=== PATIENT | male | born 1980 | race Two or more races ===

== ENCOUNTER 2016-05-24 20:00 | Inpatient (IN) | payer MEDICAID ==
[~2016-05-24] VITALS: Ht 175.3 cm; Wt 81.6 kg
--- NOTE | 2016-05-24 20:12 | Emergency Room Report ---
History of Present Illness General Chief Complaint: Chest Pain Source: Patient, EMS (MARLY MONTIEL M.D.) Present Illness HPI 35 YOM with 2 hours of dull, 10/10 right sided non-radiating chest pain. No associated SOB, diaphoresis, nausea/vomiting. History of HTN, but doesnt smoke , denies ETOH, denies drugs. Doesnt take meds. EMS gave 3 sprays nitro and ASA with minimal improvement. (MARLY MONTIEL M.D.) Allergies: Coded Allergies: No Known Allergies (Unverified , 05/24/16) Patient History Past Medical History: HTN Past Surgical History: none Pertinent Family History: none Social History: Denies: alcohol use, drug use, smoking Immunizations: UTD Reviewed Nursing Documentation: PMH: Agreed, PSxH: Agreed (MARLY MONTIEL M.D.) Nursing Documentation-PMH Past Medical History: No Stated History (MARLY MONTIEL M.D.) Review of Systems All Other Systems: negative except mentioned in HPI (MARLY MONTIEL M.D.) Physical Exam Vital Signs Date Time Temp Pulse Resp B/P Pulse Ox O2 Delivery O2 Flow Rate FiO2 05/24/16 20:00 132 22 140/82 98 Room Air Sp02 EP Interpretation: reviewed, normal General Appearance: normal inspection, well appearing, no apparent distress, alert Head: normocephalic, atraumatic Eyes: bilateral eye EOMI, bilateral eye PERRL ENT: normal ENT inspection, hearing 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, normal voice Neck: normal inspection, full range of motion, supple, no bony tend Respiratory: normal inspection, lungs clear, normal breath sounds, no respiratory distress, no retraction, no wheezing, other, chest symmetrical Cardiovascular #1: regular rate, rhythm, no edema Gastrointestinal: normal inspection, normal bowel sounds, non tender, soft, no guarding, no hernia Genitourinary: no CVA tenderness Musculoskeletal: normal inspection, back normal, normal range of motion, Ene' s Sign negative Neurologic: normal inspection, alert, responsive, speech normal Psychiatric: normal inspection, judgement/insight normal, mood/affect normal Skin: normal inspection, normal color, no rash (MARLY MONTIEL M.D.) Medical Decision Making Diagnostic Impression: Primary Impression: lung cavitation Additional Impressions: Chest pain Qualified Codes: R07.9 - Chest pain, unspecified Pleurisy Septic embolism ER Course 35 YOM with chest pain. VSS. Afebrile. Initial EKG is sinus tach DDx ACS, PTX, PNA, MSK, PE PLAN Cardiac, O2 monitor, labs/troponin, additional SL nitro as needed, CXR, likely tele admission given severity of pain (MARLY MONTIEL M.D.) ER Course Please for the initial note that was obtained regarding the history exam and presentation At this time the patient was pending CT of the chest CT chest report indicates multiple findings including for nodules Nodules appear to have cavitating lesions Multiple differential diagnoses considered including but not limited to septic emboli, infectious pathology metastatic disease Patient had blood cultures and lactic acid obtained Further pain medication along with anticoagulations And antibiotics provided Patient at this time continues to saturate well and is admitted to telemetry bed for further inpatient care Labs Test 05/24/16 20:10 05/24/16 22:00 White Blood Count 10.8 K/UL (4.8-10.8) Red Blood Count 5.20 M/UL (4.70-6.10) Hemoglobin 15.2 G/DL (14.2-18.0) Hematocrit 44.3 % (42.0-52.0) Mean Corpuscular Volume 85 FL (80-99) Mean Corpuscular Hemoglobin 29.2 PG (27.0-31.0) Mean Corpuscular Hemoglobin Concent 34.2 G/DL (32.0-36.0) Red Cell Distribution Width 11.4 % (11.6-14.8) Platelet Count 201 K/UL (150-450) Mean Platelet Volume 8.9 FL (6.5-10.1) Neutrophils (%) (Auto) 65.7 % (45.0-75.0) Lymphocytes (%) (Auto) 19.8 % (20.0-45.0) Monocytes (%) (Auto) 12.0 % (1.0-10.0) Eosinophils (%) (Auto) 1.3 % (0.0-3.0) Basophils (%) (Auto) 1.3 % (0.0-2.0) Sodium Level 138 mEQ/L (135-145) Potassium Level 4.0 mEQ/L (3.4-4.9) Chloride Level 99 mEQ/L (98-107) Carbon Dioxide Level 22 mEQ/L (20-30) Anion Gap 17 (5-15) Blood Urea Nitrogen 11 mg/dL (7-23) Creatinine 0.8 mg/dL (0.7-1.2) Estimat Glomerular Filtration Rate > 60 mL/min (>60) Glucose Level 115 mg/dL (74-106) Calcium Level 9.4 mg/dL (8.6-10.2) Total Bilirubin 0.5 mg/dL (0.0-1.2) Aspartate Amino Transf (AST/SGOT) 34 U/L (5-40) Alanine Aminotransferase (ALT/SGPT) 43 U/L (3-41) Alkaline Phosphatase 70 U/L (40-129) Total Creatine Kinase 159 U/L (38-174) Creatine Kinase MB 2.3 ng/mL (< 6.7) Creatine Kinase MB Relative Index 1.4 Troponin I < 0.30 ng/mL (<=0.30) Total Protein 7.9 g/dL (6.6-8.7) Albumin 4.7 g/dL (3.5-5.2) Globulin 3.2 g/dL Albumin/Globulin Ratio 1.4 (1.0-2.7) Urine Opiates Screen Positive (NEGATIVE) Urine Barbiturates Screen Negative (NEGATIVE) Phencyclidine (PCP) Screen Negative (NEGATIVE) Urine Amphetamines Screen Negative (NEGATIVE) Urine Benzodiazepines Screen Negative (NEGATIVE) Urine Cocaine Screen Negative (NEGATIVE) Urine Marijuana (THC) Screen Negative (NEGATIVE) (CAMRON NGUYEN D.O.) EKG Diagnostic Results Rate: tachycardiac Rhythm: NSR ST Segments: no acute changes ASA given to the pt in ED: No (MARLY MONTIEL M.D.) Rhythm Strip Diag. Results EP Interpretation: yes Rate: 113 Rhythm: NSR, no PVC's, no ectopy (MARLY MONTIEL M.D.) EP Interpretation: yes Rate: 67 Rhythm: NSR, no PVC's, no ectopy (CAMRON NGUYEN D.O.) Chest X-Ray Diagnostic Results EP Interpretation: Yes Findings: no consolidation, no effusion, no pneumothorax, no acute cardiopulmonary disease Number of Views: 1 (MARLY MONTIEL M.D.) EP Interpretation: Yes Findings: no effusion, no pneumothorax, other - Right upper lobe cavitating lesion, heart size normal Number of Views: 1 (CAMRON NGUYEN D.O.) CT/MRI/US Diagnostic Results CT/MRI/US Diagnostic Results : Impression cT chest:No evidence of pulmonary was and. Evaluation for pulmonary embolus is slightly limited by motion artifact. Evaluation of the lung slightly limited by motion artifact. 4 lung nodules, 2 of which demonstrate evidence of cavitation. 1.1 cm nodule in the right lower lobe and 1.3 cm nodule in the left upper lobe with adjacent mild groundglass opacity and small central lucency suspicious for cavitation. 1.8 x 1.0 cm nodule in the right middle lobe, abutting the anterior pleura. 8 mm nodule in the right lower lobe anteroinferiorly. Most likely considerations include septic emboli and metastatic disease. Other considerations include unusual infections, granulomatosis with polyangiitis, and rheumatoid nodules. No lymphadenopathy. Hepatic steatosis. Mild splenomegaly. Right adrenal 2.8 cm myelolipoma. Mild gynecomastia (CAMRON NGUYEN D.O.) Reevaluation Time: 21:31 Last Vital Signs Date Time Temp Pulse Resp B/P Pulse Ox O2 Delivery O2 Flow Rate FiO2 05/24/16 20:00 132 22 140/82 98 Room Air Status: improved Reevaluation Impression Labs: No leuks. H&H stable. Troponin 0. patient has not given urine for tox yet CXR: No PNA or PTX EKG is NSR, sinus tach. HR improved to 90 from 120 after SL nitro, analgesia A: Patient still c/o severe chest pain despite IV morphine, SL nitro CT Chest done as patient now stating pain is pleuritic in nature CT chest: Endorsed to (MARLY MONTIEL M.D.) Status: improved (CAMRON NGUYEN D.O.) Disposition: ADMITTED INPATIENT Condition: Critical MARLY MONTIEL M.D. May 24, 2016 20:12 CAMRON NGUYEN D.O. May 24, 2016 23:27
[2016-05-24] MEDS ORDERED: Nitroglycerin Subl 0.4mg tab (Bottle Of 25) SL PRN ×2 (20:15→22:00)
[2016-05-24 20:21] LABS: BASOPHILS % (AUTO) 1.3 % (0.0-2.0); EOSINOPHILS % (AUTO) 1.3 % (0.0-3.0); LYMPHOCYTES % (AUTO) 19.8 % (20.0-45.0); MEAN CORPUSCULAR HEMOGLOBIN 29.2 PG (27.0-31.0); MEAN CORPUSCULAR HGB CONC 34.2 G/DL (32.0-36.0); MEAN CORPUSCULAR VOLUME 85 FL (80-99); MEAN PLATELET VOLUME 8.9 FL (6.5-10.1); NEUTROPHILS % (AUTO) 65.7 % (45.0-75.0); PLATELET COUNT 201 K/UL (150-450); RED CELL DISTRIBUTION WIDTH 11.4 % (11.6-14.8); WHITE BLOOD COUNT 10.8 K/UL (4.8-10.8)
[2016-05-24] MEDS ORDERED: Morphine Sulfate 4mg/ml Inj IVP ONE ×2 (20:30→21:30)
[2016-05-24 20:38] LABS: TROPONIN I < 0.30 ng/mL (<=0.30)
[2016-05-24 20:42] LABS: ALANINE AMINOTRANSFERASE 43 U/L (3-41); ALBUMIN/GLOBULIN RATIO 1.4 (1.0-2.7); ANION GAP 17 (5-15); ASPARTATE AMINO TRANSFERASE 34 U/L (5-40); CALCIUM 9.4 mg/dL (8.6-10.2); CARBON DIOXIDE 22 mEQ/L (20-30); CHLORIDE 99 mEQ/L (98-107); CREATININE 0.8 mg/dL (0.7-1.2); GLOMERULAR FILTRATION RATE > 60 mL/min (>60); HEMOLYSIS 22; SODIUM 138 mEQ/L (135-145); TOTAL PROTEIN 7.9 g/dL (6.6-8.7)
[2016-05-24] MEDS ORDERED: NKM (20:51)
[2016-05-24 20:52] LABS: CKMB 2.3 ng/mL (< 6.7)
[2016-05-24 21:00] VITALS: BP 142/80
[2016-05-24 22:00] VITALS: BP 123/78
[2016-05-24] MEDS ORDERED: DuoNeb 0.5-3(2.5)mg/3ml neb HHN PRN (22:00)
[2016-05-24] MEDS ORDERED: Enalaprilat 2.5mg/2ml Inj IV PRN (22:00)
[2016-05-24] MEDS ORDERED: Ketorolac 30mg Inj IV PRN (22:00)
[2016-05-24] MEDS ORDERED: Diltiazem 25mg/5ml IV PRN (22:00)
[2016-05-24] MEDS ORDERED: Miralax 17gm pkt ORAL PRN (22:00)
[2016-05-24 23:00] VITALS: BP 129/83
[2016-05-24] MEDS ORDERED: Heparin 5000 units/ml inj IV ONE (23:15)
[2016-05-24] MEDS ORDERED: Heparin 25,000u/D5W 500ml 500 ML IV SCH (23:15)
[2016-05-24] MEDS ORDERED: HYDROmorphone 1mg/ml Carpuject IVP ONE (23:30)
[2016-05-25] VITALS (17 sets, daily range): BP systolic 113–134; BP diastolic 62–90
[2016-05-25] MEDS ORDERED: Morphine Sulfate 2mg/ml Inj ONE (06:17)
[2016-05-25 06:18] LABS: BASOPHILS % (AUTO) 1.6 % (0.0-2.0); EOSINOPHILS % (AUTO) 1.2 % (0.0-3.0); LYMPHOCYTES % (AUTO) 17.2 % (20.0-45.0); MEAN CORPUSCULAR HEMOGLOBIN 29.1 PG (27.0-31.0); MEAN CORPUSCULAR HGB CONC 33.9 G/DL (32.0-36.0); MEAN CORPUSCULAR VOLUME 86 FL (80-99); MEAN PLATELET VOLUME 9.6 FL (6.5-10.1); MONOCYTES % (AUTO) 10.4 % (1.0-10.0); NEUTROPHILS % (AUTO) 69.7 % (45.0-75.0); PLATELET COUNT 174 K/UL (150-450); RED CELL DISTRIBUTION WIDTH 11.4 % (11.6-14.8); WHITE BLOOD COUNT 10.7 K/UL (4.8-10.8)
[2016-05-25] MEDS: Morphine Sulfate 2mg/ml Inj IVP PRN ×2 (06:23→18:37)
[2016-05-25 06:40] LABS: INR 1.1 (0.9-1.1); PROTHROMBIN TIME 10.7 SEC (9.30-11.50)
[2016-05-25 07:00] LABS: TROPONIN I < 0.30 ng/mL (<=0.30)
[2016-05-25] MEDS ORDERED: Heparin 25,000u/D5W 500ml 500 ML IV SCH ×2 (07:30→16:00)
[2016-05-25] MEDS ORDERED: Heparin 5000 units/ml inj IV ONE ×3 (07:30→16:00)
[2016-05-25 07:47] LABS: CRP QUANT 4.4 mg/dL (< 0.5)
[2016-05-25 07:51] LABS: THYROID STIMULATING HORMONE 1.21 uIU/mL (0.300-4.500)
[2016-05-25] MEDS ORDERED: Heparin 5000 units/ml inj SUBQ SCH ×2 (09:00)
[2016-05-25] MEDS: Aspirin Baby 81mg ORAL SCH (09:27)
--- NOTE | 2016-05-25 10:03 | Diagnostic Imaging Report ---
Indication: PAIN Technique: One view of the chest Comparison: none Findings: Lungs and pleural spaces are clear. Prominent costochondral calcification of the first rib is seen in the right lung apex. The heart size is normal. No acute process. Multiple pulmonary masses described on subsequent chest CT angiogram are not evident on plain radiography Impression: No acute process This agrees with the preliminary interpretation provided by the emergency room physician
--- NOTE | 2016-05-25 11:09 | Cardiac Electrophysiology PN ---
Subjective Subjective Patient seen in ER. [id number] Objective Last 24 Hour Vital Signs Date Time Temp Pulse Resp B/P Pulse Ox O2 Delivery O2 Flow Rate FiO2 05/25/16 08:56 32 05/25/16 08:56 90 21 100 Nasal Cannula 3.0 32 05/25/16 08:55 86 20 99 Nasal Cannula 3.0 32 05/25/16 08:54 86 20 Nasal Cannula 3.0 32 05/25/16 08:00 94 15 131/80 100 Nasal Cannula 3.0 94 05/25/16 07:00 88 15 117/72 96 Nasal Cannula 3.0 88 05/25/16 06:47 98.5 05/25/16 06:00 83 21 115/72 99 Nasal Cannula 3.0 83 05/25/16 05:00 79 18 130/90 98 Nasal Cannula 3.0 79 05/25/16 04:00 80 16 127/62 98 Nasal Cannula 3.0 80 05/25/16 03:42 98.5 80 17 113/82 97 Nasal Cannula 3.0 80 05/25/16 03:00 80 17 113/82 97 Nasal Cannula 3.0 80 05/25/16 02:00 85 18 125/87 91 Nasal Cannula 3.0 05/25/16 01:00 83 18 126/83 97 Nasal Cannula 3.0 05/25/16 00:50 98.5 88 14 124/86 96 Room Air 05/24/16 23:00 94 14 129/83 99 Room Air 05/24/16 22:00 108 15 123/78 91 Room Air 05/24/16 21:00 103 15 142/80 99 Room Air 05/24/16 20:15 153/79 05/24/16 20:10 129 17 Room Air 05/24/16 20:00 132 22 140/82 98 Room Air Intake and Output 05/24/16 05/25/16 19:00 07:00 Intake Total 108.5 ml Balance 108.5 ml Intake IV Total 108.5 ml # Voids 1 Laboratory Tests Test 05/24/16 20:10 05/24/16 22:00 05/25/16 01:15 05/25/16 06:10 White Blood Count 10.8 K/UL (4.8-10.8) 10.7 K/UL (4.8-10.8) Red Blood Count 5.20 M/UL (4.70-6.10) 4.90 M/UL (4.70-6.10) Hemoglobin 15.2 G/DL (14.2-18.0) 14.3 G/DL (14.2-18.0) Hematocrit 44.3 % (42.0-52.0) 42.1 % (42.0-52.0) Mean Corpuscular Volume 85 FL (80-99) 86 FL (80-99) Mean Corpuscular Hemoglobin 29.2 PG (27.0-31.0) 29.1 PG (27.0-31.0) Mean Corpuscular Hemoglobin Concent 34.2 G/DL (32.0-36.0) 33.9 G/DL (32.0-36.0) Red Cell Distribution Width 11.4 % (11.6-14.8) L 11.4 % (11.6-14.8) L Platelet Count 201 K/UL (150-450) 174 K/UL (150-450) Mean Platelet Volume 8.9 FL (6.5-10.1) 9.6 FL (6.5-10.1) Neutrophils (%) (Auto) 65.7 % (45.0-75.0) 69.7 % (45.0-75.0) Lymphocytes (%) (Auto) 19.8 % (20.0-45.0) L 17.2 % (20.0-45.0) L Monocytes (%) (Auto) 12.0 % (1.0-10.0) H 10.4 % (1.0-10.0) H Eosinophils (%) (Auto) 1.3 % (0.0-3.0) 1.2 % (0.0-3.0) Basophils (%) (Auto) 1.3 % (0.0-2.0) 1.6 % (0.0-2.0) Sodium Level 138 mEQ/L (135-145) Potassium Level 4.0 mEQ/L (3.4-4.9) Chloride Level 99 mEQ/L (98-107) Carbon Dioxide Level 22 mEQ/L (20-30) Anion Gap 17 (5-15) H Blood Urea Nitrogen 11 mg/dL (7-23) Creatinine 0.8 mg/dL (0.7-1.2) Estimat Glomerular Filtration Rate > 60 mL/min (>60) Glucose Level 115 mg/dL (74-106) H Calcium Level 9.4 mg/dL (8.6-10.2) Total Bilirubin 0.5 mg/dL (0.0-1.2) Aspartate Amino Transf (AST/SGOT) 34 U/L (5-40) Alanine Aminotransferase (ALT/SGPT) 43 U/L (3-41) H Alkaline Phosphatase 70 U/L (40-129) Total Creatine Kinase 159 U/L (38-174) Creatine Kinase MB 2.3 ng/mL (< 6.7) Creatine Kinase MB Relative Index 1.4 Troponin I < 0.30 ng/mL (<=0.30) < 0.30 ng/mL (<=0.30) Total Protein 7.9 g/dL (6.6-8.7) Albumin 4.7 g/dL (3.5-5.2) Globulin 3.2 g/dL Albumin/Globulin Ratio 1.4 (1.0-2.7) Urine Opiates Screen Positive (NEGATIVE) H Urine Barbiturates Screen Negative (NEGATIVE) Phencyclidine (PCP) Screen Negative (NEGATIVE) Urine Amphetamines Screen Negative (NEGATIVE) Urine Benzodiazepines Screen Negative (NEGATIVE) Urine Cocaine Screen Negative (NEGATIVE) Urine Marijuana (THC) Screen Negative (NEGATIVE) Lactic Acid Level 0.70 mmol/L (0.66-2.22) Prothrombin Time 10.7 SEC (9.30-11.50) Prothromb Time International Ratio 1.1 (0.9-1.1) Activated Partial Thromboplast Time 31 SEC (23-33) C-Reactive Protein, Quantitative 4.4 mg/dL (< 0.5) H Triglycerides Level 176 mg/dL (< 150) H Cholesterol Level 198 mg/dL (< 200) LDL Cholesterol 123 mg/dL (60-99) H HDL Cholesterol 40 mg/dL (> 60) Cholesterol/HDL Ratio 5.0 (3.3-4.4) H Thyroid Stimulating Hormone (TSH) 1.210 uIU/mL (0.300-4.500) JOHN PENA May 25, 2016 11:09
--- NOTE | 2016-05-25 18:48 | Consultation ---
DATE OF CONSULTATION: 05/25/2016 CARDIOLOGY CONSULTATION REFERRING PHYSICIAN: Jesse Dean M.D. REASON FOR CONSULTATION: Tachycardia and shortness of breath. HISTORY OF PRESENT ILLNESS: The patient is a 35-year-old gentleman with no major past medical history and is on no medication at home, came to the emergency room with two hours of dull, 10/10 right-sided chest pain. The patient did not have any shortness of breath. Based on the ER note that he has history of hypertension, but when asked to me does not take any blood pressure medication, takes occasional Tylenol. Denies any prior cardiac issue. The patient received three nitroglycerin sprays and aspirin with minimal improvement. The patient came to the emergency room where the blood pressure was 140/82 with heart rate was 132 and respiration of 22. The patient was put on isolation room. A Cardiology consultation was obtained for further evaluation and management. PAST MEDICAL HISTORY: None. MEDICATIONS: At home is none. SOCIAL HISTORY: He lives with his . Does not smoke or drink alcohol. FAMILY HISTORY: Noncontributory. REVIEW OF SYSTEMS: Negative other than what was mentioned history of present illness. PHYSICAL EXAMINATION: VITAL SIGNS: Blood pressure 140/82, pulse 132, respirations 22. HEAD AND NECK: No JVD. LUNGS: Decreased breath sounds on the right side. CARDIOVASCULAR: Regular S1 and S2 with no gallop or murmur. Tachycardic. ABDOMEN: Soft and nontender. EXTREMITIES: No pitting edema. LABORATORY AND DIAGNOSTIC DATA: His EKG shows sinus tachycardia at [address]-T wave abnormalities. Lab show white count 10.8 and hemoglobin is 15.2. EKG showed sinus tachycardia at a rate of 120s with no acute ST wave abnormality. White count 10.8, hemoglobin 15.2, hematocrit of 44% and platelet count of 201,000. Sodium 138, potassium 4.0, BUN of 11, and creatinine 0.8. Troponin is negative. ASSESSMENT AND PLAN: 1. Tachycardia due to sinus tachycardia with no evidence of atrial fibrillation or any other cardiac arrhythmia, this is likely due to patient's underlying pulmonary process. 2. Right upper chest pain, likely due to the patient's underlying pulmonary process. The patient is in isolation for cavitary lesion on chest CT. ID consultation is pending at the time of this dictation. Thank very much, Dr. Dean, for allowing me to participate in the care of this patient. Please do not hesitate to contact me for any questions regarding my evaluation. Chema Hunter M.D. DR: DAISHA JOB#: [id number] CC:
--- NOTE | 2016-05-25 20:46 | Cardiology Report ---
APPROVED REPORT EKG Measurement Heart [id number] Sinus tachycardia Otherwise normal ECG
[2016-05-26] VITALS: BP 131/83
[2016-05-26] MEDS ORDERED: Heparin 5000 units/ml inj IV ONE
[2016-05-26 04:00] VITALS: BP 133/74
[2016-05-26 08:39] LABS: TROPONIN I < 0.30 ng/mL (<=0.30)
[2016-05-26] MEDS: Aspirin Baby 81mg ORAL SCH (08:45)
[2016-05-26 08:50] VITALS: BP 138/69
[2016-05-26] MEDS ORDERED: Heparin 25,000u/D5W 500ml 500 ML IV SCH ×2 (09:04)
[2016-05-26 09:23] LABS: ANION GAP 18 (5-15); CALCIUM 9.4 mg/dL (8.6-10.2); CARBON DIOXIDE 23 mEQ/L (20-30); CHLORIDE 96 mEQ/L (98-107); CREATININE 0.7 mg/dL (0.7-1.2); GLOMERULAR FILTRATION RATE > 60 mL/min (>60); HEMOLYSIS 6; POTASSIUM 4.1 mEQ/L (3.4-4.9); SODIUM 137 mEQ/L (135-145)
--- NOTE | 2016-05-26 09:57 | Cardiac Electrophysiology PN ---
Assessment/Plan Status: stable, progressing Status Narrative Mr. Pineda is stable from a cardiac standpoint. Chest CT showed no evidence for pulm embolus, but pulm nodules w/ cavitation - concern for TB Assessment/Plan Noncardiac chest pain- no further w/u for CAD indicated. Will dc heparin iv - cont sc heparin for dvt prophylaxis w/u for pulm nodules per Dr. Sorensen Subjective ROS Limited/Unobtainable: No Subjective No c/o dyspnea, cough. He c/o pleuritic R chest pain, Objective Last 24 Hour Vital Signs Date Time Temp Pulse Resp B/P Pulse Ox O2 Delivery O2 Flow Rate FiO2 05/26/16 08:50 97.7 94 18 138/69 94 Room Air 05/26/16 04:00 98.2 94 20 133/74 98 Room Air 05/26/16 04:00 85 05/26/16 00:00 87 05/26/16 00:00 97.9 98 20 131/83 93 Room Air 05/25/16 20:00 90 05/25/16 16:55 96 05/25/16 16:25 87 21 124/77 99 Room Air 05/25/16 16:23 98.5 87 21 124/77 99 Nasal Cannula 86 05/25/16 15:00 86 21 115/70 99 Nasal Cannula 3.0 86 05/25/16 13:00 80 15 131/79 97 Nasal Cannula 3.0 80 05/25/16 12:28 77 12 125/79 99 Nasal Cannula 3.0 77 05/25/16 11:00 90 14 122/76 100 Nasal Cannula 3.0 90 05/25/16 10:00 91 15 134/80 100 Nasal Cannula 3.0 91 General Appearance: WD/WN, no apparent distress, alert EENT: PERRL/EOMI, pharynx normal Neck: supple, no JVD Rhythm: NSR Cardiovascular: normal rate, regular rhythm, no gallop/murmur Respiratory/Chest: no respiratory distress, other - min rhonchi R lower murdock Abdomen: non tender, soft Extremities: no swelling Intake and Output 05/25/16 05/26/16 19:00 07:00 Intake Total 515.146 ml Output Total 1070 ml 1200 ml Balance -1070 ml -684.854 ml Intake Oral 280 ml IV Total 235.146 ml Output Urine Total 1070 ml 1200 ml # Voids 2 Laboratory Tests Test 05/25/16 13:57 05/25/16 22:00 05/26/16 08:05 Activated Partial Thromboplast Time 39 SEC (23-33) H 46 SEC (23-33) H 56 SEC (23-33) H Sodium Level 137 mEQ/L (135-145) Potassium Level 4.1 mEQ/L (3.4-4.9) Chloride Level 96 mEQ/L (98-107) L Carbon Dioxide Level 23 mEQ/L (20-30) Anion Gap 18 (5-15) H Blood Urea Nitrogen 9 mg/dL (7-23) Creatinine 0.7 mg/dL (0.7-1.2) Estimat Glomerular Filtration Rate > 60 mL/min (>60) Glucose Level 119 mg/dL (74-106) H Calcium Level 9.4 mg/dL (8.6-10.2) Troponin I < 0.30 ng/mL (<=0.30) Pro-B-Type Natriuretic Peptide 10 pg/mL (0-125) Microbiology Date/Time Source Procedure Growth Status 05/25/16 01:15 Blood Blood Culture - Preliminary NO GROWTH AFTER 24 HOURS Resulted 05/25/16 01:15 Blood Blood Culture - Preliminary NO GROWTH AFTER 24 HOURS Resulted BOLIVAR PRINCE May 26, 2016 09:57
[2016-05-26 12:00] VITALS: BP 127/87
--- NOTE | 2016-05-26 15:38 | Consultation ---
History of Present Illness General Date patient seen: May 26, 2016 Chief Complaint: Chest Pain Reason for Consultation: cavitary lesion Present Illness HPI 35 year old male presented with right sided chest pain, His CT of chest showed Right upper lobe cavitary lesion. He is admitted to rule out TB and w/u his tachycardia and chest pain Allergies: Coded Allergies: No Known Allergies (Unverified , 05/24/16) Medication History Scheduled No Known Medications* (NKM - No Known Medications*), 0 ., (Reported) Patient History Healthcare decision maker Resuscitation status Full Code Advanced Directive on File Past Medical/Surgical History Past Medical/Surgical History: (1) No significant past medical history Review of Systems Eye: Reports: no symptoms ENT: Reports: no symptoms Respiratory: Reports: no symptoms Cardiovascular: Reports: no symptoms Gastrointestinal: Reports: no symptoms Genitourinary: Reports: no symptoms Physical Exam General Appearance: WD/WN Lines, tubes and drains: peripheral, central line HEENT: normocephalic, atraumatic Neck: non-tender, normal alignment Respiratory/Chest: chest wall non-tender, lungs clear Cardiovascular/Chest: normal peripheral pulses, normal rate Abdomen: normal bowel sounds Genitourinary/Rectal: normal genital exam Extremities: normal range of motion Last 24 Hour Vital Signs Date Time Temp Pulse Resp B/P Pulse Ox O2 Delivery O2 Flow Rate FiO2 05/26/16 12:00 97.5 87 18 127/87 94 Room Air 05/26/16 12:00 80 05/26/16 08:50 97.7 94 18 138/69 94 Room Air 05/26/16 08:00 85 05/26/16 04:00 98.2 94 20 133/74 98 Room Air 05/26/16 04:00 85 05/26/16 00:00 87 05/26/16 00:00 97.9 98 20 131/83 93 Room Air 05/25/16 20:00 90 05/25/16 16:55 96 05/25/16 16:25 87 21 124/77 99 Room Air 05/25/16 16:23 98.5 87 21 124/77 99 Nasal Cannula 86 Intake and Output 05/25/16 05/26/16 19:00 07:00 Intake Total 515.146 ml Output Total 1070 ml 1200 ml Balance -1070 ml -684.854 ml Intake Oral 280 ml IV Total 235.146 ml Output Urine Total 1070 ml 1200 ml # Voids 2 Laboratory Tests Test 05/25/16 22:00 05/26/16 08:05 05/26/16 11:00 Activated Partial Thromboplast Time 46 SEC (23-33) H 56 SEC (23-33) H Sodium Level 137 mEQ/L (135-145) Potassium Level 4.1 mEQ/L (3.4-4.9) Chloride Level 96 mEQ/L (98-107) L Carbon Dioxide Level 23 mEQ/L (20-30) Anion Gap 18 (5-15) H Blood Urea Nitrogen 9 mg/dL (7-23) Creatinine 0.7 mg/dL (0.7-1.2) Estimat Glomerular Filtration Rate > 60 mL/min (>60) Glucose Level 119 mg/dL (74-106) H Calcium Level 9.4 mg/dL (8.6-10.2) Troponin I < 0.30 ng/mL (<=0.30) Pro-B-Type Natriuretic Peptide 10 pg/mL (0-125) TB Test (T-Spot) Pending TB Test Nil Control (T-Spot) Pending TB Test Panel A (T-Spot) Pending TB Test Panel B (T-Spot) Pending TB Test Positive Control (T-Spot) Pending Height (Feet): 5 Height (Inches): 9.00 Weight (Pounds): 180 Medications Current Medications Medications (Trade) Dose Ordered Sig/Keila Route PRN Reason Start Time Stop Time Status Last Admin Dose Admin Acetaminophen (Tylenol) 650 mg Q4H PRN ORAL FEVER 05/24/16 22:00 06/23/16 21:59 Albuterol/ Ipratropium (DuoNeb 0.5-3(2.5)mg/3ml) 3 ml Q4H PRN HHN Shortness of Breath 05/24/16 22:00 05/29/16 21:59 05/25/16 08:48 Aspirin (ASA) 162 mg DAILY ORAL 05/25/16 09:00 06/24/16 08:59 05/26/16 08:45 Diltiazem HCl (Cardizem) 10 mg Q1H PRN IV heart rate more than 120, 05/24/16 22:00 06/23/16 21:59 Enalaprilat (Vasotec) 2.5 mg Q6H PRN IV sbp more than 160 05/24/16 22:00 06/23/16 21:59 Heparin Sodium (Porcine) (Heparin 5000 units/ml) 5,000 units EVERY 12 HOURS SUBQ 05/26/16 21:00 06/25/16 20:59 Morphine Sulfate (Morphine Sulfate) 2 mg Q4H PRN IVP severe Pain (Pain Scale 7-10) 05/24/16 22:00 05/31/16 21:59 05/25/16 18:37 Nitroglycerin (Ntg) 0.4 mg Q5M x 3 doses PRN SL Prn Chest Pain 05/24/16 22:00 06/23/16 21:59 Ondansetron HCl (Zofran) 4 mg Q6H PRN IVP Nausea & Vomiting 05/24/16 22:00 06/23/16 21:59 05/25/16 06:23 Pantoprazole (Protonix) 40 mg ACBREAKFAST ORAL 05/26/16 06:30 06/24/16 08:59 05/25/16 09:28 Polyethylene Glycol (Miralax) 17 gm DAILYPRN PRN ORAL Constipation 05/24/16 22:00 06/23/16 21:59 Temazepam (Restoril) 15 mg HSPRN PRN ORAL Insomnia 05/24/16 22:00 05/31/16 21:59 Assessment/Plan Problem List: (1) Cavitary lung disease ICD Codes: J98.4 - Other disorders of lung SNOMED: 63979607 (2) Chest pain ICD Codes: R07.9 - Chest pain, unspecified SNOMED: [id number] Qualifiers: Qualified Codes: R07.9 - Chest pain, unspecified (3) Pleurisy ICD Codes: R09.1 - Pleurisy SNOMED: 473790169, [id number] Assessment/Plan isolation sputum for afb serology SAGAR CHRIS May 26, 2016 15:38
[2016-05-26 16:00] VITALS: BP 130/68
--- NOTE | 2016-05-26 16:37 | History and Physical Report ---
DATE OF ADMISSION: 05/24/2016 HISTORY OF PRESENT ILLNESS: The patient is admitted for chest pain, rule out acute coronary syndrome. The patient has been complaining of nonradiating chest pain for a couple of days. No associated diaphoresis, nausea, vomiting, or diarrhea. Denies fever or chills. No orthopnea. PAST MEDICAL HISTORY: Significant for hypertension. PAST SURGICAL HISTORY: None. MEDICATIONS: No known medications. ALLERGIES: No known allergies. SOCIAL HISTORY: The patient denies smoking, alcohol, or illicit drugs. FAMILY HISTORY: Noncontributory. REVIEW OF SYSTEMS: HEENT: Denies headache. Respiratory: Denies shortness of breath. Denies cough. Cardiovascular: He reports of chest pain for a couple of days, nonradiating. Not appreciated any orthopnea or palpitation. GI: Denies nausea, vomiting, or diarrhea. Denies heartburn. Extremities: Denies pain. 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 PHYSICAL EXAMINATION: VITAL SIGNS: Temperature is 97.9 degrees, pulse 98, and blood pressure 131/83. HEENT: PERRLA. NECK: Supple. No lymphadenopathy. CHEST: Clear to auscultation. GI: Soft, nontender, and nondistended. No organomegaly. EXTREMITIES: No edema. Moves all four extremities. NEUROLOGIC: Intact to light touch. Reflexes are equal on both sides. Moving all four extremities. Sensory is intact to light touch. LABORATORY DATA: WBC of 10.8, hemoglobin of 15.2, and platelets of 201,000. Troponin is negative. No significant EKG findings. ASSESSMENT AND PLAN: Chest pain, rule out acute coronary syndrome. Consult Dr. Hunter once is done with the workup. We will discharge the patient home. Jesse Dean M.D. DR: LANDON JOB#: [id number] CC:
[2016-05-26 17:01] LABS: BASOPHILS % (AUTO) 2.1 % (0.0-2.0); EOSINOPHILS % (AUTO) 3.2 % (0.0-3.0); LYMPHOCYTES % (AUTO) 20.5 % (20.0-45.0); MEAN CORPUSCULAR HEMOGLOBIN 29.4 PG (27.0-31.0); MEAN CORPUSCULAR HGB CONC 34.1 G/DL (32.0-36.0); MEAN CORPUSCULAR VOLUME 86 FL (80-99); MEAN PLATELET VOLUME 8.9 FL (6.5-10.1); NEUTROPHILS % (AUTO) 63.1 % (45.0-75.0); PLATELET COUNT 207 K/UL (150-450); RED BLOOD COUNT 5.15 M/UL (4.70-6.10); RED CELL DISTRIBUTION WIDTH 10.9 % (11.6-14.8); WHITE BLOOD COUNT 8.8 K/UL (4.8-10.8)
[2016-05-26] MEDS ORDERED: PPD Tuberculin Skin Test 5TU IDERMAL ONE (18:00)
[2016-05-26 20:00] VITALS: BP 126/74
[2016-05-26] MEDS: Heparin 5000 units/ml inj SUBQ SCH (21:45)
[2016-05-27] VITALS: BP 127/65
[2016-05-27 04:13] VITALS: BP 120/91
[2016-05-27 08:46] VITALS: BP 128/76
[2016-05-27] MEDS: Aspirin Baby 81mg ORAL SCH (10:02)
[2016-05-27] MEDS: Heparin 5000 units/ml inj SUBQ SCH ×2 (10:07→21:54)
--- NOTE | 2016-05-27 11:23 | General Progress Note ---
Assessment/Plan Problem List: (1) Chest pain ICD Codes: R07.9 - Chest pain, unspecified SNOMED: 32825886 Qualifiers: Qualified Codes: R07.9 - Chest pain, unspecified (2) Pleurisy ICD Codes: R09.1 - Pleurisy SNOMED: 913444330, [id number] Status: progressing Assessment/Plan chest pain is improving pleuritic and atypical afebrle check trop Subjective ROS Limited/Unobtainable: Yes Constitutional: Reports: no symptoms Allergies: Coded Allergies: No Known Allergies (Unverified , 05/24/16) Objective Last 24 Hour Vital Signs Date Time Temp Pulse Resp B/P Pulse Ox O2 Delivery O2 Flow Rate FiO2 05/27/16 08:46 97.7 82 18 128/76 96 Room Air 05/27/16 08:00 82 05/27/16 04:13 97.0 92 20 120/91 95 Room Air 05/27/16 04:00 80 05/27/16 00:00 85 05/27/16 00:00 98.1 81 20 127/65 96 Room Air 05/26/16 20:00 103 05/26/16 20:00 96.8 93 20 126/74 96 Room Air 05/26/16 16:00 86 05/26/16 16:00 98.2 78 19 130/68 97 Room Air 05/26/16 12:00 97.5 87 18 127/87 94 Room Air 05/26/16 12:00 80 Intake and Output 05/26/16 05/27/16 19:00 07:00 Intake Total 480 ml 250 ml Output Total 650 ml 600 ml Balance -170 ml -350 ml Intake Oral 480 ml 250 ml Output Urine Total 650 ml 600 ml # Voids 2 Laboratory Tests 05/26/16 16:30: White Blood Count 8.8, Red Blood Count 5.15, Hemoglobin 15.1, Hematocrit 44.4, Mean Corpuscular Volume 86, Mean Corpuscular Hemoglobin 29.4, Mean Corpuscular Hemoglobin Concent 34.1, Red Cell Distribution Width 10.9L, Platelet Count 207, Mean Platelet Volume 8.9, Neutrophils (%) (Auto) 63.1, Lymphocytes (%) (Auto) 20.5, Monocytes (%) (Auto) 11.0H, Eosinophils (%) (Auto) 3.2H, Basophils (%) ( Auto) 2.1H, Lactate Dehydrogenase 164, Carcinoembryonic Antigen 0.7, Blastomyces Ab Immunodiffusion [Pending], Cryptococcus Antigen [Pending], Histoplasma Mycelial Antibody [Pending], Histoplasma Antibody w Mycelial Ag [ Pending], Histoplasma Antibody with Yeast Ag [Pending] Height (Feet): 5 Height (Inches): 9.00 Weight (Pounds): 180 General Appearance: confused EENT: PERRL/EOMI Neck: supple Cardiovascular: normal rate Respiratory/Chest: lungs clear Abdomen: soft Jesse Dean MD May 27, 2016 11:23
[2016-05-27 11:52] VITALS: BP 128/79
--- NOTE | 2016-05-27 15:40 | Pulmonology Progress Note ---
Assessment/Plan Problems: (1) Cavitary lung disease (2) Chest pain (3) Pleurisy Assessment/Plan ppd, sputum pending might go to med/surg TB is a real possibility because of Monocytosis Subjective ROS Limited/Unobtainable: No HEENT: Repors: no symptoms Respiratory: Reports: no symptoms Allergies: Coded Allergies: No Known Allergies (Unverified , 05/24/16) Objective Last 24 Hour Vital Signs Date Time Temp Pulse Resp B/P Pulse Ox O2 Delivery O2 Flow Rate FiO2 05/27/16 11:52 97.5 92 18 128/79 95 Room Air 05/27/16 08:46 97.7 82 18 128/76 96 Room Air 05/27/16 08:00 82 05/27/16 04:13 97.0 92 20 120/91 95 Room Air 05/27/16 04:00 80 05/27/16 00:00 85 05/27/16 00:00 98.1 81 20 127/65 96 Room Air 05/26/16 20:00 103 05/26/16 20:00 96.8 93 20 126/74 96 Room Air 05/26/16 16:00 86 05/26/16 16:00 98.2 78 19 130/68 97 Room Air Intake and Output 05/26/16 05/27/16 19:00 07:00 Intake Total 480 ml 250 ml Output Total 650 ml 600 ml Balance -170 ml -350 ml Intake Oral 480 ml 250 ml Output Urine Total 650 ml 600 ml # Voids 2 General Appearance: WD/WN HEENT: normocephalic Respiratory/Chest: chest wall non-tender, lungs clear Cardiovascular: normal peripheral pulses, normal rate Abdomen: normal bowel sounds, soft, non tender Extremities: no cyanosis, no clubbing Skin: no rash Microbiology Date/Time Source Procedure Growth Status 05/25/16 01:15 Blood Blood Culture - Preliminary NO GROWTH AFTER 48 HOURS Resulted 05/25/16 01:15 Blood Blood Culture - Preliminary NO GROWTH AFTER 48 HOURS Resulted 05/26/16 11:15 Sputum AFB Specimen Processing Tissue - Final Resulted 05/26/16 11:15 Sputum Acid Fast Bacilli Smear - Final Resulted 05/26/16 11:15 Sputum Acid Fast Bacilli Culture Pending Resulted Laboratory Tests 05/26/16 16:30: White Blood Count 8.8, Red Blood Count 5.15, Hemoglobin 15.1, Hematocrit 44.4, Mean Corpuscular Volume 86, Mean Corpuscular Hemoglobin 29.4, Mean Corpuscular Hemoglobin Concent 34.1, Red Cell Distribution Width 10.9L, Platelet Count 207, Mean Platelet Volume 8.9, Neutrophils (%) (Auto) 63.1, Lymphocytes (%) (Auto) 20.5, Monocytes (%) (Auto) 11.0H, Eosinophils (%) (Auto) 3.2H, Basophils (%) ( Auto) 2.1H, Lactate Dehydrogenase 164, Carcinoembryonic Antigen 0.7, Blastomyces Ab Immunodiffusion [Pending], Cryptococcus Antigen [Pending], Histoplasma Mycelial Antibody [Pending], Histoplasma Antibody w Mycelial Ag [ Pending], Histoplasma Antibody with Yeast Ag [Pending] Current Medications Medications (Trade) Dose Ordered Sig/Keila Route PRN Reason Start Time Stop Time Status Last Admin Dose Admin Acetaminophen (Tylenol) 650 mg Q4H PRN ORAL FEVER 05/24/16 22:00 06/23/16 21:59 Albuterol/ Ipratropium (DuoNeb 0.5-3(2.5)mg/3ml) 3 ml Q4H PRN HHN Shortness of Breath 05/24/16 22:00 05/29/16 21:59 05/25/16 08:48 Aspirin (ASA) 162 mg DAILY ORAL 05/25/16 09:00 06/24/16 08:59 05/27/16 10:02 Diltiazem HCl (Cardizem) 10 mg Q1H PRN IV heart rate more than 120, 05/24/16 22:00 06/23/16 21:59 Enalaprilat (Vasotec) 2.5 mg Q6H PRN IV sbp more than 160 05/24/16 22:00 06/23/16 21:59 Heparin Sodium (Porcine) (Heparin 5000 units/ml) 5,000 units EVERY 12 HOURS SUBQ 05/26/16 21:00 06/25/16 20:59 05/27/16 10:07 Morphine Sulfate (Morphine Sulfate) 2 mg Q4H PRN IVP severe Pain (Pain Scale 7-10) 05/24/16 22:00 05/31/16 21:59 05/25/16 18:37 Nitroglycerin (Ntg) 0.4 mg Q5M x 3 doses PRN SL Prn Chest Pain 05/24/16 22:00 06/23/16 21:59 Ondansetron HCl (Zofran) 4 mg Q6H PRN IVP Nausea & Vomiting 05/24/16 22:00 06/23/16 21:59 05/25/16 06:23 Pantoprazole (Protonix) 40 mg ACBREAKFAST ORAL 05/26/16 06:30 06/24/16 08:59 05/27/16 06:19 Polyethylene Glycol (Miralax) 17 gm DAILYPRN PRN ORAL Constipation 05/24/16 22:00 06/23/16 21:59 Temazepam (Restoril) 15 mg HSPRN PRN ORAL Insomnia 05/24/16 22:00 05/31/16 21:59 SAGAR CHRIS May 27, 2016 15:40
[2016-05-27 16:28] VITALS: BP 125/77
--- NOTE | 2016-05-27 16:35 | Cardiac Electrophysiology PN ---
Assessment/Plan Status: stable, unchanged Status Narrative Mr. Pineda is stable from a cardiac standpoint. His chest pain appears noncardiac - pleuritic and echo showed no wall motion abnormalities Troponin levels have been negative Chest CT showed no evidence for pulm embolus, but pulm masses w/ cavitation - concern for TB Assessment/Plan Noncardiac chest pain- no further w/u for CAD recommended w/u for pulm nodules / cavitary lesion - ? TB ( sputum negative so far) per pulmonary Subjective ROS Limited/Unobtainable: No Subjective Mr. Pineda has no c/o dyspnea or cough. R sided CP is improving Objective Last 24 Hour Vital Signs Date Time Temp Pulse Resp B/P Pulse Ox O2 Delivery O2 Flow Rate FiO2 05/27/16 15:55 80 05/27/16 11:52 97.5 92 18 128/79 95 Room Air 05/27/16 08:46 97.7 82 18 128/76 96 Room Air 05/27/16 08:00 82 05/27/16 04:13 97.0 92 20 120/91 95 Room Air 05/27/16 04:00 80 05/27/16 00:00 85 05/27/16 00:00 98.1 81 20 127/65 96 Room Air 05/26/16 20:00 103 05/26/16 20:00 96.8 93 20 126/74 96 Room Air General Appearance: WD/WN, no apparent distress EENT: PERRL/EOMI Neck: supple, no JVD Rhythm: NSR Cardiovascular: normal rate, regular rhythm, no gallop/murmur Respiratory/Chest: lungs clear Abdomen: non tender, soft Extremities: no swelling Intake and Output 05/26/16 05/27/16 19:00 07:00 Intake Total 480 ml 250 ml Output Total 650 ml 600 ml Balance -170 ml -350 ml Intake Oral 480 ml 250 ml Output Urine Total 650 ml 600 ml # Voids 2 Laboratory Tests Test 05/26/16 16:30 White Blood Count 8.8 K/UL (4.8-10.8) Red Blood Count 5.15 M/UL (4.70-6.10) Hemoglobin 15.1 G/DL (14.2-18.0) Hematocrit 44.4 % (42.0-52.0) Mean Corpuscular Volume 86 FL (80-99) Mean Corpuscular Hemoglobin 29.4 PG (27.0-31.0) Mean Corpuscular Hemoglobin Concent 34.1 G/DL (32.0-36.0) Red Cell Distribution Width 10.9 % (11.6-14.8) L Platelet Count 207 K/UL (150-450) Mean Platelet Volume 8.9 FL (6.5-10.1) Neutrophils (%) (Auto) 63.1 % (45.0-75.0) Lymphocytes (%) (Auto) 20.5 % (20.0-45.0) Monocytes (%) (Auto) 11.0 % (1.0-10.0) H Eosinophils (%) (Auto) 3.2 % (0.0-3.0) H Basophils (%) (Auto) 2.1 % (0.0-2.0) H Lactate Dehydrogenase 164 U/L (135-230) Carcinoembryonic Antigen 0.7 ng/mL Blastomyces Ab Immunodiffusion Pending Cryptococcus Antigen Pending Histoplasma Mycelial Antibody Pending Histoplasma Antibody w Mycelial Ag Pending Histoplasma Antibody with Yeast Ag Pending Microbiology Date/Time Source Procedure Growth Status 05/25/16 01:15 Blood Blood Culture - Preliminary NO GROWTH AFTER 48 HOURS Resulted 05/25/16 01:15 Blood Blood Culture - Preliminary NO GROWTH AFTER 48 HOURS Resulted 05/26/16 11:15 Sputum AFB Specimen Processing Tissue - Final Resulted 05/26/16 11:15 Sputum Acid Fast Bacilli Smear - Final Resulted 05/26/16 11:15 Sputum Acid Fast Bacilli Culture Pending Resulted BOLIVAR PRINCE May 27, 2016 16:35
[2016-05-27 20:00] VITALS: BP 134/66
[2016-05-28 00:28] VITALS: BP 131/86
[2016-05-28 04:00] VITALS: BP 143/54
[2016-05-28 08:00] VITALS: BP 125/94
[2016-05-28] MEDS: Aspirin Baby 81mg ORAL SCH (08:32)
[2016-05-28] MEDS: Heparin 5000 units/ml inj SUBQ SCH ×2 (08:32→22:14)
--- NOTE | 2016-05-28 10:24 | Diagnostic Imaging Report ---
ndication: PAIN right-sided chest pain, squeezing, tightness Technique: IV administration nonionic contrast. Spiral acquisitions obtained from the lung bases to the lung apices. Multiplanar and 3-D reconstructions were generated. Total dose length product 1192 mGycm. CTDIvol(s) 12, 12, 31 mGy Comparison: None Findings: Motion artifact results in some image degradation. There is adequate opacification of the pulmonary arteries. No intraluminal filling defects or other findings to suggest acute pulmonary embolus are identified. Normal caliber pulmonary arteries. No evidence of thoracic aortic aneurysm or dissection. The heart size is upper limits of normal. There is suggestion of left ventricular muscular hypertrophy. Lungs demonstrate a soft tissue attenuation mass in the left upper lobe which measures 13 mm diameter, demonstrates a small central cavitation. There is a similar-appearing mass in the right middle lobe extending to the pleural surface, and similar lesion in the right lower lobe. A fourth lesion, also in the right lower lobe adjacent to the diaphragm, is slightly smaller and does not demonstrate any cavitation. There are scattered areas of groundglass opacity, most predominantly in the upper lungs. No mediastinal or hilar mass or adenopathy demonstrated. No axillary or chest wall mass or adenopathy. Included upper abdominal anatomy demonstrates thyromegaly. There is marked hypoattenuation of the liver is, consistent with fatty change, with areas of sparing in posterior segments 2 and 3 and in the usual location adjacent to the gallbladder fossa. There is a 3 cm right adrenal mass which is almost entirely fat attenuation. Impression: Negative evidence of acute pulmonary embolus or other acute thoracic vascular pathology Multiple masslike lesions with central cavitation, as described. While possibly on the basis of multifocal cavitary metastases, given patient's age suspect that these represent disseminated inflammatory foci, possibly mycobacterial infection. Correlate with clinical findings Scattered areas of pulmonary parenchymal groundglass opacity, nonspecific, could represent areas of parenchymal crowding or atelectasis, areas of inflammation, or areas of mild edema. Enlarged fatty liver. Areas of focal sparing of fatty change is noted 3 cm right adrenal myelolipoma Possible mild left ventricular muscular hypertrophy This agrees with the preliminary interpretation provided overnight by [facility] teleradiology service. The CT scanner at [facility] is accredited by the [employer] and the scans are performed using protocols designed to limit radiation exposure to as low as reasonably achievable to attain images of sufficient resolution adequate for diagnostic evaluation.
--- NOTE | 2016-05-28 10:25 | Cardiology Report ---
APPROVED REPORT EXAM: Two-dimensional and M-mode echocardiogram with Doppler and color Doppler. INDICATION SOB M-Mode DIMENSIONS IVSd1.4 (0.7-1.1cm)Left Atrium (MM)3.7 (1.6-4.0cm) LVDd4.3 (3.5-5.6cm)Aortic Root4.0 (2.0-3.7cm) PWd1.5 (0.7-1.1cm)Aortic Cusp Exc.2.2 (1.5-2.0cm) LVDs2.4 (2.5-4.0cm) PWs2.3 cm Normal left ventricular chamber size, systolic function and wall motion. Left ventricular ejection fraction estimated to be 65 %. Mild left ventricular hypertrophy. Anterior Echo-free space, may be due to pericardial fat or effusion. Left atrial size at upper limits of normal. Right cardiac chamber sizes are within normal limits. Mild focal aortic valve sclerosis with adequate cusp excursion. Mildly thickened mitral valve leaflets with normal excursion. Mitral annulus and aortic root calcification. Aortic root dilatation. Pulmonic valve not well visualized. Normal tricuspid valve structure. IVC at normal size with physiologic collapse. A color flow and spectral Doppler study was performed and revealed: Trace aortic regurgitation. Mild mitral regurgitation. Mitral inflow indicates normal left ventricular diastolic function Trace tricuspid regurgitation. Tricuspid systolic velocities suggests peak right ventricular systolic pressure of 26 mmHg.
--- NOTE | 2016-05-28 11:14 | Cardiac Electrophysiology PN ---
Assessment/Plan Status: stable, unchanged Status Narrative Mr. Pineda is stable. Pleuritic CP has resolved. ECHO shows no wall motion abnormalities. Chest CT showed no evidence for pulm embolus, but pulm masses w/ cavitation - concern for TB Skin test appears positive. 1 sputum negative for afb and bld cx negative Assessment/Plan Noncardiac chest pain- resolved. No further w/u for CAD recommended He can be transferred off telemetry, but requires isolation for possible TB Further assessment for ? TB w/ additional sputum cx and ? bronchoscopy. Management per Dr. Servin Subjective Subjective Mr. Pineda has no c/o dyspnea or cough. His CP has resolved Objective Last 24 Hour Vital Signs Date Time Temp Pulse Resp B/P Pulse Ox O2 Delivery O2 Flow Rate FiO2 05/28/16 08:00 98.1 90 20 125/94 95 Room Air 05/28/16 04:00 98.1 16 143/54 92 Room Air 05/28/16 00:28 98.1 14 131/86 99 Room Air 05/27/16 20:00 112 05/27/16 20:00 98.1 94 13 134/66 97 Room Air 05/27/16 16:28 96.9 17 125/77 89 Room Air 05/27/16 15:55 80 05/27/16 11:52 97.5 92 18 128/79 95 Room Air General Appearance: WD/WN, no apparent distress, alert Neck: non-tender, supple, no JVD Rhythm: NSR Cardiovascular: normal rate, regular rhythm Respiratory/Chest: lungs clear Abdomen: non tender, soft Extremities: no swelling Intake and Output 05/27/16 05/28/16 19:00 07:00 Intake Total 480 ml 600 ml Balance 480 ml 600 ml Intake Oral 480 ml 600 ml # Voids 3 2 Laboratory Tests Test 05/27/16 17:45 M. tuberculosis Complex DNA (PCR) Pending Microbiology Date/Time Source Procedure Growth Status 05/26/16 11:15 Sputum AFB Specimen Processing Tissue - Final Resulted 05/26/16 11:15 Sputum Acid Fast Bacilli Smear - Final Resulted 05/26/16 11:15 Sputum Acid Fast Bacilli Culture Pending Resulted BOLIVAR PRINCE May 28, 2016 11:14
[2016-05-28 12:00] VITALS: BP 131/89
--- NOTE | 2016-05-28 12:19 | Pulmonology Progress Note ---
Assessment/Plan Assessment/Plan ASSESSMENT cavitary lung disease r/o TB pleuritic chest pain HTN mixed hyperlipidemia PLAN OF CARE transfer to MS floor isolation O2 HHN prn CTA thorax - Multiple masslike lesions with central cavitation,c While possibly on the basis of multifocal cavitary metastases, given patient's age suspect that these represent disseminated inflammatory foci, possibly mycobacterial infection. sputum AFB x 3 ( 2 negative) PPD pending serial troponin x 3 negative, ECG no ST changes, cardio ruled out for ACS ECHO with preserved EF 65% and RVSP of 26 per cardio - chest pain noncardiac, no further cardiac w/up is needed chest pain likely pleuritic, resolved lipid panel with elevated LDL and TG, on statin, add fish oil educated on low fat low cholesterol diet monitor BP, currently stable DVT, GI prophylaxis pain management case discussed and evaluated by supervising physician transfer to MS floor Subjective Allergies: Coded Allergies: No Known Allergies (Unverified , 05/24/16) Subjective denies CP, SOB, on RA sat stable afebrile, no leucocytosis Objective Last 24 Hour Vital Signs Date Time Temp Pulse Resp B/P Pulse Ox O2 Delivery O2 Flow Rate FiO2 05/28/16 08:00 98.1 90 20 125/94 95 Room Air 05/28/16 04:00 98.1 16 143/54 92 Room Air 05/28/16 00:28 98.1 14 131/86 99 Room Air 05/27/16 20:00 112 05/27/16 20:00 98.1 94 13 134/66 97 Room Air 05/27/16 16:28 96.9 17 125/77 89 Room Air 05/27/16 15:55 80 Intake and Output 05/27/16 05/28/16 19:00 07:00 Intake Total 480 ml 600 ml Balance 480 ml 600 ml Intake Oral 480 ml 600 ml # Voids 3 2 General Appearance: WD/WN, no acute distress HEENT: normocephalic, atraumatic, anicteric, mucous membranes moist, PERRL Respiratory/Chest: chest wall non-tender, lungs clear - with moderate air intake , no respiratory distress, no accessory muscle use Cardiovascular: normal rate, regular rhythm Abdomen: soft, non tender, non distended Extremities: no edema 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 tuberculosis Complex DNA (PCR) [Pending] Current Medications Medications (Trade) Dose Ordered Sig/Keila Route PRN Reason Start Time Stop Time Status Last Admin Dose Admin Acetaminophen (Tylenol) 650 mg Q4H PRN ORAL FEVER 05/24/16 22:00 06/23/16 21:59 Albuterol/ Ipratropium (DuoNeb 0.5-3(2.5)mg/3ml) 3 ml Q4H PRN HHN Shortness of Breath 05/24/16 22:00 05/29/16 21:59 05/25/16 08:48 Aspirin (ASA) 162 mg DAILY ORAL 05/25/16 09:00 06/24/16 08:59 05/28/16 08:32 Diltiazem HCl (Cardizem) 10 mg Q1H PRN IV heart rate more than 120, 05/24/16 22:00 06/23/16 21:59 Enalaprilat (Vasotec) 2.5 mg Q6H PRN IV sbp more than 160 05/24/16 22:00 06/23/16 21:59 Heparin Sodium (Porcine) (Heparin 5000 units/ml) 5,000 units EVERY 12 HOURS SUBQ 05/26/16 21:00 06/25/16 20:59 05/27/16 21:54 Morphine Sulfate (Morphine Sulfate) 2 mg Q4H PRN IVP severe Pain (Pain Scale 7-10) 05/24/16 22:00 05/31/16 21:59 05/25/16 18:37 Nitroglycerin (Ntg) 0.4 mg Q5M x 3 doses PRN SL Prn Chest Pain 05/24/16 22:00 06/23/16 21:59 Ondansetron HCl (Zofran) 4 mg Q6H PRN IVP Nausea & Vomiting 05/24/16 22:00 06/23/16 21:59 05/25/16 06:23 Pantoprazole (Protonix) 40 mg ACBREAKFAST ORAL 05/26/16 06:30 06/24/16 08:59 05/28/16 05:55 Polyethylene Glycol (Miralax) 17 gm DAILYPRN PRN ORAL Constipation 05/24/16 22:00 06/23/16 21:59 Temazepam (Restoril) 15 mg HSPRN PRN ORAL Insomnia 05/24/16 22:00 05/31/16 21:59 Garth ([facility])Yanci NP May 28, 2016 12:19
--- NOTE | 2016-05-28 13:53 | General Progress Note ---
Assessment/Plan Problem List: (1) Chest pain ICD Codes: R07.9 - Chest pain, unspecified SNOMED: 79632495 Qualifiers: Qualified Codes: R07.9 - Chest pain, unspecified (2) Pleurisy ICD Codes: R09.1 - Pleurisy SNOMED: 431134640, [id number] Status: progressing Assessment/Plan chest pain improved need clearance from cardio Subjective ROS Limited/Unobtainable: Yes Constitutional: Reports: no symptoms Allergies: Coded Allergies: No Known Allergies (Unverified , 05/24/16) Objective Last 24 Hour Vital Signs Date Time Temp Pulse Resp B/P Pulse Ox O2 Delivery O2 Flow Rate FiO2 05/28/16 12:00 97.5 91 21 131/89 97 Room Air 05/28/16 08:00 98.1 90 20 125/94 95 Room Air 05/28/16 04:00 98.1 16 143/54 92 Room Air 05/28/16 00:28 98.1 14 131/86 99 Room Air 05/27/16 20:00 112 05/27/16 20:00 98.1 94 13 134/66 97 Room Air 05/27/16 16:28 96.9 17 125/77 89 Room Air 05/27/16 15:55 80 Intake and Output 05/27/16 05/28/16 19:00 07:00 Intake Total 480 ml 600 ml Balance 480 ml 600 ml Intake Oral 480 ml 600 ml # Voids 3 2 Laboratory Tests 05/27/16 17:45: M. tuberculosis Complex DNA (PCR) [Pending] Height (Feet): 5 Height (Inches): 9.00 Weight (Pounds): 180 EENT: PERRL/EOMI Neck: supple Respiratory/Chest: lungs clear Abdomen: soft Jesse Dean MD May 28, 2016 13:53
[2016-05-28 16:00] VITALS: BP 133/86
[2016-05-28 20:00] VITALS: BP 140/90
[2016-05-29] VITALS (7 sets, daily range): BP systolic 115–138; BP diastolic 66–88
[2016-05-29 08:08] LABS: BASOPHILS % (AUTO) 1.9 % (0.0-2.0); EOSINOPHILS % (AUTO) 2.8 % (0.0-3.0); LYMPHOCYTES % (AUTO) 16.8 % (20.0-45.0); MEAN CORPUSCULAR HEMOGLOBIN 29.5 PG (27.0-31.0); MEAN CORPUSCULAR HGB CONC 34.3 G/DL (32.0-36.0); MEAN CORPUSCULAR VOLUME 86 FL (80-99); MONOCYTES % (AUTO) 7.2 % (1.0-10.0); NEUTROPHILS % (AUTO) 71.3 % (45.0-75.0); PLATELET COUNT 284 K/UL (150-450); RED BLOOD COUNT 5.37 M/UL (4.70-6.10); RED CELL DISTRIBUTION WIDTH 11.1 % (11.6-14.8); WHITE BLOOD COUNT 11.2 K/UL (4.8-10.8)
[2016-05-29 08:15] LABS: ANION GAP 15 (5-15); CALCIUM 9.5 mg/dL (8.6-10.2); CARBON DIOXIDE 28 mEQ/L (20-30); CHLORIDE 99 mEQ/L (98-107); CREATININE 0.8 mg/dL (0.7-1.2); GLOMERULAR FILTRATION RATE > 60 mL/min (>60); HEMOLYSIS 3; POTASSIUM 4.3 mEQ/L (3.4-4.9); SODIUM 142 mEQ/L (135-145)
[2016-05-29] MEDS: Heparin 5000 units/ml inj SUBQ SCH ×2 (08:18→21:00)
[2016-05-29] MEDS: Aspirin Baby 81mg ORAL SCH (08:18)
--- NOTE | 2016-05-29 08:30 | General Progress Note ---
Assessment/Plan Problem List: (1) Chest pain ICD Codes: R07.9 - Chest pain, unspecified SNOMED: 53801463 Qualifiers: Qualified Codes: R07.9 - Chest pain, unspecified (2) Pleurisy ICD Codes: R09.1 - Pleurisy SNOMED: 394391819, [id number] Status: progressing Assessment/Plan afebrile vitals stable no wheezing no cp r/o acs Subjective ROS Limited/Unobtainable: Yes Allergies: Coded Allergies: No Known Allergies (Unverified , 05/24/16) Objective Last 24 Hour Vital Signs Date Time Temp Pulse Resp B/P Pulse Ox O2 Delivery O2 Flow Rate FiO2 05/29/16 04:00 97.7 97 16 135/87 96 Room Air 05/29/16 00:00 97.7 88 18 138/88 96 Room Air 05/28/16 20:00 97.4 101 16 140/90 96 Room Air 05/28/16 16:00 97.7 64 17 133/86 96 Room Air 05/28/16 12:00 97.5 91 21 131/89 97 Room Air Intake and Output 05/28/16 05/29/16 19:00 07:00 Intake Total 420 ml 250 ml Balance 420 ml 250 ml Intake Oral 420 ml 250 ml # Voids 2 4 Laboratory Tests 05/28/16 19:00: M. tuberculosis Complex DNA (PCR) [Pending] 05/29/16 07:00: White Blood Count 11.2H, Red Blood Count 5.37, Hemoglobin 15.8, Hematocrit 46.2 , Mean Corpuscular Volume 86, Mean Corpuscular Hemoglobin 29.5, Mean Corpuscular Hemoglobin Concent 34.3, Red Cell Distribution Width 11.1L, Platelet Count 284, Mean Platelet Volume 8.0, Neutrophils (%) (Auto) 71.3, Lymphocytes (%) (Auto) 16.8L, Monocytes (%) (Auto) 7.2, Eosinophils (%) (Auto) 2.8, Basophils (%) (Auto) 1.9, Sodium Level 142, Potassium Level 4.3, Chloride Level 99, Carbon Dioxide Level 28, Anion Gap 15, Blood Urea Nitrogen 8, Creatinine 0.8, Estimat Glomerular Filtration Rate > 60, Glucose Level 111H, Calcium Level 9.5 Height (Feet): 5 Height (Inches): 9.00 Weight (Pounds): 180 EENT: PERRL/EOMI Neck: supple Cardiovascular: normal rate Respiratory/Chest: lungs clear Abdomen: soft Jesse Dean MD May 29, 2016 08:30
--- NOTE | 2016-05-29 13:05 | Pulmonology Progress Note ---
Assessment/Plan Assessment/Plan ASSESSMENT cavitary lung disease r/o TB pleuritic chest pain HTN mixed hyperlipidemia PLAN OF CARE transfer to MS floor respiratory/airborne isolation O2 HHN prn CTA thorax - Multiple masslike lesions with central cavitation,c While possibly on the basis of multifocal cavitary metastases, given patient's age suspect that these represent disseminated inflammatory foci, possibly mycobacterial infection. sputum AFB x 3 ( 2 negative) PPD positive ID consult as per PMD discretion CRP elevated, ESR pending initial monocytosis highly suggestive of possibility of TB infection , currently monocytes WNL fungal serology, TB serology, M.tuberculosis by PCR all pending serial troponin x 3 negative, ECG no ST changes, cardio ruled out for ACS ECHO with preserved EF 65% and RVSP of 26 per cardio - chest pain noncardiac, no further cardiac w/up is needed chest pain likely pleuritic, resolved lipid panel with elevated LDL and TG, on statin, add fish oil educated on low fat low cholesterol diet monitor BP, currently stable DVT, GI prophylaxis pain management case discussed and evaluated by supervising physician transfer to CT floor Subjective Allergies: Coded Allergies: No Known Allergies (Unverified , 05/24/16) Subjective denies CP, SOB, on RA sat stable afebrile, mild leucocytosis today PPD read today -positive Objective Last 24 Hour Vital Signs Date Time Temp Pulse Resp B/P Pulse Ox O2 Delivery O2 Flow Rate FiO2 05/29/16 08:00 97.7 81 18 115/67 98 Room Air 05/29/16 04:00 97.7 97 16 135/87 96 Room Air 05/29/16 00:00 97.7 88 18 138/88 96 Room Air 05/28/16 20:00 97.4 101 16 140/90 96 Room Air 05/28/16 16:00 97.7 64 17 133/86 96 Room Air Intake and Output 05/28/16 05/29/16 19:00 07:00 Intake Total 420 ml 250 ml Balance 420 ml 250 ml Intake Oral 420 ml 250 ml # Voids 2 4 Objective General Appearance: WD/WN, no acute distress HEENT: normocephalic, atraumatic, anicteric, mucous membranes moist, PERRL Respiratory/Chest: chest wall non-tender, lungs clear - with moderate air intake , no respiratory distress, no accessory muscle use Cardiovascular: normal rate, regular rhythm Abdomen: soft, non tender, non distended Extremities: no edema Neurologic/Psychiatric: 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 tuberculosis Complex DNA (PCR) [Pending] 05/29/16 07:00: White Blood Count 11.2H, Red Blood Count 5.37, Hemoglobin 15.8, Hematocrit 46.2 , Mean Corpuscular Volume 86, Mean Corpuscular Hemoglobin 29.5, Mean Corpuscular Hemoglobin Concent 34.3, Red Cell Distribution Width 11.1L, Platelet Count 284, Mean Platelet Volume 8.0, Neutrophils (%) (Auto) 71.3, Lymphocytes (%) (Auto) 16.8L, Monocytes (%) (Auto) 7.2, Eosinophils (%) (Auto) 2.8, Basophils (%) (Auto) 1.9, Erythrocyte Sedimentation Rate [Pending], Sodium Level 142, Potassium Level 4.3, Chloride Level 99, Carbon Dioxide Level 28, Anion Gap 15, Blood Urea Nitrogen 8, Creatinine 0.8, Estimat Glomerular Filtration Rate > 60, Glucose Level 111H, Calcium Level 9.5, C-Reactive Protein , Quantitative 2.9H Current Medications Medications (Trade) Dose Ordered Sig/Keila Route PRN Reason Start Time Stop Time Status Last Admin Dose Admin Acetaminophen (Tylenol) 650 mg Q4H PRN ORAL FEVER 05/24/16 22:00 06/23/16 21:59 Albuterol/ Ipratropium (DuoNeb 0.5-3(2.5)mg/3ml) 3 ml Q4H PRN HHN Shortness of Breath 05/24/16 22:00 05/29/16 21:59 05/25/16 08:48 Aspirin (ASA) 162 mg DAILY ORAL 05/25/16 09:00 06/24/16 08:59 05/29/16 08:18 Diltiazem HCl (Cardizem) 10 mg Q1H PRN IV heart rate more than 120, 05/24/16 22:00 06/23/16 21:59 Enalaprilat (Vasotec) 2.5 mg Q6H PRN IV sbp more than 160 05/24/16 22:00 06/23/16 21:59 Fish Oil (Fish Oil) 1,000 mg DAILY ORAL 05/29/16 09:00 06/28/16 08:59 05/29/16 08:17 Heparin Sodium (Porcine) (Heparin 5000 units/ml) 5,000 units EVERY 12 HOURS SUBQ 05/26/16 21:00 06/25/16 20:59 05/28/16 22:14 Morphine Sulfate (Morphine Sulfate) 2 mg Q4H PRN IVP severe Pain (Pain Scale 7-10) 05/24/16 22:00 05/31/16 21:59 05/25/16 18:37 Nitroglycerin (Ntg) 0.4 mg Q5M x 3 doses PRN SL Prn Chest Pain 05/24/16 22:00 06/23/16 21:59 Ondansetron HCl (Zofran) 4 mg Q6H PRN IVP Nausea & Vomiting 05/24/16 22:00 06/23/16 21:59 05/25/16 06:23 Pantoprazole (Protonix) 40 mg ACBREAKFAST ORAL 05/26/16 06:30 06/24/16 08:59 05/29/16 06:44 Polyethylene Glycol (Miralax) 17 gm DAILYPRN PRN ORAL Constipation 05/24/16 22:00 06/23/16 21:59 Temazepam (Restoril) 15 mg HSPRN PRN ORAL Insomnia 05/24/16 22:00 05/31/16 21:59 [facility] HospitalYanci Berger NP May 29, 2016 13:05
[2016-05-29 13:37] LABS: PATH BLOOD SMEAR/OMC SENT TO PATHOLOGIST
[2016-05-29] MEDS ORDERED: DuoNeb 0.5-3(2.5)mg/3ml neb HHN PRN ×2 (14:00→18:00)
[2016-05-29] MEDS ORDERED: Nitroglycerin Subl 0.4mg tab (Bottle Of 25) SL PRN (14:45)
--- NOTE | 2016-05-29 17:44 | Infectious Diseases Prog Note ---
Assessment/Plan Problems: (1) Cavitary lung disease Assessment & Plan: mycobacterium, VS fungal VS malignant process with mets, continue respiratory isolation until TB is ruled out , await sputum AFB smears , and fungal serology, will add coccidiomycosis, aspergillosis , and HIV test , await T spot result, Echo didn't show any valvular vegetation to explain septic emboli , and blood culture remained negative . (2) Pleurisy Assessment & Plan: due to the above, continue pain management as per primary Subjective Allergies: Coded Allergies: No Known Allergies (Unverified , 05/24/16) Objective Vital Signs Last 24 Hour Vital Signs Date Time Temp Pulse Resp B/P Pulse Ox O2 Delivery O2 Flow Rate FiO2 05/29/16 14:50 97.5 98 18 134/87 95 Room Air 05/29/16 12:00 97.8 94 17 136/66 95 Room Air 05/29/16 08:00 97.7 81 18 115/67 98 Room Air 05/29/16 04:00 97.7 97 16 135/87 96 Room Air 05/29/16 00:00 97.7 88 18 138/88 96 Room Air 05/28/16 20:00 97.4 101 16 140/90 96 Room Air Height (Feet): 5 Height (Inches): 9.00 Weight (Pounds): 180 Laboratory Tests Test 05/28/16 19:00 05/29/16 07:00 M. tuberculosis Complex DNA (PCR) Pending White Blood Count 11.2 K/UL (4.8-10.8) H Red Blood Count 5.37 M/UL (4.70-6.10) Hemoglobin 15.8 G/DL (14.2-18.0) Hematocrit 46.2 % (42.0-52.0) Mean Corpuscular Volume 86 FL (80-99) Mean Corpuscular Hemoglobin 29.5 PG (27.0-31.0) Mean Corpuscular Hemoglobin Concent 34.3 G/DL (32.0-36.0) Red Cell Distribution Width 11.1 % (11.6-14.8) L Platelet Count 284 K/UL (150-450) Mean Platelet Volume 8.0 FL (6.5-10.1) Neutrophils (%) (Auto) 71.3 % (45.0-75.0) Lymphocytes (%) (Auto) 16.8 % (20.0-45.0) L Monocytes (%) (Auto) 7.2 % (1.0-10.0) Eosinophils (%) (Auto) 2.8 % (0.0-3.0) Basophils (%) (Auto) 1.9 % (0.0-2.0) Erythrocyte Sedimentation Rate 44 MM/HR (0-15) H Sodium Level 142 mEQ/L (135-145) Potassium Level 4.3 mEQ/L (3.4-4.9) Chloride Level 99 mEQ/L (98-107) Carbon Dioxide Level 28 mEQ/L (20-30) Anion Gap 15 (5-15) Blood Urea Nitrogen 8 mg/dL (7-23) Creatinine 0.8 mg/dL (0.7-1.2) Estimat Glomerular Filtration Rate > 60 mL/min (>60) Glucose Level 111 mg/dL (74-106) H Calcium Level 9.5 mg/dL (8.6-10.2) C-Reactive Protein, Quantitative 2.9 mg/dL (< 0.5) H Current Medications Medications (Trade) Dose Ordered Sig/Keila Route PRN Reason Start Time Stop Time Status Last Admin Dose Admin Acetaminophen (Tylenol) 650 mg Q4H PRN ORAL FEVER 05/29/16 18:00 06/28/16 17:59 Albuterol/ Ipratropium (DuoNeb 0.5-3(2.5)mg/3ml) 3 ml Q4H PRN HHN Shortness of Breath 05/29/16 18:00 06/03/16 17:59 Aspirin (ASA) 162 mg DAILY ORAL 05/30/16 09:00 06/29/16 08:59 Fish Oil (Fish Oil) 1,000 mg DAILY ORAL 05/30/16 09:00 06/29/16 08:59 Heparin Sodium (Porcine) (Heparin 5000 units/ml) 5,000 units EVERY 12 HOURS SUBQ 05/29/16 21:00 06/28/16 20:59 Morphine Sulfate (Morphine Sulfate) 2 mg Q4H PRN IVP severe Pain (Pain Scale 7-10) 05/29/16 18:00 06/05/16 17:59 Nitroglycerin (Ntg) 0.4 mg Q5M x 3 doses PRN SL Prn Chest Pain 05/29/16 14:45 06/28/16 14:44 Ondansetron HCl (Zofran) 4 mg Q6H PRN IVP Nausea & Vomiting 05/29/16 16:00 06/28/16 15:59 Pantoprazole (Protonix) 40 mg ACBREAKFAST ORAL 05/30/16 06:30 06/29/16 06:29 Polyethylene Glycol (Miralax) 17 gm DAILYPRN PRN ORAL Constipation 05/29/16 22:00 06/28/16 21:59 Temazepam (Restoril) 15 mg HSPRN PRN ORAL Insomnia 05/29/16 22:00 06/05/16 21:59 Erin Navarrete M.D. May 29, 2016 17:44
[2016-05-29] MEDS ORDERED: Morphine Sulfate 2mg/ml Inj IVP PRN (18:00)
[2016-05-29 19:05] LABS: EOSINOPHILS % (AUTO) 3.2 % (0.0-3.0); LYMPHOCYTES % (AUTO) 20.6 % (20.0-45.0); MEAN CORPUSCULAR HEMOGLOBIN 29.1 PG (27.0-31.0); MEAN CORPUSCULAR HGB CONC 33.9 G/DL (32.0-36.0); MEAN CORPUSCULAR VOLUME 86 FL (80-99); MEAN PLATELET VOLUME 7.9 FL (6.5-10.1); MONOCYTES % (AUTO) 7.9 % (1.0-10.0); NEUTROPHILS % (AUTO) 66.3 % (45.0-75.0); PLATELET COUNT 256 K/UL (150-450); RED BLOOD COUNT 4.98 M/UL (4.70-6.10); RED CELL DISTRIBUTION WIDTH 10.9 % (11.6-14.8); WHITE BLOOD COUNT 9.9 K/UL (4.8-10.8)
[2016-05-29] MEDS ORDERED: Miralax 17gm pkt ORAL PRN (22:00)
[2016-05-30] VITALS: BP 132/82
--- NOTE | 2016-05-30 03:47 | Consultation ---
DATE OF CONSULTATION: 05/29/2016 CONSULTING PHYSICIAN: Gerry Winston M.D. REQUESTING PHYSICIAN: Jesse Dean M.D. REASON FOR CONSULTATION: Evaluation of pulmonary mass. IDENTIFICATION DATA: Dear Dr. Jesse Dean, The patient is a 35-year-old pleasant male with no past medical history . He is currently on no medications at this time, presents to the ER with 10/10 right-sided chest pain and did not have any shortness of breath. Upon presentation to the ER, he had an elevated blood pressure and denies any other past cardiac history. Cardiology service was obtained. The patient medically with noncardiac chest pain, was placed on heparin drip, but, however, was discontinued. The patient was noted to have pulmonary nodules and Hematology service was consulted for this. In addition, Pulmonary service was consulted as the patient was noted to have monocytosis and therefore must rule out tuberculosis at this time. However, monocytosis has improved through the course of his stay. The patient's PPT is pending as well as sputum-induced serology for AFB. PAST MEDICAL HISTORY: None known. PAST SURGICAL HISTORY: None noted. MEDICATIONS: No new . ALLERGIES: No known drug allergies. SOCIAL HISTORY: No alcohol. Denies illicit drug abuse. FAMILY HISTORY: Noncontributory. REVIEW OF SYSTEMS: Constitutional: No fever, chills, or night sweats. Skin: No rashes, lumps, or itching. HEENT: No headache, hearing or vision changes. Breasts: No lumps, pain, or discharge. Pulmonary: No cough, sputum, or shortness of breath. Cardiovascular: No chest pain, tightness, or palpitations. Gastrointestinal: No nausea, vomiting, or diarrhea. Genitourinary: No dysuria, frequency, or urgency. Musculoskeletal: No joint swelling, muscle pain, or trauma. PHYSICAL EXAMINATION: GENERAL: The patient is in no acute distress. VITAL SIGNS: Temperature is 97.5 degrees Fahrenheit, pulse 71, respiratory rate 12, blood pressure 120/57, and pulse oximetry 97% on room air. PULMONARY: Decreased breath sounds. CARDIOVASCULAR: Regular rhythm. GASTROINTESTINAL: Abdomen is soft, nontender, and nondistended. EXTREMITIES: Edema 1+. LABORATORY AND DIAGNOSTIC DATA: WBC 7.2, hemoglobin 15.8, hematocrit 46, platelet count , monocytes creatinine 0.8. PTT of 36. ASSESSMENT: 1. Monocytosis. Need to rule out tuberculosis. PPT is pending and AFB of sputum is being ruled out, currently negative. 2. Pulmonary nodules. Need to rule out tuberculosis versus coccidioidomycosis versus Aspergillosis and other causes as well. Being seen by Pulmonary team. 3. Chest pain, improved, non-cardiac in nature. Cardiology service has evaluated the patient and found pleurisy. 4. Hypertension. 5. Hyperlipidemia. RECOMMENDATIONS: 1. like lesions must rule out tuberculosis versus an infection versus the less likely possibility of metastasis which was reported on the CT scan. Obtain AFB and PTT as per Pulmonary team and rule out infectious etiology. 2. Monitor counts. 3. Followup on infectious workup. 4. Followup on Cardiology and Hematology recommendations. 5. Peripheral smear has been ordered as well as . 6. DVT prophylaxis with heparin subcutaneous 5000 units. 7. GI prophylaxis with . 8. Continue aspirin. 9. Discussed with staff. Thank you, Dr. Jesse Dean, for this kind referral. Please do not hesitate to contact me with any further questions. Gerry Winston M.D. DR: JESUS MANUEL JOB#: [id number] CC:
[2016-05-30 04:00] VITALS: BP 135/88
[2016-05-30] MEDS: Aspirin Baby 81mg ORAL SCH (08:42)
[2016-05-30] MEDS: Heparin 5000 units/ml inj SUBQ SCH ×2 (08:48→21:00)
[2016-05-30 08:57] VITALS: BP 142/87
[2016-05-30 09:10] LABS: BASOPHILS % (AUTO) 1.1 % (0.0-2.0); EOSINOPHILS % (AUTO) 3.2 % (0.0-3.0); MEAN CORPUSCULAR HEMOGLOBIN 29.3 PG (27.0-31.0); MEAN CORPUSCULAR HGB CONC 34.1 G/DL (32.0-36.0); MEAN CORPUSCULAR VOLUME 86 FL (80-99); MEAN PLATELET VOLUME 8.3 FL (6.5-10.1); MONOCYTES % (AUTO) 7.1 % (1.0-10.0); NEUTROPHILS % (AUTO) 75.6 % (45.0-75.0); PLATELET COUNT 253 K/UL (150-450); RED BLOOD COUNT 5.24 M/UL (4.70-6.10); RED CELL DISTRIBUTION WIDTH 11.1 % (11.6-14.8); WHITE BLOOD COUNT 9.5 K/UL (4.8-10.8)
[2016-05-30 09:22] LABS: ANION GAP 15 (5-15); CALCIUM 9.3 mg/dL (8.6-10.2); CARBON DIOXIDE 26 mEQ/L (20-30); CHLORIDE 98 mEQ/L (98-107); CREATININE 0.7 mg/dL (0.7-1.2); GLOMERULAR FILTRATION RATE > 60 mL/min (>60); HEMOLYSIS 12; POTASSIUM 4.3 mEQ/L (3.4-4.9); SODIUM 139 mEQ/L (135-145)
--- NOTE | 2016-05-30 10:18 | Consultation ---
DATE OF CONSULTATION: NOTE: VERY POOR AUDIO QUALITY INFECTIOUS DISEASE COVERAGE NOTE: REASON FOR CONSULTATION: Positive PPD test with multiple lung cavitary lesions suspicious for pulmonary TB and recommendation for TB treatment. REQUESTING PHYSICIAN: Jesse Dean M.D. HISTORY OF PRESENT ILLNESS: The patient is a 35-year-old male who presented to [facility] on 05/24/2016 with sudden onset of right side chest pain, lasted for almost two hours, 10/10, no associated cough or shortness of breath, nausea, vomiting, or diaphoresis. The patient received aspirin via paramedics with mild improvement. He had extensive cardiac workup during the hospitalization, did not reveal any cardiac source. CT scan and angio of the chest to rule out PE showed multiple cavitary lung lesions concerning for mycobacterium infection and no evidence of PE. The patient was placed on respiratory isolation. Three sputum AFB smear was sent and I was asked for to see this patient by Dr. Dean since his PPD test was read as positive today by the nursing staff and the director distribution. PAST MEDICAL HISTORY: Significant for hypertension. MEDICATIONS: He is on aspirin, fish oil, Protonix, MiraLAX, Restoril, heparin, Tylenol, DuoNeb, morphine, Zofran, and nitroglycerin. ALLERGIES: He has no known drug allergy. SOCIAL HISTORY: Denies using any drugs, tobacco, or alcohol. FAMILY HISTORY: Negative for TB or malignancy. REVIEW OF SYSTEMS: A 12 point of system reviewed were all negative apart from the one I mentioned above. PHYSICAL EXAMINATION: VITAL SIGNS: Temperature 97.5 degrees, pulse 98, respirations 18, blood pressure 134/87, and pulse oximetry 95% on room air. GENERAL: The patient is a middle-aged male, up in bed, awake, alert, not in distress. HEENT: Normocephalic and atraumatic. Pupils both reactive to light. Moist oral mucosa. No exudate. NECK: Supple. No lymphadenopathy. CARDIOVASCULAR: Regular rate and rhythm. No murmur. LUNGS: He has diminished breathing sounds on both lung sides. No wheezing or rhonchi. ABDOMEN: Soft, nontender, and nondistended. Positive bowel sounds. No hepatosplenomegaly. EXTREMITIES: No edema. No cyanosis. LABORATORY AND DIAGNOSTIC DATA: Labs today showed white count of 11.2, hemoglobin 15.8, hematocrit 46.2, and platelet count 284,000. BUN 8 and creatinine 0.8. Toxicology screening was positive for opiates. Serology testing for fungals are all pending and TB T-spot test also pending. HIV is pending. Microbiology, he has two AFB smear, both negative so far. Blood culture x2 is negative so far. Imaging, chest CT angiogram showed negative evidence of acute pulmonary embolus or vascular pathology, multiple mass-like region with central cavitation suspicious for disseminated inflammatory foci, possibly mycobacterium infection, scattered area of pulmonary parenchymal ground-glass opacity nonspecific, which are present, area of parenchymal crowding or atelectasis, areas of inflammation or mild edema. Large fatty liver with areas of focal sparing of fatty changes noted, 3 cm right adrenal myelolipoma. Echocardiogram did not show any evidence of valvular vegetations. ASSESSMENT AND PLAN: 1. Cavitary lung disease, rule out mycobacterium infection versus fungal infection versus metastasis with malignant process. I agree with isolation for tuberculosis until further culture and testing is done. Await sputum culture and T-spot test and fungal serology. We will screen him for human immunodeficiency virus with human immunodeficiency virus antibody test. We will add screening for coccidio and aspergillosis. 2. Pleurisy with chest pain, suspect due to cavitary lung disease. Cardiac workup so far negative. Continue management as per Cardiology. Erin Navarrete M.D. DR: Tigist JOB#: [id number] CC: BUTCH
[2016-05-30 11:31] VITALS: BP 128/78
--- NOTE | 2016-05-30 13:47 | Pulmonology Progress Note ---
Assessment/Plan Assessment/Plan ASSESSMENT cavitary lung disease r/o TB pleurisy / pleuritic chest pain HTN mixed hyperlipidemia positive PPD PLAN OF CARE MS floor respiratory/airborne isolation O2 HHN prn CTA thorax - Multiple masslike lesions with central cavitation,c While possibly on the basis of multifocal cavitary metastases, given patient's age suspect that these represent disseminated inflammatory foci, possibly mycobacterial infection. sputum AFB x 3 ( 2 negative) PPD positive ID consult noted CRP elevated, ESR elevated initial monocytosis highly suggestive of possibility of TB infection, currently monocytes WNL fungal serology, TB serology, M.tuberculosis by PCR T spot -all pending serial troponin x [address] negative, [address] changes, cardio ruled out for ACS ECHO with preserved EF 65% and RVSP of 26 per cardio - chest pain noncardiac, no further cardiac w/up is needed chest pain likely pleuritic, resolved lipid panel with elevated LDL and TG, on statin, add fish oil educated on low fat low cholesterol diet monitor BP, currently stable DVT, GI prophylaxis pain management case discussed and evaluated by supervising physician transfer to MS floor Subjective Allergies: Coded Allergies: No Known Allergies (Unverified , 05/24/16) Subjective denies CP, SOB, on RA sat stable afebrile, no leucocytosis PPD -positive Objective Last 24 Hour Vital Signs Date Time Temp Pulse Resp B/P Pulse Ox O2 Delivery O2 Flow Rate FiO2 05/30/16 11:31 97.6 89 19 128/78 96 Room Air 05/30/16 08:57 97.9 103 18 142/87 96 Room Air 05/30/16 06:40 101 18 Room Air 05/30/16 04:00 98.2 90 18 135/88 98 Room Air 05/30/16 00:00 98.1 92 18 132/82 98 Room Air 05/29/16 19:30 95 20 Room Air 21 05/29/16 19:00 98.1 88 20 137/87 95 Room Air 05/29/16 16:00 97.7 96 20 136/88 95 Room Air 05/29/16 14:50 97.5 98 18 134/87 95 Room Air Intake and Output 05/29/16 05/30/16 19:00 07:00 Intake Total 800 ml 600 ml Balance 800 ml 600 ml Intake Oral 800 ml 600 ml # Voids 4 4 Objective General Appearance: WD/WN, no acute distress HEENT: normocephalic, atraumatic, anicteric, mucous membranes moist, PERRL Respiratory/Chest: chest wall non-tender, lungs clear - with moderate air intake , no respiratory distress, no accessory muscle use Cardiovascular: normal rate, regular rhythm Abdomen: soft, non tender, non distended Extremities: no edema 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, no motor/sensory deficits, alert, oriented x 3, responsive Musculoskeletal: normal muscle bulk Laboratory Tests 05/29/16 18:30: White Blood Count 9.9, Red Blood Count 4.98, Hemoglobin 14.5, Hematocrit 42.7, Mean Corpuscular Volume 86, Mean Corpuscular Hemoglobin 29.1, Mean Corpuscular Hemoglobin Concent 33.9, Red Cell Distribution Width 10.9L, Platelet Count 256, Mean Platelet Volume 7.9, Neutrophils (%) (Auto) 66.3, Lymphocytes (%) (Auto) 20.6, Monocytes (%) (Auto) 7.9, Eosinophils (%) (Auto) 3.2H, Basophils (%) (Auto ) 2.0 05/30/16 08:20: White Blood Count 9.5, Red Blood Count 5.24, Hemoglobin 15.3, Hematocrit 45.0, Mean Corpuscular Volume 86, Mean Corpuscular Hemoglobin 29.3, Mean Corpuscular Hemoglobin Concent 34.1, Red Cell Distribution Width 11.1L, Platelet Count 253, Mean Platelet Volume 8.3, Neutrophils (%) (Auto) 75.6H, Lymphocytes (%) (Auto) 13.0L, Monocytes (%) (Auto) 7.1, Eosinophils (%) (Auto) 3.2H, Basophils (%) ( Auto) 1.1, Sodium Level 139, Potassium Level 4.3, Chloride Level 98, Carbon Dioxide Level 26, Anion Gap 15, Blood Urea Nitrogen 9, Creatinine 0.7, Estimat Glomerular Filtration Rate > 60, Glucose Level 152H, Calcium Level 9.3, Coccidioides Antibody (Comp Fix) [Pending], HIV (1&2) Antibody Rapid Negative, Aspergillus flavus Antibody [Pending], Aspergillus fumigatus Antibody [Pending] , Aspergillus niger Antibody [Pending] Current Medications Medications (Trade) Dose Ordered Sig/Keila Route PRN Reason Start Time Stop Time Status Last Admin Dose Admin Acetaminophen (Tylenol) 650 mg Q4H PRN ORAL FEVER 05/29/16 18:00 06/28/16 17:59 Albuterol/ Ipratropium (DuoNeb 0.5-3(2.5)mg/3ml) 3 ml Q4H PRN HHN Shortness of Breath 05/29/16 18:00 06/03/16 17:59 Aspirin (ASA) 162 mg DAILY ORAL 05/30/16 09:00 06/29/16 08:59 05/30/16 08:42 Fish Oil (Fish Oil) 1,000 mg DAILY ORAL 05/30/16 09:00 06/29/16 08:59 05/30/16 08:42 Heparin Sodium (Porcine) (Heparin 5000 units/ml) 5,000 units EVERY 12 HOURS SUBQ 05/29/16 21:00 06/28/16 20:59 05/30/16 08:48 Morphine Sulfate (Morphine Sulfate) 2 mg Q4H PRN IVP severe Pain (Pain Scale 7-10) 05/29/16 18:00 06/05/16 17:59 Nitroglycerin (Ntg) 0.4 mg Q5M x 3 doses PRN SL Prn Chest Pain 05/29/16 14:45 06/28/16 14:44 Ondansetron HCl (Zofran) 4 mg Q6H PRN IVP Nausea & Vomiting 05/29/16 16:00 06/28/16 15:59 Pantoprazole (Protonix) 40 mg ACBREAKFAST ORAL 05/30/16 06:30 06/29/16 06:29 Polyethylene Glycol (Miralax) 17 gm DAILYPRN PRN ORAL Constipation 05/29/16 22:00 06/28/16 21:59 Temazepam (Restoril) 15 mg HSPRN PRN ORAL Insomnia 05/29/16 22:00 06/05/16 21:59 Garth (Yanci Stiles NP May 30, 2016 13:47
--- NOTE | 2016-05-30 15:13 | General Progress Note ---
Assessment/Plan Problem List: (1) Chest pain ICD Codes: R07.9 - Chest pain, unspecified SNOMED: 83204812 Qualifiers: Qualified Codes: R07.9 - Chest pain, unspecified (2) Pleurisy ICD Codes: R09.1 - Pleurisy SNOMED: 343849798, [id number] Status: progressing Assessment/Plan positive ppd dr casillas and dr potter are on the case for this for now on isolation abx per id Subjective ROS Limited/Unobtainable: Yes Allergies: Coded Allergies: No Known Allergies (Unverified , 05/24/16) Objective Last 24 Hour Vital Signs Date Time Temp Pulse Resp B/P Pulse Ox O2 Delivery O2 Flow Rate FiO2 05/30/16 11:31 97.6 89 19 128/78 96 Room Air 05/30/16 08:57 97.9 103 18 142/87 96 Room Air 05/30/16 06:40 101 18 Room Air 21 05/30/16 04:00 98.2 90 18 135/88 98 Room Air 05/30/16 00:00 98.1 92 18 132/82 98 Room Air 05/29/16 19:30 95 20 Room Air 21 05/29/16 19:00 98.1 88 20 137/87 95 Room Air 05/29/16 16:00 97.7 96 20 136/88 95 Room Air Intake and Output 05/29/16 05/30/16 19:00 07:00 Intake Total 800 ml 600 ml Balance 800 ml 600 ml Intake Oral 800 ml 600 ml # Voids 4 4 Laboratory Tests 05/29/16 18:30: White Blood Count 9.9, Red Blood Count 4.98, Hemoglobin 14.5, Hematocrit 42.7, Mean Corpuscular Volume 86, Mean Corpuscular Hemoglobin 29.1, Mean Corpuscular Hemoglobin Concent 33.9, Red Cell Distribution Width 10.9L, Platelet Count 256, Mean Platelet Volume 7.9, Neutrophils (%) (Auto) 66.3, Lymphocytes (%) (Auto) 20.6, Monocytes (%) (Auto) 7.9, Eosinophils (%) (Auto) 3.2H, Basophils (%) (Auto ) 2.0 05/30/16 08:20: White Blood Count 9.5, Red Blood Count 5.24, Hemoglobin 15.3, Hematocrit 45.0, Mean Corpuscular Volume 86, Mean Corpuscular Hemoglobin 29.3, Mean Corpuscular Hemoglobin Concent 34.1, Red Cell Distribution Width 11.1L, Platelet Count 253, Mean Platelet Volume 8.3, Neutrophils (%) (Auto) 75.6H, Lymphocytes (%) (Auto) 13.0L, Monocytes (%) (Auto) 7.1, Eosinophils (%) (Auto) 3.2H, Basophils (%) ( Auto) 1.1, Sodium Level 139, Potassium Level 4.3, Chloride Level 98, Carbon Dioxide Level 26, Anion Gap 15, Blood Urea Nitrogen 9, Creatinine 0.7, Estimat Glomerular Filtration Rate > 60, Glucose Level 152H, Calcium Level 9.3, Coccidioides Antibody (Comp Fix) [Pending], HIV (1&2) Antibody Rapid Negative, Aspergillus flavus Antibody [Pending], Aspergillus fumigatus Antibody [Pending] , Aspergillus niger Antibody [Pending] Height (Feet): 5 Height (Inches): 9.00 Weight (Pounds): 180 EENT: PERRL/EOMI Cardiovascular: normal peripheral pulses Respiratory/Chest: lungs clear Jesse Dean MD May 30, 2016 15:13
[2016-05-30 16:00] VITALS: BP 145/89
--- NOTE | 2016-05-30 17:04 | General Progress Note ---
Assessment/Plan Assessment/Plan ASSESSMENT: 1. Monocytosis. Need to rule out tuberculosis. PPD+ and AFB of sputum is being ruled out, currently negative. Monocytosis better 2. Pulmonary nodules. Need to rule out tuberculosis versus coccidioidomycosis versus Aspergillosis and other causes as well. Being seen by Pulmonary team. 3. Chest pain, improved, non-cardiac in nature. Cardiology service has evaluated the patient and found pleurisy. 4. Hypertension. 5. Hyperlipidemia. RECOMMENDATIONS: 1. R/o TB v other infectious process 2. Monitor counts. 3. Followup on infectious workup. 4. Followup on Cardiology and ID recs. 5. Peripheral smear has been ordered 6. DVT prophylaxis with heparin subcutaneous 5000 units. 7. GI prophylaxis with PPI. 8. Continue aspirin. 9. Discussed with staff. Thank you, Gerry Winston MD Subjective Constitutional: Reports: no symptoms HEENT: Reports: no symptoms Cardiovascular: Reports: no symptoms Respiratory: Reports: no symptoms Gastrointestinal/Abdominal: Reports: poor appetite Genitourinary: Reports: no symptoms Neurologic/Psychiatric: Reports: no symptoms Endocrine: Reports: no symptoms Hematologic/Lymphatic: Reports: anemia Allergies: Coded Allergies: No Known Allergies (Unverified , 05/24/16) Subjective stable, bedside Objective Last 24 Hour Vital Signs Date Time Temp Pulse Resp B/P Pulse Ox O2 Delivery O2 Flow Rate FiO2 05/30/16 11:31 97.6 89 19 128/78 96 Room Air 05/30/16 08:57 97.9 103 18 142/87 96 Room Air 05/30/16 06:40 101 18 Room Air 05/30/16 04:00 98.2 90 18 135/88 98 Room Air 05/30/16 00:00 98.1 92 18 132/82 98 Room Air 05/29/16 19:30 95 20 Room Air 21 05/29/16 19:00 98.1 88 20 137/87 95 Room Air Intake and Output 05/29/16 05/30/16 19:00 07:00 Intake Total 800 ml 600 ml Balance 800 ml 600 ml Intake Oral 800 ml 600 ml # Voids 4 4 Laboratory Tests 05/29/16 18:30: White Blood Count 9.9, Red Blood Count 4.98, Hemoglobin 14.5, Hematocrit 42.7, Mean Corpuscular Volume 86, Mean Corpuscular Hemoglobin 29.1, Mean Corpuscular Hemoglobin Concent 33.9, Red Cell Distribution Width 10.9L, Platelet Count 256, Mean Platelet Volume 7.9, Neutrophils (%) (Auto) 66.3, Lymphocytes (%) (Auto) 20.6, Monocytes (%) (Auto) 7.9, Eosinophils (%) (Auto) 3.2H, Basophils (%) (Auto ) 2.0 05/30/16 08:20: White Blood Count 9.5, Red Blood Count 5.24, Hemoglobin 15.3, Hematocrit 45.0, Mean Corpuscular Volume 86, Mean Corpuscular Hemoglobin 29.3, Mean Corpuscular Hemoglobin Concent 34.1, Red Cell Distribution Width 11.1L, Platelet Count 253, Mean Platelet Volume 8.3, Neutrophils (%) (Auto) 75.6H, Lymphocytes (%) (Auto) 13.0L, Monocytes (%) (Auto) 7.1, Eosinophils (%) (Auto) 3.2H, Basophils (%) ( Auto) 1.1, Sodium Level 139, Potassium Level 4.3, Chloride Level 98, Carbon Dioxide Level 26, Anion Gap 15, Blood Urea Nitrogen 9, Creatinine 0.7, Estimat Glomerular Filtration Rate > 60, Glucose Level 152H, Calcium Level 9.3, Coccidioides Antibody (Comp Fix) [Pending], HIV (1&2) Antibody Rapid Negative, Aspergillus flavus Antibody [Pending], Aspergillus fumigatus Antibody [Pending] , Aspergillus niger Antibody [Pending] Height (Feet): 5 Height (Inches): 9.00 Weight (Pounds): 180 General Appearance: WD/WN, no apparent distress EENT: TMs normal Neck: non-tender Cardiovascular: normal rate Respiratory/Chest: normal breath sounds Abdomen: soft Extremities: non-tender Edema: 1+ Leg (L), 1+ Leg (R) Edema: mild edema Neurologic: alert Skin: warm/dry Gerry Winston May 30, 2016 17:04
--- NOTE | 2016-05-30 17:51 | Cardiac Electrophysiology PN ---
Assessment/Plan Assessment/Plan 1. Tachycardia due to sinus tachycardia with no evidence of atrial fibrillation or any other cardiac arrhythmia, this is likely due to patient's underlying pulmonary process. 2. Right upper chest pain due to Cavitary lung disease, rule out mycobacterium infection versus fungal infection versus metastasis with malignant process. The patient is in isolation for cavitary lesion on chest CT. ID following. HEIDI RN. Subjective Subjective Still in respirator isolation. No chest pain or SOB. Objective Last 24 Hour Vital Signs Date Time Temp Pulse Resp B/P Pulse Ox O2 Delivery O2 Flow Rate FiO2 05/30/16 11:31 97.6 89 19 128/78 96 Room Air 05/30/16 08:57 97.9 103 18 142/87 96 Room Air 05/30/16 06:40 101 18 Room Air 21 05/30/16 04:00 98.2 90 18 135/88 98 Room Air 05/30/16 00:00 98.1 92 18 132/82 98 Room Air 05/29/16 19:30 95 20 Room Air 21 05/29/16 19:00 98.1 88 20 137/87 95 Room Air Intake and Output 05/29/16 05/30/16 19:00 07:00 Intake Total 800 ml 600 ml Balance 800 ml 600 ml Intake Oral 800 ml 600 ml # Voids 4 4 Laboratory Tests Test 05/29/16 18:30 05/30/16 08:20 White Blood Count 9.9 K/UL (4.8-10.8) 9.5 K/UL (4.8-10.8) Red Blood Count 4.98 M/UL (4.70-6.10) 5.24 M/UL (4.70-6.10) Hemoglobin 14.5 G/DL (14.2-18.0) 15.3 G/DL (14.2-18.0) Hematocrit 42.7 % (42.0-52.0) 45.0 % (42.0-52.0) Mean Corpuscular Volume 86 FL (80-99) 86 FL (80-99) Mean Corpuscular Hemoglobin 29.1 PG (27.0-31.0) 29.3 PG (27.0-31.0) Mean Corpuscular Hemoglobin Concent 33.9 G/DL (32.0-36.0) 34.1 G/DL (32.0-36.0) Red Cell Distribution Width 10.9 % (11.6-14.8) L 11.1 % (11.6-14.8) L Platelet Count 256 K/UL (150-450) 253 K/UL (150-450) Mean Platelet Volume 7.9 FL (6.5-10.1) 8.3 FL (6.5-10.1) Neutrophils (%) (Auto) 66.3 % (45.0-75.0) 75.6 % (45.0-75.0) H Lymphocytes (%) (Auto) 20.6 % (20.0-45.0) 13.0 % (20.0-45.0) L Monocytes (%) (Auto) 7.9 % (1.0-10.0) 7.1 % (1.0-10.0) Eosinophils (%) (Auto) 3.2 % (0.0-3.0) H 3.2 % (0.0-3.0) H Basophils (%) (Auto) 2.0 % (0.0-2.0) 1.1 % (0.0-2.0) Sodium Level 139 mEQ/L (135-145) Potassium Level 4.3 mEQ/L (3.4-4.9) Chloride Level 98 mEQ/L (98-107) Carbon Dioxide Level 26 mEQ/L (20-30) Anion Gap 15 (5-15) Blood Urea Nitrogen 9 mg/dL (7-23) Creatinine 0.7 mg/dL (0.7-1.2) Estimat Glomerular Filtration Rate > 60 mL/min (>60) Glucose Level 152 mg/dL (74-106) H Calcium Level 9.3 mg/dL (8.6-10.2) Coccidioides Antibody (Comp Fix) Pending HIV (1&2) Antibody Rapid Negative (NEGATIVE) Aspergillus flavus Antibody Pending Aspergillus fumigatus Antibody Pending Aspergillus niger Antibody Pending Objective HEAD AND NECK: No JVD. LUNGS: Decreased breath sounds on the right side. CARDIOVASCULAR: Regular S1 and S2 with no gallop or murmur. Tachycardic. ABDOMEN: Soft and nontender. EXTREMITIES: No pitting edema. JOHN PENA May 30, 2016 17:51
--- NOTE | 2016-05-30 18:21 | Infectious Diseases Prog Note ---
Assessment/Plan Problems: (1) Cavitary lung disease Assessment & Plan: mycobacterium, VS fungal VS malignant process with mets, continue respiratory isolation until TB is ruled out , await sputum AFB smears , and fungal serology, coccidiomycosis, aspergillosis serology are pending , HIV test is negative , await T spot result, Echo didn't show any valvular vegetation to explain septic emboli , and blood culture remained negative . (2) Pleurisy Assessment & Plan: due to the above, continue pain management as per primary Subjective Constitutional: Reports: no symptoms HEENT: Reports: no symptoms Respiratory: Reports: no symptoms Breasts: Reports: no symptoms Cardiovascular: Reports: no symptoms Gastrointestinal/Abdominal: Reports: no symptoms Genitourinary: Reports: no symptoms Neurologic: Reports: no symptoms Psychiatric: Reports: no symptoms Skin: Reports: no symptoms Endocrine: Reports: no symptoms Allergies: Coded Allergies: No Known Allergies (Unverified , 05/24/16) Subjective he was doing well asymptomatic Objective Vital Signs Last 24 Hour Vital Signs Date Time Temp Pulse Resp B/P Pulse Ox O2 Delivery O2 Flow Rate FiO2 05/30/16 16:00 98.2 91 19 145/89 94 Room Air 05/30/16 11:31 97.6 89 19 128/78 96 Room Air 05/30/16 08:57 97.9 103 18 142/87 96 Room Air 05/30/16 06:40 101 18 Room Air 05/30/16 04:00 98.2 90 18 135/88 98 Room Air 05/30/16 00:00 98.1 92 18 132/82 98 Room Air 05/29/16 19:30 95 20 Room Air 21 05/29/16 19:00 98.1 88 20 137/87 95 Room Air Height (Feet): 5 Height (Inches): 9.00 Weight (Pounds): 180 General Appearance: WD/WN, no acute distress HEENT: normocephalic, atraumatic, anicteric, mucous membranes moist Respiratory/Chest: chest wall non-tender, lungs clear, normal breath sounds, no respiratory distress, no accessory muscle use Cardiovascular: normal peripheral pulses, normal rate, regular rhythm, no gallop/murmur Abdomen: normal bowel sounds, soft, non tender, no organomegaly, non distended , no mass Extremities: no cyanosis, no clubbing Skin: no rash, no lesions, no ulcers Laboratory Tests Test 05/29/16 18:30 05/30/16 08:20 White Blood Count 9.9 K/UL (4.8-10.8) 9.5 K/UL (4.8-10.8) Red Blood Count 4.98 M/UL (4.70-6.10) 5.24 M/UL (4.70-6.10) Hemoglobin 14.5 G/DL (14.2-18.0) 15.3 G/DL (14.2-18.0) Hematocrit 42.7 % (42.0-52.0) 45.0 % (42.0-52.0) Mean Corpuscular Volume 86 FL (80-99) 86 FL (80-99) Mean Corpuscular Hemoglobin 29.1 PG (27.0-31.0) 29.3 PG (27.0-31.0) Mean Corpuscular Hemoglobin Concent 33.9 G/DL (32.0-36.0) 34.1 G/DL (32.0-36.0) Red Cell Distribution Width 10.9 % (11.6-14.8) L 11.1 % (11.6-14.8) L Platelet Count 256 K/UL (150-450) 253 K/UL (150-450) Mean Platelet Volume 7.9 FL (6.5-10.1) 8.3 FL (6.5-10.1) Neutrophils (%) (Auto) 66.3 % (45.0-75.0) 75.6 % (45.0-75.0) H Lymphocytes (%) (Auto) 20.6 % (20.0-45.0) 13.0 % (20.0-45.0) L Monocytes (%) (Auto) 7.9 % (1.0-10.0) 7.1 % (1.0-10.0) Eosinophils (%) (Auto) 3.2 % (0.0-3.0) H 3.2 % (0.0-3.0) H Basophils (%) (Auto) 2.0 % (0.0-2.0) 1.1 % (0.0-2.0) Sodium Level 139 mEQ/L (135-145) Potassium Level 4.3 mEQ/L (3.4-4.9) Chloride Level 98 mEQ/L (98-107) Carbon Dioxide Level 26 mEQ/L (20-30) Anion Gap 15 (5-15) Blood Urea Nitrogen 9 mg/dL (7-23) Creatinine 0.7 mg/dL (0.7-1.2) Estimat Glomerular Filtration Rate > 60 mL/min (>60) Glucose Level 152 mg/dL (74-106) H Calcium Level 9.3 mg/dL (8.6-10.2) Coccidioides Antibody (Comp Fix) Pending HIV (1&2) Antibody Rapid Negative (NEGATIVE) Aspergillus flavus Antibody Pending Aspergillus fumigatus Antibody Pending Aspergillus niger Antibody Pending Current Medications Medications (Trade) Dose Ordered Sig/Keila Route PRN Reason Start Time Stop Time Status Last Admin Dose Admin Acetaminophen (Tylenol) 650 mg Q4H PRN ORAL FEVER 05/29/16 18:00 06/28/16 17:59 Albuterol/ Ipratropium (DuoNeb 0.5-3(2.5)mg/3ml) 3 ml Q4H PRN HHN Shortness of Breath 05/29/16 18:00 06/03/16 17:59 Aspirin (ASA) 162 mg DAILY ORAL 05/30/16 09:00 06/29/16 08:59 05/30/16 08:42 Fish Oil (Fish Oil) 1,000 mg DAILY ORAL 05/30/16 09:00 06/29/16 08:59 05/30/16 08:42 Heparin Sodium (Porcine) (Heparin 5000 units/ml) 5,000 units EVERY 12 HOURS SUBQ 05/29/16 21:00 06/28/16 20:59 05/30/16 08:48 Morphine Sulfate (Morphine Sulfate) 2 mg Q4H PRN IVP severe Pain (Pain Scale 7-10) 05/29/16 18:00 06/05/16 17:59 Nitroglycerin (Ntg) 0.4 mg Q5M x 3 doses PRN SL Prn Chest Pain 05/29/16 14:45 06/28/16 14:44 Ondansetron HCl (Zofran) 4 mg Q6H PRN IVP Nausea & Vomiting 05/29/16 16:00 1/24/17 15:59 Pantoprazole (Protonix) 40 mg ACBREAKFAST ORAL 05/30/16 06:30 06/29/16 06:29 Polyethylene Glycol (Miralax) 17 gm DAILYPRN PRN ORAL Constipation 05/29/16 22:00 06/28/16 21:59 Temazepam (Restoril) 15 mg HSPRN PRN ORAL Insomnia 05/29/16 22:00 06/05/16 21:59 Erin Navarrete M.D. May 30, 2016 18:21
[2016-05-30 20:00] VITALS: BP 112/80
[2016-05-31 00:39] VITALS: BP 115/75
[2016-05-31 04:12] VITALS: BP 119/68
[2016-05-31 08:20] VITALS: BP 143/86
[2016-05-31] MEDS: Aspirin Baby 81mg ORAL SCH (08:21)
[2016-05-31] MEDS: Heparin 5000 units/ml inj SUBQ SCH ×2 (08:24→20:26)
[2016-05-31 11:32] VITALS: BP 126/80
--- NOTE | 2016-05-31 14:00 | General Progress Note ---
Assessment/Plan Assessment/Plan ASSESSMENT: 1. Monocytosis. Need to rule out tuberculosis. PPD+ and AFB of sputum is being ruled out, currently negative. Monocytosis better 2. Pulmonary nodules. Need to rule out tuberculosis versus coccidioidomycosis versus Aspergillosis and other causes as well. Being seen by Pulmonary team. 3. Chest pain, improved, non-cardiac in nature. Cardiology followup 4. Hypertension. 5. Hyperlipidemia. RECOMMENDATIONS: 1. R/o TB v other infectious process 2. Monitor counts. 3. Followup on infectious workup. 4. Followup on Cardiology and ID recs. 5. Peripheral smear has been ordered 6. DVT prophylaxis with heparin sq. 7. GI prophylaxis with PPI. 8. Continue aspirin. 9. Discussed with staff. Thank you, Gerry Winston MD Subjective Constitutional: Reports: no symptoms HEENT: Reports: no symptoms Cardiovascular: Reports: chest pain Respiratory: Reports: no symptoms Gastrointestinal/Abdominal: Reports: poor appetite, poor fluid intake Genitourinary: Reports: no symptoms Neurologic/Psychiatric: Reports: no symptoms Endocrine: Reports: no symptoms Hematologic/Lymphatic: Reports: anemia Allergies: Coded Allergies: No Known Allergies (Unverified , 05/24/16) Subjective stable, at bedside Objective Last 24 Hour Vital Signs Date Time Temp Pulse Resp B/P Pulse Ox O2 Delivery O2 Flow Rate FiO2 05/31/16 11:32 97.5 90 19 126/80 97 Room Air 05/31/16 08:20 97.0 106 18 143/86 98 Room Air 05/31/16 07:35 82 18 Room Air 21 05/31/16 04:12 98.5 82 21 119/68 95 Room Air 05/31/16 00:39 98.1 82 20 115/75 97 Room Air 05/30/16 20:13 91 18 Room Air 21 05/30/16 20:00 98.6 92 19 112/80 100 Room Air 05/30/16 16:00 98.2 91 19 145/89 94 Room Air Intake and Output 05/30/16 05/31/16 19:00 07:00 Intake Total 810 ml 380 ml Balance 810 ml 380 ml Intake Oral 810 ml 380 ml # Voids 3 5 # Bowel Movements 1 Height (Feet): 5 Height (Inches): 9.00 Weight (Pounds): 180 General Appearance: no apparent distress EENT: pharynx normal Neck: normal alignment Cardiovascular: normal rate Respiratory/Chest: lungs clear Abdomen: normal bowel sounds Pelvis: normal rectal exam Edema: 1+ Leg (L), 1+ Leg (R) Edema: mild edema Neurologic: alert Skin: warm/dry Gerry Winston May 31, 2016 14:00
[2016-05-31 14:17] LABS: NIL (NEG) CONTROL SPOT COUNT 0 (0-9); PANEL A SPOT COUNT 0; PANEL B SPOT COUNT 0; POSITIVE CONTROL SPOT COUNT > 20; T SPOT TB NEGATIVE
[2016-05-31 14:26] LABS: CRYPTOCOCCAL ANTIGEN SERUM Negative (Negative)
--- NOTE | 2016-05-31 15:07 | General Progress Note ---
Assessment/Plan Problem List: (1) Chest pain ICD Codes: R07.9 - Chest pain, unspecified SNOMED: [id number] Qualifiers: Qualified Codes: R07.9 - Chest pain, unspecified (2) Pleurisy ICD Codes: R09.1 - Pleurisy SNOMED: 242575883, [id number] Status: progressing Assessment/Plan positive ppd dr casillas and dr potter are on the case for this for now on isolation abx per id afebrile check xray no cough Subjective ROS Limited/Unobtainable: Yes Allergies: Coded Allergies: No Known Allergies (Unverified , 05/24/16) Objective Last 24 Hour Vital Signs Date Time Temp Pulse Resp B/P Pulse Ox O2 Delivery O2 Flow Rate FiO2 05/31/16 11:32 97.5 90 19 126/80 97 Room Air 05/31/16 08:20 97.0 106 18 143/86 98 Room Air 05/31/16 07:35 82 18 Room Air 21 05/31/16 04:12 98.5 82 21 119/68 95 Room Air 05/31/16 00:39 98.1 82 20 115/75 97 Room Air 05/30/16 20:13 91 18 Room Air 21 05/30/16 20:00 98.6 92 19 112/80 100 Room Air 05/30/16 16:00 98.2 91 19 145/89 94 Room Air Intake and Output 05/30/16 05/31/16 19:00 07:00 Intake Total 810 ml 380 ml Balance 810 ml 380 ml Intake Oral 810 ml 380 ml # Voids 3 5 # Bowel Movements 1 Height (Feet): 5 Height (Inches): 9.00 Weight (Pounds): 180 EENT: PERRL/EOMI Neck: supple Cardiovascular: normal rate Jesse Dean MD May 31, 2016 15:07
[2016-05-31 16:00] VITALS: BP 119/64
--- NOTE | 2016-05-31 16:18 | Pulmonology Progress Note ---
Assessment/Plan Problems: (1) Cavitary lung disease (2) Chest pain (3) Pleurisy Assessment/Plan ppd positive sputum pending septic emboli is not likely. TB is a real possibility because of Monocytosis Subjective ROS Limited/Unobtainable: No Constitutional: Reports: no symptoms HEENT: Repors: no symptoms Respiratory: Reports: no symptoms Cardiovascular: Reports: no symptoms Allergies: Coded Allergies: No Known Allergies (Unverified , 05/24/16) Objective Last 24 Hour Vital Signs Date Time Temp Pulse Resp B/P Pulse Ox O2 Delivery O2 Flow Rate FiO2 05/31/16 11:32 97.5 90 19 126/80 97 Room Air 05/31/16 08:20 97.0 106 18 143/86 98 Room Air 05/31/16 07:35 82 18 Room Air 21 05/31/16 04:12 98.5 82 21 119/68 95 Room Air 05/31/16 00:39 98.1 82 20 115/75 97 Room Air 05/30/16 20:13 91 18 Room Air 21 05/30/16 20:00 98.6 92 19 112/80 100 Room Air Intake and Output 05/30/16 05/31/16 19:00 07:00 Intake Total 810 ml 380 ml Balance 810 ml 380 ml Intake Oral 810 ml 380 ml # Voids 3 5 # Bowel Movements 1 General Appearance: WD/WN HEENT: normocephalic, atraumatic Respiratory/Chest: chest wall non-tender, lungs clear Cardiovascular: normal peripheral pulses, normal rate Abdomen: normal bowel sounds, soft, non tender Extremities: no cyanosis Skin: no lesions Current Medications Medications (Trade) Dose Ordered Sig/Keila Route PRN Reason Start Time Stop Time Status Last Admin Dose Admin Acetaminophen (Tylenol) 650 mg Q4H PRN ORAL FEVER 05/29/16 18:00 06/28/16 17:59 Albuterol/ Ipratropium (DuoNeb 0.5-3(2.5)mg/3ml) 3 ml Q4H PRN HHN Shortness of Breath 05/29/16 18:00 06/03/16 17:59 Aspirin (ASA) 162 mg DAILY ORAL 05/30/16 09:00 06/29/16 08:59 05/31/16 08:21 Fish Oil (Fish Oil) 1,000 mg DAILY ORAL 05/30/16 09:00 06/29/16 08:59 05/31/16 08:21 Heparin Sodium (Porcine) (Heparin 5000 units/ml) 5,000 units EVERY 12 HOURS SUBQ 05/29/16 21:00 06/28/16 20:59 05/31/16 08:24 Morphine Sulfate (Morphine Sulfate) 2 mg Q4H PRN IVP severe Pain (Pain Scale 7-10) 05/29/16 18:00 06/05/16 17:59 Nitroglycerin (Ntg) 0.4 mg Q5M x 3 doses PRN SL Prn Chest Pain 05/29/16 14:45 06/28/16 14:44 Ondansetron HCl (Zofran) 4 mg Q6H PRN IVP Nausea & Vomiting 05/29/16 16:00 06/28/16 15:59 Pantoprazole (Protonix) 40 mg ACBREAKFAST ORAL 05/30/16 06:30 06/29/16 06:29 05/31/16 05:52 Polyethylene Glycol (Miralax) 17 gm DAILYPRN PRN ORAL Constipation 05/29/16 22:00 06/28/16 21:59 Temazepam (Restoril) 15 mg HSPRN PRN ORAL Insomnia 05/29/16 22:00 06/05/16 21:59 SAGAR CHRIS May 31, 2016 16:18
--- NOTE | 2016-05-31 17:37 | Cardiac Electrophysiology PN ---
Assessment/Plan Assessment/Plan 1. Tachycardia due to sinus tachycardia with no evidence of atrial fibrillation or any other cardiac arrhythmia. Likely due to patient's underlying pulmonary process. 2. Right upper chest pain due to Cavitary lung disease, rule out mycobacterium infection versus fungal infection versus metastasis with malignant process. The patient is in isolation for cavitary lesion on chest CT. ID following.#rd sputum pending. DW RN. Subjective Subjective Still in respiratory isolation. No chest pain or SOB.Having dinner. Objective Last 24 Hour Vital Signs Date Time Temp Pulse Resp B/P Pulse Ox O2 Delivery O2 Flow Rate FiO2 05/31/16 16:00 97.6 74 17 119/64 94 Room Air 05/31/16 11:32 97.5 90 19 126/80 97 Room Air 05/31/16 08:20 97.0 106 18 143/86 98 Room Air 05/31/16 07:35 82 18 Room Air 21 05/31/16 04:12 98.5 82 21 119/68 95 Room Air 05/31/16 00:39 98.1 82 20 115/75 97 Room Air 05/30/16 20:13 91 18 Room Air 21 05/30/16 20:00 98.6 92 19 112/80 100 Room Air Intake and Output 05/30/16 05/31/16 19:00 07:00 Intake Total 810 ml 380 ml Balance 810 ml 380 ml Intake Oral 810 ml 380 ml # Voids 3 5 # Bowel Movements 1 Labs Test 05/29/16 18:30 05/30/16 08:20 White Blood Count 9.9 K/UL (4.8-10.8) 9.5 K/UL (4.8-10.8) Red Blood Count 4.98 M/UL (4.70-6.10) 5.24 M/UL (4.70-6.10) Hemoglobin 14.5 G/DL (14.2-18.0) 15.3 G/DL (14.2-18.0) Hematocrit 42.7 % (42.0-52.0) 45.0 % (42.0-52.0) Mean Corpuscular Volume 86 FL (80-99) 86 FL (80-99) Mean Corpuscular Hemoglobin 29.1 PG (27.0-31.0) 29.3 PG (27.0-31.0) Mean Corpuscular Hemoglobin Concent 33.9 G/DL (32.0-36.0) 34.1 G/DL (32.0-36.0) Red Cell Distribution Width 10.9 % (11.6-14.8) 11.1 % (11.6-14.8) Platelet Count 256 K/UL (150-450) 253 K/UL (150-450) Mean Platelet Volume 7.9 FL (6.5-10.1) 8.3 FL (6.5-10.1) Neutrophils (%) (Auto) 66.3 % (45.0-75.0) 75.6 % (45.0-75.0) Lymphocytes (%) (Auto) 20.6 % (20.0-45.0) 13.0 % (20.0-45.0) Monocytes (%) (Auto) 7.9 % (1.0-10.0) 7.1 % (1.0-10.0) Eosinophils (%) (Auto) 3.2 % (0.0-3.0) 3.2 % (0.0-3.0) Basophils (%) (Auto) 2.0 % (0.0-2.0) 1.1 % (0.0-2.0) Sodium Level 139 mEQ/L (135-145) Potassium Level 4.3 mEQ/L (3.4-4.9) Chloride Level 98 mEQ/L (98-107) Carbon Dioxide Level 26 mEQ/L (20-30) Anion Gap 15 (5-15) Blood Urea Nitrogen 9 mg/dL (7-23) Creatinine 0.7 mg/dL (0.7-1.2) Estimat Glomerular Filtration Rate > 60 mL/min (>60) Glucose Level 152 mg/dL (74-106) Calcium Level 9.3 mg/dL (8.6-10.2) HIV (1&2) Antibody Rapid Negative (NEGATIVE) Objective HEAD AND NECK: No JVD. LUNGS: Decreased breath sounds on the right side. CARDIOVASCULAR: Regular S1 and S2 with no gallop or murmur. Tachycardic. ABDOMEN: Soft and nontender. EXTREMITIES: No pitting edema. JOHN PENA May 31, 2016 17:37
--- NOTE | 2016-05-31 18:24 | Infectious Diseases Prog Note ---
Assessment/Plan Problems: (1) Cavitary lung disease Assessment & Plan: doubt TB with negative smear x 3 and negative PPD test , suspect fungal VS malignant process with mets, may remove from respiratory isolation , await sputum culture , and fungal serology, coccidiomycosis, aspergillosis serology are pending , HIV test is negative , await T spot result , Echo didn't show any valvular vegetation to explain septic emboli , and blood culture remained negative .recommend CT guided biopsy if infectious work up is negative (2) Pleurisy Assessment & Plan: due to the above, continue pain management as per primary Subjective Constitutional: Reports: no symptoms HEENT: Reports: no symptoms Respiratory: Reports: no symptoms Breasts: Reports: no symptoms Cardiovascular: Reports: no symptoms Gastrointestinal/Abdominal: Reports: no symptoms Genitourinary: Reports: no symptoms Neurologic: Reports: no symptoms Psychiatric: Reports: no symptoms Skin: Reports: no symptoms Endocrine: Reports: no symptoms Hematologic: Reports: no symptoms Allergies: Coded Allergies: No Known Allergies (Unverified , 05/24/16) Subjective he was doing ok, denied any fever or chills, no nausea or vomiting Objective Vital Signs Last 24 Hour Vital Signs Date Time Temp Pulse Resp B/P Pulse Ox O2 Delivery O2 Flow Rate FiO2 05/31/16 16:00 97.6 74 17 119/64 94 Room Air 05/31/16 11:32 97.5 90 19 126/80 97 Room Air 05/31/16 08:20 97.0 106 18 143/86 98 Room Air 05/31/16 07:35 82 18 Room Air 05/31/16 04:12 98.5 82 21 119/68 95 Room Air 05/31/16 00:39 98.1 82 20 115/75 97 Room Air 05/30/16 20:13 91 18 Room Air 21 05/30/16 20:00 98.6 92 19 112/80 100 Room Air Height (Feet): 5 Height (Inches): 9.00 Weight (Pounds): 180 General Appearance: WD/WN, no acute distress HEENT: normocephalic, atraumatic, anicteric, mucous membranes moist Respiratory/Chest: chest wall non-tender, lungs clear, normal breath sounds, no respiratory distress, no accessory muscle use Cardiovascular: normal peripheral pulses, normal rate, regular rhythm, no gallop/murmur Abdomen: normal bowel sounds, soft, non tender, no organomegaly, non distended , no mass Extremities: no cyanosis, no clubbing Skin: no rash, no lesions, no ulcers Current Medications Medications (Trade) Dose Ordered Sig/Keila Route PRN Reason Start Time Stop Time Status Last Admin Dose Admin Acetaminophen (Tylenol) 650 mg Q4H PRN ORAL FEVER 05/29/16 18:00 06/28/16 17:59 Albuterol/ Ipratropium (DuoNeb 0.5-3(2.5)mg/3ml) 3 ml Q4H PRN HHN Shortness of Breath 05/29/16 18:00 06/03/16 17:59 Aspirin (ASA) 162 mg DAILY ORAL 05/30/16 09:00 06/29/16 08:59 05/31/16 08:21 Fish Oil (Fish Oil) 1,000 mg DAILY ORAL 05/30/16 09:00 06/29/16 08:59 05/31/16 08:21 Heparin Sodium (Porcine) (Heparin 5000 units/ml) 5,000 units EVERY 12 HOURS SUBQ 05/29/16 21:00 06/28/16 20:59 05/31/16 08:24 Morphine Sulfate (Morphine Sulfate) 2 mg Q4H PRN IVP severe Pain (Pain Scale 7-10) 05/29/16 18:00 06/05/16 17:59 Nitroglycerin (Ntg) 0.4 mg Q5M x 3 doses PRN SL Prn Chest Pain 05/29/16 14:45 06/28/16 14:44 Ondansetron HCl (Zofran) 4 mg Q6H PRN IVP Nausea & Vomiting 05/29/16 16:00 06/28/16 15:59 Pantoprazole (Protonix) 40 mg ACBREAKFAST ORAL 05/30/16 06:30 06/29/16 06:29 05/31/16 05:52 Polyethylene Glycol (Miralax) 17 gm DAILYPRN PRN ORAL Constipation 05/29/16 22:00 06/28/16 21:59 Temazepam (Restoril) 15 mg HSPRN PRN ORAL Insomnia 05/29/16 22:00 06/05/16 21:59 Erin Navarrete M.D. May 31, 2016 18:24
[2016-05-31 20:00] VITALS: BP 136/80
[2016-06-01] VITALS: BP 123/69
[2016-06-01 02:13] LABS: MTB PROCESSING Concentration (.)
[2016-06-01 04:00] VITALS: BP 129/58
[2016-06-01 08:00] VITALS: BP 133/84
[2016-06-01 12:00] VITALS: BP 117/73
[2016-06-01] MEDS: Aspirin Baby 81mg ORAL SCH (13:00)
[2016-06-01] MEDS: Heparin 5000 units/ml inj SUBQ SCH ×2 (13:20→21:30)
--- NOTE | 2016-06-01 13:22 | General Progress Note ---
Assessment/Plan Problem List: (1) Chest pain ICD Codes: R07.9 - Chest pain, unspecified SNOMED: 38223494 Qualifiers: Qualified Codes: R07.9 - Chest pain, unspecified (2) Pleurisy ICD Codes: R09.1 - Pleurisy SNOMED: 144571285, [id number] Status: progressing Assessment/Plan afebrile no cp no sob vitals stable reviewed chart and labs Subjective ROS Limited/Unobtainable: Yes Constitutional: Reports: no symptoms Allergies: Coded Allergies: No Known Allergies (Unverified , 05/24/16) Objective Last 24 Hour Vital Signs Date Time Temp Pulse Resp B/P Pulse Ox O2 Delivery O2 Flow Rate FiO2 06/01/16 08:00 97.7 90 22 133/84 96 Room Air 06/01/16 04:00 97.3 76 20 129/58 97 Room Air 06/01/16 00:00 95.7 86 20 123/69 98 Room Air 05/31/16 20:00 97.2 96 18 136/80 96 Room Air 05/31/16 19:55 86 18 Room Air 21 05/31/16 16:00 97.6 74 17 119/64 94 Room Air Intake and Output 05/31/16 06/01/16 19:00 07:00 Intake Total 620 ml 500 ml Balance 620 ml 500 ml Intake Oral 620 ml 500 ml # Voids 3 4 Height (Feet): 5 Height (Inches): 9.00 Weight (Pounds): 180 EENT: PERRL/EOMI Neck: supple Cardiovascular: normal rate Respiratory/Chest: lungs clear Abdomen: soft Jesse Dean MD Jun 01, 2016 13:22
[2016-06-01 14:14] LABS: BLASTOMYCES AB - ID Negative (Neg:<1:1)
[2016-06-01 14:14] LABS: MTB DETECTION NAA Negative (Negative)
[2016-06-01 16:00] VITALS: BP 126/93
--- NOTE | 2016-06-01 16:38 | Cardiac Electrophysiology PN ---
Assessment/Plan Assessment/Plan 1. Sinus tachycardia with no evidence of atrial fibrillation or any other cardiac arrhythmia. Likely due to patient's underlying pulmonary process. 2. Right upper chest pain due to Cavitary lung disease, rule out mycobacterium infection versus fungal infection versus metastasis with malignant process. Still in isolation for cavitary lesion on chest CT. ID following. 3rd sputum pending. HEIDI RN. Subjective Subjective Still in respiratory isolation. No chest pain or SOB.No events overnight. Objective Last 24 Hour Vital Signs Date Time Temp Pulse Resp B/P Pulse Ox O2 Delivery O2 Flow Rate FiO2 06/01/16 12:00 97.5 85 18 117/73 94 Room Air 06/01/16 08:00 97.7 90 22 133/84 96 Room Air 06/01/16 04:00 97.3 76 20 129/58 97 Room Air 06/01/16 00:00 95.7 86 20 123/69 98 Room Air 05/31/16 20:00 97.2 96 18 136/80 96 Room Air 05/31/16 19:55 86 18 Room Air 21 Intake and Output 05/31/16 06/01/16 19:00 07:00 Intake Total 620 ml 500 ml Balance 620 ml 500 ml Intake Oral 620 ml 500 ml # Voids 3 4 Objective HEAD AND NECK: No JVD. LUNGS: Decreased breath sounds on the right side. CARDIOVASCULAR: Regular S1 and S2 with no gallop or murmur.Tachycardic. ABDOMEN: Soft and nontender. EXTREMITIES: No pitting edema. JOHN PENA Jun 01, 2016 16:38
--- NOTE | 2016-06-01 16:39 | Pulmonology Progress Note ---
Assessment/Plan Problems: (1) Cavitary lung disease (2) Chest pain (3) Pleurisy Assessment/Plan ppd positive sputum pending septic emboli is not likely. TB is a real possibility because of Monocytosis Subjective ROS Limited/Unobtainable: No Constitutional: Reports: no symptoms HEENT: Repors: no symptoms Respiratory: Reports: no symptoms Cardiovascular: Reports: no symptoms Allergies: Coded Allergies: No Known Allergies (Unverified , 05/24/16) Objective Last 24 Hour Vital Signs Date Time Temp Pulse Resp B/P Pulse Ox O2 Delivery O2 Flow Rate FiO2 06/01/16 12:00 97.5 85 18 117/73 94 Room Air 06/01/16 08:00 97.7 90 22 133/84 96 Room Air 06/01/16 04:00 97.3 76 20 129/58 97 Room Air 06/01/16 00:00 95.7 86 20 123/69 98 Room Air 05/31/16 20:00 97.2 96 18 136/80 96 Room Air 05/31/16 19:55 86 18 Room Air 21 Intake and Output 05/31/16 06/01/16 19:00 07:00 Intake Total 620 ml 500 ml Balance 620 ml 500 ml Intake Oral 620 ml 500 ml # Voids 3 4 General Appearance: WD/WN HEENT: normocephalic Respiratory/Chest: chest wall non-tender, chest wall tender Abdomen: normal bowel sounds Genitourinary: normal external genitalia Skin: no rash Current Medications Medications (Trade) Dose Ordered Sig/Keila Route PRN Reason Start Time Stop Time Status Last Admin Dose Admin Acetaminophen (Tylenol) 650 mg Q4H PRN ORAL FEVER 05/29/16 18:00 06/28/16 17:59 Albuterol/ Ipratropium (DuoNeb 0.5-3(2.5)mg/3ml) 3 ml Q4H PRN HHN Shortness of Breath 05/29/16 18:00 06/03/16 17:59 06/01/16 13:19 Aspirin (ASA) 162 mg DAILY ORAL 05/30/16 09:00 06/29/16 08:59 06/01/16 13:00 Fish Oil (Fish Oil) 1,000 mg DAILY ORAL 05/30/16 09:00 06/29/16 08:59 06/01/16 13:00 Heparin Sodium (Porcine) (Heparin 5000 units/ml) 5,000 units EVERY 12 HOURS SUBQ 05/29/16 21:00 06/28/16 20:59 06/01/16 13:20 Morphine Sulfate (Morphine Sulfate) 2 mg Q4H PRN IVP severe Pain (Pain Scale 7-10) 05/29/16 18:00 06/05/16 17:59 Nitroglycerin (Ntg) 0.4 mg Q5M x 3 doses PRN SL Prn Chest Pain 05/29/16 14:45 06/28/16 14:44 Ondansetron HCl (Zofran) 4 mg Q6H PRN IVP Nausea & Vomiting 05/29/16 16:00 06/28/16 15:59 Pantoprazole (Protonix) 40 mg ACBREAKFAST ORAL 05/30/16 06:30 06/29/16 06:29 06/01/16 06:20 Polyethylene Glycol (Miralax) 17 gm DAILYPRN PRN ORAL Constipation 05/29/16 22:00 06/28/16 21:59 Temazepam (Restoril) 15 mg HSPRN PRN ORAL Insomnia 05/29/16 22:00 06/05/16 21:59 SAGAR CHRIS Jun 01, 2016 16:39
--- NOTE | 2016-06-01 17:38 | General Progress Note ---
Assessment/Plan Assessment/Plan ASSESSMENT: 1. Monocytosis. Need to rule out tuberculosis. PPD+ and AFB of sputum is being ruled out, currently negative. Monocytosis better 2. Pulmonary nodules. Need to rule out tuberculosis versus coccidioidomycosis versus Aspergillosis and other causes as well. Being seen by Pulmonary team. 3. Chest pain, improved, non-cardiac in nature. Cardiology followup 4. Hypertension. 5. Hyperlipidemia. RECOMMENDATIONS: 1. R/o TB v other infectious process 2. Monitor counts. 3. Followup on infectious workup. 4. Followup on Cardiology and ID recs. 5. Peripheral smear has been reviewed 6. DVT prophylaxis with heparin sq. 7. GI prophylaxis with PPI. 8. Continue aspirin. 9. staff. Thank you, Gerry Winston MD Subjective Constitutional: Reports: no symptoms HEENT: Reports: no symptoms Cardiovascular: Reports: no symptoms Respiratory: Reports: no symptoms Gastrointestinal/Abdominal: Reports: poor appetite Genitourinary: Reports: no symptoms Neurologic/Psychiatric: Reports: no symptoms Endocrine: Reports: no symptoms Hematologic/Lymphatic: Reports: anemia Allergies: Coded Allergies: No Known Allergies (Unverified , 05/24/16) Subjective stable, wants to know when can go home Objective Last 24 Hour Vital Signs Date Time Temp Pulse Resp B/P Pulse Ox O2 Delivery O2 Flow Rate FiO2 06/01/16 12:00 97.5 85 18 117/73 94 Room Air 06/01/16 08:00 97.7 90 22 133/84 96 Room Air 06/01/16 04:00 97.3 76 20 129/58 97 Room Air 06/01/16 00:00 95.7 86 20 123/69 98 Room Air 05/31/16 20:00 97.2 96 18 136/80 96 Room Air 05/31/16 19:55 86 18 Room Air 21 Intake and Output 05/31/16 06/01/16 19:00 07:00 Intake Total 620 ml 500 ml Balance 620 ml 500 ml Intake Oral 620 ml 500 ml # Voids 3 4 Height (Feet): 5 Height (Inches): 9.00 Weight (Pounds): 180 General Appearance: no apparent distress EENT: normal ENT inspection Neck: supple Cardiovascular: regular rhythm Respiratory/Chest: lungs clear Abdomen: non tender Genitourinary/Rectal: heme negative stool Extremities: non-tender Edema: no edema noted Leg (L), no edema noted Leg (R) Edema: mild edema Neurologic: alert Skin: warm/dry Gerry Winston Jun 01, 2016 17:38
--- NOTE | 2016-06-01 18:18 | Infectious Diseases Prog Note ---
Assessment/Plan Problems: (1) Cavitary lung disease Assessment & Plan: doubt TB with negative smear x 3 and negative PPD test , suspect fungal VS malignant process with mets, may remove from respiratory isolation , await sputum culture , and fungal serology, coccidiomycosis, aspergillosis serology are pending , HIV test is negative , await T spot result , Echo didn't show any valvular vegetation to explain septic emboli , and blood culture remained negative .recommend CT guided biopsy if infectious work up is negative (2) Pleurisy Assessment & Plan: due to the above, continue pain management as per primary Subjective Constitutional: Reports: no symptoms HEENT: Reports: no symptoms Respiratory: Reports: no symptoms Breasts: Reports: no symptoms Cardiovascular: Reports: no symptoms Gastrointestinal/Abdominal: Reports: no symptoms Genitourinary: Reports: no symptoms Neurologic: Reports: no symptoms Psychiatric: Reports: no symptoms Skin: Reports: no symptoms Endocrine: Reports: no symptoms Allergies: Coded Allergies: No Known Allergies (Unverified , 05/24/16) Subjective he was doing ok, denied any fever or chills, no nausea or vomiting Objective Vital Signs Last 24 Hour Vital Signs Date Time Temp Pulse Resp B/P Pulse Ox O2 Delivery O2 Flow Rate FiO2 06/01/16 12:00 97.5 85 18 117/73 94 Room Air 06/01/16 08:00 97.7 90 22 133/84 96 Room Air 06/01/16 04:00 97.3 76 20 129/58 97 Room Air 06/01/16 00:00 95.7 86 20 123/69 98 Room Air 05/31/16 20:00 97.2 96 18 136/80 96 Room Air 05/31/16 19:55 86 18 Room Air 21 Height (Feet): 5 Height (Inches): 9.00 Weight (Pounds): 180 General Appearance: WD/WN, no acute distress HEENT: normocephalic, atraumatic, anicteric, mucous membranes moist Respiratory/Chest: chest wall non-tender, lungs clear, normal breath sounds, no respiratory distress, no accessory muscle use Cardiovascular: normal peripheral pulses, normal rate, regular rhythm, no gallop/murmur Abdomen: normal bowel sounds, soft, non tender, no organomegaly, non distended , no mass Extremities: no cyanosis, no clubbing Skin: no rash, no lesions, no ulcers Current Medications Medications (Trade) Dose Ordered Sig/Keila Route PRN Reason Start Time Stop Time Status Last Admin Dose Admin Acetaminophen (Tylenol) 650 mg Q4H PRN ORAL FEVER 05/29/16 18:00 06/28/16 17:59 Albuterol/ Ipratropium (DuoNeb 0.5-3(2.5)mg/3ml) 3 ml Q4H PRN HHN Shortness of Breath 05/29/16 18:00 06/03/16 17:59 06/01/16 13:19 Aspirin (ASA) 162 mg DAILY ORAL 05/30/16 09:00 06/29/16 08:59 06/01/16 13:00 Fish Oil (Fish Oil) 1,000 mg DAILY ORAL 05/30/16 09:00 06/29/16 08:59 06/01/16 13:00 Heparin Sodium (Porcine) (Heparin 5000 units/ml) 5,000 units EVERY 12 HOURS SUBQ 05/29/16 21:00 06/28/16 20:59 06/01/16 13:20 Morphine Sulfate (Morphine Sulfate) 2 mg Q4H PRN IVP severe Pain (Pain Scale 7-10) 05/29/16 18:00 06/05/16 17:59 Nitroglycerin (Ntg) 0.4 mg Q5M x 3 doses PRN SL Prn Chest Pain 05/29/16 14:45 06/28/16 14:44 Ondansetron HCl (Zofran) 4 mg Q6H PRN IVP Nausea & Vomiting 05/29/16 16:00 06/28/16 15:59 Pantoprazole (Protonix) 40 mg ACBREAKFAST ORAL 05/30/16 06:30 06/29/16 06:29 06/01/16 06:20 Polyethylene Glycol (Miralax) 17 gm DAILYPRN PRN ORAL Constipation 05/29/16 22:00 06/28/16 21:59 Temazepam (Restoril) 15 mg HSPRN PRN ORAL Insomnia 05/29/16 22:00 06/05/16 21:59 Erin Navarrete M.D. Jun 01, 2016 18:18
[2016-06-01 19:00] VITALS: BP 130/88
[2016-06-01 20:08] LABS: HISTOPLASMA MYCELIAL ID AB Negative (Negative)
[2016-06-02] VITALS: BP 135/78
[2016-06-02 04:00] VITALS: BP 127/59
[2016-06-02 08:00] VITALS: BP 151/75
[2016-06-02] MEDS: Aspirin Baby 81mg ORAL SCH (08:50)
--- NOTE | 2016-06-02 08:54 | General Progress Note ---
Assessment/Plan Assessment/Plan ASSESSMENT: 1. Monocytosis. Need to rule out tuberculosis. PPD+ and AFB of sputum is being ruled out, currently negative. Monocytosis better 2. Pulmonary nodules. Need to rule out tuberculosis versus coccidioidomycosis versus Aspergillosis and other causes as well. Being seen by Pulmonary team. 3. Chest pain, improved, non-cardiac in nature. Cardiology followup 4. Hypertension. 5. Hyperlipidemia. RECOMMENDATIONS: 1. R/o TB v other infectious process 2. Monitor counts. 3. Followup on infectious workup. 4. Followup on Cardiology and ID recs. 5. Peripheral smear has been reviewed 6. DVT prophylaxis with heparin sq. 7. GI prophylaxis with PPI. 8. Continue aspirin. 9. staff. Thank you, Gerry Winston MD Subjective Constitutional: Reports: no symptoms HEENT: Reports: no symptoms Cardiovascular: Reports: no symptoms Respiratory: Reports: no symptoms Gastrointestinal/Abdominal: Reports: no symptoms Genitourinary: Reports: no symptoms Neurologic/Psychiatric: Reports: no symptoms Endocrine: Reports: no symptoms Hematologic/Lymphatic: Reports: anemia Allergies: Coded Allergies: No Known Allergies (Unverified , 05/24/16) Subjective stable, alert watching tv Objective Last 24 Hour Vital Signs Date Time Temp Pulse Resp B/P Pulse Ox O2 Delivery O2 Flow Rate FiO2 06/02/16 08:00 97.3 73 18 151/75 98 Room Air 06/02/16 04:00 97.9 62 19 127/59 97 Room Air 06/02/16 00:00 98.2 58 20 135/78 95 Room Air 06/01/16 19:05 85 20 Room Air 21 06/01/16 19:00 97.0 88 20 130/88 96 Room Air 06/01/16 16:00 96.1 87 22 126/93 99 Room Air 06/01/16 12:00 97.5 85 18 117/73 94 Room Air Intake and Output 06/01/16 06/02/16 19:00 07:00 Intake Total 590 ml 480 ml Balance 590 ml 480 ml Intake Oral 590 ml 480 ml # Voids 3 7 # Bowel Movements 1 1 Laboratory Tests 06/02/16 05:40: TB Test (T-Spot) [Pending], TB Test Nil Control (T-Spot) [Pending], TB Test Panel A (T-Spot) [Pending], TB Test Panel B (T-Spot) [Pending], TB Test Positive Control (T-Spot) [Pending] Height (Feet): 5 Height (Inches): 9.00 Weight (Pounds): 180 General Appearance: no apparent distress EENT: normal ENT inspection Neck: supple Cardiovascular: normal rate Respiratory/Chest: normal breath sounds Abdomen: non tender Extremities: normal range of motion Edema: no edema noted Leg (L), no edema noted Leg (R) Edema: mild edema Neurologic: alert Skin: warm/dry Gerry Winston Jun 02, 2016 08:54
[2016-06-02] MEDS: Heparin 5000 units/ml inj SUBQ SCH ×2 (08:55→20:41)
[2016-06-02 12:00] VITALS: BP 129/82
[2016-06-02 16:00] VITALS: BP 129/85
--- NOTE | 2016-06-02 16:31 | Pulmonology Progress Note ---
Assessment/Plan Problems: (1) Cavitary lung disease (2) Chest pain (3) Pleurisy Assessment/Plan ppd positive ?? sputum pending so far negative for afb pt stated that he goes to [facility] to pray in a cave. ( he pays 20 dollars for a night) that exposition increases the possibility of the Histoplasmosis, titer are weekly positive 1:8 Subjective ROS Limited/Unobtainable: Yes Interval Events: no complains Allergies: Coded Allergies: No Known Allergies (Unverified , 05/24/16) Objective Last 24 Hour Vital Signs Date Time Temp Pulse Resp B/P Pulse Ox O2 Delivery O2 Flow Rate FiO2 06/02/16 16:00 97.7 96 20 129/85 Room Air 06/02/16 12:00 98.1 93 18 129/82 97 Room Air 06/02/16 08:12 82 20 Room Air 21 06/02/16 08:00 97.3 73 18 151/75 98 Room Air 06/02/16 04:00 97.9 62 19 127/59 97 Room Air 06/02/16 00:00 98.2 58 20 135/78 95 Room Air 06/01/16 19:05 85 20 Room Air 21 06/01/16 19:00 97.0 88 20 130/88 96 Room Air Intake and Output 06/01/16 06/02/16 19:00 07:00 Intake Total 590 ml 480 ml Balance 590 ml 480 ml Intake Oral 590 ml 480 ml # Voids 3 7 # Bowel Movements 1 1 General Appearance: WD/WN HEENT: normocephalic Respiratory/Chest: chest wall non-tender Cardiovascular: normal peripheral pulses, regular rhythm Abdomen: normal bowel sounds, no organomegaly Current Medications Medications (Trade) Dose Ordered Sig/Keila Route PRN Reason Start Time Stop Time Status Last Admin Dose Admin Acetaminophen (Tylenol) 650 mg Q4H PRN ORAL FEVER 05/29/16 18:00 06/28/16 17:59 Albuterol/ Ipratropium (DuoNeb 0.5-3(2.5)mg/3ml) 3 ml Q4H PRN HHN Shortness of Breath 05/29/16 18:00 06/03/16 17:59 06/01/16 13:19 Aspirin (ASA) 162 mg DAILY ORAL 05/30/16 09:00 06/29/16 08:59 06/02/16 08:50 Fish Oil (Fish Oil) 1,000 mg DAILY ORAL 05/30/16 09:00 06/29/16 08:59 06/02/16 08:50 Heparin Sodium (Porcine) (Heparin 5000 units/ml) 5,000 units EVERY 12 HOURS SUBQ 05/29/16 21:00 06/28/16 20:59 06/02/16 08:55 Morphine Sulfate (Morphine Sulfate) 2 mg Q4H PRN IVP severe Pain (Pain Scale 7-10) 05/29/16 18:00 06/05/16 17:59 Nitroglycerin (Ntg) 0.4 mg Q5M x 3 doses PRN SL Prn Chest Pain 05/29/16 14:45 06/28/16 14:44 Ondansetron HCl (Zofran) 4 mg Q6H PRN IVP Nausea & Vomiting 05/29/16 16:00 06/28/16 15:59 Pantoprazole (Protonix) 40 mg ACBREAKFAST ORAL 05/30/16 06:30 06/29/16 06:29 06/02/16 06:23 Polyethylene Glycol (Miralax) 17 gm DAILYPRN PRN ORAL Constipation 05/29/16 22:00 06/28/16 21:59 Temazepam (Restoril) 15 mg HSPRN PRN ORAL Insomnia 05/29/16 22:00 06/05/16 21:59 SAGAR CHRIS Jun 02, 2016 16:31
--- NOTE | 2016-06-02 16:44 | General Progress Note ---
Assessment/Plan Problem List: (1) Chest pain ICD Codes: R07.9 - Chest pain, unspecified SNOMED: [id number] Qualifiers: Qualified Codes: R07.9 - Chest pain, unspecified (2) Pleurisy ICD Codes: R09.1 - Pleurisy SNOMED: [id number], [id number] Status: progressing Assessment/Plan pneumonia treatment per pulmonary and id afebrile reviewed chart and labs Subjective Constitutional: Reports: no symptoms Allergies: Coded Allergies: No Known Allergies (Unverified , 05/24/16) Objective Last 24 Hour Vital Signs Date Time Temp Pulse Resp B/P Pulse Ox O2 Delivery O2 Flow Rate FiO2 06/02/16 16:00 97.7 96 20 129/85 Room Air 06/02/16 12:00 98.1 93 18 129/82 97 Room Air 06/02/16 08:12 82 20 Room Air 21 06/02/16 08:00 97.3 73 18 151/75 98 Room Air 06/02/16 04:00 97.9 62 19 127/59 97 Room Air 06/02/16 00:00 98.2 58 20 135/78 95 Room Air 06/01/16 19:05 85 20 Room Air 21 06/01/16 19:00 97.0 88 20 130/88 96 Room Air Intake and Output 06/01/16 06/02/16 19:00 07:00 Intake Total 590 ml 480 ml Balance 590 ml 480 ml Intake Oral 590 ml 480 ml # Voids 3 7 # Bowel Movements 1 1 Height (Feet): 5 Height (Inches): 9.00 Weight (Pounds): 180 Cardiovascular: normal rate Respiratory/Chest: lungs clear Abdomen: soft Jesse Dean MD Jun 02, 2016 16:44
--- NOTE | 2016-06-02 17:50 | Infectious Diseases Prog Note ---
Assessment/Plan Problems: (1) Histoplasmosis pneumonia Assessment & Plan: with positive titer , and cavitary lung lesions due to praying in a cave, will start itraconazol for three months (2) Cavitary lung disease Assessment & Plan: doubt TB with negative smear x 3 and negative PPD test , suspect fungal due to histoplasmosis , will treat with itraconazol for three months, recommend to repeat CT scan of the chest in 6 weeks to confirm the improvement of his lung lesions may remove from respiratory isolation , await sputum culture , and other fungal serology, coccidiomycosis, aspergillosis serology are pending , HIV test is negative , await T spot result, Echo didn't show any valvular vegetation to explain septic emboli , and blood culture remained negative .recommend CT guided biopsy if infectious work up is negative (3) Pleurisy Assessment & Plan: due to the above, continue pain management as per primary Subjective Constitutional: Reports: no symptoms HEENT: Reports: no symptoms Respiratory: Reports: no symptoms Breasts: Reports: no symptoms Cardiovascular: Reports: no symptoms Gastrointestinal/Abdominal: Reports: no symptoms Genitourinary: Reports: no symptoms Neurologic: Reports: no symptoms Psychiatric: Reports: no symptoms Skin: Reports: no symptoms Endocrine: Reports: no symptoms Hematologic: Reports: no symptoms Musculoskeletal: Reports: no symptoms Allergies: Coded Allergies: No Known Allergies (Unverified , 05/24/16) Subjective he was doing ok, denied any fever or chills, no nausea or vomiting Objective Vital Signs Last 24 Hour Vital Signs Date Time Temp Pulse Resp B/P Pulse Ox O2 Delivery O2 Flow Rate FiO2 06/02/16 16:00 97.7 96 20 129/85 Room Air 06/02/16 12:00 98.1 93 18 129/82 97 Room Air 06/02/16 08:12 82 20 Room Air 06/02/16 08:00 97.3 73 18 151/75 98 Room Air 06/02/16 04:00 97.9 62 19 127/59 97 Room Air 06/02/16 00:00 98.2 58 20 135/78 95 Room Air 06/01/16 19:05 85 20 Room Air 21 06/01/16 19:00 97.0 88 20 130/88 96 Room Air Height (Feet): 5 Height (Inches): 9.00 Weight (Pounds): 180 General Appearance: WD/WN, no acute distress HEENT: normocephalic, atraumatic, anicteric, mucous membranes moist Respiratory/Chest: chest wall non-tender, lungs clear, normal breath sounds, no respiratory distress, no accessory muscle use Cardiovascular: normal peripheral pulses, normal rate, regular rhythm, regularly irregular, no gallop/murmur Abdomen: normal bowel sounds, soft, non tender, no organomegaly, non distended , no mass, no scars Genitourinary: normal external genitalia Extremities: no cyanosis, no clubbing Skin: no rash, no lesions, no ulcers Current Medications Medications (Trade) Dose Ordered Sig/Keila Route PRN Reason Start Time Stop Time Status Last Admin Dose Admin Acetaminophen (Tylenol) 650 mg Q4H PRN ORAL FEVER 05/29/16 18:00 06/28/16 17:59 Albuterol/ Ipratropium (DuoNeb 0.5-3(2.5)mg/3ml) 3 ml Q4H PRN HHN Shortness of Breath 05/29/16 18:00 06/03/16 17:59 06/01/16 13:19 Aspirin (ASA) 162 mg DAILY ORAL 05/30/16 09:00 06/29/16 08:59 06/02/16 08:50 Fish Oil (Fish Oil) 1,000 mg DAILY ORAL 05/30/16 09:00 06/29/16 08:59 06/02/16 08:50 Heparin Sodium (Porcine) (Heparin 5000 units/ml) 5,000 units EVERY 12 HOURS SUBQ 05/29/16 21:00 06/28/16 20:59 06/02/16 08:55 Morphine Sulfate (Morphine Sulfate) 2 mg Q4H PRN IVP severe Pain (Pain Scale 7-10) 05/29/16 18:00 06/05/16 17:59 Nitroglycerin (Ntg) 0.4 mg Q5M x 3 doses PRN SL Prn Chest Pain 05/29/16 14:45 06/28/16 14:44 Ondansetron HCl (Zofran) 4 mg Q6H PRN IVP Nausea & Vomiting 05/29/16 16:00 06/28/16 15:59 Pantoprazole (Protonix) 40 mg ACBREAKFAST ORAL 05/30/16 06:30 06/29/16 06:29 06/02/16 06:23 Polyethylene Glycol (Miralax) 17 gm DAILYPRN PRN ORAL Constipation 05/29/16 22:00 06/28/16 21:59 Temazepam (Restoril) 15 mg HSPRN PRN ORAL Insomnia 05/29/16 22:00 06/05/16 21:59 Erin Navarrete M.D. Jun 02, 2016 17:50
--- NOTE | 2016-06-02 18:48 | Cardiac Electrophysiology PN ---
Assessment/Plan Assessment/Plan 1. Sinus tachycardia with no evidence of atrial fibrillation or any other cardiac arrhythmia.Due to patient's underlying pulmonary process. 2. Right upper chest pain due to Cavitary lung disease, rule out mycobacterium infection versus fungal infection versus metastasis with malignant process.Still in isolation for cavitary lesion on chest CT. ID following. 3rd sputum still pending. HEIDI RN. Subjective Subjective Still in respiratory isolation.Awaiting 3rd sputum. No chest pain or SOB.No events overnight. Objective Last 24 Hour Vital Signs Date Time Temp Pulse Resp B/P Pulse Ox O2 Delivery O2 Flow Rate FiO2 06/02/16 16:00 97.7 96 20 129/85 Room Air 06/02/16 12:00 98.1 93 18 129/82 97 Room Air 06/02/16 08:12 82 20 Room Air 21 06/02/16 08:00 97.3 73 18 151/75 98 Room Air 06/02/16 04:00 97.9 62 19 127/59 97 Room Air 06/02/16 00:00 98.2 58 20 135/78 95 Room Air 06/01/16 19:05 85 20 Room Air 21 06/01/16 19:00 97.0 88 20 130/88 96 Room Air Intake and Output 06/01/16 06/02/16 19:00 07:00 Intake Total 590 ml 480 ml Balance 590 ml 480 ml Intake Oral 590 ml 480 ml # Voids 3 7 # Bowel Movements 1 1 Objective HEAD AND NECK: No JVD. LUNGS: Decreased breath sounds on the right side. CARDIOVASCULAR: Regular S1 and S2 with no gallop or murmur.Tachycardic. ABDOMEN: Soft and nontender. EXTREMITIES: No pitting edema. JOHN PENA Jun 02, 2016 18:48
[2016-06-02 19:00] VITALS: BP 130/84
[2016-06-02 19:09] LABS: COCCIDIODES AB-CF/SERUM Negative (Neg:<1:2)
[2016-06-03] VITALS: BP 137/52
[2016-06-03 04:00] VITALS: BP 137/58
[2016-06-03 08:05] LABS: EOSINOPHILS % (AUTO) 4.8 % (0.0-3.0); LYMPHOCYTES % (AUTO) 18.4 % (20.0-45.0); MEAN CORPUSCULAR HEMOGLOBIN 29.5 PG (27.0-31.0); MEAN CORPUSCULAR HGB CONC 34.5 G/DL (32.0-36.0); MEAN CORPUSCULAR VOLUME 85 FL (80-99); MEAN PLATELET VOLUME 7.7 FL (6.5-10.1); MONOCYTES % (AUTO) 9.1 % (1.0-10.0); NEUTROPHILS % (AUTO) 66.7 % (45.0-75.0); PLATELET COUNT 288 K/UL (150-450); WHITE BLOOD COUNT 8.3 K/UL (4.8-10.8)
[2016-06-03 08:20] VITALS: BP 154/73
[2016-06-03] MEDS: Aspirin Baby 81mg ORAL SCH (08:35)
[2016-06-03] MEDS: Heparin 5000 units/ml inj SUBQ SCH ×2 (08:39→21:30)
[2016-06-03 12:10] LABS: ASPERGILLUS FUMIGATUS AB IGE Negative (Negative)
[2016-06-03 12:12] VITALS: BP 135/77
--- NOTE | 2016-06-03 14:38 | General Progress Note ---
Assessment/Plan Assessment/Plan ASSESSMENT: 1. Monocytosis. Need to rule out tuberculosis. AFB negative, likely 2/2 histo 2. Pulmonary nodules. Likely histo - started on itraconazole 3. Chest pain, improved, non-cardiac in nature. Cardiology followup 4. Hypertension. 5. Hyperlipidemia. RECOMMENDATIONS: 1. F/U on histo cultures 2. Started on itraconazole 3. Followup on infectious recs 4. Followup on Cardiology and ID recs. 5. Peripheral smear has been reviewed 6. DVT prophylaxis with heparin sq. 7. GI prophylaxis with PPI. 8. Continue aspirin. 9. staff. Thank you, Gerry Winston MD Subjective Constitutional: Reports: no symptoms HEENT: Reports: no symptoms Cardiovascular: Reports: no symptoms Respiratory: Reports: no symptoms Gastrointestinal/Abdominal: Reports: no symptoms Genitourinary: Reports: no symptoms Neurologic/Psychiatric: Reports: no symptoms Endocrine: Reports: no symptoms Hematologic/Lymphatic: Reports: anemia Allergies: Coded Allergies: No Known Allergies (Unverified , 05/24/16) Subjective stable, no complaints noted, on itraconazole Objective Last 24 Hour Vital Signs Date Time Temp Pulse Resp B/P Pulse Ox O2 Delivery O2 Flow Rate FiO2 06/03/16 12:12 97.9 80 19 135/77 93 Room Air 06/03/16 08:20 97.7 93 20 154/73 93 Room Air 06/03/16 07:48 78 18 Room Air 06/03/16 04:00 97.7 75 20 137/58 92 Room Air 06/03/16 00:00 98.2 57 20 137/52 97 Room Air 06/02/16 19:15 84 18 Room Air 21 06/02/16 19:00 97.7 98 20 130/84 Room Air 06/02/16 16:00 97.7 96 20 129/85 Room Air Intake and Output 06/02/16 06/03/16 19:00 07:00 Intake Total 680 ml 540 ml Balance 680 ml 540 ml Intake Oral 680 ml 540 ml # Voids 5 7 # Bowel Movements 1 1 Laboratory Tests 06/03/16 05:30: M. tuberculosis Complex DNA (PCR) [Pending] 06/03/16 07:00: White Blood Count 8.3, Red Blood Count 4.90, Hemoglobin 14.5, Hematocrit 41.9L, Mean Corpuscular Volume 85, Mean Corpuscular Hemoglobin 29.5, Mean Corpuscular Hemoglobin Concent 34.5, Red Cell Distribution Width 11.0L, Platelet Count 288, Mean Platelet Volume 7.7, Neutrophils (%) (Auto) 66.7, Lymphocytes (%) (Auto) 18.4L, Monocytes (%) (Auto) 9.1, Eosinophils (%) (Auto) 4.8H, Basophils (%) ( Auto) 1.0 Height (Feet): 5 Height (Inches): 9.00 Weight (Pounds): 180 General Appearance: no apparent distress EENT: TMs normal Neck: non-tender Cardiovascular: normal peripheral pulses Respiratory/Chest: lungs clear Abdomen: normal bowel sounds Extremities: non-tender Edema: 1+ Leg (L), 1+ Leg (R) Edema: mild edema Neurologic: no motor/sensory deficits Gerry Winston Jun 03, 2016 14:38
[2016-06-03 16:39] VITALS: BP 132/81
--- NOTE | 2016-06-03 16:51 | General Progress Note ---
Assessment/Plan Problem List: (1) Chest pain ICD Codes: R07.9 - Chest pain, unspecified SNOMED: 33100945 Qualifiers: Qualified Codes: R07.9 - Chest pain, unspecified (2) Pleurisy ICD Codes: R09.1 - Pleurisy SNOMED: 609760932, [id number] Status: progressing Assessment/Plan chest pain pna isolation reviewed chart and labs needs clearance from [facility] before dc Subjective ROS Limited/Unobtainable: Yes Constitutional: Reports: no symptoms Allergies: Coded Allergies: No Known Allergies (Unverified , 05/24/16) Objective Last 24 Hour Vital Signs Date Time Temp Pulse Resp B/P Pulse Ox O2 Delivery O2 Flow Rate FiO2 06/03/16 16:39 97.5 82 20 132/81 Room Air 06/03/16 12:12 97.9 80 19 135/77 93 Room Air 06/03/16 08:20 97.7 93 20 154/73 93 Room Air 06/03/16 07:48 78 18 Room Air 06/03/16 04:00 97.7 75 20 137/58 92 Room Air 06/03/16 00:00 98.2 57 20 137/52 97 Room Air 06/02/16 19:15 84 18 Room Air 21 06/02/16 19:00 97.7 98 20 130/84 Room Air Intake and Output 06/02/16 06/03/16 19:00 07:00 Intake Total 680 ml 540 ml Balance 680 ml 540 ml Intake Oral 680 ml 540 ml # Voids 5 7 # Bowel Movements 1 1 Laboratory Tests 06/03/16 05:30: M. tuberculosis Complex DNA (PCR) [Pending] 06/03/16 07:00: White Blood Count 8.3, Red Blood Count 4.90, Hemoglobin 14.5, Hematocrit 41.9L, Mean Corpuscular Volume 85, Mean Corpuscular Hemoglobin 29.5, Mean Corpuscular Hemoglobin Concent 34.5, Red Cell Distribution Width 11.0L, Platelet Count 288, Mean Platelet Volume 7.7, Neutrophils (%) (Auto) 66.7, Lymphocytes (%) (Auto) 18.4L, Monocytes (%) (Auto) 9.1, Eosinophils (%) (Auto) 4.8H, Basophils (%) ( Auto) 1.0 Height (Feet): 5 Height (Inches): 9.00 Weight (Pounds): 180 Neck: non-tender Cardiovascular: normal rate Respiratory/Chest: lungs clear Abdomen: soft Jesse Dean MD Jun 03, 2016 16:51
--- NOTE | 2016-06-03 17:31 | Cardiac Electrophysiology PN ---
Assessment/Plan Assessment/Plan 1. Sinus tachycardia . No atrial fibrillation or any other cardiac arrhythmia.Due to patient's underlying pulmonary process.Resolved 2. Right upper chest pain due to Cavitary lung disease, rule out mycobacterium infection versus fungal infection versus metastasis with malignant process.Still in isolation for cavitary lesion on chest CT. ID following. 3rd sputum still pending. HEIDI RN and Dr Servin. Subjective Subjective Still in respiratory isolation awaiting 3rd sputum. .No events overnight. Objective Last 24 Hour Vital Signs Date Time Temp Pulse Resp B/P Pulse Ox O2 Delivery O2 Flow Rate FiO2 06/03/16 16:39 97.5 82 20 132/81 Room Air 06/03/16 12:12 97.9 80 19 135/77 93 Room Air 06/03/16 08:20 97.7 93 20 154/73 93 Room Air 06/03/16 07:48 78 18 Room Air 06/03/16 04:00 97.7 75 20 137/58 92 Room Air 06/03/16 00:00 98.2 57 20 137/52 97 Room Air 06/02/16 19:15 84 18 Room Air 21 06/02/16 19:00 97.7 98 20 130/84 Room Air Intake and Output 06/02/16 06/03/16 19:00 07:00 Intake Total 680 ml 540 ml Balance 680 ml 540 ml Intake Oral 680 ml 540 ml # Voids 5 7 # Bowel Movements 1 1 Laboratory Tests Test 06/03/16 05:30 06/03/16 07:00 M. tuberculosis Complex DNA (PCR) Pending White Blood Count 8.3 K/UL (4.8-10.8) Red Blood Count 4.90 M/UL (4.70-6.10) Hemoglobin 14.5 G/DL (14.2-18.0) Hematocrit 41.9 % (42.0-52.0) L Mean Corpuscular Volume 85 FL (80-99) Mean Corpuscular Hemoglobin 29.5 PG (27.0-31.0) Mean Corpuscular Hemoglobin Concent 34.5 G/DL (32.0-36.0) Red Cell Distribution Width 11.0 % (11.6-14.8) L Platelet Count 288 K/UL (150-450) Mean Platelet Volume 7.7 FL (6.5-10.1) Neutrophils (%) (Auto) 66.7 % (45.0-75.0) Lymphocytes (%) (Auto) 18.4 % (20.0-45.0) L Monocytes (%) (Auto) 9.1 % (1.0-10.0) Eosinophils (%) (Auto) 4.8 % (0.0-3.0) H Basophils (%) (Auto) 1.0 % (0.0-2.0) Objective HEAD AND NECK: No JVD. LUNGS: Decreased breath sounds on the right side. CARDIOVASCULAR: Regular S1 and S2 with no gallop or murmur.Tachycardic. ABDOMEN: Soft and nontender. EXTREMITIES: No pitting edema. JOHN PENA Jun 03, 2016 17:31
--- NOTE | 2016-06-03 18:00 | Infectious Diseases Prog Note ---
Assessment/Plan Problems: (1) Histoplasmosis pneumonia Assessment & Plan: with positive titer , and cavitary lung lesions due to praying in a cave, will start itraconazole for three months (2) Cavitary lung disease Assessment & Plan: no evidence of TB with negative smear x 3 and negative PPD test , and negative T spot, and negative TB PCR, most likely histoplasmosis , will treat with itraconazol for three months, recommend to repeat CT scan of the chest in 6 weeks to confirm the improvement of his lung lesions may remove from respiratory isolation , other fungal serology are negative , HIV test is negative , Echo didn't show any valvular vegetation to explain septic emboli , and blood culture remained negative . (3) Pleurisy Assessment & Plan: due to the above, continue pain management as per primary Subjective Constitutional: Reports: no symptoms HEENT: Reports: no symptoms Respiratory: Reports: no symptoms Breasts: Reports: no symptoms Cardiovascular: Reports: no symptoms Gastrointestinal/Abdominal: Reports: no symptoms Genitourinary: Reports: no symptoms Neurologic: Reports: no symptoms Psychiatric: Reports: no symptoms Skin: Reports: no symptoms Endocrine: Reports: no symptoms Allergies: Coded Allergies: No Known Allergies (Unverified , 05/24/16) Subjective he was doing ok, denied any fever or chills, no nausea or vomiting Objective Vital Signs Last 24 Hour Vital Signs Date Time Temp Pulse Resp B/P Pulse Ox O2 Delivery O2 Flow Rate FiO2 06/03/16 16:39 97.5 82 20 132/81 Room Air 06/03/16 12:12 97.9 80 19 135/77 93 Room Air 06/03/16 08:20 97.7 93 20 154/73 93 Room Air 06/03/16 07:48 78 18 Room Air 06/03/16 04:00 97.7 75 20 137/58 92 Room Air 06/03/16 00:00 98.2 57 20 137/52 97 Room Air 06/02/16 19:15 84 18 Room Air 21 06/02/16 19:00 97.7 98 20 130/84 Room Air Height (Feet): 5 Height (Inches): 9.00 Weight (Pounds): 180 General Appearance: WD/WN, no acute distress HEENT: normocephalic, atraumatic, anicteric, mucous membranes moist Respiratory/Chest: chest wall non-tender, lungs clear, normal breath sounds, no respiratory distress, no accessory muscle use Cardiovascular: normal peripheral pulses, normal rate, regular rhythm, no gallop/murmur Abdomen: normal bowel sounds, soft, non tender, no organomegaly, non distended , no mass, no scars Extremities: no cyanosis, no clubbing Skin: no rash, no lesions, no ulcers Laboratory Tests Test 06/03/16 05:30 06/03/16 07:00 M. tuberculosis Complex DNA (PCR) Pending White Blood Count 8.3 K/UL (4.8-10.8) Red Blood Count 4.90 M/UL (4.70-6.10) Hemoglobin 14.5 G/DL (14.2-18.0) Hematocrit 41.9 % (42.0-52.0) L Mean Corpuscular Volume 85 FL (80-99) Mean Corpuscular Hemoglobin 29.5 PG (27.0-31.0) Mean Corpuscular Hemoglobin Concent 34.5 G/DL (32.0-36.0) Red Cell Distribution Width 11.0 % (11.6-14.8) L Platelet Count 288 K/UL (150-450) Mean Platelet Volume 7.7 FL (6.5-10.1) Neutrophils (%) (Auto) 66.7 % (45.0-75.0) Lymphocytes (%) (Auto) 18.4 % (20.0-45.0) L Monocytes (%) (Auto) 9.1 % (1.0-10.0) Eosinophils (%) (Auto) 4.8 % (0.0-3.0) H Basophils (%) (Auto) 1.0 % (0.0-2.0) Current Medications Medications (Trade) Dose Ordered Sig/Keila Route PRN Reason Start Time Stop Time Status Last Admin Dose Admin Acetaminophen (Tylenol) 650 mg Q4H PRN ORAL FEVER 05/29/16 18:00 06/28/16 17:59 Albuterol/ Ipratropium (DuoNeb 0.5-3(2.5)mg/3ml) 3 ml Q4H PRN HHN Shortness of Breath 05/29/16 18:00 06/03/16 17:59 06/01/16 13:19 Aspirin (ASA) 162 mg DAILY ORAL 05/30/16 09:00 06/29/16 08:59 06/03/16 08:35 Fish Oil (Fish Oil) 1,000 mg DAILY ORAL 05/30/16 09:00 06/29/16 08:59 06/03/16 08:35 Heparin Sodium (Porcine) (Heparin 5000 units/ml) 5,000 units EVERY 12 HOURS SUBQ 05/29/16 21:00 06/28/16 20:59 06/03/16 08:39 Itraconazole (Sporanox) 200 mg EVERY 12 HOURS ORAL 06/06/16 09:00 08/31/16 08:59 Itraconazole (Sporanox) 200 mg Q8HR ORAL 06/02/16 22:00 06/05/16 14:01 06/03/16 13:38 Morphine Sulfate (Morphine Sulfate) 2 mg Q4H PRN IVP severe Pain (Pain Scale 7-10) 05/29/16 18:00 06/05/16 17:59 Nitroglycerin (Ntg) 0.4 mg Q5M x 3 doses PRN SL Prn Chest Pain 05/29/16 14:45 06/28/16 14:44 Ondansetron HCl (Zofran) 4 mg Q6H PRN IVP Nausea & Vomiting 05/29/16 16:00 06/28/16 15:59 Pantoprazole (Protonix) 40 mg ACBREAKFAST ORAL 05/30/16 06:30 06/29/16 06:29 06/03/16 05:41 Polyethylene Glycol (Miralax) 17 gm DAILYPRN PRN ORAL Constipation 05/29/16 22:00 06/28/16 21:59 Temazepam (Restoril) 15 mg HSPRN PRN ORAL Insomnia 05/29/16 22:00 06/05/16 21:59 Erin Navarrete M.D. Jun 03, 2016 18:00
[2016-06-03 20:00] VITALS: BP 123/79
[2016-06-04] VITALS: BP 128/75
[2016-06-04 04:00] VITALS: BP 138/92
[2016-06-04 08:00] VITALS: BP 132/86
[2016-06-04] MEDS: Aspirin Baby 81mg ORAL SCH (10:36)
[2016-06-04] MEDS: Heparin 5000 units/ml inj SUBQ SCH ×2 (10:39→21:00)
[2016-06-04 12:00] VITALS: BP 130/84
--- NOTE | 2016-06-04 12:47 | General Progress Note ---
Assessment/Plan Assessment/Plan ASSESSMENT: 1. Monocytosis. AFB negative, likely 2/2 histoplasmosis 2. Pulmonary nodules. Likely histo - started on itraconazole 3. Chest pain, improved, non-cardiac in nature. Cardiology followup 4. Hypertension. 5. Hyperlipidemia. RECOMMENDATIONS: 1. F/U on histo cultures 2. Started on itraconazole 3. Followup on infectious recs 4. Followup on Cardiology and ID recs. 5. Peripheral smear has been reviewed 6. DVT prophylaxis with heparin sq. 7. GI prophylaxis with PPI. 8. Continue aspirin. 9. staff. Thank you, Gerry Winston MD Subjective Constitutional: Reports: no symptoms HEENT: Reports: no symptoms Cardiovascular: Reports: no symptoms Respiratory: Reports: no symptoms Gastrointestinal/Abdominal: Reports: poor appetite Genitourinary: Reports: no symptoms Neurologic/Psychiatric: Reports: no symptoms Endocrine: Reports: no symptoms Hematologic/Lymphatic: Reports: anemia Allergies: Coded Allergies: No Known Allergies (Unverified , 05/24/16) Subjective stable, no complaints, on itraconazole Objective Last 24 Hour Vital Signs Date Time Temp Pulse Resp B/P Pulse Ox O2 Delivery O2 Flow Rate FiO2 06/04/16 08:00 97.2 78 18 132/86 98 Room Air 06/04/16 04:00 97.9 75 18 138/92 97 Room Air 06/04/16 00:00 97.7 76 18 128/75 95 Room Air 06/03/16 20:00 97.7 89 18 123/79 96 Room Air 06/03/16 16:39 97.5 82 20 132/81 Room Air Intake and Output 06/03/16 06/04/16 19:00 07:00 Intake Total 500 ml 800 ml Balance 500 ml 800 ml Intake Oral 500 ml 800 ml # Voids 3 6 # Bowel Movements 3 Height (Feet): 5 Height (Inches): 9.00 Weight (Pounds): 180 General Appearance: no apparent distress EENT: TMs normal Neck: supple Cardiovascular: no gallop/murmur Respiratory/Chest: lungs clear Abdomen: normal bowel sounds Extremities: non-tender Edema: 1+ Leg (L), 1+ Leg (R) Edema: mild edema Neurologic: alert Skin: warm/dry Gerry Winston Jun 04, 2016 12:47
--- NOTE | 2016-06-04 14:35 | Diagnostic Imaging Report ---
Indication: Cough Technique: XRAY CHEST 1 V Comparison: None Findings: The cardiomediastinal silhouette is within normal limits. There is no focal consolidation, pneumothorax or pleural effusion. Osseous structures demonstrate no acute abnormality. Impression: No acute cardiopulmonary disease.
--- NOTE | 2016-06-04 14:37 | Diagnostic Imaging Report ---
Clinical Indication: Chest pain, followup of cavitary lesion Technique: IV administration nonionic contrast. Spiral acquisition obtained through the chest. Multiplanar reconstructions generated. Total dose length product and 79 mGycm. CTDIvol(s) 8, 73, 25 mGy Comparison: Chest CT angiogram dated 05/24/2016 Findings: Previously demonstrated left upper lobe cavitary lesion is much more poorly defined, measures approximately 2.3 cm diameter, is somewhat irregular, and less dense. Previously demonstrated central cavity is no longer evident. Previously demonstrated consolidation in the anterior superior right middle lobe has increased in size since the previous study. This area now measures approximately 3.2 x 2.6 cm. Previously demonstrated opacity with central cavitation in the lateral right lower lobe appears slightly larger, currently 17 mm long axis dimension, previously 13 mm. Previously demonstrated anterior inferior right lower lobe lesion as increased in size, currently measuring 17 mm long axis dimension, previously 9 mm. This again does not demonstrate central cavitation. No new parenchymal opacities are demonstrated. No effusions. No congestion. Previously demonstrated generalized upper lobe groundglass opacity is no longer evident. The heart size is normal. There is no evidence of pericardial effusion. No mediastinal or hilar mass or adenopathy. No axillary or chest wall mass or adenopathy. The bones are unremarkable. The included upper abdominal anatomy demonstrates diffuse hepatic low attenuation, consistent with fatty change, with areas of focal sparing adjacent to the gallbladder fossa. Again demonstrated is a right adrenal myelolipoma. Impression: Previously demonstrated left upper lobe cavitary lesion appears to have decreased in extent, and is no longer cavitating. However, all 3 lesions previously described in the right lung have increased considerably in size, consistent with enlarging inflammatory lesions. No new parenchymal opacities Previously demonstrated groundglass opacification of the bilateral upper lobes has resolved. This may have been at least in part due to respiratory motion artifact Fatty liver, with areas of focal sparing, also previously reported Right adrenal myelolipoma, also previously reported The CT scanner at [facility] is accredited by the [employer] and the scans are performed using protocols designed to limit radiation exposure to as low as reasonably achievable to attain images of sufficient resolution adequate for diagnostic evaluation.
--- NOTE | 2016-06-04 15:18 | General Progress Note ---
Assessment/Plan Problem List: (1) Chest pain ICD Codes: R07.9 - Chest pain, unspecified SNOMED: [id number] Qualifiers: Qualified Codes: R07.9 - Chest pain, unspecified (2) Pleurisy ICD Codes: R09.1 - Pleurisy SNOMED: [id number], [id number] Status: progressing Assessment/Plan pna improving treatment per pulmonary and id afebrile clinically improving needs clearance from public health Subjective ROS Limited/Unobtainable: Yes Allergies: Coded Allergies: No Known Allergies (Unverified , 05/24/16) Objective Last 24 Hour Vital Signs Date Time Temp Pulse Resp B/P Pulse Ox O2 Delivery O2 Flow Rate FiO2 06/04/16 08:00 97.2 78 18 132/86 98 Room Air 06/04/16 04:00 97.9 75 18 138/92 97 Room Air 06/04/16 00:00 97.7 76 18 128/75 95 Room Air 06/03/16 20:00 97.7 89 18 123/79 96 Room Air 06/03/16 16:39 97.5 82 20 132/81 Room Air Intake and Output 06/03/16 06/04/16 19:00 07:00 Intake Total 500 ml 800 ml Balance 500 ml 800 ml Intake Oral 500 ml 800 ml # Voids 3 6 # Bowel Movements 3 Height (Feet): 5 Height (Inches): 9.00 Weight (Pounds): 180 EENT: PERRL/EOMI Cardiovascular: normal rate Respiratory/Chest: lungs clear Abdomen: soft Jesse Dean MD Jun 04, 2016 15:18
--- NOTE | 2016-06-04 15:32 | Cardiac Electrophysiology PN ---
Assessment/Plan Assessment/Plan 1. Sinus tachycardia . No atrial fibrillation or any other cardiac arrhythmia.Due to patient's underlying pulmonary process.Resolved 2. Right upper chest pain due to Cavitary lung disease, rule out mycobacterium infection versus fungal infection versus metastasis with malignant process.Still in isolation for cavitary lesion on chest CT. ID following. 4th sputum still pending. HEIDI RN Subjective Subjective Still in respiratory isolation awaiting 4rd sputum at request of department of health.Comfortable in NAD. .No events overnight. Objective Last 24 Hour Vital Signs Date Time Temp Pulse Resp B/P Pulse Ox O2 Delivery O2 Flow Rate FiO2 06/04/16 08:00 97.2 78 18 132/86 98 Room Air 06/04/16 04:00 97.9 75 18 138/92 97 Room Air 06/04/16 00:00 97.7 76 18 128/75 95 Room Air 06/03/16 20:00 97.7 89 18 123/79 96 Room Air 06/03/16 16:39 97.5 82 20 132/81 Room Air Intake and Output 06/03/16 06/04/16 19:00 07:00 Intake Total 500 ml 800 ml Balance 500 ml 800 ml Intake Oral 500 ml 800 ml # Voids 3 6 # Bowel Movements 3 Current Medications Medications (Trade) Dose Ordered Sig/Keila Route PRN Reason Start Time Stop Time Status Last Admin Dose Admin Acetaminophen (Tylenol) 650 mg Q4H PRN ORAL FEVER 05/29/16 18:00 06/28/16 17:59 Aspirin (ASA) 162 mg DAILY ORAL 05/30/16 09:00 06/29/16 08:59 06/04/16 10:36 Fish Oil (Fish Oil) 1,000 mg DAILY ORAL 05/30/16 09:00 06/29/16 08:59 06/04/16 10:36 Heparin Sodium (Porcine) (Heparin 5000 units/ml) 5,000 units EVERY 12 HOURS SUBQ 05/29/16 21:00 06/28/16 20:59 06/04/16 10:39 Itraconazole (Sporanox) 200 mg EVERY 12 HOURS ORAL 06/06/16 09:00 08/31/16 08:59 Itraconazole (Sporanox) 200 mg Q8HR ORAL 06/02/16 22:00 06/05/16 14:01 06/04/16 13:52 Morphine Sulfate (Morphine Sulfate) 2 mg Q4H PRN IVP severe Pain (Pain Scale 7-10) 05/29/16 18:00 06/05/16 17:59 Nitroglycerin (Ntg) 0.4 mg Q5M x 3 doses PRN SL Prn Chest Pain 05/29/16 14:45 06/28/16 14:44 Ondansetron HCl (Zofran) 4 mg Q6H PRN IVP Nausea & Vomiting 05/29/16 16:00 06/28/16 15:59 Pantoprazole (Protonix) 40 mg ACBREAKFAST ORAL 05/30/16 06:30 06/29/16 06:29 06/04/16 05:54 Polyethylene Glycol (Miralax) 17 gm DAILYPRN PRN ORAL Constipation 05/29/16 22:00 06/28/16 21:59 Temazepam (Restoril) 15 mg HSPRN PRN ORAL Insomnia 05/29/16 22:00 06/05/16 21:59 Microbiology Date/Time Source Procedure Growth Status 06/03/16 05:30 Sputum Expectorated AFB Specimen Processing Tissue - Final Resulted 06/03/16 05:30 Sputum Expectorated Acid Fast Bacilli Smear - Final Resulted 06/03/16 05:30 Sputum Expectorated Acid Fast Bacilli Culture Pending Resulted Objective HEAD AND NECK: No JVD. LUNGS: Decreased breath sounds on the right side. CARDIOVASCULAR: Regular S1 and S2 with no gallop or murmur.Tachycardic. ABDOMEN: Soft and nontender. EXTREMITIES: No pitting edema. JOHN PENA Jun 04, 2016 15:32
[2016-06-04 16:00] VITALS: BP 131/84
--- NOTE | 2016-06-04 18:36 | Infectious Diseases Prog Note ---
Assessment/Plan Problems: (1) Histoplasmosis pneumonia Assessment & Plan: with positive serology titer , and cavitary lung lesions due to praying in a cave, continue itraconazole for three months , monitor liver function test (2) Cavitary lung disease Assessment & Plan: no evidence of TB with negative smear x 3 and negative PPD test , and negative T spot, and negative TB PCR, most likely due to histoplasmosis , will treat with itraconazol for three months, recommend to repeat CT scan of the chest in 6 weeks to confirm the improvement of his lung lesions. may remove from respiratory isolation , other fungal serology are negative , HIV test is negative , Echo didn't show any valvular vegetation to suggest septic emboli , and blood culture remained negative . (3) Pleurisy Assessment & Plan: due to the above, continue pain management as per primary Subjective Constitutional: Reports: no symptoms HEENT: Reports: no symptoms Respiratory: Reports: no symptoms Breasts: Reports: no symptoms Cardiovascular: Reports: no symptoms Gastrointestinal/Abdominal: Reports: no symptoms Genitourinary: Reports: no symptoms Neurologic: Reports: no symptoms Psychiatric: Reports: no symptoms Skin: Reports: no symptoms Allergies: Coded Allergies: No Known Allergies (Unverified , 05/24/16) Subjective he was doing ok, denied any fever or chills, no nausea or vomiting Objective Vital Signs Last 24 Hour Vital Signs Date Time Temp Pulse Resp B/P Pulse Ox O2 Delivery O2 Flow Rate FiO2 06/04/16 16:00 97.4 79 18 131/84 96 Room Air 06/04/16 12:00 97.0 74 18 130/84 98 Room Air 06/04/16 08:00 97.2 78 18 132/86 98 Room Air 06/04/16 04:00 97.9 75 18 138/92 97 Room Air 06/04/16 00:00 97.7 76 18 128/75 95 Room Air 06/03/16 20:00 97.7 89 18 123/79 96 Room Air Height (Feet): 5 Height (Inches): 9.00 Weight (Pounds): 180 General Appearance: WD/WN, no acute distress HEENT: normocephalic, atraumatic, anicteric, PERRL Respiratory/Chest: chest wall non-tender, lungs clear, normal breath sounds, no respiratory distress, no accessory muscle use Cardiovascular: normal peripheral pulses, regular rhythm, no gallop/murmur Abdomen: normal bowel sounds, soft, non tender, no organomegaly, non distended , no mass, no scars Extremities: no cyanosis, no clubbing Skin: no rash, no lesions, no ulcers Microbiology Date/Time Source Procedure Growth Status 06/03/16 05:30 Sputum Expectorated AFB Specimen Processing Tissue - Final Resulted 06/03/16 05:30 Sputum Expectorated Acid Fast Bacilli Smear - Final Resulted 06/03/16 05:30 Sputum Expectorated Acid Fast Bacilli Culture Pending Resulted Current Medications Medications (Trade) Dose Ordered Sig/Keila Route PRN Reason Start Time Stop Time Status Last Admin Dose Admin Acetaminophen (Tylenol) 650 mg Q4H PRN ORAL FEVER 05/29/16 18:00 06/28/16 17:59 Aspirin (ASA) 162 mg DAILY ORAL 05/30/16 09:00 06/29/16 08:59 06/04/16 10:36 Fish Oil (Fish Oil) 1,000 mg DAILY ORAL 05/30/16 09:00 06/29/16 08:59 06/04/16 10:36 Heparin Sodium (Porcine) (Heparin 5000 units/ml) 5,000 units EVERY 12 HOURS SUBQ 05/29/16 21:00 06/28/16 20:59 06/04/16 10:39 Itraconazole (Sporanox) 200 mg EVERY 12 HOURS ORAL 06/06/16 09:00 08/31/16 08:59 Itraconazole (Sporanox) 200 mg Q8HR ORAL 06/02/16 22:00 06/05/16 14:01 06/04/16 13:52 Morphine Sulfate (Morphine Sulfate) 2 mg Q4H PRN IVP severe Pain (Pain Scale 7-10) 05/29/16 18:00 06/05/16 17:59 Nitroglycerin (Ntg) 0.4 mg Q5M x 3 doses PRN SL Prn Chest Pain 05/29/16 14:45 06/28/16 14:44 Ondansetron HCl (Zofran) 4 mg Q6H PRN IVP Nausea & Vomiting 05/29/16 16:00 06/28/16 15:59 Pantoprazole (Protonix) 40 mg ACBREAKFAST ORAL 05/30/16 06:30 06/29/16 06:29 06/04/16 05:54 Polyethylene Glycol (Miralax) 17 gm DAILYPRN PRN ORAL Constipation 05/29/16 22:00 06/28/16 21:59 Temazepam (Restoril) 15 mg HSPRN PRN ORAL Insomnia 05/29/16 22:00 06/05/16 21:59 Erin Navarrete M.D. Jun 04, 2016 18:36
[2016-06-04 20:00] VITALS: BP 145/93
[2016-06-04 21:12] LABS: BILIRUBIN,DIRECT 0.1 mg/dL (0.1-0.3); TOTAL PROTEIN 6.7 g/dL (6.6-8.7)
[2016-06-05] VITALS: BP 128/89
[2016-06-05 04:00] VITALS: BP 131/89
[2016-06-05 08:00] VITALS: BP 144/76
[2016-06-05] MEDS: Aspirin Baby 81mg ORAL SCH (09:32)
[2016-06-05] MEDS: Heparin 5000 units/ml inj SUBQ SCH ×2 (09:37→21:32)
--- NOTE | 2016-06-05 10:31 | General Progress Note ---
Assessment/Plan Assessment/Plan ASSESSMENT: 1. Monocytosis. AFB negative, likely 2/2 histoplasmosis 2. Pulmonary nodules. Likely histo - started on itraconazole 3. Chest pain, improved, non-cardiac in nature. Cardiology followup 4. Hypertension. 5. Hyperlipidemia. RECOMMENDATIONS: 1. F/U on histo cultures 2. Started on itraconazole 3. Followup on infectious recs 4. Followup on Cardiology and ID recs. 5. Peripheral smear reviewed 6. DVT ppx with heparin sq. 7. GI prophylaxis with PPI. 8. Continue aspirin. 9. staff. Thank you, Brigid Winston MD Subjective Constitutional: Reports: no symptoms HEENT: Reports: no symptoms Cardiovascular: Reports: no symptoms Respiratory: Reports: no symptoms Gastrointestinal/Abdominal: Reports: no symptoms Genitourinary: Reports: no symptoms Neurologic/Psychiatric: Reports: no symptoms Endocrine: Reports: no symptoms Hematologic/Lymphatic: Reports: anemia Allergies: Coded Allergies: No Known Allergies (Unverified , 05/24/16) Subjective stable, no fevers, no bleeding Objective Last 24 Hour Vital Signs Date Time Temp Pulse Resp B/P Pulse Ox O2 Delivery O2 Flow Rate FiO2 06/05/16 08:00 97.2 85 20 144/76 96 Room Air 06/05/16 04:00 97.2 57 20 131/89 95 Room Air 06/05/16 00:00 97.7 83 18 128/89 94 Room Air 06/04/16 20:00 96.4 85 18 145/93 99 Room Air 06/04/16 16:00 97.4 79 18 131/84 96 Room Air 06/04/16 12:00 97.0 74 18 130/84 98 Room Air Intake and Output 06/04/16 06/05/16 19:00 07:00 Intake Total 600 ml Balance 600 ml Intake Oral 600 ml # Voids 3 Laboratory Tests 06/04/16 18:33: Total Bilirubin 0.2, Direct Bilirubin 0.1, Aspartate Amino Transf (AST/SGOT) 19 , Alanine Aminotransferase (ALT/SGPT) 24, Alkaline Phosphatase 69, Total Protein 6.7, Albumin 4.1 Height (Feet): 5 Height (Inches): 9.00 Weight (Pounds): 180 General Appearance: alert EENT: TMs normal Neck: supple Cardiovascular: regular rhythm Respiratory/Chest: normal breath sounds Abdomen: normal bowel sounds Extremities: non-tender BRIGID WINSTON Jun 05, 2016 10:31
[2016-06-05 12:00] VITALS: BP 145/85
[2016-06-05 16:00] VITALS: BP 131/88
[2016-06-05 20:00] VITALS: BP 120/64
[2016-06-06] VITALS: BP 134/89
[2016-06-06 04:00] VITALS: BP 127/74
[2016-06-06 08:00] VITALS: BP 137/89
[2016-06-06] MEDS: Heparin 5000 units/ml inj SUBQ SCH ×2 (10:03→20:38)
[2016-06-06] MEDS: Aspirin Baby 81mg ORAL SCH (10:05)
--- NOTE | 2016-06-06 11:46 | General Progress Note ---
Assessment/Plan Problem List: (1) Chest pain ICD Codes: R07.9 - Chest pain, unspecified SNOMED: 14828596 Qualifiers: Qualified Codes: R07.9 - Chest pain, unspecified (2) Pleurisy ICD Codes: R09.1 - Pleurisy SNOMED: 636914020, 44792168 (3) Septic embolism ICD Codes: I26.90 - Septic pulmonary embolism without acute cor pulmonale SNOMED: 450115458, 36502434 (4) Cavitary lung disease ICD Codes: J98.4 - Other disorders of lung SNOMED: 76849061 (5) Histoplasmosis pneumonia ICD Codes: B39.2 - Pulmonary histoplasmosis capsulati, unspecified SNOMED: 278034731 Status: progressing Assessment/Plan afebrile vitals stable pna is improving needs clearance from public health Subjective ROS Limited/Unobtainable: Yes Allergies: Coded Allergies: No Known Allergies (Unverified , 05/24/16) Objective Last 24 Hour Vital Signs Date Time Temp Pulse Resp B/P Pulse Ox O2 Delivery O2 Flow Rate FiO2 06/06/16 08:00 97.0 84 18 137/89 98 Room Air 06/06/16 04:00 97.6 70 17 127/74 100 Room Air 06/06/16 00:00 97.0 74 17 134/89 95 Room Air 06/05/16 20:00 97.6 87 16 120/64 100 Room Air 06/05/16 16:00 97.7 79 20 131/88 97 Room Air 06/05/16 12:00 96.9 85 20 145/85 94 Room Air Intake and Output 06/05/16 06/06/16 19:00 07:00 Intake Total 350 ml Balance 350 ml Intake Oral 350 ml # Voids 3 4 Height (Feet): 5 Height (Inches): 9.00 Weight (Pounds): 180 Respiratory/Chest: lungs clear Abdomen: soft Jesse Dean MD Jun 06, 2016 11:46
--- NOTE | 2016-06-06 11:48 | General Progress Note ---
Assessment/Plan Assessment/Plan ASSESSMENT: 1. Eosinophilia. AFB negative, likely 2/2 histoplasmosis 2. Pulmonary nodules. Likely histo - continuing itraconazole, left lesion better, but right lung lesions slightly larger 3. Chest pain, improved, non-cardiac in nature. Cardiology followup 4. Hypertension. 5. Hyperlipidemia. RECOMMENDATIONS: 1. F/U on histo cultures 2. Continuing itraconazole rx 3. Followup on infectious recs 4. Followup on Cardiology and ID recs. 5. Peripheral smear has been reviewed 6. DVT prophylaxis with heparin sq. 7. GI prophylaxis with PPI. 8. Continue ASA 9. staff. Thank you, Gerry Winston MD Subjective Constitutional: Reports: no symptoms HEENT: Reports: no symptoms Cardiovascular: Reports: no symptoms Respiratory: Reports: no symptoms Gastrointestinal/Abdominal: Reports: no symptoms Genitourinary: Reports: no symptoms Neurologic/Psychiatric: Reports: no symptoms Endocrine: Reports: no symptoms Hematologic/Lymphatic: Reports: anemia Allergies: Coded Allergies: No Known Allergies (Unverified , 05/24/16) Subjective stable, no complaints today Objective Last 24 Hour Vital Signs Date Time Temp Pulse Resp B/P Pulse Ox O2 Delivery O2 Flow Rate FiO2 06/06/16 08:00 97.0 84 18 137/89 98 Room Air 06/06/16 04:00 97.6 70 17 127/74 100 Room Air 06/06/16 00:00 97.0 74 17 134/89 95 Room Air 06/05/16 20:00 97.6 87 16 120/64 100 Room Air 06/05/16 16:00 97.7 79 20 131/88 97 Room Air 06/05/16 12:00 96.9 85 20 145/85 94 Room Air Intake and Output 06/05/16 06/06/16 19:00 07:00 Intake Total 350 ml Balance 350 ml Intake Oral 350 ml # Voids 3 4 Height (Feet): 5 Height (Inches): 9.00 Weight (Pounds): 180 General Appearance: no apparent distress EENT: TMs normal Neck: supple Cardiovascular: regular rhythm Respiratory/Chest: normal breath sounds Abdomen: normal bowel sounds Extremities: non-tender Edema: 1+ Leg (L), 1+ Leg (R) Edema: mild edema Neurologic: alert Skin: warm/dry Gerry Winston Jun 06, 2016 11:48
[2016-06-06 12:00] VITALS: BP 138/80
--- NOTE | 2016-06-06 15:29 | Infectious Diseases Prog Note ---
Assessment/Plan Problems: (1) Histoplasmosis pneumonia Assessment & Plan: with positive serology titer , and cavitary lung lesions due to praying in a cave, continue itraconazole for three months , monitor liver function test (2) Cavitary lung disease Assessment & Plan: no evidence of TB with negative smear x 3 and negative PPD test , and negative T spot, and negative TB PCR, most likely due to histoplasmosis , will treat with itraconazol for three months, recommend to repeat CT scan of the chest in 6 weeks to confirm the improvement of his lung lesions. may remove from respiratory isolation , other fungal serology are negative , HIV test is negative , Echo didn't show any valvular vegetation to suggest septic emboli , and blood culture remained negative . await sputum PCR for clearance from [facility]. (3) Pleurisy Assessment & Plan: due to the above, continue pain management as per primary Subjective Constitutional: Reports: no symptoms HEENT: Reports: no symptoms Respiratory: Reports: no symptoms Breasts: Reports: no symptoms Cardiovascular: Reports: no symptoms Gastrointestinal/Abdominal: Reports: no symptoms Genitourinary: Reports: no symptoms Neurologic: Reports: no symptoms Psychiatric: Reports: no symptoms Skin: Reports: no symptoms Endocrine: Reports: no symptoms Allergies: Coded Allergies: No Known Allergies (Unverified , 05/24/16) Subjective he was doing ok, denied any fever or chills, no nausea or vomiting Objective Vital Signs Last 24 Hour Vital Signs Date Time Temp Pulse Resp B/P Pulse Ox O2 Delivery O2 Flow Rate FiO2 06/06/16 12:00 97.3 83 18 138/80 98 Room Air 06/06/16 08:00 97.0 84 18 137/89 98 Room Air 06/06/16 04:00 97.6 70 17 127/74 100 Room Air 06/06/16 00:00 97.0 74 17 134/89 95 Room Air 06/05/16 20:00 97.6 87 16 120/64 100 Room Air 06/05/16 16:00 97.7 79 20 131/88 97 Room Air Height (Feet): 5 Height (Inches): 9.00 Weight (Pounds): 180 General Appearance: WD/WN, no acute distress HEENT: normocephalic, atraumatic, anicteric, mucous membranes moist Respiratory/Chest: chest wall non-tender, lungs clear, normal breath sounds, no respiratory distress, no accessory muscle use Cardiovascular: normal peripheral pulses, normal rate, regular rhythm, no gallop/murmur Abdomen: normal bowel sounds, soft, non tender, no organomegaly, non distended , no mass, no scars Extremities: no cyanosis, no clubbing Skin: no rash, no lesions, no ulcers Current Medications Medications (Trade) Dose Ordered Sig/Keila Route PRN Reason Start Time Stop Time Status Last Admin Dose Admin Acetaminophen (Tylenol) 650 mg Q4H PRN ORAL FEVER 05/29/16 18:00 06/28/16 17:59 Aspirin (ASA) 162 mg DAILY ORAL 05/30/16 09:00 06/29/16 08:59 06/06/16 10:05 Fish Oil (Fish Oil) 1,000 mg DAILY ORAL 05/30/16 09:00 06/29/16 08:59 06/06/16 10:05 Heparin Sodium (Porcine) (Heparin 5000 units/ml) 5,000 units EVERY 12 HOURS SUBQ 05/29/16 21:00 06/28/16 20:59 06/06/16 10:03 Itraconazole (Sporanox) 200 mg EVERY 12 HOURS ORAL 06/06/16 09:00 08/31/16 08:59 06/06/16 10:05 Nitroglycerin (Ntg) 0.4 mg Q5M x 3 doses PRN SL Prn Chest Pain 05/29/16 14:45 06/28/16 14:44 Ondansetron HCl (Zofran) 4 mg Q6H PRN IVP Nausea & Vomiting 05/29/16 16:00 06/28/16 15:59 Pantoprazole (Protonix) 40 mg ACBREAKFAST ORAL 05/30/16 06:30 06/29/16 06:29 06/06/16 06:20 Polyethylene Glycol (Miralax) 17 gm DAILYPRN PRN ORAL Constipation 05/29/16 22:00 06/28/16 21:59 Erin Navarrete M.D. Jun 06, 2016 15:29
[2016-06-06 15:42] VITALS: BP 126/71
--- NOTE | 2016-06-06 17:24 | Cardiac Electrophysiology PN ---
Assessment/Plan Assessment/Plan 1. Sinus tachycardia . No atrial fibrillation or any other cardiac arrhythmia.Resolved 2. Right upper chest pain due to Cavitary lung disease due to Histoplasmosis pneumonia with positive serology titer , and cavitary lung lesions due to praying in a cave, on itraconazole for three months. ruled out for TB DW RN Subjective Subjective Comfortable in NAD. No chest pain or SOB..No events overnight. Objective Last 24 Hour Vital Signs Date Time Temp Pulse Resp B/P Pulse Ox O2 Delivery O2 Flow Rate FiO2 06/06/16 15:42 97.0 82 16 126/71 97 Room Air 06/06/16 12:00 97.3 83 18 138/80 98 Room Air 06/06/16 08:00 97.0 84 18 137/89 98 Room Air 06/06/16 04:00 97.6 70 17 127/74 100 Room Air 06/06/16 00:00 97.0 74 17 134/89 95 Room Air 06/05/16 20:00 97.6 87 16 120/64 100 Room Air Intake and Output 06/05/16 06/06/16 19:00 07:00 Intake Total 350 ml Balance 350 ml Intake Oral 350 ml # Voids 3 4 Current Medications Medications (Trade) Dose Ordered Sig/Keila Route PRN Reason Start Time Stop Time Status Last Admin Dose Admin Acetaminophen (Tylenol) 650 mg Q4H PRN ORAL FEVER 05/29/16 18:00 06/28/16 17:59 Aspirin (ASA) 162 mg DAILY ORAL 05/30/16 09:00 06/29/16 08:59 06/06/16 10:05 Fish Oil (Fish Oil) 1,000 mg DAILY ORAL 05/30/16 09:00 06/29/16 08:59 06/06/16 10:05 Heparin Sodium (Porcine) (Heparin 5000 units/ml) 5,000 units EVERY 12 HOURS SUBQ 05/29/16 21:00 06/28/16 20:59 06/06/16 10:03 Itraconazole (Sporanox) 200 mg EVERY 12 HOURS ORAL 06/06/16 09:00 08/31/16 08:59 06/06/16 10:05 Nitroglycerin (Ntg) 0.4 mg Q5M x 3 doses PRN SL Prn Chest Pain 05/29/16 14:45 06/28/16 14:44 Ondansetron HCl (Zofran) 4 mg Q6H PRN IVP Nausea & Vomiting 05/29/16 16:00 06/28/16 15:59 Pantoprazole (Protonix) 40 mg ACBREAKFAST ORAL 05/30/16 06:30 06/29/16 06:29 06/06/16 06:20 Polyethylene Glycol (Miralax) 17 gm DAILYPRN PRN ORAL Constipation 05/29/16 22:00 06/28/16 21:59 Objective HEAD AND NECK: No JVD. LUNGS: Decreased breath sounds on the right side. CARDIOVASCULAR: Regular S1 and S2 with no gallop or murmur.Tachycardic. ABDOMEN: Soft and nontender. EXTREMITIES: No pitting edema. JOHN PENA Jun 06, 2016 17:24
[2016-06-06 20:00] VITALS: BP 124/68
[2016-06-07 04:00] VITALS: BP 147/95
[2016-06-07] MEDS: Heparin 5000 units/ml inj SUBQ SCH ×2 (08:19→20:57)
[2016-06-07] MEDS: Aspirin Baby 81mg ORAL SCH (08:21)
[2016-06-07 08:25] VITALS: BP 145/94
--- NOTE | 2016-06-07 09:38 | General Progress Note ---
Assessment/Plan Assessment/Plan ASSESSMENT: 1. Eosinophilia. AFB negative, likely 2/2 histoplasmosis 2. Pulmonary nodules. 2/2 histo - continuing itraconazole, left lesion better, but right lung lesions slightly larger 3. Chest pain, improved, non-cardiac in nature. Cardiology followup 4. Hypertension. 5. Hyperlipidemia. RECOMMENDATIONS: 1. F/U on histo cultures 2. Continuing itraconazole rx 3. Monitoring coagulopathy 4. Followup on Cardiology, pulm ID recs. 5. Peripheral smear reviewed 6. DVT prophylaxis with heparin sq. 7. GI prophylaxis with PPI. 8. Continue ASA 9. DW staff. Thank you, Gerry Winston MD Subjective Constitutional: Reports: no symptoms HEENT: Reports: no symptoms Cardiovascular: Reports: no symptoms Respiratory: Reports: no symptoms Gastrointestinal/Abdominal: Reports: poor appetite Genitourinary: Reports: no symptoms Neurologic/Psychiatric: Reports: no symptoms Endocrine: Reports: no symptoms Hematologic/Lymphatic: Reports: anemia Allergies: Coded Allergies: No Known Allergies (Unverified , 05/24/16) Subjective stable, no complaints today, tolerating itra well Objective Last 24 Hour Vital Signs Date Time Temp Pulse Resp B/P Pulse Ox O2 Delivery O2 Flow Rate FiO2 06/07/16 08:25 97.3 86 19 145/94 97 Room Air 06/07/16 04:00 98.7 73 18 147/95 97 Room Air 06/06/16 20:00 98.2 74 19 124/68 100 Room Air 06/06/16 15:42 97.0 82 16 126/71 97 Room Air 06/06/16 12:00 97.3 83 18 138/80 98 Room Air Intake and Output 06/06/16 06/07/16 19:00 07:00 Intake Total 320 ml 660 ml Balance 320 ml 660 ml Intake Oral 320 ml 660 ml # Voids 3 4 # Bowel Movements 1 1 Height (Feet): 5 Height (Inches): 9.00 Weight (Pounds): 180 General Appearance: no apparent distress EENT: TMs normal Neck: supple Cardiovascular: regular rhythm Respiratory/Chest: lungs clear Abdomen: non tender Extremities: non-tender Edema: 1+ Leg (L), 1+ Leg (R) Neurologic: alert Skin: warm/dry Gerry Winston Jun 07, 2016 09:38
[2016-06-07 11:27] VITALS: BP 135/85
--- NOTE | 2016-06-07 15:07 | General Progress Note ---
Assessment/Plan Problem List: (1) Chest pain ICD Codes: R07.9 - Chest pain, unspecified SNOMED: 01804982 Qualifiers: Qualified Codes: R07.9 - Chest pain, unspecified (2) Pleurisy ICD Codes: R09.1 - Pleurisy SNOMED: 517160900, 28761970 (3) Septic embolism ICD Codes: I26.90 - Septic pulmonary embolism without acute cor pulmonale SNOMED: 985940488, 78109497 (4) Cavitary lung disease ICD Codes: J98.4 - Other disorders of lung SNOMED: 33727561 (5) Histoplasmosis pneumonia ICD Codes: B39.2 - Pulmonary histoplasmosis capsulati, unspecified SNOMED: 394708838 Status: progressing Assessment/Plan no wheezing no cp pna fungal needs clearance from public health Subjective ROS Limited/Unobtainable: Yes Constitutional: Reports: no symptoms Allergies: Coded Allergies: No Known Allergies (Unverified , 05/24/16) Objective Last 24 Hour Vital Signs Date Time Temp Pulse Resp B/P Pulse Ox O2 Delivery O2 Flow Rate FiO2 06/07/16 11:27 97.5 77 18 135/85 98 Room Air 06/07/16 08:25 97.3 86 19 145/94 97 Room Air 06/07/16 04:00 98.7 73 18 147/95 97 Room Air 06/06/16 20:00 98.2 74 19 124/68 100 Room Air 06/06/16 15:42 97.0 82 16 126/71 97 Room Air Intake and Output 06/06/16 06/07/16 18:59 06:59 Intake Total 320 ml 660 ml Balance 320 ml 660 ml Intake Oral 320 ml 660 ml # Voids 3 4 # Bowel Movements 1 1 Height (Feet): 5 Height (Inches): 9.00 Weight (Pounds): 180 EENT: PERRL/EOMI Neck: supple Cardiovascular: normal rate Respiratory/Chest: lungs clear Abdomen: soft Jesse Dean MD Jun 07, 2016 15:06
[2016-06-07 16:00] VITALS: BP 141/83
--- NOTE | 2016-06-07 17:38 | Cardiac Electrophysiology PN ---
Assessment/Plan Assessment/Plan 1. Sinus tachycardia . No atrial fibrillation or any other cardiac arrhythmia.Resolved 2. Right upper chest pain due to Cavitary lung disease due to Histoplasmosis pneumonia with positive serology titer due to praying in a cave, on itraconazole for three months. ruled out for TB DC isolation per ID DW RN Subjective Subjective Comfortable in NAD. No chest pain or SOB,. Awaiting DC isolation. Objective Last 24 Hour Vital Signs Date Time Temp Pulse Resp B/P Pulse Ox O2 Delivery O2 Flow Rate FiO2 06/07/16 16:00 96.1 95 19 141/83 97 Room Air 06/07/16 11:27 97.5 77 18 135/85 98 Room Air 06/07/16 08:25 97.3 86 19 145/94 97 Room Air 06/07/16 04:00 98.7 73 18 147/95 97 Room Air 06/06/16 20:00 98.2 74 19 124/68 100 Room Air Intake and Output 06/06/16 06/07/16 19:00 07:00 Intake Total 320 ml 660 ml Balance 320 ml 660 ml Intake Oral 320 ml 660 ml # Voids 3 4 # Bowel Movements 1 1 Current Medications Medications (Trade) Dose Ordered Sig/Keila Route PRN Reason Start Time Stop Time Status Last Admin Dose Admin Acetaminophen (Tylenol) 650 mg Q4H PRN ORAL FEVER 05/29/16 18:00 06/28/16 17:59 Aspirin (ASA) 162 mg DAILY ORAL 05/30/16 09:00 06/29/16 08:59 06/07/16 08:21 Fish Oil (Fish Oil) 1,000 mg DAILY ORAL 05/30/16 09:00 06/29/16 08:59 06/07/16 08:21 Heparin Sodium (Porcine) (Heparin 5000 units/ml) 5,000 units EVERY 12 HOURS SUBQ 05/29/16 21:00 06/28/16 20:59 06/07/16 08:19 Itraconazole (Sporanox) 200 mg EVERY 12 HOURS ORAL 06/06/16 09:00 08/31/16 08:59 06/07/16 08:20 Nitroglycerin (Ntg) 0.4 mg Q5M x 3 doses PRN SL Prn Chest Pain 05/29/16 14:45 06/28/16 14:44 Ondansetron HCl (Zofran) 4 mg Q6H PRN IVP Nausea & Vomiting 05/29/16 16:00 06/28/16 15:59 Pantoprazole (Protonix) 40 mg ACBREAKFAST ORAL 05/30/16 06:30 06/29/16 06:29 06/07/16 05:39 Polyethylene Glycol (Miralax) 17 gm DAILYPRN PRN ORAL Constipation 05/29/16 22:00 06/28/16 21:59 Objective HEAD AND NECK: No JVD. LUNGS: Decreased breath sounds on the right side. CARDIOVASCULAR: Regular S1 and S2 with no gallop or murmur.Tachycardic. ABDOMEN: Soft and nontender. EXTREMITIES: No pitting edema. JOHN PENA Jun 07, 2016 17:38
--- NOTE | 2016-06-07 17:45 | Infectious Diseases Prog Note ---
Assessment/Plan Problems: (1) Histoplasmosis pneumonia Assessment & Plan: with positive serology titer , and cavitary lung lesions due to praying in a cave, continue itraconazole for three months , monitor liver function test every week, follow up with PCP. (2) Cavitary lung disease Assessment & Plan: no evidence of TB with negative smear x 3 and negative PPD test , and negative T spot, and negative TB PCR, most likely due to histoplasmosis , will treat with itraconazol for three months, recommend to repeat CT scan of the chest in 6 weeks to confirm the improvement of his lung lesions. may remove from respiratory isolation , other fungal serology are negative , HIV test is negative , Echo didn't show any valvular vegetation to suggest septic emboli , and blood culture remained negative . await sputum PCR for clearance from [facility]. (3) Pleurisy Assessment & Plan: due to the above, continue pain management as per primary Subjective Constitutional: Reports: no symptoms HEENT: Reports: no symptoms Respiratory: Reports: no symptoms Breasts: Reports: no symptoms Cardiovascular: Reports: no symptoms Gastrointestinal/Abdominal: Reports: no symptoms Genitourinary: Reports: no symptoms Neurologic: Reports: no symptoms Psychiatric: Reports: no symptoms Skin: Reports: no symptoms Endocrine: Reports: no symptoms Hematologic: Reports: no symptoms Musculoskeletal: Reports: no symptoms Allergies: Coded Allergies: No Known Allergies (Unverified , 05/24/16) Subjective he was doing ok, denied any fever or chills, no nausea or vomiting Objective Vital Signs Last 24 Hour Vital Signs Date Time Temp Pulse Resp B/P Pulse Ox O2 Delivery O2 Flow Rate FiO2 06/07/16 16:00 96.1 95 19 141/83 97 Room Air 06/07/16 11:27 97.5 77 18 135/85 98 Room Air 06/07/16 08:25 97.3 86 19 145/94 97 Room Air 06/07/16 04:00 98.7 73 18 147/95 97 Room Air 06/06/16 20:00 98.2 74 19 124/68 100 Room Air Height (Feet): 5 Height (Inches): 9.00 Weight (Pounds): 180 General Appearance: WD/WN, no acute distress HEENT: normocephalic, atraumatic, anicteric, mucous membranes moist Respiratory/Chest: chest wall non-tender, lungs clear, normal breath sounds, no respiratory distress, no accessory muscle use Cardiovascular: normal peripheral pulses, normal rate, regular rhythm, no gallop/murmur Abdomen: normal bowel sounds, soft, non tender, no organomegaly, non distended , no mass, no scars Extremities: no cyanosis, no clubbing Skin: no rash, no lesions, no ulcers Current Medications Medications (Trade) Dose Ordered Sig/Keila Route PRN Reason Start Time Stop Time Status Last Admin Dose Admin Acetaminophen (Tylenol) 650 mg Q4H PRN ORAL FEVER 05/29/16 18:00 06/28/16 17:59 Aspirin (ASA) 162 mg DAILY ORAL 05/30/16 09:00 06/29/16 08:59 06/07/16 08:21 Fish Oil (Fish Oil) 1,000 mg DAILY ORAL 05/30/16 09:00 06/29/16 08:59 06/07/16 08:21 Heparin Sodium (Porcine) (Heparin 5000 units/ml) 5,000 units EVERY 12 HOURS SUBQ 05/29/16 21:00 06/28/16 20:59 06/07/16 08:19 Itraconazole (Sporanox) 200 mg EVERY 12 HOURS ORAL 06/06/16 09:00 08/31/16 08:59 06/07/16 08:20 Nitroglycerin (Ntg) 0.4 mg Q5M x 3 doses PRN SL Prn Chest Pain 05/29/16 14:45 06/28/16 14:44 Ondansetron HCl (Zofran) 4 mg Q6H PRN IVP Nausea & Vomiting 05/29/16 16:00 06/28/16 15:59 Pantoprazole (Protonix) 40 mg ACBREAKFAST ORAL 05/30/16 06:30 06/29/16 06:29 06/07/16 05:39 Polyethylene Glycol (Miralax) 17 gm DAILYPRN PRN ORAL Constipation 05/29/16 22:00 06/28/16 21:59 Erin Navarrete M.D. Jun 07, 2016 17:45
--- NOTE | 2016-06-07 17:50 | Pulmonology Progress Note ---
Assessment/Plan Problems: (1) Cavitary lung disease (2) Chest pain (3) Pleurisy (4) Histoplasmosis pneumonia Assessment/Plan sputum negative for afb pt stated that he goes to [facility] to pray in a cave. ( he pays 20 dollars for a night) that exposition increases the possibility of the Histoplasmosis, titer are positive 1:8 on Itraconazole OK to dc when cleared by department of Health Subjective ROS Limited/Unobtainable: No Interval Events: no new complains Allergies: Coded Allergies: No Known Allergies (Unverified , 05/24/16) Objective Last 24 Hour Vital Signs Date Time Temp Pulse Resp B/P Pulse Ox O2 Delivery O2 Flow Rate FiO2 06/07/16 16:00 96.1 95 19 141/83 97 Room Air 06/07/16 11:27 97.5 77 18 135/85 98 Room Air 06/07/16 08:25 97.3 86 19 145/94 97 Room Air 06/07/16 04:00 98.7 73 18 147/95 97 Room Air 06/06/16 20:00 98.2 74 19 124/68 100 Room Air Intake and Output 06/06/16 06/07/16 19:00 07:00 Intake Total 320 ml 660 ml Balance 320 ml 660 ml Intake Oral 320 ml 660 ml # Voids 3 4 # Bowel Movements 1 1 General Appearance: WD/WN HEENT: normocephalic Respiratory/Chest: chest wall non-tender, lungs clear Cardiovascular: normal peripheral pulses, normal rate Abdomen: normal bowel sounds, soft, non tender 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 Lymphatic: no neck adenopathy Current Medications Medications (Trade) Dose Ordered Sig/Keila Route PRN Reason Start Time Stop Time Status Last Admin Dose Admin Acetaminophen (Tylenol) 650 mg Q4H PRN ORAL FEVER 05/29/16 18:00 06/28/16 17:59 Aspirin (ASA) 162 mg DAILY ORAL 05/30/16 09:00 06/29/16 08:59 06/07/16 08:21 Fish Oil (Fish Oil) 1,000 mg DAILY ORAL 05/30/16 09:00 06/29/16 08:59 06/07/16 08:21 Heparin Sodium (Porcine) (Heparin 5000 units/ml) 5,000 units EVERY 12 HOURS SUBQ 05/29/16 21:00 06/28/16 20:59 06/07/16 08:19 Itraconazole (Sporanox) 200 mg EVERY 12 HOURS ORAL 06/06/16 09:00 08/31/16 08:59 06/07/16 08:20 Nitroglycerin (Ntg) 0.4 mg Q5M x 3 doses PRN SL Prn Chest Pain 05/29/16 14:45 06/28/16 14:44 Ondansetron HCl (Zofran) 4 mg Q6H PRN IVP Nausea & Vomiting 05/29/16 16:00 06/28/16 15:59 Pantoprazole (Protonix) 40 mg ACBREAKFAST ORAL 05/30/16 06:30 06/29/16 06:29 06/07/16 05:39 Polyethylene Glycol (Miralax) 17 gm DAILYPRN PRN ORAL Constipation 05/29/16 22:00 06/28/16 21:59 SAGAR CHRIS Jun 07, 2016 17:50
[2016-06-07 19:48] VITALS: BP 136/79
[2016-06-08] VITALS: BP 133/72
[2016-06-08 04:00] VITALS: BP 130/81
--- NOTE | 2016-06-08 05:44 | General Progress Note ---
Assessment/Plan Assessment/Plan ASSESSMENT: 1. Eosinophilia. AFB negative, likely 2/2 histoplasmosis 2. Pulmonary nodules. 2/2 histo - continuing itraconazole, left lesion better, but right lung lesions slightly larger 3. Chest pain, improved, non-cardiac in nature. Cardiology followup 4. Hypertension. 5. Hyperlipidemia. RECOMMENDATIONS: 1. F/U on histo cultures 2. Continuing itraconazole rx 3. Monitoring coagulopathy 4. Followup on Cardiology, ID, pulm ID recs. 5. Peripheral smear reviewed 6. DVT prophylaxis with heparin sq. 7. GI prophylaxis with PPI. 8. Continue ASA 9. staff. Thank you, Gerry Winston MD Subjective Constitutional: Reports: no symptoms HEENT: Reports: no symptoms Cardiovascular: Reports: no symptoms Respiratory: Reports: no symptoms Gastrointestinal/Abdominal: Reports: poor appetite Genitourinary: Reports: no symptoms Neurologic/Psychiatric: Reports: no symptoms Endocrine: Reports: no symptoms Hematologic/Lymphatic: Reports: anemia Allergies: Coded Allergies: No Known Allergies (Unverified , 05/24/16) Subjective stable, no complaints today, tolerating meds well Objective Last 24 Hour Vital Signs Date Time Temp Pulse Resp B/P Pulse Ox O2 Delivery O2 Flow Rate FiO2 06/08/16 04:00 96.8 80 18 130/81 96 Room Air 06/08/16 00:00 97.5 78 18 133/72 98 Room Air 06/07/16 19:48 96.9 80 18 136/79 96 Room Air 06/07/16 16:00 96.1 95 19 141/83 97 Room Air 06/07/16 11:27 97.5 77 18 135/85 98 Room Air 06/07/16 08:25 97.3 86 19 145/94 97 Room Air Intake and Output 06/07/16 06/08/16 18:59 06:59 Intake Total 1000 ml 660 ml Balance 1000 ml 660 ml Intake Oral 1000 ml 660 ml # Voids 4 1 # Bowel Movements 1 1 Height (Feet): 5 Height (Inches): 9.00 Weight (Pounds): 180 General Appearance: alert EENT: TMs normal Neck: supple Cardiovascular: regular rhythm Respiratory/Chest: normal breath sounds Abdomen: non tender Extremities: non-tender Edema: no edema noted Leg (L), no edema noted Leg (R) Edema: mild edema Neurologic: alert Skin: warm/dry Gerry Winston Jun 08, 2016 05:44
[2016-06-08 07:55] VITALS: BP 140/93
[2016-06-08] MEDS: Aspirin Baby 81mg ORAL SCH (08:39)
[2016-06-08] MEDS: Heparin 5000 units/ml inj SUBQ SCH ×2 (08:42→21:00)
[2016-06-08 10:32] LABS: MTB DETECTION NAA Negative (Negative); MTB PROCESSING Concentration (.)
[2016-06-08 11:51] VITALS: BP 131/85
--- NOTE | 2016-06-08 14:50 | General Progress Note ---
Assessment/Plan Problem List: (1) Chest pain ICD Codes: R07.9 - Chest pain, unspecified SNOMED: 09032906 Qualifiers: Qualified Codes: R07.9 - Chest pain, unspecified (2) Pleurisy ICD Codes: R09.1 - Pleurisy SNOMED: 328384452, 26492084 (3) Septic embolism ICD Codes: I26.90 - Septic pulmonary embolism without acute cor pulmonale SNOMED: 322537952, 01344632 (4) Cavitary lung disease ICD Codes: J98.4 - Other disorders of lung SNOMED: 89467112 (5) Histoplasmosis pneumonia ICD Codes: B39.2 - Pulmonary histoplasmosis capsulati, unspecified SNOMED: 520693968 Status: progressing Assessment/Plan afebrile pna fungal needs clearance from [facility] vitals stable Subjective ROS Limited/Unobtainable: Yes Constitutional: Reports: no symptoms Allergies: Coded Allergies: No Known Allergies (Unverified , 05/24/16) Objective Last 24 Hour Vital Signs Date Time Temp Pulse Resp B/P Pulse Ox O2 Delivery O2 Flow Rate FiO2 06/08/16 11:51 96.8 84 18 131/85 92 Room Air 06/08/16 07:55 95.5 84 20 140/93 96 Room Air 06/08/16 04:00 96.8 80 18 130/81 96 Room Air 06/08/16 00:00 97.5 78 18 133/72 98 Room Air 06/07/16 19:48 96.9 80 18 136/79 96 Room Air 06/07/16 16:00 96.1 95 19 141/83 97 Room Air Intake and Output 06/07/16 06/08/16 19:00 07:00 Intake Total 1000 ml 1080 ml Balance 1000 ml 1080 ml Intake Oral 1000 ml 1080 ml # Voids 4 3 # Bowel Movements 1 1 Height (Feet): 5 Height (Inches): 9.00 Weight (Pounds): 180 EENT: PERRL/EOMI Neck: supple Cardiovascular: normal rate Respiratory/Chest: lungs clear Abdomen: soft Jesse Dean MD Jun 08, 2016 14:50
[2016-06-08 16:00] VITALS: BP 136/81
--- NOTE | 2016-06-08 16:02 | Cardiac Electrophysiology PN ---
Assessment/Plan Assessment/Plan 1. Sinus tachycardia . No atrial fibrillation or any other cardiac arrhythmia.Resolved 2. 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 Ruled out for TB Off isolation per ID DW RN DC when OK with [facility] Subjective Subjective Comfortable in NAD. No chest pain or SOB Off isolation.Awaiting OK from [facility] for discharge. Objective Last 24 Hour Vital Signs Date Time Temp Pulse Resp B/P Pulse Ox O2 Delivery O2 Flow Rate FiO2 06/08/16 11:51 96.8 84 18 131/85 92 Room Air 06/08/16 07:55 95.5 84 20 140/93 96 Room Air 06/08/16 04:00 96.8 80 18 130/81 96 Room Air 06/08/16 00:00 97.5 78 18 133/72 98 Room Air 06/07/16 19:48 96.9 80 18 136/79 96 Room Air Intake and Output 06/07/16 06/08/16 19:00 07:00 Intake Total 1000 ml 1080 ml Balance 1000 ml 1080 ml Intake Oral 1000 ml 1080 ml # Voids 4 3 # Bowel Movements 1 1 Current Medications Medications (Trade) Dose Ordered Sig/Keila Route PRN Reason Start Time Stop Time Status Last Admin Dose Admin Acetaminophen (Tylenol) 650 mg Q4H PRN ORAL FEVER 05/29/16 18:00 06/28/16 17:59 Aspirin (ASA) 162 mg DAILY ORAL 05/30/16 09:00 06/29/16 08:59 06/08/16 08:39 Fish Oil (Fish Oil) 1,000 mg DAILY ORAL 05/30/16 09:00 06/29/16 08:59 06/08/16 08:38 Heparin Sodium (Porcine) (Heparin 5000 units/ml) 5,000 units EVERY 12 HOURS SUBQ 05/29/16 21:00 06/28/16 20:59 06/07/16 20:57 Itraconazole (Sporanox) 200 mg EVERY 12 HOURS ORAL 06/06/16 09:00 08/31/16 08:59 06/08/16 08:39 Nitroglycerin (Ntg) 0.4 mg Q5M x 3 doses PRN SL Prn Chest Pain 05/29/16 14:45 06/28/16 14:44 Ondansetron HCl (Zofran) 4 mg Q6H PRN IVP Nausea & Vomiting 05/29/16 16:00 06/28/16 15:59 Pantoprazole (Protonix) 40 mg ACBREAKFAST ORAL 05/30/16 06:30 06/29/16 06:29 06/08/16 05:40 Polyethylene Glycol (Miralax) 17 gm DAILYPRN PRN ORAL Constipation 05/29/16 22:00 06/28/16 21:59 Objective HEAD AND NECK: No JVD. LUNGS: Decreased breath sounds on the right side. CARDIOVASCULAR: Regular S1 and S2 with no gallop or murmur.Tachycardic. ABDOMEN: Soft and nontender. EXTREMITIES: No pitting edema. JOHN PENA Jun 08, 2016 16:02
--- NOTE | 2016-06-08 17:14 | Infectious Diseases Prog Note ---
Assessment/Plan Problems: (1) Histoplasmosis pneumonia Assessment & Plan: with positive serology titer , and cavitary lung lesions due to praying in a cave, continue itraconazole for three months , monitor liver function test every week, follow up with PCP. (2) Cavitary lung disease Assessment & Plan: no evidence of TB with negative smear x 3 and negative PPD test , and negative T spot, and negative TB PCR, most likely due to histoplasmosis , will treat with itraconazol for three months, recommend to repeat CT scan of the chest in 6 weeks to confirm the improvement of his lung lesions. may remove from respiratory isolation , other fungal serology are negative , HIV test is negative , Echo didn't show any valvular vegetation to suggest septic emboli , and blood culture remained negative . await sputum PCR for clearance from [facility]. (3) Pleurisy Assessment & Plan: due to the above, continue pain management as per primary Subjective Constitutional: Reports: no symptoms HEENT: Reports: no symptoms Respiratory: Reports: no symptoms Breasts: Reports: no symptoms Cardiovascular: Reports: no symptoms Gastrointestinal/Abdominal: Reports: no symptoms Genitourinary: Reports: no symptoms Neurologic: Reports: no symptoms Psychiatric: Reports: no symptoms Skin: Reports: no symptoms Allergies: Coded Allergies: No Known Allergies (Unverified , 05/24/16) Subjective he was doing ok, denied any fever or chills, no nausea or vomiting Objective Vital Signs Last 24 Hour Vital Signs Date Time Temp Pulse Resp B/P Pulse Ox O2 Delivery O2 Flow Rate FiO2 06/08/16 16:00 97.3 80 14 136/81 96 Room Air 06/08/16 11:51 96.8 84 18 131/85 92 Room Air 06/08/16 07:55 95.5 84 20 140/93 96 Room Air 06/08/16 04:00 96.8 80 18 130/81 96 Room Air 06/08/16 00:00 97.5 78 18 133/72 98 Room Air 06/07/16 19:48 96.9 80 18 136/79 96 Room Air Height (Feet): 5 Height (Inches): 9.00 Weight (Pounds): 180 General Appearance: WD/WN, no acute distress HEENT: normocephalic, atraumatic, anicteric, mucous membranes moist Respiratory/Chest: chest wall non-tender, lungs clear, normal breath sounds, no respiratory distress, no accessory muscle use Cardiovascular: normal peripheral pulses, normal rate, regular rhythm, regularly irregular Abdomen: normal bowel sounds, soft, non tender, no organomegaly, non distended , no mass, no scars Extremities: no cyanosis, no clubbing Skin: no rash, no lesions, no ulcers Current Medications Medications (Trade) Dose Ordered Sig/Keila Route PRN Reason Start Time Stop Time Status Last Admin Dose Admin Acetaminophen (Tylenol) 650 mg Q4H PRN ORAL FEVER 05/29/16 18:00 06/28/16 17:59 Aspirin (ASA) 162 mg DAILY ORAL 05/30/16 09:00 06/29/16 08:59 06/08/16 08:39 Fish Oil (Fish Oil) 1,000 mg DAILY ORAL 05/30/16 09:00 06/29/16 08:59 06/08/16 08:38 Heparin Sodium (Porcine) (Heparin 5000 units/ml) 5,000 units EVERY 12 HOURS SUBQ 05/29/16 21:00 06/28/16 20:59 06/07/16 20:57 Itraconazole (Sporanox) 200 mg EVERY 12 HOURS ORAL 06/06/16 09:00 08/31/16 08:59 06/08/16 08:39 Nitroglycerin (Ntg) 0.4 mg Q5M x 3 doses PRN SL Prn Chest Pain 05/29/16 14:45 06/28/16 14:44 Ondansetron HCl (Zofran) 4 mg Q6H PRN IVP Nausea & Vomiting 05/29/16 16:00 06/28/16 15:59 Pantoprazole (Protonix) 40 mg ACBREAKFAST ORAL 05/30/16 06:30 06/29/16 06:29 06/08/16 05:40 Polyethylene Glycol (Miralax) 17 gm DAILYPRN PRN ORAL Constipation 05/29/16 22:00 06/28/16 21:59 Erin Navarrete M.D. Jun 08, 2016 17:14
[2016-06-08 20:00] VITALS: BP 137/55
[2016-06-09] VITALS: BP 133/79
[2016-06-09 04:00] VITALS: BP 129/77
[2016-06-09 08:03] VITALS: BP 140/79
[2016-06-09] MEDS: Aspirin Baby 81mg ORAL SCH (09:09)
[2016-06-09] MEDS: Heparin 5000 units/ml inj SUBQ SCH ×2 (09:13→21:00)
[2016-06-09 11:35] VITALS: BP 144/84
--- NOTE | 2016-06-09 12:51 | General Progress Note ---
Assessment/Plan Problem List: (1) Chest pain ICD Codes: R07.9 - Chest pain, unspecified SNOMED: 11545084 Qualifiers: Qualified Codes: R07.9 - Chest pain, unspecified (2) Pleurisy ICD Codes: R09.1 - Pleurisy SNOMED: 489879813, 82745407 (3) Septic embolism ICD Codes: I26.90 - Septic pulmonary embolism without acute cor pulmonale SNOMED: 500964791, 57695567 (4) Cavitary lung disease ICD Codes: J98.4 - Other disorders of lung SNOMED: 44529129 (5) Histoplasmosis pneumonia ICD Codes: B39.2 - Pulmonary histoplasmosis capsulati, unspecified SNOMED: 563034447 Status: progressing Assessment/Plan afebrile pna fungal needs clearance from [facility] vitals stable afebrile isolation and no bleeding Subjective ROS Limited/Unobtainable: Yes Allergies: Coded Allergies: No Known Allergies (Unverified , 05/24/16) Objective Last 24 Hour Vital Signs Date Time Temp Pulse Resp B/P Pulse Ox O2 Delivery O2 Flow Rate FiO2 06/09/16 11:35 97.9 99 18 144/84 96 Room Air 06/09/16 08:03 97.7 108 19 140/79 97 Room Air 06/09/16 04:07 97.2 06/09/16 04:00 97.5 95 16 129/77 99 Room Air 06/09/16 00:00 97.2 79 19 133/79 98 Room Air 06/08/16 20:00 97.3 57 20 137/55 97 Room Air 06/08/16 16:00 97.3 80 14 136/81 96 Room Air Intake and Output 06/08/16 06/09/16 19:00 07:00 Intake Total 600 ml 360 ml Balance 600 ml 360 ml Intake Oral 600 ml 360 ml # Voids 3 3 # Bowel Movements 2 2 Height (Feet): 5 Height (Inches): 9.00 Weight (Pounds): 180 EENT: PERRL/EOMI Neck: supple Cardiovascular: normal peripheral pulses Respiratory/Chest: lungs clear Jesse Dean MD Jun 09, 2016 12:51
[2016-06-09 16:00] VITALS: BP 130/102
--- NOTE | 2016-06-09 16:51 | General Progress Note ---
Assessment/Plan Assessment/Plan ASSESSMENT: 1. Eosinophilia. AFB negative, likely 2/2 histoplasmosis 2. Pulmonary nodules. 2/2 histo - continuing itraconazole, left lesion better, but right lung lesions slightly larger 3. Chest pain, improved, non-cardiac in nature. Cardiology followup 4. Hypertension. 5. Hyperlipidemia. RECOMMENDATIONS: 1. F/U on histo cultures 2. Continuing itraconazole rx 3. Monitoring coagulopathy 4. Followup on Cardiology, ID, pulm ID recs. 5. Peripheral smear reviewed 6. DVT prophylaxis with heparin sq. 7. GI prophylaxis with PPI. 8. Awaiting public health clearance 9. staff. Thank you, Gerry Winston MD Subjective Constitutional: Reports: no symptoms HEENT: Reports: no symptoms Cardiovascular: Reports: no symptoms Respiratory: Reports: no symptoms Gastrointestinal/Abdominal: Reports: poor appetite Genitourinary: Reports: no symptoms Neurologic/Psychiatric: Reports: no symptoms Endocrine: Reports: no symptoms Hematologic/Lymphatic: Reports: anemia Allergies: Coded Allergies: No Known Allergies (Unverified , 05/24/16) Subjective stable, no complaints today, no bleeding Objective Last 24 Hour Vital Signs Date Time Temp Pulse Resp B/P Pulse Ox O2 Delivery O2 Flow Rate FiO2 06/09/16 16:00 98.3 95 18 130/102 96 Room Air 06/09/16 11:35 97.9 99 18 144/84 96 Room Air 06/09/16 08:03 97.7 108 19 140/79 97 Room Air 06/09/16 04:07 97.2 06/09/16 04:00 97.5 95 16 129/77 99 Room Air 06/09/16 00:00 97.2 79 19 133/79 98 Room Air 06/08/16 20:00 97.3 57 20 137/55 97 Room Air Intake and Output 06/08/16 06/09/16 19:00 07:00 Intake Total 600 ml 360 ml Balance 600 ml 360 ml Intake Oral 600 ml 360 ml # Voids 3 3 # Bowel Movements 2 2 Height (Feet): 5 Height (Inches): 9.00 Weight (Pounds): 180 General Appearance: no apparent distress EENT: TMs normal Neck: supple Cardiovascular: regular rhythm Respiratory/Chest: no respiratory distress Abdomen: non tender Extremities: non-tender Edema: no edema noted Leg (L), no edema noted Leg (R) Edema: mild edema Neurologic: alert Skin: warm/dry Gerry Winston Jun 09, 2016 16:51
--- NOTE | 2016-06-09 16:55 | Infectious Diseases Prog Note ---
Assessment/Plan Problems: (1) Histoplasmosis pneumonia Assessment & Plan: with positive serology titer , and cavitary lung lesions due to most likely praying in a cave, continue itraconazole for three months , monitor liver function test every week, follow up with PCP. (2) Cavitary lung disease Assessment & Plan: no evidence of TB with negative smear x 3 and negative PPD test , and negative T spot, and negative TB PCR, most likely due to histoplasmosis , will treat with itraconazol for three months, recommend to repeat CT scan of the chest in 6 weeks to confirm the improvement of his lung lesions. may remove from respiratory isolation , other fungal serology are negative , HIV test is negative , Echo didn't show any valvular vegetation to suggest septic emboli , and blood culture remained negative . await sputum PCR for clearance from [facility]. (3) Pleurisy Assessment & Plan: due to the above, continue pain management as per primary Subjective Constitutional: Reports: no symptoms HEENT: Reports: no symptoms Respiratory: Reports: no symptoms Cardiovascular: Reports: no symptoms Gastrointestinal/Abdominal: Reports: no symptoms Genitourinary: Reports: no symptoms Neurologic: Reports: no symptoms Psychiatric: Reports: no symptoms Skin: Reports: no symptoms Endocrine: Reports: no symptoms Hematologic: Reports: no symptoms Allergies: Coded Allergies: No Known Allergies (Unverified , 05/24/16) Subjective he was doing ok, denied any fever or chills, no nausea or vomiting Objective Vital Signs Last 24 Hour Vital Signs Date Time Temp Pulse Resp B/P Pulse Ox O2 Delivery O2 Flow Rate FiO2 06/09/16 16:00 98.3 95 18 130/102 96 Room Air 06/09/16 11:35 97.9 99 18 144/84 96 Room Air 06/09/16 08:03 97.7 108 19 140/79 97 Room Air 06/09/16 04:07 97.2 06/09/16 04:00 97.5 95 16 129/77 99 Room Air 06/09/16 00:00 97.2 79 19 133/79 98 Room Air 06/08/16 20:00 97.3 57 20 137/55 97 Room Air Height (Feet): 5 Height (Inches): 9.00 Weight (Pounds): 180 General Appearance: WD/WN, no acute distress HEENT: normocephalic, atraumatic, anicteric, mucous membranes moist Respiratory/Chest: chest wall non-tender, lungs clear, normal breath sounds, no respiratory distress, no accessory muscle use Cardiovascular: normal peripheral pulses, normal rate, regular rhythm, no gallop/murmur Abdomen: normal bowel sounds, soft, non tender, no organomegaly, non distended , no mass, no scars Extremities: no cyanosis, no clubbing Skin: no rash, no lesions, no ulcers Current Medications Medications (Trade) Dose Ordered Sig/Ekila Route PRN Reason Start Time Stop Time Status Last Admin Dose Admin Acetaminophen (Tylenol) 650 mg Q4H PRN ORAL Fever/Headache/Mild Pain 06/09/16 14:30 07/09/16 14:29 Aspirin (ASA) 162 mg DAILY ORAL 05/30/16 09:00 06/29/16 08:59 06/09/16 09:09 Fish Oil (Fish Oil) 1,000 mg DAILY ORAL 05/30/16 09:00 06/29/16 08:59 06/09/16 09:09 Heparin Sodium (Porcine) (Heparin 5000 units/ml) 5,000 units EVERY 12 HOURS SUBQ 05/29/16 21:00 06/28/16 20:59 06/09/16 09:13 Itraconazole (Sporanox) 200 mg EVERY 12 HOURS ORAL 06/06/16 09:00 08/31/16 08:59 06/09/16 09:09 Nitroglycerin (Ntg) 0.4 mg Q5M x 3 doses PRN SL Prn Chest Pain 05/29/16 14:45 06/28/16 14:44 Ondansetron HCl (Zofran) 4 mg Q6H PRN IVP Nausea & Vomiting 05/29/16 16:00 06/28/16 15:59 Pantoprazole (Protonix) 40 mg ACBREAKFAST ORAL 05/30/16 06:30 06/29/16 06:29 06/09/16 05:47 Polyethylene Glycol (Miralax) 17 gm DAILYPRN PRN ORAL Constipation 05/29/16 22:00 06/28/16 21:59 Erin Navarrete M.D. Jun 09, 2016 16:55
--- NOTE | 2016-06-09 18:21 | Cardiac Electrophysiology PN ---
Assessment/Plan Assessment/Plan 1. Sinus tachycardia. No SVT.Resolved 2. 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 Ruled out for TB Off isolation per ID DW RN Subjective Subjective Comfortable in NAD. No SOB Off isolation.Had transient right sided chest pain last night that was resolved. Objective Last 24 Hour Vital Signs Date Time Temp Pulse Resp B/P Pulse Ox O2 Delivery O2 Flow Rate FiO2 06/09/16 16:00 98.3 95 18 130/102 96 Room Air 06/09/16 11:35 97.9 99 18 144/84 96 Room Air 06/09/16 08:03 97.7 108 19 140/79 97 Room Air 06/09/16 04:07 97.2 06/09/16 04:00 97.5 95 16 129/77 99 Room Air 06/09/16 00:00 97.2 79 19 133/79 98 Room Air 06/08/16 20:00 97.3 57 20 137/55 97 Room Air Intake and Output 06/08/16 06/09/16 19:00 07:00 Intake Total 600 ml 360 ml Balance 600 ml 360 ml Intake Oral 600 ml 360 ml # Voids 3 3 # Bowel Movements 2 2 Current Medications Medications (Trade) Dose Ordered Sig/Keila Route PRN Reason Start Time Stop Time Status Last Admin Dose Admin Acetaminophen (Tylenol) 650 mg Q4H PRN ORAL Fever/Headache/Mild Pain 06/09/16 14:30 07/09/16 14:29 06/09/16 17:12 Aspirin (ASA) 162 mg DAILY ORAL 05/30/16 09:00 06/29/16 08:59 06/09/16 09:09 Fish Oil (Fish Oil) 1,000 mg DAILY ORAL 05/30/16 09:00 06/29/16 08:59 06/09/16 09:09 Heparin Sodium (Porcine) (Heparin 5000 units/ml) 5,000 units EVERY 12 HOURS SUBQ 05/29/16 21:00 06/28/16 20:59 06/09/16 09:13 Itraconazole (Sporanox) 200 mg EVERY 12 HOURS ORAL 06/06/16 09:00 08/31/16 08:59 06/09/16 09:09 Nitroglycerin (Ntg) 0.4 mg Q5M x 3 doses PRN SL Prn Chest Pain 05/29/16 14:45 06/28/16 14:44 Ondansetron HCl (Zofran) 4 mg Q6H PRN IVP Nausea & Vomiting 05/29/16 16:00 06/28/16 15:59 Pantoprazole (Protonix) 40 mg ACBREAKFAST ORAL 05/30/16 06:30 06/29/16 06:29 06/09/16 05:47 Polyethylene Glycol (Miralax) 17 gm DAILYPRN PRN ORAL Constipation 05/29/16 22:00 06/28/16 21:59 Objective HEAD AND NECK: No JVD. LUNGS: Decreased breath sounds on the right side. CARDIOVASCULAR: Regular S1 and S2 with no gallop or murmur.Tachycardic. ABDOMEN: Soft and nontender. EXTREMITIES: No pitting edema. JOHN PENA Jun 09, 2016 18:21
[2016-06-09 19:55] VITALS: BP 138/93
[2016-06-10] VITALS: BP 133/99
[2016-06-10 04:00] VITALS: BP 136/97
[2016-06-10 08:00] VITALS: BP 143/96
[2016-06-10] MEDS: Aspirin Baby 81mg ORAL SCH (08:50)
[2016-06-10] MEDS: Heparin 5000 units/ml inj SUBQ SCH (08:55)
--- NOTE | 2016-06-10 09:01 | Pulmonology Progress Note ---
Assessment/Plan Assessment/Plan ASSESSMENT Histoplasmosis PNA cavitary lung disease r/o TB-negative pleurisy HTN mixed hyperlipidemia PLAN OF CARE MS floor O2 HHN prn CTA thorax - Multiple masslike lesions with central cavitation, While possibly on the basis of multifocal cavitary metastases, given patient's age suspect that these represent disseminated inflammatory foci, possibly mycobacterial infection. sputum AFB x 3 ( all negative) PPD rechecked, negative ( wrong reading initially) T spot negative, TB PCR negative ID follows + SEROLOGY TITER 1:8 for Histo on Itraconazole, need 3 months as per ID with weekly LFT monitoring all other fungal serology negative serial troponin x 3 negative, ECG no ST changes, cardio ruled out for ACS ECHO with preserved EF 65% and RVSP of 26 , no evidence of valvular vegetation per cardio - chest pain noncardiac, no further cardiac w/up is needed chest pain likely pleuritic, resolved lipid panel with elevated LDL and TG, on fish oil, off statin for now until finished Itraconazole due to risk of potential interaction and elevation of LFT educated on low fat low cholesterol diet monitor BP, currently stable DVT, GI prophylaxis pain management case discussed and evaluated by supervising physician Subjective Allergies: Coded Allergies: No Known Allergies (Unverified , 05/24/16) Subjective denies CP, SOB, on RA sat stable afebrile, no leucocytosis awaiting for clearance Objective Last 24 Hour Vital Signs Date Time Temp Pulse Resp B/P Pulse Ox O2 Delivery O2 Flow Rate FiO2 06/10/16 08:00 98.1 103 18 143/96 94 Room Air 06/10/16 04:00 97.7 98 18 136/97 95 Room Air 06/10/16 02:20 98.1 06/10/16 00:00 98.1 101 20 133/99 100 Room Air 06/09/16 19:55 98.2 92 18 138/93 96 Room Air 06/09/16 16:00 98.3 95 18 130/102 96 Room Air 06/09/16 11:35 97.9 99 18 144/84 96 Room Air Intake and Output 06/09/16 06/10/16 19:00 07:00 Intake Total 620 ml 1300 ml Balance 620 ml 1300 ml Intake Oral 620 ml 1300 ml # Voids 3 4 # Bowel Movements 2 1 Objective General Appearance: WD/WN, no acute distress HEENT: normocephalic, atraumatic, anicteric, mucous membranes moist, PERRL Respiratory/Chest: chest wall non-tender, lungs clear - with moderate air intake , no respiratory distress, no accessory muscle use Cardiovascular: normal rate, regular rhythm Abdomen: soft, non tender, non distended Extremities: no edema Neurologic/Psychiatric: prism measurer II-XII 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, no motor/sensory deficits, alert, oriented x 3, responsive Musculoskeletal: normal muscle bulk Current Medications Medications (Trade) Dose Ordered Sig/Keila Route PRN Reason Start Time Stop Time Status Last Admin Dose Admin Acetaminophen (Tylenol) 650 mg Q4H PRN ORAL Fever/Headache/Mild Pain 06/09/16 14:30 07/09/16 14:29 06/10/16 01:21 Aspirin (ASA) 162 mg DAILY ORAL 05/30/16 09:00 06/29/16 08:59 06/09/16 09:09 Fish Oil (Fish Oil) 1,000 mg DAILY ORAL 05/30/16 09:00 06/29/16 08:59 06/09/16 09:09 Heparin Sodium (Porcine) (Heparin 5000 units/ml) 5,000 units EVERY 12 HOURS SUBQ 05/29/16 21:00 06/28/16 20:59 06/09/16 09:13 Itraconazole (Sporanox) 200 mg EVERY 12 HOURS ORAL 06/06/16 09:00 08/31/16 08:59 06/09/16 21:37 Nitroglycerin (Ntg) 0.4 mg Q5M x 3 doses PRN SL Prn Chest Pain 05/29/16 14:45 06/28/16 14:44 Ondansetron HCl (Zofran) 4 mg Q6H PRN IVP Nausea & Vomiting 05/29/16 16:00 06/28/16 15:59 Pantoprazole (Protonix) 40 mg ACBREAKFAST ORAL 05/30/16 06:30 06/29/16 06:29 06/10/16 05:36 Polyethylene Glycol (Miralax) 17 gm DAILYPRN PRN ORAL Constipation 05/29/16 22:00 06/28/16 21:59 Yanci Liang NP (Vanchtein) Jun 10, 2016 09:01
--- NOTE | 2016-06-10 09:39 | Cardiac Electrophysiology PN ---
Assessment/Plan Assessment/Plan 1. Sinus tachycardia. Due to infection that resolved.No SVTor atrial fib.Echo EF 65% with no vegetation. 2. 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 Pleurisy 4. HTN Stable off meds. DW RN Subjective Subjective Comfortable in NAD. No CP or SOB. Off isolation. Objective Last 24 Hour Vital Signs Date Time Temp Pulse Resp B/P Pulse Ox O2 Delivery O2 Flow Rate FiO2 06/10/16 08:00 98.1 103 18 143/96 94 Room Air 06/10/16 04:00 97.7 98 18 136/97 95 Room Air 06/10/16 02:20 98.1 06/10/16 00:00 98.1 101 20 133/99 100 Room Air 06/09/16 19:55 98.2 92 18 138/93 96 Room Air 06/09/16 16:00 98.3 95 18 130/102 96 Room Air 06/09/16 11:35 97.9 99 18 144/84 96 Room Air Intake and Output 06/09/16 06/10/16 19:00 07:00 Intake Total 620 ml 1300 ml Balance 620 ml 1300 ml Intake Oral 620 ml 1300 ml # Voids 3 4 # Bowel Movements 2 1 Current Medications Medications (Trade) Dose Ordered Sig/Keila Route PRN Reason Start Time Stop Time Status Last Admin Dose Admin Acetaminophen (Tylenol) 650 mg Q4H PRN ORAL Fever/Headache/Mild Pain 06/09/16 14:30 07/09/16 14:29 06/10/16 08:51 Aspirin (ASA) 162 mg DAILY ORAL 05/30/16 09:00 06/29/16 08:59 06/10/16 08:50 Fish Oil (Fish Oil) 1,000 mg DAILY ORAL 05/30/16 09:00 06/29/16 08:59 06/10/16 08:50 Heparin Sodium (Porcine) (Heparin 5000 units/ml) 5,000 units EVERY 12 HOURS SUBQ 05/29/16 21:00 06/28/16 20:59 06/10/16 08:55 Itraconazole (Sporanox) 200 mg EVERY 12 HOURS ORAL 06/06/16 09:00 08/31/16 08:59 06/10/16 08:53 Nitroglycerin (Ntg) 0.4 mg Q5M x 3 doses PRN SL Prn Chest Pain 05/29/16 14:45 06/28/16 14:44 Ondansetron HCl (Zofran) 4 mg Q6H PRN IVP Nausea & Vomiting 05/29/16 16:00 06/28/16 15:59 Pantoprazole (Protonix) 40 mg ACBREAKFAST ORAL 05/30/16 06:30 06/29/16 06:29 06/10/16 05:36 Polyethylene Glycol (Miralax) 17 gm DAILYPRN PRN ORAL Constipation 05/29/16 22:00 06/28/16 21:59 Objective HEAD AND NECK: No JVD. LUNGS: Decreased breath sounds on the right side. CARDIOVASCULAR: Regular S1 and S2 with no gallop or murmur.Tachycardic. ABDOMEN: Soft and nontender. EXTREMITIES: No pitting edema. JOHN PENA Jun 10, 2016 09:39
[2016-06-10 13:00] VITALS: BP 136/88
[2016-06-10] MEDS ORDERED: ITRACONAZOLE100 MG PO (13:29)
--- NOTE | 2016-06-10 15:51 | General Progress Note ---
Assessment/Plan Problem List: (1) Chest pain ICD Codes: R07.9 - Chest pain, unspecified SNOMED: 59998542 Qualifiers: Qualified Codes: R07.9 - Chest pain, unspecified (2) Pleurisy ICD Codes: R09.1 - Pleurisy SNOMED: 362731628, 85187495 (3) Septic embolism ICD Codes: I26.90 - Septic pulmonary embolism without acute cor pulmonale SNOMED: 722286835, 06090327 (4) Cavitary lung disease ICD Codes: J98.4 - Other disorders of lung SNOMED: 14737041 (5) Histoplasmosis pneumonia ICD Codes: B39.2 - Pulmonary histoplasmosis capsulati, unspecified SNOMED: 603175318 Status: progressing Assessment/Plan fungal pna once cleared by id and pulm and public health can me dc home w abx perscription per id afebrile Subjective ROS Limited/Unobtainable: Yes Allergies: Coded Allergies: No Known Allergies (Unverified , 05/24/16) Objective Last 24 Hour Vital Signs Date Time Temp Pulse Resp B/P Pulse Ox O2 Delivery O2 Flow Rate FiO2 06/10/16 13:00 97.6 96 18 136/88 94 Room Air 06/10/16 08:00 98.1 103 18 143/96 94 Room Air 06/10/16 04:00 97.7 98 18 136/97 95 Room Air 06/10/16 02:20 98.1 06/10/16 00:00 98.1 101 20 133/99 100 Room Air 06/09/16 19:55 98.2 92 18 138/93 96 Room Air 06/09/16 16:00 98.3 95 18 130/102 96 Room Air Intake and Output 06/09/16 06/10/16 19:00 07:00 Intake Total 620 ml 1300 ml Balance 620 ml 1300 ml Intake Oral 620 ml 1300 ml # Voids 3 4 # Bowel Movements 2 1 Height (Feet): 5 Height (Inches): 9.00 Weight (Pounds): 180 Cardiovascular: normal rate Respiratory/Chest: lungs clear Abdomen: soft Jesse Dean MD Jun 10, 2016 15:51
--- NOTE | 2016-06-10 16:46 | Infectious Diseases Prog Note ---
Assessment/Plan Problems: (1) Histoplasmosis pneumonia Assessment & Plan: with positive serology titer , and cavitary lung lesions due to most likely praying in a cave, continue itraconazole for three months , monitor liver function test every week, follow up with PCP. (2) Cavitary lung disease Assessment & Plan: no evidence of TB with negative smear x 3 and negative PPD test , and negative T spot, and negative TB PCR, most likely due to histoplasmosis , will treat with itraconazol for three months, recommend to repeat CT scan of the chest in 6 weeks to confirm the improvement of his lung lesions. may remove from respiratory isolation , other fungal serology are negative , HIV test is negative , Echo didn't show any valvular vegetation to suggest septic emboli , and blood culture remained negative . await sputum PCR for clearance from [facility]. (3) Pleurisy Assessment & Plan: due to the above, continue pain management as per primary Subjective Constitutional: Reports: no symptoms HEENT: Reports: no symptoms Respiratory: Reports: no symptoms Breasts: Reports: no symptoms Cardiovascular: Reports: no symptoms Gastrointestinal/Abdominal: Reports: no symptoms Genitourinary: Reports: no symptoms Neurologic: Reports: no symptoms Psychiatric: Reports: no symptoms Skin: Reports: no symptoms Endocrine: Reports: no symptoms Hematologic: Reports: no symptoms Musculoskeletal: Reports: no symptoms Allergies: Coded Allergies: No Known Allergies (Unverified , 05/24/16) Subjective he was doing ok, denied any fever or chills, no nausea or vomiting Objective Vital Signs Last 24 Hour Vital Signs Date Time Temp Pulse Resp B/P Pulse Ox O2 Delivery O2 Flow Rate FiO2 06/10/16 13:00 97.6 96 18 136/88 94 Room Air 06/10/16 08:00 98.1 103 18 143/96 94 Room Air 06/10/16 04:00 97.7 98 18 136/97 95 Room Air 06/10/16 02:20 98.1 06/10/16 00:00 98.1 101 20 133/99 100 Room Air 06/09/16 19:55 98.2 92 18 138/93 96 Room Air Height (Feet): 5 Height (Inches): 9.00 Weight (Pounds): 180 General Appearance: WD/WN, no acute distress HEENT: normocephalic, atraumatic, anicteric, mucous membranes moist Respiratory/Chest: chest wall non-tender, lungs clear, normal breath sounds, no respiratory distress, no accessory muscle use Cardiovascular: normal peripheral pulses, normal rate, regular rhythm, no gallop/murmur Abdomen: normal bowel sounds, soft, non tender, no organomegaly, non distended , no mass Extremities: no cyanosis, no clubbing Skin: no rash, no lesions, no ulcers Erin Navarrete M.D. Jun 10, 2016 16:46
--- NOTE | 2016-06-10 18:46 | General Progress Note ---
Assessment/Plan Assessment/Plan ASSESSMENT: 1. Eosinophilia. AFB negative, likely 2/2 histoplasmosis 2. Pulmonary nodules. 2/2 histo - continuing itraconazole, left lesion better, but right lung lesions are slightly larger 3. Chest pain, improved, non-cardiac in nature. Cardiology followup 4. Hypertension. 5. Hyperlipidemia. RECOMMENDATIONS: 1. F/U on histo cultures 2. Continuing itraconazole rx 3. Monitoring coagulopathy 4. Followup on Cardiology, ID, pulm recs. 5. Peripheral smear has been reviewed 6. DVT prophylaxis with heparin sq. 7. GI prophylaxis with PPI. 8. From heme persecptive, stable for d/c 9. staff. Thank you, Gerry Winston MD Subjective Constitutional: Reports: no symptoms HEENT: Reports: no symptoms Cardiovascular: Reports: no symptoms Respiratory: Reports: no symptoms Gastrointestinal/Abdominal: Reports: no symptoms Genitourinary: Reports: no symptoms Neurologic/Psychiatric: Reports: no symptoms Endocrine: Reports: no symptoms Hematologic/Lymphatic: Reports: anemia Allergies: Coded Allergies: No Known Allergies (Unverified , 05/24/16) Subjective stable, no complaints today, not bleeding Objective Last 24 Hour Vital Signs Date Time Temp Pulse Resp B/P Pulse Ox O2 Delivery O2 Flow Rate FiO2 06/10/16 13:00 97.6 96 18 136/88 94 Room Air 06/10/16 08:00 98.1 103 18 143/96 94 Room Air 06/10/16 04:00 97.7 98 18 136/97 95 Room Air 06/10/16 02:20 98.1 06/10/16 00:00 98.1 101 20 133/99 100 Room Air 06/09/16 19:55 98.2 92 18 138/93 96 Room Air Intake and Output 06/09/16 06/10/16 19:00 07:00 Intake Total 620 ml 1300 ml Balance 620 ml 1300 ml Intake Oral 620 ml 1300 ml # Voids 3 4 # Bowel Movements 2 1 Height (Feet): 5 Height (Inches): 9.00 Weight (Pounds): 180 General Appearance: no apparent distress EENT: normal ENT inspection Neck: non-tender Cardiovascular: regular rhythm Respiratory/Chest: normal breath sounds Abdomen: no mass Extremities: non-tender Edema: 1+ Leg (L), 1+ Leg (R) Edema: mild edema Neurologic: alert Skin: warm/dry Gerry Winston Jun 10, 2016 18:46
--- NOTE | 2016-06-12 10:33 | Diagnostic Imaging Report ---
Indication: Chest pain Technique: AP and lateral views of the chest. Findings: Comparison: 05/29/2016 The bones and extra pulmonary soft tissues, cardiomediastinal silhouette, pulmonary vasculature and parenchyma, and pleural surfaces remain unremarkable. IMPRESSION: Negative AP and lateral chest radiographs , unchanged
--- NOTE | 2016-06-13 10:43 | Discharge Summary ---
Discharge Summary Hospital Course Date of Admission May 24, 2016 at 21:15 Date of Discharge Jun 10, 2016 at 14:45 Admitting Diagnosis CHEST PAIN HPI Kerwin Barragan was admitted on May 24, 2016 at 21:15 for Chest Pain 35 y/o male presented with 2 hours of dull, 10/10 right sided non-radiating chest pain. No associated SOB, diaphoresis, nausea/vomiting. History of HTN, denied smoking, ETOH abuse, illicit drug use. not on any medications by EMS given 3 sprays nitro and ASA with minimal improvement. CXR in ED revealed multiple pulmonary mass CTA thorax with evidence of cavitary lung disease troponin negative , EVG with sinus rhythm , patient admitted to tele for further management Consultations pulmo dr Servin ID dr Navarrete cardio dr Reece heme dr Winston Hospital Course initially in tele respiratory isolation O2 HHN prn CTA thorax - Multiple masslike lesions with central cavitation, While possibly on the basis of multifocal cavitary metastases, given patient's age suspect that these represent disseminated inflammatory foci, possibly mycobacterial infection. sputum AFB x 3 ( all negative) PPD negative T spot negative, TB PCR negative ID followed + SEROLOGY TITER 1:8 for Histo on Itraconazole, need total 3 months as per ID with weekly LFT monitoring all other fungal serology negative serial troponin x 3 negative, ECG no ST changes, cardio ruled out for ACS ECHO with preserved EF 65% and RVSP of 26 , no evidence of valvular vegetation per cardio - chest pain noncardiac, no further cardiac w/up is needed chest pain likely pleuritic, resolved lipid panel with elevated LDL and TG, on fish oil, off statin for now until finished Itraconazole due to risk of potential interaction and elevation of LFT educated on low fat low cholesterol diet monitor BP, currently stable , not on any anti HTN medications DVT, GI prophylaxis pain management ID and pulmo cleared for discharge written clearance for discharge provided by health department dc today , scripts for Itraconazole provided ( need total 3 months) Fish oil OTC recommended to repeat CT chest in 6 weeks to monitor for improvement Discharge Medications Continued Medications: Itraconazole (Itraconazole) 100 Mg Capsule 100 MG PO for 30 Days, CAP Discharge Condition Upon Discharge: improving, stable Discharge Disposition Patient was discharged to Home (01) Discharge Diagnoses: (1) Histoplasmosis pneumonia (2) Cavitary lung disease (3) Pleurisy (4) Hyperlipidemia, mixed (5) HTN (hypertension) Discharge Instructions Discharge Instructions Follow up with: PMD, CT chest in 6 weeks Call MD/Return to Hospital if: fever, cough, dyspnea, wheezing, hemoptysis , chest pain Diet: cardiac 2 GM Na, low fat Activity: resume normal activities, as tolerated Yanci Liang NP (Vanchtein) Jun 13, 2016 10:43
[2016-07-12] MEDS ORDERED: SPORANOX100 MG ORAL ×2 (11:45→11:46)
[2016-07-12] MEDS ORDERED: ZYVOX600 MG ORAL (11:45)
[2016-07-12] MEDS ORDERED: LEVAQUIN500 MG ORAL (11:45)
== END 2016-06-10 14:45 | disposition home or self-care (01) | DRG 137 ==
LOC: EDBD 20:00 → EMR 20:12 → 2E 21:15 → EDBEDREQ 05-25 15:54 → 4E 05-29 14:20
DX: B39.2 Pulmonary histoplasmosis capsulati, unspecified (principal); I26.90 Septic pulmonary embolism without acute cor pulmonale; I10 Essential (primary) hypertension; R00.0 Tachycardia, unspecified; E78.5 Hyperlipidemia, unspecified; R07.89 Other chest pain
CPT/HCPCS: 36415; 71010; 71020; 71260; 71275; 80048; 80053; 80061; 80076; 80300; 82378; 82550; 82553; 83605; 83615; 83880; 84443; 84484; 85025; 85060; 85610; 85651; 85730; 86140; 86171; 86580; 86606; 86612; 86635; 86703; 87040; 87116; 87449; 87556; 93005; 93306; 94640; 94664; J2405; J7620

== ENCOUNTER 2016-06-19 12:31 | Inpatient (IN) | payer MEDICAID ==
[2016-06-19] VITALS (7 sets, daily range): BP systolic 116–148; BP diastolic 71–90
[~2016-06-19] VITALS: Ht 165.1 cm; Wt 77.1 kg
[~2016-06-19 12:31] MED LIST: ITRACONAZOLE100 MG PO; NKM
[2016-06-19] MEDS ORDERED: UNOBMED (12:46)
[2016-06-19 13:20] LABS: MEAN CORPUSCULAR HEMOGLOBIN 28.8 PG (27.0-31.0); MEAN CORPUSCULAR HGB CONC 33.5 G/DL (32.0-36.0); MEAN CORPUSCULAR VOLUME 86 FL (80-99); MEAN PLATELET VOLUME 8.7 FL (6.5-10.1); PLATELET COUNT 370 K/UL (150-450); RED BLOOD COUNT 4.49 M/UL (4.70-6.10); RED CELL DISTRIBUTION WIDTH 11.3 % (11.6-14.8); WHITE BLOOD COUNT 19.6 K/UL (4.8-10.8)
[2016-06-19 13:39] LABS: ALANINE AMINOTRANSFERASE 29 U/L (3-41); ALBUMIN/GLOBULIN RATIO 0.7 (1.0-2.7); ANION GAP 19 (5-15); ASPARTATE AMINO TRANSFERASE 22 U/L (5-40); CALCIUM 8.7 mg/dL (8.6-10.2); CARBON DIOXIDE 24 mEQ/L (20-30); CHLORIDE 92 mEQ/L (98-107); CREATININE 0.7 mg/dL (0.7-1.2); GLOMERULAR FILTRATION RATE > 60 mL/min (>60); HEMOLYSIS 0; LIPASE 60 U/L (< 60); POTASSIUM 3.4 mEQ/L (3.4-4.9); SODIUM 135 mEQ/L (135-145); TOTAL PROTEIN 7.8 g/dL (6.6-8.7)
[2016-06-19] MEDS ORDERED: Acetaminophen 650 MG SUPP RECTAL ONE ×2 (13:45→13:46)
[2016-06-19] MEDS: Ipratropium 0.02% Inh Soln 2.5ml UD HHN SCH ×3 (13:46→14:13)
[2016-06-19] MEDS: Albuterol ud Inhalation HHN SCH ×3 (13:46→14:13)
[2016-06-19 14:06] LABS: BAND NEUTROPHILS % (MANUAL) 5 % (0-8); BASOPHILS % (MANUAL) 0 % (0-2); EOSINOPHILS % (MANUAL) 0 % (0-3); LYMPHOCYTES % (MANUAL) 4 % (20-45); NEUTROPHILS % (MANUAL) 83 % (45-75); PLATELET ESTIMATE ADEQUATE; PLATELET MORPHOLOGY NORMAL; TOTAL CELLS COUNTED 100
[2016-06-19 14:07] LABS: HYPOCHROMASIA 1+
[2016-06-19] MEDS ORDERED: Vancomycin 1.5gm/D5W 300ml 325 ML IVPB ONE (14:15)
[2016-06-19] MEDS ORDERED: Piperacillin/Tazobactam 3.375 GM in NS 110 ML IVPB ONE (14:15)
[2016-06-19] MEDS ORDERED: Zosyn 3.375gm inj ONE (14:29)
[2016-06-19 14:35] LABS: APPEARANCE,URINE CLEAR; KETONES,URINE NEGATIVE (NEGATIVE); LEUKOCYTE ESTERASE ,URINE 1+ (NEGATIVE); NITRITE,URINE NEGATIVE (NEGATIVE); PH,URINE 6.5 (4.5-8.0); PROTEIN,URINE 3+ (NEGATIVE); UROBILINOGEN,URINE 8 MG/DL (0.0-1.0)
[2016-06-19 14:38] LABS: ICTOTEST NEGATIVE
[2016-06-19 14:46] LABS: BACTERIA,URINE FEW /HPF; MUCUS,URINE FEW /LPF (NONE/OCC); SQUAMOUS EPITHELIAL CELL,UR OCCASIONAL /LPF (NONE/OCC)
[2016-06-19 15:14] LABS: CKMB 1.6 ng/mL (< 6.7)
[2016-06-19] MEDS ORDERED: Ketorolac 30mg Inj IV ONE (15:30)
--- NOTE | 2016-06-19 15:48 | Emergency Room Report ---
History of Present Illness General Chief Complaint: Vomiting Present Illness HPI The patient is a 35-year-old male who was admitted to this hospital 1 month prior and diagnosed with histoplasmosis with multiple cavitary lesions of the lungs presenting for coughing, fever, and vomiting which began one day prior. The patient was FL'ed home and treated with itraconazole which the patient states was helping. The patient also admits to subjective fever and chills. The patient denies ny pain, rash, hemoptysis, hematemesis, diarrhea, constipation, chest pain, numbness or tingling of extremities, a (MATTIE BENNETT P.A.) Allergies: Coded Allergies: No Known Allergies (Unverified , 05/24/16) Patient History Past Medical History: see triage record Pertinent Family History: none Reviewed Nursing Documentation: PMH: Agreed, PSxH: Agreed (MATTIE BENNETT P.A.) Nursing Documentation-PMH Hx Cardiac Problems: Yes Hx Hypertension: Yes Hx Pacemaker: No - HISTOPLASMOSIS Hx Cancer: No Hx Gastrointestinal Problems: Yes - Hx of hernia abd. Hx Neurological Problems: No (MATTIE BENNETT P.A.) Review of Systems All Other Systems: negative except mentioned in HPI (MATTIE BENNETT P.A.) Physical Exam Vital Signs Date Time Temp Pulse Resp B/P Pulse Ox O2 Delivery O2 Flow Rate FiO2 06/19/16 12:35 102.6 122 20 134/73 86 Room Air 06/19/16 14:02 4.0 Sp02 EP Interpretation: reviewed, abnormal - O2 sat on room air at 85% General Appearance: GCS 15, mild distress Head: normocephalic, atraumatic Eyes: bilateral eye PERRL, bilateral eye normal inspection ENT: hearing 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, normal pharynx, no angioedema, normal voice, TMs + canals normal, uvula midline Neck: full range of motion, supple/symm/no masses Respiratory: no accessory muscle use, wheezing - RLL Cardiovascular #1: no edema, no murmur, tachycardia Gastrointestinal: normal bowel sounds, non tender, soft, non-distended, no guarding, no rebound Genitourinary: normal inspection, no CVA tenderness Musculoskeletal: back normal, gait/station normal, normal range of motion, non- tender Neurologic: alert, oriented x3, responsive, motor strength/tone normal, sensory intact, speech normal Psychiatric: judgement/insight normal, memory normal, mood/affect normal, no suicidal/homicidal ideation Skin: normal color, warm/dry, well hydrated, rash - Diffuse erythematous macular rash developed after infusion of abx Lymphatic: no adenopathy (MATTIE BENNETT) Medical Decision Making PA Attestation Dr. Montiel is my supervising physician. Patient management was discussed with my supervising physician (MATTIE BENNETT) Diagnostic Impression: Primary Impression: Adverse reaction to antibiotic Additional Impression: Pneumonia ER Course The patient is a 35-year-old male who was admitted to this hospital 1 month prior and diagnosed with histoplasmosis with multiple cavitary lesions of the lungs presenting for coughing, fever, and vomiting which began one day prior. DDx: influenza, bronchitis, PNA, histoplasmosis, sepsis PE: Vitals show fever, tachycardia, and tachypnea. Mild distress. Lungs: RLL wheezing. Labs: CBC: There is leukocytosis with a left shift. CMP: Unremarkable. Lactic Acid WNL CXR: RLL effusion. Pt given IV fluids, zofran, and IV abx including zosyn and vancomycin Diffuse erythematous macular rash developed after infusion of abx. The pt is given IM epi and benadryl. Rash has decreased. O2 saturation continues to be approximately 85% on 4 L via mask. The patient was given a breathing treatment and BiPAP ordered. Dr. Montiel discussed the patient with Dr. Sorensen the patient will be admitted to [facility] in serious but stable condition. Laboratory Tests Test 06/19/16 13:03 06/19/16 14:05 06/19/16 14:20 White Blood Count 19.6 K/UL (4.8-10.8) H Red Blood Count 4.49 M/UL (4.70-6.10) L Hemoglobin 12.9 G/DL (14.2-18.0) L Hematocrit 38.5 % (42.0-52.0) L Mean Corpuscular Volume 86 FL (80-99) Mean Corpuscular Hemoglobin 28.8 PG (27.0-31.0) Mean Corpuscular Hemoglobin Concent 33.5 G/DL (32.0-36.0) Red Cell Distribution Width 11.3 % (11.6-14.8) L Platelet Count 370 K/UL (150-450) Mean Platelet Volume 8.7 FL (6.5-10.1) Neutrophils (%) (Auto) % (45.0-75.0) Lymphocytes (%) (Auto) % (20.0-45.0) Monocytes (%) (Auto) % (1.0-10.0) Eosinophils (%) (Auto) % (0.0-3.0) Basophils (%) (Auto) % (0.0-2.0) Differential Total Cells Counted 100 Neutrophils % (Manual) 83 % (45-75) H Lymphocytes % (Manual) 4 % (20-45) L Monocytes % (Manual) 8 % (1-10) Eosinophils % (Manual) 0 % (0-3) Basophils % (Manual) 0 % (0-2) Band Neutrophils 5 % (0-8) Platelet Estimate Adequate Platelet Morphology Normal Hypochromasia 1+ Sodium Level 135 mEQ/L (135-145) Potassium Level 3.4 mEQ/L (3.4-4.9) Chloride Level 92 mEQ/L (98-107) L Carbon Dioxide Level 24 mEQ/L (20-30) Anion Gap 19 (5-15) H Blood Urea Nitrogen 9 mg/dL (7-23) Creatinine 0.7 mg/dL (0.7-1.2) Estimate Glomerular Filtration Rate > 60 mL/min (>60) Glucose Level 131 mg/dL (74-106) H Calcium Level 8.7 mg/dL (8.6-10.2) Total Bilirubin 0.8 mg/dL (0.0-1.2) Aspartate Amino Transferase (AST) 22 U/L (5-40) Alanine Aminotransferase (ALT) 29 U/L (3-41) Alkaline Phosphatase 75 U/L (40-129) Total Creatine Kinase 194 U/L (38-174) H Creatine Kinase MB 1.6 ng/mL (< 6.7) Creatine Kinase MB Relative Index 0.8 Total Protein 7.8 g/dL (6.6-8.7) Albumin 3.4 g/dL (3.5-5.2) L Globulin 4.4 g/dL Albumin/Globulin Ratio 0.7 (1.0-2.7) L Lipase 60 U/L (< 60) Lactic Acid Level 1.90 mmol/L (0.66-2.22) Urine Color Brown Urine Appearance Clear Urine pH 6.5 (4.5-8.0) Urine Specific [place] 1.005 (1.005-1.035) Urine Protein 3+ (NEGATIVE) H Urine Glucose (UA) Negative (NEGATIVE) Urine Ketones Negative (NEGATIVE) Urine Occult Blood 2+ (NEGATIVE) H Urine Nitrite Negative (NEGATIVE) Urine Bilirubin 1+ (NEGATIVE) H Urine Ictotest Negative Urine Urobilinogen 8 MG/DL (0.0-1.0) H Urine Leukocyte Esterase 1+ (NEGATIVE) H Urine RBC 2-4 /HPF (0 - 0) H Urine WBC 2-4 /HPF (0 - 0) Urine Squamous Epithelial Cells Occasional /LPF Urine Bacteria Few /HPF (NONE) Urine Mucus Few /LPF (NONE/OCC) H Urine Legionella Antigen Pending Microbiology Date/Time Source Procedure Growth Status 06/19/16 13:03 Nose Influenza Types A,B Antigen (KASSY) - Final Complete Lab Results Impression CBC: There is leukocytosis with a left shift. CMP: Unremarkable. Lactic Acid WNL (MATTIE BENNETT P.A.) ER Course Informed by RN and PA that patient acutely developed rash to chest, trunk, neck after administration of IV Abx. No known drug allergies Rash is wheel and flare appearance, hot, red. ?Drug allergy vs red man syndrome from Vanc less likely Patient became hypoxic, tachypnic and tachycardic possible anaphylaxis Was given IV benadryl and IM epinephrine with improvement Patient in ED awaiting bed placement Above events communicated to Dr Brewster (MARLY MONTIEL M.D.) EKG Diagnostic Results Rate: tachycardiac - 122 Rhythm: NSR ST Segments: no acute changes ASA given to the pt in ED: No PA Scribe Text EKG was reviewed and read with my supervising physician. No acute ST segment changes are seen. Sinus tachycardia. (MATTIE BENNETT P.A.) Chest X-Ray Diagnostic Results EP Interpretation: Yes Findings: other - There is effusion of the right lower lobe Number of Views: 1 PA Scribe Text I am acting as scribe for my supervising physician. My supervising physician's interpretation of the chest xrays are there there is an effusion of (MATTIE BENNETT P.A.) Last Vital Signs Date Time Temp Pulse Resp B/P Pulse Ox O2 Delivery O2 Flow Rate FiO2 06/19/16 15:25 100.6 127 22 143/90 94 Nasal Cannula 4.0 Status: improved (MATTIE BENNETT) Disposition: ADMITTED INPATIENT Condition: Serious Referrals: NOT CHOSEN IPA/,REFERRING (PCP) MATTIE BENNETT Jun 19, 2016 15:48 MARLY MONTIEL M.D. Jun 19, 2016 19:34
[2016-06-19] MEDS ORDERED: Metoclopramide 10mg/2ml Inj IVP ONE (16:15)
[2016-06-19] MEDS ORDERED: DiphenhydrAMINE 50mg/ml Inj IVP ONE (16:45)
[2016-06-19] MEDS ORDERED: EPINEPHrine 1mg/1ml Amp IM ONE (16:45)
[2016-06-19] MEDS ORDERED: Miralax 17gm pkt ORAL PRN (18:00)
[2016-06-19] MEDS ORDERED: Nitroglycerin Subl 0.4mg tab (Bottle Of 25) SL PRN (18:00)
[2016-06-19] MEDS ORDERED: DuoNeb 0.5-3(2.5)mg/3ml neb HHN PRN (18:00)
[2016-06-19] MEDS ORDERED: Mylanta II UD 30ml ORAL PRN (18:00)
--- NOTE | 2016-06-19 19:02 | Infectious Diseases Prog Note ---
Assessment/Plan Problems: (1) HCAP (healthcare-associated pneumonia) Assessment & Plan: will start zyvox empirically, continue cefepime , will send sputum and blood culture, had allergic reaction to either vancomycin or zosyn, most likely vancomycin with red man syndrome, will check eosinophils counts in the blood. (2) Vomiting Assessment & Plan: continue supportive care , monitor labs, continue hydration (3) Adverse reaction to antibiotic Assessment & Plan: unclear whether due to vancomycin VS zosyn , most likely vancomycin since it happened fast after infusion, suspect red man syndrome, will check blood eosinophils counts in blood. avoid both classes of antibiotics for now, ok to use cephalosporins since he received it last admission with no reaction (4) Histoplasmosis pneumonia Assessment & Plan: continue itraconazole, repeat CT scan Subjective Allergies: Coded Allergies: No Known Allergies (Unverified , 05/24/16) Objective Vital Signs Last 24 Hour Vital Signs Date Time Temp Pulse Resp B/P Pulse Ox O2 Delivery O2 Flow Rate FiO2 06/19/16 17:31 99.0 111 26 131/71 98 Bi-pap 50 06/19/16 16:54 97 18 95 Facial 50 06/19/16 16:53 113 24 96 Nasal Cannula 3.0 36 06/19/16 16:53 36 06/19/16 16:52 120 25 95 Nasal Cannula 3.0 36 06/19/16 16:49 50 06/19/16 16:02 100.6 06/19/16 15:25 100.6 127 22 143/90 94 Nasal Cannula 4.0 06/19/16 15:00 99.3 06/19/16 14:56 99.3 124 22 145/80 94 Simple Mask 6.0 06/19/16 14:02 102.6 112 24 117/76 96 Nasal Cannula 4.0 06/19/16 13:15 117 26 Room Air 06/19/16 13:15 117 29 122/79 85 Room Air 06/19/16 12:35 102.6 122 20 134/73 86 Room Air Height (Feet): 5 Height (Inches): 6.00 Weight (Pounds): 170 Microbiology Date/Time Source Procedure Growth Status 06/19/16 13:03 Nose Influenza Types A,B Antigen (KASSY) - Final Complete Laboratory Tests Test 06/19/16 13:03 06/19/16 14:05 06/19/16 14:20 White Blood Count 19.6 K/UL (4.8-10.8) H Red Blood Count 4.49 M/UL (4.70-6.10) L Hemoglobin 12.9 G/DL (14.2-18.0) L Hematocrit 38.5 % (42.0-52.0) L Mean Corpuscular Volume 86 FL (80-99) Mean Corpuscular Hemoglobin 28.8 PG (27.0-31.0) Mean Corpuscular Hemoglobin Concent 33.5 G/DL (32.0-36.0) Red Cell Distribution Width 11.3 % (11.6-14.8) L Platelet Count 370 K/UL (150-450) Mean Platelet Volume 8.7 FL (6.5-10.1) Neutrophils (%) (Auto) % (45.0-75.0) Lymphocytes (%) (Auto) % (20.0-45.0) Monocytes (%) (Auto) % (1.0-10.0) Eosinophils (%) (Auto) % (0.0-3.0) Basophils (%) (Auto) % (0.0-2.0) Differential Total Cells Counted 100 Neutrophils % (Manual) 83 % (45-75) H Lymphocytes % (Manual) 4 % (20-45) L Monocytes % (Manual) 8 % (1-10) Eosinophils % (Manual) 0 % (0-3) Basophils % (Manual) 0 % (0-2) Band Neutrophils 5 % (0-8) Platelet Estimate Adequate Platelet Morphology Normal Hypochromasia 1+ Sodium Level 135 mEQ/L (135-145) Potassium Level 3.4 mEQ/L (3.4-4.9) Chloride Level 92 mEQ/L (98-107) L Carbon Dioxide Level 24 mEQ/L (20-30) Anion Gap 19 (5-15) H Blood Urea Nitrogen 9 mg/dL (7-23) Creatinine 0.7 mg/dL (0.7-1.2) Estimat Glomerular Filtration Rate > 60 mL/min (>60) Glucose Level 131 mg/dL (74-106) H Calcium Level 8.7 mg/dL (8.6-10.2) Total Bilirubin 0.8 mg/dL (0.0-1.2) Aspartate Amino Transf (AST/SGOT) 22 U/L (5-40) Alanine Aminotransferase (ALT/SGPT) 29 U/L (3-41) Alkaline Phosphatase 75 U/L (40-129) Total Creatine Kinase 194 U/L (38-174) H Creatine Kinase MB 1.6 ng/mL (< 6.7) Creatine Kinase MB Relative Index 0.8 Total Protein 7.8 g/dL (6.6-8.7) Albumin 3.4 g/dL (3.5-5.2) L Globulin 4.4 g/dL Albumin/Globulin Ratio 0.7 (1.0-2.7) L Lipase 60 U/L (< 60) Lactic Acid Level 1.90 mmol/L (0.66-2.22) Urine Color Brown Urine Appearance Clear Urine pH 6.5 (4.5-8.0) Urine Specific [place] 1.005 (1.005-1.035) Urine Protein 3+ (NEGATIVE) H Urine Glucose (UA) Negative (NEGATIVE) Urine Ketones Negative (NEGATIVE) Urine Occult Blood 2+ (NEGATIVE) H Urine Nitrite Negative (NEGATIVE) Urine Bilirubin 1+ (NEGATIVE) H Urine Ictotest Negative Urine Urobilinogen 8 MG/DL (0.0-1.0) H Urine Leukocyte Esterase 1+ (NEGATIVE) H Urine RBC 2-4 /HPF (0 - 0) H Urine WBC 2-4 /HPF (0 - 0) Urine Squamous Epithelial Cells Occasional /LPF Urine Bacteria Few /HPF (NONE) Urine Mucus Few /LPF (NONE/OCC) H Urine Legionella Antigen Pending Current Medications Medications (Trade) Dose Ordered Sig/Keila Route PRN Reason Start Time Stop Time Status Last Admin Dose Admin Acetaminophen (Tylenol) 650 mg Q4H PRN ORAL fever 06/19/16 18:00 07/19/16 17:59 Al Hydroxide/Mg Hydroxide (Mylanta II) 30 ml Q6H PRN ORAL dyspepsia 06/19/16 18:00 07/19/16 17:59 Albuterol/ Ipratropium 3 ml 3 ml EVERY 4 HOURS PRN HHN Shortness of Breath 06/19/16 18:00 06/24/16 17:59 Cefepime HCl/ Dextrose (Maxipime/D5W 50ml) 50 ml @ 100 mls/hr EVERY 12 HOURS IV 06/19/16 21:00 06/26/16 20:59 Heparin Sodium (Porcine) (Heparin 5000 units/ml) 5,000 units EVERY 12 HOURS SUBQ 06/19/16 21:00 07/19/16 20:59 Nitroglycerin (Ntg) 0.4 mg Q5MIN X3 PRN SL Prn Chest Pain 06/19/16 18:00 07/19/16 17:59 Ondansetron HCl (Zofran) 4 mg Q6H PRN IVP Nausea & Vomiting 06/19/16 18:00 07/19/16 17:59 Polyethylene Glycol (Miralax) 17 gm DAILYPRN PRN ORAL Constipation 06/19/16 18:00 07/19/16 17:59 Promethazine HCl/ Codeine (Phenergan with Codeine) 5 ml Q4H PRN ORAL For Cough 06/19/16 18:00 07/19/16 17:59 Temazepam (Restoril) 15 mg HSPRN PRN ORAL Insomnia 06/19/16 21:00 06/26/16 20:59 Erin Navarrete M.D. Jun 19, 2016 19:02
[2016-06-19] MEDS: Heparin 5000 units/ml inj SUBQ SCH (21:38)
[2016-06-20] VITALS (9 sets, daily range): BP systolic 116–138; BP diastolic 66–90
[2016-06-20 04:58] LABS: MEAN CORPUSCULAR HGB CONC 33.4 G/DL (32.0-36.0); MEAN CORPUSCULAR VOLUME 87 FL (80-99); MEAN PLATELET VOLUME 8.1 FL (6.5-10.1); PLATELET COUNT 292 K/UL (150-450); RED CELL DISTRIBUTION WIDTH 11.6 % (11.6-14.8); WHITE BLOOD COUNT 13.6 K/UL (4.8-10.8)
[2016-06-20 05:56] LABS: CREATININE 2.4 mg/dL (0.7-1.2); GLOMERULAR FILTRATION RATE 30.6 mL/min (>60); PHOSPHORUS 6.4 mg/dL (2.5-4.8); POTASSIUM 3.7 mEQ/L (3.4-4.9)
[2016-06-20] MEDS: Heparin 5000 units/ml inj SUBQ SCH ×2 (09:03→21:24)
[2016-06-20 10:34] LABS: ANISOCYTOSIS 1+; BAND NEUTROPHILS % (MANUAL) 6 % (0-8); BASOPHILS % (MANUAL) 0 % (0-2); EOSINOPHILS % (MANUAL) 0 % (0-3); LYMPHOCYTES % (MANUAL) 6 % (20-45); NEUTROPHILS % (MANUAL) 84 % (45-75); PLATELET ESTIMATE ADEQUATE; TOTAL CELLS COUNTED 100
[2016-06-20 10:35] LABS: PLATELET MORPHOLOGY NORMAL
--- NOTE | 2016-06-20 11:28 | Consultation ---
History of Present Illness General Date patient seen: Jun 20, 2016 Chief Complaint: Vomiting Present Illness HPI 35-year-old male with hx of cavitary lung disease, presumptive Histoplasmosis, presented to ER for coughing, fever, and vomiting which began one day prior. He claims he never got better after dc from hospital. Allergies: Coded Allergies: PIPERACILLIN (Verified Adverse Reaction, Intermediate, 06/20/16) pt developed diffuse macular rash per ER MD notes. unclear if due to vanco or zosyn TAZOBACTAM (Verified Adverse Reaction, Intermediate, 06/20/16) pt developed diffuse macular rash per ER MD notes. unclear if due to vanco or zosyn VANCOMYCIN (Verified Adverse Reaction, Intermediate, 06/20/16) pt developed diffuse macular rash per ER MD notes. unclear if due to vanco or zosyn Medication History Scheduled No Known Medications* (NKM - No Known Medications*), 0 ., (Reported) Miscellaneous Medications Itraconazole (Itraconazole), 100 MG PO, (Reported) Unable to Obtain Medications (Unable To Obtain Meds), (Reported) Patient History Healthcare decision maker n/a Resuscitation status Full Code Advanced Directive on File No Past Medical/Surgical History Past Medical/Surgical History: (1) Histoplasmosis pneumonia (2) Cavitary lung disease Review of Systems Respiratory: Reports: shortness of breath Physical Exam General Appearance: WD/WN, no apparent distress HEENT: normocephalic, atraumatic Neck: non-tender, normal alignment Respiratory/Chest: chest wall non-tender, lungs clear Cardiovascular/Chest: normal peripheral pulses, regular rhythm Abdomen: normal bowel sounds Genitourinary/Rectal: normal genital exam Extremities: normal range of motion 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 Last 24 Hour Vital Signs Date Time Temp Pulse Resp B/P Pulse Ox O2 Delivery O2 Flow Rate FiO2 06/20/16 09:00 98.1 105 28 138/81 92 Venturi Mask 6.0 06/20/16 08:00 103 06/20/16 07:23 95 Venturi Mask 8.0 40 06/20/16 07:23 Venturi Mask 8.0 40 06/20/16 04:00 99.7 115 18 116/66 92 Venturi Mask 6.0 06/20/16 04:00 111 06/20/16 00:00 98.1 102 20 119/79 91 Venturi Mask 6.0 06/20/16 00:00 98 06/20/16 00:00 Venturi Mask 8.0 40 06/20/16 00:00 92 Venturi Mask 8.0 40 06/19/16 23:30 8.0 40 06/19/16 22:30 99.9 06/19/16 21:14 8.0 40 06/19/16 20:00 101.7 122 19 148/86 89 Nasal Cannula 4.0 06/19/16 20:00 122 06/19/16 19:40 113 37 95 Facial 50 06/19/16 19:38 99.0 124 22 116/83 99 Bi-pap 50 113 06/19/16 19:38 99.0 113 22 116/63 99 Bi-pap 50 06/19/16 17:31 99.0 111 26 131/71 98 Bi-pap 50 06/19/16 16:54 97 18 95 Facial 50 06/19/16 16:53 113 24 96 Nasal Cannula 3.0 36 06/19/16 16:53 36 06/19/16 16:52 120 25 95 Nasal Cannula 3.0 36 06/19/16 16:49 50 06/19/16 16:02 100.6 06/19/16 15:25 100.6 127 22 143/90 94 Nasal Cannula 4.0 06/19/16 15:00 99.3 06/19/16 14:56 99.3 124 22 145/80 94 Simple Mask 6.0 06/19/16 14:02 102.6 112 24 117/76 96 Nasal Cannula 4.0 06/19/16 13:15 117 26 Room Air 06/19/16 13:15 117 29 122/79 85 Room Air 06/19/16 12:35 102.6 122 20 134/73 86 Room Air Intake and Output 06/19/16 06/20/16 19:00 07:00 Intake Total 1000 ml 240 ml Output Total 200 ml Balance 800 ml 240 ml Intake Oral 240 ml IV Total 1000 ml Output Emesis 200 ml Laboratory Tests Test 06/19/16 13:03 06/19/16 14:05 06/19/16 14:20 06/20/16 03:30 White Blood Count 19.6 K/UL (4.8-10.8) H 13.6 K/UL (4.8-10.8) H Red Blood Count 4.49 M/UL (4.70-6.10) L 4.00 M/UL (4.70-6.10) L Hemoglobin 12.9 G/DL (14.2-18.0) L 11.6 G/DL (14.2-18.0) L Hematocrit 38.5 % (42.0-52.0) L 34.8 % (42.0-52.0) L Mean Corpuscular Volume 86 FL (80-99) 87 FL (80-99) Mean Corpuscular Hemoglobin 28.8 PG (27.0-31.0) 29.0 PG (27.0-31.0) Mean Corpuscular Hemoglobin Concent 33.5 G/DL (32.0-36.0) 33.4 G/DL (32.0-36.0) Red Cell Distribution Width 11.3 % (11.6-14.8) L 11.6 % (11.6-14.8) Platelet Count 370 K/UL (150-450) 292 K/UL (150-450) Mean Platelet Volume 8.7 FL (6.5-10.1) 8.1 FL (6.5-10.1) Neutrophils (%) (Auto) % (45.0-75.0) % (45.0-75.0) Lymphocytes (%) (Auto) % (20.0-45.0) % (20.0-45.0) Monocytes (%) (Auto) % (1.0-10.0) % (1.0-10.0) Eosinophils (%) (Auto) % (0.0-3.0) % (0.0-3.0) Basophils (%) (Auto) % (0.0-2.0) % (0.0-2.0) Differential Total Cells Counted 100 100 Neutrophils % (Manual) 83 % (45-75) H 84 % (45-75) H Lymphocytes % (Manual) 4 % (20-45) L 6 % (20-45) L Monocytes % (Manual) 8 % (1-10) 4 % (1-10) Eosinophils % (Manual) 0 % (0-3) 0 % (0-3) Basophils % (Manual) 0 % (0-2) 0 % (0-2) Band Neutrophils 5 % (0-8) 6 % (0-8) Platelet Estimate Adequate Adequate Platelet Morphology Normal Normal Hypochromasia 1+ Sodium Level 135 mEQ/L (135-145) 137 mEQ/L (135-145) Potassium Level 3.4 mEQ/L (3.4-4.9) 3.7 mEQ/L (3.4-4.9) Chloride Level 92 mEQ/L (98-107) L 95 mEQ/L (98-107) L Carbon Dioxide Level 24 mEQ/L (20-30) 22 mEQ/L (20-30) Anion Gap 19 (5-15) H 20 (5-15) H Blood Urea Nitrogen 9 mg/dL (7-23) 15 mg/dL (7-23) Creatinine 0.7 mg/dL (0.7-1.2) 2.4 mg/dL (0.7-1.2) #H Estimat Glomerular Filtration Rate > 60 mL/min (>60) 30.6 mL/min (>60) Glucose Level 131 mg/dL (74-106) H 107 mg/dL (74-106) H Calcium Level 8.7 mg/dL (8.6-10.2) 8.0 mg/dL (8.6-10.2) L Total Bilirubin 0.8 mg/dL (0.0-1.2) Aspartate Amino Transf (AST/SGOT) 22 U/L (5-40) Alanine Aminotransferase (ALT/SGPT) 29 U/L (3-41) Alkaline Phosphatase 75 U/L (40-129) Total Creatine Kinase 194 U/L (38-174) H Creatine Kinase MB 1.6 ng/mL (< 6.7) Creatine Kinase MB Relative Index 0.8 Total Protein 7.8 g/dL (6.6-8.7) Albumin 3.4 g/dL (3.5-5.2) L 2.6 g/dL (3.5-5.2) L Globulin 4.4 g/dL Albumin/Globulin Ratio 0.7 (1.0-2.7) L Lipase 60 U/L (< 60) Lactic Acid Level 1.90 mmol/L (0.66-2.22) Urine Color Brown Urine Appearance Clear Urine pH 6.5 (4.5-8.0) Urine Specific [place] 1.005 (1.005-1.035) Urine Protein 3+ (NEGATIVE) H Urine Glucose (UA) Negative (NEGATIVE) Urine Ketones Negative (NEGATIVE) Urine Occult Blood 2+ (NEGATIVE) H Urine Nitrite Negative (NEGATIVE) Urine Bilirubin 1+ (NEGATIVE) H Urine Ictotest Negative Urine Urobilinogen 8 MG/DL (0.0-1.0) H Urine Leukocyte Esterase 1+ (NEGATIVE) H Urine RBC 2-4 /HPF (0 - 0) H Urine WBC 2-4 /HPF (0 - 0) Urine Squamous Epithelial Cells Occasional /LPF Urine Bacteria Few /HPF (NONE) Urine Mucus Few /LPF (NONE/OCC) H Urine Legionella Antigen Pending Anisocytosis 1+ Phosphorus Level 6.4 mg/dL (2.5-4.8) H Ferritin 1556 ng/mL (10-230) H Microbiology Date/Time Source Procedure Growth Status 06/19/16 14:10 Sputum Expectorated Gram Stain - Final Resulted 06/19/16 14:10 Sputum Expectorated Sputum Culture - Preliminary NORMAL UPPER RESPIRATORY SONNY PRESENT Resulted 06/19/16 13:03 Nose Influenza Types A,B Antigen (KASSY) - Final Complete Height (Feet): 5 Height (Inches): 5.00 Weight (Pounds): 170 Medications Current Medications Medications (Trade) Dose Ordered Sig/Keila Route PRN Reason Start Time Stop Time Status Last Admin Dose Admin Acetaminophen (Tylenol) 650 mg Q4H PRN ORAL fever 06/19/16 18:00 07/19/16 17:59 06/19/16 21:39 Al Hydroxide/Mg Hydroxide (Mylanta II) 30 ml Q6H PRN ORAL dyspepsia 06/19/16 18:00 07/19/16 17:59 Albuterol/ Ipratropium 3 ml 3 ml EVERY 4 HOURS PRN HHN Shortness of Breath 06/19/16 18:00 06/24/16 17:59 Cefepime HCl/ Dextrose (Maxipime/D5W 50ml) 50 ml @ 100 mls/hr EVERY 12 HOURS IV 06/19/16 21:00 06/26/16 20:59 06/20/16 09:01 Heparin Sodium (Porcine) (Heparin 5000 units/ml) 5,000 units EVERY 12 HOURS SUBQ 06/19/16 21:00 07/19/16 20:59 06/20/16 09:03 Linezolid (Zyvox) 300 ml @ 300 mls/hr Q12HR IVPB 06/19/16 21:00 06/26/16 20:59 06/20/16 09:02 Nitroglycerin (Ntg) 0.4 mg Q5MIN X3 PRN SL Prn Chest Pain 06/19/16 18:00 07/19/16 17:59 Ondansetron HCl (Zofran) 4 mg Q6H PRN IVP Nausea & Vomiting 06/19/16 18:00 07/19/16 17:59 Polyethylene Glycol (Miralax) 17 gm DAILYPRN PRN ORAL Constipation 06/19/16 18:00 07/19/16 17:59 Promethazine HCl/ Codeine 5 ml 5 ml Q4H PRN ORAL For Cough 06/19/16 18:00 07/19/16 17:59 Temazepam (Restoril) 15 mg HSPRN PRN ORAL Insomnia 06/19/16 21:00 06/26/16 20:59 Assessment/Plan Problem List: (1) Pneumonia ICD Codes: J18.9 - Pneumonia, unspecified organism SNOMED: 437574898 (2) HTN (hypertension) ICD Codes: I10 - Essential (primary) hypertension SNOMED: 28590750 Qualifiers: Qualified Codes: I10 - Essential (primary) hypertension (3) Adverse reaction to antibiotic ICD Codes: T36.95XA - Adverse effect of unspecified systemic antibiotic, initial encounter SNOMED: 737984751, 160159816 Qualifiers: Qualified Codes: T36.95XA - Adverse effect of unspecified systemic antibiotic, initial encounter Assessment/Plan check sutum broad spectrum antibioitics check cultures CT chest. All medications and treatment were reviewed. SAGAR CHRIS Jun 20, 2016 11:28
--- NOTE | 2016-06-20 11:31 | Cardiac Electrophysiology PN ---
Subjective Subjective [id number] Objective Last 24 Hour Vital Signs Date Time Temp Pulse Resp B/P Pulse Ox O2 Delivery O2 Flow Rate FiO2 06/20/16 09:00 98.1 105 28 138/81 92 Venturi Mask 6.0 06/20/16 08:00 103 06/20/16 07:23 95 Venturi Mask 8.0 40 06/20/16 07:23 Venturi Mask 8.0 40 06/20/16 04:00 99.7 115 18 116/66 92 Venturi Mask 6.0 06/20/16 04:00 111 06/20/16 00:00 98.1 102 20 119/79 91 Venturi Mask 6.0 06/20/16 00:00 98 06/20/16 00:00 Venturi Mask 8.0 40 06/20/16 00:00 92 Venturi Mask 8.0 40 06/19/16 23:30 8.0 40 06/19/16 22:30 99.9 06/19/16 21:14 8.0 40 06/19/16 20:00 101.7 122 19 148/86 89 Nasal Cannula 4.0 06/19/16 20:00 122 06/19/16 19:40 113 37 95 Facial 50 06/19/16 19:38 99.0 124 22 116/83 99 Bi-pap 50 113 06/19/16 19:38 99.0 113 22 116/63 99 Bi-pap 50 06/19/16 17:31 99.0 111 26 131/71 98 Bi-pap 50 06/19/16 16:54 97 18 95 Facial 50 06/19/16 16:53 113 24 96 Nasal Cannula 3.0 36 06/19/16 16:53 36 06/19/16 16:52 120 25 95 Nasal Cannula 3.0 36 06/19/16 16:49 50 06/19/16 16:02 100.6 06/19/16 15:25 100.6 127 22 143/90 94 Nasal Cannula 4.0 06/19/16 15:00 99.3 06/19/16 14:56 99.3 124 22 145/80 94 Simple Mask 6.0 06/19/16 14:02 102.6 112 24 117/76 96 Nasal Cannula 4.0 06/19/16 13:15 117 26 Room Air 06/19/16 13:15 117 29 122/79 85 Room Air 06/19/16 12:35 102.6 122 20 134/73 86 Room Air Intake and Output 06/19/16 06/20/16 19:00 07:00 Intake Total 1000 ml 240 ml Output Total 200 ml Balance 800 ml 240 ml Intake Oral 240 ml IV Total 1000 ml Output Emesis 200 ml Laboratory Tests Test 06/19/16 13:03 06/19/16 14:05 06/19/16 14:20 06/20/16 03:30 White Blood Count 19.6 K/UL (4.8-10.8) H 13.6 K/UL (4.8-10.8) H Red Blood Count 4.49 M/UL (4.70-6.10) L 4.00 M/UL (4.70-6.10) L Hemoglobin 12.9 G/DL (14.2-18.0) L 11.6 G/DL (14.2-18.0) L Hematocrit 38.5 % (42.0-52.0) L 34.8 % (42.0-52.0) L Mean Corpuscular Volume 86 FL (80-99) 87 FL (80-99) Mean Corpuscular Hemoglobin 28.8 PG (27.0-31.0) 29.0 PG (27.0-31.0) Mean Corpuscular Hemoglobin Concent 33.5 G/DL (32.0-36.0) 33.4 G/DL (32.0-36.0) Red Cell Distribution Width 11.3 % (11.6-14.8) L 11.6 % (11.6-14.8) Platelet Count 370 K/UL (150-450) 292 K/UL (150-450) Mean Platelet Volume 8.7 FL (6.5-10.1) 8.1 FL (6.5-10.1) Neutrophils (%) (Auto) % (45.0-75.0) % (45.0-75.0) Lymphocytes (%) (Auto) % (20.0-45.0) % (20.0-45.0) Monocytes (%) (Auto) % (1.0-10.0) % (1.0-10.0) Eosinophils (%) (Auto) % (0.0-3.0) % (0.0-3.0) Basophils (%) (Auto) % (0.0-2.0) % (0.0-2.0) Differential Total Cells Counted 100 100 Neutrophils % (Manual) 83 % (45-75) H 84 % (45-75) H Lymphocytes % (Manual) 4 % (20-45) L 6 % (20-45) L Monocytes % (Manual) 8 % (1-10) 4 % (1-10) Eosinophils % (Manual) 0 % (0-3) 0 % (0-3) Basophils % (Manual) 0 % (0-2) 0 % (0-2) Band Neutrophils 5 % (0-8) 6 % (0-8) Platelet Estimate Adequate Adequate Platelet Morphology Normal Normal Hypochromasia 1+ Sodium Level 135 mEQ/L (135-145) 137 mEQ/L (135-145) Potassium Level 3.4 mEQ/L (3.4-4.9) 3.7 mEQ/L (3.4-4.9) Chloride Level 92 mEQ/L (98-107) L 95 mEQ/L (98-107) L Carbon Dioxide Level 24 mEQ/L (20-30) 22 mEQ/L (20-30) Anion Gap 19 (5-15) H 20 (5-15) H Blood Urea Nitrogen 9 mg/dL (7-23) 15 mg/dL (7-23) Creatinine 0.7 mg/dL (0.7-1.2) 2.4 mg/dL (0.7-1.2) #H Estimat Glomerular Filtration Rate > 60 mL/min (>60) 30.6 mL/min (>60) Glucose Level 131 mg/dL (74-106) H 107 mg/dL (74-106) H Calcium Level 8.7 mg/dL (8.6-10.2) 8.0 mg/dL (8.6-10.2) L Total Bilirubin 0.8 mg/dL (0.0-1.2) Aspartate Amino Transf (AST/SGOT) 22 U/L (5-40) Alanine Aminotransferase (ALT/SGPT) 29 U/L (3-41) Alkaline Phosphatase 75 U/L (40-129) Total Creatine Kinase 194 U/L (38-174) H Creatine Kinase MB 1.6 ng/mL (< 6.7) Creatine Kinase MB Relative Index 0.8 Total Protein 7.8 g/dL (6.6-8.7) Albumin 3.4 g/dL (3.5-5.2) L 2.6 g/dL (3.5-5.2) L Globulin 4.4 g/dL Albumin/Globulin Ratio 0.7 (1.0-2.7) L Lipase 60 U/L (< 60) Lactic Acid Level 1.90 mmol/L (0.66-2.22) Urine Color Brown Urine Appearance Clear Urine pH 6.5 (4.5-8.0) Urine Specific [place] 1.005 (1.005-1.035) Urine Protein 3+ (NEGATIVE) H Urine Glucose (UA) Negative (NEGATIVE) Urine Ketones Negative (NEGATIVE) Urine Occult Blood 2+ (NEGATIVE) H Urine Nitrite Negative (NEGATIVE) Urine Bilirubin 1+ (NEGATIVE) H Urine Ictotest Negative Urine Urobilinogen 8 MG/DL (0.0-1.0) H Urine Leukocyte Esterase 1+ (NEGATIVE) H Urine RBC 2-4 /HPF (0 - 0) H Urine WBC 2-4 /HPF (0 - 0) Urine Squamous Epithelial Cells Occasional /LPF Urine Bacteria Few /HPF (NONE) Urine Mucus Few /LPF (NONE/OCC) H Urine Legionella Antigen Pending Anisocytosis 1+ Phosphorus Level 6.4 mg/dL (2.5-4.8) H Ferritin 1556 ng/mL (10-230) H Microbiology Date/Time Source Procedure Growth Status 06/19/16 14:10 Sputum Expectorated Gram Stain - Final Resulted 06/19/16 14:10 Sputum Expectorated Sputum Culture - Preliminary NORMAL UPPER RESPIRATORY SONNY PRESENT Resulted 06/19/16 13:03 Nose Influenza Types A,B Antigen (KASSY) - Final Complete JOHN PENA Jun 20, 2016 11:31
--- NOTE | 2016-06-20 15:39 | Infectious Diseases Prog Note ---
Assessment/Plan Problems: (1) HCAP (healthcare-associated pneumonia) Assessment & Plan: improving, continue zyvox , and cefepime empirically , await sputum and blood culture, had allergic reaction to either vancomycin or zosyn, most likely vancomycin with red man syndrome, will avoid for now. (2) Vomiting Assessment & Plan: due to pneumonia, improving, continue supportive care , monitor labs, continue hydration (3) Adverse reaction to antibiotic Assessment & Plan: unclear whether due to vancomycin VS zosyn , most likely vancomycin since it happened fast after infusion, suspect red man syndrome, will check blood eosinophils counts in blood. avoid both classes of antibiotics for now, ok to use cephalosporins since he received it last admission with no reaction (4) Histoplasmosis pneumonia Assessment & Plan: continue itraconazole, repeat CT scan Subjective Constitutional: Reports: fatigue, fever Respiratory: Reports: other - wheezing, productive cough Allergies: Coded Allergies: PIPERACILLIN (Verified Adverse Reaction, Intermediate, 06/20/16) pt developed diffuse macular rash per ER MD notes. unclear if due to vanco or zosyn TAZOBACTAM (Verified Adverse Reaction, Intermediate, 06/20/16) pt developed diffuse macular rash per ER MD notes. unclear if due to vanco or zosyn VANCOMYCIN (Verified Adverse Reaction, Intermediate, 06/20/16) pt developed diffuse macular rash per ER MD notes. unclear if due to vanco or zosyn All Systems: reviewed and negative except above Subjective he feels better today, still have productive cough with yellowish phlegm, less fever, no chills, no vomiting. no skin rash or hives, tolerated current antibiotics well. Objective Vital Signs Last 24 Hour Vital Signs Date Time Temp Pulse Resp B/P Pulse Ox O2 Delivery O2 Flow Rate FiO2 06/20/16 14:04 103 06/20/16 12:00 97.2 96 24 128/81 96 Venturi Mask 6.0 06/20/16 09:00 98.1 105 28 138/81 92 Venturi Mask 6.0 06/20/16 08:00 103 06/20/16 07:23 95 Venturi Mask 8.0 40 06/20/16 07:23 Venturi Mask 8.0 40 06/20/16 04:00 99.7 115 18 116/66 92 Venturi Mask 6.0 06/20/16 04:00 111 06/20/16 00:00 98.1 102 20 119/79 91 Venturi Mask 6.0 06/20/16 00:00 98 06/20/16 00:00 Venturi Mask 8.0 40 06/20/16 00:00 92 Venturi Mask 8.0 40 06/19/16 23:30 8.0 40 06/19/16 22:30 99.9 06/19/16 21:14 8.0 40 06/19/16 20:00 101.7 122 19 148/86 89 Nasal Cannula 4.0 06/19/16 20:00 122 06/19/16 19:40 113 37 95 Facial 50 06/19/16 19:38 99.0 124 22 116/83 99 Bi-pap 50 113 06/19/16 19:38 99.0 113 22 116/63 99 Bi-pap 50 06/19/16 17:31 99.0 111 26 131/71 98 Bi-pap 50 06/19/16 16:54 97 18 95 Facial 50 06/19/16 16:53 113 24 96 Nasal Cannula 3.0 36 06/19/16 16:53 36 06/19/16 16:52 120 25 95 Nasal Cannula 3.0 36 06/19/16 16:49 50 06/19/16 16:02 100.6 Height (Feet): 5 Height (Inches): 5.00 Weight (Pounds): 170 General Appearance: WD/WN, no acute distress HEENT: normocephalic, atraumatic, anicteric, mucous membranes moist, PERRL Respiratory/Chest: chest wall non-tender, normal breath sounds, no respiratory distress, no accessory muscle use, decreased breath sounds, crackles/rales, expiratory wheezing Cardiovascular: normal peripheral pulses, normal rate, regular rhythm, no gallop/murmur Abdomen: normal bowel sounds, soft, non tender, no organomegaly, non distended , no mass Extremities: no cyanosis, no clubbing Skin: no rash, no lesions, no ulcers Microbiology Date/Time Source Procedure Growth Status 06/19/16 14:10 Sputum Expectorated Gram Stain - Final Resulted 06/19/16 14:10 Sputum Expectorated Sputum Culture - Preliminary NORMAL UPPER RESPIRATORY SONNY PRESENT Resulted 06/19/16 13:03 Nose Influenza Types A,B Antigen (KASSY) - Final Complete Laboratory Tests Test 06/20/16 03:30 White Blood Count 13.6 K/UL (4.8-10.8) H Red Blood Count 4.00 M/UL (4.70-6.10) L Hemoglobin 11.6 G/DL (14.2-18.0) L Hematocrit 34.8 % (42.0-52.0) L Mean Corpuscular Volume 87 FL (80-99) Mean Corpuscular Hemoglobin 29.0 PG (27.0-31.0) Mean Corpuscular Hemoglobin Concent 33.4 G/DL (32.0-36.0) Red Cell Distribution Width 11.6 % (11.6-14.8) Platelet Count 292 K/UL (150-450) Mean Platelet Volume 8.1 FL (6.5-10.1) Neutrophils (%) (Auto) % (45.0-75.0) Lymphocytes (%) (Auto) % (20.0-45.0) Monocytes (%) (Auto) % (1.0-10.0) Eosinophils (%) (Auto) % (0.0-3.0) Basophils (%) (Auto) % (0.0-2.0) Differential Total Cells Counted 100 Neutrophils % (Manual) 84 % (45-75) H Lymphocytes % (Manual) 6 % (20-45) L Monocytes % (Manual) 4 % (1-10) Eosinophils % (Manual) 0 % (0-3) Basophils % (Manual) 0 % (0-2) Band Neutrophils 6 % (0-8) Platelet Estimate Adequate Platelet Morphology Normal Anisocytosis 1+ Sodium Level 137 mEQ/L (135-145) Potassium Level 3.7 mEQ/L (3.4-4.9) Chloride Level 95 mEQ/L (98-107) L Carbon Dioxide Level 22 mEQ/L (20-30) Anion Gap 20 (5-15) H Blood Urea Nitrogen 15 mg/dL (7-23) Creatinine 2.4 mg/dL (0.7-1.2) #H Estimat Glomerular Filtration Rate 30.6 mL/min (>60) Glucose Level 107 mg/dL (74-106) H Calcium Level 8.0 mg/dL (8.6-10.2) L Phosphorus Level 6.4 mg/dL (2.5-4.8) H Ferritin 1556 ng/mL (10-230) H Albumin 2.6 g/dL (3.5-5.2) L Current Medications Medications (Trade) Dose Ordered Sig/Keila Route PRN Reason Start Time Stop Time Status Last Admin Dose Admin Acetaminophen (Tylenol) 650 mg Q4H PRN ORAL fever 06/19/16 18:00 07/19/16 17:59 06/19/16 21:39 Al Hydroxide/Mg Hydroxide (Mylanta II) 30 ml Q6H PRN ORAL dyspepsia 06/19/16 18:00 07/19/16 17:59 Albuterol/ Ipratropium 3 ml 3 ml EVERY 4 HOURS PRN HHN Shortness of Breath 06/19/16 18:00 06/24/16 17:59 Cefepime HCl/ Dextrose (Maxipime/D5W 50ml) 50 ml @ 100 mls/hr EVERY 12 HOURS IV 06/19/16 21:00 06/26/16 20:59 06/20/16 09:01 Heparin Sodium (Porcine) (Heparin 5000 units/ml) 5,000 units EVERY 12 HOURS SUBQ 06/19/16 21:00 07/19/16 20:59 06/20/16 09:03 Linezolid (Zyvox) 300 ml @ 300 mls/hr Q12HR IVPB 06/19/16 21:00 06/26/16 20:59 06/20/16 09:02 Nitroglycerin (Ntg) 0.4 mg Q5MIN X3 PRN SL Prn Chest Pain 06/19/16 18:00 07/19/16 17:59 Ondansetron HCl (Zofran) 4 mg Q6H PRN IVP Nausea & Vomiting 06/19/16 18:00 07/19/16 17:59 Polyethylene Glycol (Miralax) 17 gm DAILYPRN PRN ORAL Constipation 06/19/16 18:00 07/19/16 17:59 Promethazine HCl/ Codeine 5 ml 5 ml Q4H PRN ORAL For Cough 06/19/16 18:00 07/19/16 17:59 Temazepam (Restoril) 15 mg HSPRN PRN ORAL Insomnia 06/19/16 21:00 06/26/16 20:59 Erin Navarrete M.D. Jun 20, 2016 15:39
--- NOTE | 2016-06-20 16:04 | Diagnostic Imaging Report ---
Indications: Cough, fever and chills, vomiting; recent history of pulmonary histoplasmosis Technique: Continuous helical CT imaging of the abdomen and pelvis was performed with automatic exposure control following administration of oral contrast only, on a Siemens sensation [address] scanner. Axial images were reconstructed at 5 mm slice thickness and interval. Coronal images were reconstructed at 5 mm slice thickness. No IV contrast was administered per requesting physicians order, despite no contraindications listed in either submitted clinical data or tech note.. CTDI volume(s): 31 mGy Total DLP: 1076 mGy-cm Findings: Comparison: Contrast-enhanced CT thorax 06/02 16 Lack of IV contrast limits evaluation. Large cavitary mass versus a thickwalled fluid collection has developed in the anterior segment of the right upper lobe and/or medial segment of the right middle lobe, in region of largest of multiple foci of parenchymal consolidation on previous exam. It contains an air-fluid level in it is surrounded by consolidated lung with air bronchograms. Only one of 2 smaller nodules in the anterior aspect of the right lower lobe on previous exam is currently demonstrated, decreased in size from previous exam, currently 15 mm. 2 cm irregular opacity previously present in the posterior segment of left upper lobe has resolved. Multiple new patchy, partially confluent foci of parenchymal consolidation have developed in the left upper lobe and bilateral lower lobes. Small right pleural effusion is suggested. Heart remains normal in size. No pericardial abnormality is demonstrated. Multiple mediastinal lymph nodes have increased in size, largest 1.5 cm. Right hilum cannot be adequately evaluated due to adjacent mass and parenchymal consolidation. Chest wall soft tissues remain nonfocal. Liver parenchyma remains diffusely decreased attenuation. 3 cm fatty mass again noted emanating from the right adrenal gland. No focal skeletal abnormality identified. IMPRESSION: Findings the bowel development 9 cm parenchymal abscess in the right pulmonary upper/middle lobe(s). Surrounding parenchymal consolidation may be atelectatic and/or pneumonic in nature. Thoracic surgery consultation recommended. This is not amenable to percutaneous catheter drainage. New multifocal parenchymal airspace opacities suspicious for disseminated pneumonia Persistence of one of 2 prior right lower lobe nodules, smaller; other may have resolved or is obscured by current parenchymal consolidation. Resolution of previous left upper lobe focal infiltrate Development of small right pleural effusion, likely reactive to above Increase in mediastinal adenopathy Hepatic steatosis Right adrenal myelolipoma
--- NOTE | 2016-06-20 19:58 | Consultation ---
DATE OF CONSULTATION: 06/20/2016 CARDIOLOGY CONSULTATION REFERRING PHYSICIAN: Jesse Dean M.D. REASON FOR CONSULTATION: Tachycardia and hypertension. HISTORY OF PRESENT ILLNESS: The patient is a 35-year-old gentleman who was recently admitted about a month ago with history of Forbes's palsy and multiple cavitary lesions. The patient also history of hypertension and tachycardia. The patient was brought to the emergency room for cough, fever, and vomiting that started a day earlier. The patient was treated with which was helping. The patient however came to the emergency room for worsening of fever and shortness of breath. REVIEW OF SYSTEMS: Review of systems was thoroughly performed and was negative other than what was mentioned in the history of present illness. PAST MEDICAL HISTORY: 1. Hypertension. 2. History of tachycardia. 3. Histoplasmosis and multiple cavitary lesion. ALLERGIES: There is no known drug allergies. PHYSICAL EXAMINATION: VITAL SIGNS: Blood pressure is 138/81, pulse 105, respirations 28, and temperature 98.1, with maximum temperature was 102. NECK: Shows no JVD. LUNGS: Coarse rhonchi. CARDIOVASCULAR: Shows regular S1 and S2 with no gallop or murmur. ABDOMEN: Soft. EXTREMITIES: No pitting edema. LABORATORY AND DIAGNOSTIC DATA: Telemetry showed episodes of sinus tachycardia rate of up to 140s. His 12-lead EKG showed sinus tachycardia at a rate of 122. Labs show white count 13.7, hemoglobin 11.6, hematocrit 34.8, and platelet count of 292,000. Sodium 137, potassium 3.7, BUN 15, creatinine of 2.4, and glucose of 107. CK is 194. ASSESSMENT/PLAN: 1. Tachycardia. The rhythm strips and EKG purely sinus tachycardia is likely due to patient's frequent, bilateral pulmonary process, abdominal pain. There is no evidence of atrial fibrillation or any other supraventricular tachycardia. We will watch the patient on telemetry if the patient is more stabilized. 2. History of hypertension, blood pressure currently is stable range between 190 to 138 systolic, is off any antihypertensives. 3. History of histoplasmosis. 4. Shortness of breath due to healthcare-associated pneumonia. The patient was evaluated by ID and was started empiric Zyvox. 5. Adverse reaction to antibiotics, unclear whether it was due to vancomycin versus Zosyn but could be due to red man syndrome after rapid injection of vancomycin. Further evaluation is pending per Dr. Navarrete. Thank you very much, Dr. Dean, for allowing me to participate in the care of this patient. Please do not hesitate to contact me for any questions regarding my evaluation. Chema Hunter M.D. DR: Jonathan JOB#: [id number] CC:
[2016-06-20] MEDS: Promethazine/Codeine 5ml UD ORAL PRN (20:11)
--- NOTE | 2016-06-20 21:28 | Cardiology Report ---
APPROVED REPORT EKG Measurement Heart [id number] ID [id number] Sinus tachycardia Otherwise normal ECG
--- NOTE | 2016-06-20 22:18 | Consultation ---
DATE OF CONSULTATION: INFECTIOUS DISEASES CONSULTATION CONSULTING PHYSICIAN: Erin Navarrete M.D. REQUESTING PHYSICIAN: Jesse Dean M.D. REASON FOR CONSULTATION: Pneumonia with sepsis. HISTORY OF THE PRESENT ILLNESS: The patient is a 35-year-old male, who was admitted to [facility] a couple of weeks ago with a chief complaint of pleuritic chest pain, was found to have multi-lung nodules on CT scan with workup positive for histoplasmosis, was sent home on itraconazole to complete 3 months course of therapy, developed fever right after discharge from the hospital and dry cough. He felt febrile almost every day after he was discharged. He started coughing greenish-yellowish phlegm. He felt weak and tired and he was hot all the time even when it is cold outside. The patient had low appetite at the same time, could not tolerate oral diet. He vomited couple of times and he presented to the emergency room with fever and vomiting. His temperature was 102.6 in the emergency room. He was tachycardic at 122. He was saturating 86% on room air. Chest x-ray showed evidence of pneumonia with right lower lobe effusion. The patient received antibiotics in the emergency room including Zosyn and vancomycin and he developed allergic reaction, most likely due to vancomycin with red man syndrome. So, I was consulted by the primary provider for antibiotics recommendation and further management. PAST MEDICAL HISTORY: Significant for histoplasmosis of the lungs and cavitary lung lesion. PAST SURGICAL HISTORY: Negative. ALLERGIES: Probably he is allergic to vancomycin, which he reacted to in the emergency room. MEDICATIONS: The patient received vancomycin and Zosyn in the emergency room mainly. For the rest of the medications, please refer to the MAR. SOCIAL HISTORY: He worked in [place] [employer] [place] [employer]. He denied using any drugs, tobacco, or alcohol. FAMILY HISTORY: Negative for malignancy, recurrent infection, or immunocompromised condition. REVIEW OF SYSTEMS: The 14-point of system reviewed were all negative apart from the one I mentioned above in my History and Physical. PHYSICAL EXAMINATION: VITAL SIGNS: Temperature 101.7, pulse 122, respirations 19, blood pressure 148/86, and pulse oximetry of 89% on 4 liters nasal cannula. GENERAL: This is a young male, lying in bed, awake, alert, coughing yellowish phlegm and in mild distress. HEENT: Normocephalic and atraumatic. Pupils are reactive to light equally. Moist oral mucosa. No exudate. NECK: Supple. No lymphadenopathy. CARDIOVASCULAR: He is tachycardic. S1 and S2 positive. No murmur. LUNGS: He had wheezing mainly at the bases with diminished breathing sounds at the right lower lobe. No rhonchi. Normal breathing effort. ABDOMEN: Soft, obese, nontender, and nondistended. Positive bowel sounds. No hepatosplenomegaly or ascites. EXTREMITIES: No edema. No cyanosis. LABORATORY AND DIAGNOSTIC DATA: Showed white count of 19.6, hemoglobin of 12.9, hematocrit of 38.5, and platelet count of 370,000. BUN of 9, creatinine of 0.7, and glucose of 131. AST of 22 and ALT of 29. Urinalysis showed +1 leukocyte esterase, WBC 2 to 4, red blood cells 2 to 4, and few mucus. Microbiology, influenza screening for A and B both negative. Imaging, chest x-ray showed right lower lobe effusion. ASSESSMENT AND PLAN: 1. Healthcare-acquired pneumonia. We will start the patient empirically on Zyvox and continue cefepime. We will send sputum culture and blood culture. The patient had allergic reaction either to vancomycin or Zosyn, most likely of vancomycin with red man syndrome since it happened quickly. We will check his eosinophil count in the blood to confirm. 2. Vomiting. Suspect due to healthcare-acquired pneumonia. Continue supportive care. Monitor laboratories. Continue hydration. 3. Adverse reaction to antibiotics. It is unclear whether he reacted to vancomycin or Zosyn since he received both 15 minutes apart, but since his reaction happened quickly, most likely vancomycin related with red man syndrome. We will check his blood eosinophil count, avoid both classes of antibiotics for now. We will proceed with cephalosporin since he received it on last admission with no reaction and add Zyvox to cover for healthcare-acquired pneumonia. 4. Histoplasmosis pneumonia with cavitary lung lesion. Continue itraconazole. We will repeat CT scan of the chest. Erin Navarrete M.D. DR: ROXANNE JOB#: [id number] CC:
--- NOTE | 2016-06-20 22:27 | History and Physical Report ---
DATE OF ADMISSION: 06/19/2016 HISTORY OF PRESENT ILLNESS: The patient is admitted for pneumonia. The patient was just recently discharged from the hospital for diagnosis of histoplasmosis pneumonia. The patient currently with a new pneumonia apparently on the x-ray but needs to be confirmed by the radiologist, it is not confirmed at this point. The patient also developed allergic reaction to possibly some of the antibiotics given in the ER at [facility] and was given epi. The patient is complaining of rash, itching, and cough. PAST MEDICAL HISTORY: Recent diagnosis of histoplasmosis pneumonia, cavitary lung lesion, hypertension, constipation. PAST SURGICAL HISTORY: Denies. MEDICATIONS: Itraconazole. ALLERGIES: Vancomycin, tazobactam, and piperacillin. SOCIAL HISTORY: The patient denies history of alcohol or street drugs. FAMILY HISTORY: Noncontributory. REVIEW OF SYSTEMS: HEENT: Denies headache. Respiratory: Reports shortness of breath and cough. Cardiovascular: No chest pain. Gastrointestinal: Denies nausea, vomiting, or diarrhea. Extremities: Denies pain in the extremities. Central nervous system: Denies change in vision or speech but feels weak. Skin: The patient has itching as well. PHYSICAL EXAMINATION: VITAL SIGNS: Temperature is 98.1 degrees, pulse 102, and blood pressure 197/79. HEENT: PERRLA. NECK: Supple. No lymphadenopathy. CHEST: Clear to auscultation. GASTROINTESTINAL: Soft, nontender, and nondistended. No organomegaly. EXTREMITIES: Denies pain. CENTRAL NERVOUS SYSTEM: No change in vision or speech pattern. LABORATORY DATA: WBC of 19.6, hemoglobin of 13.9, and platelets 370,000. Sodium 135, potassium 3.4, BUN 9, creatinine 0.7, glucose 131. ASSESSMENT: Pneumonia with possible allergic reaction to antibiotics given in the emergency room at [facility]. I have asked Dr. Hunter, Dr. Navarrete, and Dr. Servin see the patient for the above-mentioned diagnoses and treatment. Jesse Dean M.D. DR: Crystal JOB#: [id number] CC:
[2016-06-21] VITALS (29 sets, daily range): BP systolic 114–162; BP diastolic 65–93
[2016-06-21] MEDS: Promethazine/Codeine 5ml UD ORAL PRN (00:14)
[2016-06-21] MEDS ORDERED: Nitroglycerin Subl 0.4mg tab (Bottle Of 25) SL PRN ×2 (03:00→12:45)
[2016-06-21] MEDS ORDERED: DuoNeb 0.5-3(2.5)mg/3ml neb HHN PRN (05:00)
[2016-06-21] MEDS ORDERED: Mylanta II UD 30ml ORAL PRN (06:00)
[2016-06-21] MEDS ORDERED: Promethazine/Codeine 5ml UD ORAL PRN (06:00)
[2016-06-21 06:31] LABS: MEAN CORPUSCULAR HEMOGLOBIN 29.4 PG (27.0-31.0); MEAN CORPUSCULAR HGB CONC 34.2 G/DL (32.0-36.0); MEAN CORPUSCULAR VOLUME 86 FL (80-99); MEAN PLATELET VOLUME 7.9 FL (6.5-10.1); PLATELET COUNT 334 K/UL (150-450); RED BLOOD COUNT 3.95 M/UL (4.70-6.10); RED CELL DISTRIBUTION WIDTH 11.4 % (11.6-14.8); WHITE BLOOD COUNT 14.9 K/UL (4.8-10.8)
[2016-06-21 06:48] LABS: INR 1.2 (0.9-1.1)
[2016-06-21 06:54] LABS: CREATININE 6.3 mg/dL (0.7-1.2); GLOMERULAR FILTRATION RATE 10.1 mL/min (>60); POTASSIUM 3.5 mEQ/L (3.4-4.9)
[2016-06-21 07:08] LABS: THYROID STIMULATING HORMONE 0.024 uIU/mL (0.300-4.500)
[2016-06-21] MEDS ORDERED: Heparin 5000 units/ml inj SUBQ SCH (09:00)
[2016-06-21 10:17] LABS: BAND NEUTROPHILS % (MANUAL) 2 % (0-8); BASOPHILS % (MANUAL) 0 % (0-2); EOSINOPHILS % (MANUAL) 3 % (0-3); LYMPHOCYTES % (MANUAL) 5 % (20-45); NEUTROPHILS % (MANUAL) 81 % (45-75); PLATELET ESTIMATE ADEQUATE; PLATELET MORPHOLOGY NORMAL; TOTAL CELLS COUNTED 100
[2016-06-21 10:18] LABS: HYPOCHROMASIA 1+
[2016-06-21] MEDS ORDERED: Lidocaine 1% Plain 30 ml INJ ONE (10:36)
[2016-06-21] MEDS ORDERED: Sodium Bicarbonate 8.4% 50ml Inj ONE (10:37)
[2016-06-21] MEDS ORDERED: Heparin 2000 units/Ns 1000ml 1,000 ML ONE (10:37)
[2016-06-21] MEDS ORDERED: Heparin Sod 1000 units/ml 10ml ONE (10:38)
--- NOTE | 2016-06-21 10:40 | Consultation ---
Consult Note Consult Note asked to evaluate for Renal Failure- The patient is a 35-year-old male who was admitted to this hospital 1 month prior and diagnosed with histoplasmosis with multiple cavitary lesions of the lungs presenting for coughing, fever, and vomiting which began one day prior. The patient was DC'ed home and treated with itraconazole which the patient states was helping. The patient also admits to subjective fever and chills. The patient denies ny pain, rash, hemoptysis, hematemesis, diarrhea, constipation, chest pain, numbness or tingling of extremities, a Constitutional: Reports: fatigue, fever Respiratory: Reports: other - wheezing, productive cough Allergies: Coded Allergies: PIPERACILLIN TAZOBACTAM VANCOMYCIN . Assessment/Plan Acute Oliguric Renal Failure: ? Sepsis, ? Drugs Others: (1) HCAP (healthcare-associated pneumonia) (2) Vomiting (3) Adverse reaction to antibiotic (4) Histoplasmosis pneumonia Plan: Hameed- Dialysis access HD MILA GARCIA Jun 21, 2016 10:40
--- NOTE | 2016-06-21 11:48 | Consultation ---
DATE OF CONSULTATION: 06/20/2016 HEMATOLOGY/ONCOLOGY CONSULTATION REQUESTING PHYSICIAN: Jesse Dean M.D. IDENTIFYING DATA: Dear Dr. Jesse Dean, The patient is a pleasant 35-year-old male with a past medical history that is significant for eosinophilia, leukocytosis, history of anemia secondary to chronic disease, recently admitted to [facility] and was diagnosed with histoplasmosis and has been on itraconazole at home and at this time presents to hospital for readmission for cough, fever and vomiting. He states that itraconazole has been helping, however, continues to have fatigue noted and therefore he was admitted. It was noted the patient had anemia and therefore hematology service was consulted for further evaluation and treatment. PAST MEDICAL HISTORY: Histoplasmosis. PAST SURGICAL HISTORY: None noted. MEDICATIONS: Itraconazole. Ceftriaxone, heparin subcutaneous, linezolid, and cefepime. SOCIAL HISTORY: The patient lives with . No alcohol, tobacco or drug use. FAMILY HISTORY: Noncontributory. REVIEW OF SYSTEMS: Constitutional: Some fevers and chills noted. Skin: No rashes, lumps, or itching. HEENT: No headache, hearing, or vision changes. Breasts: No lumps, pain, or discharge. Pulmonary: No cough, sputum, or shortness of breath. Cardiovascular: No chest pain, tightness, or palpitations. Gastrointestinal: No nausea, vomiting, or diarrhea. Genitourinary: No dysuria, frequency, or urgency. Musculoskeletal: No joint swelling, muscle pain, or trauma. Neurological: No dizziness, fainting or seizures. PHYSICAL EXAMINATION: GENERAL: In no acute distress. VITAL SIGNS: Temperature is 98.1 degrees Fahrenheit, pulse rate 105, respiratory rate 20, blood pressure 138/81, and pulse oximetry was 92% on venti mask. PULMONARY: Decreased breath sounds bilaterally. Some crackles on the right side. CARDIOVASCULAR: Tachycardic. GASTROINTESTINAL: Abdomen is soft, nontender, and nondistended. EXTREMITIES: There is 1+ edema. LABORATORY AND DIAGNOSTIC DATA: WBC 13.6, hemoglobin 9.6, hematocrit 30.5 and platelet count . BUN of 15, creatinine 2.1. PTT of . ASSESSMENT: 1. Anemia secondary to chronic disease. 2. Decreased hemoglobin and hematocrit, rule out gastrointestinal bleed. 3. Leukocytosis due to underlying infection with pneumonia and/or histoplasmosis. 4. Nausea and vomiting potentially secondary to severe dehydration. 5. Community-acquired pneumonia on chest x-ray, is on linezolid and cefepime. 6. Histoplasmosis pneumonia. The patient to repeat CAT scan. 7. Eosinophilia history that is resolved. 8. Acute kidney injury. RECOMMENDATIONS: 1. Monitor counts and maintain hemoglobin above 7. 2. Antibiotics per ID service. 3. Followup on Pulmonary evaluation. 4. CAT scan of the chest. 5. Labs review. 6. Repeat smear ordered. 7. Have reviewed viral etiology from before, have reviewed viral studies from before. 8. DVT prophylaxis. 9. Gastrointestinal prophylaxis as needed. 10. Discussed with staff. Thank you, Dr. Jesse Dean, for this kind referral. Please do not hesitate to contact me with any further questions. Gerry Winston M.D. DR: LARA JOB#: [id number] CC:
--- NOTE | 2016-06-21 12:55 | General Progress Note ---
Assessment/Plan Problem List: (1) Histoplasmosis pneumonia ICD Codes: B39.2 - Pulmonary histoplasmosis capsulati, unspecified SNOMED: 198312364 (2) Vomiting ICD Codes: R11.10 - Vomiting, unspecified SNOMED: 960143477 (3) Adverse reaction to antibiotic ICD Codes: T36.95XA - Adverse effect of unspecified systemic antibiotic, initial encounter SNOMED: 938526224, 738507455 Qualifiers: Qualified Codes: T36.95XA - Adverse effect of unspecified systemic antibiotic, initial encounter (4) Cavitary lung disease ICD Codes: J98.4 - Other disorders of lung SNOMED: 06597878 (5) Pneumonia ICD Codes: J18.9 - Pneumonia, unspecified organism SNOMED: 076375307 (6) HTN (hypertension) ICD Codes: I10 - Essential (primary) hypertension SNOMED: 50440297 Qualifiers: Qualified Codes: I10 - Essential (primary) hypertension (7) Hyperlipidemia, mixed ICD Codes: E78.2 - Mixed hyperlipidemia SNOMED: 964849675 (8) Pleurisy ICD Codes: R09.1 - Pleurisy SNOMED: 442076250 Status: progressing Assessment/Plan new pna afebrle pleursy abx per id and pulmonary reviewed chart and labs Subjective ROS Limited/Unobtainable: Yes Allergies: Coded Allergies: PIPERACILLIN (Verified Adverse Reaction, Intermediate, 06/20/16) pt developed diffuse macular rash per ER MD notes. unclear if due to vanco or zosyn TAZOBACTAM (Verified Adverse Reaction, Intermediate, 06/20/16) pt developed diffuse macular rash per ER MD notes. unclear if due to vanco or zosyn VANCOMYCIN (Verified Adverse Reaction, Intermediate, 06/20/16) pt developed diffuse macular rash per ER MD notes. unclear if due to vanco or zosyn Objective Last 24 Hour Vital Signs Date Time Temp Pulse Resp B/P Pulse Ox O2 Delivery O2 Flow Rate FiO2 06/21/16 11:40 94 25 5.0 06/21/16 11:38 94 25 5.0 06/21/16 11:32 94 25 5.0 06/21/16 11:30 25 125/82 90 Room Air 06/21/16 11:26 94 26 5.0 06/21/16 11:20 26 127/81 93 Room Air 06/21/16 11:15 20 135/87 97 Room Air 06/21/16 11:14 94 28 5.0 06/21/16 11:07 97.0 06/21/16 11:05 94 28 5.0 06/21/16 11:00 94 28 126/87 95 Room Air 06/21/16 10:55 96 06/21/16 10:45 96 23 134/86 95 Room Air 06/21/16 08:32 97.2 94 20 114/70 98 Venturi Mask 5.0 94 06/21/16 07:25 Room Air 21 06/21/16 07:25 95 Room Air 21 06/21/16 04:00 98.0 74 20 130/72 96 Room Air 06/21/16 01:30 98.2 98 20 134/83 Venturi Mask 06/21/16 00:00 98.2 98 24 134/83 99 Venturi Mask 06/20/16 21:15 98.4 105 20 138/90 96 Venturi Mask 6.0 06/20/16 21:09 98.4 105 20 138/90 96 Venturi Mask 06/20/16 20:00 98.4 105 20 138/90 96 Venturi Mask 6.0 06/20/16 19:49 110 06/20/16 19:30 94 Venturi Mask 8.0 40 06/20/16 19:30 Venturi Mask 8.0 40 06/20/16 18:00 98.0 105 20 132/78 Venturi Mask 6.0 06/20/16 16:00 97.8 110 22 126/80 95 Venturi Mask 6.0 06/20/16 14:04 103 Intake and Output 06/20/16 06/21/16 19:00 07:00 Intake Total 1290 ml 410 ml Balance 1290 ml 410 ml Intake Oral 480 ml 60 ml IV Total 810 ml 350 ml # Voids 2 # Bowel Movements 1 Laboratory Tests 06/21/16 05:50: White Blood Count 14.9H, Red Blood Count 3.95L, Hemoglobin 11.6L, Hematocrit 34.0L, Mean Corpuscular Volume 86, Mean Corpuscular Hemoglobin 29.4, Mean Corpuscular Hemoglobin Concent 34.2, Red Cell Distribution Width 11.4L, Platelet Count 334, Mean Platelet Volume 7.9, Neutrophils (%) (Auto) , Lymphocytes (%) (Auto) , Monocytes (%) (Auto) , Eosinophils (%) (Auto) , Basophils (%) (Auto) , Differential Total Cells Counted 100, Neutrophils % ( Manual) 81H, Lymphocytes % (Manual) 5L, Monocytes % (Manual) 9, Eosinophils % ( Manual) 3, Basophils % (Manual) 0, Band Neutrophils 2, Platelet Estimate Adequate, Platelet Morphology Normal, Hypochromasia 1+, Prothrombin Time 12.0H, Prothromb Time International Ratio 1.2H, Activated Partial Thromboplast Time 31 , Sodium Level 134L, Potassium Level 3.5, Chloride Level 93L, Carbon Dioxide Level 23, Anion Gap 18H, Blood Urea Nitrogen 32H, Creatinine 6.3#H, Estimat Glomerular Filtration Rate 10.1, Glucose Level 112H, Calcium Level 8.0L, Pro-B- Type Natriuretic Peptide 1142H, Thyroid Stimulating Hormone (TSH) 0.024L, Free Thyroxine 1.40 Height (Feet): 5 Height (Inches): 5.00 Weight (Pounds): 170 EENT: PERRL/EOMI Neck: supple Cardiovascular: normal rate Respiratory/Chest: lungs clear Abdomen: non tender Jesse Dean MD Jun 21, 2016 12:55
[2016-06-21] MEDS ORDERED: Miralax 17gm pkt ORAL PRN ×2 (13:00→18:00)
[2016-06-21] MEDS ORDERED: Pantoprazole Inj IVP SCH (13:00)
[2016-06-21] MEDS: metroNIDAZOLE 500mg 100 ML IVPB SCH ×2 (13:44→21:52)
[2016-06-21] MEDS: Pantoprazole Inj IVP SCH (13:44)
[2016-06-21] MEDS ORDERED: metroNIDAZOLE 500mg 100 ML IVPB SCH (14:00)
--- NOTE | 2016-06-21 15:59 | Diagnostic Imaging Report ---
Indications: COUGH Technique: Portable AP chest Findings: Comparison: 06/09/2016 Ill-defined opacity has developed in the right lung base. Overlying hazy opacity lower right hemithorax. Elevation of the apparent right hemidiaphragm. Mild thickening of right minor fissure. Left lung and pleura remain clear. Cardiomediastinal silhouette stable. IMPRESSION: Findings suggest development of right lower lobe pneumonia with volume loss and adjacent pleural effusion
--- NOTE | 2016-06-21 16:07 | Cardiac Electrophysiology PN ---
Subjective Subjective Transferred to ICU and was started with his first dialysis.Alert. at bedside. Objective Last 24 Hour Vital Signs Date Time Temp Pulse Resp B/P Pulse Ox O2 Delivery O2 Flow Rate FiO2 06/21/16 15:00 98 22 142/78 95 Room Air 06/21/16 14:00 92 18 138/82 96 Room Air 06/21/16 13:00 90 18 141/79 95 Room Air 06/21/16 12:00 98.1 94 22 128/82 94 Room Air 06/21/16 11:40 94 25 5.0 06/21/16 11:38 94 25 5.0 06/21/16 11:32 94 25 5.0 06/21/16 11:30 25 125/82 90 Room Air 06/21/16 11:26 94 26 5.0 06/21/16 11:20 26 127/81 93 Room Air 06/21/16 11:15 20 135/87 97 Room Air 06/21/16 11:14 94 28 5.0 06/21/16 11:07 97.0 06/21/16 11:05 94 28 5.0 06/21/16 11:00 94 28 126/87 95 Room Air 06/21/16 10:55 96 06/21/16 10:45 96 23 134/86 95 Room Air 06/21/16 08:32 97.2 94 20 114/70 98 Venturi Mask 5.0 94 06/21/16 07:25 Room Air 21 06/21/16 07:25 95 Room Air 21 06/21/16 04:00 98.0 74 20 130/72 96 Room Air 06/21/16 01:30 98.2 98 20 134/83 Venturi Mask 06/21/16 00:00 98.2 98 24 134/83 99 Venturi Mask 06/20/16 21:15 98.4 105 20 138/90 96 Venturi Mask 6.0 06/20/16 21:09 98.4 105 20 138/90 96 Venturi Mask 06/20/16 20:00 98.4 105 20 138/90 96 Venturi Mask 6.0 06/20/16 19:49 110 06/20/16 19:30 94 Venturi Mask 8.0 40 06/20/16 19:30 Venturi Mask 8.0 40 06/20/16 18:00 98.0 105 20 132/78 Venturi Mask 6.0 Intake and Output 06/20/16 06/21/16 18:59 06:59 Intake Total 1290 ml 410 ml Balance 1290 ml 410 ml Intake Oral 480 ml 60 ml IV Total 810 ml 350 ml # Voids 2 # Bowel Movements 1 Laboratory Tests Test 06/21/16 05:50 White Blood Count 14.9 K/UL (4.8-10.8) H Red Blood Count 3.95 M/UL (4.70-6.10) L Hemoglobin 11.6 G/DL (14.2-18.0) L Hematocrit 34.0 % (42.0-52.0) L Mean Corpuscular Volume 86 FL (80-99) Mean Corpuscular Hemoglobin 29.4 PG (27.0-31.0) Mean Corpuscular Hemoglobin Concent 34.2 G/DL (32.0-36.0) Red Cell Distribution Width 11.4 % (11.6-14.8) L Platelet Count 334 K/UL (150-450) Mean Platelet Volume 7.9 FL (6.5-10.1) Neutrophils (%) (Auto) % (45.0-75.0) Lymphocytes (%) (Auto) % (20.0-45.0) Monocytes (%) (Auto) % (1.0-10.0) Eosinophils (%) (Auto) % (0.0-3.0) Basophils (%) (Auto) % (0.0-2.0) Differential Total Cells Counted 100 Neutrophils % (Manual) 81 % (45-75) H Lymphocytes % (Manual) 5 % (20-45) L Monocytes % (Manual) 9 % (1-10) Eosinophils % (Manual) 3 % (0-3) Basophils % (Manual) 0 % (0-2) Band Neutrophils 2 % (0-8) Platelet Estimate Adequate Platelet Morphology Normal Hypochromasia 1+ Prothrombin Time 12.0 SEC (9.30-11.50) H Prothromb Time International Ratio 1.2 (0.9-1.1) H Activated Partial Thromboplast Time 31 SEC (23-33) Sodium Level 134 mEQ/L (135-145) L Potassium Level 3.5 mEQ/L (3.4-4.9) Chloride Level 93 mEQ/L (98-107) L Carbon Dioxide Level 23 mEQ/L (20-30) Anion Gap 18 (5-15) H Blood Urea Nitrogen 32 mg/dL (7-23) H Creatinine 6.3 mg/dL (0.7-1.2) #H Estimat Glomerular Filtration Rate 10.1 mL/min (>60) Glucose Level 112 mg/dL (74-106) H Calcium Level 8.0 mg/dL (8.6-10.2) L Pro-B-Type Natriuretic Peptide 1142 pg/mL (0-125) H Thyroid Stimulating Hormone (TSH) 0.024 uIU/mL (0.300-4.500) Free Thyroxine 1.40 ng/dL (0.86-1.85) Microbiology Date/Time Source Procedure Growth Status 06/19/16 14:20 Blood Blood Culture - Preliminary NO GROWTH AFTER 24 HOURS Resulted 06/19/16 14:10 Blood Blood Culture - Preliminary NO GROWTH AFTER 24 HOURS Resulted 06/19/16 15:00 Nasal Nares MRSA Culture - Final NO METHICILLIN RESISTANT STAPH AUREUS... Complete 06/19/16 14:10 Sputum Expectorated Gram Stain - Final Complete 06/19/16 14:10 Sputum Expectorated Sputum Culture - Final NORMAL UPPER RESPIRATORY SONNY PRESENT Complete 06/19/16 13:03 Nose Influenza Types A,B Antigen (KASSY) - Final Complete 06/19/16 15:00 Rectum VRE Culture - Final NO VANCOMYCIN RESISTANT ENTEROCOCCUS ... Complete Objective 1. Tachycardia. Sinus tachycardia is likely due to patient's frequent, bilateral pulmonary process, abdominal pain. No atrial fibrillation or SVT. 2. History of hypertension, blood pressure currently is stable range between 190 to 138 systolic, is off any antihypertensives. 3. History of histoplasmosis. 4. Shortness of breath due to healthcare-associated pneumonia. The patient was evaluated by ID and was started empiric Zyvox. 5. Adverse reaction to antibiotics, unclear whether it was due to vancomycin versus Zosyn but could be due to red man syndrome after rapid injection of vancomycin per Dr. Navarrete. 6. Acute renal failyure. Started on HD today. HEIDI IBRAHIM and JOHN Butler Jun 21, 2016 16:07
--- NOTE | 2016-06-21 16:15 | Pulmonology Progress Note ---
Assessment/Plan Problems: (1) Lung abscess (2) Pneumonia (3) HTN (hypertension) (4) Adverse reaction to antibiotic (5) Pleurisy (6) HCAP (healthcare-associated pneumonia) Assessment/Plan US of chest didn't show any pleural effusion receiving HD check electrolytes continue antibiotics Subjective Interval Events: pt transferred to ICU for worsening electrolytes. Allergies: Coded Allergies: PIPERACILLIN (Verified Adverse Reaction, Intermediate, 06/20/16) pt developed diffuse macular rash per ER MD notes. unclear if due to vanco or zosyn TAZOBACTAM (Verified Adverse Reaction, Intermediate, 06/20/16) pt developed diffuse macular rash per ER MD notes. unclear if due to vanco or zosyn VANCOMYCIN (Verified Adverse Reaction, Intermediate, 06/20/16) pt developed diffuse macular rash per ER MD notes. unclear if due to vanco or zosyn Objective Last 24 Hour Vital Signs Date Time Temp Pulse Resp B/P Pulse Ox O2 Delivery O2 Flow Rate FiO2 06/21/16 15:00 98 22 142/78 95 Room Air 06/21/16 14:00 92 18 138/82 96 Room Air 06/21/16 13:00 90 18 141/79 95 Room Air 06/21/16 12:00 98.1 94 22 128/82 94 Room Air 06/21/16 11:40 94 25 5.0 06/21/16 11:38 94 25 5.0 06/21/16 11:32 94 25 5.0 06/21/16 11:30 25 125/82 90 Room Air 06/21/16 11:26 94 26 5.0 06/21/16 11:20 26 127/81 93 Room Air 06/21/16 11:15 20 135/87 97 Room Air 06/21/16 11:14 94 28 5.0 06/21/16 11:07 97.0 06/21/16 11:05 94 28 5.0 06/21/16 11:00 94 28 126/87 95 Room Air 06/21/16 10:55 96 06/21/16 10:45 96 23 134/86 95 Room Air 06/21/16 08:32 97.2 94 20 114/70 98 Venturi Mask 5.0 94 06/21/16 07:25 Room Air 21 06/21/16 07:25 95 Room Air 21 06/21/16 04:00 98.0 74 20 130/72 96 Room Air 06/21/16 01:30 98.2 98 20 134/83 Venturi Mask 06/21/16 00:00 98.2 98 24 134/83 99 Venturi Mask 06/20/16 21:15 98.4 105 20 138/90 96 Venturi Mask 6.0 06/20/16 21:09 98.4 105 20 138/90 96 Venturi Mask 06/20/16 20:00 98.4 105 20 138/90 96 Venturi Mask 6.0 06/20/16 19:49 110 06/20/16 19:30 94 Venturi Mask 8.0 40 06/20/16 19:30 Venturi Mask 8.0 40 06/20/16 18:00 98.0 105 20 132/78 Venturi Mask 6.0 Intake and Output 06/20/16 06/21/16 19:00 07:00 Intake Total 1290 ml 410 ml Balance 1290 ml 410 ml Intake Oral 480 ml 60 ml IV Total 810 ml 350 ml # Voids 2 # Bowel Movements 1 General Appearance: WD/WN HEENT: normocephalic Respiratory/Chest: chest wall non-tender, normal breath sounds Cardiovascular: normal peripheral pulses, normal rate Abdomen: normal bowel sounds, soft, non tender Microbiology Date/Time Source Procedure Growth Status 06/19/16 14:20 Blood Blood Culture - Preliminary NO GROWTH AFTER 24 HOURS Resulted 06/19/16 14:10 Blood Blood Culture - Preliminary NO GROWTH AFTER 24 HOURS Resulted 06/19/16 15:00 Nasal Nares MRSA Culture - Final NO METHICILLIN RESISTANT STAPH AUREUS... Complete 06/19/16 14:10 Sputum Expectorated Gram Stain - Final Complete 06/19/16 14:10 Sputum Expectorated Sputum Culture - Final NORMAL UPPER RESPIRATORY SONNY PRESENT Complete 06/19/16 13:03 Nose Influenza Types A,B Antigen (KASSY) - Final Complete 06/19/16 15:00 Rectum VRE Culture - Final NO VANCOMYCIN RESISTANT ENTEROCOCCUS ... Complete Laboratory Tests 06/21/16 05:50: White Blood Count 14.9H, Red Blood Count 3.95L, Hemoglobin 11.6L, Hematocrit 34.0L, Mean Corpuscular Volume 86, Mean Corpuscular Hemoglobin 29.4, Mean Corpuscular Hemoglobin Concent 34.2, Red Cell Distribution Width 11.4L, Platelet Count 334, Mean Platelet Volume 7.9, Neutrophils (%) (Auto) , Lymphocytes (%) (Auto) , Monocytes (%) (Auto) , Eosinophils (%) (Auto) , Basophils (%) (Auto) , Differential Total Cells Counted 100, Neutrophils % ( Manual) 81H, Lymphocytes % (Manual) 5L, Monocytes % (Manual) 9, Eosinophils % ( Manual) 3, Basophils % (Manual) 0, Band Neutrophils 2, Platelet Estimate Adequate, Platelet Morphology Normal, Hypochromasia 1+, Prothrombin Time 12.0H, Prothromb Time International Ratio 1.2H, Activated Partial Thromboplast Time 31 , Sodium Level 134L, Potassium Level 3.5, Chloride Level 93L, Carbon Dioxide Level 23, Anion Gap 18H, Blood Urea Nitrogen 32H, Creatinine 6.3#H, Estimat Glomerular Filtration Rate 10.1, Glucose Level 112H, Calcium Level 8.0L, Pro-B- Type Natriuretic Peptide 1142H, Thyroid Stimulating Hormone (TSH) 0.024L, Free Thyroxine 1.40 Current Medications Medications (Trade) Dose Ordered Sig/Keila Route PRN Reason Start Time Stop Time Status Last Admin Dose Admin Acetaminophen (Tylenol) 650 mg Q4H PRN ORAL fever 06/21/16 13:00 07/21/16 12:59 Albuterol/ Ipratropium (DuoNeb 0.5-3(2.5)mg/3ml) 3 ml Q4H PRN HHN Shortness of Breath 06/21/16 13:00 06/26/16 12:59 Cefepime HCl 1 gm/ Dextrose 55 ml @ 110 mls/hr Q24H IV 06/21/16 21:00 06/28/16 20:59 Heparin Sodium (Porcine) (Heparin 5000 units/ml) 5,000 units EVERY 12 HOURS SUBQ 06/21/16 21:00 07/21/16 20:59 Itraconazole (Sporanox) 200 mg Q12HR ORAL 06/21/16 21:00 06/28/16 20:59 Linezolid 300 ml @ 300 mls/hr Q12HR IVPB 06/21/16 21:00 06/28/16 20:59 Metronidazole (Flagyl) 100 ml @ 100 mls/hr Q8HR IVPB 06/21/16 14:00 06/28/16 13:59 06/21/16 13:44 Nitroglycerin (Ntg) 0.4 mg Q5MIN X3 PRN SL Prn Chest Pain 06/21/16 12:45 07/21/16 12:44 Ondansetron HCl (Zofran) 4 mg Q6H PRN IVP Nausea & Vomiting 06/21/16 13:00 07/21/16 12:59 Pantoprazole (Protonix) 40 mg DAILY IVP 06/21/16 14:00 07/21/16 13:59 06/21/16 13:44 Polyethylene Glycol (Miralax) 17 gm DAILYPRN PRN ORAL Constipation 06/21/16 13:00 07/21/16 12:59 Promethazine HCl/ Codeine (Phenergan with Codeine) 5 ml Q4H PRN ORAL For Cough 06/21/16 13:00 07/21/16 12:59 Temazepam (Restoril) 15 mg HSPRN PRN ORAL Insomnia 06/21/16 21:00 06/28/16 20:59 SAGAR CHRIS Jun 21, 2016 16:15
--- NOTE | 2016-06-21 16:21 | Diagnostic Imaging Report ---
Indication:Elevated Bun and Creatinine. Technique: Grayscale and duplex Doppler imaging of the kidneys performed. Comparison: None Findings: The size, contour, and echogenicity of both kidneys are within normal limits. Both kidneys measure about 14 cm in length. There is no hydronephrosis. Hameed catheter noted. The IVC and urinary bladder are unremarkable. The liver is echogenic. Impression: Negative examination of the kidneys. Hameed catheter Fatty liver
[2016-06-21] MEDS: DuoNeb 0.5-3(2.5)mg/3ml neb HHN PRN ×3 (16:27→23:17)
--- NOTE | 2016-06-21 17:04 | Infectious Diseases Prog Note ---
Assessment/Plan Problems: (1) Lung abscess Assessment & Plan: will send sputum for culture, continue zyvox, cefepime and add flagyl for anaerobic coverage, pulmonary is following (2) HCAP (healthcare-associated pneumonia) Assessment & Plan: improving, continue zyvox , and cefepime empirically , await sputum and blood culture, had allergic reaction to either vancomycin or zosyn, most likely vancomycin with red man syndrome, will avoid for now. (3) Vomiting Assessment & Plan: due to pneumonia, improving, continue supportive care , monitor labs, continue hydration (4) Adverse reaction to antibiotic Assessment & Plan: unclear whether due to vancomycin VS zosyn , most likely vancomycin since it happened fast after infusion, suspect red man syndrome, will check blood eosinophils counts in blood. avoid both classes of antibiotics for now, ok to use cephalosporins since he received it last admission with no reaction (5) Histoplasmosis pneumonia Assessment & Plan: continue itraconazole, monitor LFT (6) LISET (acute kidney injury) Assessment & Plan: had HD cath placed by renal, may need HD, avoid nephrotoxic meds. Subjective Constitutional: Reports: anorexia, fatigue HEENT: Reports: no symptoms Respiratory: Reports: productive cough, shortness of breath Breasts: Reports: no symptoms Cardiovascular: Reports: no symptoms Gastrointestinal/Abdominal: Reports: no symptoms Genitourinary: Reports: no symptoms Neurologic: Reports: no symptoms Psychiatric: Reports: no symptoms Skin: Reports: no symptoms Endocrine: Reports: no symptoms Musculoskeletal: Reports: no symptoms Allergies: Coded Allergies: PIPERACILLIN (Verified Adverse Reaction, Intermediate, 06/20/16) pt developed diffuse macular rash per ER MD notes. unclear if due to vanco or zosyn TAZOBACTAM (Verified Adverse Reaction, Intermediate, 06/20/16) pt developed diffuse macular rash per ER MD notes. unclear if due to vanco or zosyn VANCOMYCIN (Verified Adverse Reaction, Intermediate, 06/20/16) pt developed diffuse macular rash per ER MD notes. unclear if due to vanco or zosyn Subjective he feels better today, still have productive cough with yellowish phlegm, less fever, no chills, no vomiting. no skin rash or hives, tolerated current antibiotics well. Objective Vital Signs Last 24 Hour Vital Signs Date Time Temp Pulse Resp B/P Pulse Ox O2 Delivery O2 Flow Rate FiO2 06/21/16 16:00 100.2 95 20 155/65 94 Room Air 06/21/16 15:00 98 22 142/78 95 Room Air 06/21/16 14:45 Room Air 06/21/16 14:00 92 18 138/82 96 Room Air 06/21/16 13:00 90 18 141/79 95 Room Air 06/21/16 12:00 98.1 94 22 128/82 94 Room Air 06/21/16 11:40 94 25 5.0 06/21/16 11:38 94 25 5.0 06/21/16 11:32 94 25 5.0 06/21/16 11:30 25 125/82 90 Room Air 06/21/16 11:26 94 26 5.0 06/21/16 11:20 26 127/81 93 Room Air 06/21/16 11:15 20 135/87 97 Room Air 06/21/16 11:14 94 28 5.0 06/21/16 11:07 97.0 06/21/16 11:05 94 28 5.0 06/21/16 11:00 94 28 126/87 95 Room Air 06/21/16 10:55 96 06/21/16 10:45 96 23 134/86 95 Room Air 06/21/16 08:32 97.2 94 20 114/70 98 Venturi Mask 5.0 94 06/21/16 07:25 Room Air 21 06/21/16 07:25 95 Room Air 21 06/21/16 04:00 98.0 74 20 130/72 96 Room Air 06/21/16 01:30 98.2 98 20 134/83 Venturi Mask 06/21/16 00:00 98.2 98 24 134/83 99 Venturi Mask 06/20/16 21:15 98.4 105 20 138/90 96 Venturi Mask 6.0 06/20/16 21:09 98.4 105 20 138/90 96 Venturi Mask 06/20/16 20:00 98.4 105 20 138/90 96 Venturi Mask 6.0 06/20/16 19:49 110 06/20/16 19:30 94 Venturi Mask 8.0 40 06/20/16 19:30 Venturi Mask 8.0 40 06/20/16 18:00 98.0 105 20 132/78 Venturi Mask 6.0 Height (Feet): 5 Height (Inches): 5.00 Weight (Pounds): 170 General Appearance: WD/WN, no acute distress HEENT: normocephalic, atraumatic, anicteric, mucous membranes moist Respiratory/Chest: chest wall non-tender, no respiratory distress, no accessory muscle use, decreased breath sounds, crackles/rales Cardiovascular: normal peripheral pulses, normal rate, regular rhythm, no gallop/murmur Abdomen: normal bowel sounds, soft, non tender, no organomegaly, non distended , no mass Extremities: no cyanosis, no clubbing Skin: no rash, no lesions, no ulcers Microbiology Date/Time Source Procedure Growth Status 06/19/16 14:20 Blood Blood Culture - Preliminary NO GROWTH AFTER 24 HOURS Resulted 06/19/16 14:10 Blood Blood Culture - Preliminary NO GROWTH AFTER 24 HOURS Resulted 06/19/16 15:00 Nasal Nares MRSA Culture - Final NO METHICILLIN RESISTANT STAPH AUREUS... Complete 06/19/16 14:10 Sputum Expectorated Gram Stain - Final Complete 06/19/16 14:10 Sputum Expectorated Sputum Culture - Final NORMAL UPPER RESPIRATORY SONNY PRESENT Complete 06/19/16 13:03 Nose Influenza Types A,B Antigen (KASSY) - Final Complete 06/19/16 15:00 Rectum VRE Culture - Final NO VANCOMYCIN RESISTANT ENTEROCOCCUS ... Complete Laboratory Tests Test 06/21/16 05:50 White Blood Count 14.9 K/UL (4.8-10.8) H Red Blood Count 3.95 M/UL (4.70-6.10) L Hemoglobin 11.6 G/DL (14.2-18.0) L Hematocrit 34.0 % (42.0-52.0) L Mean Corpuscular Volume 86 FL (80-99) Mean Corpuscular Hemoglobin 29.4 PG (27.0-31.0) Mean Corpuscular Hemoglobin Concent 34.2 G/DL (32.0-36.0) Red Cell Distribution Width 11.4 % (11.6-14.8) L Platelet Count 334 K/UL (150-450) Mean Platelet Volume 7.9 FL (6.5-10.1) Neutrophils (%) (Auto) % (45.0-75.0) Lymphocytes (%) (Auto) % (20.0-45.0) Monocytes (%) (Auto) % (1.0-10.0) Eosinophils (%) (Auto) % (0.0-3.0) Basophils (%) (Auto) % (0.0-2.0) Differential Total Cells Counted 100 Neutrophils % (Manual) 81 % (45-75) H Lymphocytes % (Manual) 5 % (20-45) L Monocytes % (Manual) 9 % (1-10) Eosinophils % (Manual) 3 % (0-3) Basophils % (Manual) 0 % (0-2) Band Neutrophils 2 % (0-8) Platelet Estimate Adequate Platelet Morphology Normal Hypochromasia 1+ Prothrombin Time 12.0 SEC (9.30-11.50) H Prothromb Time International Ratio 1.2 (0.9-1.1) H Activated Partial Thromboplast Time 31 SEC (23-33) Sodium Level 134 mEQ/L (135-145) L Potassium Level 3.5 mEQ/L (3.4-4.9) Chloride Level 93 mEQ/L (98-107) L Carbon Dioxide Level 23 mEQ/L (20-30) Anion Gap 18 (5-15) H Blood Urea Nitrogen 32 mg/dL (7-23) H Creatinine 6.3 mg/dL (0.7-1.2) #H Estimat Glomerular Filtration Rate 10.1 mL/min (>60) Glucose Level 112 mg/dL (74-106) H Calcium Level 8.0 mg/dL (8.6-10.2) L Pro-B-Type Natriuretic Peptide 1142 pg/mL (0-125) H Thyroid Stimulating Hormone (TSH) 0.024 uIU/mL (0.300-4.500) Free Thyroxine 1.40 ng/dL (0.86-1.85) Current Medications Medications (Trade) Dose Ordered Sig/Keila Route PRN Reason Start Time Stop Time Status Last Admin Dose Admin Acetaminophen (Tylenol) 650 mg Q4H PRN ORAL fever 06/21/16 13:00 07/21/16 12:59 Albuterol/ Ipratropium (DuoNeb 0.5-3(2.5)mg/3ml) 3 ml Q4H PRN HHN Shortness of Breath 06/21/16 13:00 06/26/16 12:59 06/21/16 16:27 Cefepime HCl 1 gm/ Dextrose 55 ml @ 110 mls/hr Q24H IV 06/21/16 21:00 06/28/16 20:59 Heparin Sodium (Porcine) (Heparin 5000 units/ml) 5,000 units EVERY 12 HOURS SUBQ 06/21/16 21:00 07/21/16 20:59 Itraconazole (Sporanox) 200 mg Q12HR ORAL 06/21/16 21:00 06/28/16 20:59 Linezolid 300 ml @ 300 mls/hr Q12HR IVPB 06/21/16 21:00 06/28/16 20:59 Metronidazole (Flagyl) 100 ml @ 100 mls/hr Q8HR IVPB 06/21/16 14:00 06/28/16 13:59 06/21/16 13:44 Nitroglycerin (Ntg) 0.4 mg Q5MIN X3 PRN SL Prn Chest Pain 06/21/16 12:45 07/21/16 12:44 Ondansetron HCl (Zofran) 4 mg Q6H PRN IVP Nausea & Vomiting 06/21/16 13:00 07/21/16 12:59 Pantoprazole (Protonix) 40 mg DAILY IVP 06/21/16 14:00 07/21/16 13:59 06/21/16 13:44 Polyethylene Glycol (Miralax) 17 gm DAILYPRN PRN ORAL Constipation 06/21/16 13:00 07/21/16 12:59 Promethazine HCl/ Codeine (Phenergan with Codeine) 5 ml Q4H PRN ORAL For Cough 06/21/16 13:00 07/21/16 12:59 Temazepam (Restoril) 15 mg HSPRN PRN ORAL Insomnia 06/21/16 21:00 06/28/16 20:59 Erin Navarrete M.D. Jun 21, 2016 17:04
[2016-06-21] MEDS: Heparin 5000 units/ml inj SUBQ SCH (20:21)
[2016-06-21] MEDS ORDERED: Cefepime HCl 1 GM in D5W 55 ML IV SCH ×4 (21:00)
[2016-06-22] VITALS (17 sets, daily range): BP systolic 113–152; BP diastolic 60–88
--- NOTE | 2016-06-22 00:09 | General Progress Note ---
Assessment/Plan Assessment/Plan ASSESSMENT: 1. Anemia secondary to chronic disease. 2. Decreased hemoglobin and hematocrit, rule out gastrointestinal bleed. 3. Leukocytosis due to underlying infection with pneumonia and/or histoplasmosis. 4. Nausea and vomiting potentially secondary to severe dehydration. 5. Community-acquired pneumonia on chest x-ray, is on linezolid and cefepime. 6. Histoplasmosis pneumonia. The patient to repeat CAT scan. 7. Eosinophilia history that is resolved. 8. Acute kidney injury. RECOMMENDATIONS: 1. Monitor counts and maintain hemoglobin >7. 2. Antibiotics per ID service. 3. Anemia w/u reviewed 4. CAT scan of the chest. 5. Labs reviewed 6. Repeat smear reviewed 7. Review viral studies 8. DVT prophylaxis with heparin sq 9. GI prophylaxis as needed. 10. Discussed with staff. Thank you, Gerry Winston MD Subjective Date patient seen: Jun 21, 2016 Constitutional: Reports: no symptoms HEENT: Reports: no symptoms Cardiovascular: Reports: no symptoms Respiratory: Reports: no symptoms Gastrointestinal/Abdominal: Reports: poor appetite Genitourinary: Reports: no symptoms Neurologic/Psychiatric: Reports: no symptoms Endocrine: Reports: no symptoms Hematologic/Lymphatic: Reports: anemia Allergies: Coded Allergies: PIPERACILLIN (Verified Adverse Reaction, Intermediate, 06/20/16) pt developed diffuse macular rash per ER MD notes. unclear if due to vanco or zosyn TAZOBACTAM (Verified Adverse Reaction, Intermediate, 06/20/16) pt developed diffuse macular rash per ER MD notes. unclear if due to vanco or zosyn VANCOMYCIN (Verified Adverse Reaction, Intermediate, 06/20/16) pt developed diffuse macular rash per ER MD notes. unclear if due to vanco or zosyn Subjective stable, getting HD Objective Last 24 Hour Vital Signs Date Time Temp Pulse Resp B/P Pulse Ox O2 Delivery O2 Flow Rate FiO2 06/21/16 23:24 113 18 99 Nasal Cannula 5.0 44 06/21/16 23:18 104 18 97 Nasal Cannula 5.0 44 06/21/16 23:00 103 18 162/89 97 Nasal Cannula 2.0 06/21/16 22:00 109 18 143/90 98 Nasal Cannula 2.0 06/21/16 21:00 117 19 149/82 97 Nasal Cannula 2.0 06/21/16 20:00 112 20 154/82 97 Nasal Cannula 2.0 06/21/16 19:36 112 18 98 Nasal Cannula 5.0 44 06/21/16 19:29 98 Nasal Cannula 5.0 44 06/21/16 19:29 Nasal Cannula 5.0 44 06/21/16 19:26 118 14 94 Nasal Cannula 5.0 44 06/21/16 19:00 108 20 149/93 96 Nasal Cannula 2.0 06/21/16 18:41 97.8 93 23 143/75 Room Air 06/21/16 18:38 Room Air 06/21/16 18:04 95 20 147/87 96 Nasal Cannula 2.0 06/21/16 17:00 99 18 145/75 96 Nasal Cannula 2.0 06/21/16 16:00 98.5 95 20 155/65 94 Room Air 06/21/16 15:00 98 22 142/78 95 Room Air 06/21/16 14:45 Room Air 06/21/16 14:00 92 18 138/82 96 Room Air 06/21/16 13:00 90 18 141/79 95 Room Air 06/21/16 12:00 98.1 94 22 128/82 94 Room Air 06/21/16 11:40 94 25 5.0 06/21/16 11:38 94 25 5.0 06/21/16 11:32 94 25 5.0 06/21/16 11:30 25 125/82 90 Room Air 06/21/16 11:26 94 26 5.0 06/21/16 11:20 26 127/81 93 Room Air 06/21/16 11:15 20 135/87 97 Room Air 06/21/16 11:14 94 28 5.0 06/21/16 11:07 97.0 06/21/16 11:05 94 28 5.0 06/21/16 11:00 94 28 126/87 95 Room Air 06/21/16 10:55 96 06/21/16 10:45 96 23 134/86 95 Room Air 06/21/16 08:32 97.2 94 20 114/70 98 Venturi Mask 5.0 94 06/21/16 07:25 Room Air 21 06/21/16 07:25 95 Room Air 21 06/21/16 04:00 98.0 74 20 130/72 96 Room Air 06/21/16 01:30 98.2 98 20 134/83 Venturi Mask Intake and Output 06/21/16 06/22/16 19:00 07:00 Intake Total 100 ml 455 ml Output Total 1660 ml 90 ml Balance -1560 ml 365 ml IV Total 100 ml 455 ml Output Urine Total 160 ml 90 ml Hemodialysis UF 1500 ml Laboratory Tests 06/21/16 05:50: White Blood Count 14.9H, Red Blood Count 3.95L, Hemoglobin 11.6L, Hematocrit 34.0L, Mean Corpuscular Volume 86, Mean Corpuscular Hemoglobin 29.4, Mean Corpuscular Hemoglobin Concent 34.2, Red Cell Distribution Width 11.4L, Platelet Count 334, Mean Platelet Volume 7.9, Neutrophils (%) (Auto) , Lymphocytes (%) (Auto) , Monocytes (%) (Auto) , Eosinophils (%) (Auto) , Basophils (%) (Auto) , Differential Total Cells Counted 100, Neutrophils % ( Manual) 81H, Lymphocytes % (Manual) 5L, Monocytes % (Manual) 9, Eosinophils % ( Manual) 3, Basophils % (Manual) 0, Band Neutrophils 2, Platelet Estimate Adequate, Platelet Morphology Normal, Hypochromasia 1+, Prothrombin Time 12.0H, Prothromb Time International Ratio 1.2H, Activated Partial Thromboplast Time 31 , Sodium Level 134L, Potassium Level 3.5, Chloride Level 93L, Carbon Dioxide Level 23, Anion Gap 18H, Blood Urea Nitrogen 32H, Creatinine 6.3#H, Estimat Glomerular Filtration Rate 10.1, Glucose Level 112H, Calcium Level 8.0L, Pro-B- Type Natriuretic Peptide 1142H, Thyroid Stimulating Hormone (TSH) 0.024L, Free Thyroxine 1.40 06/21/16 17:00: Urine Random Sodium 69 Height (Feet): 5 Height (Inches): 5.00 Weight (Pounds): 170 General Appearance: no apparent distress EENT: TMs normal Cardiovascular: normal rate Respiratory/Chest: no respiratory distress Abdomen: soft Extremities: non-tender Edema: 1+ Leg (L), 1+ Leg (R) Neurologic: alert Skin: warm/dry Gerry Winston Jun 22, 2016 00:09
[2016-06-22] MEDS: DuoNeb 0.5-3(2.5)mg/3ml neb HHN PRN ×4 (06:02→21:22)
[2016-06-22] MEDS: metroNIDAZOLE 500mg 100 ML IVPB SCH (06:09)
[2016-06-22] MEDS: Promethazine/Codeine 5ml UD ORAL PRN ×4 (06:15→21:14)
[2016-06-22] MEDS: Pantoprazole Inj IVP SCH (08:42)
[2016-06-22] MEDS: Heparin 5000 units/ml inj SUBQ SCH ×2 (08:44→21:48)
[2016-06-22 09:28] LABS: MEAN CORPUSCULAR HEMOGLOBIN 29.2 PG (27.0-31.0); MEAN CORPUSCULAR HGB CONC 33.9 G/DL (32.0-36.0); MEAN CORPUSCULAR VOLUME 86 FL (80-99); MEAN PLATELET VOLUME 8.3 FL (6.5-10.1); PLATELET COUNT 367 K/UL (150-450); RED BLOOD COUNT 3.97 M/UL (4.70-6.10); RED CELL DISTRIBUTION WIDTH 11.3 % (11.6-14.8); WHITE BLOOD COUNT 12.8 K/UL (4.8-10.8)
[2016-06-22 09:45] LABS: ALBUMIN/GLOBULIN RATIO 0.6 (1.0-2.7); CALCIUM 8.2 mg/dL (8.6-10.2); CREATININE 6.3 mg/dL (0.7-1.2); GLOMERULAR FILTRATION RATE 10.1 mL/min (>60); POTASSIUM 3.1 mEQ/L (3.4-4.9); TOTAL PROTEIN 6.6 g/dL (6.6-8.7)
[2016-06-22 10:14] LABS: BAND NEUTROPHILS % (MANUAL) 0 % (0-8); BASOPHILS % (MANUAL) 0 % (0-2); EOSINOPHILS % (MANUAL) 0 % (0-3); LYMPHOCYTES % (MANUAL) 5 % (20-45); NEUTROPHILS % (MANUAL) 87 % (45-75); PLATELET ESTIMATE ADEQUATE; PLATELET MORPHOLOGY NORMAL; TOTAL CELLS COUNTED 100
[2016-06-22] MEDS ORDERED: Solu-MEDROL 125mg Inj IV SCH (11:00)
--- NOTE | 2016-06-22 11:43 | General Progress Note ---
Assessment/Plan Problem List: (1) Histoplasmosis pneumonia ICD Codes: B39.2 - Pulmonary histoplasmosis capsulati, unspecified SNOMED: 393355112 (2) Vomiting ICD Codes: R11.10 - Vomiting, unspecified SNOMED: 636992791 (3) Adverse reaction to antibiotic ICD Codes: T36.95XA - Adverse effect of unspecified systemic antibiotic, initial encounter SNOMED: 763171620, 553980503 Qualifiers: Qualified Codes: T36.95XA - Adverse effect of unspecified systemic antibiotic, initial encounter (4) Cavitary lung disease ICD Codes: J98.4 - Other disorders of lung SNOMED: 01188162 (5) Pneumonia ICD Codes: J18.9 - Pneumonia, unspecified organism SNOMED: 221261932 (6) HTN (hypertension) ICD Codes: I10 - Essential (primary) hypertension SNOMED: 84352650 Qualifiers: Qualified Codes: I10 - Essential (primary) hypertension (7) Hyperlipidemia, mixed ICD Codes: E78.2 - Mixed hyperlipidemia SNOMED: 636102879 (8) Pleurisy ICD Codes: R09.1 - Pleurisy SNOMED: 836433919 Status: progressing Assessment/Plan pna arf resp failure septic cr is getting worse in icu reaction to meds ? Subjective ROS Limited/Unobtainable: Yes Allergies: Coded Allergies: PIPERACILLIN (Verified Adverse Reaction, Intermediate, 06/20/16) pt developed diffuse macular rash per ER MD notes. unclear if due to vanco or zosyn TAZOBACTAM (Verified Adverse Reaction, Intermediate, 06/20/16) pt developed diffuse macular rash per ER MD notes. unclear if due to vanco or zosyn VANCOMYCIN (Verified Adverse Reaction, Intermediate, 06/20/16) pt developed diffuse macular rash per ER MD notes. unclear if due to vanco or zosyn Objective Last 24 Hour Vital Signs Date Time Temp Pulse Resp B/P Pulse Ox O2 Delivery O2 Flow Rate FiO2 06/22/16 11:00 94 17 152/87 97 Nasal Cannula 4.0 06/22/16 10:00 92 22 148/84 94 Nasal Cannula 4.0 06/22/16 09:00 87 23 139/83 96 Nasal Cannula 4.0 06/22/16 08:25 90 06/22/16 08:00 98.4 100 22 135/77 98 Nasal Cannula 4.0 06/22/16 07:22 Nasal Cannula 5.0 44 06/22/16 07:22 94 Nasal Cannula 5.0 44 06/22/16 07:00 91 23 139/78 95 Nasal Cannula 4.0 06/22/16 06:12 95 20 99 Nasal Cannula 5.0 44 06/22/16 06:03 96 19 97 Nasal Cannula 5.0 44 06/22/16 06:00 93 25 149/88 93 Nasal Cannula 4.0 06/22/16 05:00 80 25 135/79 91 Nasal Cannula 4.0 06/22/16 04:00 93 06/22/16 04:00 98.9 87 23 128/73 95 Nasal Cannula 4.0 06/22/16 03:00 93 25 128/73 96 Nasal Cannula 4.0 06/22/16 02:00 89 20 147/78 98 Nasal Cannula 4.0 06/22/16 01:00 99 18 113/62 94 Nasal Cannula 4.0 06/22/16 00:00 98.3 110 20 135/77 95 Nasal Cannula 2.0 06/22/16 00:00 105 06/21/16 23:24 113 18 99 Nasal Cannula 5.0 44 06/21/16 23:18 104 18 97 Nasal Cannula 5.0 44 06/21/16 23:00 103 18 162/89 97 Nasal Cannula 2.0 06/21/16 22:00 109 18 143/90 98 Nasal Cannula 2.0 06/21/16 21:00 117 19 149/82 97 Nasal Cannula 2.0 06/21/16 20:00 112 20 154/82 97 Nasal Cannula 2.0 06/21/16 19:36 112 18 98 Nasal Cannula 5.0 44 06/21/16 19:29 98 Nasal Cannula 5.0 44 06/21/16 19:29 Nasal Cannula 5.0 44 06/21/16 19:26 118 14 94 Nasal Cannula 5.0 44 06/21/16 19:00 108 20 149/93 96 Nasal Cannula 2.0 06/21/16 18:41 97.8 93 23 143/75 Room Air 06/21/16 18:38 Room Air 06/21/16 18:04 95 20 147/87 96 Nasal Cannula 2.0 06/21/16 17:00 99 18 145/75 96 Nasal Cannula 2.0 06/21/16 16:00 98.5 95 20 155/65 94 Room Air 06/21/16 15:00 98 22 142/78 95 Room Air 06/21/16 14:45 Room Air 06/21/16 14:00 92 18 138/82 96 Room Air 06/21/16 13:00 90 18 141/79 95 Room Air 06/21/16 12:00 98.1 94 22 128/82 94 Room Air Intake and Output 06/21/16 06/22/16 19:00 07:00 Intake Total 100 ml 455 ml Output Total 1660 ml 280 ml Balance -1560 ml 175 ml IV Total 100 ml 455 ml Output Urine Total 160 ml 280 ml Hemodialysis UF 1500 ml Laboratory Tests 06/21/16 17:00: Urine Random Sodium 69 06/22/16 04:00: Urine Eosinophils Occasional 06/22/16 08:35: White Blood Count 12.8H, Red Blood Count 3.97L, Hemoglobin 11.6L, Hematocrit 34.1L, Mean Corpuscular Volume 86, Mean Corpuscular Hemoglobin 29.2, Mean Corpuscular Hemoglobin Concent 33.9, Red Cell Distribution Width 11.3L, Platelet Count 367, Mean Platelet Volume 8.3, Neutrophils (%) (Auto) , Lymphocytes (%) (Auto) , Monocytes (%) (Auto) , Eosinophils (%) (Auto) , Basophils (%) (Auto) , Differential Total Cells Counted 100, Neutrophils % ( Manual) 87H, Lymphocytes % (Manual) 5L, Monocytes % (Manual) 8, Eosinophils % ( Manual) 0, Basophils % (Manual) 0, Band Neutrophils 0, Platelet Estimate Adequate, Platelet Morphology Normal, Red Blood Cell Morphology Normal, Sodium Level 139, Potassium Level 3.1L, Chloride Level 92L, Carbon Dioxide Level 29, Anion Gap 18H, Blood Urea Nitrogen 26H, Creatinine 6.3H, Estimat Glomerular Filtration Rate 10.1, Glucose Level 122H, Calcium Level 8.2L, Total Bilirubin 0.4, Aspartate Amino Transf (AST/SGOT) 17, Alanine Aminotransferase (ALT/SGPT) 13, Alkaline Phosphatase 56, Total Protein 6.6, Albumin 2.7L, Globulin 3.9, Albumin/Globulin Ratio 0.6L Height (Feet): 5 Height (Inches): 5.00 Weight (Pounds): 170 General Appearance: confused Neck: supple Cardiovascular: normal rate Respiratory/Chest: lungs clear Jesse Dean MD Jun 22, 2016 11:43
--- NOTE | 2016-06-22 12:53 | General Progress Note ---
Assessment/Plan Status: unchanged Assessment/Plan Status: Acute renal failure ( Allergic vs Sepsis) Urine positive for Eosinophils leading to Allergic etiology Other: 1) Lung abscess (2) Pneumonia (3) HTN (hypertension) (4) Adverse reaction to antibiotic (5) Pleurisy (6) HCAP (healthcare-associated pneumonia) Plan: HD 06/21 , will repeat today- Solumedrol daily - monitor renal parameters- Subjective ROS Limited/Unobtainable: No Constitutional: Reports: malaise, weakness Allergies: Coded Allergies: PIPERACILLIN (Verified Adverse Reaction, Intermediate, 06/20/16) pt developed diffuse macular rash per ER MD notes. unclear if due to vanco or zosyn TAZOBACTAM (Verified Adverse Reaction, Intermediate, 06/20/16) pt developed diffuse macular rash per ER MD notes. unclear if due to vanco or zosyn VANCOMYCIN (Verified Adverse Reaction, Intermediate, 06/20/16) pt developed diffuse macular rash per ER MD notes. unclear if due to vanco or zosyn Objective Last 24 Hour Vital Signs Date Time Temp Pulse Resp B/P Pulse Ox O2 Delivery O2 Flow Rate FiO2 06/22/16 12:00 97.8 86 27 150/77 95 Nasal Cannula 4.0 06/22/16 11:00 94 17 152/87 97 Nasal Cannula 4.0 06/22/16 10:00 92 22 148/84 94 Nasal Cannula 4.0 06/22/16 09:00 87 23 139/83 96 Nasal Cannula 4.0 06/22/16 08:25 90 06/22/16 08:00 98.4 100 22 135/77 98 Nasal Cannula 4.0 06/22/16 07:22 Nasal Cannula 5.0 44 06/22/16 07:22 94 Nasal Cannula 5.0 44 06/22/16 07:00 91 23 139/78 95 Nasal Cannula 4.0 06/22/16 06:12 95 20 99 Nasal Cannula 5.0 44 06/22/16 06:03 96 19 97 Nasal Cannula 5.0 44 06/22/16 06:00 93 25 149/88 93 Nasal Cannula 4.0 06/22/16 05:00 80 25 135/79 91 Nasal Cannula 4.0 06/22/16 04:00 93 06/22/16 04:00 98.9 87 23 128/73 95 Nasal Cannula 4.0 06/22/16 03:00 93 25 128/73 96 Nasal Cannula 4.0 06/22/16 02:00 89 20 147/78 98 Nasal Cannula 4.0 06/22/16 01:00 99 18 113/62 94 Nasal Cannula 4.0 06/22/16 00:00 98.3 110 20 135/77 95 Nasal Cannula 2.0 06/22/16 00:00 105 06/21/16 23:24 113 18 99 Nasal Cannula 5.0 44 06/21/16 23:18 104 18 97 Nasal Cannula 5.0 44 06/21/16 23:00 103 18 162/89 97 Nasal Cannula 2.0 06/21/16 22:00 109 18 143/90 98 Nasal Cannula 2.0 06/21/16 21:00 117 19 149/82 97 Nasal Cannula 2.0 06/21/16 20:00 112 20 154/82 97 Nasal Cannula 2.0 06/21/16 19:36 112 18 98 Nasal Cannula 5.0 44 06/21/16 19:29 98 Nasal Cannula 5.0 44 06/21/16 19:29 Nasal Cannula 5.0 44 06/21/16 19:26 118 14 94 Nasal Cannula 5.0 44 06/21/16 19:00 108 20 149/93 96 Nasal Cannula 2.0 06/21/16 18:41 97.8 93 23 143/75 Room Air 06/21/16 18:38 Room Air 06/21/16 18:04 95 20 147/87 96 Nasal Cannula 2.0 06/21/16 17:00 99 18 145/75 96 Nasal Cannula 2.0 06/21/16 16:00 98.5 95 20 155/65 94 Room Air 06/21/16 15:00 98 22 142/78 95 Room Air 06/21/16 14:45 Room Air 06/21/16 14:00 92 18 138/82 96 Room Air 06/21/16 13:00 90 18 141/79 95 Room Air Intake and Output 06/21/16 06/22/16 19:00 07:00 Intake Total 100 ml 455 ml Output Total 1660 ml 280 ml Balance -1560 ml 175 ml IV Total 100 ml 455 ml Output Urine Total 160 ml 280 ml Hemodialysis UF 1500 ml Laboratory Tests 06/21/16 17:00: Urine Random Sodium 69 06/22/16 04:00: Urine Eosinophils Occasional 06/22/16 08:35: White Blood Count 12.8H, Red Blood Count 3.97L, Hemoglobin 11.6L, Hematocrit 34.1L, Mean Corpuscular Volume 86, Mean Corpuscular Hemoglobin 29.2, Mean Corpuscular Hemoglobin Concent 33.9, Red Cell Distribution Width 11.3L, Platelet Count 367, Mean Platelet Volume 8.3, Neutrophils (%) (Auto) , Lymphocytes (%) (Auto) , Monocytes (%) (Auto) , Eosinophils (%) (Auto) , Basophils (%) (Auto) , Differential Total Cells Counted 100, Neutrophils % ( Manual) 87H, Lymphocytes % (Manual) 5L, Monocytes % (Manual) 8, Eosinophils % ( Manual) 0, Basophils % (Manual) 0, Band Neutrophils 0, Platelet Estimate Adequate, Platelet Morphology Normal, Red Blood Cell Morphology Normal, Sodium Level 139, Potassium Level 3.1L, Chloride Level 92L, Carbon Dioxide Level 29, Anion Gap 18H, Blood Urea Nitrogen 26H, Creatinine 6.3H, Estimat Glomerular Filtration Rate 10.1, Glucose Level 122H, Calcium Level 8.2L, Total Bilirubin 0.4, Aspartate Amino Transf (AST/SGOT) 17, Alanine Aminotransferase (ALT/SGPT) 13, Alkaline Phosphatase 56, Total Protein 6.6, Albumin 2.7L, Globulin 3.9, Albumin/Globulin Ratio 0.6L Height (Feet): 5 Height (Inches): 5.00 Weight (Pounds): 170 General Appearance: mild distress Cardiovascular: tachycardia Respiratory/Chest: decreased breath sounds Abdomen: distended Genitourinary/Rectal: other MILA GARCIA Jun 22, 2016 12:53
[2016-06-22] MEDS ORDERED: Nitroglycerin Subl 0.4mg tab (Bottle Of 25) SL PRN (13:00)
[2016-06-22] MEDS ORDERED: Miralax 17gm pkt ORAL PRN (13:00)
--- NOTE | 2016-06-22 13:54 | General Progress Note ---
Assessment/Plan Assessment/Plan ASSESSMENT: 1. Anemia secondary to chronic disease. 2. Decreased hemoglobin and hematocrit, rule out gastrointestinal bleed. 3. Leukocytosis due to underlying infection with pneumonia and/or histoplasmosis. 4. Nausea and vomiting potentially secondary to severe dehydration. 5. Community-acquired pneumonia on chest x-ray, is on linezolid and cefepime. 6. Histoplasmosis pneumonia. Imaging reviewed 7. Eosinophilia history that is resolved. 8. Acute kidney injury. RECOMMENDATIONS: 1. Monitor counts and maintain hemoglobin >7. 2. Antibiotics per ID service. 3. Anemia w/u reviewed 4. CAT scan of the chest. 5. Labs also reviewed 6. Repeat smear reviewed 7. Review viral studies 8. DVT prophylaxis with heparin sq 9. GI prophylaxis as needed. 10. staff Thank you, Gerry Winston MD Subjective Constitutional: Reports: no symptoms HEENT: Reports: no symptoms Cardiovascular: Reports: no symptoms Respiratory: Reports: no symptoms Gastrointestinal/Abdominal: Reports: no symptoms Genitourinary: Reports: burning Neurologic/Psychiatric: Reports: no symptoms Endocrine: Reports: no symptoms Hematologic/Lymphatic: Reports: anemia Allergies: Coded Allergies: PIPERACILLIN (Verified Adverse Reaction, Intermediate, 06/20/16) pt developed diffuse macular rash per ER MD notes. unclear if due to vanco or zosyn TAZOBACTAM (Verified Adverse Reaction, Intermediate, 06/20/16) pt developed diffuse macular rash per ER MD notes. unclear if due to vanco or zosyn VANCOMYCIN (Verified Adverse Reaction, Intermediate, 06/20/16) pt developed diffuse macular rash per ER MD notes. unclear if due to vanco or zosyn Subjective stable, h.h unchanged, is getting HD Objective Last 24 Hour Vital Signs Date Time Temp Pulse Resp B/P Pulse Ox O2 Delivery O2 Flow Rate FiO2 06/22/16 13:27 95 20 98 Nasal Cannula 5.0 44 06/22/16 13:26 83 18 93 Nasal Cannula 5.0 44 06/22/16 13:00 97.5 92 22 145/76 95 Nasal Cannula 4.0 06/22/16 12:00 97.8 86 27 150/77 95 Nasal Cannula 4.0 06/22/16 12:00 86 06/22/16 11:00 94 17 152/87 97 Nasal Cannula 4.0 06/22/16 10:00 92 22 148/84 94 Nasal Cannula 4.0 06/22/16 09:00 87 23 139/83 96 Nasal Cannula 4.0 06/22/16 08:25 90 06/22/16 08:00 98.4 100 22 135/77 98 Nasal Cannula 4.0 06/22/16 07:22 Nasal Cannula 5.0 44 06/22/16 07:22 94 Nasal Cannula 5.0 44 06/22/16 07:00 91 23 139/78 95 Nasal Cannula 4.0 06/22/16 06:12 95 20 99 Nasal Cannula 5.0 44 06/22/16 06:03 96 19 97 Nasal Cannula 5.0 44 06/22/16 06:00 93 25 149/88 93 Nasal Cannula 4.0 06/22/16 05:00 80 25 135/79 91 Nasal Cannula 4.0 06/22/16 04:00 93 06/22/16 04:00 98.9 87 23 128/73 95 Nasal Cannula 4.0 06/22/16 03:00 93 25 128/73 96 Nasal Cannula 4.0 06/22/16 02:00 89 20 147/78 98 Nasal Cannula 4.0 06/22/16 01:00 99 18 113/62 94 Nasal Cannula 4.0 06/22/16 00:00 98.3 110 20 135/77 95 Nasal Cannula 2.0 06/22/16 00:00 105 06/21/16 23:24 113 18 99 Nasal Cannula 5.0 44 06/21/16 23:18 104 18 97 Nasal Cannula 5.0 44 06/21/16 23:00 103 18 162/89 97 Nasal Cannula 2.0 06/21/16 22:00 109 18 143/90 98 Nasal Cannula 2.0 06/21/16 21:00 117 19 149/82 97 Nasal Cannula 2.0 06/21/16 20:00 112 20 154/82 97 Nasal Cannula 2.0 06/21/16 19:36 112 18 98 Nasal Cannula 5.0 44 06/21/16 19:29 98 Nasal Cannula 5.0 44 06/21/16 19:29 Nasal Cannula 5.0 44 06/21/16 19:26 118 14 94 Nasal Cannula 5.0 44 06/21/16 19:00 108 20 149/93 96 Nasal Cannula 2.0 06/21/16 18:41 97.8 93 23 143/75 Room Air 06/21/16 18:38 Room Air 06/21/16 18:04 95 20 147/87 96 Nasal Cannula 2.0 06/21/16 17:00 99 18 145/75 96 Nasal Cannula 2.0 06/21/16 16:00 98.5 95 20 155/65 94 Room Air 06/21/16 15:00 98 22 142/78 95 Room Air 06/21/16 14:45 Room Air 06/21/16 14:00 92 18 138/82 96 Room Air Intake and Output 06/21/16 06/22/16 19:00 07:00 Intake Total 100 ml 455 ml Output Total 1660 ml 280 ml Balance -1560 ml 175 ml IV Total 100 ml 455 ml Output Urine Total 160 ml 280 ml Hemodialysis UF 1500 ml Laboratory Tests 06/21/16 17:00: Urine Random Sodium 69 06/22/16 04:00: Urine Eosinophils Occasional 06/22/16 08:35: White Blood Count 12.8H, Red Blood Count 3.97L, Hemoglobin 11.6L, Hematocrit 34.1L, Mean Corpuscular Volume 86, Mean Corpuscular Hemoglobin 29.2, Mean Corpuscular Hemoglobin Concent 33.9, Red Cell Distribution Width 11.3L, Platelet Count 367, Mean Platelet Volume 8.3, Neutrophils (%) (Auto) , Lymphocytes (%) (Auto) , Monocytes (%) (Auto) , Eosinophils (%) (Auto) , Basophils (%) (Auto) , Differential Total Cells Counted 100, Neutrophils % ( Manual) 87H, Lymphocytes % (Manual) 5L, Monocytes % (Manual) 8, Eosinophils % ( Manual) 0, Basophils % (Manual) 0, Band Neutrophils 0, Platelet Estimate Adequate, Platelet Morphology Normal, Red Blood Cell Morphology Normal, Sodium Level 139, Potassium Level 3.1L, Chloride Level 92L, Carbon Dioxide Level 29, Anion Gap 18H, Blood Urea Nitrogen 26H, Creatinine 6.3H, Estimat Glomerular Filtration Rate 10.1, Glucose Level 122H, Calcium Level 8.2L, Total Bilirubin 0.4, Aspartate Amino Transf (AST/SGOT) 17, Alanine Aminotransferase (ALT/SGPT) 13, Alkaline Phosphatase 56, Total Protein 6.6, Albumin 2.7L, Globulin 3.9, Albumin/Globulin Ratio 0.6L Height (Feet): 5 Height (Inches): 5.00 Weight (Pounds): 170 General Appearance: no apparent distress EENT: TMs normal Neck: supple Cardiovascular: regular rhythm Respiratory/Chest: no respiratory distress Abdomen: soft Extremities: non-tender Edema: 1+ Leg (L), 1+ Leg (R) Edema: mild edema Skin: warm/dry Gerry Winston Jun 22, 2016 13:54
[2016-06-22] MEDS ORDERED: metroNIDAZOLE 500mg 100 ML IVPB SCH (14:00)
--- NOTE | 2016-06-22 15:08 | Cardiac Electrophysiology PN ---
Assessment/Plan Assessment/Plan 1. Tachycardia.Due to sinus tachycardia , due to patient's frequent, bilateral pulmonary process. There is no evidence of atrial fibrillation or any other supraventricular tachycardia. 2. History of hypertension, blood pressure currently is stable off any antihypertensives. 3. History of histoplasmosis. 4. Shortness of breath due to healthcare-associated pneumonia. Cefepime and Linezolid 5. Adverse reaction to antibiotics, unclear whether it was due to vancomycin versus Zosyn. Further evaluation is pending per Dr. Navarrete. 6. Acute renal failure. ? etiology. Had first dialysis yesterday. Next dialysis tomorrow am. HEIDI RN Subjective Subjective Transferred out of ICU. Had his first dialysis yesterday.Alert. at bedside.Awaiting another dialysis today or early tomorrow. Objective Last 24 Hour Vital Signs Date Time Temp Pulse Resp B/P Pulse Ox O2 Delivery O2 Flow Rate FiO2 06/22/16 13:27 95 20 98 Nasal Cannula 5.0 44 06/22/16 13:26 83 18 93 Nasal Cannula 5.0 44 06/22/16 13:00 97.5 92 22 145/76 95 Nasal Cannula 4.0 06/22/16 12:00 97.8 86 27 150/77 95 Nasal Cannula 4.0 06/22/16 12:00 86 06/22/16 11:00 94 17 152/87 97 Nasal Cannula 4.0 06/22/16 10:00 92 22 148/84 94 Nasal Cannula 4.0 06/22/16 09:00 87 23 139/83 96 Nasal Cannula 4.0 06/22/16 08:25 90 06/22/16 08:00 98.4 100 22 135/77 98 Nasal Cannula 4.0 06/22/16 07:22 Nasal Cannula 5.0 44 06/22/16 07:22 94 Nasal Cannula 5.0 44 06/22/16 07:00 91 23 139/78 95 Nasal Cannula 4.0 06/22/16 06:12 95 20 99 Nasal Cannula 5.0 44 06/22/16 06:03 96 19 97 Nasal Cannula 5.0 44 06/22/16 06:00 93 25 149/88 93 Nasal Cannula 4.0 06/22/16 05:00 80 25 135/79 91 Nasal Cannula 4.0 06/22/16 04:00 93 06/22/16 04:00 98.9 87 23 128/73 95 Nasal Cannula 4.0 06/22/16 03:00 93 25 128/73 96 Nasal Cannula 4.0 06/22/16 02:00 89 20 147/78 98 Nasal Cannula 4.0 06/22/16 01:00 99 18 113/62 94 Nasal Cannula 4.0 06/22/16 00:00 98.3 110 20 135/77 95 Nasal Cannula 2.0 06/22/16 00:00 105 06/21/16 23:24 113 18 99 Nasal Cannula 5.0 44 06/21/16 23:18 104 18 97 Nasal Cannula 5.0 44 06/21/16 23:00 103 18 162/89 97 Nasal Cannula 2.0 06/21/16 22:00 109 18 143/90 98 Nasal Cannula 2.0 06/21/16 21:00 117 19 149/82 97 Nasal Cannula 2.0 06/21/16 20:00 112 20 154/82 97 Nasal Cannula 2.0 06/21/16 19:36 112 18 98 Nasal Cannula 5.0 44 06/21/16 19:29 98 Nasal Cannula 5.0 44 06/21/16 19:29 Nasal Cannula 5.0 44 06/21/16 19:26 118 14 94 Nasal Cannula 5.0 44 06/21/16 19:00 108 20 149/93 96 Nasal Cannula 2.0 06/21/16 18:41 97.8 93 23 143/75 Room Air 06/21/16 18:38 Room Air 06/21/16 18:04 95 20 147/87 96 Nasal Cannula 2.0 06/21/16 17:00 99 18 145/75 96 Nasal Cannula 2.0 06/21/16 16:00 98.5 95 20 155/65 94 Room Air Intake and Output 06/21/16 06/22/16 19:00 07:00 Intake Total 100 ml 455 ml Output Total 1660 ml 280 ml Balance -1560 ml 175 ml IV Total 100 ml 455 ml Output Urine Total 160 ml 280 ml Hemodialysis UF 1500 ml Laboratory Tests Test 06/21/16 17:00 06/22/16 04:00 06/22/16 08:35 Urine Random Sodium 69 mmol/L Urine Eosinophils Occasional White Blood Count 12.8 K/UL (4.8-10.8) H Red Blood Count 3.97 M/UL (4.70-6.10) L Hemoglobin 11.6 G/DL (14.2-18.0) L Hematocrit 34.1 % (42.0-52.0) L Mean Corpuscular Volume 86 FL (80-99) Mean Corpuscular Hemoglobin 29.2 PG (27.0-31.0) Mean Corpuscular Hemoglobin Concent 33.9 G/DL (32.0-36.0) Red Cell Distribution Width 11.3 % (11.6-14.8) L Platelet Count 367 K/UL (150-450) Mean Platelet Volume 8.3 FL (6.5-10.1) Neutrophils (%) (Auto) % (45.0-75.0) Lymphocytes (%) (Auto) % (20.0-45.0) Monocytes (%) (Auto) % (1.0-10.0) Eosinophils (%) (Auto) % (0.0-3.0) Basophils (%) (Auto) % (0.0-2.0) Differential Total Cells Counted 100 Neutrophils % (Manual) 87 % (45-75) H Lymphocytes % (Manual) 5 % (20-45) L Monocytes % (Manual) 8 % (1-10) Eosinophils % (Manual) 0 % (0-3) Basophils % (Manual) 0 % (0-2) Band Neutrophils 0 % (0-8) Platelet Estimate Adequate Platelet Morphology Normal Red Blood Cell Morphology Normal Sodium Level 139 mEQ/L (135-145) Potassium Level 3.1 mEQ/L (3.4-4.9) L Chloride Level 92 mEQ/L (98-107) L Carbon Dioxide Level 29 mEQ/L (20-30) Anion Gap 18 (5-15) H Blood Urea Nitrogen 26 mg/dL (7-23) H Creatinine 6.3 mg/dL (0.7-1.2) H Estimat Glomerular Filtration Rate 10.1 mL/min (>60) Glucose Level 122 mg/dL (74-106) H Calcium Level 8.2 mg/dL (8.6-10.2) L Total Bilirubin 0.4 mg/dL (0.0-1.2) Aspartate Amino Transf (AST/SGOT) 17 U/L (5-40) Alanine Aminotransferase (ALT/SGPT) 13 U/L (3-41) Alkaline Phosphatase 56 U/L (40-129) Total Protein 6.6 g/dL (6.6-8.7) Albumin 2.7 g/dL (3.5-5.2) L Globulin 3.9 g/dL Albumin/Globulin Ratio 0.6 (1.0-2.7) L Objective 1. Tachycardia. Sinus tachycardia is likely due to patient's frequent, bilateral pulmonary process, abdominal pain. No atrial fibrillation or SVT. 2. History of hypertension, blood pressure currently is stable range between 190 to 138 systolic, is off any antihypertensives. 3. History of histoplasmosis. 4. Shortness of breath due to healthcare-associated pneumonia. The patient was evaluated by ID and was started empiric Zyvox. 5. Adverse reaction to antibiotics, unclear whether it was due to vancomycin versus Zosyn but could be due to red man syndrome after rapid injection of vancomycin per Dr. Navarrete. 6. Acute renal failyure. Started on HD today. HEIDI IBRAHIM and JOHN Butler Jun 22, 2016 15:08
--- NOTE | 2016-06-22 16:53 | Diagnostic Imaging Report ---
Indication: Patient requires hemodialysis. Findings: After the indications, procedure, risks, complications, and alternatives of the procedure were explained, written informed consent was obtained. The neck was prepped with alcohol. All elements of maximal sterile barrier technique were followed including usage of a cap, mask, sterile gown, sterile gloves, hand hygiene and a large sterile sheet. 1% lidocaine was used to anesthetize the skin. Sonographic evaluation was performed demonstrating a patent and compressible jugular vein. Access was obtained under real-time ultrasound guidance using an 18 gauge needle and a digital image was saved in archive. An 0.035 wire was then advanced into the vein. Needle exchanged for a dilator. A temporary hemodialysis catheter was then advanced over the wire. Wire was removed. Catheter was secured to the skin using 2-0 Prolene suture. Both ports aspirate and flush easily. Fluoroscopic imaging was utilized to negotiate the 035 wire into position. Final position of the hemodialysis catheter was confirmed by fluoroscopy. Total fluoroscopic times O.2 minutes The catheter is cleared for use. Impression: Successful placement of right jugular hemodialysis catheter.
--- NOTE | 2016-06-22 16:56 | Infectious Diseases Prog Note ---
Assessment/Plan Problems: (1) Lung abscess Assessment & Plan: await sputum for culture, continue zyvox, cefepime and add flagyl for anaerobic coverage, will treat for 4 weeks , recommend repeat CT scan of the chest in 4 weeks for follow up, pulmonary is following (2) HCAP (healthcare-associated pneumonia) Assessment & Plan: improving, continue zyvox , and cefepime empirically , await sputum and blood culture, had allergic reaction to either vancomycin or zosyn, most likely vancomycin with red man syndrome, will avoid for now. (3) Vomiting Assessment & Plan: due to pneumonia, improving, continue supportive care , monitor labs, continue hydration (4) Adverse reaction to antibiotic Assessment & Plan: unclear whether due to vancomycin VS zosyn , most likely vancomycin since it happened fast after infusion, suspect red man syndrome, will check blood eosinophils counts in blood. avoid both classes of antibiotics for now, ok to use cephalosporins since he received it last admission with no reaction (5) Histoplasmosis pneumonia Assessment & Plan: continue itraconazole, monitor LFT (6) LISET (acute kidney injury) Assessment & Plan: had HD cath placed by renal, and started on HD, avoid nephrotoxic meds. Subjective Constitutional: Reports: anorexia, fatigue Respiratory: Reports: productive cough Allergies: Coded Allergies: PIPERACILLIN (Verified Adverse Reaction, Intermediate, 06/20/16) pt developed diffuse macular rash per ER MD notes. unclear if due to vanco or zosyn TAZOBACTAM (Verified Adverse Reaction, Intermediate, 06/20/16) pt developed diffuse macular rash per ER MD notes. unclear if due to vanco or zosyn VANCOMYCIN (Verified Adverse Reaction, Intermediate, 06/20/16) pt developed diffuse macular rash per ER MD notes. unclear if due to vanco or zosyn All Systems: reviewed and negative except above Subjective he feels better today, still have productive cough with yellowish phlegm, less fever, no chills, no vomiting. no skin rash or hives, tolerated current antibiotics well. Objective Vital Signs Last 24 Hour Vital Signs Date Time Temp Pulse Resp B/P Pulse Ox O2 Delivery O2 Flow Rate FiO2 06/22/16 16:00 98.7 98 22 134/73 98 Nasal Cannula 4.0 06/22/16 13:27 95 20 98 Nasal Cannula 5.0 44 06/22/16 13:26 83 18 93 Nasal Cannula 5.0 44 06/22/16 13:00 97.5 92 22 145/76 95 Nasal Cannula 4.0 06/22/16 12:00 97.8 86 27 150/77 95 Nasal Cannula 4.0 06/22/16 12:00 86 06/22/16 11:00 94 17 152/87 97 Nasal Cannula 4.0 06/22/16 10:00 92 22 148/84 94 Nasal Cannula 4.0 06/22/16 09:00 87 23 139/83 96 Nasal Cannula 4.0 06/22/16 08:25 90 06/22/16 08:00 98.4 100 22 135/77 98 Nasal Cannula 4.0 06/22/16 07:22 Nasal Cannula 5.0 44 06/22/16 07:22 94 Nasal Cannula 5.0 44 06/22/16 07:00 91 23 139/78 95 Nasal Cannula 4.0 06/22/16 06:12 95 20 99 Nasal Cannula 5.0 44 06/22/16 06:03 96 19 97 Nasal Cannula 5.0 44 06/22/16 06:00 93 25 149/88 93 Nasal Cannula 4.0 06/22/16 05:00 80 25 135/79 91 Nasal Cannula 4.0 06/22/16 04:00 93 06/22/16 04:00 98.9 87 23 128/73 95 Nasal Cannula 4.0 06/22/16 03:00 93 25 128/73 96 Nasal Cannula 4.0 06/22/16 02:00 89 20 147/78 98 Nasal Cannula 4.0 06/22/16 01:00 99 18 113/62 94 Nasal Cannula 4.0 06/22/16 00:00 98.3 110 20 135/77 95 Nasal Cannula 2.0 06/22/16 00:00 105 06/21/16 23:24 113 18 99 Nasal Cannula 5.0 44 06/21/16 23:18 104 18 97 Nasal Cannula 5.0 44 06/21/16 23:00 103 18 162/89 97 Nasal Cannula 2.0 06/21/16 22:00 109 18 143/90 98 Nasal Cannula 2.0 06/21/16 21:00 117 19 149/82 97 Nasal Cannula 2.0 06/21/16 20:00 112 20 154/82 97 Nasal Cannula 2.0 06/21/16 19:36 112 18 98 Nasal Cannula 5.0 44 06/21/16 19:29 98 Nasal Cannula 5.0 44 06/21/16 19:29 Nasal Cannula 5.0 44 06/21/16 19:26 118 14 94 Nasal Cannula 5.0 44 06/21/16 19:00 108 20 149/93 96 Nasal Cannula 2.0 06/21/16 18:41 97.8 93 23 143/75 Room Air 06/21/16 18:38 Room Air 06/21/16 18:04 95 20 147/87 96 Nasal Cannula 2.0 06/21/16 17:00 99 18 145/75 96 Nasal Cannula 2.0 Height (Feet): 5 Height (Inches): 5.00 Weight (Pounds): 170 General Appearance: WD/WN, no acute distress HEENT: normocephalic, atraumatic, anicteric, mucous membranes moist Respiratory/Chest: chest wall non-tender, no respiratory distress, no accessory muscle use, decreased breath sounds, crackles/rales, expiratory wheezing Cardiovascular: normal peripheral pulses, normal rate, regular rhythm, no gallop/murmur, no JVD Abdomen: normal bowel sounds, soft, non tender, no organomegaly, non distended , no mass Extremities: no cyanosis, no clubbing Skin: no rash, no lesions, no ulcers Laboratory Tests Test 06/21/16 17:00 06/22/16 04:00 06/22/16 08:35 Urine Random Sodium 69 mmol/L Urine Eosinophils Occasional White Blood Count 12.8 K/UL (4.8-10.8) H Red Blood Count 3.97 M/UL (4.70-6.10) L Hemoglobin 11.6 G/DL (14.2-18.0) L Hematocrit 34.1 % (42.0-52.0) L Mean Corpuscular Volume 86 FL (80-99) Mean Corpuscular Hemoglobin 29.2 PG (27.0-31.0) Mean Corpuscular Hemoglobin Concent 33.9 G/DL (32.0-36.0) Red Cell Distribution Width 11.3 % (11.6-14.8) L Platelet Count 367 K/UL (150-450) Mean Platelet Volume 8.3 FL (6.5-10.1) Neutrophils (%) (Auto) % (45.0-75.0) Lymphocytes (%) (Auto) % (20.0-45.0) Monocytes (%) (Auto) % (1.0-10.0) Eosinophils (%) (Auto) % (0.0-3.0) Basophils (%) (Auto) % (0.0-2.0) Differential Total Cells Counted 100 Neutrophils % (Manual) 87 % (45-75) H Lymphocytes % (Manual) 5 % (20-45) L Monocytes % (Manual) 8 % (1-10) Eosinophils % (Manual) 0 % (0-3) Basophils % (Manual) 0 % (0-2) Band Neutrophils 0 % (0-8) Platelet Estimate Adequate Platelet Morphology Normal Red Blood Cell Morphology Normal Sodium Level 139 mEQ/L (135-145) Potassium Level 3.1 mEQ/L (3.4-4.9) L Chloride Level 92 mEQ/L (98-107) L Carbon Dioxide Level 29 mEQ/L (20-30) Anion Gap 18 (5-15) H Blood Urea Nitrogen 26 mg/dL (7-23) H Creatinine 6.3 mg/dL (0.7-1.2) H Estimat Glomerular Filtration Rate 10.1 mL/min (>60) Glucose Level 122 mg/dL (74-106) H Calcium Level 8.2 mg/dL (8.6-10.2) L Total Bilirubin 0.4 mg/dL (0.0-1.2) Aspartate Amino Transf (AST/SGOT) 17 U/L (5-40) Alanine Aminotransferase (ALT/SGPT) 13 U/L (3-41) Alkaline Phosphatase 56 U/L (40-129) Total Protein 6.6 g/dL (6.6-8.7) Albumin 2.7 g/dL (3.5-5.2) L Globulin 3.9 g/dL Albumin/Globulin Ratio 0.6 (1.0-2.7) L Current Medications Medications (Trade) Dose Ordered Sig/Keila Route PRN Reason Start Time Stop Time Status Last Admin Dose Admin Acetaminophen (Tylenol) 650 mg Q4H PRN ORAL fever 06/22/16 13:00 07/22/16 12:59 Albuterol/ Ipratropium (DuoNeb 0.5-3(2.5)mg/3ml) 3 ml Q4HRT PRN HHN Shortness of Breath 06/22/16 13:00 06/27/16 12:59 06/22/16 13:28 Cefepime HCl 1 gm/ Dextrose 55 ml @ 110 mls/hr Q24H IV 06/22/16 21:00 06/28/16 20:59 Clonidine HCl (Catapres) 0.1 mg Q4H PRN ORAL BP over 170 syst 06/22/16 13:00 07/22/16 12:59 Heparin Sodium (Porcine) (Heparin 5000 units/ml) 5,000 units EVERY 12 HOURS SUBQ 06/22/16 21:00 07/22/16 20:59 Itraconazole (Sporanox) 200 mg Q12HR ORAL 06/22/16 21:00 06/28/16 20:59 Linezolid 300 ml @ 300 mls/hr Q12HR IVPB 06/22/16 21:00 06/28/16 20:59 Methylprednisolone Sodium Succinate (Solu-MEDROL) 125 mg DAILY IV 06/23/16 09:00 06/27/16 09:01 Metronidazole (Flagyl) 100 ml @ 100 mls/hr Q8HR IVPB 06/22/16 14:00 06/28/16 13:59 06/22/16 14:35 Nitroglycerin (Ntg) 0.4 mg Q5MIN X3 PRN SL Prn Chest Pain 06/22/16 13:00 07/22/16 12:59 Ondansetron HCl (Zofran) 4 mg Q6H PRN IVP Nausea & Vomiting 06/22/16 13:00 07/22/16 12:59 Pantoprazole (Protonix) 40 mg DAILY IVP 06/23/16 09:00 07/23/16 08:59 Polyethylene Glycol (Miralax) 17 gm DAILYPRN PRN ORAL Constipation 06/22/16 13:00 07/22/16 12:59 Promethazine HCl/ Codeine (Phenergan with Codeine) 5 ml Q4H PRN ORAL For Cough 06/22/16 13:00 07/22/16 12:59 06/22/16 16:31 Temazepam (Restoril) 15 mg HSPRN PRN ORAL Insomnia 06/22/16 21:00 06/29/16 20:59 Erin Navarrete M.D. Jun 22, 2016 16:56
[2016-06-22] MEDS ORDERED: Cefepime HCl 1 GM in D5W 55 ML IV SCH (21:00)
[2016-06-22] MEDS: metroNIDAZOLE 500mg tab ORAL SCH (21:45)
[2016-06-23] VITALS (7 sets, daily range): BP systolic 77–142; BP diastolic 35–80
[2016-06-23 05:34] LABS: MEAN CORPUSCULAR HEMOGLOBIN 29.6 PG (27.0-31.0); MEAN CORPUSCULAR HGB CONC 33.1 G/DL (32.0-36.0); MEAN CORPUSCULAR VOLUME 89 FL (80-99); MEAN PLATELET VOLUME 6.9 FL (6.5-10.1); PLATELET COUNT 397 K/UL (150-450); RED BLOOD COUNT 3.87 M/UL (4.70-6.10); RED CELL DISTRIBUTION WIDTH 11.4 % (11.6-14.8); WHITE BLOOD COUNT 15.3 K/UL (4.8-10.8)
[2016-06-23 05:59] LABS: ALBUMIN/GLOBULIN RATIO 0.6 (1.0-2.7); CALCIUM 8.5 mg/dL (8.6-10.2); GLOMERULAR FILTRATION RATE 7.6 mL/min (>60); POTASSIUM 3.5 mEQ/L (3.4-4.9); TOTAL PROTEIN 6.9 g/dL (6.6-8.7)
[2016-06-23] MEDS: metroNIDAZOLE 500mg tab ORAL SCH ×3 (06:14→22:26)
[2016-06-23] MEDS: Promethazine/Codeine 5ml UD ORAL PRN ×2 (06:16→23:46)
[2016-06-23 06:56] LABS: CRP QUANT 15.1 mg/dL (< 0.5); MAGNESIUM 2.6 mg/dL (1.7-2.5); URIC ACID 12.4 mg/dL (3.0-7.5)
[2016-06-23] MEDS ORDERED: Pantoprazole Inj IVP SCH (09:00)
[2016-06-23] MEDS ORDERED: Solu-MEDROL 125mg Inj IV SCH ×2 (09:00)
[2016-06-23] MEDS: Heparin 5000 units/ml inj SUBQ SCH ×2 (09:15→20:42)
--- NOTE | 2016-06-23 10:37 | General Progress Note ---
Assessment/Plan Problem List: (1) Histoplasmosis pneumonia ICD Codes: B39.2 - Pulmonary histoplasmosis capsulati, unspecified SNOMED: 208840892 (2) Vomiting ICD Codes: R11.10 - Vomiting, unspecified SNOMED: 388848730 (3) Adverse reaction to antibiotic ICD Codes: T36.95XA - Adverse effect of unspecified systemic antibiotic, initial encounter SNOMED: 716400824, 011569758 Qualifiers: Qualified Codes: T36.95XA - Adverse effect of unspecified systemic antibiotic, initial encounter (4) Cavitary lung disease ICD Codes: J98.4 - Other disorders of lung SNOMED: 12697054 (5) Pneumonia ICD Codes: J18.9 - Pneumonia, unspecified organism SNOMED: 952748242 (6) HTN (hypertension) ICD Codes: I10 - Essential (primary) hypertension SNOMED: 73630214 Qualifiers: Qualified Codes: I10 - Essential (primary) hypertension (7) Hyperlipidemia, mixed ICD Codes: E78.2 - Mixed hyperlipidemia SNOMED: 177637887 (8) Pleurisy ICD Codes: R09.1 - Pleurisy SNOMED: 220007295 Status: progressing Assessment/Plan afebrile pna resp insuff sepsis vitals holding no wheezing Subjective ROS Limited/Unobtainable: Yes Constitutional: Reports: no symptoms Allergies: Coded Allergies: PIPERACILLIN (Verified Adverse Reaction, Intermediate, 06/20/16) pt developed diffuse macular rash per ER MD notes. unclear if due to vanco or zosyn TAZOBACTAM (Verified Adverse Reaction, Intermediate, 06/20/16) pt developed diffuse macular rash per ER MD notes. unclear if due to vanco or zosyn VANCOMYCIN (Verified Adverse Reaction, Intermediate, 06/20/16) pt developed diffuse macular rash per ER MD notes. unclear if due to vanco or zosyn Objective Last 24 Hour Vital Signs Date Time Temp Pulse Resp B/P Pulse Ox O2 Delivery O2 Flow Rate FiO2 06/23/16 08:00 96 06/23/16 08:00 97.7 92 24 142/76 94 Nasal Cannula 2.0 06/23/16 07:46 Nasal Cannula 4.0 36 06/23/16 07:45 95 Nasal Cannula 4.0 36 06/23/16 07:15 Nasal Cannula 2.0 06/23/16 07:10 97.2 90 128/68 2.0 06/23/16 04:29 86 06/23/16 04:00 Nasal Cannula 2.0 06/23/16 04:00 97.0 92 20 124/77 97 Nasal Cannula 2.0 06/23/16 03:56 97.0 90 22 127/79 93 Nasal Cannula 4.0 06/23/16 00:00 94 06/22/16 23:32 96.1 99 20 126/60 92 Nasal Cannula 4.0 06/22/16 21:33 83 20 96 Nasal Cannula 4.0 36 06/22/16 21:28 36 06/22/16 21:27 102 16 96 Nasal Cannula 4.0 36 06/22/16 20:00 97.3 97 20 143/81 93 Nasal Cannula 4.0 06/22/16 20:00 97 06/22/16 19:00 Nasal Cannula 4.0 36 06/22/16 19:00 95 Nasal Cannula 4.0 36 06/22/16 17:38 82 20 97 Nasal Cannula 5.0 44 06/22/16 17:37 86 18 91 Nasal Cannula 5.0 44 06/22/16 17:00 94 06/22/16 16:00 98.7 98 22 134/73 98 Nasal Cannula 4.0 06/22/16 13:27 95 20 98 Nasal Cannula 5.0 44 06/22/16 13:26 83 18 93 Nasal Cannula 5.0 44 06/22/16 13:00 97.5 92 22 145/76 95 Nasal Cannula 4.0 06/22/16 12:00 97.8 86 27 150/77 95 Nasal Cannula 4.0 06/22/16 12:00 86 06/22/16 11:00 94 17 152/87 97 Nasal Cannula 4.0 Intake and Output 06/22/16 06/23/16 19:00 07:00 Intake Total 910 ml 400 ml Output Total 155 ml 305 ml Balance 755 ml 95 ml Intake Oral 540 ml 400 ml IV Total 300 ml Other 70 ml Output Urine Total 155 ml 305 ml # Bowel Movements 1 Laboratory Tests 06/23/16 04:00: Urine Eosinophils Rare 06/23/16 04:10: White Blood Count 15.3H, Red Blood Count 3.87L, Hemoglobin 11.4L, Hematocrit 34.6L, Mean Corpuscular Volume 89, Mean Corpuscular Hemoglobin 29.6, Mean Corpuscular Hemoglobin Concent 33.1, Red Cell Distribution Width 11.4L, Platelet Count 397, Mean Platelet Volume 6.9, Neutrophils (%) (Auto) , Lymphocytes (%) (Auto) , Monocytes (%) (Auto) , Eosinophils (%) (Auto) , Basophils (%) (Auto) , Sodium Level 138, Potassium Level 3.5, Chloride Level 93L , Carbon Dioxide Level 25, Anion Gap 20H, Blood Urea Nitrogen 39H, Creatinine 8.0H, Estimat Glomerular Filtration Rate 7.6, Glucose Level 150H, Uric Acid 12.4H, Calcium Level 8.5L, Phosphorus Level 7.0H, Magnesium Level 2.6H, Total Bilirubin 0.4, Gamma Glutamyl Transpeptidase 38, Aspartate Amino Transf (AST/ SGOT) 19, Alanine Aminotransferase (ALT/SGPT) 15, Alkaline Phosphatase 63, Total Creatine Kinase 145, C-Reactive Protein, Quantitative 15.1H, Pro-B-Type Natriuretic Peptide 484H, Total Protein 6.9, Albumin 2.6L, Globulin 4.3, Albumin /Globulin Ratio 0.6L Height (Feet): 5 Height (Inches): 5.00 Weight (Pounds): 170 EENT: PERRL/EOMI Neck: supple Cardiovascular: normal rate Respiratory/Chest: lungs clear Jesse Dean MD Jun 23, 2016 10:37
--- NOTE | 2016-06-23 10:53 | General Progress Note ---
Assessment/Plan Status: stable Assessment/Plan Status: Acute renal failure ( Allergic vs Sepsis) Urine positive for Eosinophils leading to Allergic etiology Other: 1) Lung abscess (2) Pneumonia (3) HTN (hypertension) (4) Adverse reaction to antibiotic (5) Pleurisy (6) HCAP (healthcare-associated pneumonia) Plan: HD 06/21 , will repeat today- Solumedrol daily - monitor renal parameters- start Phos binders- DC sosa Subjective ROS Limited/Unobtainable: No Constitutional: Reports: malaise Allergies: Coded Allergies: PIPERACILLIN (Verified Adverse Reaction, Intermediate, 06/20/16) pt developed diffuse macular rash per ER MD notes. unclear if due to vanco or zosyn TAZOBACTAM (Verified Adverse Reaction, Intermediate, 06/20/16) pt developed diffuse macular rash per ER MD notes. unclear if due to vanco or zosyn VANCOMYCIN (Verified Adverse Reaction, Intermediate, 06/20/16) pt developed diffuse macular rash per ER MD notes. unclear if due to vanco or zosyn Objective Last 24 Hour Vital Signs Date Time Temp Pulse Resp B/P Pulse Ox O2 Delivery O2 Flow Rate FiO2 06/23/16 08:00 96 06/23/16 08:00 97.7 92 24 142/76 94 Nasal Cannula 2.0 06/23/16 07:46 Nasal Cannula 4.0 36 06/23/16 07:45 95 Nasal Cannula 4.0 36 06/23/16 07:15 Nasal Cannula 2.0 06/23/16 07:10 97.2 90 128/68 2.0 06/23/16 04:29 86 06/23/16 04:00 Nasal Cannula 2.0 06/23/16 04:00 97.0 92 20 124/77 97 Nasal Cannula 2.0 06/23/16 03:56 97.0 90 22 127/79 93 Nasal Cannula 4.0 06/23/16 00:00 94 06/22/16 23:32 96.1 99 20 126/60 92 Nasal Cannula 4.0 06/22/16 21:33 83 20 96 Nasal Cannula 4.0 36 06/22/16 21:28 36 06/22/16 21:27 102 16 96 Nasal Cannula 4.0 36 06/22/16 20:00 97.3 97 20 143/81 93 Nasal Cannula 4.0 06/22/16 20:00 97 06/22/16 19:00 Nasal Cannula 4.0 36 06/22/16 19:00 95 Nasal Cannula 4.0 36 06/22/16 17:38 82 20 97 Nasal Cannula 5.0 44 06/22/16 17:37 86 18 91 Nasal Cannula 5.0 44 06/22/16 17:00 94 06/22/16 16:00 98.7 98 22 134/73 98 Nasal Cannula 4.0 06/22/16 13:27 95 20 98 Nasal Cannula 5.0 44 06/22/16 13:26 83 18 93 Nasal Cannula 5.0 44 06/22/16 13:00 97.5 92 22 145/76 95 Nasal Cannula 4.0 06/22/16 12:00 97.8 86 27 150/77 95 Nasal Cannula 4.0 06/22/16 12:00 86 06/22/16 11:00 94 17 152/87 97 Nasal Cannula 4.0 Intake and Output 06/22/16 06/23/16 19:00 07:00 Intake Total 910 ml 400 ml Output Total 155 ml 305 ml Balance 755 ml 95 ml Intake Oral 540 ml 400 ml IV Total 300 ml Other 70 ml Output Urine Total 155 ml 305 ml # Bowel Movements 1 Laboratory Tests 06/23/16 04:00: Urine Eosinophils Rare 06/23/16 04:10: White Blood Count 15.3H, Red Blood Count 3.87L, Hemoglobin 11.4L, Hematocrit 34.6L, Mean Corpuscular Volume 89, Mean Corpuscular Hemoglobin 29.6, Mean Corpuscular Hemoglobin Concent 33.1, Red Cell Distribution Width 11.4L, Platelet Count 397, Mean Platelet Volume 6.9, Neutrophils (%) (Auto) , Lymphocytes (%) (Auto) , Monocytes (%) (Auto) , Eosinophils (%) (Auto) , Basophils (%) (Auto) , Sodium Level 138, Potassium Level 3.5, Chloride Level 93L , Carbon Dioxide Level 25, Anion Gap 20H, Blood Urea Nitrogen 39H, Creatinine 8.0H, Estimat Glomerular Filtration Rate 7.6, Glucose Level 150H, Uric Acid 12.4H, Calcium Level 8.5L, Phosphorus Level 7.0H, Magnesium Level 2.6H, Total Bilirubin 0.4, Gamma Glutamyl Transpeptidase 38, Aspartate Amino Transf (AST/ SGOT) 19, Alanine Aminotransferase (ALT/SGPT) 15, Alkaline Phosphatase 63, Total Creatine Kinase 145, C-Reactive Protein, Quantitative 15.1H, Pro-B-Type Natriuretic Peptide 484H, Total Protein 6.9, Albumin 2.6L, Globulin 4.3, Albumin /Globulin Ratio 0.6L Height (Feet): 5 Height (Inches): 5.00 Weight (Pounds): 170 General Appearance: no apparent distress Objective PE no change MILA GARCIA Jun 23, 2016 10:53
--- NOTE | 2016-06-23 12:03 | Diagnostic Imaging Report ---
Indication: Dyspnea Comparison: 06/19/16 A single view chest radiograph was obtained. Findings: Heart is enlarged. There is suspected infiltrate versus atelectasis at the right lung base. Right jugular line is present in good position. Mild vascular prominence without overt CHF. Impression: No significant change.
--- NOTE | 2016-06-23 12:17 | Pulmonology Progress Note ---
Assessment/Plan Problems: (1) Lung abscess (2) Pneumonia (3) HTN (hypertension) (4) Adverse reaction to antibiotic (5) Pleurisy (6) HCAP (healthcare-associated pneumonia) Assessment/Plan blood cultures negative no sputum culture yet. could go to med/surg receiving HD check electrolytes continue antibiotics Subjective ROS Limited/Unobtainable: No Interval Events: dong better Constitutional: Reports: no symptoms Allergies: Coded Allergies: PIPERACILLIN (Verified Adverse Reaction, Intermediate, 06/20/16) pt developed diffuse macular rash per ER MD notes. unclear if due to vanco or zosyn TAZOBACTAM (Verified Adverse Reaction, Intermediate, 06/20/16) pt developed diffuse macular rash per ER MD notes. unclear if due to vanco or zosyn VANCOMYCIN (Verified Adverse Reaction, Intermediate, 06/20/16) pt developed diffuse macular rash per ER MD notes. unclear if due to vanco or zosyn Objective Last 24 Hour Vital Signs Date Time Temp Pulse Resp B/P Pulse Ox O2 Delivery O2 Flow Rate FiO2 06/23/16 08:00 96 06/23/16 08:00 97.7 92 24 142/76 94 Nasal Cannula 2.0 06/23/16 07:46 Nasal Cannula 4.0 36 06/23/16 07:45 95 Nasal Cannula 4.0 36 06/23/16 07:15 Nasal Cannula 2.0 06/23/16 07:10 97.2 90 128/68 2.0 06/23/16 04:29 86 06/23/16 04:00 Nasal Cannula 2.0 06/23/16 04:00 97.0 92 20 124/77 97 Nasal Cannula 2.0 06/23/16 03:56 97.0 90 22 127/79 93 Nasal Cannula 4.0 06/23/16 00:00 94 06/22/16 23:32 96.1 99 20 126/60 92 Nasal Cannula 4.0 06/22/16 21:33 83 20 96 Nasal Cannula 4.0 36 06/22/16 21:28 36 06/22/16 21:27 102 16 96 Nasal Cannula 4.0 36 06/22/16 20:00 97.3 97 20 143/81 93 Nasal Cannula 4.0 06/22/16 20:00 97 06/22/16 19:00 Nasal Cannula 4.0 36 06/22/16 19:00 95 Nasal Cannula 4.0 36 06/22/16 17:38 82 20 97 Nasal Cannula 5.0 44 06/22/16 17:37 86 18 91 Nasal Cannula 5.0 44 06/22/16 17:00 94 06/22/16 16:00 98.7 98 22 134/73 98 Nasal Cannula 4.0 06/22/16 13:27 95 20 98 Nasal Cannula 5.0 44 06/22/16 13:26 83 18 93 Nasal Cannula 5.0 44 06/22/16 13:00 97.5 92 22 145/76 95 Nasal Cannula 4.0 Intake and Output 06/22/16 06/23/16 19:00 07:00 Intake Total 910 ml 400 ml Output Total 155 ml 305 ml Balance 755 ml 95 ml Intake Oral 540 ml 400 ml IV Total 300 ml Other 70 ml Output Urine Total 155 ml 305 ml # Bowel Movements 1 General Appearance: WD/WN HEENT: normocephalic, atraumatic Respiratory/Chest: chest wall non-tender, lungs clear Cardiovascular: normal peripheral pulses, normal rate Abdomen: normal bowel sounds, soft, non tender Extremities: no cyanosis Laboratory Tests 06/23/16 04:00: Urine Eosinophils Rare 06/23/16 04:10: White Blood Count 15.3H, Red Blood Count 3.87L, Hemoglobin 11.4L, Hematocrit 34.6L, Mean Corpuscular Volume 89, Mean Corpuscular Hemoglobin 29.6, Mean Corpuscular Hemoglobin Concent 33.1, Red Cell Distribution Width 11.4L, Platelet Count 397, Mean Platelet Volume 6.9, Neutrophils (%) (Auto) , Lymphocytes (%) (Auto) , Monocytes (%) (Auto) , Eosinophils (%) (Auto) , Basophils (%) (Auto) , Sodium Level 138, Potassium Level 3.5, Chloride Level 93L , Carbon Dioxide Level 25, Anion Gap 20H, Blood Urea Nitrogen 39H, Creatinine 8.0H, Estimat Glomerular Filtration Rate 7.6, Glucose Level 150H, Uric Acid 12.4H, Calcium Level 8.5L, Phosphorus Level 7.0H, Magnesium Level 2.6H, Total Bilirubin 0.4, Gamma Glutamyl Transpeptidase 38, Aspartate Amino Transf (AST/ SGOT) 19, Alanine Aminotransferase (ALT/SGPT) 15, Alkaline Phosphatase 63, Total Creatine Kinase 145, C-Reactive Protein, Quantitative 15.1H, Pro-B-Type Natriuretic Peptide 484H, Total Protein 6.9, Albumin 2.6L, Globulin 4.3, Albumin /Globulin Ratio 0.6L Current Medications Medications (Trade) Dose Ordered Sig/Keila Route PRN Reason Start Time Stop Time Status Last Admin Dose Admin Acetaminophen (Tylenol) 650 mg Q4H PRN ORAL fever 06/22/16 13:00 07/22/16 12:59 Albuterol/ Ipratropium (DuoNeb 0.5-3(2.5)mg/3ml) 3 ml Q4HRT PRN HHN Shortness of Breath 06/22/16 13:00 06/27/16 12:59 06/22/16 21:22 Cefepime HCl/ Dextrose (Maxipime/D5W) 55 ml @ 110 mls/hr Q24H IV 06/22/16 21:00 06/28/16 20:59 06/22/16 21:46 Clonidine HCl (Catapres) 0.1 mg Q4H PRN ORAL BP over 170 syst 06/22/16 13:00 07/22/16 12:59 Heparin Sodium (Porcine) (Heparin 5000 units/ml) 5,000 units EVERY 12 HOURS SUBQ 06/22/16 21:00 07/22/16 20:59 06/23/16 09:15 Itraconazole (Sporanox) 200 mg Q12HR ORAL 06/22/16 21:00 06/28/16 20:59 06/23/16 09:14 Linezolid (Zyvox) 600 mg Q12HR ORAL 06/22/16 21:00 06/27/16 20:59 06/23/16 09:27 Methylprednisolone Sodium Succinate (Solu-MEDROL) 125 mg DAILY IV 06/23/16 09:00 06/27/16 09:01 06/23/16 09:13 Metronidazole (Flagyl) 500 mg Q8HR ORAL 06/22/16 22:00 06/29/16 21:59 06/23/16 06:14 Nitroglycerin (Ntg) 0.4 mg Q5MIN X3 PRN SL Prn Chest Pain 06/22/16 13:00 07/22/16 12:59 Ondansetron HCl (Zofran) 4 mg Q6H PRN IVP Nausea & Vomiting 06/22/16 13:00 07/22/16 12:59 Pantoprazole (Protonix) 40 mg DAILY IVP 06/23/16 09:00 07/23/16 08:59 06/23/16 09:15 Polyethylene Glycol (Miralax) 17 gm DAILYPRN PRN ORAL Constipation 06/22/16 13:00 07/22/16 12:59 Promethazine HCl/ Codeine (Phenergan with Codeine) 5 ml Q4H PRN ORAL For Cough 06/22/16 13:00 07/22/16 12:59 06/23/16 06:16 Sevelamer Carbonate (Renvela) 1,600 mg TIAC ORAL 06/23/16 11:30 07/23/16 11:29 06/23/16 11:48 Temazepam (Restoril) 15 mg HSPRN PRN ORAL Insomnia 06/22/16 21:00 06/29/16 20:59 06/22/16 21:53 SAGAR CHRIS Jun 23, 2016 12:17
--- NOTE | 2016-06-23 15:21 | Cardiac Electrophysiology PN ---
Assessment/Plan Assessment/Plan 1. Tachycardia.Due to sinus tachycardia , due to patient's frequent, bilateral pulmonary process. There is no evidence of atrial fibrillation or any other supraventricular tachycardia. 2. History of hypertension, blood pressure currently is stable off any antihypertensives. 3. History of histoplasmosis. 4. Shortness of breath due to healthcare-associated pneumonia. Cefepime and Linezolid 5. Adverse reaction to antibiotics, unclear whether it was due to vancomycin versus Zosyn. Further evaluation is pending per Dr. Navarrete. 6. Acute renal failure. ? etiology. Had first dialysis yesterday. Next dialysis tomorrow am. HEIDI RN Subjective Subjective Had his second dialysis today.Alert in NAD. at bedside. Objective Last 24 Hour Vital Signs Date Time Temp Pulse Resp B/P Pulse Ox O2 Delivery O2 Flow Rate FiO2 06/23/16 12:00 115 06/23/16 12:00 97.3 93 20 132/80 93 Nasal Cannula 2.0 06/23/16 08:00 96 06/23/16 08:00 97.7 92 24 142/76 94 Nasal Cannula 2.0 06/23/16 07:46 Nasal Cannula 4.0 36 06/23/16 07:45 95 Nasal Cannula 4.0 36 06/23/16 07:15 Nasal Cannula 2.0 06/23/16 07:10 97.2 90 128/68 2.0 06/23/16 04:29 86 06/23/16 04:00 Nasal Cannula 2.0 06/23/16 04:00 97.0 92 20 124/77 97 Nasal Cannula 2.0 06/23/16 03:56 97.0 90 22 127/79 93 Nasal Cannula 4.0 06/23/16 00:00 94 06/22/16 23:32 96.1 99 20 126/60 92 Nasal Cannula 4.0 06/22/16 21:33 83 20 96 Nasal Cannula 4.0 36 06/22/16 21:28 36 06/22/16 21:27 102 16 96 Nasal Cannula 4.0 36 06/22/16 20:00 97.3 97 20 143/81 93 Nasal Cannula 4.0 06/22/16 20:00 97 06/22/16 19:00 Nasal Cannula 4.0 36 06/22/16 19:00 95 Nasal Cannula 4.0 36 06/22/16 17:38 82 20 97 Nasal Cannula 5.0 44 06/22/16 17:37 86 18 91 Nasal Cannula 5.0 44 06/22/16 17:00 94 06/22/16 16:00 98.7 98 22 134/73 98 Nasal Cannula 4.0 Intake and Output 06/22/16 06/23/16 19:00 07:00 Intake Total 910 ml 400 ml Output Total 155 ml 305 ml Balance 755 ml 95 ml Intake Oral 540 ml 400 ml IV Total 300 ml Other 70 ml Output Urine Total 155 ml 305 ml # Bowel Movements 1 Laboratory Tests Test 06/23/16 04:00 06/23/16 04:10 Urine Eosinophils Rare White Blood Count 15.3 K/UL (4.8-10.8) H Red Blood Count 3.87 M/UL (4.70-6.10) L Hemoglobin 11.4 G/DL (14.2-18.0) L Hematocrit 34.6 % (42.0-52.0) L Mean Corpuscular Volume 89 FL (80-99) Mean Corpuscular Hemoglobin 29.6 PG (27.0-31.0) Mean Corpuscular Hemoglobin Concent 33.1 G/DL (32.0-36.0) Red Cell Distribution Width 11.4 % (11.6-14.8) L Platelet Count 397 K/UL (150-450) Mean Platelet Volume 6.9 FL (6.5-10.1) Neutrophils (%) (Auto) % (45.0-75.0) Lymphocytes (%) (Auto) % (20.0-45.0) Monocytes (%) (Auto) % (1.0-10.0) Eosinophils (%) (Auto) % (0.0-3.0) Basophils (%) (Auto) % (0.0-2.0) Sodium Level 138 mEQ/L (135-145) Potassium Level 3.5 mEQ/L (3.4-4.9) Chloride Level 93 mEQ/L (98-107) L Carbon Dioxide Level 25 mEQ/L (20-30) Anion Gap 20 (5-15) H Blood Urea Nitrogen 39 mg/dL (7-23) H Creatinine 8.0 mg/dL (0.7-1.2) H Estimat Glomerular Filtration Rate 7.6 mL/min (>60) Glucose Level 150 mg/dL (74-106) H Uric Acid 12.4 mg/dL (3.0-7.5) H Calcium Level 8.5 mg/dL (8.6-10.2) L Phosphorus Level 7.0 mg/dL (2.5-4.8) H Magnesium Level 2.6 mg/dL (1.7-2.5) H Total Bilirubin 0.4 mg/dL (0.0-1.2) Gamma Glutamyl Transpeptidase 38 U/L (8-61) Aspartate Amino Transf (AST/SGOT) 19 U/L (5-40) Alanine Aminotransferase (ALT/SGPT) 15 U/L (3-41) Alkaline Phosphatase 63 U/L (40-129) Total Creatine Kinase 145 U/L (38-174) C-Reactive Protein, Quantitative 15.1 mg/dL (< 0.5) H Pro-B-Type Natriuretic Peptide 484 pg/mL (0-125) H Total Protein 6.9 g/dL (6.6-8.7) Albumin 2.6 g/dL (3.5-5.2) L Globulin 4.3 g/dL Albumin/Globulin Ratio 0.6 (1.0-2.7) L Objective 1. Sinus tachycardia due to sepsis and renal failure. No atrial fibrillation or SVT. 2. History of hypertension, blood pressure currently is stable off any antihypertensives. 3. History of histoplasmosis. 4. Shortness of breath due to healthcare-associated pneumonia. On empiric Zyvox. 5. Adverse reaction to antibiotics, unclear whether it was due to vancomycin versus Zosyn but could be due to red man syndrome after rapid injection of vancomycin per Dr. Navarrete. 6. Acute renal failyure. Now on HD today. JOHN GARCÍA RN Jun 23, 2016 15:21
--- NOTE | 2016-06-23 17:21 | Infectious Diseases Prog Note ---
Assessment/Plan Problems: (1) Lung abscess Assessment & Plan: continue zyvox, cefepime and flagyl for anaerobic coverage, will treat for 4 weeks , recommend repeat CT scan of the chest in 4 weeks for follow up, pulmonary is following, sputum culture showed normal keo so far. (2) HCAP (healthcare-associated pneumonia) Assessment & Plan: improving, continue zyvox , and cefepime empirically , await sputum and blood culture, had allergic reaction to either vancomycin or zosyn, most likely vancomycin with red man syndrome, will avoid for now. (3) Vomiting Assessment & Plan: due to pneumonia, improving, continue supportive care , monitor labs, continue hydration (4) Adverse reaction to antibiotic Assessment & Plan: unclear whether due to vancomycin VS zosyn , most likely vancomycin since it happened fast after infusion, suspect red man syndrome, will check blood eosinophils counts in blood. avoid both classes of antibiotics for now, ok to use cephalosporins since he received it last admission with no reaction (5) Histoplasmosis pneumonia Assessment & Plan: continue itraconazole, monitor LFT (6) LISET (acute kidney injury) Assessment & Plan: had HD cath placed by renal, and started on HD, avoid nephrotoxic meds. Subjective Constitutional: Reports: anorexia, fatigue Respiratory: Reports: productive cough, shortness of breath Allergies: Coded Allergies: PIPERACILLIN (Verified Adverse Reaction, Intermediate, 06/20/16) pt developed diffuse macular rash per ER MD notes. unclear if due to vanco or zosyn TAZOBACTAM (Verified Adverse Reaction, Intermediate, 06/20/16) pt developed diffuse macular rash per ER MD notes. unclear if due to vanco or zosyn VANCOMYCIN (Verified Adverse Reaction, Intermediate, 06/20/16) pt developed diffuse macular rash per ER MD notes. unclear if due to vanco or zosyn All Systems: reviewed and negative except above Subjective he feels better today, still have productive cough with yellowish phlegm, less fever, no chills, no vomiting. no skin rash or hives, tolerated current antibiotics well. Objective Vital Signs Last 24 Hour Vital Signs Date Time Temp Pulse Resp B/P Pulse Ox O2 Delivery O2 Flow Rate FiO2 06/23/16 16:00 97.0 100 20 124/60 93 Nasal Cannula 4.0 100 06/23/16 12:00 115 06/23/16 12:00 97.3 93 20 132/80 93 Nasal Cannula 2.0 06/23/16 08:00 96 06/23/16 08:00 97.7 92 24 142/76 94 Nasal Cannula 2.0 06/23/16 07:46 Nasal Cannula 4.0 36 06/23/16 07:45 95 Nasal Cannula 4.0 36 06/23/16 07:15 Nasal Cannula 2.0 06/23/16 07:10 97.2 90 128/68 2.0 06/23/16 04:29 86 06/23/16 04:00 Nasal Cannula 2.0 06/23/16 04:00 97.0 92 20 124/77 97 Nasal Cannula 2.0 06/23/16 03:56 97.0 90 22 127/79 93 Nasal Cannula 4.0 06/23/16 00:00 94 06/22/16 23:32 96.1 99 20 126/60 92 Nasal Cannula 4.0 06/22/16 21:33 83 20 96 Nasal Cannula 4.0 36 06/22/16 21:28 36 06/22/16 21:27 102 16 96 Nasal Cannula 4.0 36 06/22/16 20:00 97.3 97 20 143/81 93 Nasal Cannula 4.0 06/22/16 20:00 97 06/22/16 19:00 Nasal Cannula 4.0 36 06/22/16 19:00 95 Nasal Cannula 4.0 36 06/22/16 17:38 82 20 97 Nasal Cannula 5.0 44 06/22/16 17:37 86 18 91 Nasal Cannula 5.0 44 Height (Feet): 5 Height (Inches): 5.00 Weight (Pounds): 170 General Appearance: WD/WN, no acute distress HEENT: normocephalic, atraumatic, anicteric, mucous membranes moist Respiratory/Chest: chest wall non-tender, normal breath sounds, no respiratory distress, no accessory muscle use, decreased breath sounds, crackles/rales, expiratory wheezing Cardiovascular: normal peripheral pulses, normal rate, regular rhythm, no gallop/murmur, no JVD Abdomen: normal bowel sounds, soft, non tender, no organomegaly, non distended , no mass, no scars Extremities: no cyanosis, no clubbing Skin: no rash, no lesions, no ulcers Laboratory Tests Test 06/23/16 04:00 06/23/16 04:10 Urine Eosinophils Rare White Blood Count 15.3 K/UL (4.8-10.8) H Red Blood Count 3.87 M/UL (4.70-6.10) L Hemoglobin 11.4 G/DL (14.2-18.0) L Hematocrit 34.6 % (42.0-52.0) L Mean Corpuscular Volume 89 FL (80-99) Mean Corpuscular Hemoglobin 29.6 PG (27.0-31.0) Mean Corpuscular Hemoglobin Concent 33.1 G/DL (32.0-36.0) Red Cell Distribution Width 11.4 % (11.6-14.8) L Platelet Count 397 K/UL (150-450) Mean Platelet Volume 6.9 FL (6.5-10.1) Neutrophils (%) (Auto) % (45.0-75.0) Lymphocytes (%) (Auto) % (20.0-45.0) Monocytes (%) (Auto) % (1.0-10.0) Eosinophils (%) (Auto) % (0.0-3.0) Basophils (%) (Auto) % (0.0-2.0) Sodium Level 138 mEQ/L (135-145) Potassium Level 3.5 mEQ/L (3.4-4.9) Chloride Level 93 mEQ/L (98-107) L Carbon Dioxide Level 25 mEQ/L (20-30) Anion Gap 20 (5-15) H Blood Urea Nitrogen 39 mg/dL (7-23) H Creatinine 8.0 mg/dL (0.7-1.2) H Estimat Glomerular Filtration Rate 7.6 mL/min (>60) Glucose Level 150 mg/dL (74-106) H Uric Acid 12.4 mg/dL (3.0-7.5) H Calcium Level 8.5 mg/dL (8.6-10.2) L Phosphorus Level 7.0 mg/dL (2.5-4.8) H Magnesium Level 2.6 mg/dL (1.7-2.5) H Total Bilirubin 0.4 mg/dL (0.0-1.2) Gamma Glutamyl Transpeptidase 38 U/L (8-61) Aspartate Amino Transf (AST/SGOT) 19 U/L (5-40) Alanine Aminotransferase (ALT/SGPT) 15 U/L (3-41) Alkaline Phosphatase 63 U/L (40-129) Total Creatine Kinase 145 U/L (38-174) C-Reactive Protein, Quantitative 15.1 mg/dL (< 0.5) H Pro-B-Type Natriuretic Peptide 484 pg/mL (0-125) H Total Protein 6.9 g/dL (6.6-8.7) Albumin 2.6 g/dL (3.5-5.2) L Globulin 4.3 g/dL Albumin/Globulin Ratio 0.6 (1.0-2.7) L Current Medications Medications (Trade) Dose Ordered Sig/Keila Route PRN Reason Start Time Stop Time Status Last Admin Dose Admin Acetaminophen (Tylenol) 650 mg Q4H PRN ORAL fever 06/22/16 13:00 07/22/16 12:59 Albuterol/ Ipratropium (DuoNeb 0.5-3(2.5)mg/3ml) 3 ml Q4HRT PRN HHN Shortness of Breath 06/22/16 13:00 06/27/16 12:59 06/22/16 21:22 Cefepime HCl/ Dextrose (Maxipime/D5W) 55 ml @ 110 mls/hr Q24H IV 06/22/16 21:00 06/28/16 20:59 06/22/16 21:46 Clonidine HCl (Catapres) 0.1 mg Q4H PRN ORAL BP over 170 syst 06/22/16 13:00 07/22/16 12:59 Heparin Sodium (Porcine) (Heparin 5000 units/ml) 5,000 units EVERY 12 HOURS SUBQ 06/22/16 21:00 07/22/16 20:59 06/23/16 09:15 Itraconazole (Sporanox) 200 mg Q12HR ORAL 06/22/16 21:00 06/28/16 20:59 06/23/16 09:14 Linezolid (Zyvox) 600 mg Q12HR ORAL 06/22/16 21:00 06/27/16 20:59 06/23/16 09:27 Methylprednisolone Sodium Succinate (Solu-MEDROL) 125 mg DAILY IV 06/23/16 09:00 06/27/16 09:01 06/23/16 09:13 Metronidazole (Flagyl) 500 mg Q8HR ORAL 06/22/16 22:00 06/29/16 21:59 06/23/16 13:27 Nitroglycerin (Ntg) 0.4 mg Q5MIN X3 PRN SL Prn Chest Pain 06/22/16 13:00 07/22/16 12:59 Ondansetron HCl (Zofran) 4 mg Q6H PRN IVP Nausea & Vomiting 06/22/16 13:00 07/22/16 12:59 Pantoprazole (Protonix) 40 mg DAILY IVP 06/23/16 09:00 07/23/16 08:59 06/23/16 09:15 Polyethylene Glycol (Miralax) 17 gm DAILYPRN PRN ORAL Constipation 06/22/16 13:00 07/22/16 12:59 Promethazine HCl/ Codeine (Phenergan with Codeine) 5 ml Q4H PRN ORAL For Cough 06/22/16 13:00 07/22/16 12:59 06/23/16 06:16 Sevelamer Carbonate (Renvela) 1,600 mg TIAC ORAL 06/23/16 11:30 07/23/16 11:29 06/23/16 11:48 Temazepam (Restoril) 15 mg HSPRN PRN ORAL Insomnia 06/22/16 21:00 06/29/16 20:59 06/22/16 21:53 Erin Navarrete M.D. Jun 23, 2016 17:21
[2016-06-23] MEDS ORDERED: Nitroglycerin Subl 0.4mg tab (Bottle Of 25) SL PRN (18:15)
[2016-06-23] MEDS ORDERED: DuoNeb 0.5-3(2.5)mg/3ml neb HHN PRN (19:00)
[2016-06-23] MEDS ORDERED: Cefepime HCl 1 GM in D5W 55 ML IV SCH (21:00)
[2016-06-23] MEDS: Cefepime HCl 500 MG in D5W 55 ML IV SCH (21:00)
--- NOTE | 2016-06-23 23:56 | General Progress Note ---
Assessment/Plan Assessment/Plan ASSESSMENT: 1. Leukocytosis - getting worse, due to underlying Histoplasmosis pneumonia 2. Anemia secondary to chronic disease. 3. Decreased hemoglobin and hematocrit, rule out gastrointestinal bleed. 4. Nausea and vomiting potentially secondary to severe dehydration. 5. Community-acquired pneumonia on chest x-ray, is on linezolid and cefepime. 6. Eosinophilia history that is resolved. 7. Acute kidney injury--worsening RECOMMENDATIONS: 1. Monitor counts and maintain hemoglobin >7. 2. Monitor wbc counts 3. Antibiotics per ID service. 4. Anemia w/u reviewed 5. CAT scan of the chest. 6. Labs also reviewed 6. Repeat smear reviewed 7. Review viral studies 8. DVT prophylaxis with heparin sq 9. GI prophylaxis as needed. 10. staff Thank you, Gerry Winston MD Subjective Constitutional: Reports: no symptoms HEENT: Reports: no symptoms Cardiovascular: Reports: no symptoms Respiratory: Reports: cough Gastrointestinal/Abdominal: Reports: no symptoms Genitourinary: Reports: no symptoms Neurologic/Psychiatric: Reports: no symptoms Endocrine: Reports: no symptoms Hematologic/Lymphatic: Reports: anemia Allergies: Coded Allergies: PIPERACILLIN (Verified Adverse Reaction, Intermediate, 06/20/16) pt developed diffuse macular rash per ER MD notes. unclear if due to vanco or zosyn TAZOBACTAM (Verified Adverse Reaction, Intermediate, 06/20/16) pt developed diffuse macular rash per ER MD notes. unclear if due to vanco or zosyn VANCOMYCIN (Verified Adverse Reaction, Intermediate, 06/20/16) pt developed diffuse macular rash per ER MD notes. unclear if due to vanco or zosyn Subjective stable, h.h unchanged, is getting HD Objective Last 24 Hour Vital Signs Date Time Temp Pulse Resp B/P Pulse Ox O2 Delivery O2 Flow Rate FiO2 06/23/16 19:12 95 Nasal Cannula 2.0 28 06/23/16 19:12 Nasal Cannula 2.0 28 06/23/16 16:00 97.0 100 20 124/60 93 Nasal Cannula 4.0 100 06/23/16 12:00 115 06/23/16 12:00 97.3 93 20 132/80 93 Nasal Cannula 2.0 06/23/16 08:00 96 06/23/16 08:00 97.7 92 24 142/76 94 Nasal Cannula 2.0 Intake and Output 06/23/16 06/23/16 11:00 23:00 Intake Total 600 ml 400 ml Output Total 1230 ml Balance -630 ml 400 ml Intake Oral 600 ml 400 ml Output Urine Total 130 ml Hemodialysis UF 1100 ml # Voids 1 Laboratory Tests 06/23/16 04:00: Urine Eosinophils Rare 06/23/16 04:10: White Blood Count 15.3H, Red Blood Count 3.87L, Hemoglobin 11.4L, Hematocrit 34.6L, Mean Corpuscular Volume 89, Mean Corpuscular Hemoglobin 29.6, Mean Corpuscular Hemoglobin Concent 33.1, Red Cell Distribution Width 11.4L, Platelet Count 397, Mean Platelet Volume 6.9, Neutrophils (%) (Auto) , Lymphocytes (%) (Auto) , Monocytes (%) (Auto) , Eosinophils (%) (Auto) , Basophils (%) (Auto) , Sodium Level 138, Potassium Level 3.5, Chloride Level 93L , Carbon Dioxide Level 25, Anion Gap 20H, Blood Urea Nitrogen 39H, Creatinine 8.0H, Estimat Glomerular Filtration Rate 7.6, Glucose Level 150H, Uric Acid 12.4H, Calcium Level 8.5L, Phosphorus Level 7.0H, Magnesium Level 2.6H, Total Bilirubin 0.4, Gamma Glutamyl Transpeptidase 38, Aspartate Amino Transf (AST/ SGOT) 19, Alanine Aminotransferase (ALT/SGPT) 15, Alkaline Phosphatase 63, Total Creatine Kinase 145, C-Reactive Protein, Quantitative 15.1H, Pro-B-Type Natriuretic Peptide 484H, Total Protein 6.9, Albumin 2.6L, Globulin 4.3, Albumin /Globulin Ratio 0.6L 06/23/16 21:30: Urine Eosinophils [Pending] Height (Feet): 5 Height (Inches): 5.00 Weight (Pounds): 170 General Appearance: no apparent distress EENT: PERRL/EOMI Neck: supple Cardiovascular: normal rate Respiratory/Chest: no respiratory distress Abdomen: soft Edema: 1+ Leg (L), 1+ Leg (R) Gerry Winston Jun 23, 2016 23:56
[2016-06-24] VITALS: BP 141/62
[2016-06-24 04:00] VITALS: BP 133/80
[2016-06-24] MEDS: metroNIDAZOLE 500mg tab ORAL SCH ×3 (05:42→22:39)
[2016-06-24 07:10] LABS: MEAN CORPUSCULAR HEMOGLOBIN 29.5 PG (27.0-31.0); MEAN CORPUSCULAR HGB CONC 34.1 G/DL (32.0-36.0); MEAN CORPUSCULAR VOLUME 86 FL (80-99); MEAN PLATELET VOLUME 7.3 FL (6.5-10.1); PLATELET COUNT 476 K/UL (150-450); RED BLOOD COUNT 3.96 M/UL (4.70-6.10); RED CELL DISTRIBUTION WIDTH 11.4 % (11.6-14.8); WHITE BLOOD COUNT 19.3 K/UL (4.8-10.8)
[2016-06-24 07:35] LABS: ALBUMIN/GLOBULIN RATIO 0.8 (1.0-2.7); CALCIUM 8.6 mg/dL (8.6-10.2); CREATININE 6.3 mg/dL (0.7-1.2); CRP QUANT 6.2 mg/dL (< 0.5); GLOMERULAR FILTRATION RATE 10.1 mL/min (>60); MAGNESIUM 2.5 mg/dL (1.7-2.5); PHOSPHORUS 4.6 mg/dL (2.5-4.8); POTASSIUM 3.5 mEQ/L (3.4-4.9); TOTAL PROTEIN 6.7 g/dL (6.6-8.7); URIC ACID 10.6 mg/dL (3.0-7.5)
--- NOTE | 2016-06-24 07:57 | Pulmonology Progress Note ---
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 Thoracic surgery Not amenable to percutaneous catheter drainage. New multifocal parenchymal airspace opacities suspicious for disseminated pneumonia CXR 06/23- suspected infiltrate versus atelectasis at the right lung base. sputum cx, blood cx, influenza screen - all negative abx and Itraconazole ID follows antitussive prn renal US negative, no hydro nephro follows urine + eosinophils, nephro favoring allergic cause of ARF over infectious started on steroids x 5 days ( per nephro) HD as per nephro monitor renal parameters , lytes DVT, GI prophylaxis case discussed and evaluated by supervising physician Subjective Allergies: Coded Allergies: PIPERACILLIN (Verified Adverse Reaction, Intermediate, 06/20/16) pt developed diffuse macular rash per ER MD notes. unclear if due to vanco or zosyn TAZOBACTAM (Verified Adverse Reaction, Intermediate, 06/20/16) pt developed diffuse macular rash per ER MD notes. unclear if due to vanco or zosyn VANCOMYCIN (Verified Adverse Reaction, Intermediate, 06/20/16) pt developed diffuse macular rash per ER MD notes. unclear if due to vanco or zosyn Subjective on [facility] floor reports feeling a bit better no respiratory distress on O2 via NV, sat stable; denies SOB, admits to cough and chest pain with deep breathing afebrile, leukocytosis with trend up today ( on high dose of Solumedrol) Objective Last 24 Hour Vital Signs Date Time Temp Pulse Resp B/P Pulse Ox O2 Delivery O2 Flow Rate FiO2 06/24/16 04:00 97.2 90 19 133/80 91 Nasal Cannula 2.0 06/24/16 00:00 97.7 91 19 141/62 93 Nasal Cannula 2.0 06/23/16 20:00 97.5 94 18 127/66 95 Nasal Cannula 2.0 06/23/16 19:12 95 Nasal Cannula 2.0 28 06/23/16 19:12 Nasal Cannula 2.0 28 06/23/16 16:00 97.0 100 20 124/60 93 Nasal Cannula 4.0 100 06/23/16 12:00 115 06/23/16 12:00 97.3 93 20 132/80 93 Nasal Cannula 2.0 06/23/16 08:00 96 06/23/16 08:00 97.7 92 24 142/76 94 Nasal Cannula 2.0 Intake and Output 06/23/16 06/24/16 19:00 07:00 Intake Total 600 ml 715 ml Output Total 1100 ml 900 ml Balance -500 ml -185 ml Intake Oral 600 ml 660 ml IV Total 55 ml Output Urine Total 900 ml Hemodialysis UF 1100 ml # Voids 1 General Appearance: WD/WN, no acute distress HEENT: normocephalic, atraumatic, anicteric, mucous membranes moist, other - O2 via NC Respiratory/Chest: lungs clear - with decreased BS on the right , no respiratory distress, no accessory muscle use, other - RIJ HD catheter, intact Cardiovascular: normal rate, regular rhythm Abdomen: soft, non tender, non distended Genitourinary: normal external genitalia Extremities: no edema Neurologic/Psychiatric: no motor/sensory deficits, alert, oriented x 3, responsive Musculoskeletal: normal muscle bulk Laboratory Tests 06/24/16 04:00: Urine Eosinophils [Pending] 06/24/16 05:10: White Blood Count 19.3H, Red Blood Count 3.96L, Hemoglobin 11.7L, Hematocrit 34.1L, Mean Corpuscular Volume 86, Mean Corpuscular Hemoglobin 29.5, Mean Corpuscular Hemoglobin Concent 34.1, Red Cell Distribution Width 11.4L, Platelet Count 476H, Mean Platelet Volume 7.3, Neutrophils (%) (Auto) , Lymphocytes (%) (Auto) , Monocytes (%) (Auto) , Eosinophils (%) (Auto) , Basophils (%) (Auto) , Neutrophils % (Manual) [Pending], Lymphocytes % (Manual) [Pending], Platelet Estimate [Pending], Platelet Morphology [Pending], Sodium Level 140, Potassium Level 3.5, Chloride Level 94L, Carbon Dioxide Level 28, Anion Gap 18H, Blood Urea Nitrogen 56H, Creatinine 6.3H, Estimat Glomerular Filtration Rate 10.1, Glucose Level 150H, Uric Acid 10.6H, Calcium Level 8.6, Phosphorus Level 4.6, Magnesium Level 2.5, Total Bilirubin 0.3, Aspartate Amino Transf (AST/SGOT) 19, Alanine Aminotransferase (ALT/SGPT) 15, Alkaline Phosphatase 84, C-Reactive Protein, Quantitative 6.2H, Pro-B-Type Natriuretic Peptide [Pending], Total Protein 6.7, Albumin 3.0L, Globulin 3.7, Albumin/ Globulin Ratio 0.8L Current Medications Medications (Trade) Dose Ordered Sig/Keila Route PRN Reason Start Time Stop Time Status Last Admin Dose Admin Acetaminophen (Tylenol) 650 mg Q4H PRN ORAL fever 06/23/16 21:00 07/23/16 20:59 Albuterol/ Ipratropium (DuoNeb 0.5-3(2.5)mg/3ml) 3 ml Q4HRT PRN HHN Shortness of Breath 06/23/16 19:00 06/28/16 18:59 Cefepime HCl/ Dextrose (Maxipime/D5W) 55 ml @ 110 mls/hr Q24H IV 06/23/16 21:00 06/30/16 20:59 06/23/16 21:00 Clonidine HCl (Catapres) 0.1 mg Q4H PRN ORAL BP over 170 syst 06/23/16 21:00 07/23/16 20:59 Heparin Sodium (Porcine) (Heparin 5000 units/ml) 5,000 units EVERY 12 HOURS SUBQ 06/23/16 21:00 07/23/16 20:59 06/23/16 20:42 Itraconazole (Sporanox) 200 mg Q12HR ORAL 06/23/16 21:00 06/30/16 20:59 06/23/16 22:24 Linezolid (Zyvox) 600 mg Q12HR ORAL 06/23/16 21:00 06/28/16 20:59 06/23/16 22:25 Methylprednisolone Sodium Succinate (Solu-MEDROL) 125 mg DAILY IV 06/24/16 09:00 06/27/16 09:01 Metronidazole (Flagyl) 500 mg Q8HR ORAL 06/23/16 22:00 06/30/16 21:59 06/24/16 05:42 Nitroglycerin (Ntg) 0.4 mg Q5MIN X3 PRN SL Prn Chest Pain 06/23/16 18:15 07/23/16 18:14 Ondansetron HCl (Zofran) 4 mg Q6H PRN IVP Nausea & Vomiting 06/23/16 19:00 07/23/16 18:59 Pantoprazole (Protonix) 40 mg DAILY IVP 06/24/16 09:00 07/24/16 08:59 Polyethylene Glycol (Miralax) 17 gm DAILYPRN PRN ORAL Constipation 06/24/16 13:00 07/24/16 12:59 Promethazine HCl/ Codeine (Phenergan with Codeine) 5 ml Q4H PRN ORAL For Cough 06/23/16 21:00 07/23/16 20:59 06/23/16 23:46 Sevelamer Carbonate (Renvela) 1,600 mg TIAC ORAL 06/24/16 06:30 07/24/16 06:29 06/24/16 05:42 Temazepam 15 mg 15 mg HSPRN PRN ORAL Insomnia 06/23/16 21:00 06/30/16 20:59 06/23/16 22:20 Garth ([facility])Yanci NP Jun 24, 2016 07:57
[2016-06-24 08:00] VITALS: BP 144/97
[2016-06-24] MEDS ORDERED: Solu-MEDROL 125mg Inj IV SCH (09:00)
[2016-06-24] MEDS ORDERED: Pantoprazole Inj IVP SCH (09:00)
[2016-06-24] MEDS: Promethazine/Codeine 5ml UD ORAL PRN ×3 (09:12→22:49)
[2016-06-24] MEDS: Heparin 5000 units/ml inj SUBQ SCH ×2 (09:21→22:42)
--- NOTE | 2016-06-24 09:21 | General Progress Note ---
Assessment/Plan Assessment/Plan ASSESSMENT: 1. Leukocytosis - getting worse, due to underlying Histoplasmosis pneumonia 2. Anemia secondary to chronic disease. 3. Decreased hemoglobin and hematocrit, rule out gastrointestinal bleed. 4. Nausea and vomiting potentially secondary to severe dehydration. 5. Community-acquired pneumonia on chest x-ray, is on linezolid and cefepime. 6. Eosinophilia history that is resolved. 7. Acute kidney injury--worsening RECOMMENDATIONS: 1. Monitor counts and maintain hgb >7. 2. Monitor wbc counts 3. Antibiotics per ID service. 4. Anemia w/u reviewed 5. Labs reviewed 6. Repeat smear reviewed 7. Review viral studies 8. DVT prophylaxis with heparin sq 9. GI prophylaxis as needed. 10. staff Thank you, Gerry Winston MD Subjective Constitutional: Reports: no symptoms HEENT: Reports: no symptoms Cardiovascular: Reports: no symptoms Respiratory: Reports: no symptoms Gastrointestinal/Abdominal: Reports: poor appetite Genitourinary: Reports: no symptoms Neurologic/Psychiatric: Reports: no symptoms Endocrine: Reports: no symptoms Hematologic/Lymphatic: Reports: anemia Allergies: Coded Allergies: PIPERACILLIN (Verified Adverse Reaction, Intermediate, 06/20/16) pt developed diffuse macular rash per ER MD notes. unclear if due to vanco or zosyn TAZOBACTAM (Verified Adverse Reaction, Intermediate, 06/20/16) pt developed diffuse macular rash per ER MD notes. unclear if due to vanco or zosyn VANCOMYCIN (Verified Adverse Reaction, Intermediate, 06/20/16) pt developed diffuse macular rash per ER MD notes. unclear if due to vanco or zosyn Subjective stable, no bleeding, feeling tired overnight Objective Last 24 Hour Vital Signs Date Time Temp Pulse Resp B/P Pulse Ox O2 Delivery O2 Flow Rate FiO2 06/24/16 08:00 97.3 86 19 144/97 94 Nasal Cannula 2.0 06/24/16 04:00 97.2 90 19 133/80 91 Nasal Cannula 2.0 06/24/16 00:00 97.7 91 19 141/62 93 Nasal Cannula 2.0 06/23/16 20:00 97.5 94 18 127/66 95 Nasal Cannula 2.0 06/23/16 19:12 95 Nasal Cannula 2.0 28 06/23/16 19:12 Nasal Cannula 2.0 28 06/23/16 16:00 97.0 100 20 124/60 93 Nasal Cannula 4.0 100 06/23/16 12:00 115 06/23/16 12:00 97.3 93 20 132/80 93 Nasal Cannula 2.0 Intake and Output 06/23/16 06/24/16 19:00 07:00 Intake Total 600 ml 715 ml Output Total 1100 ml 900 ml Balance -500 ml -185 ml Intake Oral 600 ml 660 ml IV Total 55 ml Output Urine Total 900 ml Hemodialysis UF 1100 ml # Voids 1 Laboratory Tests 06/24/16 04:00: Urine Eosinophils [Pending] 06/24/16 05:10: White Blood Count 19.3H, Red Blood Count 3.96L, Hemoglobin 11.7L, Hematocrit 34.1L, Mean Corpuscular Volume 86, Mean Corpuscular Hemoglobin 29.5, Mean Corpuscular Hemoglobin Concent 34.1, Red Cell Distribution Width 11.4L, Platelet Count 476H, Mean Platelet Volume 7.3, Neutrophils (%) (Auto) , Lymphocytes (%) (Auto) , Monocytes (%) (Auto) , Eosinophils (%) (Auto) , Basophils (%) (Auto) , Neutrophils % (Manual) [Pending], Lymphocytes % (Manual) [Pending], Platelet Estimate [Pending], Platelet Morphology [Pending], Sodium Level 140, Potassium Level 3.5, Chloride Level 94L, Carbon Dioxide Level 28, Anion Gap 18H, Blood Urea Nitrogen 56H, Creatinine 6.3H, Estimat Glomerular Filtration Rate 10.1, Glucose Level 150H, Uric Acid 10.6H, Calcium Level 8.6, Phosphorus Level 4.6, Magnesium Level 2.5, Total Bilirubin 0.3, Aspartate Amino Transf (AST/SGOT) 19, Alanine Aminotransferase (ALT/SGPT) 15, Alkaline Phosphatase 84, C-Reactive Protein, Quantitative 6.2H, Pro-B-Type Natriuretic Peptide 537H, Total Protein 6.7, Albumin 3.0L, Globulin 3.7, Albumin/Globulin Ratio 0.8L Height (Feet): 5 Height (Inches): 5.00 Weight (Pounds): 170 General Appearance: no apparent distress EENT: TMs normal Neck: supple Cardiovascular: regular rhythm Respiratory/Chest: normal breath sounds Abdomen: soft Extremities: non-tender Edema: 1+ Leg (L), 1+ Leg (R) Edema: trace edema Neurologic: alert Skin: warm/dry Gerry Winston Jun 24, 2016 09:21
[2016-06-24] MEDS ORDERED: Cefepime HCl 1 GM in D5W 55 ML IVPB SCH (09:45)
[2016-06-24 10:58] LABS: BAND NEUTROPHILS % (MANUAL) 0 % (0-8); BASOPHILS % (MANUAL) 0 % (0-2); EOSINOPHILS % (MANUAL) 0 % (0-3); HYPOCHROMASIA 1+; LYMPHOCYTES % (MANUAL) 6 % (20-45); NEUTROPHILS % (MANUAL) 87 % (45-75); PLATELET ESTIMATE ADEQUATE; PLATELET MORPHOLOGY NORMAL; TOTAL CELLS COUNTED 100
--- NOTE | 2016-06-24 11:24 | General Progress Note ---
Assessment/Plan Problem List: (1) Histoplasmosis pneumonia ICD Codes: B39.2 - Pulmonary histoplasmosis capsulati, unspecified SNOMED: 182266824 (2) Vomiting ICD Codes: R11.10 - Vomiting, unspecified SNOMED: 697547931 (3) Adverse reaction to antibiotic ICD Codes: T36.95XA - Adverse effect of unspecified systemic antibiotic, initial encounter SNOMED: 513780034, 034618590 Qualifiers: Qualified Codes: T36.95XA - Adverse effect of unspecified systemic antibiotic, initial encounter (4) Cavitary lung disease ICD Codes: J98.4 - Other disorders of lung SNOMED: 51169237 (5) Pneumonia ICD Codes: J18.9 - Pneumonia, unspecified organism SNOMED: 932265071 (6) HTN (hypertension) ICD Codes: I10 - Essential (primary) hypertension SNOMED: 20460987 Qualifiers: Qualified Codes: I10 - Essential (primary) hypertension (7) Hyperlipidemia, mixed ICD Codes: E78.2 - Mixed hyperlipidemia SNOMED: 537672926 (8) Pleurisy ICD Codes: R09.1 - Pleurisy SNOMED: 839233256 Status: progressing Assessment/Plan pna no change drug reaction? arf atn not improving Subjective ROS Limited/Unobtainable: Yes Constitutional: Reports: no symptoms Allergies: Coded Allergies: PIPERACILLIN (Verified Adverse Reaction, Intermediate, 06/20/16) pt developed diffuse macular rash per ER MD notes. unclear if due to vanco or zosyn TAZOBACTAM (Verified Adverse Reaction, Intermediate, 06/20/16) pt developed diffuse macular rash per ER MD notes. unclear if due to vanco or zosyn VANCOMYCIN (Verified Adverse Reaction, Intermediate, 06/20/16) pt developed diffuse macular rash per ER MD notes. unclear if due to vanco or zosyn Objective Last 24 Hour Vital Signs Date Time Temp Pulse Resp B/P Pulse Ox O2 Delivery O2 Flow Rate FiO2 06/24/16 08:00 97.3 86 19 144/97 94 Nasal Cannula 2.0 06/24/16 04:00 97.2 90 19 133/80 91 Nasal Cannula 2.0 06/24/16 00:00 97.7 91 19 141/62 93 Nasal Cannula 2.0 06/23/16 20:00 97.5 94 18 127/66 95 Nasal Cannula 2.0 06/23/16 19:12 95 Nasal Cannula 2.0 28 06/23/16 19:12 Nasal Cannula 2.0 28 06/23/16 16:00 97.0 100 20 124/60 93 Nasal Cannula 4.0 100 06/23/16 12:00 115 06/23/16 12:00 97.3 93 20 132/80 93 Nasal Cannula 2.0 Intake and Output 06/23/16 06/24/16 19:00 07:00 Intake Total 600 ml 715 ml Output Total 1100 ml 900 ml Balance -500 ml -185 ml Intake Oral 600 ml 660 ml IV Total 55 ml Output Urine Total 900 ml Hemodialysis UF 1100 ml # Voids 1 Laboratory Tests 06/24/16 04:00: Urine Eosinophils None seen 06/24/16 05:10: White Blood Count 19.3H, Red Blood Count 3.96L, Hemoglobin 11.7L, Hematocrit 34.1L, Mean Corpuscular Volume 86, Mean Corpuscular Hemoglobin 29.5, Mean Corpuscular Hemoglobin Concent 34.1, Red Cell Distribution Width 11.4L, Platelet Count 476H, Mean Platelet Volume 7.3, Neutrophils (%) (Auto) , Lymphocytes (%) (Auto) , Monocytes (%) (Auto) , Eosinophils (%) (Auto) , Basophils (%) (Auto) , Differential Total Cells Counted 100, Neutrophils % ( Manual) 87H, Lymphocytes % (Manual) 6L, Monocytes % (Manual) 7, Eosinophils % ( Manual) 0, Basophils % (Manual) 0, Band Neutrophils 0, Platelet Estimate Adequate, Platelet Morphology Normal, Hypochromasia 1+, Sodium Level 140, Potassium Level 3.5, Chloride Level 94L, Carbon Dioxide Level 28, Anion Gap 18H , Blood Urea Nitrogen 56H, Creatinine 6.3H, Estimat Glomerular Filtration Rate 10.1, Glucose Level 150H, Uric Acid 10.6H, Calcium Level 8.6, Phosphorus Level 4.6, Magnesium Level 2.5, Total Bilirubin 0.3, Aspartate Amino Transf (AST/SGOT ) 19, Alanine Aminotransferase (ALT/SGPT) 15, Alkaline Phosphatase 84, C- Reactive Protein, Quantitative 6.2H, Pro-B-Type Natriuretic Peptide 537H, Total Protein 6.7, Albumin 3.0L, Globulin 3.7, Albumin/Globulin Ratio 0.8L, Hepatitis A IgM Antibody [Pending], Hepatitis B Surface Antigen [Pending], Hepatitis B Core IgM Antibody [Pending], Hepatitis C Antibody [Pending] Height (Feet): 5 Height (Inches): 5.00 Weight (Pounds): 170 EENT: PERRL/EOMI Neck: supple Cardiovascular: normal peripheral pulses Respiratory/Chest: lungs clear Abdomen: soft Jesse Dean MD Jun 24, 2016 11:24
[2016-06-24 12:00] VITALS: BP 141/91
[2016-06-24] MEDS ORDERED: Miralax 17gm pkt ORAL PRN (13:00)
[2016-06-24 16:00] VITALS: BP 126/55
--- NOTE | 2016-06-24 16:11 | General Progress Note ---
Assessment/Plan Status: unchanged Assessment/Plan Status: Acute renal failure ( Allergic vs Sepsis) Urine positive for Eosinophils leading to Allergic etiology Other: 1) Lung abscess (2) Pneumonia (3) HTN (hypertension) (4) Adverse reaction to antibiotic (5) Pleurisy (6) HCAP (healthcare-associated pneumonia) Plan: HD 06/23 Solumedrol daily - 5 days monitor renal parameters- start Phos binders- DC sosa HD in am- Slow hydrate Subjective ROS Limited/Unobtainable: No Constitutional: Reports: malaise Allergies: Coded Allergies: PIPERACILLIN (Verified Adverse Reaction, Intermediate, 06/20/16) pt developed diffuse macular rash per ER MD notes. unclear if due to vanco or zosyn TAZOBACTAM (Verified Adverse Reaction, Intermediate, 06/20/16) pt developed diffuse macular rash per ER MD notes. unclear if due to vanco or zosyn VANCOMYCIN (Verified Adverse Reaction, Intermediate, 06/20/16) pt developed diffuse macular rash per ER MD notes. unclear if due to vanco or zosyn Objective Last 24 Hour Vital Signs Date Time Temp Pulse Resp B/P Pulse Ox O2 Delivery O2 Flow Rate FiO2 06/24/16 12:05 Nasal Cannula 2.0 28 06/24/16 12:05 94 Nasal Cannula 2.0 28 06/24/16 12:00 97.0 89 18 141/91 92 Nasal Cannula 2.0 06/24/16 08:00 97.3 86 19 144/97 94 Nasal Cannula 2.0 06/24/16 04:00 97.2 90 19 133/80 91 Nasal Cannula 2.0 06/24/16 00:00 97.7 91 19 141/62 93 Nasal Cannula 2.0 06/23/16 20:00 97.5 94 18 127/66 95 Nasal Cannula 2.0 06/23/16 19:12 95 Nasal Cannula 2.0 28 06/23/16 19:12 Nasal Cannula 2.0 28 Intake and Output 06/23/16 06/24/16 19:00 07:00 Intake Total 600 ml 715 ml Output Total 1100 ml 900 ml Balance -500 ml -185 ml Intake Oral 600 ml 660 ml IV Total 55 ml Output Urine Total 900 ml Hemodialysis UF 1100 ml # Voids 1 Laboratory Tests 06/24/16 04:00: Urine Eosinophils None seen 06/24/16 05:10: White Blood Count 19.3H, Red Blood Count 3.96L, Hemoglobin 11.7L, Hematocrit 34.1L, Mean Corpuscular Volume 86, Mean Corpuscular Hemoglobin 29.5, Mean Corpuscular Hemoglobin Concent 34.1, Red Cell Distribution Width 11.4L, Platelet Count 476H, Mean Platelet Volume 7.3, Neutrophils (%) (Auto) , Lymphocytes (%) (Auto) , Monocytes (%) (Auto) , Eosinophils (%) (Auto) , Basophils (%) (Auto) , Differential Total Cells Counted 100, Neutrophils % ( Manual) 87H, Lymphocytes % (Manual) 6L, Monocytes % (Manual) 7, Eosinophils % ( Manual) 0, Basophils % (Manual) 0, Band Neutrophils 0, Platelet Estimate Adequate, Platelet Morphology Normal, Hypochromasia 1+, Sodium Level 140, Potassium Level 3.5, Chloride Level 94L, Carbon Dioxide Level 28, Anion Gap 18H , Blood Urea Nitrogen 56H, Creatinine 6.3H, Estimat Glomerular Filtration Rate 10.1, Glucose Level 150H, Uric Acid 10.6H, Calcium Level 8.6, Phosphorus Level 4.6, Magnesium Level 2.5, Total Bilirubin 0.3, Aspartate Amino Transf (AST/SGOT ) 19, Alanine Aminotransferase (ALT/SGPT) 15, Alkaline Phosphatase 84, C- Reactive Protein, Quantitative 6.2H, Pro-B-Type Natriuretic Peptide 537H, Total Protein 6.7, Albumin 3.0L, Globulin 3.7, Albumin/Globulin Ratio 0.8L, Hepatitis A IgM Antibody [Pending], Hepatitis B Surface Antigen [Pending], Hepatitis B Core IgM Antibody [Pending], Hepatitis C Antibody [Pending] Height (Feet): 5 Height (Inches): 5.00 Weight (Pounds): 170 General Appearance: no apparent distress Objective PE no change MILA GARCIA Jun 24, 2016 16:11
--- NOTE | 2016-06-24 16:20 | Cardiac Electrophysiology PN ---
Assessment/Plan Assessment/Plan 1. Tachycardia.Due to sinus tachycardia , due to patient's frequent, bilateral pulmonary process. There is no evidence of atrial fibrillation or any other supraventricular tachycardia. 2. History of hypertension, blood pressure currently is stable off any antihypertensives. 3. History of histoplasmosis. 4. Shortness of breath due to healthcare-associated pneumonia. Cefepime and Linezolid 5. Adverse reaction to antibiotics, unclear whether it was due to vancomycin versus Zosyn. Further evaluation is pending per Dr. Navarrete. 6. Acute renal failure. ? etiology. Had first dialysis yesterday. Next dialysis tomorrow am. HEIDI RN Subjective Subjective Had his second dialysis yesterday. Making small amount of urine.Alert in NAD. Objective Last 24 Hour Vital Signs Date Time Temp Pulse Resp B/P Pulse Ox O2 Delivery O2 Flow Rate FiO2 06/24/16 12:05 Nasal Cannula 2.0 28 06/24/16 12:05 94 Nasal Cannula 2.0 28 06/24/16 12:00 97.0 89 18 141/91 92 Nasal Cannula 2.0 06/24/16 08:00 97.3 86 19 144/97 94 Nasal Cannula 2.0 06/24/16 04:00 97.2 90 19 133/80 91 Nasal Cannula 2.0 06/24/16 00:00 97.7 91 19 141/62 93 Nasal Cannula 2.0 06/23/16 20:00 97.5 94 18 127/66 95 Nasal Cannula 2.0 06/23/16 19:12 95 Nasal Cannula 2.0 28 06/23/16 19:12 Nasal Cannula 2.0 28 Intake and Output 06/23/16 06/24/16 19:00 07:00 Intake Total 600 ml 715 ml Output Total 1100 ml 900 ml Balance -500 ml -185 ml Intake Oral 600 ml 660 ml IV Total 55 ml Output Urine Total 900 ml Hemodialysis UF 1100 ml # Voids 1 Laboratory Tests Test 06/24/16 04:00 06/24/16 05:10 Urine Eosinophils None seen White Blood Count 19.3 K/UL (4.8-10.8) H Red Blood Count 3.96 M/UL (4.70-6.10) L Hemoglobin 11.7 G/DL (14.2-18.0) L Hematocrit 34.1 % (42.0-52.0) L Mean Corpuscular Volume 86 FL (80-99) Mean Corpuscular Hemoglobin 29.5 PG (27.0-31.0) Mean Corpuscular Hemoglobin Concent 34.1 G/DL (32.0-36.0) Red Cell Distribution Width 11.4 % (11.6-14.8) L Platelet Count 476 K/UL (150-450) H Mean Platelet Volume 7.3 FL (6.5-10.1) Neutrophils (%) (Auto) % (45.0-75.0) Lymphocytes (%) (Auto) % (20.0-45.0) Monocytes (%) (Auto) % (1.0-10.0) Eosinophils (%) (Auto) % (0.0-3.0) Basophils (%) (Auto) % (0.0-2.0) Differential Total Cells Counted 100 Neutrophils % (Manual) 87 % (45-75) H Lymphocytes % (Manual) 6 % (20-45) L Monocytes % (Manual) 7 % (1-10) Eosinophils % (Manual) 0 % (0-3) Basophils % (Manual) 0 % (0-2) Band Neutrophils 0 % (0-8) Platelet Estimate Adequate Platelet Morphology Normal Hypochromasia 1+ Sodium Level 140 mEQ/L (135-145) Potassium Level 3.5 mEQ/L (3.4-4.9) Chloride Level 94 mEQ/L (98-107) L Carbon Dioxide Level 28 mEQ/L (20-30) Anion Gap 18 (5-15) H Blood Urea Nitrogen 56 mg/dL (7-23) H Creatinine 6.3 mg/dL (0.7-1.2) H Estimat Glomerular Filtration Rate 10.1 mL/min (>60) Glucose Level 150 mg/dL (74-106) H Uric Acid 10.6 mg/dL (3.0-7.5) H Calcium Level 8.6 mg/dL (8.6-10.2) Phosphorus Level 4.6 mg/dL (2.5-4.8) Magnesium Level 2.5 mg/dL (1.7-2.5) Total Bilirubin 0.3 mg/dL (0.0-1.2) Aspartate Amino Transf (AST/SGOT) 19 U/L (5-40) Alanine Aminotransferase (ALT/SGPT) 15 U/L (3-41) Alkaline Phosphatase 84 U/L (40-129) C-Reactive Protein, Quantitative 6.2 mg/dL (< 0.5) H Pro-B-Type Natriuretic Peptide 537 pg/mL (0-125) H Total Protein 6.7 g/dL (6.6-8.7) Albumin 3.0 g/dL (3.5-5.2) L Globulin 3.7 g/dL Albumin/Globulin Ratio 0.8 (1.0-2.7) L Hepatitis A IgM Antibody Pending Hepatitis B Surface Antigen Pending Hepatitis B Core IgM Antibody Pending Hepatitis C Antibody Pending Objective 1. Sinus tachycardia due to sepsis and renal failure. No atrial fibrillation or SVT.Much better. 2. History of hypertension, stable off any antihypertensives. 3. History of histoplasmosis. 4. Shortness of breath due to healthcare-associated pneumonia. On empiric Zyvox. 5. Adverse reaction to antibiotics, unclear whether it was due to vancomycin versus Zosyn but could be due to red man syndrome after rapid injection of vancomycin per Dr. Navarrete. 6. Acute renal failure. Now on HD DW JOHN ANNA Jun 24, 2016 16:20
--- NOTE | 2016-06-24 16:23 | Cardiac Electrophysiology PN ---
Assessment/Plan Assessment/Plan 1. Sinus tachycardia due to sepsis and renal failure. No atrial fibrillation or SVT.Much better. 2. History of hypertension, stable off any antihypertensives.On prn Clonidine. 3. History of histoplasmosis. 4. Shortness of breath due to healthcare-associated pneumonia. On empiric Zyvox. 5. Adverse reaction to antibiotics, unclear whether it was due to vancomycin versus Zosyn but could be due to red man syndrome after rapid injection of vancomycin per Dr. Navarrete. 6. Acute renal failure. Now on HD DW RN Subjective Subjective Had his second dialysis yesterday. Making small amount of urine.Alert in NAD. Objective Last 24 Hour Vital Signs Date Time Temp Pulse Resp B/P Pulse Ox O2 Delivery O2 Flow Rate FiO2 06/24/16 12:05 Nasal Cannula 2.0 28 06/24/16 12:05 94 Nasal Cannula 2.0 28 06/24/16 12:00 97.0 89 18 141/91 92 Nasal Cannula 2.0 06/24/16 08:00 97.3 86 19 144/97 94 Nasal Cannula 2.0 06/24/16 04:00 97.2 90 19 133/80 91 Nasal Cannula 2.0 06/24/16 00:00 97.7 91 19 141/62 93 Nasal Cannula 2.0 06/23/16 20:00 97.5 94 18 127/66 95 Nasal Cannula 2.0 06/23/16 19:12 95 Nasal Cannula 2.0 28 06/23/16 19:12 Nasal Cannula 2.0 28 Intake and Output 06/23/16 06/24/16 19:00 07:00 Intake Total 600 ml 715 ml Output Total 1100 ml 900 ml Balance -500 ml -185 ml Intake Oral 600 ml 660 ml IV Total 55 ml Output Urine Total 900 ml Hemodialysis UF 1100 ml # Voids 1 Laboratory Tests Test 06/24/16 04:00 06/24/16 05:10 Urine Eosinophils None seen White Blood Count 19.3 K/UL (4.8-10.8) H Red Blood Count 3.96 M/UL (4.70-6.10) L Hemoglobin 11.7 G/DL (14.2-18.0) L Hematocrit 34.1 % (42.0-52.0) L Mean Corpuscular Volume 86 FL (80-99) Mean Corpuscular Hemoglobin 29.5 PG (27.0-31.0) Mean Corpuscular Hemoglobin Concent 34.1 G/DL (32.0-36.0) Red Cell Distribution Width 11.4 % (11.6-14.8) L Platelet Count 476 K/UL (150-450) H Mean Platelet Volume 7.3 FL (6.5-10.1) Neutrophils (%) (Auto) % (45.0-75.0) Lymphocytes (%) (Auto) % (20.0-45.0) Monocytes (%) (Auto) % (1.0-10.0) Eosinophils (%) (Auto) % (0.0-3.0) Basophils (%) (Auto) % (0.0-2.0) Differential Total Cells Counted 100 Neutrophils % (Manual) 87 % (45-75) H Lymphocytes % (Manual) 6 % (20-45) L Monocytes % (Manual) 7 % (1-10) Eosinophils % (Manual) 0 % (0-3) Basophils % (Manual) 0 % (0-2) Band Neutrophils 0 % (0-8) Platelet Estimate Adequate Platelet Morphology Normal Hypochromasia 1+ Sodium Level 140 mEQ/L (135-145) Potassium Level 3.5 mEQ/L (3.4-4.9) Chloride Level 94 mEQ/L (98-107) L Carbon Dioxide Level 28 mEQ/L (20-30) Anion Gap 18 (5-15) H Blood Urea Nitrogen 56 mg/dL (7-23) H Creatinine 6.3 mg/dL (0.7-1.2) H Estimat Glomerular Filtration Rate 10.1 mL/min (>60) Glucose Level 150 mg/dL (74-106) H Uric Acid 10.6 mg/dL (3.0-7.5) H Calcium Level 8.6 mg/dL (8.6-10.2) Phosphorus Level 4.6 mg/dL (2.5-4.8) Magnesium Level 2.5 mg/dL (1.7-2.5) Total Bilirubin 0.3 mg/dL (0.0-1.2) Aspartate Amino Transf (AST/SGOT) 19 U/L (5-40) Alanine Aminotransferase (ALT/SGPT) 15 U/L (3-41) Alkaline Phosphatase 84 U/L (40-129) C-Reactive Protein, Quantitative 6.2 mg/dL (< 0.5) H Pro-B-Type Natriuretic Peptide 537 pg/mL (0-125) H Total Protein 6.7 g/dL (6.6-8.7) Albumin 3.0 g/dL (3.5-5.2) L Globulin 3.7 g/dL Albumin/Globulin Ratio 0.8 (1.0-2.7) L Hepatitis A IgM Antibody Pending Hepatitis B Surface Antigen Pending Hepatitis B Core IgM Antibody Pending Hepatitis C Antibody Pending Objective NECK: Shows no JVD. LUNGS: Coarse rhonchi. CARDIOVASCULAR: Shows regular S1 and S2 with no gallop or murmur. ABDOMEN: Soft. EXTREMITIES: No pitting edema. JOHN PENA Jun 24, 2016 16:23
--- NOTE | 2016-06-24 17:17 | Infectious Diseases Prog Note ---
Assessment/Plan Problems: (1) Lung abscess Assessment & Plan: will continue zyvox, cefepime and flagyl for 4 weeks , recommend repeat CT scan of the chest in 4 weeks for follow up, pulmonary is following, sputum culture showed normal keo so far. (2) HCAP (healthcare-associated pneumonia) Assessment & Plan: improving, continue zyvox , and cefepime empirically , await sputum and blood culture, had allergic reaction to either vancomycin or zosyn, most likely vancomycin with red man syndrome, will avoid for now. (3) Vomiting Assessment & Plan: due to pneumonia, improving, continue supportive care , monitor labs, continue hydration (4) Adverse reaction to antibiotic Assessment & Plan: unclear whether due to vancomycin VS zosyn , most likely vancomycin since it happened fast after infusion, suspect red man syndrome, will check blood eosinophils counts in blood. avoid both classes of antibiotics for now, ok to use cephalosporins since he received it last admission with no reaction (5) Histoplasmosis pneumonia Assessment & Plan: continue itraconazole, monitor LFT (6) LISET (acute kidney injury) Assessment & Plan: had HD cath placed by renal, and started on HD, avoid nephrotoxic meds. (7) Leukocytosis Assessment & Plan: due to steroids , will D/C since there is no benefit of steroids in this case Subjective Constitutional: Reports: anorexia, fatigue HEENT: Reports: no symptoms Respiratory: Reports: no symptoms Breasts: Reports: no symptoms Cardiovascular: Reports: no symptoms Gastrointestinal/Abdominal: Reports: no symptoms Genitourinary: Reports: no symptoms Neurologic: Reports: no symptoms Psychiatric: Reports: no symptoms Skin: Reports: no symptoms Endocrine: Reports: no symptoms Hematologic: Reports: no symptoms Allergies: Coded Allergies: PIPERACILLIN (Verified Adverse Reaction, Intermediate, 06/20/16) pt developed diffuse macular rash per ER MD notes. unclear if due to vanco or zosyn TAZOBACTAM (Verified Adverse Reaction, Intermediate, 06/20/16) pt developed diffuse macular rash per ER MD notes. unclear if due to vanco or zosyn VANCOMYCIN (Verified Adverse Reaction, Intermediate, 06/20/16) pt developed diffuse macular rash per ER MD notes. unclear if due to vanco or zosyn Subjective he feels better today, still have productive cough with yellowish phlegm, less fever, no chills, no vomiting. no skin rash or hives, tolerated current antibiotics well. Objective Vital Signs Last 24 Hour Vital Signs Date Time Temp Pulse Resp B/P Pulse Ox O2 Delivery O2 Flow Rate FiO2 06/24/16 16:00 97.5 90 18 126/55 93 Room Air 06/24/16 12:05 Nasal Cannula 2.0 28 06/24/16 12:05 94 Nasal Cannula 2.0 28 06/24/16 12:00 97.0 89 18 141/91 92 Nasal Cannula 2.0 06/24/16 08:00 97.3 86 19 144/97 94 Nasal Cannula 2.0 06/24/16 04:00 97.2 90 19 133/80 91 Nasal Cannula 2.0 06/24/16 00:00 97.7 91 19 141/62 93 Nasal Cannula 2.0 06/23/16 20:00 97.5 94 18 127/66 95 Nasal Cannula 2.0 06/23/16 19:12 95 Nasal Cannula 2.0 28 06/23/16 19:12 Nasal Cannula 2.0 28 Height (Feet): 5 Height (Inches): 5.00 Weight (Pounds): 170 General Appearance: WD/WN, no acute distress HEENT: normocephalic, atraumatic, anicteric, mucous membranes moist Respiratory/Chest: chest wall non-tender, normal breath sounds, no respiratory distress, no accessory muscle use, decreased breath sounds, crackles/rales Cardiovascular: normal peripheral pulses, normal rate, regular rhythm, no gallop/murmur Abdomen: normal bowel sounds, soft, non tender, no organomegaly, non distended , no mass, no scars Extremities: no cyanosis, no clubbing Skin: no rash, no lesions, no ulcers Laboratory Tests Test 06/24/16 04:00 06/24/16 05:10 Urine Eosinophils None seen White Blood Count 19.3 K/UL (4.8-10.8) H Red Blood Count 3.96 M/UL (4.70-6.10) L Hemoglobin 11.7 G/DL (14.2-18.0) L Hematocrit 34.1 % (42.0-52.0) L Mean Corpuscular Volume 86 FL (80-99) Mean Corpuscular Hemoglobin 29.5 PG (27.0-31.0) Mean Corpuscular Hemoglobin Concent 34.1 G/DL (32.0-36.0) Red Cell Distribution Width 11.4 % (11.6-14.8) L Platelet Count 476 K/UL (150-450) H Mean Platelet Volume 7.3 FL (6.5-10.1) Neutrophils (%) (Auto) % (45.0-75.0) Lymphocytes (%) (Auto) % (20.0-45.0) Monocytes (%) (Auto) % (1.0-10.0) Eosinophils (%) (Auto) % (0.0-3.0) Basophils (%) (Auto) % (0.0-2.0) Differential Total Cells Counted 100 Neutrophils % (Manual) 87 % (45-75) H Lymphocytes % (Manual) 6 % (20-45) L Monocytes % (Manual) 7 % (1-10) Eosinophils % (Manual) 0 % (0-3) Basophils % (Manual) 0 % (0-2) Band Neutrophils 0 % (0-8) Platelet Estimate Adequate Platelet Morphology Normal Hypochromasia 1+ Sodium Level 140 mEQ/L (135-145) Potassium Level 3.5 mEQ/L (3.4-4.9) Chloride Level 94 mEQ/L (98-107) L Carbon Dioxide Level 28 mEQ/L (20-30) Anion Gap 18 (5-15) H Blood Urea Nitrogen 56 mg/dL (7-23) H Creatinine 6.3 mg/dL (0.7-1.2) H Estimat Glomerular Filtration Rate 10.1 mL/min (>60) Glucose Level 150 mg/dL (74-106) H Uric Acid 10.6 mg/dL (3.0-7.5) H Calcium Level 8.6 mg/dL (8.6-10.2) Phosphorus Level 4.6 mg/dL (2.5-4.8) Magnesium Level 2.5 mg/dL (1.7-2.5) Total Bilirubin 0.3 mg/dL (0.0-1.2) Aspartate Amino Transf (AST/SGOT) 19 U/L (5-40) Alanine Aminotransferase (ALT/SGPT) 15 U/L (3-41) Alkaline Phosphatase 84 U/L (40-129) C-Reactive Protein, Quantitative 6.2 mg/dL (< 0.5) H Pro-B-Type Natriuretic Peptide 537 pg/mL (0-125) H Total Protein 6.7 g/dL (6.6-8.7) Albumin 3.0 g/dL (3.5-5.2) L Globulin 3.7 g/dL Albumin/Globulin Ratio 0.8 (1.0-2.7) L Hepatitis A IgM Antibody Pending Hepatitis B Surface Antigen Pending Hepatitis B Core IgM Antibody Pending Hepatitis C Antibody Pending Current Medications Medications (Trade) Dose Ordered Sig/Keila Route PRN Reason Start Time Stop Time Status Last Admin Dose Admin Acetaminophen (Tylenol) 650 mg Q4H PRN ORAL fever 06/23/16 21:00 07/23/16 20:59 Albuterol/ Ipratropium (DuoNeb 0.5-3(2.5)mg/3ml) 3 ml Q4HRT PRN HHN Shortness of Breath 06/23/16 19:00 06/28/16 18:59 Cefepime HCl/ Dextrose (Maxipime/D5W) 55 ml @ 110 mls/hr Q24H IV 06/23/16 21:00 06/30/16 20:59 06/23/16 21:00 Clonidine HCl (Catapres) 0.1 mg Q4H PRN ORAL BP over 170 syst 06/23/16 21:00 07/23/16 20:59 Heparin Sodium (Porcine) (Heparin 5000 units/ml) 5,000 units EVERY 12 HOURS SUBQ 06/23/16 21:00 07/23/16 20:59 06/24/16 09:21 Itraconazole (Sporanox) 200 mg Q12HR ORAL 06/23/16 21:00 06/30/16 20:59 06/24/16 09:12 Linezolid (Zyvox) 600 mg Q12HR ORAL 06/23/16 21:00 06/28/16 20:59 06/24/16 09:12 Methylprednisolone Sodium Succinate (Solu-MEDROL) 125 mg DAILY IV 06/24/16 09:00 06/27/16 09:01 06/24/16 09:13 Metronidazole (Flagyl) 500 mg Q8HR ORAL 06/23/16 22:00 06/30/16 21:59 06/24/16 13:45 Nitroglycerin (Ntg) 0.4 mg Q5MIN X3 PRN SL Prn Chest Pain 06/23/16 18:15 07/23/16 18:14 Ondansetron HCl (Zofran) 4 mg Q6H PRN IVP Nausea & Vomiting 06/23/16 19:00 07/23/16 18:59 Polyethylene Glycol (Miralax) 17 gm DAILYPRN PRN ORAL Constipation 06/24/16 13:00 07/24/16 12:59 Promethazine HCl/ Codeine (Phenergan with Codeine) 5 ml Q4H PRN ORAL For Cough 06/23/16 21:00 07/23/16 20:59 06/24/16 16:17 Ranitidine HCl 150 mg 150 mg BEDTIME ORAL 06/24/16 21:00 07/24/16 20:59 Sevelamer Carbonate (Renvela) 400 mg TIAC ORAL 06/24/16 11:45 07/24/16 11:44 06/24/16 16:10 Sodium Chloride (0.45% NS 1000ml) 1,000 ml @ 75 mls/hr [id number] IV 06/24/16 11:45 07/24/16 11:44 06/24/16 11:51 Temazepam 15 mg 15 mg HSPRN PRN ORAL Insomnia 06/23/16 21:00 06/30/16 20:59 06/23/16 22:20 Erin Navarrete M.D. Jun 24, 2016 17:17
[2016-06-24 20:00] VITALS: BP 134/79
[2016-06-24] MEDS: Cefepime HCl 500 MG in D5W 55 ML IV SCH (22:39)
[2016-06-25] VITALS (7 sets, daily range): BP systolic 109–140; BP diastolic 64–83
[2016-06-25 04:57] LABS: MEAN CORPUSCULAR HEMOGLOBIN 29.2 PG (27.0-31.0); MEAN CORPUSCULAR HGB CONC 33.9 G/DL (32.0-36.0); MEAN CORPUSCULAR VOLUME 86 FL (80-99); MEAN PLATELET VOLUME 6.9 FL (6.5-10.1); PLATELET COUNT 477 K/UL (150-450); RED BLOOD COUNT 4.11 M/UL (4.70-6.10); RED CELL DISTRIBUTION WIDTH 11.3 % (11.6-14.8); WHITE BLOOD COUNT 16.3 K/UL (4.8-10.8)
[2016-06-25 05:38] LABS: ALBUMIN/GLOBULIN RATIO 0.8 (1.0-2.7); CALCIUM 8.7 mg/dL (8.6-10.2); CREATININE 6.3 mg/dL (0.7-1.2); CRP QUANT 3.3 mg/dL (< 0.5); GLOMERULAR FILTRATION RATE 10.1 mL/min (>60); MAGNESIUM 2.4 mg/dL (1.7-2.5); PHOSPHORUS 6.7 mg/dL (2.5-4.8); POTASSIUM 3.7 mEQ/L (3.4-4.9); TOTAL PROTEIN 6.5 g/dL (6.6-8.7); URIC ACID 13.1 mg/dL (3.0-7.5)
[2016-06-25] MEDS: metroNIDAZOLE 500mg tab ORAL SCH ×3 (06:00→21:44)
[2016-06-25] MEDS: Heparin 5000 units/ml inj SUBQ SCH ×2 (09:01→21:46)
--- NOTE | 2016-06-25 10:18 | General Progress Note ---
Assessment/Plan Assessment/Plan ASSESSMENT: 1. Leukocytosis - getting worse, due to underlying Histoplasmosis pneumonia as well as steriods 2. Anemia secondary to chronic disease. 3. Decreased hemoglobin and hematocrit, rule out gastrointestinal bleed. 4. Nausea and vomiting potentially secondary to severe dehydration. 5. Community-acquired pneumonia on chest x-ray, is on linezolid and cefepime. 6. Eosinophilia history that is resolved. 7. Acute kidney injury--worsening RECOMMENDATIONS: 1. Monitor counts and maintain hgb >7 2. Monitor wbc counts 3. Antibiotics per ID service. 4. Anemia w/u has been reviewed 5. Repeat smear reviewed 6. DVT prophylaxis with heparin sq 7. GI prophylaxis as needed. 8. staff Thank you, Brigid Winston MD Subjective Constitutional: Reports: no symptoms HEENT: Reports: no symptoms Cardiovascular: Reports: no symptoms Respiratory: Reports: no symptoms Gastrointestinal/Abdominal: Reports: no symptoms Genitourinary: Reports: no symptoms Neurologic/Psychiatric: Reports: no symptoms Endocrine: Reports: no symptoms Hematologic/Lymphatic: Reports: anemia Allergies: Coded Allergies: PIPERACILLIN (Verified Adverse Reaction, Intermediate, 06/20/16) pt developed diffuse macular rash per ER MD notes. unclear if due to vanco or zosyn TAZOBACTAM (Verified Adverse Reaction, Intermediate, 06/20/16) pt developed diffuse macular rash per ER MD notes. unclear if due to vanco or zosyn VANCOMYCIN (Verified Adverse Reaction, Intermediate, 06/20/16) pt developed diffuse macular rash per ER MD notes. unclear if due to vanco or zosyn Subjective stable, no bleeding reported, no fevers or chills Objective Last 24 Hour Vital Signs Date Time Temp Pulse Resp B/P Pulse Ox O2 Delivery O2 Flow Rate FiO2 06/25/16 07:00 Nasal Cannula 2.0 06/25/16 07:00 97.0 70 20 137/79 Nasal Cannula 2.0 06/25/16 03:45 Nasal Cannula 2.0 06/25/16 03:45 97.0 72 22 140/81 92 Nasal Cannula 2.0 06/25/16 00:00 97.2 72 21 138/79 95 Nasal Cannula 2.0 06/24/16 20:00 98.1 84 16 134/79 94 Room Air 06/24/16 19:27 84 18 Nasal Cannula 2.0 28 06/24/16 19:26 Nasal Cannula 2.0 28 06/24/16 19:26 95 Nasal Cannula 2.0 28 06/24/16 16:00 97.5 90 18 126/55 93 Room Air 06/24/16 12:05 Nasal Cannula 2.0 28 06/24/16 12:05 94 Nasal Cannula 2.0 28 06/24/16 12:00 97.0 89 18 141/91 92 Nasal Cannula 2.0 Intake and Output 06/24/16 06/25/16 19:00 07:00 Intake Total 840 ml Output Total 675 ml 1650 ml Balance 165 ml -1650 ml Intake Oral 840 ml Output Urine Total 675 ml 550 ml Hemodialysis UF 1100 ml # Bowel Movements 1 Laboratory Tests 06/25/16 03:30: White Blood Count 16.3H, Red Blood Count 4.11L, Hemoglobin 12.0L, Hematocrit 35.3L, Mean Corpuscular Volume 86, Mean Corpuscular Hemoglobin 29.2, Mean Corpuscular Hemoglobin Concent 33.9, Red Cell Distribution Width 11.3L, Platelet Count 477H, Mean Platelet Volume 6.9, Neutrophils (%) (Auto) , Lymphocytes (%) (Auto) , Monocytes (%) (Auto) , Eosinophils (%) (Auto) , Basophils (%) (Auto) , Neutrophils % (Manual) [Pending], Lymphocytes % (Manual) [Pending], Platelet Estimate [Pending], Platelet Morphology [Pending], Sodium Level 136, Potassium Level 3.7, Chloride Level 91L, Carbon Dioxide Level 27, Anion Gap 18H, Blood Urea Nitrogen 78H, Creatinine 6.3H, Estimat Glomerular Filtration Rate 10.1, Glucose Level 138H, Uric Acid 13.1H, Calcium Level 8.7, Phosphorus Level 6.7H, Magnesium Level 2.4, Total Bilirubin 0.3, Aspartate Amino Transf (AST/SGOT) 17, Alanine Aminotransferase (ALT/SGPT) 13, Alkaline Phosphatase 50, C-Reactive Protein, Quantitative 3.3H, Total Protein 6.5L, Albumin 2.9L, Globulin 3.6, Albumin/Globulin Ratio 0.8L Height (Feet): 5 Height (Inches): 5.00 Weight (Pounds): 170 General Appearance: alert EENT: TMs normal Neck: normal alignment Cardiovascular: regular rhythm Respiratory/Chest: lungs clear Abdomen: non tender Extremities: non-tender Edema: no edema noted Leg (L), no edema noted Leg (R) Neurologic: oriented x 3 Skin: warm/dry BRIGID WINSTON Jun 25, 2016 10:17
--- NOTE | 2016-06-25 11:19 | General Progress Note ---
Assessment/Plan Problem List: (1) Histoplasmosis pneumonia ICD Codes: B39.2 - Pulmonary histoplasmosis capsulati, unspecified SNOMED: 334058443 (2) Vomiting ICD Codes: R11.10 - Vomiting, unspecified SNOMED: 965858522 (3) Adverse reaction to antibiotic ICD Codes: T36.95XA - Adverse effect of unspecified systemic antibiotic, initial encounter SNOMED: 283362022, 860729375 Qualifiers: Qualified Codes: T36.95XA - Adverse effect of unspecified systemic antibiotic, initial encounter (4) Cavitary lung disease ICD Codes: J98.4 - Other disorders of lung SNOMED: 80281862 (5) Pneumonia ICD Codes: J18.9 - Pneumonia, unspecified organism SNOMED: 623391283 (6) HTN (hypertension) ICD Codes: I10 - Essential (primary) hypertension SNOMED: 63053190 Qualifiers: Qualified Codes: I10 - Essential (primary) hypertension (7) Hyperlipidemia, mixed ICD Codes: E78.2 - Mixed hyperlipidemia SNOMED: 086277091 (8) Pleurisy ICD Codes: R09.1 - Pleurisy SNOMED: 164733912 Status: progressing Assessment/Plan afebrile vitals stable pna lyte abnormality no wheezing reviewed chart and labs Subjective ROS Limited/Unobtainable: Yes Constitutional: Reports: no symptoms Allergies: Coded Allergies: PIPERACILLIN (Verified Adverse Reaction, Intermediate, 06/20/16) pt developed diffuse macular rash per ER MD notes. unclear if due to vanco or zosyn TAZOBACTAM (Verified Adverse Reaction, Intermediate, 06/20/16) pt developed diffuse macular rash per ER MD notes. unclear if due to vanco or zosyn VANCOMYCIN (Verified Adverse Reaction, Intermediate, 06/20/16) pt developed diffuse macular rash per ER MD notes. unclear if due to vanco or zosyn Objective Last 24 Hour Vital Signs Date Time Temp Pulse Resp B/P Pulse Ox O2 Delivery O2 Flow Rate FiO2 06/25/16 07:00 Nasal Cannula 2.0 06/25/16 07:00 97.0 70 20 137/79 Nasal Cannula 2.0 06/25/16 03:45 Nasal Cannula 2.0 06/25/16 03:45 97.0 72 22 140/81 92 Nasal Cannula 2.0 06/25/16 00:00 97.2 72 21 138/79 95 Nasal Cannula 2.0 06/24/16 20:00 98.1 84 16 134/79 94 Room Air 06/24/16 19:27 84 18 Nasal Cannula 2.0 28 06/24/16 19:26 Nasal Cannula 2.0 28 06/24/16 19:26 95 Nasal Cannula 2.0 28 06/24/16 16:00 97.5 90 18 126/55 93 Room Air 06/24/16 12:05 Nasal Cannula 2.0 28 06/24/16 12:05 94 Nasal Cannula 2.0 28 06/24/16 12:00 97.0 89 18 141/91 92 Nasal Cannula 2.0 Intake and Output 06/24/16 06/25/16 19:00 07:00 Intake Total 840 ml Output Total 675 ml 1650 ml Balance 165 ml -1650 ml Intake Oral 840 ml Output Urine Total 675 ml 550 ml Hemodialysis UF 1100 ml # Bowel Movements 1 Laboratory Tests 06/25/16 03:30: White Blood Count 16.3H, Red Blood Count 4.11L, Hemoglobin 12.0L, Hematocrit 35.3L, Mean Corpuscular Volume 86, Mean Corpuscular Hemoglobin 29.2, Mean Corpuscular Hemoglobin Concent 33.9, Red Cell Distribution Width 11.3L, Platelet Count 477H, Mean Platelet Volume 6.9, Neutrophils (%) (Auto) , Lymphocytes (%) (Auto) , Monocytes (%) (Auto) , Eosinophils (%) (Auto) , Basophils (%) (Auto) , Neutrophils % (Manual) [Pending], Lymphocytes % (Manual) [Pending], Platelet Estimate [Pending], Platelet Morphology [Pending], Sodium Level 136, Potassium Level 3.7, Chloride Level 91L, Carbon Dioxide Level 27, Anion Gap 18H, Blood Urea Nitrogen 78H, Creatinine 6.3H, Estimat Glomerular Filtration Rate 10.1, Glucose Level 138H, Uric Acid 13.1H, Calcium Level 8.7, Phosphorus Level 6.7H, Magnesium Level 2.4, Total Bilirubin 0.3, Aspartate Amino Transf (AST/SGOT) 17, Alanine Aminotransferase (ALT/SGPT) 13, Alkaline Phosphatase 50, C-Reactive Protein, Quantitative 3.3H, Total Protein 6.5L, Albumin 2.9L, Globulin 3.6, Albumin/Globulin Ratio 0.8L Height (Feet): 5 Height (Inches): 5.00 Weight (Pounds): 170 EENT: PERRL/EOMI Neck: supple Cardiovascular: normal rate Respiratory/Chest: lungs clear Jesse Dean MD Jun 25, 2016 11:19
[2016-06-25 11:27] LABS: EOSINOPHILS % (MANUAL) 1 % (0-3); LYMPHOCYTES % (MANUAL) 7 % (20-45); NEUTROPHILS % (MANUAL) 88 % (45-75); PLATELET MORPHOLOGY NORMAL; TOTAL CELLS COUNTED 100
[2016-06-25 11:28] LABS: BAND NEUTROPHILS % (MANUAL) 0 % (0-8); BASOPHILS % (MANUAL) 0 % (0-2); PLATELET ESTIMATE INCREASED
--- NOTE | 2016-06-25 11:53 | Pulmonology Progress Note ---
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 Thoracic surgery Not amenable to percutaneous catheter drainage. New multifocal parenchymal airspace opacities suspicious for disseminated pneumonia CXR 06/23- suspected infiltrate versus atelectasis at the right lung base. sputum cx, blood cx, influenza screen - all negative abx and Itraconazole ID follows antitussive prn renal US negative, no hydro nephro follows urine + eosinophils, nephro favoring allergic cause of ARF over infectious started on steroids x 5 days ( per nephro) creat plateau today, watch closely HD as per nephro monitor renal parameters , lytes DVT, GI prophylaxis case discussed and evaluated by supervising physician Subjective Allergies: Coded Allergies: PIPERACILLIN (Verified Adverse Reaction, Intermediate, 06/20/16) pt developed diffuse macular rash per ER MD notes. unclear if due to vanco or zosyn TAZOBACTAM (Verified Adverse Reaction, Intermediate, 06/20/16) pt developed diffuse macular rash per ER MD notes. unclear if due to vanco or zosyn VANCOMYCIN (Verified Adverse Reaction, Intermediate, 06/20/16) pt developed diffuse macular rash per ER MD notes. unclear if due to vanco or zosyn Subjective on [facility] floor reports feeling a bit better no respiratory distress on O2 via NV, sat stable; denies SOB, admits to cough and chest pain with deep breathing afebrile, leukocytosis with trend down creat plateau today Objective Last 24 Hour Vital Signs Date Time Temp Pulse Resp B/P Pulse Ox O2 Delivery O2 Flow Rate FiO2 06/25/16 07:00 Nasal Cannula 2.0 06/25/16 07:00 97.0 70 20 137/79 Nasal Cannula 2.0 06/25/16 03:45 Nasal Cannula 2.0 06/25/16 03:45 97.0 72 22 140/81 92 Nasal Cannula 2.0 06/25/16 00:00 97.2 72 21 138/79 95 Nasal Cannula 2.0 06/24/16 20:00 98.1 84 16 134/79 94 Room Air 06/24/16 19:27 84 18 Nasal Cannula 2.0 28 06/24/16 19:26 Nasal Cannula 2.0 28 06/24/16 19:26 95 Nasal Cannula 2.0 28 06/24/16 16:00 97.5 90 18 126/55 93 Room Air 06/24/16 12:05 Nasal Cannula 2.0 28 06/24/16 12:05 94 Nasal Cannula 2.0 28 06/24/16 12:00 97.0 89 18 141/91 92 Nasal Cannula 2.0 Intake and Output 06/24/16 06/25/16 19:00 07:00 Intake Total 840 ml Output Total 675 ml 1650 ml Balance 165 ml -1650 ml Intake Oral 840 ml Output Urine Total 675 ml 550 ml Hemodialysis UF 1100 ml # Bowel Movements 1 Objective General Appearance: WD/WN, no acute distress HEENT: normocephalic, atraumatic, anicteric, mucous membranes moist, other - O2 via NC Respiratory/Chest: lungs clear - with decreased BS on the right , no respiratory distress, no accessory muscle use, other - RIJ HD catheter, intact Cardiovascular: normal rate, regular rhythm Abdomen: soft, non tender, non distended Genitourinary: normal external genitalia Extremities: no edema Neurologic/Psychiatric: no motor/sensory deficits, alert, oriented x 3, responsive Musculoskeletal: normal muscle bulk Laboratory Tests 06/25/16 03:30: White Blood Count 16.3H, Red Blood Count 4.11L, Hemoglobin 12.0L, Hematocrit 35.3L, Mean Corpuscular Volume 86, Mean Corpuscular Hemoglobin 29.2, Mean Corpuscular Hemoglobin Concent 33.9, Red Cell Distribution Width 11.3L, Platelet Count 477H, Mean Platelet Volume 6.9, Neutrophils (%) (Auto) , Lymphocytes (%) (Auto) , Monocytes (%) (Auto) , Eosinophils (%) (Auto) , Basophils (%) (Auto) , Differential Total Cells Counted 100, Neutrophils % ( Manual) 88H, Lymphocytes % (Manual) 7L, Monocytes % (Manual) 4, Eosinophils % ( Manual) 1, Basophils % (Manual) 0, Band Neutrophils 0, Platelet Estimate IncreasedH, Platelet Morphology Normal, Red Blood Cell Morphology Normal, Sodium Level 136, Potassium Level 3.7, Chloride Level 91L, Carbon Dioxide Level 27, Anion Gap 18H, Blood Urea Nitrogen 78H, Creatinine 6.3H, Estimat Glomerular Filtration Rate 10.1, Glucose Level 138H, Uric Acid 13.1H, Calcium Level 8.7, Phosphorus Level 6.7H, Magnesium Level 2.4, Total Bilirubin 0.3, Aspartate Amino Transf (AST/SGOT) 17, Alanine Aminotransferase (ALT/SGPT) 13, Alkaline Phosphatase 50, C-Reactive Protein, Quantitative 3.3H, Total Protein 6.5L, Albumin 2.9L, Globulin 3.6, Albumin/Globulin Ratio 0.8L Current Medications Medications (Trade) Dose Ordered Sig/Keila Route PRN Reason Start Time Stop Time Status Last Admin Dose Admin Acetaminophen (Tylenol) 650 mg Q4H PRN ORAL fever 06/23/16 21:00 07/23/16 20:59 Albuterol/ Ipratropium (DuoNeb 0.5-3(2.5)mg/3ml) 3 ml Q4HRT PRN HHN Shortness of Breath 06/23/16 19:00 06/28/16 18:59 Cefepime HCl/ Dextrose (Maxipime/D5W) 55 ml @ 110 mls/hr Q24H IV 06/23/16 21:00 06/30/16 20:59 06/24/16 22:39 Clonidine HCl (Catapres) 0.1 mg Q4H PRN ORAL BP over 170 syst 06/23/16 21:00 07/23/16 20:59 Heparin Sodium (Porcine) (Heparin 5000 units/ml) 5,000 units EVERY 12 HOURS SUBQ 06/23/16 21:00 07/23/16 20:59 06/25/16 09:01 Itraconazole (Sporanox) 200 mg Q12HR ORAL 06/23/16 21:00 06/30/16 20:59 06/24/16 09:12 Linezolid (Zyvox) 600 mg Q12HR ORAL 06/23/16 21:00 06/28/16 20:59 06/25/16 08:59 Metronidazole (Flagyl) 500 mg Q8HR ORAL 06/23/16 22:00 06/30/16 21:59 06/25/16 06:00 Nitroglycerin (Ntg) 0.4 mg Q5MIN X3 PRN SL Prn Chest Pain 06/23/16 18:15 07/23/16 18:14 Ondansetron HCl (Zofran) 4 mg Q6H PRN IVP Nausea & Vomiting 06/23/16 19:00 07/23/16 18:59 Polyethylene Glycol (Miralax) 17 gm DAILYPRN PRN ORAL Constipation 06/24/16 13:00 07/24/16 12:59 Promethazine HCl/ Codeine (Phenergan with Codeine) 5 ml Q4H PRN ORAL For Cough 06/23/16 21:00 07/23/16 20:59 06/24/16 22:49 Ranitidine HCl 150 mg 150 mg BEDTIME ORAL 06/24/16 21:00 07/24/16 20:59 06/24/16 22:40 Sevelamer Carbonate (Renvela) 400 mg TIAC ORAL 06/24/16 11:45 07/24/16 11:44 06/25/16 11:31 Sodium Chloride (0.45% NS 1000ml) 1,000 ml @ 75 mls/hr [id number] IV 06/24/16 11:45 07/24/16 11:44 06/25/16 01:05 Temazepam 15 mg 15 mg HSPRN PRN ORAL Insomnia 06/23/16 21:00 06/30/16 20:59 06/23/16 22:20 Garth ([facility])Yanci NP Jun 25, 2016 11:53
--- NOTE | 2016-06-25 14:37 | General Progress Note ---
Assessment/Plan Status: stable Assessment/Plan Status: Acute renal failure ( Allergic vs Sepsis) Urine positive for Eosinophils leading to Allergic etiology Other: 1) Lung abscess (2) Pneumonia (3) HTN (hypertension) (4) Adverse reaction to antibiotic (5) Pleurisy (6) HCAP (healthcare-associated pneumonia) Plan: Solumedrol daily - 5 days monitor renal parameters- start Phos binders- DC sosa HD today done Slow hydrate Subjective ROS Limited/Unobtainable: No Allergies: Coded Allergies: PIPERACILLIN (Verified Adverse Reaction, Intermediate, 06/20/16) pt developed diffuse macular rash per ER MD notes. unclear if due to vanco or zosyn TAZOBACTAM (Verified Adverse Reaction, Intermediate, 06/20/16) pt developed diffuse macular rash per ER MD notes. unclear if due to vanco or zosyn VANCOMYCIN (Verified Adverse Reaction, Intermediate, 06/20/16) pt developed diffuse macular rash per ER MD notes. unclear if due to vanco or zosyn Objective Last 24 Hour Vital Signs Date Time Temp Pulse Resp B/P Pulse Ox O2 Delivery O2 Flow Rate FiO2 06/25/16 12:00 96.3 75 20 122/64 96 Nasal Cannula 2.0 06/25/16 08:00 97.3 77 19 130/83 95 Nasal Cannula 2.0 06/25/16 07:00 Nasal Cannula 2.0 06/25/16 07:00 97.0 70 20 137/79 Nasal Cannula 2.0 06/25/16 03:45 Nasal Cannula 2.0 06/25/16 03:45 97.0 72 22 140/81 92 Nasal Cannula 2.0 06/25/16 00:00 97.2 72 21 138/79 95 Nasal Cannula 2.0 06/24/16 20:00 98.1 84 16 134/79 94 Room Air 06/24/16 19:27 84 18 Nasal Cannula 2.0 28 06/24/16 19:26 Nasal Cannula 2.0 28 06/24/16 19:26 95 Nasal Cannula 2.0 28 06/24/16 16:00 97.5 90 18 126/55 93 Room Air Intake and Output 06/24/16 06/25/16 19:00 07:00 Intake Total 840 ml Output Total 675 ml 1650 ml Balance 165 ml -1650 ml Intake Oral 840 ml Output Urine Total 675 ml 550 ml Hemodialysis UF 1100 ml # Bowel Movements 1 Laboratory Tests 06/25/16 03:30: White Blood Count 16.3H, Red Blood Count 4.11L, Hemoglobin 12.0L, Hematocrit 35.3L, Mean Corpuscular Volume 86, Mean Corpuscular Hemoglobin 29.2, Mean Corpuscular Hemoglobin Concent 33.9, Red Cell Distribution Width 11.3L, Platelet Count 477H, Mean Platelet Volume 6.9, Neutrophils (%) (Auto) , Lymphocytes (%) (Auto) , Monocytes (%) (Auto) , Eosinophils (%) (Auto) , Basophils (%) (Auto) , Differential Total Cells Counted 100, Neutrophils % ( Manual) 88H, Lymphocytes % (Manual) 7L, Monocytes % (Manual) 4, Eosinophils % ( Manual) 1, Basophils % (Manual) 0, Band Neutrophils 0, Platelet Estimate IncreasedH, Platelet Morphology Normal, Red Blood Cell Morphology Normal, Sodium Level 136, Potassium Level 3.7, Chloride Level 91L, Carbon Dioxide Level 27, Anion Gap 18H, Blood Urea Nitrogen 78H, Creatinine 6.3H, Estimat Glomerular Filtration Rate 10.1, Glucose Level 138H, Uric Acid 13.1H, Calcium Level 8.7, Phosphorus Level 6.7H, Magnesium Level 2.4, Total Bilirubin 0.3, Aspartate Amino Transf (AST/SGOT) 17, Alanine Aminotransferase (ALT/SGPT) 13, Alkaline Phosphatase 50, C-Reactive Protein, Quantitative 3.3H, Total Protein 6.5L, Albumin 2.9L, Globulin 3.6, Albumin/Globulin Ratio 0.8L Height (Feet): 5 Height (Inches): 5.00 Weight (Pounds): 170 General Appearance: no apparent distress Objective PE no change MILA GARCIA Jun 25, 2016 14:37
--- NOTE | 2016-06-25 14:40 | Infectious Diseases Prog Note ---
Assessment/Plan Problems: (1) Lung abscess Assessment & Plan: continue zyvox, cefepime and flagyl for 4 weeks , recommend to repeat CT scan of the chest in 4 weeks for follow up, pulmonary is following , sputum culture showed normal keo so far. (2) HCAP (healthcare-associated pneumonia) Assessment & Plan: improving, continue zyvox , and cefepime empirically, await sputum and blood culture, had allergic reaction to either vancomycin or zosyn, most likely vancomycin with red man syndrome, will avoid for now. (3) Adverse reaction to antibiotic Assessment & Plan: unclear whether due to vancomycin VS zosyn , most likely vancomycin since it happened fast after infusion, suspect red man syndrome, will check blood eosinophils counts in blood. avoid both classes of antibiotics for now, ok to use cephalosporins since he received it last admission with no reaction (4) Histoplasmosis pneumonia Assessment & Plan: continue itraconazole, monitor LFT (5) LISET (acute kidney injury) Assessment & Plan: had HD cath placed by renal, and started on HD, avoid nephrotoxic meds. (6) Leukocytosis Assessment & Plan: due to steroids , will D/C since there is no benefit of steroids in this case Subjective Constitutional: Reports: anorexia HEENT: Reports: no symptoms Respiratory: Reports: no symptoms Breasts: Reports: no symptoms Cardiovascular: Reports: no symptoms Gastrointestinal/Abdominal: Reports: no symptoms Genitourinary: Reports: no symptoms Neurologic: Reports: no symptoms Psychiatric: Reports: no symptoms Skin: Reports: no symptoms Endocrine: Reports: no symptoms Hematologic: Reports: no symptoms Allergies: Coded Allergies: PIPERACILLIN (Verified Adverse Reaction, Intermediate, 06/20/16) pt developed diffuse macular rash per ER MD notes. unclear if due to vanco or zosyn TAZOBACTAM (Verified Adverse Reaction, Intermediate, 06/20/16) pt developed diffuse macular rash per ER MD notes. unclear if due to vanco or zosyn VANCOMYCIN (Verified Adverse Reaction, Intermediate, 06/20/16) pt developed diffuse macular rash per ER MD notes. unclear if due to vanco or zosyn Subjective he feels better today, still have productive cough with yellowish phlegm, less fever, no chills, no vomiting. no skin rash or hives, tolerated current antibiotics well. Objective Vital Signs Last 24 Hour Vital Signs Date Time Temp Pulse Resp B/P Pulse Ox O2 Delivery O2 Flow Rate FiO2 06/25/16 12:00 96.3 75 20 122/64 96 Nasal Cannula 2.0 06/25/16 08:00 97.3 77 19 130/83 95 Nasal Cannula 2.0 06/25/16 07:00 Nasal Cannula 2.0 06/25/16 07:00 97.0 70 20 137/79 Nasal Cannula 2.0 06/25/16 03:45 Nasal Cannula 2.0 06/25/16 03:45 97.0 72 22 140/81 92 Nasal Cannula 2.0 06/25/16 00:00 97.2 72 21 138/79 95 Nasal Cannula 2.0 06/24/16 20:00 98.1 84 16 134/79 94 Room Air 06/24/16 19:27 84 18 Nasal Cannula 2.0 28 06/24/16 19:26 Nasal Cannula 2.0 28 06/24/16 19:26 95 Nasal Cannula 2.0 28 06/24/16 16:00 97.5 90 18 126/55 93 Room Air Height (Feet): 5 Height (Inches): 5.00 Weight (Pounds): 170 General Appearance: WD/WN, no acute distress HEENT: normocephalic, atraumatic, anicteric, mucous membranes moist Respiratory/Chest: chest wall non-tender, normal breath sounds, no respiratory distress, no accessory muscle use, decreased breath sounds, crackles/rales Cardiovascular: normal peripheral pulses, normal rate, regular rhythm, no gallop/murmur Abdomen: normal bowel sounds, soft, non tender, no organomegaly, non distended , no mass, no scars Extremities: no cyanosis, no clubbing Skin: no rash, no lesions, no ulcers Laboratory Tests Test 06/25/16 03:30 White Blood Count 16.3 K/UL (4.8-10.8) H Red Blood Count 4.11 M/UL (4.70-6.10) L Hemoglobin 12.0 G/DL (14.2-18.0) L Hematocrit 35.3 % (42.0-52.0) L Mean Corpuscular Volume 86 FL (80-99) Mean Corpuscular Hemoglobin 29.2 PG (27.0-31.0) Mean Corpuscular Hemoglobin Concent 33.9 G/DL (32.0-36.0) Red Cell Distribution Width 11.3 % (11.6-14.8) L Platelet Count 477 K/UL (150-450) H Mean Platelet Volume 6.9 FL (6.5-10.1) Neutrophils (%) (Auto) % (45.0-75.0) Lymphocytes (%) (Auto) % (20.0-45.0) Monocytes (%) (Auto) % (1.0-10.0) Eosinophils (%) (Auto) % (0.0-3.0) Basophils (%) (Auto) % (0.0-2.0) Differential Total Cells Counted 100 Neutrophils % (Manual) 88 % (45-75) H Lymphocytes % (Manual) 7 % (20-45) L Monocytes % (Manual) 4 % (1-10) Eosinophils % (Manual) 1 % (0-3) Basophils % (Manual) 0 % (0-2) Band Neutrophils 0 % (0-8) Platelet Estimate Increased H Platelet Morphology Normal Red Blood Cell Morphology Normal Sodium Level 136 mEQ/L (135-145) Potassium Level 3.7 mEQ/L (3.4-4.9) Chloride Level 91 mEQ/L (98-107) L Carbon Dioxide Level 27 mEQ/L (20-30) Anion Gap 18 (5-15) H Blood Urea Nitrogen 78 mg/dL (7-23) H Creatinine 6.3 mg/dL (0.7-1.2) H Estimat Glomerular Filtration Rate 10.1 mL/min (>60) Glucose Level 138 mg/dL (74-106) H Uric Acid 13.1 mg/dL (3.0-7.5) H Calcium Level 8.7 mg/dL (8.6-10.2) Phosphorus Level 6.7 mg/dL (2.5-4.8) H Magnesium Level 2.4 mg/dL (1.7-2.5) Total Bilirubin 0.3 mg/dL (0.0-1.2) Aspartate Amino Transf (AST/SGOT) 17 U/L (5-40) Alanine Aminotransferase (ALT/SGPT) 13 U/L (3-41) Alkaline Phosphatase 50 U/L (40-129) C-Reactive Protein, Quantitative 3.3 mg/dL (< 0.5) H Total Protein 6.5 g/dL (6.6-8.7) L Albumin 2.9 g/dL (3.5-5.2) L Globulin 3.6 g/dL Albumin/Globulin Ratio 0.8 (1.0-2.7) L Current Medications Medications (Trade) Dose Ordered Sig/Keila Route PRN Reason Start Time Stop Time Status Last Admin Dose Admin Acetaminophen (Tylenol) 650 mg Q4H PRN ORAL fever 06/23/16 21:00 07/23/16 20:59 Albuterol/ Ipratropium (DuoNeb 0.5-3(2.5)mg/3ml) 3 ml Q4HRT PRN HHN Shortness of Breath 06/23/16 19:00 06/28/16 18:59 Cefepime HCl/ Dextrose (Maxipime/D5W) 55 ml @ 110 mls/hr Q24H IV 06/23/16 21:00 06/30/16 20:59 06/24/16 22:39 Clonidine HCl (Catapres) 0.1 mg Q4H PRN ORAL BP over 170 syst 06/23/16 21:00 07/23/16 20:59 Heparin Sodium (Porcine) (Heparin 5000 units/ml) 5,000 units EVERY 12 HOURS SUBQ 06/23/16 21:00 07/23/16 20:59 06/25/16 09:01 Itraconazole (Sporanox) 200 mg Q12HR ORAL 06/23/16 21:00 06/30/16 20:59 06/24/16 09:12 Linezolid (Zyvox) 600 mg Q12HR ORAL 06/23/16 21:00 06/28/16 20:59 06/25/16 08:59 Metronidazole (Flagyl) 500 mg Q8HR ORAL 06/23/16 22:00 06/30/16 21:59 06/25/16 06:00 Nitroglycerin (Ntg) 0.4 mg Q5MIN X3 PRN SL Prn Chest Pain 06/23/16 18:15 07/23/16 18:14 Ondansetron HCl (Zofran) 4 mg Q6H PRN IVP Nausea & Vomiting 06/23/16 19:00 07/23/16 18:59 Polyethylene Glycol (Miralax) 17 gm DAILYPRN PRN ORAL Constipation 06/24/16 13:00 07/24/16 12:59 Promethazine HCl/ Codeine (Phenergan with Codeine) 5 ml Q4H PRN ORAL For Cough 06/23/16 21:00 07/23/16 20:59 06/24/16 22:49 Ranitidine HCl 150 mg 150 mg BEDTIME ORAL 06/24/16 21:00 07/24/16 20:59 06/24/16 22:40 Sevelamer Carbonate (Renvela) 1,600 mg TIAC ORAL 06/25/16 16:30 07/25/16 16:29 Sodium Chloride (0.45% NS 1000ml) 1,000 ml @ 75 mls/hr [id number] IV 06/24/16 11:45 07/24/16 11:44 06/25/16 01:05 Temazepam 15 mg 15 mg HSPRN PRN ORAL Insomnia 06/23/16 21:00 06/30/16 20:59 06/23/16 22:20 Erin Navarrete M.D. Jun 25, 2016 14:40
[2016-06-25] MEDS ORDERED: NS 275ml ONE ×3 (14:48→15:58)
[2016-06-25] MEDS ORDERED: Tubing IV Secondary IV ONE ×3 (14:48→15:58)
--- NOTE | 2016-06-25 17:50 | Cardiac Electrophysiology PN ---
Assessment/Plan Assessment/Plan 1. Sinus tachycardia due to sepsis and renal failure. No atrial fibrillation or SVT. 2. Hypertension, stable off any antihypertensives.On prn Clonidine. 3. History of histoplasmosis. 4. Shortness of breath due to healthcare-associated pneumonia. On empiric Zyvox. 5. Adverse reaction to antibiotics, unclear whether it was due to vancomycin versus Zosyn 6. Acute renal failure.On HD DW RN Subjective Subjective Had dialysis today again. No chest pain or SOB..Alert in NAD. Objective Last 24 Hour Vital Signs Date Time Temp Pulse Resp B/P Pulse Ox O2 Delivery O2 Flow Rate FiO2 06/25/16 16:00 97.5 76 16 109/68 96 Room Air 06/25/16 12:00 96.3 75 20 122/64 96 Nasal Cannula 2.0 06/25/16 08:00 97.3 77 19 130/83 95 Nasal Cannula 2.0 06/25/16 07:30 Nasal Cannula 2.0 28 06/25/16 07:30 70 20 Nasal Cannula 2.0 28 06/25/16 07:30 95 Nasal Cannula 2.0 28 06/25/16 07:00 Nasal Cannula 2.0 06/25/16 07:00 97.0 70 20 137/79 Nasal Cannula 2.0 06/25/16 03:45 Nasal Cannula 2.0 06/25/16 03:45 97.0 72 22 140/81 92 Nasal Cannula 2.0 06/25/16 00:00 97.2 72 21 138/79 95 Nasal Cannula 2.0 06/24/16 20:00 98.1 84 16 134/79 94 Room Air 06/24/16 19:27 84 18 Nasal Cannula 2.0 28 06/24/16 19:26 Nasal Cannula 2.0 28 06/24/16 19:26 95 Nasal Cannula 2.0 28 Intake and Output 06/24/16 06/25/16 19:00 07:00 Intake Total 840 ml 75 ml Output Total 675 ml 1650 ml Balance 165 ml -1575 ml Intake Oral 840 ml IV Total 75 ml Output Urine Total 675 ml 550 ml Hemodialysis UF 1100 ml # Bowel Movements 1 Laboratory Tests Test 06/25/16 03:30 White Blood Count 16.3 K/UL (4.8-10.8) H Red Blood Count 4.11 M/UL (4.70-6.10) L Hemoglobin 12.0 G/DL (14.2-18.0) L Hematocrit 35.3 % (42.0-52.0) L Mean Corpuscular Volume 86 FL (80-99) Mean Corpuscular Hemoglobin 29.2 PG (27.0-31.0) Mean Corpuscular Hemoglobin Concent 33.9 G/DL (32.0-36.0) Red Cell Distribution Width 11.3 % (11.6-14.8) L Platelet Count 477 K/UL (150-450) H Mean Platelet Volume 6.9 FL (6.5-10.1) Neutrophils (%) (Auto) % (45.0-75.0) Lymphocytes (%) (Auto) % (20.0-45.0) Monocytes (%) (Auto) % (1.0-10.0) Eosinophils (%) (Auto) % (0.0-3.0) Basophils (%) (Auto) % (0.0-2.0) Differential Total Cells Counted 100 Neutrophils % (Manual) 88 % (45-75) H Lymphocytes % (Manual) 7 % (20-45) L Monocytes % (Manual) 4 % (1-10) Eosinophils % (Manual) 1 % (0-3) Basophils % (Manual) 0 % (0-2) Band Neutrophils 0 % (0-8) Platelet Estimate Increased H Platelet Morphology Normal Red Blood Cell Morphology Normal Sodium Level 136 mEQ/L (135-145) Potassium Level 3.7 mEQ/L (3.4-4.9) Chloride Level 91 mEQ/L (98-107) L Carbon Dioxide Level 27 mEQ/L (20-30) Anion Gap 18 (5-15) H Blood Urea Nitrogen 78 mg/dL (7-23) H Creatinine 6.3 mg/dL (0.7-1.2) H Estimat Glomerular Filtration Rate 10.1 mL/min (>60) Glucose Level 138 mg/dL (74-106) H Uric Acid 13.1 mg/dL (3.0-7.5) H Calcium Level 8.7 mg/dL (8.6-10.2) Phosphorus Level 6.7 mg/dL (2.5-4.8) H Magnesium Level 2.4 mg/dL (1.7-2.5) Total Bilirubin 0.3 mg/dL (0.0-1.2) Aspartate Amino Transf (AST/SGOT) 17 U/L (5-40) Alanine Aminotransferase (ALT/SGPT) 13 U/L (3-41) Alkaline Phosphatase 50 U/L (40-129) C-Reactive Protein, Quantitative 3.3 mg/dL (< 0.5) H Total Protein 6.5 g/dL (6.6-8.7) L Albumin 2.9 g/dL (3.5-5.2) L Globulin 3.6 g/dL Albumin/Globulin Ratio 0.8 (1.0-2.7) L Objective NECK: Shows no JVD. LUNGS: Coarse rhonchi. CARDIOVASCULAR: Shows regular S1 and S2 with no gallop or murmur. ABDOMEN: Soft. EXTREMITIES: No pitting edema. JOHN PENA Jun 25, 2016 17:50
[2016-06-25] MEDS: Cefepime HCl 500 MG in D5W 55 ML IV SCH (21:43)
[2016-06-26] VITALS: BP 141/68
[2016-06-26 04:00] VITALS: BP 137/77
[2016-06-26] MEDS: metroNIDAZOLE 500mg tab ORAL SCH ×3 (05:49→21:05)
[2016-06-26 08:00] VITALS: BP 135/74
[2016-06-26 08:07] LABS: BASOPHILS % (AUTO) 3.6 % (0.0-2.0); EOSINOPHILS % (AUTO) 0.4 % (0.0-3.0); LYMPHOCYTES % (AUTO) 9.9 % (20.0-45.0); MEAN CORPUSCULAR HEMOGLOBIN 28.7 PG (27.0-31.0); MEAN CORPUSCULAR HGB CONC 32.7 G/DL (32.0-36.0); MEAN CORPUSCULAR VOLUME 88 FL (80-99); MEAN PLATELET VOLUME 6.4 FL (6.5-10.1); NEUTROPHILS % (AUTO) 77.1 % (45.0-75.0); PLATELET COUNT 436 K/UL (150-450); RED BLOOD COUNT 4.19 M/UL (4.70-6.10); RED CELL DISTRIBUTION WIDTH 11.1 % (11.6-14.8)
[2016-06-26] MEDS: Heparin 5000 units/ml inj SUBQ SCH ×2 (08:45→21:09)
[2016-06-26 08:53] LABS: ALBUMIN/GLOBULIN RATIO 0.7 (1.0-2.7); CALCIUM 8.2 mg/dL (8.6-10.2); CREATININE 4.3 mg/dL (0.7-1.2); GLOMERULAR FILTRATION RATE 15.6 mL/min (>60); MAGNESIUM 2.1 mg/dL (1.7-2.5); PHOSPHORUS 4.8 mg/dL (2.5-4.8); POTASSIUM 3.5 mEQ/L (3.4-4.9); TOTAL PROTEIN 5.9 g/dL (6.6-8.7)
--- NOTE | 2016-06-26 09:13 | General Progress Note ---
Assessment/Plan Assessment/Plan ASSESSMENT: 1. Leukocytosis - better, due to underlying Histoplasmosis pneumonia as well as steriods 2. Anemia secondary to chronic disease. 3. Decreased hemoglobin and hematocrit, rule out gastrointestinal bleed. 4. Nausea and vomiting - now improved 5. Community-acquired pneumonia on chest x-ray, is on linezolid and cefepime. 6. Eosinophilia history that is resolved. 7. Acute kidney injury - on HD, monitoring per renal RECOMMENDATIONS: 1. Monitor counts and maintain hgb >7 2. Monitor wbc counts 3. Followup on renal, ID, CC notes 4. Anemia w/u has been reviewed 5. Repeat smear reviewed 6. DVT prophylaxis with heparin sq 7. GI prophylaxis as needed. 8. staff Thank you, Brigid Winston MD Subjective Constitutional: Reports: no symptoms HEENT: Reports: no symptoms Cardiovascular: Reports: no symptoms Respiratory: Reports: no symptoms Gastrointestinal/Abdominal: Reports: poor appetite Genitourinary: Reports: no symptoms Neurologic/Psychiatric: Reports: no symptoms Endocrine: Reports: no symptoms Hematologic/Lymphatic: Reports: anemia Allergies: Coded Allergies: PIPERACILLIN (Verified Adverse Reaction, Intermediate, 06/20/16) pt developed diffuse macular rash per ER MD notes. unclear if due to vanco or zosyn TAZOBACTAM (Verified Adverse Reaction, Intermediate, 06/20/16) pt developed diffuse macular rash per ER MD notes. unclear if due to vanco or zosyn VANCOMYCIN (Verified Adverse Reaction, Intermediate, 06/20/16) pt developed diffuse macular rash per ER MD notes. unclear if due to vanco or zosyn Subjective stable, no bleeding reported, no fevers or chills either Objective Last 24 Hour Vital Signs Date Time Temp Pulse Resp B/P Pulse Ox O2 Delivery O2 Flow Rate FiO2 06/26/16 04:00 97.2 82 19 137/77 95 Nasal Cannula 06/26/16 00:00 97.2 77 21 141/68 97 Nasal Cannula 2.0 06/25/16 20:25 Nasal Cannula 2.0 28 06/25/16 20:25 96 Nasal Cannula 2.0 28 06/25/16 20:25 78 20 Nasal Cannula 2.0 28 06/25/16 20:00 97.5 84 15 126/70 95 Room Air 06/25/16 16:00 97.5 76 16 109/68 96 Room Air 06/25/16 12:00 96.3 75 20 122/64 96 Nasal Cannula 2.0 Intake and Output 06/25/16 06/26/16 19:00 07:00 Intake Total 830 ml 525 ml Output Total 500 ml Balance 830 ml 25 ml Intake Oral 380 ml IV Total 450 ml 525 ml Output Urine Total 500 ml # Voids 2 3 # Bowel Movements 1 Laboratory Tests 06/26/16 02:00: Urine Eosinophils [Pending] 06/26/16 06:40: White Blood Count 15.0H, Red Blood Count 4.19L, Hemoglobin 12.0L, Hematocrit 36.8L, Mean Corpuscular Volume 88, Mean Corpuscular Hemoglobin 28.7, Mean Corpuscular Hemoglobin Concent 32.7, Red Cell Distribution Width 11.1L, Platelet Count 436, Mean Platelet Volume 6.4L, Neutrophils (%) (Auto) 77.1H, Lymphocytes (%) (Auto) 9.9L, Monocytes (%) (Auto) 9.0, Eosinophils (%) (Auto) 0.4, Basophils (%) (Auto) 3.6H, Sodium Level 136, Potassium Level 3.5, Chloride Level 94L, Carbon Dioxide Level 25, Anion Gap 17H, Blood Urea Nitrogen 69H, Creatinine 4.3H, Estimat Glomerular Filtration Rate 15.6, Glucose Level 93, Uric Acid [Pending], Calcium Level 8.2L, Phosphorus Level 4.8, Magnesium Level 2.1, Total Bilirubin 0.5, Aspartate Amino Transf (AST/SGOT) 15, Alanine Aminotransferase (ALT/SGPT) 12, Alkaline Phosphatase 41, C-Reactive Protein, Quantitative [Pending], Pro-B-Type Natriuretic Peptide [Pending], Total Protein 5.9L, Albumin 2.6L, Globulin 3.3, Albumin/Globulin Ratio 0.7L Height (Feet): 5 Height (Inches): 5.00 Weight (Pounds): 170 General Appearance: WD/WN EENT: TMs normal Neck: supple Cardiovascular: regular rhythm Respiratory/Chest: normal breath sounds Abdomen: soft Extremities: non-tender Edema: 1+ Leg (L), 1+ Leg (R) Edema: mild edema Neurologic: alert Skin: warm/dry BRIGID WINSTON Jun 26, 2016 09:13
[2016-06-26 09:14] LABS: CRP QUANT 1.6 mg/dL (< 0.5); URIC ACID 10.6 mg/dL (3.0-7.5)
--- NOTE | 2016-06-26 09:24 | Pulmonology Progress Note ---
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 Thoracic surgery Not amenable to percutaneous catheter drainage. New multifocal parenchymal airspace opacities suspicious for disseminated pneumonia CXR 06/23- suspected infiltrate versus atelectasis at the right lung base. sputum cx, blood cx, influenza screen - all negative abx and Itraconazole ID follows antitussive prn fup with CXR in am renal US negative, no hydro nephro follows urine + eosinophils, nephro favoring allergic cause of ARF over infectious on steroids x 5 days ( per nephro) HD as per nephro monitor renal parameters , lytes ( creat trending down) DVT, GI prophylaxis case discussed and evaluated by supervising physician Subjective Allergies: Coded Allergies: PIPERACILLIN (Verified Adverse Reaction, Intermediate, 06/20/16) pt developed diffuse macular rash per ER MD notes. unclear if due to vanco or zosyn TAZOBACTAM (Verified Adverse Reaction, Intermediate, 06/20/16) pt developed diffuse macular rash per ER MD notes. unclear if due to vanco or zosyn VANCOMYCIN (Verified Adverse Reaction, Intermediate, 06/20/16) pt developed diffuse macular rash per ER MD notes. unclear if due to vanco or zosyn Subjective on [facility] floor reports feeling better no respiratory distress on O2 via NV, sat stable; denies SOB, admits to cough and chest pain with deep breathing afebrile, leukocytosis with trend down creat trending down to 4.3 Objective Last 24 Hour Vital Signs Date Time Temp Pulse Resp B/P Pulse Ox O2 Delivery O2 Flow Rate FiO2 06/26/16 04:00 97.2 82 19 137/77 95 Nasal Cannula 06/26/16 00:00 97.2 77 21 141/68 97 Nasal Cannula 2.0 06/25/16 20:25 Nasal Cannula 2.0 28 06/25/16 20:25 96 Nasal Cannula 2.0 28 06/25/16 20:25 78 20 Nasal Cannula 2.0 28 06/25/16 20:00 97.5 84 15 126/70 95 Room Air 06/25/16 16:00 97.5 76 16 109/68 96 Room Air 06/25/16 12:00 96.3 75 20 122/64 96 Nasal Cannula 2.0 Intake and Output 06/25/16 06/26/16 19:00 07:00 Intake Total 830 ml 525 ml Output Total 500 ml Balance 830 ml 25 ml Intake Oral 380 ml IV Total 450 ml 525 ml Output Urine Total 500 ml # Voids 2 3 # Bowel Movements 1 Objective General Appearance: WD/WN, no acute distress HEENT: normocephalic, atraumatic, anicteric, mucous membranes moist, O2 via NC Respiratory/Chest: lungs clear - with decreased BS on the right , no respiratory distress, no accessory muscle use, RIJ HD catheter Cardiovascular: normal rate, regular rhythm Abdomen: soft, non tender, non distended Genitourinary: normal external genitalia Extremities: no edema Neurologic/Psychiatric: no motor/sensory deficits, alert, oriented x 3, responsive Musculoskeletal: normal muscle bulk Laboratory Tests 06/26/16 02:00: Urine Eosinophils [Pending] 06/26/16 06:40: White Blood Count 15.0H, Red Blood Count 4.19L, Hemoglobin 12.0L, Hematocrit 36.8L, Mean Corpuscular Volume 88, Mean Corpuscular Hemoglobin 28.7, Mean Corpuscular Hemoglobin Concent 32.7, Red Cell Distribution Width 11.1L, Platelet Count 436, Mean Platelet Volume 6.4L, Neutrophils (%) (Auto) 77.1H, Lymphocytes (%) (Auto) 9.9L, Monocytes (%) (Auto) 9.0, Eosinophils (%) (Auto) 0.4, Basophils (%) (Auto) 3.6H, Sodium Level 136, Potassium Level 3.5, Chloride Level 94L, Carbon Dioxide Level 25, Anion Gap 17H, Blood Urea Nitrogen 69H, Creatinine 4.3H, Estimat Glomerular Filtration Rate 15.6, Glucose Level 93, Uric Acid 10.6H, Calcium Level 8.2L, Phosphorus Level 4.8, Magnesium Level 2.1, Total Bilirubin 0.5, Aspartate Amino Transf (AST/SGOT) 15, Alanine Aminotransferase (ALT/SGPT) 12, Alkaline Phosphatase 41, C-Reactive Protein, Quantitative 1.6H, Pro-B-Type Natriuretic Peptide [Pending], Total Protein 5.9L , Albumin 2.6L, Globulin 3.3, Albumin/Globulin Ratio 0.7L Current Medications Medications (Trade) Dose Ordered Sig/Keila Route PRN Reason Start Time Stop Time Status Last Admin Dose Admin Acetaminophen (Tylenol) 650 mg Q4H PRN ORAL fever 06/23/16 21:00 07/23/16 20:59 Albuterol/ Ipratropium (DuoNeb 0.5-3(2.5)mg/3ml) 3 ml Q4HRT PRN HHN Shortness of Breath 06/23/16 19:00 06/28/16 18:59 Cefepime HCl/ Dextrose (Maxipime/D5W) 55 ml @ 110 mls/hr Q24H IV 06/23/16 21:00 06/30/16 20:59 06/25/16 21:43 Clonidine HCl (Catapres) 0.1 mg Q4H PRN ORAL BP over 170 syst 06/23/16 21:00 07/23/16 20:59 Heparin Sodium (Porcine) (Heparin 5000 units/ml) 5,000 units EVERY 12 HOURS SUBQ 06/23/16 21:00 07/23/16 20:59 06/26/16 08:45 Itraconazole (Sporanox) 200 mg Q12HR ORAL 06/23/16 21:00 06/30/16 20:59 06/26/16 08:41 Linezolid (Zyvox) 600 mg Q12HR ORAL 06/23/16 21:00 06/28/16 20:59 06/26/16 08:41 Metronidazole (Flagyl) 500 mg Q8HR ORAL 06/23/16 22:00 06/30/16 21:59 06/26/16 05:49 Nitroglycerin (Ntg) 0.4 mg Q5MIN X3 PRN SL Prn Chest Pain 06/23/16 18:15 07/23/16 18:14 Ondansetron HCl (Zofran) 4 mg Q6H PRN IVP Nausea & Vomiting 06/23/16 19:00 07/23/16 18:59 Polyethylene Glycol (Miralax) 17 gm DAILYPRN PRN ORAL Constipation 06/24/16 13:00 07/24/16 12:59 Promethazine HCl/ Codeine (Phenergan with Codeine) 5 ml Q4H PRN ORAL For Cough 06/23/16 21:00 07/23/16 20:59 06/24/16 22:49 Ranitidine HCl 150 mg 150 mg BEDTIME ORAL 06/24/16 21:00 07/24/16 20:59 06/25/16 21:44 Sevelamer Carbonate (Renvela) 1,600 mg TIAC ORAL 06/25/16 16:30 07/25/16 16:29 06/26/16 05:50 Sodium Chloride (0.45% NS 1000ml) 1,000 ml @ 75 mls/hr [id number] IV 06/24/16 11:45 07/24/16 11:44 06/26/16 03:03 Temazepam 15 mg 15 mg HSPRN PRN ORAL Insomnia 06/23/16 21:00 06/30/16 20:59 06/23/16 22:20 Garth ([facility])Yanci NP Jun 26, 2016 09:24
[2016-06-26] MEDS ORDERED: DuoNeb 0.5-3(2.5)mg/3ml neb HHN PRN (09:30)
--- NOTE | 2016-06-26 11:14 | General Progress Note ---
Assessment/Plan Status: stable Assessment/Plan Status: Acute renal failure ( Allergic vs Sepsis) Urine positive for Eosinophils leading to Allergic etiology Other: 1) Lung abscess (2) Pneumonia (3) HTN (hypertension) (4) Adverse reaction to antibiotic (5) Pleurisy (6) HCAP (healthcare-associated pneumonia) Plan: Solumedrol daily - 5 days done monitor renal parameters- On Phos binders- DC sosa HD last 06/25 Slow hydrate Subjective ROS Limited/Unobtainable: No Allergies: Coded Allergies: PIPERACILLIN (Verified Adverse Reaction, Intermediate, 06/20/16) pt developed diffuse macular rash per ER MD notes. unclear if due to vanco or zosyn TAZOBACTAM (Verified Adverse Reaction, Intermediate, 06/20/16) pt developed diffuse macular rash per ER MD notes. unclear if due to vanco or zosyn VANCOMYCIN (Verified Adverse Reaction, Intermediate, 06/20/16) pt developed diffuse macular rash per ER MD notes. unclear if due to vanco or zosyn Objective Last 24 Hour Vital Signs Date Time Temp Pulse Resp B/P Pulse Ox O2 Delivery O2 Flow Rate FiO2 06/26/16 09:46 98 18 Room Air 21 06/26/16 09:46 Room Air 21 06/26/16 09:46 97 Room Air 21 06/26/16 08:00 96.8 83 20 135/74 96 Room Air 06/26/16 04:00 97.2 82 19 137/77 95 Nasal Cannula 06/26/16 00:00 97.2 77 21 141/68 97 Nasal Cannula 2.0 06/25/16 20:25 Nasal Cannula 2.0 28 06/25/16 20:25 96 Nasal Cannula 2.0 28 06/25/16 20:25 78 20 Nasal Cannula 2.0 28 06/25/16 20:00 97.5 84 15 126/70 95 Room Air 06/25/16 16:00 97.5 76 16 109/68 96 Room Air 06/25/16 12:00 96.3 75 20 122/64 96 Nasal Cannula 2.0 Intake and Output 06/25/16 06/26/16 18:59 06:59 Intake Total 905 ml 525 ml Output Total 1100 ml 500 ml Balance -195 ml 25 ml Intake Oral 380 ml IV Total 525 ml 525 ml Output Urine Total 500 ml Hemodialysis UF 1100 ml # Voids 2 3 # Bowel Movements 1 Laboratory Tests 06/26/16 02:00: Urine Eosinophils [Pending] 06/26/16 06:40: White Blood Count 15.0H, Red Blood Count 4.19L, Hemoglobin 12.0L, Hematocrit 36.8L, Mean Corpuscular Volume 88, Mean Corpuscular Hemoglobin 28.7, Mean Corpuscular Hemoglobin Concent 32.7, Red Cell Distribution Width 11.1L, Platelet Count 436, Mean Platelet Volume 6.4L, Neutrophils (%) (Auto) 77.1H, Lymphocytes (%) (Auto) 9.9L, Monocytes (%) (Auto) 9.0, Eosinophils (%) (Auto) 0.4, Basophils (%) (Auto) 3.6H, Sodium Level 136, Potassium Level 3.5, Chloride Level 94L, Carbon Dioxide Level 25, Anion Gap 17H, Blood Urea Nitrogen 69H, Creatinine 4.3H, Estimat Glomerular Filtration Rate 15.6, Glucose Level 93, Uric Acid 10.6H, Calcium Level 8.2L, Phosphorus Level 4.8, Magnesium Level 2.1, Total Bilirubin 0.5, Aspartate Amino Transf (AST/SGOT) 15, Alanine Aminotransferase (ALT/SGPT) 12, Alkaline Phosphatase 41, C-Reactive Protein, Quantitative 1.6H, Pro-B-Type Natriuretic Peptide 481H, Total Protein 5.9L, Albumin 2.6L, Globulin 3.3, Albumin/Globulin Ratio 0.7L Height (Feet): 5 Height (Inches): 5.00 Weight (Pounds): 170 General Appearance: no apparent distress Objective PE no change MILA GARCIA Jun 26, 2016 11:14
--- NOTE | 2016-06-26 11:45 | Diagnostic Imaging Report ---
Indication:pleural effusion Technique: Grayscale and duplex Doppler imaging of the chest performed. Comparison: None Findings: No significant pleural effusion was demonstrated bilaterally. Impression: No significant pleural effusion. Thoracentesis was canceled.
--- NOTE | 2016-06-26 11:46 | General Progress Note ---
Assessment/Plan Problem List: (1) Histoplasmosis pneumonia ICD Codes: B39.2 - Pulmonary histoplasmosis capsulati, unspecified SNOMED: 152035397 (2) Vomiting ICD Codes: R11.10 - Vomiting, unspecified SNOMED: 962639301 (3) Adverse reaction to antibiotic ICD Codes: T36.95XA - Adverse effect of unspecified systemic antibiotic, initial encounter SNOMED: 046347355, 712347666 Qualifiers: Qualified Codes: T36.95XA - Adverse effect of unspecified systemic antibiotic, initial encounter (4) Cavitary lung disease ICD Codes: J98.4 - Other disorders of lung SNOMED: 32354251 (5) Pneumonia ICD Codes: J18.9 - Pneumonia, unspecified organism SNOMED: 230783898 (6) HTN (hypertension) ICD Codes: I10 - Essential (primary) hypertension SNOMED: 99923481 Qualifiers: Qualified Codes: I10 - Essential (primary) hypertension (7) Hyperlipidemia, mixed ICD Codes: E78.2 - Mixed hyperlipidemia SNOMED: 429128872 (8) Pleurisy ICD Codes: R09.1 - Pleurisy SNOMED: 028479062 Status: progressing Assessment/Plan afebrile pna vitals stable pna improving no wheezing reviewed chart and labs Subjective ROS Limited/Unobtainable: Yes Allergies: Coded Allergies: PIPERACILLIN (Verified Adverse Reaction, Intermediate, 06/20/16) pt developed diffuse macular rash per ER MD notes. unclear if due to vanco or zosyn TAZOBACTAM (Verified Adverse Reaction, Intermediate, 06/20/16) pt developed diffuse macular rash per ER MD notes. unclear if due to vanco or zosyn VANCOMYCIN (Verified Adverse Reaction, Intermediate, 06/20/16) pt developed diffuse macular rash per ER MD notes. unclear if due to vanco or zosyn Objective Last 24 Hour Vital Signs Date Time Temp Pulse Resp B/P Pulse Ox O2 Delivery O2 Flow Rate FiO2 06/26/16 09:46 98 18 Room Air 21 06/26/16 09:46 Room Air 21 06/26/16 09:46 97 Room Air 21 06/26/16 08:00 96.8 83 20 135/74 96 Room Air 06/26/16 04:00 97.2 82 19 137/77 95 Nasal Cannula 06/26/16 00:00 97.2 77 21 141/68 97 Nasal Cannula 2.0 06/25/16 20:25 Nasal Cannula 2.0 28 06/25/16 20:25 96 Nasal Cannula 2.0 28 06/25/16 20:25 78 20 Nasal Cannula 2.0 28 06/25/16 20:00 97.5 84 15 126/70 95 Room Air 06/25/16 16:00 97.5 76 16 109/68 96 Room Air 06/25/16 12:00 96.3 75 20 122/64 96 Nasal Cannula 2.0 Intake and Output 06/25/16 06/26/16 19:00 07:00 Intake Total 830 ml 525 ml Output Total 500 ml Balance 830 ml 25 ml Intake Oral 380 ml IV Total 450 ml 525 ml Output Urine Total 500 ml # Voids 2 3 # Bowel Movements 1 Laboratory Tests 06/26/16 02:00: Urine Eosinophils None seen 06/26/16 06:40: White Blood Count 15.0H, Red Blood Count 4.19L, Hemoglobin 12.0L, Hematocrit 36.8L, Mean Corpuscular Volume 88, Mean Corpuscular Hemoglobin 28.7, Mean Corpuscular Hemoglobin Concent 32.7, Red Cell Distribution Width 11.1L, Platelet Count 436, Mean Platelet Volume 6.4L, Neutrophils (%) (Auto) 77.1H, Lymphocytes (%) (Auto) 9.9L, Monocytes (%) (Auto) 9.0, Eosinophils (%) (Auto) 0.4, Basophils (%) (Auto) 3.6H, Sodium Level 136, Potassium Level 3.5, Chloride Level 94L, Carbon Dioxide Level 25, Anion Gap 17H, Blood Urea Nitrogen 69H, Creatinine 4.3H, Estimat Glomerular Filtration Rate 15.6, Glucose Level 93, Uric Acid 10.6H, Calcium Level 8.2L, Phosphorus Level 4.8, Magnesium Level 2.1, Total Bilirubin 0.5, Aspartate Amino Transf (AST/SGOT) 15, Alanine Aminotransferase (ALT/SGPT) 12, Alkaline Phosphatase 41, C-Reactive Protein, Quantitative 1.6H, Pro-B-Type Natriuretic Peptide 481H, Total Protein 5.9L, Albumin 2.6L, Globulin 3.3, Albumin/Globulin Ratio 0.7L Height (Feet): 5 Height (Inches): 5.00 Weight (Pounds): 170 EENT: PERRL/EOMI Neck: supple Cardiovascular: normal rate Respiratory/Chest: lungs clear Abdomen: soft Jesse Dean MD Jun 26, 2016 11:46
--- NOTE | 2016-06-26 11:50 | General Progress Note ---
Assessment/Plan Problem List: (1) Histoplasmosis pneumonia ICD Codes: B39.2 - Pulmonary histoplasmosis capsulati, unspecified SNOMED: 157283008 (2) Vomiting ICD Codes: R11.10 - Vomiting, unspecified SNOMED: 826392316 (3) Adverse reaction to antibiotic ICD Codes: T36.95XA - Adverse effect of unspecified systemic antibiotic, initial encounter SNOMED: 246131560, 904653176 Qualifiers: Qualified Codes: T36.95XA - Adverse effect of unspecified systemic antibiotic, initial encounter (4) Cavitary lung disease ICD Codes: J98.4 - Other disorders of lung SNOMED: 34311659 (5) Pneumonia ICD Codes: J18.9 - Pneumonia, unspecified organism SNOMED: 104537381 (6) HTN (hypertension) ICD Codes: I10 - Essential (primary) hypertension SNOMED: 03087724 Qualifiers: Qualified Codes: I10 - Essential (primary) hypertension (7) Hyperlipidemia, mixed ICD Codes: E78.2 - Mixed hyperlipidemia SNOMED: 985417470 (8) Pleurisy ICD Codes: R09.1 - Pleurisy SNOMED: 901018156 Status: progressing Assessment/Plan pna afebrile no wheezing vitals stable reviewed chart and labs Subjective ROS Limited/Unobtainable: Yes Allergies: Coded Allergies: PIPERACILLIN (Verified Adverse Reaction, Intermediate, 06/20/16) pt developed diffuse macular rash per ER MD notes. unclear if due to vanco or zosyn TAZOBACTAM (Verified Adverse Reaction, Intermediate, 06/20/16) pt developed diffuse macular rash per ER MD notes. unclear if due to vanco or zosyn VANCOMYCIN (Verified Adverse Reaction, Intermediate, 06/20/16) pt developed diffuse macular rash per ER MD notes. unclear if due to vanco or zosyn Objective Last 24 Hour Vital Signs Date Time Temp Pulse Resp B/P Pulse Ox O2 Delivery O2 Flow Rate FiO2 06/26/16 09:46 98 18 Room Air 21 06/26/16 09:46 Room Air 21 06/26/16 09:46 97 Room Air 21 06/26/16 08:00 96.8 83 20 135/74 96 Room Air 06/26/16 04:00 97.2 82 19 137/77 95 Nasal Cannula 06/26/16 00:00 97.2 77 21 141/68 97 Nasal Cannula 2.0 1/21/17 20:25 Nasal Cannula 2.0 28 06/25/16 20:25 96 Nasal Cannula 2.0 28 06/25/16 20:25 78 20 Nasal Cannula 2.0 28 06/25/16 20:00 97.5 84 15 126/70 95 Room Air 06/25/16 16:00 97.5 76 16 109/68 96 Room Air 06/25/16 12:00 96.3 75 20 122/64 96 Nasal Cannula 2.0 Intake and Output 06/25/16 06/26/16 19:00 07:00 Intake Total 830 ml 525 ml Output Total 500 ml Balance 830 ml 25 ml Intake Oral 380 ml IV Total 450 ml 525 ml Output Urine Total 500 ml # Voids 2 3 # Bowel Movements 1 Laboratory Tests 06/26/16 02:00: Urine Eosinophils None seen 06/26/16 06:40: White Blood Count 15.0H, Red Blood Count 4.19L, Hemoglobin 12.0L, Hematocrit 36.8L, Mean Corpuscular Volume 88, Mean Corpuscular Hemoglobin 28.7, Mean Corpuscular Hemoglobin Concent 32.7, Red Cell Distribution Width 11.1L, Platelet Count 436, Mean Platelet Volume 6.4L, Neutrophils (%) (Auto) 77.1H, Lymphocytes (%) (Auto) 9.9L, Monocytes (%) (Auto) 9.0, Eosinophils (%) (Auto) 0.4, Basophils (%) (Auto) 3.6H, Sodium Level 136, Potassium Level 3.5, Chloride Level 94L, Carbon Dioxide Level 25, Anion Gap 17H, Blood Urea Nitrogen 69H, Creatinine 4.3H, Estimat Glomerular Filtration Rate 15.6, Glucose Level 93, Uric Acid 10.6H, Calcium Level 8.2L, Phosphorus Level 4.8, Magnesium Level 2.1, Total Bilirubin 0.5, Aspartate Amino Transf (AST/SGOT) 15, Alanine Aminotransferase (ALT/SGPT) 12, Alkaline Phosphatase 41, C-Reactive Protein, Quantitative 1.6H, Pro-B-Type Natriuretic Peptide 481H, Total Protein 5.9L, Albumin 2.6L, Globulin 3.3, Albumin/Globulin Ratio 0.7L Height (Feet): 5 Height (Inches): 5.00 Weight (Pounds): 170 EENT: PERRL/EOMI Neck: supple Cardiovascular: normal rate Respiratory/Chest: lungs clear Abdomen: soft Jesse Dean MD Jun 26, 2016 11:50
[2016-06-26 12:00] VITALS: BP 131/85
[2016-06-26] MEDS: Promethazine/Codeine 5ml UD ORAL PRN ×2 (12:25→21:05)
[2016-06-26] MEDS ORDERED: Tubing IV Secondary IV ONE (15:18)
[2016-06-26] MEDS ORDERED: NS 275ml ONE (15:18)
[2016-06-26] MEDS ORDERED: 1/2 NS 1000ml IV ONE (15:18)
[2016-06-26 16:00] VITALS: BP 133/96
--- NOTE | 2016-06-26 16:05 | Infectious Diseases Prog Note ---
Assessment/Plan Problems: (1) Lung abscess Assessment & Plan: continue zyvox, cefepime and flagyl for 4 weeks , recommend to repeat CT scan of the chest in 4 weeks for follow up, pulmonary is following , sputum culture showed normal keo so far. (2) HCAP (healthcare-associated pneumonia) Assessment & Plan: improving, continue zyvox , and cefepime empirically, sputum and blood culture are negative so far , had allergic reaction to either vancomycin or zosyn, most likely vancomycin with red man syndrome, will avoid for now. (3) Adverse reaction to antibiotic Assessment & Plan: unclear whether due to vancomycin VS zosyn , most likely vancomycin since it happened fast after infusion, suspect red man syndrome, will check blood eosinophils counts in blood. avoid both classes of antibiotics for now, ok to use cephalosporins since he received it last admission with no reaction (4) Histoplasmosis pneumonia Assessment & Plan: continue itraconazole, monitor LFT (5) LISET (acute kidney injury) Assessment & Plan: had HD cath placed by renal, and started on HD, avoid nephrotoxic meds. (6) Leukocytosis Assessment & Plan: due to steroids , now improving after D/C, since there is no benefit of steroids in this case Subjective Constitutional: Reports: anorexia Respiratory: Reports: productive cough Allergies: Coded Allergies: PIPERACILLIN (Verified Adverse Reaction, Intermediate, 06/20/16) pt developed diffuse macular rash per ER MD notes. unclear if due to vanco or zosyn TAZOBACTAM (Verified Adverse Reaction, Intermediate, 06/20/16) pt developed diffuse macular rash per ER MD notes. unclear if due to vanco or zosyn VANCOMYCIN (Verified Adverse Reaction, Intermediate, 06/20/16) pt developed diffuse macular rash per ER MD notes. unclear if due to vanco or zosyn All Systems: reviewed and negative except above Subjective he was doing well today, still have productive cough with yellowish phlegm, no fever, or chills, no vomiting. no skin rash or hives, tolerated current antibiotics well. Objective Vital Signs Last 24 Hour Vital Signs Date Time Temp Pulse Resp B/P Pulse Ox O2 Delivery O2 Flow Rate FiO2 06/26/16 12:00 96.8 79 20 131/85 95 Room Air 06/26/16 09:46 98 18 Room Air 21 06/26/16 09:46 Room Air 21 06/26/16 09:46 97 Room Air 21 06/26/16 08:00 96.8 83 20 135/74 96 Room Air 06/26/16 04:00 97.2 82 19 137/77 95 Nasal Cannula 06/26/16 00:00 97.2 77 21 141/68 97 Nasal Cannula 2.0 06/25/16 20:25 Nasal Cannula 2.0 28 06/25/16 20:25 96 Nasal Cannula 2.0 28 06/25/16 20:25 78 20 Nasal Cannula 2.0 28 06/25/16 20:00 97.5 84 15 126/70 95 Room Air Height (Feet): 5 Height (Inches): 5.00 Weight (Pounds): 170 General Appearance: WD/WN, no acute distress HEENT: normocephalic, atraumatic, anicteric, mucous membranes moist, PERRL Respiratory/Chest: chest wall non-tender, normal breath sounds, no respiratory distress, no accessory muscle use, decreased breath sounds, crackles/rales Cardiovascular: normal peripheral pulses, normal rate, regular rhythm, no gallop/murmur, no JVD Abdomen: normal bowel sounds, soft, non tender, no organomegaly, non distended , no mass, no scars Extremities: no cyanosis, no clubbing Skin: no rash, no lesions, no ulcers Laboratory Tests Test 06/26/16 02:00 06/26/16 06:40 Urine Eosinophils None seen White Blood Count 15.0 K/UL (4.8-10.8) H Red Blood Count 4.19 M/UL (4.70-6.10) L Hemoglobin 12.0 G/DL (14.2-18.0) L Hematocrit 36.8 % (42.0-52.0) L Mean Corpuscular Volume 88 FL (80-99) Mean Corpuscular Hemoglobin 28.7 PG (27.0-31.0) Mean Corpuscular Hemoglobin Concent 32.7 G/DL (32.0-36.0) Red Cell Distribution Width 11.1 % (11.6-14.8) L Platelet Count 436 K/UL (150-450) Mean Platelet Volume 6.4 FL (6.5-10.1) L Neutrophils (%) (Auto) 77.1 % (45.0-75.0) H Lymphocytes (%) (Auto) 9.9 % (20.0-45.0) L Monocytes (%) (Auto) 9.0 % (1.0-10.0) Eosinophils (%) (Auto) 0.4 % (0.0-3.0) Basophils (%) (Auto) 3.6 % (0.0-2.0) H Sodium Level 136 mEQ/L (135-145) Potassium Level 3.5 mEQ/L (3.4-4.9) Chloride Level 94 mEQ/L (98-107) L Carbon Dioxide Level 25 mEQ/L (20-30) Anion Gap 17 (5-15) H Blood Urea Nitrogen 69 mg/dL (7-23) H Creatinine 4.3 mg/dL (0.7-1.2) H Estimat Glomerular Filtration Rate 15.6 mL/min (>60) Glucose Level 93 mg/dL (74-106) Uric Acid 10.6 mg/dL (3.0-7.5) H Calcium Level 8.2 mg/dL (8.6-10.2) L Phosphorus Level 4.8 mg/dL (2.5-4.8) Magnesium Level 2.1 mg/dL (1.7-2.5) Total Bilirubin 0.5 mg/dL (0.0-1.2) Aspartate Amino Transf (AST/SGOT) 15 U/L (5-40) Alanine Aminotransferase (ALT/SGPT) 12 U/L (3-41) Alkaline Phosphatase 41 U/L (40-129) C-Reactive Protein, Quantitative 1.6 mg/dL (< 0.5) H Pro-B-Type Natriuretic Peptide 481 pg/mL (0-125) H Total Protein 5.9 g/dL (6.6-8.7) L Albumin 2.6 g/dL (3.5-5.2) L Globulin 3.3 g/dL Albumin/Globulin Ratio 0.7 (1.0-2.7) L Current Medications Medications (Trade) Dose Ordered Sig/Keila Route PRN Reason Start Time Stop Time Status Last Admin Dose Admin Acetaminophen (Tylenol) 650 mg Q4H PRN ORAL fever 06/23/16 21:00 07/23/16 20:59 Albuterol/ Ipratropium (DuoNeb 0.5-3(2.5)mg/3ml) 3 ml Q4H PRN HHN Shortness of Breath 06/26/16 09:30 07/01/16 09:29 Cefepime HCl/ Dextrose (Maxipime/D5W) 55 ml @ 110 mls/hr Q24H IV 06/23/16 21:00 06/30/16 20:59 06/25/16 21:43 Clonidine HCl (Catapres) 0.1 mg Q4H PRN ORAL BP over 170 syst 06/23/16 21:00 07/23/16 20:59 Heparin Sodium (Porcine) (Heparin 5000 units/ml) 5,000 units EVERY 12 HOURS SUBQ 06/23/16 21:00 07/23/16 20:59 06/26/16 08:45 Itraconazole (Sporanox) 200 mg Q12HR ORAL 06/23/16 21:00 06/30/16 20:59 06/26/16 08:41 Linezolid (Zyvox) 600 mg Q12HR ORAL 06/23/16 21:00 06/28/16 20:59 06/26/16 08:41 Metronidazole (Flagyl) 500 mg Q8HR ORAL 06/23/16 22:00 06/30/16 21:59 06/26/16 14:50 Nitroglycerin (Ntg) 0.4 mg Q5MIN X3 PRN SL Prn Chest Pain 06/23/16 18:15 07/23/16 18:14 Ondansetron HCl (Zofran) 4 mg Q6H PRN IVP Nausea & Vomiting 06/23/16 19:00 07/23/16 18:59 Polyethylene Glycol (Miralax) 17 gm DAILYPRN PRN ORAL Constipation 06/24/16 13:00 07/24/16 12:59 Promethazine HCl/ Codeine (Phenergan with Codeine) 5 ml Q4H PRN ORAL For Cough 06/23/16 21:00 07/23/16 20:59 06/26/16 12:25 Ranitidine HCl 150 mg 150 mg BEDTIME ORAL 06/24/16 21:00 07/24/16 20:59 06/25/16 21:44 Sevelamer Carbonate (Renvela) 800 mg TIAC ORAL 06/26/16 11:30 07/26/16 11:29 06/26/16 12:21 Sodium Chloride (0.45% NS 1000ml) 1,000 ml @ 75 mls/hr [id number] IV 06/24/16 11:45 07/24/16 11:44 06/26/16 03:03 Temazepam 15 mg 15 mg HSPRN PRN ORAL Insomnia 06/23/16 21:00 06/30/16 20:59 06/23/16 22:20 Erin Navarrete M.D. Jun 26, 2016 16:05
[2016-06-26 20:00] VITALS: BP 138/76
[2016-06-26] MEDS: Cefepime HCl 500 MG in D5W 55 ML IV SCH (21:09)
[2016-06-27] VITALS: BP 133/86
[2016-06-27 04:00] VITALS: BP 147/88
[2016-06-27] MEDS: metroNIDAZOLE 500mg tab ORAL SCH ×3 (05:34→22:00)
[2016-06-27 07:31] LABS: BASOPHILS % (AUTO) 2.2 % (0.0-2.0); EOSINOPHILS % (AUTO) 3.3 % (0.0-3.0); LYMPHOCYTES % (AUTO) 10.7 % (20.0-45.0); MEAN CORPUSCULAR HGB CONC 32.7 G/DL (32.0-36.0); MEAN CORPUSCULAR VOLUME 89 FL (80-99); MEAN PLATELET VOLUME 6.1 FL (6.5-10.1); MONOCYTES % (AUTO) 7.4 % (1.0-10.0); NEUTROPHILS % (AUTO) 76.4 % (45.0-75.0); PLATELET COUNT 390 K/UL (150-450); RED CELL DISTRIBUTION WIDTH 11.3 % (11.6-14.8); WHITE BLOOD COUNT 14.1 K/UL (4.8-10.8)
[2016-06-27 08:00] VITALS: BP 143/83
[2016-06-27 08:03] LABS: CALCIUM 8.3 mg/dL (8.6-10.2); CREATININE 4.1 mg/dL (0.7-1.2); GLOMERULAR FILTRATION RATE 16.5 mL/min (>60); PHOSPHORUS 4.9 mg/dL (2.5-4.8); POTASSIUM 3.5 mEQ/L (3.4-4.9); TOTAL PROTEIN 5.7 g/dL (6.6-8.7); URIC ACID 11.9 mg/dL (3.0-7.5)
[2016-06-27] MEDS: Heparin 5000 units/ml inj SUBQ SCH ×2 (08:46→22:13)
[2016-06-27] MEDS: Promethazine/Codeine 5ml UD ORAL PRN ×2 (08:52→22:00)
--- NOTE | 2016-06-27 09:27 | General Progress Note ---
Assessment/Plan Status: stable Status Narrative Cr lower Assessment/Plan Status: Acute renal failure ( Allergic vs Sepsis) Urine positive for Eosinophils leading to Allergic etiology Other: 1) Lung abscess (2) Pneumonia (3) HTN (hypertension) (4) Adverse reaction to antibiotic (5) Pleurisy (6) HCAP (healthcare-associated pneumonia) Plan: monitor renal parameters- On Phos binders- DC sosa HD last 06/25, Cr lowering without HD Slow hydrate Subjective ROS Limited/Unobtainable: No Allergies: Coded Allergies: PIPERACILLIN (Verified Adverse Reaction, Intermediate, 06/20/16) pt developed diffuse macular rash per ER MD notes. unclear if due to vanco or zosyn TAZOBACTAM (Verified Adverse Reaction, Intermediate, 06/20/16) pt developed diffuse macular rash per ER MD notes. unclear if due to vanco or zosyn VANCOMYCIN (Verified Adverse Reaction, Intermediate, 06/20/16) pt developed diffuse macular rash per ER MD notes. unclear if due to vanco or zosyn Objective Last 24 Hour Vital Signs Date Time Temp Pulse Resp B/P Pulse Ox O2 Delivery O2 Flow Rate FiO2 06/27/16 09:10 94 Room Air 21 06/27/16 09:10 Room Air 21 06/27/16 09:09 82 18 Room Air 21 06/27/16 04:00 97.7 76 20 147/88 96 Room Air 06/27/16 00:00 97.7 76 20 133/86 95 Room Air 06/26/16 20:45 86 18 Room Air 06/26/16 20:45 Room Air 21 06/26/16 20:45 96 Room Air 21 06/26/16 20:00 96.6 85 20 138/76 95 Room Air 06/26/16 16:00 97.2 77 20 133/96 95 Room Air 06/26/16 12:00 96.8 79 20 131/85 95 Room Air 06/26/16 09:46 98 18 Room Air 06/26/16 09:46 Room Air 21 06/26/16 09:46 97 Room Air 21 Intake and Output 06/26/16 06/27/16 19:00 07:00 Intake Total 690 ml 1825 ml Balance 690 ml 1825 ml Intake Oral 240 ml 1300 ml IV Total 450 ml 525 ml # Voids 2 8 # Bowel Movements 2 Laboratory Tests 06/27/16 02:30: Urine Eosinophils None seen 06/27/16 05:10: White Blood Count 14.1H, Red Blood Count 4.10L, Hemoglobin 11.9L, Hematocrit 36.3L, Mean Corpuscular Volume 89, Mean Corpuscular Hemoglobin 29.0, Mean Corpuscular Hemoglobin Concent 32.7, Red Cell Distribution Width 11.3L, Platelet Count 390, Mean Platelet Volume 6.1L, Neutrophils (%) (Auto) 76.4H, Lymphocytes (%) (Auto) 10.7L, Monocytes (%) (Auto) 7.4, Eosinophils (%) (Auto) 3.3H, Basophils (%) (Auto) 2.2H, Sodium Level 141, Potassium Level 3.5, Chloride Level 97L, Carbon Dioxide Level 28, Anion Gap 16H, Blood Urea Nitrogen 75H, Creatinine 4.1H, Estimat Glomerular Filtration Rate 16.5, Glucose Level 85 , Uric Acid 11.9H, Calcium Level 8.3L, Phosphorus Level 4.9H, Total Bilirubin 0.3, Aspartate Amino Transf (AST/SGOT) 14, Alanine Aminotransferase (ALT/SGPT) 10, Alkaline Phosphatase 42, Total Protein 5.7L, Albumin 2.9L, Globulin 2.8, Albumin/Globulin Ratio 1.0 Height (Feet): 5 Height (Inches): 5.00 Weight (Pounds): 170 General Appearance: no apparent distress Objective PE no change MILA GARCIA Jun 27, 2016 09:27
[2016-06-27] MEDS: Allopurinol 100mg Tab ORAL SCH (11:51)
[2016-06-27 12:00] VITALS: BP 143/89
--- NOTE | 2016-06-27 14:15 | General Progress Note ---
Assessment/Plan Problem List: (1) Histoplasmosis pneumonia ICD Codes: B39.2 - Pulmonary histoplasmosis capsulati, unspecified SNOMED: 848441182 (2) Vomiting ICD Codes: R11.10 - Vomiting, unspecified SNOMED: 472866847 (3) Adverse reaction to antibiotic ICD Codes: T36.95XA - Adverse effect of unspecified systemic antibiotic, initial encounter SNOMED: 361724916, 397457724 Qualifiers: Qualified Codes: T36.95XA - Adverse effect of unspecified systemic antibiotic, initial encounter (4) Cavitary lung disease ICD Codes: J98.4 - Other disorders of lung SNOMED: 25608435 (5) Pneumonia ICD Codes: J18.9 - Pneumonia, unspecified organism SNOMED: 029706691 (6) HTN (hypertension) ICD Codes: I10 - Essential (primary) hypertension SNOMED: 61304926 Qualifiers: Qualified Codes: I10 - Essential (primary) hypertension (7) Hyperlipidemia, mixed ICD Codes: E78.2 - Mixed hyperlipidemia SNOMED: 631685205 (8) Pleurisy ICD Codes: R09.1 - Pleurisy SNOMED: 393378587 Status: progressing Assessment/Plan afebrile vitals stable asa pna improving reviewed chart and labs no wheezing Subjective ROS Limited/Unobtainable: Yes Constitutional: Reports: no symptoms Allergies: Coded Allergies: PIPERACILLIN (Verified Adverse Reaction, Intermediate, 06/20/16) pt developed diffuse macular rash per ER MD notes. unclear if due to vanco or zosyn TAZOBACTAM (Verified Adverse Reaction, Intermediate, 06/20/16) pt developed diffuse macular rash per ER MD notes. unclear if due to vanco or zosyn VANCOMYCIN (Verified Adverse Reaction, Intermediate, 06/20/16) pt developed diffuse macular rash per ER MD notes. unclear if due to vanco or zosyn Objective Last 24 Hour Vital Signs Date Time Temp Pulse Resp B/P Pulse Ox O2 Delivery O2 Flow Rate FiO2 06/27/16 12:00 97.2 20 143/89 95 Room Air 06/27/16 09:10 94 Room Air 21 06/27/16 09:10 Room Air 21 06/27/16 09:09 82 18 Room Air 21 06/27/16 08:00 97.3 80 20 143/83 97 Room Air 06/27/16 04:00 97.7 76 20 147/88 96 Room Air 06/27/16 00:00 97.7 76 20 133/86 95 Room Air 06/26/16 20:45 86 18 Room Air 06/26/16 20:45 Room Air 21 06/26/16 20:45 96 Room Air 21 06/26/16 20:00 96.6 85 20 138/76 95 Room Air 06/26/16 16:00 97.2 77 20 133/96 95 Room Air Intake and Output 06/26/16 06/27/16 19:00 07:00 Intake Total 690 ml 1825 ml Balance 690 ml 1825 ml Intake Oral 240 ml 1300 ml IV Total 450 ml 525 ml # Voids 2 8 # Bowel Movements 2 Laboratory Tests 06/27/16 02:30: Urine Eosinophils None seen 06/27/16 05:10: White Blood Count 14.1H, Red Blood Count 4.10L, Hemoglobin 11.9L, Hematocrit 36.3L, Mean Corpuscular Volume 89, Mean Corpuscular Hemoglobin 29.0, Mean Corpuscular Hemoglobin Concent 32.7, Red Cell Distribution Width 11.3L, Platelet Count 390, Mean Platelet Volume 6.1L, Neutrophils (%) (Auto) 76.4H, Lymphocytes (%) (Auto) 10.7L, Monocytes (%) (Auto) 7.4, Eosinophils (%) (Auto) 3.3H, Basophils (%) (Auto) 2.2H, Sodium Level 141, Potassium Level 3.5, Chloride Level 97L, Carbon Dioxide Level 28, Anion Gap 16H, Blood Urea Nitrogen 75H, Creatinine 4.1H, Estimat Glomerular Filtration Rate 16.5, Glucose Level 85 , Uric Acid 11.9H, Calcium Level 8.3L, Phosphorus Level 4.9H, Total Bilirubin 0.3, Aspartate Amino Transf (AST/SGOT) 14, Alanine Aminotransferase (ALT/SGPT) 10, Alkaline Phosphatase 42, Total Protein 5.7L, Albumin 2.9L, Globulin 2.8, Albumin/Globulin Ratio 1.0 Height (Feet): 5 Height (Inches): 5.00 Weight (Pounds): 170 EENT: PERRL/EOMI Neck: supple Cardiovascular: normal rate Respiratory/Chest: lungs clear Jesse Dean MD Jun 27, 2016 14:15
--- NOTE | 2016-06-27 15:33 | General Progress Note ---
Assessment/Plan Assessment/Plan ASSESSMENT: 1. Leukocytosis - better, due to underlying Histoplasmosis pneumonia as well as steriods 2. Anemia secondary to chronic disease. 3. Decreased hemoglobin and hematocrit, rule out gastrointestinal bleed. 4. Nausea and vomiting - now improved 5. Community-acquired pneumonia on chest x-ray, is on linezolid and cefepime. 6. Eosinophilia history that is resolved. 7. Acute kidney injury - on HD, monitoring per renal RECOMMENDATIONS: 1. Monitor counts and maintain hgb >7 2. Monitor wbc counts 3. Followup on renal, ID, CC notes 4. Anemia w/u has been reviewed 5. Repeat smear has been reviewed 6. DVT ppx with heparin sq 7. GI prophylaxis as needed. 8. staff Thank you, Gerry Winston MD Subjective Constitutional: Reports: no symptoms HEENT: Reports: no symptoms Cardiovascular: Reports: no symptoms Respiratory: Reports: no symptoms Gastrointestinal/Abdominal: Reports: no symptoms Genitourinary: Reports: no symptoms Neurologic/Psychiatric: Reports: no symptoms Endocrine: Reports: no symptoms Hematologic/Lymphatic: Reports: anemia Allergies: Coded Allergies: PIPERACILLIN (Verified Adverse Reaction, Intermediate, 06/20/16) pt developed diffuse macular rash per ER MD notes. unclear if due to vanco or zosyn TAZOBACTAM (Verified Adverse Reaction, Intermediate, 06/20/16) pt developed diffuse macular rash per ER MD notes. unclear if due to vanco or zosyn VANCOMYCIN (Verified Adverse Reaction, Intermediate, 06/20/16) pt developed diffuse macular rash per ER MD notes. unclear if due to vanco or zosyn Subjective stable, no bleeding, no complaints this am, looking forward to being off HD Objective Last 24 Hour Vital Signs Date Time Temp Pulse Resp B/P Pulse Ox O2 Delivery O2 Flow Rate FiO2 06/27/16 12:00 97.2 20 143/89 95 Room Air 06/27/16 09:10 94 Room Air 21 06/27/16 09:10 Room Air 21 06/27/16 09:09 82 18 Room Air 21 06/27/16 08:00 97.3 80 20 143/83 97 Room Air 06/27/16 04:00 97.7 76 20 147/88 96 Room Air 06/27/16 00:00 97.7 76 20 133/86 95 Room Air 06/26/16 20:45 86 18 Room Air 21 06/26/16 20:45 Room Air 21 06/26/16 20:45 96 Room Air 21 06/26/16 20:00 96.6 85 20 138/76 95 Room Air 06/26/16 16:00 97.2 77 20 133/96 95 Room Air Intake and Output 06/26/16 06/27/16 19:00 07:00 Intake Total 690 ml 1825 ml Balance 690 ml 1825 ml Intake Oral 240 ml 1300 ml IV Total 450 ml 525 ml # Voids 2 8 # Bowel Movements 2 Laboratory Tests 06/27/16 02:30: Urine Eosinophils None seen 06/27/16 05:10: White Blood Count 14.1H, Red Blood Count 4.10L, Hemoglobin 11.9L, Hematocrit 36.3L, Mean Corpuscular Volume 89, Mean Corpuscular Hemoglobin 29.0, Mean Corpuscular Hemoglobin Concent 32.7, Red Cell Distribution Width 11.3L, Platelet Count 390, Mean Platelet Volume 6.1L, Neutrophils (%) (Auto) 76.4H, Lymphocytes (%) (Auto) 10.7L, Monocytes (%) (Auto) 7.4, Eosinophils (%) (Auto) 3.3H, Basophils (%) (Auto) 2.2H, Sodium Level 141, Potassium Level 3.5, Chloride Level 97L, Carbon Dioxide Level 28, Anion Gap 16H, Blood Urea Nitrogen 75H, Creatinine 4.1H, Estimat Glomerular Filtration Rate 16.5, Glucose Level 85 , Uric Acid 11.9H, Calcium Level 8.3L, Phosphorus Level 4.9H, Total Bilirubin 0.3, Aspartate Amino Transf (AST/SGOT) 14, Alanine Aminotransferase (ALT/SGPT) 10, Alkaline Phosphatase 42, Total Protein 5.7L, Albumin 2.9L, Globulin 2.8, Albumin/Globulin Ratio 1.0 Height (Feet): 5 Height (Inches): 5.00 Weight (Pounds): 170 General Appearance: alert EENT: pharynx normal Neck: supple Cardiovascular: regular rhythm Respiratory/Chest: lungs clear Abdomen: soft Extremities: non-tender Edema: 1+ Leg (L), 1+ Leg (R) Edema: mild edema Neurologic: alert Skin: warm/dry Gerry Winston Jun 27, 2016 15:33
[2016-06-27 16:22] VITALS: BP 133/83
--- NOTE | 2016-06-27 17:16 | Infectious Diseases Prog Note ---
Assessment/Plan Problems: (1) Lung abscess Assessment & Plan: continue zyvox, cefepime and flagyl for 4 weeks , recommend to repeat CT scan of the chest in 4 weeks for follow up, sputum culture showed normal keo so far. needs follow up with PCP after discharge. (2) HCAP (healthcare-associated pneumonia) Assessment & Plan: improving, continue zyvox , and cefepime empirically, sputum and blood culture are negative so far , had allergic reaction to either vancomycin or zosyn, most likely vancomycin with red man syndrome, will avoid for now. (3) Adverse reaction to antibiotic Assessment & Plan: unclear whether due to vancomycin VS zosyn , most likely vancomycin since it happened fast after infusion, suspect red man syndrome, will check blood eosinophils counts in blood. avoid both classes of antibiotics for now, ok to use cephalosporins since he received it last admission with no reaction (4) Histoplasmosis pneumonia Assessment & Plan: continue itraconazole, monitor LFT (5) LISET (acute kidney injury) Assessment & Plan: had HD cath placed by renal, and started on HD, avoid nephrotoxic meds. (6) Leukocytosis Assessment & Plan: due to steroids , now improving after D/C, since there is no benefit of steroids in this case Subjective HEENT: Reports: congestion Respiratory: Reports: other - congestion, productive cough Allergies: Coded Allergies: PIPERACILLIN (Verified Adverse Reaction, Intermediate, 06/20/16) pt developed diffuse macular rash per ER MD notes. unclear if due to vanco or zosyn TAZOBACTAM (Verified Adverse Reaction, Intermediate, 06/20/16) pt developed diffuse macular rash per ER MD notes. unclear if due to vanco or zosyn VANCOMYCIN (Verified Adverse Reaction, Intermediate, 06/20/16) pt developed diffuse macular rash per ER MD notes. unclear if due to vanco or zosyn All Systems: reviewed and negative except above Subjective he was doing well today, still have productive cough with yellowish phlegm, no fever, or chills, no vomiting. no skin rash or hives, tolerated current antibiotics well. Objective Vital Signs Last 24 Hour Vital Signs Date Time Temp Pulse Resp B/P Pulse Ox O2 Delivery O2 Flow Rate FiO2 06/27/16 16:22 97.7 76 18 133/83 95 Room Air 06/27/16 12:00 97.2 20 143/89 95 Room Air 06/27/16 09:10 94 Room Air 21 06/27/16 09:10 Room Air 21 06/27/16 09:09 82 18 Room Air 21 06/27/16 08:00 97.3 80 20 143/83 97 Room Air 06/27/16 04:00 97.7 76 20 147/88 96 Room Air 06/27/16 00:00 97.7 76 20 133/86 95 Room Air 06/26/16 20:45 86 18 Room Air 06/26/16 20:45 Room Air 21 06/26/16 20:45 96 Room Air 06/26/16 20:00 96.6 85 20 138/76 95 Room Air Height (Feet): 5 Height (Inches): 5.00 Weight (Pounds): 170 General Appearance: WD/WN, no acute distress HEENT: normocephalic, atraumatic, anicteric, mucous membranes moist Respiratory/Chest: chest wall non-tender, normal breath sounds, no respiratory distress, no accessory muscle use, decreased breath sounds, expiratory wheezing Cardiovascular: normal peripheral pulses, normal rate, regular rhythm, no gallop/murmur Abdomen: normal bowel sounds, soft, non tender, no organomegaly, non distended , no mass, no scars Extremities: no cyanosis, no clubbing Skin: no rash, no lesions, no ulcers Laboratory Tests Test 06/27/16 02:30 06/27/16 05:10 Urine Eosinophils None seen White Blood Count 14.1 K/UL (4.8-10.8) H Red Blood Count 4.10 M/UL (4.70-6.10) L Hemoglobin 11.9 G/DL (14.2-18.0) L Hematocrit 36.3 % (42.0-52.0) L Mean Corpuscular Volume 89 FL (80-99) Mean Corpuscular Hemoglobin 29.0 PG (27.0-31.0) Mean Corpuscular Hemoglobin Concent 32.7 G/DL (32.0-36.0) Red Cell Distribution Width 11.3 % (11.6-14.8) L Platelet Count 390 K/UL (150-450) Mean Platelet Volume 6.1 FL (6.5-10.1) L Neutrophils (%) (Auto) 76.4 % (45.0-75.0) H Lymphocytes (%) (Auto) 10.7 % (20.0-45.0) L Monocytes (%) (Auto) 7.4 % (1.0-10.0) Eosinophils (%) (Auto) 3.3 % (0.0-3.0) H Basophils (%) (Auto) 2.2 % (0.0-2.0) H Sodium Level 141 mEQ/L (135-145) Potassium Level 3.5 mEQ/L (3.4-4.9) Chloride Level 97 mEQ/L (98-107) L Carbon Dioxide Level 28 mEQ/L (20-30) Anion Gap 16 (5-15) H Blood Urea Nitrogen 75 mg/dL (7-23) H Creatinine 4.1 mg/dL (0.7-1.2) H Estimat Glomerular Filtration Rate 16.5 mL/min (>60) Glucose Level 85 mg/dL (74-106) Uric Acid 11.9 mg/dL (3.0-7.5) H Calcium Level 8.3 mg/dL (8.6-10.2) L Phosphorus Level 4.9 mg/dL (2.5-4.8) H Total Bilirubin 0.3 mg/dL (0.0-1.2) Aspartate Amino Transf (AST/SGOT) 14 U/L (5-40) Alanine Aminotransferase (ALT/SGPT) 10 U/L (3-41) Alkaline Phosphatase 42 U/L (40-129) Total Protein 5.7 g/dL (6.6-8.7) L Albumin 2.9 g/dL (3.5-5.2) L Globulin 2.8 g/dL Albumin/Globulin Ratio 1.0 (1.0-2.7) Current Medications Medications (Trade) Dose Ordered Sig/Keila Route PRN Reason Start Time Stop Time Status Last Admin Dose Admin Acetaminophen (Tylenol) 650 mg Q4H PRN ORAL fever 06/23/16 21:00 07/23/16 20:59 Albuterol/ Ipratropium (DuoNeb 0.5-3(2.5)mg/3ml) 3 ml Q4H PRN HHN Shortness of Breath 06/26/16 09:30 07/01/16 09:29 Allopurinol (Zyloprim) 200 mg DAILY ORAL 06/27/16 10:00 07/27/16 09:59 06/27/16 11:51 Cefepime HCl/ Dextrose (Maxipime/D5W) 55 ml @ 110 mls/hr Q24H IV 06/23/16 21:00 06/30/16 20:59 06/26/16 21:09 Clonidine HCl (Catapres) 0.1 mg Q4H PRN ORAL BP over 170 syst 06/23/16 21:00 07/23/16 20:59 Heparin Sodium (Porcine) (Heparin 5000 units/ml) 5,000 units EVERY 12 HOURS SUBQ 06/23/16 21:00 07/23/16 20:59 06/27/16 08:46 Itraconazole (Sporanox) 200 mg Q12HR ORAL 06/23/16 21:00 06/30/16 20:59 06/27/16 08:47 Linezolid (Zyvox) 600 mg Q12HR ORAL 06/23/16 21:00 07/02/16 20:59 06/27/16 08:45 Metronidazole (Flagyl) 500 mg Q8HR ORAL 06/23/16 22:00 06/30/16 21:59 06/27/16 15:01 Nitroglycerin (Ntg) 0.4 mg Q5MIN X3 PRN SL Prn Chest Pain 06/23/16 18:15 07/23/16 18:14 Ondansetron HCl (Zofran) 4 mg Q6H PRN IVP Nausea & Vomiting 06/23/16 19:00 07/23/16 18:59 Polyethylene Glycol (Miralax) 17 gm DAILYPRN PRN ORAL Constipation 06/24/16 13:00 07/24/16 12:59 Promethazine HCl/ Codeine (Phenergan with Codeine) 5 ml Q4H PRN ORAL For Cough 06/23/16 21:00 07/23/16 20:59 06/27/16 08:52 Ranitidine HCl 150 mg 150 mg BEDTIME ORAL 06/24/16 21:00 07/24/16 20:59 06/26/16 21:04 Sevelamer Carbonate (Renvela) 800 mg TIAC ORAL 06/26/16 11:30 07/26/16 11:29 1/23/17 16:35 Sodium Chloride (0.45% NS 1000ml) 1,000 ml @ 75 mls/hr [id number] IV 06/24/16 11:45 07/24/16 11:44 06/27/16 16:35 Temazepam 15 mg 15 mg HSPRN PRN ORAL Insomnia 06/23/16 21:00 06/30/16 20:59 06/26/16 21:06 Erin Navarrete M.D. Jun 27, 2016 17:16
--- NOTE | 2016-06-27 17:42 | Pulmonology Progress Note ---
Assessment/Plan Problems: (1) Lung abscess (2) Pneumonia (3) HTN (hypertension) (4) Adverse reaction to antibiotic (5) Pleurisy (6) HCAP (healthcare-associated pneumonia) Assessment/Plan blood cultures negative no sputum culture yet. keep on med/surg check electrolytes continue antibiotics improving Subjective ROS Limited/Unobtainable: No Interval Events: feeling bettter Allergies: Coded Allergies: PIPERACILLIN (Verified Adverse Reaction, Intermediate, 06/20/16) pt developed diffuse macular rash per ER MD notes. unclear if due to vanco or zosyn TAZOBACTAM (Verified Adverse Reaction, Intermediate, 06/20/16) pt developed diffuse macular rash per ER MD notes. unclear if due to vanco or zosyn VANCOMYCIN (Verified Adverse Reaction, Intermediate, 06/20/16) pt developed diffuse macular rash per ER MD notes. unclear if due to vanco or zosyn Objective Last 24 Hour Vital Signs Date Time Temp Pulse Resp B/P Pulse Ox O2 Delivery O2 Flow Rate FiO2 06/27/16 16:22 97.7 76 18 133/83 95 Room Air 06/27/16 12:00 97.2 20 143/89 95 Room Air 06/27/16 09:10 94 Room Air 21 06/27/16 09:10 Room Air 21 06/27/16 09:09 82 18 Room Air 21 06/27/16 08:00 97.3 80 20 143/83 97 Room Air 06/27/16 04:00 97.7 76 20 147/88 96 Room Air 06/27/16 00:00 97.7 76 20 133/86 95 Room Air 06/26/16 20:45 86 18 Room Air 21 06/26/16 20:45 Room Air 21 06/26/16 20:45 96 Room Air 21 06/26/16 20:00 96.6 85 20 138/76 95 Room Air Intake and Output 06/26/16 06/27/16 19:00 07:00 Intake Total 690 ml 1825 ml Balance 690 ml 1825 ml Intake Oral 240 ml 1300 ml IV Total 450 ml 525 ml # Voids 2 8 # Bowel Movements 2 General Appearance: WD/WN HEENT: normocephalic Respiratory/Chest: chest wall non-tender Cardiovascular: normal peripheral pulses Abdomen: normal bowel sounds Laboratory Tests 06/27/16 02:30: Urine Eosinophils None seen 06/27/16 05:10: White Blood Count 14.1H, Red Blood Count 4.10L, Hemoglobin 11.9L, Hematocrit 36.3L, Mean Corpuscular Volume 89, Mean Corpuscular Hemoglobin 29.0, Mean Corpuscular Hemoglobin Concent 32.7, Red Cell Distribution Width 11.3L, Platelet Count 390, Mean Platelet Volume 6.1L, Neutrophils (%) (Auto) 76.4H, Lymphocytes (%) (Auto) 10.7L, Monocytes (%) (Auto) 7.4, Eosinophils (%) (Auto) 3.3H, Basophils (%) (Auto) 2.2H, Sodium Level 141, Potassium Level 3.5, Chloride Level 97L, Carbon Dioxide Level 28, Anion Gap 16H, Blood Urea Nitrogen 75H, Creatinine 4.1H, Estimat Glomerular Filtration Rate 16.5, Glucose Level 85 , Uric Acid 11.9H, Calcium Level 8.3L, Phosphorus Level 4.9H, Total Bilirubin 0.3, Aspartate Amino Transf (AST/SGOT) 14, Alanine Aminotransferase (ALT/SGPT) 10, Alkaline Phosphatase 42, Total Protein 5.7L, Albumin 2.9L, Globulin 2.8, Albumin/Globulin Ratio 1.0 Current Medications Medications (Trade) Dose Ordered Sig/Keila Route PRN Reason Start Time Stop Time Status Last Admin Dose Admin Acetaminophen (Tylenol) 650 mg Q4H PRN ORAL fever 06/23/16 21:00 07/23/16 20:59 Albuterol/ Ipratropium (DuoNeb 0.5-3(2.5)mg/3ml) 3 ml Q4H PRN HHN Shortness of Breath 06/26/16 09:30 07/01/16 09:29 Allopurinol (Zyloprim) 200 mg DAILY ORAL 06/27/16 10:00 07/27/16 09:59 06/27/16 11:51 Cefepime HCl/ Dextrose (Maxipime/D5W) 55 ml @ 110 mls/hr Q24H IV 06/23/16 21:00 06/30/16 20:59 06/26/16 21:09 Clonidine HCl (Catapres) 0.1 mg Q4H PRN ORAL BP over 170 syst 06/23/16 21:00 07/23/16 20:59 Heparin Sodium (Porcine) (Heparin 5000 units/ml) 5,000 units EVERY 12 HOURS SUBQ 06/23/16 21:00 07/23/16 20:59 06/27/16 08:46 Itraconazole (Sporanox) 200 mg Q12HR ORAL 06/23/16 21:00 06/30/16 20:59 06/27/16 08:47 Linezolid (Zyvox) 600 mg Q12HR ORAL 06/23/16 21:00 07/02/16 20:59 06/27/16 08:45 Metronidazole (Flagyl) 500 mg Q8HR ORAL 06/23/16 22:00 06/30/16 21:59 06/27/16 15:01 Nitroglycerin (Ntg) 0.4 mg Q5MIN X3 PRN SL Prn Chest Pain 06/23/16 18:15 07/23/16 18:14 Ondansetron HCl (Zofran) 4 mg Q6H PRN IVP Nausea & Vomiting 06/23/16 19:00 07/23/16 18:59 Polyethylene Glycol (Miralax) 17 gm DAILYPRN PRN ORAL Constipation 06/24/16 13:00 07/24/16 12:59 Promethazine HCl/ Codeine (Phenergan with Codeine) 5 ml Q4H PRN ORAL For Cough 06/23/16 21:00 07/23/16 20:59 06/27/16 08:52 Ranitidine HCl 150 mg 150 mg BEDTIME ORAL 06/24/16 21:00 07/24/16 20:59 06/26/16 21:04 Sevelamer Carbonate (Renvela) 800 mg TIAC ORAL 06/26/16 11:30 07/26/16 11:29 06/27/16 16:35 Sodium Chloride (0.45% NS 1000ml) 1,000 ml @ 75 mls/hr [id number] IV 06/24/16 11:45 07/24/16 11:44 06/27/16 16:35 Temazepam 15 mg 15 mg HSPRN PRN ORAL Insomnia 06/23/16 21:00 06/30/16 20:59 06/26/16 21:06 SAGAR CHRIS Jun 27, 2016 17:42
--- NOTE | 2016-06-27 19:05 | Cardiac Electrophysiology PN ---
Assessment/Plan Assessment/Plan 1. Sinus tachycardia due to sepsis and renal failure. No atrial fibrillation or SVT. 2. Hypertension, stable off any antihypertensives.On prn Clonidine. 3. History of histoplasmosis. 4. Shortness of breath due to healthcare-associated pneumonia. On empiric Zyvox. 5. Acute renal failure.Last HD 06/25/16 HEIDI RN Subjective Subjective No chest pain or SOB.Alert in NAD. No dialysis today. Objective Last 24 Hour Vital Signs Date Time Temp Pulse Resp B/P Pulse Ox O2 Delivery O2 Flow Rate FiO2 06/27/16 16:22 97.7 76 18 133/83 95 Room Air 06/27/16 12:00 97.2 20 143/89 95 Room Air 06/27/16 09:10 94 Room Air 21 06/27/16 09:10 Room Air 21 06/27/16 09:09 82 18 Room Air 21 06/27/16 08:00 97.3 80 20 143/83 97 Room Air 06/27/16 04:00 97.7 76 20 147/88 96 Room Air 06/27/16 00:00 97.7 76 20 133/86 95 Room Air 06/26/16 20:45 86 18 Room Air 21 06/26/16 20:45 Room Air 21 06/26/16 20:45 96 Room Air 21 06/26/16 20:00 96.6 85 20 138/76 95 Room Air Intake and Output 06/26/16 06/27/16 19:00 07:00 Intake Total 690 ml 1825 ml Balance 690 ml 1825 ml Intake Oral 240 ml 1300 ml IV Total 450 ml 525 ml # Voids 2 8 # Bowel Movements 2 Laboratory Tests Test 06/27/16 02:30 06/27/16 05:10 Urine Eosinophils None seen White Blood Count 14.1 K/UL (4.8-10.8) H Red Blood Count 4.10 M/UL (4.70-6.10) L Hemoglobin 11.9 G/DL (14.2-18.0) L Hematocrit 36.3 % (42.0-52.0) L Mean Corpuscular Volume 89 FL (80-99) Mean Corpuscular Hemoglobin 29.0 PG (27.0-31.0) Mean Corpuscular Hemoglobin Concent 32.7 G/DL (32.0-36.0) Red Cell Distribution Width 11.3 % (11.6-14.8) L Platelet Count 390 K/UL (150-450) Mean Platelet Volume 6.1 FL (6.5-10.1) L Neutrophils (%) (Auto) 76.4 % (45.0-75.0) H Lymphocytes (%) (Auto) 10.7 % (20.0-45.0) L Monocytes (%) (Auto) 7.4 % (1.0-10.0) Eosinophils (%) (Auto) 3.3 % (0.0-3.0) H Basophils (%) (Auto) 2.2 % (0.0-2.0) H Sodium Level 141 mEQ/L (135-145) Potassium Level 3.5 mEQ/L (3.4-4.9) Chloride Level 97 mEQ/L (98-107) L Carbon Dioxide Level 28 mEQ/L (20-30) Anion Gap 16 (5-15) H Blood Urea Nitrogen 75 mg/dL (7-23) H Creatinine 4.1 mg/dL (0.7-1.2) H Estimat Glomerular Filtration Rate 16.5 mL/min (>60) Glucose Level 85 mg/dL (74-106) Uric Acid 11.9 mg/dL (3.0-7.5) H Calcium Level 8.3 mg/dL (8.6-10.2) L Phosphorus Level 4.9 mg/dL (2.5-4.8) H Total Bilirubin 0.3 mg/dL (0.0-1.2) Aspartate Amino Transf (AST/SGOT) 14 U/L (5-40) Alanine Aminotransferase (ALT/SGPT) 10 U/L (3-41) Alkaline Phosphatase 42 U/L (40-129) Total Protein 5.7 g/dL (6.6-8.7) L Albumin 2.9 g/dL (3.5-5.2) L Globulin 2.8 g/dL Albumin/Globulin Ratio 1.0 (1.0-2.7) Objective NECK: Shows no JVD. LUNGS: Coarse rhonchi. CARDIOVASCULAR: Shows regular S1 and S2 with no gallop or murmur. ABDOMEN: Soft. EXTREMITIES: No pitting edema. JOHN PENA Jun 27, 2016 19:05
[2016-06-27 20:00] VITALS: BP 133/80
[2016-06-27] MEDS: Cefepime HCl 500 MG in D5W 55 ML IV SCH (22:01)
[2016-06-28] VITALS: BP 136/75
[2016-06-28 04:00] VITALS: BP 140/86
[2016-06-28] MEDS: metroNIDAZOLE 500mg tab ORAL SCH ×3 (06:27→21:00)
[2016-06-28 07:20] LABS: BASOPHILS % (AUTO) 0.8 % (0.0-2.0); EOSINOPHILS % (AUTO) 3.4 % (0.0-3.0); MEAN CORPUSCULAR HEMOGLOBIN 28.7 PG (27.0-31.0); MEAN CORPUSCULAR HGB CONC 33.2 G/DL (32.0-36.0); MEAN CORPUSCULAR VOLUME 86 FL (80-99); MEAN PLATELET VOLUME 6.2 FL (6.5-10.1); MONOCYTES % (AUTO) 6.3 % (1.0-10.0); NEUTROPHILS % (AUTO) 78.5 % (45.0-75.0); PLATELET COUNT 384 K/UL (150-450); RED BLOOD COUNT 4.17 M/UL (4.70-6.10); WHITE BLOOD COUNT 13.5 K/UL (4.8-10.8)
[2016-06-28 07:48] LABS: CALCIUM 8.3 mg/dL (8.6-10.2); CREATININE 3.6 mg/dL (0.7-1.2); GLOMERULAR FILTRATION RATE 19.2 mL/min (>60); MAGNESIUM 1.7 mg/dL (1.7-2.5); PHOSPHORUS 4.5 mg/dL (2.5-4.8); POTASSIUM 3.7 mEQ/L (3.4-4.9); URIC ACID 11.1 mg/dL (3.0-7.5)
[2016-06-28 08:00] VITALS: BP 129/88
[2016-06-28] MEDS: Allopurinol 100mg Tab ORAL SCH (08:05)
[2016-06-28] MEDS: Heparin 5000 units/ml inj SUBQ SCH ×2 (08:08→21:01)
--- NOTE | 2016-06-28 10:19 | General Progress Note ---
Assessment/Plan Status: stable - from renal stand Status Narrative Cr lowering without HD Assessment/Plan Status: Acute renal failure ( Allergic vs Sepsis) / RESOLVING NOW Urine positive for Eosinophils leading to Allergic etiology IMPROVING Other: 1) Lung abscess (2) Pneumonia (3) HTN (hypertension) (4) Adverse reaction to antibiotic (5) Pleurisy (6) HCAP (healthcare-associated pneumonia) Plan: monitor renal parameters- HD last 06/25, Cr lowering without HD Slow hydrate Subjective ROS Limited/Unobtainable: No Constitutional: Reports: other - feels better Allergies: Coded Allergies: PIPERACILLIN (Verified Adverse Reaction, Intermediate, 06/20/16) pt developed diffuse macular rash per ER MD notes. unclear if due to vanco or zosyn TAZOBACTAM (Verified Adverse Reaction, Intermediate, 06/20/16) pt developed diffuse macular rash per ER MD notes. unclear if due to vanco or zosyn VANCOMYCIN (Verified Adverse Reaction, Intermediate, 06/20/16) pt developed diffuse macular rash per ER MD notes. unclear if due to vanco or zosyn Objective Last 24 Hour Vital Signs Date Time Temp Pulse Resp B/P Pulse Ox O2 Delivery O2 Flow Rate FiO2 06/28/16 08:59 78 18 Room Air 21 06/28/16 08:59 Room Air 21 06/28/16 08:59 97 Room Air 21 06/28/16 08:00 97.7 73 20 129/88 97 Room Air 06/28/16 04:00 97.7 77 22 140/86 95 Room Air 06/28/16 00:00 97.3 83 20 136/75 97 Room Air 06/27/16 21:45 Room Air 21 06/27/16 21:45 95 Room Air 21 06/27/16 21:44 83 18 Room Air 21 06/27/16 20:00 97.3 78 18 133/80 94 Room Air 06/27/16 16:22 97.7 76 18 133/83 95 Room Air 06/27/16 12:00 97.2 20 143/89 95 Room Air Intake and Output 06/27/16 06/28/16 18:59 06:59 Intake Total 1050 ml 1005 ml Balance 1050 ml 1005 ml Intake Oral 600 ml 480 ml IV Total 450 ml 525 ml # Voids 3 3 Laboratory Tests 06/28/16 05:10: White Blood Count 13.5H, Red Blood Count 4.17L, Hemoglobin 12.0L, Hematocrit 36.0L, Mean Corpuscular Volume 86, Mean Corpuscular Hemoglobin 28.7, Mean Corpuscular Hemoglobin Concent 33.2, Red Cell Distribution Width 11.0L, Platelet Count 384, Mean Platelet Volume 6.2L, Neutrophils (%) (Auto) 78.5H, Lymphocytes (%) (Auto) 11.0L, Monocytes (%) (Auto) 6.3, Eosinophils (%) (Auto) 3.4H, Basophils (%) (Auto) 0.8, Sodium Level 140, Potassium Level 3.7, Chloride Level 99, Carbon Dioxide Level 30, Anion Gap 11, Blood Urea Nitrogen 65H, Creatinine 3.6H, Estimat Glomerular Filtration Rate 19.2, Glucose Level 90, Uric Acid 11.1H, Calcium Level 8.3L, Phosphorus Level 4.5, Magnesium Level 1.7, Total Bilirubin 0.4, Gamma Glutamyl Transpeptidase 31, Aspartate Amino Transf ( AST/SGOT) 14, Alanine Aminotransferase (ALT/SGPT) 8, Alkaline Phosphatase 42, Total Protein 6.0L, Albumin 3.0L, Globulin 3.0, Albumin/Globulin Ratio 1.0 06/28/16 06:00: Urine Eosinophils [Pending] Height (Feet): 5 Height (Inches): 5.00 Weight (Pounds): 170 General Appearance: no apparent distress Objective PE no change MILA GARCIA Jun 28, 2016 10:19
[2016-06-28 12:00] VITALS: BP 134/84
--- NOTE | 2016-06-28 14:31 | Diagnostic Imaging Report ---
Indication: DYSPNEA Technique: One view of the chest Comparison: 06/27/2016 Findings: Some focal atelectasis or consolidation is seen at the right lateral lung base. The remainder the lungs and pleural space are clear. Previously demonstrated right perihilar atelectasis is no longer evident. Heart size is normal. Right jugular temporary dialysis catheter is again demonstrated Impression: Right lateral focal basilar opacity, probably focal atelectasis, focal consolidation not excludable Other findings as noted
--- NOTE | 2016-06-28 14:54 | General Progress Note ---
Assessment/Plan Problem List: (1) Histoplasmosis pneumonia ICD Codes: B39.2 - Pulmonary histoplasmosis capsulati, unspecified SNOMED: 064514123 (2) Vomiting ICD Codes: R11.10 - Vomiting, unspecified SNOMED: 244799046 (3) Adverse reaction to antibiotic ICD Codes: T36.95XA - Adverse effect of unspecified systemic antibiotic, initial encounter SNOMED: 611965911, 840583951 Qualifiers: Qualified Codes: T36.95XA - Adverse effect of unspecified systemic antibiotic, initial encounter (4) Cavitary lung disease ICD Codes: J98.4 - Other disorders of lung SNOMED: 81317214 (5) Pneumonia ICD Codes: J18.9 - Pneumonia, unspecified organism SNOMED: 467605472 (6) HTN (hypertension) ICD Codes: I10 - Essential (primary) hypertension SNOMED: 58166946 Qualifiers: Qualified Codes: I10 - Essential (primary) hypertension (7) Hyperlipidemia, mixed ICD Codes: E78.2 - Mixed hyperlipidemia SNOMED: 477351290 (8) Pleurisy ICD Codes: R09.1 - Pleurisy SNOMED: 209237939 Status: progressing Assessment/Plan no wheezing pna resp insuff abx per id afebrle fungal pna and bacterial pna Subjective ROS Limited/Unobtainable: Yes Constitutional: Reports: no symptoms Allergies: Coded Allergies: PIPERACILLIN (Verified Adverse Reaction, Intermediate, 06/20/16) pt developed diffuse macular rash per ER MD notes. unclear if due to vanco or zosyn TAZOBACTAM (Verified Adverse Reaction, Intermediate, 06/20/16) pt developed diffuse macular rash per ER MD notes. unclear if due to vanco or zosyn VANCOMYCIN (Verified Adverse Reaction, Intermediate, 06/20/16) pt developed diffuse macular rash per ER MD notes. unclear if due to vanco or zosyn Objective Last 24 Hour Vital Signs Date Time Temp Pulse Resp B/P Pulse Ox O2 Delivery O2 Flow Rate FiO2 06/28/16 12:00 98.2 77 21 134/84 96 Room Air 06/28/16 08:59 78 18 Room Air 21 06/28/16 08:59 Room Air 21 06/28/16 08:59 97 Room Air 21 06/28/16 08:00 97.7 73 20 129/88 97 Room Air 06/28/16 04:00 97.7 77 22 140/86 95 Room Air 06/28/16 00:00 97.3 83 20 136/75 97 Room Air 06/27/16 21:45 Room Air 21 06/27/16 21:45 95 Room Air 21 06/27/16 21:44 83 18 Room Air 21 06/27/16 20:00 97.3 78 18 133/80 94 Room Air 06/27/16 16:22 97.7 76 18 133/83 95 Room Air Intake and Output 06/27/16 06/28/16 19:00 07:00 Intake Total 1050 ml 1005 ml Balance 1050 ml 1005 ml Intake Oral 600 ml 480 ml IV Total 450 ml 525 ml # Voids 3 3 Laboratory Tests 06/28/16 05:10: White Blood Count 13.5H, Red Blood Count 4.17L, Hemoglobin 12.0L, Hematocrit 36.0L, Mean Corpuscular Volume 86, Mean Corpuscular Hemoglobin 28.7, Mean Corpuscular Hemoglobin Concent 33.2, Red Cell Distribution Width 11.0L, Platelet Count 384, Mean Platelet Volume 6.2L, Neutrophils (%) (Auto) 78.5H, Lymphocytes (%) (Auto) 11.0L, Monocytes (%) (Auto) 6.3, Eosinophils (%) (Auto) 3.4H, Basophils (%) (Auto) 0.8, Sodium Level 140, Potassium Level 3.7, Chloride Level 99, Carbon Dioxide Level 30, Anion Gap 11, Blood Urea Nitrogen 65H, Creatinine 3.6H, Estimat Glomerular Filtration Rate 19.2, Glucose Level 90, Uric Acid 11.1H, Calcium Level 8.3L, Phosphorus Level 4.5, Magnesium Level 1.7, Total Bilirubin 0.4, Gamma Glutamyl Transpeptidase 31, Aspartate Amino Transf ( AST/SGOT) 14, Alanine Aminotransferase (ALT/SGPT) 8, Alkaline Phosphatase 42, Total Protein 6.0L, Albumin 3.0L, Globulin 3.0, Albumin/Globulin Ratio 1.0 06/28/16 06:00: Urine Eosinophils Rare Height (Feet): 5 Height (Inches): 5.00 Weight (Pounds): 170 EENT: PERRL/EOMI Neck: supple Cardiovascular: normal rate Respiratory/Chest: lungs clear Abdomen: soft Jesse Dean MD Jun 28, 2016 14:54
--- NOTE | 2016-06-28 16:37 | General Progress Note ---
Assessment/Plan Assessment/Plan ASSESSMENT: 1. Leukocytosis - better, due to underlying Histoplasmosis pneumonia as well as steriods 2. Anemia secondary to chronic disease. 3. Decreased hemoglobin and hematocrit, rule out gastrointestinal bleed. 4. Nausea and vomiting - now improved 5. Community-acquired pneumonia on abx 6. Eosinophilia history that is resolved. 7. Acute kidney injury - on HD, monitoring per renal RECOMMENDATIONS: 1. Monitor counts and maintain hgb >7 2. Monitor wbc counts 3. Followup on renal, ID, CC notes 4. Anemia w/u has been reviewed 5. Repeat smear has been reviewed 6. DVT ppx with heparin sq 7. GI prophylaxis prn basis 8. staff Thank you, Gerry Winston MD Subjective Constitutional: Reports: no symptoms HEENT: Reports: no symptoms Cardiovascular: Reports: no symptoms Respiratory: Reports: no symptoms Gastrointestinal/Abdominal: Reports: poor appetite Genitourinary: Reports: no symptoms Neurologic/Psychiatric: Reports: no symptoms Endocrine: Reports: no symptoms Hematologic/Lymphatic: Reports: anemia Allergies: Coded Allergies: PIPERACILLIN (Verified Adverse Reaction, Intermediate, 06/20/16) pt developed diffuse macular rash per ER MD notes. unclear if due to vanco or zosyn TAZOBACTAM (Verified Adverse Reaction, Intermediate, 06/20/16) pt developed diffuse macular rash per ER MD notes. unclear if due to vanco or zosyn VANCOMYCIN (Verified Adverse Reaction, Intermediate, 06/20/16) pt developed diffuse macular rash per ER MD notes. unclear if due to vanco or zosyn Subjective stable, no bleeding, no complaints this am, has been off HD since 06/25 Objective Last 24 Hour Vital Signs Date Time Temp Pulse Resp B/P Pulse Ox O2 Delivery O2 Flow Rate FiO2 06/28/16 12:00 98.2 77 21 134/84 96 Room Air 06/28/16 08:59 78 18 Room Air 21 06/28/16 08:59 Room Air 21 06/28/16 08:59 97 Room Air 21 06/28/16 08:00 97.7 73 20 129/88 97 Room Air 06/28/16 04:00 97.7 77 22 140/86 95 Room Air 06/28/16 00:00 97.3 83 20 136/75 97 Room Air 06/27/16 21:45 Room Air 21 06/27/16 21:45 95 Room Air 21 06/27/16 21:44 83 18 Room Air 21 06/27/16 20:00 97.3 78 18 133/80 94 Room Air Intake and Output 06/27/16 06/28/16 19:00 07:00 Intake Total 1050 ml 1080 ml Balance 1050 ml 1080 ml Intake Oral 600 ml 480 ml IV Total 450 ml 600 ml # Voids 3 3 Laboratory Tests 06/28/16 05:10: White Blood Count 13.5H, Red Blood Count 4.17L, Hemoglobin 12.0L, Hematocrit 36.0L, Mean Corpuscular Volume 86, Mean Corpuscular Hemoglobin 28.7, Mean Corpuscular Hemoglobin Concent 33.2, Red Cell Distribution Width 11.0L, Platelet Count 384, Mean Platelet Volume 6.2L, Neutrophils (%) (Auto) 78.5H, Lymphocytes (%) (Auto) 11.0L, Monocytes (%) (Auto) 6.3, Eosinophils (%) (Auto) 3.4H, Basophils (%) (Auto) 0.8, Sodium Level 140, Potassium Level 3.7, Chloride Level 99, Carbon Dioxide Level 30, Anion Gap 11, Blood Urea Nitrogen 65H, Creatinine 3.6H, Estimat Glomerular Filtration Rate 19.2, Glucose Level 90, Uric Acid 11.1H, Calcium Level 8.3L, Phosphorus Level 4.5, Magnesium Level 1.7, Total Bilirubin 0.4, Gamma Glutamyl Transpeptidase 31, Aspartate Amino Transf ( AST/SGOT) 14, Alanine Aminotransferase (ALT/SGPT) 8, Alkaline Phosphatase 42, Total Protein 6.0L, Albumin 3.0L, Globulin 3.0, Albumin/Globulin Ratio 1.0 06/28/16 06:00: Urine Eosinophils Rare Height (Feet): 5 Height (Inches): 5.00 Weight (Pounds): 170 General Appearance: no apparent distress EENT: normal ENT inspection Neck: supple Cardiovascular: normal rate Respiratory/Chest: lungs clear Abdomen: non tender Extremities: non-tender Edema: 1+ Leg (L), 1+ Leg (R) Edema: mild edema Neurologic: blindstitch hemmer II-XII 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 Skin: warm/dry Gerry Winston Jun 28, 2016 16:37
[2016-06-28 16:42] VITALS: BP 132/85
--- NOTE | 2016-06-28 16:44 | Cardiac Electrophysiology PN ---
Assessment/Plan Assessment/Plan 1. Sinus tachycardia due to sepsis and renal failure. Resolved. Off tele. 2. Hypertension, stable off any antihypertensives. 3. History of histoplasmosis. 4. Shortness of breath due to healthcare-associated pneumonia. On empiric Zyvox. 5. Acute renal failure. Last HD 06/25/16 DW RN and Subjective Subjective No chest pain or SOB.Alert in NAD. No dialysis for 4 days now. at bedside. Objective Last 24 Hour Vital Signs Date Time Temp Pulse Resp B/P Pulse Ox O2 Delivery O2 Flow Rate FiO2 06/28/16 12:00 98.2 77 21 134/84 96 Room Air 06/28/16 08:59 78 18 Room Air 21 06/28/16 08:59 Room Air 21 06/28/16 08:59 97 Room Air 21 06/28/16 08:00 97.7 73 20 129/88 97 Room Air 06/28/16 04:00 97.7 77 22 140/86 95 Room Air 06/28/16 00:00 97.3 83 20 136/75 97 Room Air 06/27/16 21:45 Room Air 21 06/27/16 21:45 95 Room Air 21 06/27/16 21:44 83 18 Room Air 21 06/27/16 20:00 97.3 78 18 133/80 94 Room Air Intake and Output 06/27/16 06/28/16 19:00 07:00 Intake Total 1050 ml 1080 ml Balance 1050 ml 1080 ml Intake Oral 600 ml 480 ml IV Total 450 ml 600 ml # Voids 3 3 Laboratory Tests Test 06/28/16 05:10 06/28/16 06:00 White Blood Count 13.5 K/UL (4.8-10.8) H Red Blood Count 4.17 M/UL (4.70-6.10) L Hemoglobin 12.0 G/DL (14.2-18.0) L Hematocrit 36.0 % (42.0-52.0) L Mean Corpuscular Volume 86 FL (80-99) Mean Corpuscular Hemoglobin 28.7 PG (27.0-31.0) Mean Corpuscular Hemoglobin Concent 33.2 G/DL (32.0-36.0) Red Cell Distribution Width 11.0 % (11.6-14.8) L Platelet Count 384 K/UL (150-450) Mean Platelet Volume 6.2 FL (6.5-10.1) L Neutrophils (%) (Auto) 78.5 % (45.0-75.0) H Lymphocytes (%) (Auto) 11.0 % (20.0-45.0) L Monocytes (%) (Auto) 6.3 % (1.0-10.0) Eosinophils (%) (Auto) 3.4 % (0.0-3.0) H Basophils (%) (Auto) 0.8 % (0.0-2.0) Sodium Level 140 mEQ/L (135-145) Potassium Level 3.7 mEQ/L (3.4-4.9) Chloride Level 99 mEQ/L (98-107) Carbon Dioxide Level 30 mEQ/L (20-30) Anion Gap 11 (5-15) Blood Urea Nitrogen 65 mg/dL (7-23) H Creatinine 3.6 mg/dL (0.7-1.2) H Estimat Glomerular Filtration Rate 19.2 mL/min (>60) Glucose Level 90 mg/dL (74-106) Uric Acid 11.1 mg/dL (3.0-7.5) H Calcium Level 8.3 mg/dL (8.6-10.2) L Phosphorus Level 4.5 mg/dL (2.5-4.8) Magnesium Level 1.7 mg/dL (1.7-2.5) Total Bilirubin 0.4 mg/dL (0.0-1.2) Gamma Glutamyl Transpeptidase 31 U/L (8-61) Aspartate Amino Transf (AST/SGOT) 14 U/L (5-40) Alanine Aminotransferase (ALT/SGPT) 8 U/L (3-41) Alkaline Phosphatase 42 U/L (40-129) Total Protein 6.0 g/dL (6.6-8.7) L Albumin 3.0 g/dL (3.5-5.2) L Globulin 3.0 g/dL Albumin/Globulin Ratio 1.0 (1.0-2.7) Urine Eosinophils Rare Objective NECK: Shows no JVD. LUNGS: Coarse rhonchi. CARDIOVASCULAR: Shows regular S1 and S2 with no gallop or murmur. ABDOMEN: Soft. EXTREMITIES: No pitting edema. JOHN PENA Jun 28, 2016 16:44
--- NOTE | 2016-06-28 17:14 | Infectious Diseases Prog Note ---
Assessment/Plan Problems: (1) Lung abscess Assessment & Plan: continue zyvox, cefepime and flagyl for 4 weeks , recommend to repeat CT scan of the chest in 4 weeks for follow up, sputum culture showed normal keo so far. needs follow up with PCP after discharge. (2) HCAP (healthcare-associated pneumonia) Assessment & Plan: improving, continue zyvox , and cefepime empirically, sputum and blood culture are negative so far , had allergic reaction to either vancomycin or zosyn, most likely vancomycin with red man syndrome, will avoid for now. (3) Adverse reaction to antibiotic Assessment & Plan: unclear whether due to vancomycin VS zosyn , most likely vancomycin since it happened fast after infusion, suspect red man syndrome, will check blood eosinophils counts in blood. avoid both classes of antibiotics for now, ok to use cephalosporins since he received it last admission with no reaction (4) Histoplasmosis pneumonia Assessment & Plan: continue itraconazole, monitor LFT (5) LISET (acute kidney injury) Assessment & Plan: had HD cath placed by renal, and started on HD, avoid nephrotoxic meds. (6) Leukocytosis Assessment & Plan: due to steroids , now improving after D/C, since there is no benefit of steroids in this case Subjective Constitutional: Denies: anorexia, chills, drenching sweats, fatigue, fever, no symptoms, other HEENT: Reports: congestion Respiratory: Reports: productive cough Breasts: Denies: discharge, no symptoms, other, swelling, tenderness Cardiovascular: Denies: chest pain, dyspnea on exertion, no symptoms, other, palpitations Gastrointestinal/Abdominal: Denies: bloating, blood in stool, constipation, diarrhea, nausea, no symptoms, other, vomiting Genitourinary: Denies: dysuria, frequency, hematuria, no symptoms, nocturia, other Neurologic: Denies: confusion, headache, no symptoms, numbness, other, weakness Psychiatric: Denies: anxiety, depression, no symptoms, other Skin: Denies: no symptoms, other, rash, ulcer Endocrine: Denies: feels cold, feels warm, no symptoms, other Allergies: Coded Allergies: PIPERACILLIN (Verified Adverse Reaction, Intermediate, 06/20/16) pt developed diffuse macular rash per ER MD notes. unclear if due to vanco or zosyn TAZOBACTAM (Verified Adverse Reaction, Intermediate, 06/20/16) pt developed diffuse macular rash per ER MD notes. unclear if due to vanco or zosyn VANCOMYCIN (Verified Adverse Reaction, Intermediate, 06/20/16) pt developed diffuse macular rash per ER MD notes. unclear if due to vanco or zosyn Subjective he was doing ok, still have productive cough with yellowish phlegm, no fever, or chills, no vomiting. no skin rash or hives, tolerated current antibiotics well. Objective Vital Signs Last 24 Hour Vital Signs Date Time Temp Pulse Resp B/P Pulse Ox O2 Delivery O2 Flow Rate FiO2 06/28/16 16:42 98.2 74 19 132/85 95 Room Air 06/28/16 12:00 98.2 77 21 134/84 96 Room Air 06/28/16 08:59 78 18 Room Air 21 06/28/16 08:59 Room Air 21 06/28/16 08:59 97 Room Air 21 06/28/16 08:00 97.7 73 20 129/88 97 Room Air 06/28/16 04:00 97.7 77 22 140/86 95 Room Air 06/28/16 00:00 97.3 83 20 136/75 97 Room Air 06/27/16 21:45 Room Air 21 06/27/16 21:45 95 Room Air 21 06/27/16 21:44 83 18 Room Air 21 06/27/16 20:00 97.3 78 18 133/80 94 Room Air Height (Feet): 5 Height (Inches): 5.00 Weight (Pounds): 170 General Appearance: WD/WN, no acute distress HEENT: normocephalic, atraumatic, anicteric, mucous membranes moist, PERRL Respiratory/Chest: chest wall non-tender, normal breath sounds, no respiratory distress, no accessory muscle use, decreased breath sounds, crackles/rales, expiratory wheezing Cardiovascular: normal peripheral pulses, normal rate, regular rhythm, no gallop/murmur, no JVD Abdomen: normal bowel sounds, soft, non tender, no organomegaly, non distended , no mass Extremities: no cyanosis, no clubbing Skin: no rash, no lesions, no ulcers Laboratory Tests Test 06/28/16 05:10 06/28/16 06:00 White Blood Count 13.5 K/UL (4.8-10.8) H Red Blood Count 4.17 M/UL (4.70-6.10) L Hemoglobin 12.0 G/DL (14.2-18.0) L Hematocrit 36.0 % (42.0-52.0) L Mean Corpuscular Volume 86 FL (80-99) Mean Corpuscular Hemoglobin 28.7 PG (27.0-31.0) Mean Corpuscular Hemoglobin Concent 33.2 G/DL (32.0-36.0) Red Cell Distribution Width 11.0 % (11.6-14.8) L Platelet Count 384 K/UL (150-450) Mean Platelet Volume 6.2 FL (6.5-10.1) L Neutrophils (%) (Auto) 78.5 % (45.0-75.0) H Lymphocytes (%) (Auto) 11.0 % (20.0-45.0) L Monocytes (%) (Auto) 6.3 % (1.0-10.0) Eosinophils (%) (Auto) 3.4 % (0.0-3.0) H Basophils (%) (Auto) 0.8 % (0.0-2.0) Sodium Level 140 mEQ/L (135-145) Potassium Level 3.7 mEQ/L (3.4-4.9) Chloride Level 99 mEQ/L (98-107) Carbon Dioxide Level 30 mEQ/L (20-30) Anion Gap 11 (5-15) Blood Urea Nitrogen 65 mg/dL (7-23) H Creatinine 3.6 mg/dL (0.7-1.2) H Estimat Glomerular Filtration Rate 19.2 mL/min (>60) Glucose Level 90 mg/dL (74-106) Uric Acid 11.1 mg/dL (3.0-7.5) H Calcium Level 8.3 mg/dL (8.6-10.2) L Phosphorus Level 4.5 mg/dL (2.5-4.8) Magnesium Level 1.7 mg/dL (1.7-2.5) Total Bilirubin 0.4 mg/dL (0.0-1.2) Gamma Glutamyl Transpeptidase 31 U/L (8-61) Aspartate Amino Transf (AST/SGOT) 14 U/L (5-40) Alanine Aminotransferase (ALT/SGPT) 8 U/L (3-41) Alkaline Phosphatase 42 U/L (40-129) Total Protein 6.0 g/dL (6.6-8.7) L Albumin 3.0 g/dL (3.5-5.2) L Globulin 3.0 g/dL Albumin/Globulin Ratio 1.0 (1.0-2.7) Urine Eosinophils Rare Current Medications Medications (Trade) Dose Ordered Sig/Keila Route PRN Reason Start Time Stop Time Status Last Admin Dose Admin Acetaminophen (Tylenol) 650 mg Q4H PRN ORAL fever 06/23/16 21:00 07/23/16 20:59 Albuterol/ Ipratropium (DuoNeb 0.5-3(2.5)mg/3ml) 3 ml Q4H PRN HHN Shortness of Breath 06/26/16 09:30 07/01/16 09:29 Allopurinol (Allopurinol) 300 mg DAILY ORAL 06/29/16 09:00 07/29/16 08:59 Cefepime HCl/ Dextrose (Maxipime/D5W) 55 ml @ 110 mls/hr Q24H IV 06/23/16 21:00 06/30/16 20:59 06/27/16 22:01 Clonidine HCl (Catapres) 0.1 mg Q4H PRN ORAL BP over 170 syst 06/23/16 21:00 07/23/16 20:59 Heparin Sodium (Porcine) (Heparin 5000 units/ml) 5,000 units EVERY 12 HOURS SUBQ 06/23/16 21:00 07/23/16 20:59 06/28/16 08:08 Itraconazole (Sporanox) 200 mg Q12HR ORAL 06/23/16 21:00 06/30/16 20:59 06/28/16 08:04 Linezolid (Zyvox) 600 mg Q12HR ORAL 06/23/16 21:00 07/02/16 20:59 06/28/16 08:05 Metronidazole (Flagyl) 500 mg Q8HR ORAL 06/23/16 22:00 06/30/16 21:59 06/28/16 14:51 Nitroglycerin (Ntg) 0.4 mg Q5MIN X3 PRN SL Prn Chest Pain 06/23/16 18:15 07/23/16 18:14 Ondansetron HCl (Zofran) 4 mg Q6H PRN IVP Nausea & Vomiting 06/23/16 19:00 07/23/16 18:59 Polyethylene Glycol (Miralax) 17 gm DAILYPRN PRN ORAL Constipation 06/24/16 13:00 07/24/16 12:59 Promethazine HCl/ Codeine (Phenergan with Codeine) 5 ml Q4H PRN ORAL For Cough 06/23/16 21:00 07/23/16 20:59 06/27/16 22:00 Ranitidine HCl 150 mg 150 mg BEDTIME ORAL 06/24/16 21:00 07/24/16 20:59 06/27/16 22:01 Sodium Chloride (0.45% NS 1000ml) 1,000 ml @ 75 mls/hr [id number] IV 06/24/16 11:45 07/24/16 11:44 06/28/16 06:28 Temazepam 15 mg 15 mg HSPRN PRN ORAL Insomnia 06/23/16 21:00 06/30/16 20:59 06/26/16 21:06 Erin Navarrete M.D. Jun 28, 2016 17:14
--- NOTE | 2016-06-28 18:37 | Pulmonology Progress Note ---
Assessment/Plan Problems: (1) Lung abscess (2) Pneumonia (3) HTN (hypertension) (4) Adverse reaction to antibiotic (5) Pleurisy (6) HCAP (healthcare-associated pneumonia) Assessment/Plan blood cultures negative no sputum culture yet. check electrolytes continue antibiotics on linezolid, flagyl itraconazole..... cxr much better Subjective ROS Limited/Unobtainable: No Interval Events: feeling better Allergies: Coded Allergies: PIPERACILLIN (Verified Adverse Reaction, Intermediate, 06/20/16) pt developed diffuse macular rash per ER MD notes. unclear if due to vanco or zosyn TAZOBACTAM (Verified Adverse Reaction, Intermediate, 06/20/16) pt developed diffuse macular rash per ER MD notes. unclear if due to vanco or zosyn VANCOMYCIN (Verified Adverse Reaction, Intermediate, 06/20/16) pt developed diffuse macular rash per ER MD notes. unclear if due to vanco or zosyn Objective Last 24 Hour Vital Signs Date Time Temp Pulse Resp B/P Pulse Ox O2 Delivery O2 Flow Rate FiO2 06/28/16 16:42 98.2 74 19 132/85 95 Room Air 06/28/16 12:00 98.2 77 21 134/84 96 Room Air 06/28/16 08:59 78 18 Room Air 21 06/28/16 08:59 Room Air 21 06/28/16 08:59 97 Room Air 21 06/28/16 08:00 97.7 73 20 129/88 97 Room Air 06/28/16 04:00 97.7 77 22 140/86 95 Room Air 06/28/16 00:00 97.3 83 20 136/75 97 Room Air 06/27/16 21:45 Room Air 21 06/27/16 21:45 95 Room Air 21 06/27/16 21:44 83 18 Room Air 21 06/27/16 20:00 97.3 78 18 133/80 94 Room Air Intake and Output 06/27/16 06/28/16 19:00 07:00 Intake Total 1050 ml 1080 ml Balance 1050 ml 1080 ml Intake Oral 600 ml 480 ml IV Total 450 ml 600 ml # Voids 3 3 General Appearance: WD/WN HEENT: normocephalic, anicteric Respiratory/Chest: lungs clear, no respiratory distress Cardiovascular: normal peripheral pulses, regularly irregular Abdomen: soft, non tender, no organomegaly Extremities: no cyanosis Neurologic/Psychiatric: sheriff sergeant II-XII 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, abnormal gait Laboratory Tests 06/28/16 05:10: White Blood Count 13.5H, Red Blood Count 4.17L, Hemoglobin 12.0L, Hematocrit 36.0L, Mean Corpuscular Volume 86, Mean Corpuscular Hemoglobin 28.7, Mean Corpuscular Hemoglobin Concent 33.2, Red Cell Distribution Width 11.0L, Platelet Count 384, Mean Platelet Volume 6.2L, Neutrophils (%) (Auto) 78.5H, Lymphocytes (%) (Auto) 11.0L, Monocytes (%) (Auto) 6.3, Eosinophils (%) (Auto) 3.4H, Basophils (%) (Auto) 0.8, Sodium Level 140, Potassium Level 3.7, Chloride Level 99, Carbon Dioxide Level 30, Anion Gap 11, Blood Urea Nitrogen 65H, Creatinine 3.6H, Estimat Glomerular Filtration Rate 19.2, Glucose Level 90, Uric Acid 11.1H, Calcium Level 8.3L, Phosphorus Level 4.5, Magnesium Level 1.7, Total Bilirubin 0.4, Gamma Glutamyl Transpeptidase 31, Aspartate Amino Transf ( AST/SGOT) 14, Alanine Aminotransferase (ALT/SGPT) 8, Alkaline Phosphatase 42, Total Protein 6.0L, Albumin 3.0L, Globulin 3.0, Albumin/Globulin Ratio 1.0 06/28/16 06:00: Urine Eosinophils Rare Current Medications Medications (Trade) Dose Ordered Sig/Keila Route PRN Reason Start Time Stop Time Status Last Admin Dose Admin Acetaminophen (Tylenol) 650 mg Q4H PRN ORAL fever 06/23/16 21:00 07/23/16 20:59 Albuterol/ Ipratropium (DuoNeb 0.5-3(2.5)mg/3ml) 3 ml Q4H PRN HHN Shortness of Breath 06/26/16 09:30 07/01/16 09:29 Allopurinol (Allopurinol) 300 mg DAILY ORAL 06/29/16 09:00 07/29/16 08:59 Cefepime HCl/ Dextrose (Maxipime/D5W) 55 ml @ 110 mls/hr Q24H IV 06/23/16 21:00 06/30/16 20:59 06/27/16 22:01 Clonidine HCl (Catapres) 0.1 mg Q4H PRN ORAL BP over 170 syst 06/23/16 21:00 07/23/16 20:59 Heparin Sodium (Porcine) (Heparin 5000 units/ml) 5,000 units EVERY 12 HOURS SUBQ 06/23/16 21:00 07/23/16 20:59 06/28/16 08:08 Itraconazole (Sporanox) 200 mg Q12HR ORAL 06/23/16 21:00 06/30/16 20:59 06/28/16 08:04 Linezolid (Zyvox) 600 mg Q12HR ORAL 06/23/16 21:00 07/02/16 20:59 06/28/16 08:05 Metronidazole (Flagyl) 500 mg Q8HR ORAL 06/23/16 22:00 06/30/16 21:59 06/28/16 14:51 Nitroglycerin (Ntg) 0.4 mg Q5MIN X3 PRN SL Prn Chest Pain 06/23/16 18:15 07/23/16 18:14 Ondansetron HCl (Zofran) 4 mg Q6H PRN IVP Nausea & Vomiting 06/23/16 19:00 07/23/16 18:59 Polyethylene Glycol (Miralax) 17 gm DAILYPRN PRN ORAL Constipation 06/24/16 13:00 07/24/16 12:59 Promethazine HCl/ Codeine (Phenergan with Codeine) 5 ml Q4H PRN ORAL For Cough 06/23/16 21:00 07/23/16 20:59 06/27/16 22:00 Ranitidine HCl 150 mg 150 mg BEDTIME ORAL 06/24/16 21:00 07/24/16 20:59 06/27/16 22:01 Sodium Chloride (0.45% NS 1000ml) 1,000 ml @ 75 mls/hr [id number] IV 06/24/16 11:45 07/24/16 11:44 06/28/16 06:28 Temazepam 15 mg 15 mg HSPRN PRN ORAL Insomnia 06/23/16 21:00 06/30/16 20:59 06/26/16 21:06 SAGAR CHRIS Jun 28, 2016 18:37
[2016-06-28 20:00] VITALS: BP 136/84
[2016-06-28] MEDS: Promethazine/Codeine 5ml UD ORAL PRN (20:55)
[2016-06-28] MEDS: Cefepime HCl 500 MG in D5W 55 ML IV SCH (22:01)
[2016-06-29 00:13] VITALS: BP 139/90
[2016-06-29 04:00] VITALS: BP 147/93
[2016-06-29] MEDS: metroNIDAZOLE 500mg tab ORAL SCH ×3 (05:44→21:42)
[2016-06-29 08:00] VITALS: BP 136/93
[2016-06-29] MEDS: Heparin 5000 units/ml inj SUBQ SCH ×2 (08:30→21:00)
[2016-06-29 08:54] LABS: ALBUMIN/GLOBULIN RATIO 0.9 (1.0-2.7); CALCIUM 8.4 mg/dL (8.6-10.2); CRP QUANT 1.8 mg/dL (< 0.5); GLOMERULAR FILTRATION RATE 23.7 mL/min (>60); MAGNESIUM 1.5 mg/dL (1.7-2.5); PHOSPHORUS 4.1 mg/dL (2.5-4.8); POTASSIUM 3.6 mEQ/L (3.4-4.9); TOTAL PROTEIN 6.3 g/dL (6.6-8.7); URIC ACID 9.9 mg/dL (3.0-7.5)
--- NOTE | 2016-06-29 09:47 | General Progress Note ---
Assessment/Plan Assessment/Plan ASSESSMENT: 1. Leukocytosis - better, due to underlying Histoplasmosis pneumonia as well as steroids 2. Anemia secondary to chronic disease. 3. Decreased hemoglobin and hematocrit, rule out gastrointestinal bleed. 4. Nausea and vomiting - now improved 5. Community-acquired pneumonia on abx 6. Eosinophilia history that is resolved 7. Acute kidney injury - on HD, monitoring per renal RECOMMENDATIONS: 1. Monitor counts and maintain hgb >7 2. Monitor wbc counts 3. Followup on renal, ID, CC notes 4. Anemia w/u reviewed 5. Repeat smear has been reviewed 6. DVT ppx with heparin sq 7. GI prophylaxis prn basis 8. DW staff Thank you, Gerry Winston MD Subjective Constitutional: Reports: no symptoms HEENT: Reports: no symptoms Cardiovascular: Reports: no symptoms Respiratory: Reports: cough Gastrointestinal/Abdominal: Reports: no symptoms Genitourinary: Reports: no symptoms Neurologic/Psychiatric: Reports: no symptoms Endocrine: Reports: no symptoms Hematologic/Lymphatic: Reports: anemia Allergies: Coded Allergies: PIPERACILLIN (Verified Adverse Reaction, Intermediate, 06/20/16) pt developed diffuse macular rash per ER MD notes. unclear if due to vanco or zosyn TAZOBACTAM (Verified Adverse Reaction, Intermediate, 06/20/16) pt developed diffuse macular rash per ER MD notes. unclear if due to vanco or zosyn VANCOMYCIN (Verified Adverse Reaction, Intermediate, 06/20/16) pt developed diffuse macular rash per ER MD notes. unclear if due to vanco or zosyn Subjective stable, no bleeding, no complaints this am, has been off HD since 06/25 Objective Last 24 Hour Vital Signs Date Time Temp Pulse Resp B/P Pulse Ox O2 Delivery O2 Flow Rate FiO2 06/29/16 09:23 98.1 82 17 10 Room Air 06/29/16 09:05 94 Room Air 21 06/29/16 09:05 Room Air 21 06/29/16 09:05 95 18 Room Air 06/29/16 04:00 98.2 71 20 147/93 93 Room Air 06/29/16 00:13 98.7 80 20 139/90 92 Room Air 06/28/16 20:00 98.1 77 22 136/84 94 Room Air 06/28/16 19:30 112 18 Room Air 06/28/16 19:30 Room Air 21 06/28/16 19:30 93 Room Air 21 06/28/16 16:42 98.2 74 19 132/85 95 Room Air 06/28/16 12:00 98.2 77 21 134/84 96 Room Air Intake and Output 06/28/16 06/29/16 19:00 07:00 Intake Total 1620 ml 375 ml Balance 1620 ml 375 ml Intake Oral 720 ml IV Total 900 ml 375 ml # Voids 1 Laboratory Tests 06/29/16 08:00: Sodium Level 141, Potassium Level 3.6, Chloride Level 99, Carbon Dioxide Level 25, Anion Gap 17H, Blood Urea Nitrogen 52H, Creatinine 3.0H, Estimat Glomerular Filtration Rate 23.7, Glucose Level 133H, Uric Acid 9.9H, Calcium Level 8.4L, Phosphorus Level 4.1, Magnesium Level 1.5L, Total Bilirubin 0.4, Aspartate Amino Transf (AST/SGOT) 14, Alanine Aminotransferase (ALT/SGPT) 9, Alkaline Phosphatase 43, C-Reactive Protein, Quantitative 1.8H, Pro-B-Type Natriuretic Peptide 134H, Total Protein 6.3L, Albumin 3.1L, Globulin 3.2, Albumin/Globulin Ratio 0.9L Height (Feet): 5 Height (Inches): 5.00 Weight (Pounds): 170 General Appearance: no apparent distress EENT: TMs normal Neck: supple Cardiovascular: regular rhythm Respiratory/Chest: normal breath sounds Abdomen: soft Extremities: normal inspection Edema: 1+ Leg (L), 1+ Leg (R) Edema: mild edema Neurologic: alert Skin: warm/dry Gerry Winston Jun 29, 2016 09:47
--- NOTE | 2016-06-29 11:54 | General Progress Note ---
Assessment/Plan Status: stable Assessment/Plan Status: Acute renal failure ( Allergic vs Sepsis) / RESOLVING NOW Urine positive for Eosinophils leading to Allergic etiology IMPROVING Other: 1) Lung abscess (2) Pneumonia (3) HTN (hypertension) (4) Adverse reaction to antibiotic (5) Pleurisy (6) HCAP (healthcare-associated pneumonia) Plan: can DC dialysis catheter monitor renal parameters- HD last 06/25, Cr lowering without HD Slow hydrate ok to DC from renal stand point Subjective ROS Limited/Unobtainable: No Allergies: Coded Allergies: PIPERACILLIN (Verified Adverse Reaction, Intermediate, 06/20/16) pt developed diffuse macular rash per ER MD notes. unclear if due to vanco or zosyn TAZOBACTAM (Verified Adverse Reaction, Intermediate, 06/20/16) pt developed diffuse macular rash per ER MD notes. unclear if due to vanco or zosyn VANCOMYCIN (Verified Adverse Reaction, Intermediate, 06/20/16) pt developed diffuse macular rash per ER MD notes. unclear if due to vanco or zosyn Objective Last 24 Hour Vital Signs Date Time Temp Pulse Resp B/P Pulse Ox O2 Delivery O2 Flow Rate FiO2 06/29/16 09:05 94 Room Air 21 06/29/16 09:05 Room Air 21 06/29/16 09:05 95 18 Room Air 21 06/29/16 08:00 98.1 82 17 136/93 100 Room Air 06/29/16 04:00 98.2 71 20 147/93 93 Room Air 06/29/16 00:13 98.7 80 20 139/90 92 Room Air 06/28/16 20:00 98.1 77 22 136/84 94 Room Air 06/28/16 19:30 112 18 Room Air 21 06/28/16 19:30 Room Air 21 06/28/16 19:30 93 Room Air 21 06/28/16 16:42 98.2 74 19 132/85 95 Room Air 06/28/16 12:00 98.2 77 21 134/84 96 Room Air Intake and Output 06/28/16 06/29/16 19:00 07:00 Intake Total 1620 ml 450 ml Balance 1620 ml 450 ml Intake Oral 720 ml IV Total 900 ml 450 ml # Voids 1 Laboratory Tests 06/29/16 08:00: Sodium Level 141, Potassium Level 3.6, Chloride Level 99, Carbon Dioxide Level 25, Anion Gap 17H, Blood Urea Nitrogen 52H, Creatinine 3.0H, Estimat Glomerular Filtration Rate 23.7, Glucose Level 133H, Uric Acid 9.9H, Calcium Level 8.4L, Phosphorus Level 4.1, Magnesium Level 1.5L, Total Bilirubin 0.4, Aspartate Amino Transf (AST/SGOT) 14, Alanine Aminotransferase (ALT/SGPT) 9, Alkaline Phosphatase 43, C-Reactive Protein, Quantitative 1.8H, Pro-B-Type Natriuretic Peptide 134H, Total Protein 6.3L, Albumin 3.1L, Globulin 3.2, Albumin/Globulin Ratio 0.9L Height (Feet): 5 Height (Inches): 5.00 Weight (Pounds): 170 General Appearance: no apparent distress Objective PE no change MILA GARCIA Jun 29, 2016 11:54
[2016-06-29 12:09] VITALS: BP 136/84
[2016-06-29] MEDS: Magnesium Oxide 400mg tab ORAL SCH ×2 (12:17→18:29)
--- NOTE | 2016-06-29 13:48 | General Progress Note ---
Assessment/Plan Problem List: (1) Histoplasmosis pneumonia ICD Codes: B39.2 - Pulmonary histoplasmosis capsulati, unspecified SNOMED: 562480266 (2) Vomiting ICD Codes: R11.10 - Vomiting, unspecified SNOMED: 641992913 (3) Adverse reaction to antibiotic ICD Codes: T36.95XA - Adverse effect of unspecified systemic antibiotic, initial encounter SNOMED: 509450269, 911502913 Qualifiers: Qualified Codes: T36.95XA - Adverse effect of unspecified systemic antibiotic, initial encounter (4) Cavitary lung disease ICD Codes: J98.4 - Other disorders of lung SNOMED: 57039479 (5) Pneumonia ICD Codes: J18.9 - Pneumonia, unspecified organism SNOMED: 005462557 (6) HTN (hypertension) ICD Codes: I10 - Essential (primary) hypertension SNOMED: 51122655 Qualifiers: Qualified Codes: I10 - Essential (primary) hypertension (7) Hyperlipidemia, mixed ICD Codes: E78.2 - Mixed hyperlipidemia SNOMED: 036302700 (8) Pleurisy ICD Codes: R09.1 - Pleurisy SNOMED: 009341235 Status: progressing Assessment/Plan abx per pulmonary and id multiple foci of pna afebrile fungal pna and bacterial pna Subjective ROS Limited/Unobtainable: Yes Constitutional: Reports: no symptoms Allergies: Coded Allergies: PIPERACILLIN (Verified Adverse Reaction, Intermediate, 06/20/16) pt developed diffuse macular rash per ER MD notes. unclear if due to vanco or zosyn TAZOBACTAM (Verified Adverse Reaction, Intermediate, 06/20/16) pt developed diffuse macular rash per ER MD notes. unclear if due to vanco or zosyn VANCOMYCIN (Verified Adverse Reaction, Intermediate, 06/20/16) pt developed diffuse macular rash per ER MD notes. unclear if due to vanco or zosyn Objective Last 24 Hour Vital Signs Date Time Temp Pulse Resp B/P Pulse Ox O2 Delivery O2 Flow Rate FiO2 06/29/16 12:09 97.7 72 20 136/84 96 Room Air 06/29/16 09:05 94 Room Air 21 06/29/16 09:05 Room Air 21 06/29/16 09:05 95 18 Room Air 21 06/29/16 08:00 98.1 82 17 136/93 100 Room Air 06/29/16 04:00 98.2 71 20 147/93 93 Room Air 06/29/16 00:13 98.7 80 20 139/90 92 Room Air 06/28/16 20:00 98.1 77 22 136/84 94 Room Air 06/28/16 19:30 112 18 Room Air 06/28/16 19:30 Room Air 21 06/28/16 19:30 93 Room Air 21 06/28/16 16:42 98.2 74 19 132/85 95 Room Air Intake and Output 06/28/16 06/29/16 19:00 07:00 Intake Total 1620 ml 450 ml Balance 1620 ml 450 ml Intake Oral 720 ml IV Total 900 ml 450 ml # Voids 1 Laboratory Tests 06/29/16 08:00: Sodium Level 141, Potassium Level 3.6, Chloride Level 99, Carbon Dioxide Level 25, Anion Gap 17H, Blood Urea Nitrogen 52H, Creatinine 3.0H, Estimat Glomerular Filtration Rate 23.7, Glucose Level 133H, Uric Acid 9.9H, Calcium Level 8.4L, Phosphorus Level 4.1, Magnesium Level 1.5L, Total Bilirubin 0.4, Aspartate Amino Transf (AST/SGOT) 14, Alanine Aminotransferase (ALT/SGPT) 9, Alkaline Phosphatase 43, C-Reactive Protein, Quantitative 1.8H, Pro-B-Type Natriuretic Peptide 134H, Total Protein 6.3L, Albumin 3.1L, Globulin 3.2, Albumin/Globulin Ratio 0.9L Height (Feet): 5 Height (Inches): 5.00 Weight (Pounds): 170 EENT: PERRL/EOMI Neck: supple Cardiovascular: normal rate Respiratory/Chest: lungs clear Abdomen: soft Jesse Dean MD Jun 29, 2016 13:48
[2016-06-29 16:29] VITALS: BP 139/80
--- NOTE | 2016-06-29 16:39 | Infectious Diseases Prog Note ---
Assessment/Plan Problems: (1) Lung abscess Assessment & Plan: continue Zyvox , cefepime and flagyl for 4 weeks , recommend to repeat CT scan of the chest in 4 weeks for follow up, sputum culture showed normal keo so far. needs follow up with PCP after discharge. (2) HCAP (healthcare-associated pneumonia) Assessment & Plan: improving, continue zyvox , and cefepime empirically, sputum and blood culture are negative so far . (3) Adverse reaction to antibiotic Assessment & Plan: unclear whether due to vancomycin VS zosyn , most likely vancomycin since it happened fast after infusion, suspect red man syndrome, will check blood eosinophils counts in blood. avoid both classes of antibiotics for now, ok to use cephalosporins since he received it last admission with no reaction (4) Histoplasmosis pneumonia Assessment & Plan: continue itraconazole, monitor LFT (5) LISET (acute kidney injury) Assessment & Plan: had HD cath placed by renal, and started on HD, avoid nephrotoxic meds. (6) Leukocytosis Assessment & Plan: due to steroids , now improving after D/C, since there is no benefit of steroids in this case I stopped it. Subjective Respiratory: Reports: productive cough Allergies: Coded Allergies: PIPERACILLIN (Verified Adverse Reaction, Intermediate, 06/20/16) pt developed diffuse macular rash per ER MD notes. unclear if due to vanco or zosyn TAZOBACTAM (Verified Adverse Reaction, Intermediate, 06/20/16) pt developed diffuse macular rash per ER MD notes. unclear if due to vanco or zosyn VANCOMYCIN (Verified Adverse Reaction, Intermediate, 06/20/16) pt developed diffuse macular rash per ER MD notes. unclear if due to vanco or zosyn All Systems: reviewed and negative except above Subjective he was doing ok, still have productive cough with yellowish phlegm, no fever, or chills, no vomiting. no skin rash or hives, tolerated current antibiotics well. Objective Vital Signs Last 24 Hour Vital Signs Date Time Temp Pulse Resp B/P Pulse Ox O2 Delivery O2 Flow Rate FiO2 06/29/16 16:29 96.3 76 18 139/80 97 Room Air 06/29/16 12:09 97.7 72 20 136/84 96 Room Air 06/29/16 09:05 94 Room Air 21 06/29/16 09:05 Room Air 21 1/25/17 09:05 95 18 Room Air 21 06/29/16 08:00 98.1 82 17 136/93 100 Room Air 06/29/16 04:00 98.2 71 20 147/93 93 Room Air 06/29/16 00:13 98.7 80 20 139/90 92 Room Air 06/28/16 20:00 98.1 77 22 136/84 94 Room Air 06/28/16 19:30 112 18 Room Air 06/28/16 19:30 Room Air 06/28/16 19:30 93 Room Air 21 06/28/16 16:42 98.2 74 19 132/85 95 Room Air Height (Feet): 5 Height (Inches): 5.00 Weight (Pounds): 170 General Appearance: WD/WN, no acute distress HEENT: normocephalic, atraumatic, anicteric, mucous membranes moist Respiratory/Chest: chest wall non-tender, lungs clear, normal breath sounds, no respiratory distress, no accessory muscle use, decreased breath sounds, crackles/rales Cardiovascular: normal peripheral pulses, normal rate, regular rhythm, no gallop/murmur Abdomen: normal bowel sounds, soft, non tender, no organomegaly, non distended , no mass, no scars Extremities: no cyanosis, no clubbing Skin: no rash, no lesions, no ulcers Laboratory Tests Test 06/29/16 08:00 Sodium Level 141 mEQ/L (135-145) Potassium Level 3.6 mEQ/L (3.4-4.9) Chloride Level 99 mEQ/L (98-107) Carbon Dioxide Level 25 mEQ/L (20-30) Anion Gap 17 (5-15) H Blood Urea Nitrogen 52 mg/dL (7-23) H Creatinine 3.0 mg/dL (0.7-1.2) H Estimat Glomerular Filtration Rate 23.7 mL/min (>60) Glucose Level 133 mg/dL (74-106) H Uric Acid 9.9 mg/dL (3.0-7.5) H Calcium Level 8.4 mg/dL (8.6-10.2) L Phosphorus Level 4.1 mg/dL (2.5-4.8) Magnesium Level 1.5 mg/dL (1.7-2.5) L Total Bilirubin 0.4 mg/dL (0.0-1.2) Aspartate Amino Transf (AST/SGOT) 14 U/L (5-40) Alanine Aminotransferase (ALT/SGPT) 9 U/L (3-41) Alkaline Phosphatase 43 U/L (40-129) C-Reactive Protein, Quantitative 1.8 mg/dL (< 0.5) H Pro-B-Type Natriuretic Peptide 134 pg/mL (0-125) H Total Protein 6.3 g/dL (6.6-8.7) L Albumin 3.1 g/dL (3.5-5.2) L Globulin 3.2 g/dL Albumin/Globulin Ratio 0.9 (1.0-2.7) L Current Medications Medications (Trade) Dose Ordered Sig/Keila Route PRN Reason Start Time Stop Time Status Last Admin Dose Admin Acetaminophen (Tylenol) 650 mg Q4H PRN ORAL fever 06/23/16 21:00 07/23/16 20:59 Albuterol/ Ipratropium (DuoNeb 0.5-3(2.5)mg/3ml) 3 ml Q4H PRN HHN Shortness of Breath 06/26/16 09:30 07/01/16 09:29 Allopurinol (Allopurinol) 300 mg DAILY ORAL 06/29/16 09:00 07/29/16 08:59 06/29/16 08:26 Cefepime HCl/ Dextrose (Maxipime/D5W) 55 ml @ 110 mls/hr Q24H IV 06/23/16 21:00 06/30/16 20:59 06/28/16 22:01 Clonidine HCl (Catapres) 0.1 mg Q4H PRN ORAL BP over 170 syst 06/23/16 21:00 07/23/16 20:59 Heparin Sodium (Porcine) (Heparin 5000 units/ml) 5,000 units EVERY 12 HOURS SUBQ 06/23/16 21:00 07/23/16 20:59 06/29/16 08:30 Itraconazole (Sporanox) 200 mg Q12HR ORAL 06/23/16 21:00 06/30/16 20:59 06/29/16 08:27 Linezolid (Zyvox) 600 mg Q12HR ORAL 06/23/16 21:00 07/02/16 20:59 06/29/16 08:26 Magnesium Oxide (Mag-Ox 400mg) 400 mg THREE TIMES A DAY ORAL 06/29/16 13:00 07/29/16 12:59 06/29/16 12:17 Metronidazole (Flagyl) 500 mg Q8HR ORAL 06/23/16 22:00 06/30/16 21:59 06/29/16 13:54 Nitroglycerin (Ntg) 0.4 mg Q5MIN X3 PRN SL Prn Chest Pain 06/23/16 18:15 07/23/16 18:14 Ondansetron HCl (Zofran) 4 mg Q6H PRN IVP Nausea & Vomiting 06/23/16 19:00 07/23/16 18:59 Polyethylene Glycol (Miralax) 17 gm DAILYPRN PRN ORAL Constipation 06/24/16 13:00 07/24/16 12:59 Promethazine HCl/ Codeine (Phenergan with Codeine) 5 ml Q4H PRN ORAL For Cough 06/23/16 21:00 07/23/16 20:59 06/28/16 20:55 Ranitidine HCl 150 mg 150 mg BEDTIME ORAL 06/24/16 21:00 07/24/16 20:59 06/28/16 20:55 Sodium Chloride (0.45% NS 1000ml) 1,000 ml @ 75 mls/hr [id number] IV 06/24/16 11:45 07/24/16 11:44 06/29/16 12:12 Temazepam 15 mg 15 mg HSPRN PRN ORAL Insomnia 06/23/16 21:00 06/30/16 20:59 06/28/16 20:55 Erin Navarrete M.D. Jun 29, 2016 16:39
--- NOTE | 2016-06-29 16:53 | Pulmonology Progress Note ---
Assessment/Plan Problems: (1) Lung abscess (2) Pneumonia (3) HTN (hypertension) (4) Adverse reaction to antibiotic (5) Pleurisy (6) HCAP (healthcare-associated pneumonia) Assessment/Plan blood cultures negative no sputum culture yet. keep on med/surg check electrolytes continue antibiotics improving might go home with abx Subjective ROS Limited/Unobtainable: No Interval Events: feeling better Allergies: Coded Allergies: PIPERACILLIN (Verified Adverse Reaction, Intermediate, 06/20/16) pt developed diffuse macular rash per ER MD notes. unclear if due to vanco or zosyn TAZOBACTAM (Verified Adverse Reaction, Intermediate, 06/20/16) pt developed diffuse macular rash per ER MD notes. unclear if due to vanco or zosyn VANCOMYCIN (Verified Adverse Reaction, Intermediate, 06/20/16) pt developed diffuse macular rash per ER MD notes. unclear if due to vanco or zosyn Objective Last 24 Hour Vital Signs Date Time Temp Pulse Resp B/P Pulse Ox O2 Delivery O2 Flow Rate FiO2 06/29/16 16:29 96.3 76 18 139/80 97 Room Air 06/29/16 12:09 97.7 72 20 136/84 96 Room Air 06/29/16 09:05 94 Room Air 21 06/29/16 09:05 Room Air 21 06/29/16 09:05 95 18 Room Air 21 06/29/16 08:00 98.1 82 17 136/93 100 Room Air 06/29/16 04:00 98.2 71 20 147/93 93 Room Air 06/29/16 00:13 98.7 80 20 139/90 92 Room Air 06/28/16 20:00 98.1 77 22 136/84 94 Room Air 06/28/16 19:30 112 18 Room Air 21 06/28/16 19:30 Room Air 21 06/28/16 19:30 93 Room Air 21 Intake and Output 06/28/16 06/29/16 19:00 07:00 Intake Total 1620 ml 450 ml Balance 1620 ml 450 ml Intake Oral 720 ml IV Total 900 ml 450 ml # Voids 1 General Appearance: WD/WN HEENT: normocephalic Respiratory/Chest: chest wall non-tender, lungs clear Cardiovascular: normal peripheral pulses, normal rate Abdomen: normal bowel sounds, soft, non tender Laboratory Tests 06/29/16 08:00: Sodium Level 141, Potassium Level 3.6, Chloride Level 99, Carbon Dioxide Level 25, Anion Gap 17H, Blood Urea Nitrogen 52H, Creatinine 3.0H, Estimat Glomerular Filtration Rate 23.7, Glucose Level 133H, Uric Acid 9.9H, Calcium Level 8.4L, Phosphorus Level 4.1, Magnesium Level 1.5L, Total Bilirubin 0.4, Aspartate Amino Transf (AST/SGOT) 14, Alanine Aminotransferase (ALT/SGPT) 9, Alkaline Phosphatase 43, C-Reactive Protein, Quantitative 1.8H, Pro-B-Type Natriuretic Peptide 134H, Total Protein 6.3L, Albumin 3.1L, Globulin 3.2, Albumin/Globulin Ratio 0.9L Current Medications Medications (Trade) Dose Ordered Sig/Keila Route PRN Reason Start Time Stop Time Status Last Admin Dose Admin Acetaminophen (Tylenol) 650 mg Q4H PRN ORAL fever 06/23/16 21:00 07/23/16 20:59 Albuterol/ Ipratropium (DuoNeb 0.5-3(2.5)mg/3ml) 3 ml Q4H PRN HHN Shortness of Breath 06/26/16 09:30 07/01/16 09:29 Allopurinol (Allopurinol) 300 mg DAILY ORAL 06/29/16 09:00 07/29/16 08:59 06/29/16 08:26 Cefepime HCl/ Dextrose (Maxipime/D5W) 55 ml @ 110 mls/hr Q24H IV 06/23/16 21:00 06/30/16 20:59 06/28/16 22:01 Clonidine HCl (Catapres) 0.1 mg Q4H PRN ORAL BP over 170 syst 06/23/16 21:00 07/23/16 20:59 Heparin Sodium (Porcine) (Heparin 5000 units/ml) 5,000 units EVERY 12 HOURS SUBQ 06/23/16 21:00 07/23/16 20:59 06/29/16 08:30 Itraconazole (Sporanox) 200 mg Q12HR ORAL 06/23/16 21:00 06/30/16 20:59 06/29/16 08:27 Linezolid (Zyvox) 600 mg Q12HR ORAL 06/23/16 21:00 07/02/16 20:59 06/29/16 08:26 Magnesium Oxide (Mag-Ox 400mg) 400 mg THREE TIMES A DAY ORAL 06/29/16 13:00 07/29/16 12:59 06/29/16 12:17 Metronidazole (Flagyl) 500 mg Q8HR ORAL 06/23/16 22:00 06/30/16 21:59 06/29/16 13:54 Nitroglycerin (Ntg) 0.4 mg Q5MIN X3 PRN SL Prn Chest Pain 06/23/16 18:15 07/23/16 18:14 Ondansetron HCl (Zofran) 4 mg Q6H PRN IVP Nausea & Vomiting 06/23/16 19:00 07/23/16 18:59 Polyethylene Glycol (Miralax) 17 gm DAILYPRN PRN ORAL Constipation 06/24/16 13:00 07/24/16 12:59 Promethazine HCl/ Codeine (Phenergan with Codeine) 5 ml Q4H PRN ORAL For Cough 06/23/16 21:00 07/23/16 20:59 06/28/16 20:55 Ranitidine HCl 150 mg 150 mg BEDTIME ORAL 06/24/16 21:00 07/24/16 20:59 06/28/16 20:55 Sodium Chloride (0.45% NS 1000ml) 1,000 ml @ 75 mls/hr [id number] IV 06/24/16 11:45 07/24/16 11:44 06/29/16 12:12 Temazepam 15 mg 15 mg HSPRN PRN ORAL Insomnia 06/23/16 21:00 06/30/16 20:59 06/28/16 20:55 SAGAR CHRIS Jun 29, 2016 16:53
--- NOTE | 2016-06-29 17:28 | Cardiac Electrophysiology PN ---
Assessment/Plan Assessment/Plan 1. Sinus tachycardia due to sepsis and renal failure. Resolved. Off tele. 2. Hypertension, stable off any antihypertensives. 3. History of histoplasmosis. 4. Shortness of breath due to healthcare-associated pneumonia. On empiric Zyvox . 5. Acute renal failure. Last HD 06/25/16. Dialysis Catheter to be removed in am. HEIDI RN Subjective Subjective No chest pain or SOB. No dialysis for 5 days now. Objective Last 24 Hour Vital Signs Date Time Temp Pulse Resp B/P Pulse Ox O2 Delivery O2 Flow Rate FiO2 06/29/16 16:29 96.3 76 18 139/80 97 Room Air 06/29/16 12:09 97.7 72 20 136/84 96 Room Air 06/29/16 09:05 94 Room Air 21 06/29/16 09:05 Room Air 21 06/29/16 09:05 95 18 Room Air 21 06/29/16 08:00 98.1 82 17 136/93 100 Room Air 06/29/16 04:00 98.2 71 20 147/93 93 Room Air 06/29/16 00:13 98.7 80 20 139/90 92 Room Air 06/28/16 20:00 98.1 77 22 136/84 94 Room Air 06/28/16 19:30 112 18 Room Air 21 06/28/16 19:30 Room Air 21 06/28/16 19:30 93 Room Air 21 Intake and Output 06/28/16 06/29/16 19:00 07:00 Intake Total 1620 ml 450 ml Balance 1620 ml 450 ml Intake Oral 720 ml IV Total 900 ml 450 ml # Voids 1 Laboratory Tests Test 06/29/16 08:00 Sodium Level 141 mEQ/L (135-145) Potassium Level 3.6 mEQ/L (3.4-4.9) Chloride Level 99 mEQ/L (98-107) Carbon Dioxide Level 25 mEQ/L (20-30) Anion Gap 17 (5-15) H Blood Urea Nitrogen 52 mg/dL (7-23) H Creatinine 3.0 mg/dL (0.7-1.2) H Estimat Glomerular Filtration Rate 23.7 mL/min (>60) Glucose Level 133 mg/dL (74-106) H Uric Acid 9.9 mg/dL (3.0-7.5) H Calcium Level 8.4 mg/dL (8.6-10.2) L Phosphorus Level 4.1 mg/dL (2.5-4.8) Magnesium Level 1.5 mg/dL (1.7-2.5) L Total Bilirubin 0.4 mg/dL (0.0-1.2) Aspartate Amino Transf (AST/SGOT) 14 U/L (5-40) Alanine Aminotransferase (ALT/SGPT) 9 U/L (3-41) Alkaline Phosphatase 43 U/L (40-129) C-Reactive Protein, Quantitative 1.8 mg/dL (< 0.5) H Pro-B-Type Natriuretic Peptide 134 pg/mL (0-125) H Total Protein 6.3 g/dL (6.6-8.7) L Albumin 3.1 g/dL (3.5-5.2) L Globulin 3.2 g/dL Albumin/Globulin Ratio 0.9 (1.0-2.7) L Objective NECK: Shows no JVD. R IJ dialysis catheter in place. LUNGS: Coarse rhonchi. CARDIOVASCULAR: Shows regular S1 and S2 with no gallop or murmur. ABDOMEN: Soft. EXTREMITIES: No pitting edema. JOHN PENA Jun 29, 2016 17:28
[2016-06-29] MEDS: Cefepime HCl 500 MG in D5W 55 ML IV SCH (21:00)
[2016-06-29 23:14] VITALS: BP 140/97
[2016-06-30] VITALS: BP 139/91
[2016-06-30 04:00] VITALS: BP 135/81
[2016-06-30] MEDS: metroNIDAZOLE 500mg tab ORAL SCH ×3 (05:33→21:15)
[2016-06-30 07:20] LABS: BASOPHILS % (AUTO) 0.6 % (0.0-2.0); EOSINOPHILS % (AUTO) 2.9 % (0.0-3.0); LYMPHOCYTES % (AUTO) 15.7 % (20.0-45.0); MEAN CORPUSCULAR HEMOGLOBIN 29.5 PG (27.0-31.0); MEAN CORPUSCULAR HGB CONC 34.8 G/DL (32.0-36.0); MEAN CORPUSCULAR VOLUME 85 FL (80-99); MEAN PLATELET VOLUME 5.9 FL (6.5-10.1); MONOCYTES % (AUTO) 9.4 % (1.0-10.0); NEUTROPHILS % (AUTO) 71.5 % (45.0-75.0); PLATELET COUNT 310 K/UL (150-450); RED BLOOD COUNT 3.91 M/UL (4.70-6.10); RED CELL DISTRIBUTION WIDTH 11.1 % (11.6-14.8); WHITE BLOOD COUNT 9.8 K/UL (4.8-10.8)
[2016-06-30 07:47] LABS: CALCIUM 8.4 mg/dL (8.6-10.2); CREATININE 2.3 mg/dL (0.7-1.2); GLOMERULAR FILTRATION RATE 32.2 mL/min (>60)
[2016-06-30 08:00] VITALS: BP 133/78
[2016-06-30] MEDS: Magnesium Oxide 400mg tab ORAL SCH ×3 (09:02→17:28)
[2016-06-30] MEDS: Heparin 5000 units/ml inj SUBQ SCH ×2 (09:11→20:11)
--- NOTE | 2016-06-30 11:01 | General Progress Note ---
Assessment/Plan Status: stable Status Narrative Cr lower Assessment/Plan Status: Acute renal failure ( Allergic vs Sepsis) / RESOLVING NOW Urine positive for Eosinophils leading to Allergic etiology IMPROVING Other: 1) Lung abscess (2) Pneumonia (3) HTN (hypertension) (4) Adverse reaction to antibiotic (5) Pleurisy (6) HCAP (healthcare-associated pneumonia) Plan: I discontinued the right jugular dialysis catheter monitor renal parameters- HD last 06/25, Cr lowering without HD Slow hydrate ok to DC from renal stand point meds reviewed Subjective ROS Limited/Unobtainable: No Allergies: Coded Allergies: PIPERACILLIN (Verified Adverse Reaction, Intermediate, 06/20/16) pt developed diffuse macular rash per ER MD notes. unclear if due to vanco or zosyn TAZOBACTAM (Verified Adverse Reaction, Intermediate, 06/20/16) pt developed diffuse macular rash per ER MD notes. unclear if due to vanco or zosyn VANCOMYCIN (Verified Adverse Reaction, Intermediate, 06/20/16) pt developed diffuse macular rash per ER MD notes. unclear if due to vanco or zosyn Objective Last 24 Hour Vital Signs Date Time Temp Pulse Resp B/P Pulse Ox O2 Delivery O2 Flow Rate FiO2 06/30/16 08:00 97.3 90 20 133/78 96 Room Air 06/30/16 07:01 97 Room Air 06/30/16 07:01 86 18 Room Air 06/30/16 06:59 Room Air 06/30/16 04:00 97.9 76 18 135/81 95 Room Air 06/30/16 00:00 98.0 83 19 139/91 97 Room Air 06/29/16 23:14 97.0 85 20 140/97 97 Room Air 06/29/16 19:04 Room Air 21 06/29/16 19:03 94 Room Air 21 06/29/16 19:03 81 18 Room Air 21 06/29/16 16:29 96.3 76 18 139/80 97 Room Air 06/29/16 12:09 97.7 72 20 136/84 96 Room Air Intake and Output 06/29/16 06/30/16 19:00 07:00 Intake Total 1750 ml 880 ml Balance 1750 ml 880 ml Intake Oral 850 ml 600 ml IV Total 900 ml 280 ml # Voids 2 2 # Bowel Movements 1 Laboratory Tests 06/30/16 06:50: White Blood Count 9.8, Red Blood Count 3.91L, Hemoglobin 11.5L, Hematocrit 33.2L , Mean Corpuscular Volume 85, Mean Corpuscular Hemoglobin 29.5, Mean Corpuscular Hemoglobin Concent 34.8, Red Cell Distribution Width 11.1L, Platelet Count 310, Mean Platelet Volume 5.9L, Neutrophils (%) (Auto) 71.5, Lymphocytes (%) (Auto) 15.7L, Monocytes (%) (Auto) 9.4, Eosinophils (%) (Auto) 2.9, Basophils (%) (Auto) 0.6, Sodium Level 142, Potassium Level 4.0, Chloride Level 104, Carbon Dioxide Level 26, Anion Gap 12, Blood Urea Nitrogen 39H, Creatinine 2.3H, Estimat Glomerular Filtration Rate 32.2, Glucose Level 93, Calcium Level 8.4L, Phosphorus Level 4.0, Total Bilirubin 0.5, Aspartate Amino Transf (AST/SGOT) 13, Alanine Aminotransferase (ALT/SGPT) 8, Alkaline Phosphatase 40, Total Protein 6.0L, Albumin 3.0L, Globulin 3.0, Albumin/ Globulin Ratio 1.0 Height (Feet): 5 Height (Inches): 5.00 Weight (Pounds): 170 General Appearance: no apparent distress Objective PE no change MILA GARCIA Jun 30, 2016 11:01
--- NOTE | 2016-06-30 11:48 | General Progress Note ---
Assessment/Plan Problem List: (1) Histoplasmosis pneumonia ICD Codes: B39.2 - Pulmonary histoplasmosis capsulati, unspecified SNOMED: 083144313 (2) Vomiting ICD Codes: R11.10 - Vomiting, unspecified SNOMED: 320518909 (3) Adverse reaction to antibiotic ICD Codes: T36.95XA - Adverse effect of unspecified systemic antibiotic, initial encounter SNOMED: 351405854, 308529089 Qualifiers: Qualified Codes: T36.95XA - Adverse effect of unspecified systemic antibiotic, initial encounter (4) Cavitary lung disease ICD Codes: J98.4 - Other disorders of lung SNOMED: 13104511 (5) Pneumonia ICD Codes: J18.9 - Pneumonia, unspecified organism SNOMED: 112587801 (6) HTN (hypertension) ICD Codes: I10 - Essential (primary) hypertension SNOMED: 71123589 Qualifiers: Qualified Codes: I10 - Essential (primary) hypertension (7) Hyperlipidemia, mixed ICD Codes: E78.2 - Mixed hyperlipidemia SNOMED: 067333036 (8) Pleurisy ICD Codes: R09.1 - Pleurisy SNOMED: 392140023 Status: progressing Assessment/Plan histoplasmosis pna afebrle vitalst stable reviewed chart and labs resp insuff Subjective ROS Limited/Unobtainable: Yes Constitutional: Reports: no symptoms Allergies: Coded Allergies: PIPERACILLIN (Verified Adverse Reaction, Intermediate, 06/20/16) pt developed diffuse macular rash per ER MD notes. unclear if due to vanco or zosyn TAZOBACTAM (Verified Adverse Reaction, Intermediate, 06/20/16) pt developed diffuse macular rash per ER MD notes. unclear if due to vanco or zosyn VANCOMYCIN (Verified Adverse Reaction, Intermediate, 06/20/16) pt developed diffuse macular rash per ER MD notes. unclear if due to vanco or zosyn Objective Last 24 Hour Vital Signs Date Time Temp Pulse Resp B/P Pulse Ox O2 Delivery O2 Flow Rate FiO2 06/30/16 08:00 97.3 90 20 133/78 96 Room Air 06/30/16 07:01 97 Room Air 06/30/16 07:01 86 18 Room Air 06/30/16 06:59 Room Air 06/30/16 04:00 97.9 76 18 135/81 95 Room Air 06/30/16 00:00 98.0 83 19 139/91 97 Room Air 06/29/16 23:14 97.0 85 20 140/97 97 Room Air 06/29/16 19:04 Room Air 21 06/29/16 19:03 94 Room Air 21 06/29/16 19:03 81 18 Room Air 21 06/29/16 16:29 96.3 76 18 139/80 97 Room Air 06/29/16 12:09 97.7 72 20 136/84 96 Room Air Intake and Output 06/29/16 06/30/16 19:00 07:00 Intake Total 1750 ml 880 ml Balance 1750 ml 880 ml Intake Oral 850 ml 600 ml IV Total 900 ml 280 ml # Voids 2 2 # Bowel Movements 1 Laboratory Tests 06/30/16 06:50: White Blood Count 9.8, Red Blood Count 3.91L, Hemoglobin 11.5L, Hematocrit 33.2L , Mean Corpuscular Volume 85, Mean Corpuscular Hemoglobin 29.5, Mean Corpuscular Hemoglobin Concent 34.8, Red Cell Distribution Width 11.1L, Platelet Count 310, Mean Platelet Volume 5.9L, Neutrophils (%) (Auto) 71.5, Lymphocytes (%) (Auto) 15.7L, Monocytes (%) (Auto) 9.4, Eosinophils (%) (Auto) 2.9, Basophils (%) (Auto) 0.6, Sodium Level 142, Potassium Level 4.0, Chloride Level 104, Carbon Dioxide Level 26, Anion Gap 12, Blood Urea Nitrogen 39H, Creatinine 2.3H, Estimat Glomerular Filtration Rate 32.2, Glucose Level 93, Calcium Level 8.4L, Phosphorus Level 4.0, Total Bilirubin 0.5, Aspartate Amino Transf (AST/SGOT) 13, Alanine Aminotransferase (ALT/SGPT) 8, Alkaline Phosphatase 40, Total Protein 6.0L, Albumin 3.0L, Globulin 3.0, Albumin/ Globulin Ratio 1.0 Height (Feet): 5 Height (Inches): 5.00 Weight (Pounds): 170 EENT: PERRL/EOMI Neck: supple Cardiovascular: normal rate Respiratory/Chest: lungs clear Abdomen: soft Jesse Dean MD Jun 30, 2016 11:48
[2016-06-30 12:00] VITALS: BP 136/85
--- NOTE | 2016-06-30 12:44 | General Progress Note ---
Assessment/Plan Assessment/Plan ASSESSMENT: 1. Leukocytosis - better, due to underlying Histoplasmosis pneumonia as well as steroids 2. Anemia secondary to chronic disease. 3. Decreased hemoglobin and hematocrit, rule out GI bleed. 4. Nausea and vomiting - now improved 5. Community-acquired pneumonia on abx 6. Eosinophilia history that is resolved 7. Acute kidney injury - on HD, monitoring per renal RECOMMENDATIONS: 1. Monitor counts and maintain hgb >7 2. Monitor wbc counts 3. Followup on renal, ID, CC notes 4. Anemia w/u reviewed 5. Repeat smear has been reviewed 6. DVT ppx with heparin sq 7. GI prophylaxis prn basis 8. DW staff Thank you, Gerry Winston MD Subjective Constitutional: Reports: no symptoms HEENT: Reports: no symptoms Cardiovascular: Reports: no symptoms Respiratory: Reports: no symptoms Gastrointestinal/Abdominal: Reports: poor appetite Genitourinary: Reports: no symptoms Neurologic/Psychiatric: Reports: no symptoms Endocrine: Reports: no symptoms Hematologic/Lymphatic: Reports: anemia Allergies: Coded Allergies: PIPERACILLIN (Verified Adverse Reaction, Intermediate, 06/20/16) pt developed diffuse macular rash per ER MD notes. unclear if due to vanco or zosyn TAZOBACTAM (Verified Adverse Reaction, Intermediate, 06/20/16) pt developed diffuse macular rash per ER MD notes. unclear if due to vanco or zosyn VANCOMYCIN (Verified Adverse Reaction, Intermediate, 06/20/16) pt developed diffuse macular rash per ER MD notes. unclear if due to vanco or zosyn Subjective stable, feeling better, no complaints this am, has been off HD since 06/25 Objective Last 24 Hour Vital Signs Date Time Temp Pulse Resp B/P Pulse Ox O2 Delivery O2 Flow Rate FiO2 06/30/16 12:00 98.2 69 20 136/85 95 Room Air 06/30/16 08:00 97.3 90 20 133/78 96 Room Air 06/30/16 07:01 97 Room Air 06/30/16 07:01 86 18 Room Air 06/30/16 06:59 Room Air 06/30/16 04:00 97.9 76 18 135/81 95 Room Air 06/30/16 00:00 98.0 83 19 139/91 97 Room Air 06/29/16 23:14 97.0 85 20 140/97 97 Room Air 06/29/16 19:04 Room Air 21 06/29/16 19:03 94 Room Air 21 06/29/16 19:03 81 18 Room Air 21 06/29/16 16:29 96.3 76 18 139/80 97 Room Air Intake and Output 06/29/16 06/30/16 19:00 07:00 Intake Total 1750 ml 955 ml Balance 1750 ml 955 ml Intake Oral 850 ml 600 ml IV Total 900 ml 355 ml # Voids 2 2 # Bowel Movements 1 Laboratory Tests 06/30/16 06:50: White Blood Count 9.8, Red Blood Count 3.91L, Hemoglobin 11.5L, Hematocrit 33.2L , Mean Corpuscular Volume 85, Mean Corpuscular Hemoglobin 29.5, Mean Corpuscular Hemoglobin Concent 34.8, Red Cell Distribution Width 11.1L, Platelet Count 310, Mean Platelet Volume 5.9L, Neutrophils (%) (Auto) 71.5, Lymphocytes (%) (Auto) 15.7L, Monocytes (%) (Auto) 9.4, Eosinophils (%) (Auto) 2.9, Basophils (%) (Auto) 0.6, Sodium Level 142, Potassium Level 4.0, Chloride Level 104, Carbon Dioxide Level 26, Anion Gap 12, Blood Urea Nitrogen 39H, Creatinine 2.3H, Estimat Glomerular Filtration Rate 32.2, Glucose Level 93, Calcium Level 8.4L, Phosphorus Level 4.0, Total Bilirubin 0.5, Aspartate Amino Transf (AST/SGOT) 13, Alanine Aminotransferase (ALT/SGPT) 8, Alkaline Phosphatase 40, Total Protein 6.0L, Albumin 3.0L, Globulin 3.0, Albumin/ Globulin Ratio 1.0 Height (Feet): 5 Height (Inches): 5.00 Weight (Pounds): 170 General Appearance: no apparent distress EENT: normal ENT inspection Neck: normal inspection Cardiovascular: normal rate Respiratory/Chest: normal breath sounds Abdomen: soft Extremities: non-tender Edema: 1+ Leg (L), 1+ Leg (R) Edema: mild edema Neurologic: alert Skin: warm/dry Gerry Winston Jun 30, 2016 12:44
--- NOTE | 2016-06-30 13:34 | Pulmonology Progress Note ---
Assessment/Plan Problems: (1) Lung abscess (2) Pneumonia (3) HTN (hypertension) (4) Adverse reaction to antibiotic (5) Pleurisy (6) HCAP (healthcare-associated pneumonia) Assessment/Plan wbc wnl blood cultures negative no sputum culture yet. keep on med/surg HD access d/[facility] might go home with abx Subjective ROS Limited/Unobtainable: No Constitutional: Reports: no symptoms HEENT: Repors: no symptoms Respiratory: Reports: no symptoms Cardiovascular: Reports: no symptoms Allergies: Coded Allergies: PIPERACILLIN (Verified Adverse Reaction, Intermediate, 06/20/16) pt developed diffuse macular rash per ER MD notes. unclear if due to vanco or zosyn TAZOBACTAM (Verified Adverse Reaction, Intermediate, 06/20/16) pt developed diffuse macular rash per ER MD notes. unclear if due to vanco or zosyn VANCOMYCIN (Verified Adverse Reaction, Intermediate, 06/20/16) pt developed diffuse macular rash per ER MD notes. unclear if due to vanco or zosyn Objective Last 24 Hour Vital Signs Date Time Temp Pulse Resp B/P Pulse Ox O2 Delivery O2 Flow Rate FiO2 06/30/16 12:00 98.2 69 20 136/85 95 Room Air 06/30/16 08:00 97.3 90 20 133/78 96 Room Air 06/30/16 07:01 97 Room Air 06/30/16 07:01 86 18 Room Air 06/30/16 06:59 Room Air 06/30/16 04:00 97.9 76 18 135/81 95 Room Air 06/30/16 00:00 98.0 83 19 139/91 97 Room Air 06/29/16 23:14 97.0 85 20 140/97 97 Room Air 06/29/16 19:04 Room Air 21 06/29/16 19:03 94 Room Air 21 06/29/16 19:03 81 18 Room Air 21 06/29/16 16:29 96.3 76 18 139/80 97 Room Air Intake and Output 06/29/16 06/30/16 19:00 07:00 Intake Total 1750 ml 955 ml Balance 1750 ml 955 ml Intake Oral 850 ml 600 ml IV Total 900 ml 355 ml # Voids 2 2 # Bowel Movements 1 General Appearance: WD/WN HEENT: normocephalic, anicteric Respiratory/Chest: chest wall non-tender, lungs clear Cardiovascular: normal peripheral pulses, normal rate Abdomen: normal bowel sounds, soft, non tender Laboratory Tests 06/30/16 06:50: White Blood Count 9.8, Red Blood Count 3.91L, Hemoglobin 11.5L, Hematocrit 33.2L , Mean Corpuscular Volume 85, Mean Corpuscular Hemoglobin 29.5, Mean Corpuscular Hemoglobin Concent 34.8, Red Cell Distribution Width 11.1L, Platelet Count 310, Mean Platelet Volume 5.9L, Neutrophils (%) (Auto) 71.5, Lymphocytes (%) (Auto) 15.7L, Monocytes (%) (Auto) 9.4, Eosinophils (%) (Auto) 2.9, Basophils (%) (Auto) 0.6, Sodium Level 142, Potassium Level 4.0, Chloride Level 104, Carbon Dioxide Level 26, Anion Gap 12, Blood Urea Nitrogen 39H, Creatinine 2.3H, Estimat Glomerular Filtration Rate 32.2, Glucose Level 93, Calcium Level 8.4L, Phosphorus Level 4.0, Total Bilirubin 0.5, Aspartate Amino Transf (AST/SGOT) 13, Alanine Aminotransferase (ALT/SGPT) 8, Alkaline Phosphatase 40, Total Protein 6.0L, Albumin 3.0L, Globulin 3.0, Albumin/ Globulin Ratio 1.0 Current Medications Medications (Trade) Dose Ordered Sig/Keila Route PRN Reason Start Time Stop Time Status Last Admin Dose Admin Acetaminophen (Tylenol) 650 mg Q4H PRN ORAL fever 06/23/16 21:00 07/23/16 20:59 Albuterol/ Ipratropium (DuoNeb 0.5-3(2.5)mg/3ml) 3 ml Q4H PRN HHN Shortness of Breath 06/26/16 09:30 07/01/16 09:29 Allopurinol (Allopurinol) 300 mg DAILY ORAL 06/29/16 09:00 07/29/16 08:59 06/30/16 09:02 Cefepime HCl/ Dextrose (Maxipime/D5W) 55 ml @ 110 mls/hr Q24H IV 06/23/16 21:00 06/30/16 20:59 06/29/16 21:00 Clonidine HCl (Catapres) 0.1 mg Q4H PRN ORAL BP over 170 syst 06/23/16 21:00 07/23/16 20:59 Heparin Sodium (Porcine) (Heparin 5000 units/ml) 5,000 units EVERY 12 HOURS SUBQ 06/23/16 21:00 07/23/16 20:59 06/30/16 09:11 Itraconazole (Sporanox) 200 mg Q12HR ORAL 06/23/16 21:00 06/30/16 20:59 06/30/16 10:04 Linezolid (Zyvox) 600 mg Q12HR ORAL 06/23/16 21:00 07/02/16 20:59 06/30/16 09:02 Magnesium Oxide (Mag-Ox 400mg) 400 mg THREE TIMES A DAY ORAL 06/29/16 13:00 07/29/16 12:59 06/30/16 09:02 Metronidazole (Flagyl) 500 mg Q8HR ORAL 06/23/16 22:00 06/30/16 21:59 06/30/16 05:33 Nitroglycerin (Ntg) 0.4 mg Q5MIN X3 PRN SL Prn Chest Pain 06/23/16 18:15 07/23/16 18:14 Ondansetron HCl (Zofran) 4 mg Q6H PRN IVP Nausea & Vomiting 06/23/16 19:00 07/23/16 18:59 Polyethylene Glycol (Miralax) 17 gm DAILYPRN PRN ORAL Constipation 06/24/16 13:00 07/24/16 12:59 Promethazine HCl/ Codeine (Phenergan with Codeine) 5 ml Q4H PRN ORAL For Cough 06/23/16 21:00 07/23/16 20:59 06/28/16 20:55 Ranitidine HCl 150 mg 150 mg BEDTIME ORAL 06/24/16 21:00 07/24/16 20:59 06/29/16 21:00 Sodium Chloride (0.45% NS 1000ml) 1,000 ml @ 75 mls/hr [id number] IV 06/24/16 11:45 07/24/16 11:44 06/30/16 01:18 Temazepam 15 mg 15 mg HSPRN PRN ORAL Insomnia 06/23/16 21:00 06/30/16 20:59 06/28/16 20:55 SAGAR CHRIS Jun 30, 2016 13:34
[2016-06-30 16:00] VITALS: BP 137/86
--- NOTE | 2016-06-30 17:30 | Infectious Diseases Prog Note ---
Assessment/Plan Problems: (1) Lung abscess Assessment & Plan: improving, will continue Zyvox , cefepime and flagyl for 4 weeks , recommend to repeat CT scan of the chest in 4 weeks for follow up, sputum culture showed normal keo so far. needs follow up with PCP after discharge. (2) HCAP (healthcare-associated pneumonia) Assessment & Plan: improving, continue zyvox , and cefepime empirically, sputum and blood culture are negative so far . (3) Adverse reaction to antibiotic Assessment & Plan: unclear whether due to vancomycin VS zosyn , most likely vancomycin since it happened fast after infusion, suspect red man syndrome, will check blood eosinophils counts in blood. avoid both classes of antibiotics for now, ok to use cephalosporins since he received it last admission with no reaction (4) Histoplasmosis pneumonia Assessment & Plan: continue itraconazole, monitor LFT (5) LISET (acute kidney injury) Assessment & Plan: resolved, had HD cath placed by renal, and had HD, HD cath was removed, avoid nephrotoxic meds. (6) Leukocytosis Assessment & Plan: due to steroids , now improving after D/C, since there is no benefit of steroids in this case I stopped it. Subjective Respiratory: Reports: productive cough Allergies: Coded Allergies: PIPERACILLIN (Verified Adverse Reaction, Intermediate, 06/20/16) pt developed diffuse macular rash per ER MD notes. unclear if due to vanco or zosyn TAZOBACTAM (Verified Adverse Reaction, Intermediate, 06/20/16) pt developed diffuse macular rash per ER MD notes. unclear if due to vanco or zosyn VANCOMYCIN (Verified Adverse Reaction, Intermediate, 06/20/16) pt developed diffuse macular rash per ER MD notes. unclear if due to vanco or zosyn All Systems: reviewed and negative except above Subjective he was doing ok, had less productive cough , no fever, or chills, no vomiting. no skin rash or hives, tolerated current antibiotics well. Objective Vital Signs Last 24 Hour Vital Signs Date Time Temp Pulse Resp B/P Pulse Ox O2 Delivery O2 Flow Rate FiO2 06/30/16 16:00 97.7 70 20 137/86 97 Room Air 06/30/16 12:00 98.2 69 20 136/85 95 Room Air 06/30/16 08:00 97.3 90 20 133/78 96 Room Air 06/30/16 07:01 97 Room Air 06/30/16 07:01 86 18 Room Air 06/30/16 06:59 Room Air 06/30/16 04:00 97.9 76 18 135/81 95 Room Air 06/30/16 00:00 98.0 83 19 139/91 97 Room Air 06/29/16 23:14 97.0 85 20 140/97 97 Room Air 06/29/16 19:04 Room Air 21 06/29/16 19:03 94 Room Air 21 06/29/16 19:03 81 18 Room Air 21 Height (Feet): 5 Height (Inches): 5.00 Weight (Pounds): 170 General Appearance: WD/WN, no acute distress HEENT: normocephalic, atraumatic, anicteric, mucous membranes moist Respiratory/Chest: chest wall non-tender, normal breath sounds, no respiratory distress, no accessory muscle use, decreased breath sounds, expiratory wheezing Cardiovascular: normal peripheral pulses, normal rate, regular rhythm, no gallop/murmur Abdomen: normal bowel sounds, soft, non tender, no organomegaly, non distended , no mass Extremities: no cyanosis, no clubbing Skin: no rash, no lesions, no ulcers Laboratory Tests Test 06/30/16 06:50 White Blood Count 9.8 K/UL (4.8-10.8) Red Blood Count 3.91 M/UL (4.70-6.10) L Hemoglobin 11.5 G/DL (14.2-18.0) L Hematocrit 33.2 % (42.0-52.0) L Mean Corpuscular Volume 85 FL (80-99) Mean Corpuscular Hemoglobin 29.5 PG (27.0-31.0) Mean Corpuscular Hemoglobin Concent 34.8 G/DL (32.0-36.0) Red Cell Distribution Width 11.1 % (11.6-14.8) L Platelet Count 310 K/UL (150-450) Mean Platelet Volume 5.9 FL (6.5-10.1) L Neutrophils (%) (Auto) 71.5 % (45.0-75.0) Lymphocytes (%) (Auto) 15.7 % (20.0-45.0) L Monocytes (%) (Auto) 9.4 % (1.0-10.0) Eosinophils (%) (Auto) 2.9 % (0.0-3.0) Basophils (%) (Auto) 0.6 % (0.0-2.0) Sodium Level 142 mEQ/L (135-145) Potassium Level 4.0 mEQ/L (3.4-4.9) Chloride Level 104 mEQ/L (98-107) Carbon Dioxide Level 26 mEQ/L (20-30) Anion Gap 12 (5-15) Blood Urea Nitrogen 39 mg/dL (7-23) H Creatinine 2.3 mg/dL (0.7-1.2) H Estimat Glomerular Filtration Rate 32.2 mL/min (>60) Glucose Level 93 mg/dL (74-106) Calcium Level 8.4 mg/dL (8.6-10.2) L Phosphorus Level 4.0 mg/dL (2.5-4.8) Total Bilirubin 0.5 mg/dL (0.0-1.2) Aspartate Amino Transf (AST/SGOT) 13 U/L (5-40) Alanine Aminotransferase (ALT/SGPT) 8 U/L (3-41) Alkaline Phosphatase 40 U/L (40-129) Total Protein 6.0 g/dL (6.6-8.7) L Albumin 3.0 g/dL (3.5-5.2) L Globulin 3.0 g/dL Albumin/Globulin Ratio 1.0 (1.0-2.7) Current Medications Medications (Trade) Dose Ordered Sig/Keila Route PRN Reason Start Time Stop Time Status Last Admin Dose Admin Acetaminophen (Tylenol) 650 mg Q4H PRN ORAL fever 06/23/16 21:00 07/23/16 20:59 Albuterol/ Ipratropium (DuoNeb 0.5-3(2.5)mg/3ml) 3 ml Q4H PRN HHN Shortness of Breath 06/26/16 09:30 07/01/16 09:29 Allopurinol (Allopurinol) 300 mg DAILY ORAL 06/29/16 09:00 07/29/16 08:59 06/30/16 09:02 Cefepime HCl/ Dextrose (Maxipime/D5W) 55 ml @ 110 mls/hr Q24H IV 06/23/16 21:00 2/2/17 20:59 06/29/16 21:00 Clonidine HCl (Catapres) 0.1 mg Q4H PRN ORAL BP over 170 syst 06/23/16 21:00 07/23/16 20:59 Heparin Sodium (Porcine) (Heparin 5000 units/ml) 5,000 units EVERY 12 HOURS SUBQ 06/23/16 21:00 07/23/16 20:59 06/30/16 09:11 Itraconazole (Sporanox) 200 mg Q12HR ORAL 06/23/16 21:00 07/07/16 20:59 06/30/16 10:04 Linezolid (Zyvox) 600 mg Q12HR ORAL 06/23/16 21:00 07/07/16 20:59 06/30/16 09:02 Magnesium Oxide (Mag-Ox 400mg) 400 mg THREE TIMES A DAY ORAL 06/29/16 13:00 07/29/16 12:59 06/30/16 13:52 Metronidazole (Flagyl) 500 mg Q8HR ORAL 06/23/16 22:00 07/07/16 21:59 06/30/16 13:52 Nitroglycerin (Ntg) 0.4 mg Q5MIN X3 PRN SL Prn Chest Pain 06/23/16 18:15 07/23/16 18:14 Ondansetron HCl (Zofran) 4 mg Q6H PRN IVP Nausea & Vomiting 06/23/16 19:00 07/23/16 18:59 Polyethylene Glycol (Miralax) 17 gm DAILYPRN PRN ORAL Constipation 06/24/16 13:00 07/24/16 12:59 Promethazine HCl/ Codeine (Phenergan with Codeine) 5 ml Q4H PRN ORAL For Cough 06/23/16 21:00 07/23/16 20:59 06/28/16 20:55 Ranitidine HCl 150 mg 150 mg BEDTIME ORAL 06/24/16 21:00 07/24/16 20:59 06/29/16 21:00 Sodium Chloride (0.45% NS 1000ml) 1,000 ml @ 75 mls/hr [id number] IV 06/24/16 11:45 07/24/16 11:44 06/30/16 13:53 Temazepam 15 mg 15 mg HSPRN PRN ORAL Insomnia 06/23/16 21:00 1/26/17 20:59 06/28/16 20:55 Erin Navarrete M.D. Jun 30, 2016 17:30
--- NOTE | 2016-06-30 17:52 | Cardiac Electrophysiology PN ---
Assessment/Plan Assessment/Plan 1. Sinus tachycardia due to sepsis and renal failure. Resolved. 2. Hypertension, stable off any antihypertensives. 3. History of histoplasmosis. 4. Shortness of breath due to healthcare-associated pneumonia. On empiric Zyvox . 5. Acute renal failure. Last HD 06/25/16. Dialysis Catheter removed today DW RN Subjective Subjective No chest pain, palpitation or SOB. No further dialysis. Right jugular dialysis catheter was removed. Objective Last 24 Hour Vital Signs Date Time Temp Pulse Resp B/P Pulse Ox O2 Delivery O2 Flow Rate FiO2 06/30/16 16:00 97.7 70 20 137/86 97 Room Air 06/30/16 12:00 98.2 69 20 136/85 95 Room Air 06/30/16 08:00 97.3 90 20 133/78 96 Room Air 06/30/16 07:01 97 Room Air 06/30/16 07:01 86 18 Room Air 06/30/16 06:59 Room Air 06/30/16 04:00 97.9 76 18 135/81 95 Room Air 06/30/16 00:00 98.0 83 19 139/91 97 Room Air 06/29/16 23:14 97.0 85 20 140/97 97 Room Air 06/29/16 19:04 Room Air 21 06/29/16 19:03 94 Room Air 21 06/29/16 19:03 81 18 Room Air 21 Intake and Output 06/29/16 06/30/16 19:00 07:00 Intake Total 1750 ml 955 ml Balance 1750 ml 955 ml Intake Oral 850 ml 600 ml IV Total 900 ml 355 ml # Voids 2 2 # Bowel Movements 1 Laboratory Tests Test 06/30/16 06:50 White Blood Count 9.8 K/UL (4.8-10.8) Red Blood Count 3.91 M/UL (4.70-6.10) L Hemoglobin 11.5 G/DL (14.2-18.0) L Hematocrit 33.2 % (42.0-52.0) L Mean Corpuscular Volume 85 FL (80-99) Mean Corpuscular Hemoglobin 29.5 PG (27.0-31.0) Mean Corpuscular Hemoglobin Concent 34.8 G/DL (32.0-36.0) Red Cell Distribution Width 11.1 % (11.6-14.8) L Platelet Count 310 K/UL (150-450) Mean Platelet Volume 5.9 FL (6.5-10.1) L Neutrophils (%) (Auto) 71.5 % (45.0-75.0) Lymphocytes (%) (Auto) 15.7 % (20.0-45.0) L Monocytes (%) (Auto) 9.4 % (1.0-10.0) Eosinophils (%) (Auto) 2.9 % (0.0-3.0) Basophils (%) (Auto) 0.6 % (0.0-2.0) Sodium Level 142 mEQ/L (135-145) Potassium Level 4.0 mEQ/L (3.4-4.9) Chloride Level 104 mEQ/L (98-107) Carbon Dioxide Level 26 mEQ/L (20-30) Anion Gap 12 (5-15) Blood Urea Nitrogen 39 mg/dL (7-23) H Creatinine 2.3 mg/dL (0.7-1.2) H Estimat Glomerular Filtration Rate 32.2 mL/min (>60) Glucose Level 93 mg/dL (74-106) Calcium Level 8.4 mg/dL (8.6-10.2) L Phosphorus Level 4.0 mg/dL (2.5-4.8) Total Bilirubin 0.5 mg/dL (0.0-1.2) Aspartate Amino Transf (AST/SGOT) 13 U/L (5-40) Alanine Aminotransferase (ALT/SGPT) 8 U/L (3-41) Alkaline Phosphatase 40 U/L (40-129) Total Protein 6.0 g/dL (6.6-8.7) L Albumin 3.0 g/dL (3.5-5.2) L Globulin 3.0 g/dL Albumin/Globulin Ratio 1.0 (1.0-2.7) Objective NECK: Shows no JVD. LUNGS: Coarse rhonchi. CARDIOVASCULAR: Shows regular S1 and S2 with no gallop or murmur. ABDOMEN: Soft. EXTREMITIES: No pitting edema. JOHN PENA Jun 30, 2016 17:52
[2016-06-30 19:00] VITALS: BP 133/88
[2016-06-30] MEDS: Promethazine/Codeine 5ml UD ORAL PRN (20:07)
[2016-06-30] MEDS: Cefepime HCl 500 MG in D5W 55 ML IV SCH (20:07)
[2016-07-01] VITALS (7 sets, daily range): BP systolic 129–148; BP diastolic 70–95
[2016-07-01] MEDS: metroNIDAZOLE 500mg tab ORAL SCH ×3 (05:53→20:58)
[2016-07-01 07:22] LABS: CALCIUM 8.3 mg/dL (8.6-10.2); CREATININE 2.2 mg/dL (0.7-1.2); GLOMERULAR FILTRATION RATE 33.8 mL/min (>60); MAGNESIUM 1.5 mg/dL (1.7-2.5); PHOSPHORUS 3.9 mg/dL (2.5-4.8); TOTAL PROTEIN 6.3 g/dL (6.6-8.7); URIC ACID 7.7 mg/dL (3.0-7.5)
[2016-07-01] MEDS: Magnesium Oxide 400mg tab ORAL SCH ×3 (08:30→16:54)
[2016-07-01] MEDS: Heparin 5000 units/ml inj SUBQ SCH ×2 (08:35→20:57)
--- NOTE | 2016-07-01 08:54 | General Progress Note ---
Assessment/Plan Assessment/Plan ASSESSMENT: 1. Leukocytosis - better, due to underlying Histoplasmosis pneumonia, steroids 2. Anemia secondary to chronic disease 3. Decreased hemoglobin and hematocrit, rule out GI bleed 4. Nausea and vomiting - now improved 5. Community-acquired pneumonia on abx 6. Eosinophilia history that is resolved 7. Acute kidney injury - on HD, monitoring per renal RECOMMENDATIONS: 1. Monitor counts and maintain hgb >7 2. Monitor wbc counts 3. Followup on renal, ID, pulm recs 4. Anemia w/u reviewed 5. Repeat smear has been reviewed 6. DVT ppx with heparin sq 7. GI prophylaxis prn basis 8. DW staff Thank you, Gerry Winston MD Subjective Constitutional: Reports: no symptoms HEENT: Reports: no symptoms Cardiovascular: Reports: no symptoms Respiratory: Reports: no symptoms Gastrointestinal/Abdominal: Reports: poor appetite Genitourinary: Reports: no symptoms Neurologic/Psychiatric: Reports: no symptoms Endocrine: Reports: no symptoms Hematologic/Lymphatic: Reports: anemia Allergies: Coded Allergies: PIPERACILLIN (Verified Adverse Reaction, Intermediate, 06/20/16) pt developed diffuse macular rash per ER MD notes. unclear if due to vanco or zosyn TAZOBACTAM (Verified Adverse Reaction, Intermediate, 06/20/16) pt developed diffuse macular rash per ER MD notes. unclear if due to vanco or zosyn VANCOMYCIN (Verified Adverse Reaction, Intermediate, 06/20/16) pt developed diffuse macular rash per ER MD notes. unclear if due to vanco or zosyn Subjective stable, feeling better, no complaints this am, off HD since 06/25 Objective Last 24 Hour Vital Signs Date Time Temp Pulse Resp B/P Pulse Ox O2 Delivery O2 Flow Rate FiO2 07/01/16 04:00 98.2 67 19 148/92 96 Room Air 07/01/16 00:44 98.1 69 21 144/92 96 Room Air 06/30/16 19:00 77 18 Room Air 06/30/16 19:00 97 Room Air 06/30/16 19:00 96.8 77 20 133/88 92 Room Air 06/30/16 19:00 Room Air 06/30/16 16:00 97.7 70 20 137/86 97 Room Air 06/30/16 12:00 98.2 69 20 136/85 95 Room Air Intake and Output 06/30/16 07/01/16 19:00 07:00 Intake Total 1500 ml 1045 ml Balance 1500 ml 1045 ml Intake Oral 600 ml 240 ml IV Total 900 ml 805 ml # Voids 7 Laboratory Tests 07/01/16 05:20: Sodium Level 138, Potassium Level 4.0, Chloride Level 98, Carbon Dioxide Level 28, Anion Gap 12, Blood Urea Nitrogen 30H, Creatinine 2.2H, Estimat Glomerular Filtration Rate 33.8, Glucose Level 94, Uric Acid 7.7H, Calcium Level 8.3L, Phosphorus Level 3.9, Magnesium Level 1.5L, Total Bilirubin 0.5, Aspartate Amino Transf (AST/SGOT) 13, Alanine Aminotransferase (ALT/SGPT) 8, Alkaline Phosphatase 42, Total Protein 6.3L, Albumin 3.2L, Globulin 3.1, Albumin/ Globulin Ratio 1.0 Height (Feet): 5 Height (Inches): 5.00 Weight (Pounds): 170 General Appearance: no apparent distress EENT: TMs normal Neck: normal alignment Cardiovascular: normal rate Respiratory/Chest: normal breath sounds Abdomen: normal bowel sounds Extremities: normal range of motion Edema: 1+ Leg (L), 1+ Leg (R) Edema: mild edema Neurologic: alert Skin: warm/dry Gerry Winston Jul 01, 2016 08:54
--- NOTE | 2016-07-01 09:28 | General Progress Note ---
Assessment/Plan Status: stable Status Narrative Cr lower 2.2 Assessment/Plan Status: Acute renal failure ( Allergic vs Sepsis) / RESOLVING NOW Urine positive for Eosinophils leading to Allergic etiology IMPROVING Other: 1) Lung abscess (2) Pneumonia (3) HTN (hypertension) (4) Adverse reaction to antibiotic (5) Pleurisy (6) HCAP (healthcare-associated pneumonia) Plan: I discontinued the right jugular dialysis catheter monitor renal parameters- HD last 06/25, Cr lowering without HD Slow hydrate ok to DC from renal stand point meds reviewed Subjective ROS Limited/Unobtainable: No Allergies: Coded Allergies: PIPERACILLIN (Verified Adverse Reaction, Intermediate, 06/20/16) pt developed diffuse macular rash per ER MD notes. unclear if due to vanco or zosyn TAZOBACTAM (Verified Adverse Reaction, Intermediate, 06/20/16) pt developed diffuse macular rash per ER MD notes. unclear if due to vanco or zosyn VANCOMYCIN (Verified Adverse Reaction, Intermediate, 06/20/16) pt developed diffuse macular rash per ER MD notes. unclear if due to vanco or zosyn Objective Last 24 Hour Vital Signs Date Time Temp Pulse Resp B/P Pulse Ox O2 Delivery O2 Flow Rate FiO2 07/01/16 04:00 98.2 67 19 148/92 96 Room Air 07/01/16 00:44 98.1 69 21 144/92 96 Room Air 06/30/16 19:00 77 18 Room Air 06/30/16 19:00 97 Room Air 06/30/16 19:00 96.8 77 20 133/88 92 Room Air 06/30/16 19:00 Room Air 06/30/16 16:00 97.7 70 20 137/86 97 Room Air 06/30/16 12:00 98.2 69 20 136/85 95 Room Air Intake and Output 06/30/16 07/01/16 19:00 07:00 Intake Total 1500 ml 1045 ml Balance 1500 ml 1045 ml Intake Oral 600 ml 240 ml IV Total 900 ml 805 ml # Voids 7 Laboratory Tests 07/01/16 05:20: Sodium Level 138, Potassium Level 4.0, Chloride Level 98, Carbon Dioxide Level 28, Anion Gap 12, Blood Urea Nitrogen 30H, Creatinine 2.2H, Estimat Glomerular Filtration Rate 33.8, Glucose Level 94, Uric Acid 7.7H, Calcium Level 8.3L, Phosphorus Level 3.9, Magnesium Level 1.5L, Total Bilirubin 0.5, Aspartate Amino Transf (AST/SGOT) 13, Alanine Aminotransferase (ALT/SGPT) 8, Alkaline Phosphatase 42, Total Protein 6.3L, Albumin 3.2L, Globulin 3.1, Albumin/ Globulin Ratio 1.0 Height (Feet): 5 Height (Inches): 5.00 Weight (Pounds): 170 General Appearance: no apparent distress Objective PE no change MILA GARCIA Jul 01, 2016 09:28
--- NOTE | 2016-07-01 12:50 | Pulmonology Progress Note ---
Assessment/Plan Problems: (1) Lung abscess (2) Pneumonia (3) HTN (hypertension) (4) Adverse reaction to antibiotic (5) Pleurisy (6) HCAP (healthcare-associated pneumonia) Assessment/Plan wbc wnl blood cultures negative no sputum culture yet. keep on med/surg HD access d/[facility] yesterday might go home with abx Subjective ROS Limited/Unobtainable: No Interval Events: HD access removed Allergies: Coded Allergies: PIPERACILLIN (Verified Adverse Reaction, Intermediate, 06/20/16) pt developed diffuse macular rash per ER MD notes. unclear if due to vanco or zosyn TAZOBACTAM (Verified Adverse Reaction, Intermediate, 06/20/16) pt developed diffuse macular rash per ER MD notes. unclear if due to vanco or zosyn VANCOMYCIN (Verified Adverse Reaction, Intermediate, 06/20/16) pt developed diffuse macular rash per ER MD notes. unclear if due to vanco or zosyn Objective Last 24 Hour Vital Signs Date Time Temp Pulse Resp B/P Pulse Ox O2 Delivery O2 Flow Rate FiO2 07/01/16 08:10 Room Air 21 07/01/16 08:05 97 Room Air 21 07/01/16 08:05 82 18 Room Air 07/01/16 08:00 97.5 75 19 136/91 95 Room Air 07/01/16 04:00 98.2 67 19 148/92 96 Room Air 07/01/16 00:44 98.1 69 21 144/92 96 Room Air 06/30/16 19:00 77 18 Room Air 06/30/16 19:00 97 Room Air 06/30/16 19:00 96.8 77 20 133/88 92 Room Air 06/30/16 19:00 Room Air 06/30/16 16:00 97.7 70 20 137/86 97 Room Air Intake and Output 06/30/16 07/01/16 19:00 07:00 Intake Total 1500 ml 1045 ml Balance 1500 ml 1045 ml Intake Oral 600 ml 240 ml IV Total 900 ml 805 ml # Voids 7 General Appearance: WD/WN HEENT: normocephalic, atraumatic Respiratory/Chest: chest wall non-tender, lungs clear Cardiovascular: normal peripheral pulses, normal rate Abdomen: normal bowel sounds, no organomegaly Extremities: no cyanosis, no clubbing Skin: no rash Microbiology Date/Time Source Procedure Growth Status 06/29/16 06:25 Nasal Nares MRSA Culture - Final NO METHICILLIN RESISTANT STAPH AUREUS... Complete Laboratory Tests 07/01/16 05:20: Sodium Level 138, Potassium Level 4.0, Chloride Level 98, Carbon Dioxide Level 28, Anion Gap 12, Blood Urea Nitrogen 30H, Creatinine 2.2H, Estimat Glomerular Filtration Rate 33.8, Glucose Level 94, Uric Acid 7.7H, Calcium Level 8.3L, Phosphorus Level 3.9, Magnesium Level 1.5L, Total Bilirubin 0.5, Aspartate Amino Transf (AST/SGOT) 13, Alanine Aminotransferase (ALT/SGPT) 8, Alkaline Phosphatase 42, Total Protein 6.3L, Albumin 3.2L, Globulin 3.1, Albumin/ Globulin Ratio 1.0 Current Medications Medications (Trade) Dose Ordered Sig/Keila Route PRN Reason Start Time Stop Time Status Last Admin Dose Admin Acetaminophen (Tylenol) 650 mg Q4H PRN ORAL fever 06/23/16 21:00 07/23/16 20:59 Allopurinol (Allopurinol) 300 mg DAILY ORAL 06/29/16 09:00 07/29/16 08:59 07/01/16 08:30 Cefepime HCl/ Dextrose (Maxipime/D5W) 55 ml @ 110 mls/hr Q24H IV 06/23/16 21:00 07/07/16 20:59 06/30/16 20:07 Clonidine HCl (Catapres) 0.1 mg Q4H PRN ORAL BP over 170 syst 06/23/16 21:00 07/23/16 20:59 Heparin Sodium (Porcine) (Heparin 5000 units/ml) 5,000 units EVERY 12 HOURS SUBQ 06/23/16 21:00 07/23/16 20:59 07/01/16 08:35 Itraconazole (Sporanox) 200 mg Q12HR ORAL 06/23/16 21:00 07/07/16 20:59 07/01/16 10:14 Linezolid (Zyvox) 600 mg Q12HR ORAL 06/23/16 21:00 07/07/16 20:59 07/01/16 08:30 Magnesium Oxide (Mag-Ox 400mg) 400 mg THREE TIMES A DAY ORAL 06/29/16 13:00 07/29/16 12:59 07/01/16 08:30 Metronidazole (Flagyl) 500 mg Q8HR ORAL 06/23/16 22:00 07/07/16 21:59 07/01/16 05:53 Nitroglycerin (Ntg) 0.4 mg Q5MIN X3 PRN SL Prn Chest Pain 06/23/16 18:15 07/23/16 18:14 Ondansetron HCl (Zofran) 4 mg Q6H PRN IVP Nausea & Vomiting 06/23/16 19:00 07/23/16 18:59 Polyethylene Glycol (Miralax) 17 gm DAILYPRN PRN ORAL Constipation 06/24/16 13:00 07/24/16 12:59 Promethazine HCl/ Codeine 5 ml 5 ml Q4H PRN ORAL For Cough 06/23/16 21:00 07/23/16 20:59 06/30/16 20:07 Ranitidine HCl 150 mg 150 mg BEDTIME ORAL 06/24/16 21:00 07/24/16 20:59 06/30/16 20:07 Sodium Chloride (0.45% NS 1000ml) 1,000 ml @ 75 mls/hr [id number] IV 06/24/16 11:45 07/24/16 11:44 07/01/16 03:54 SAGAR CHRIS Jul 01, 2016 12:50
--- NOTE | 2016-07-01 14:06 | General Progress Note ---
Assessment/Plan Problem List: (1) Histoplasmosis pneumonia ICD Codes: B39.2 - Pulmonary histoplasmosis capsulati, unspecified SNOMED: 775717956 (2) Vomiting ICD Codes: R11.10 - Vomiting, unspecified SNOMED: 194954412 (3) Adverse reaction to antibiotic ICD Codes: T36.95XA - Adverse effect of unspecified systemic antibiotic, initial encounter SNOMED: 152700472, 190134032 Qualifiers: Qualified Codes: T36.95XA - Adverse effect of unspecified systemic antibiotic, initial encounter (4) Cavitary lung disease ICD Codes: J98.4 - Other disorders of lung SNOMED: 10938465 (5) Pneumonia ICD Codes: J18.9 - Pneumonia, unspecified organism SNOMED: 794081486 (6) HTN (hypertension) ICD Codes: I10 - Essential (primary) hypertension SNOMED: 18413939 Qualifiers: Qualified Codes: I10 - Essential (primary) hypertension (7) Hyperlipidemia, mixed ICD Codes: E78.2 - Mixed hyperlipidemia SNOMED: 425398759 (8) Pleurisy ICD Codes: R09.1 - Pleurisy SNOMED: 711428901 Status: progressing Assessment/Plan histoplasmosis pna abx per id labs good afebrile reviewed chart and labs Subjective ROS Limited/Unobtainable: Yes Constitutional: Reports: no symptoms Allergies: Coded Allergies: PIPERACILLIN (Verified Adverse Reaction, Intermediate, 06/20/16) pt developed diffuse macular rash per ER MD notes. unclear if due to vanco or zosyn TAZOBACTAM (Verified Adverse Reaction, Intermediate, 06/20/16) pt developed diffuse macular rash per ER MD notes. unclear if due to vanco or zosyn VANCOMYCIN (Verified Adverse Reaction, Intermediate, 06/20/16) pt developed diffuse macular rash per ER MD notes. unclear if due to vanco or zosyn Objective Last 24 Hour Vital Signs Date Time Temp Pulse Resp B/P Pulse Ox O2 Delivery O2 Flow Rate FiO2 07/01/16 08:10 Room Air 21 07/01/16 08:05 97 Room Air 21 07/01/16 08:05 82 18 Room Air 07/01/16 08:00 97.5 75 19 136/91 95 Room Air 07/01/16 04:00 98.2 67 19 148/92 96 Room Air 07/01/16 00:44 98.1 69 21 144/92 96 Room Air 06/30/16 19:00 77 18 Room Air 06/30/16 19:00 97 Room Air 06/30/16 19:00 96.8 77 20 133/88 92 Room Air 06/30/16 19:00 Room Air 06/30/16 16:00 97.7 70 20 137/86 97 Room Air Intake and Output 06/30/16 07/01/16 19:00 07:00 Intake Total 1500 ml 1045 ml Balance 1500 ml 1045 ml Intake Oral 600 ml 240 ml IV Total 900 ml 805 ml # Voids 7 Laboratory Tests 07/01/16 05:20: Sodium Level 138, Potassium Level 4.0, Chloride Level 98, Carbon Dioxide Level 28, Anion Gap 12, Blood Urea Nitrogen 30H, Creatinine 2.2H, Estimat Glomerular Filtration Rate 33.8, Glucose Level 94, Uric Acid 7.7H, Calcium Level 8.3L, Phosphorus Level 3.9, Magnesium Level 1.5L, Total Bilirubin 0.5, Aspartate Amino Transf (AST/SGOT) 13, Alanine Aminotransferase (ALT/SGPT) 8, Alkaline Phosphatase 42, Total Protein 6.3L, Albumin 3.2L, Globulin 3.1, Albumin/ Globulin Ratio 1.0 Height (Feet): 5 Height (Inches): 5.00 Weight (Pounds): 170 Cardiovascular: normal rate Respiratory/Chest: lungs clear Jesse Dean MD Jul 01, 2016 14:06
--- NOTE | 2016-07-01 18:25 | Cardiac Electrophysiology PN ---
Assessment/Plan Assessment/Plan 1. Sinus tachycardia due to sepsis and renal failure.Resolved. 2. Hypertension, stable off any antihypertensives. 3. History of histoplasmosis. 4. Shortness of breath due to healthcare-associated pneumonia. On empiric Zyvox . 5. Acute renal failure. Last HD 06/25/16. Dialysis Catheter removed. HEIDI RN Subjective Subjective No chest pain, palpitation or SOB. No further dialysis needed.Wants to go home. Objective Last 24 Hour Vital Signs Date Time Temp Pulse Resp B/P Pulse Ox O2 Delivery O2 Flow Rate FiO2 07/01/16 12:00 98.0 70 18 129/70 99 Room Air 07/01/16 08:10 Room Air 21 07/01/16 08:05 97 Room Air 21 07/01/16 08:05 82 18 Room Air 07/01/16 08:00 97.5 75 19 136/91 95 Room Air 07/01/16 04:00 98.2 67 19 148/92 96 Room Air 07/01/16 00:44 98.1 69 21 144/92 96 Room Air 06/30/16 19:00 77 18 Room Air 06/30/16 19:00 97 Room Air 06/30/16 19:00 96.8 77 20 133/88 92 Room Air 06/30/16 19:00 Room Air Intake and Output 06/30/16 07/01/16 19:00 07:00 Intake Total 1500 ml 1120 ml Balance 1500 ml 1120 ml Intake Oral 600 ml 240 ml IV Total 900 ml 880 ml # Voids 7 Laboratory Tests Test 07/01/16 05:20 Sodium Level 138 mEQ/L (135-145) Potassium Level 4.0 mEQ/L (3.4-4.9) Chloride Level 98 mEQ/L (98-107) Carbon Dioxide Level 28 mEQ/L (20-30) Anion Gap 12 (5-15) Blood Urea Nitrogen 30 mg/dL (7-23) H Creatinine 2.2 mg/dL (0.7-1.2) H Estimat Glomerular Filtration Rate 33.8 mL/min (>60) Glucose Level 94 mg/dL (74-106) Uric Acid 7.7 mg/dL (3.0-7.5) H Calcium Level 8.3 mg/dL (8.6-10.2) L Phosphorus Level 3.9 mg/dL (2.5-4.8) Magnesium Level 1.5 mg/dL (1.7-2.5) L Total Bilirubin 0.5 mg/dL (0.0-1.2) Aspartate Amino Transf (AST/SGOT) 13 U/L (5-40) Alanine Aminotransferase (ALT/SGPT) 8 U/L (3-41) Alkaline Phosphatase 42 U/L (40-129) Total Protein 6.3 g/dL (6.6-8.7) L Albumin 3.2 g/dL (3.5-5.2) L Globulin 3.1 g/dL Albumin/Globulin Ratio 1.0 (1.0-2.7) Microbiology Date/Time Source Procedure Growth Status 06/29/16 06:25 Nasal Nares MRSA Culture - Final NO METHICILLIN RESISTANT STAPH AUREUS... Complete Objective NECK: Shows no JVD. LUNGS: Coarse rhonchi. CARDIOVASCULAR: Shows regular S1 and S2 with no gallop or murmur. ABDOMEN: Soft. EXTREMITIES: No pitting edema. JOHN PENA Jul 01, 2016 18:25
--- NOTE | 2016-07-01 19:29 | Infectious Diseases Prog Note ---
Assessment/Plan Problems: (1) Lung abscess Assessment & Plan: improving, will continue Zyvox , cefepime and flagyl for 4 weeks , EOT 07/20/16. recommend to repeat CT scan of the chest in 4 weeks for follow up, sputum culture showed normal keo so far. needs follow up with PCP after discharge. (2) HCAP (healthcare-associated pneumonia) Assessment & Plan: improving, continue zyvox , and cefepime empirically, sputum and blood culture are negative so far . (3) Adverse reaction to antibiotic Assessment & Plan: unclear whether due to vancomycin VS zosyn , most likely vancomycin since it happened fast after infusion, suspect red man syndrome, will check blood eosinophils counts in blood. avoid both classes of antibiotics for now, ok to use cephalosporins since he received it last admission with no reaction (4) Histoplasmosis pneumonia Assessment & Plan: continue itraconazole, monitor LFT (5) LISET (acute kidney injury) Assessment & Plan: resolved, had HD cath placed by renal, and had HD, HD cath was removed, avoid nephrotoxic meds. (6) Leukocytosis Assessment & Plan: due to steroids , now improving after D/C, since there is no benefit of steroids in this case I stopped it. Subjective Respiratory: Reports: productive cough Allergies: Coded Allergies: PIPERACILLIN (Verified Adverse Reaction, Intermediate, 06/20/16) pt developed diffuse macular rash per ER MD notes. unclear if due to vanco or zosyn TAZOBACTAM (Verified Adverse Reaction, Intermediate, 06/20/16) pt developed diffuse macular rash per ER MD notes. unclear if due to vanco or zosyn VANCOMYCIN (Verified Adverse Reaction, Intermediate, 06/20/16) pt developed diffuse macular rash per ER MD notes. unclear if due to vanco or zosyn All Systems: reviewed and negative except above Subjective he was doing ok, had less productive cough , no fever, or chills, no vomiting. no skin rash or hives, tolerated current antibiotics well. Objective Vital Signs Last 24 Hour Vital Signs Date Time Temp Pulse Resp B/P Pulse Ox O2 Delivery O2 Flow Rate FiO2 07/01/16 16:00 98.2 68 18 146/95 96 Room Air 07/01/16 12:00 98.0 70 18 129/70 99 Room Air 07/01/16 08:10 Room Air 21 07/01/16 08:05 97 Room Air 21 07/01/16 08:05 82 18 Room Air 07/01/16 08:00 97.5 75 19 136/91 95 Room Air 07/01/16 04:00 98.2 67 19 148/92 96 Room Air 07/01/16 00:44 98.1 69 21 144/92 96 Room Air Height (Feet): 5 Height (Inches): 5.00 Weight (Pounds): 170 General Appearance: WD/WN, no acute distress HEENT: normocephalic, atraumatic, anicteric, mucous membranes moist, PERRL Respiratory/Chest: chest wall non-tender, normal breath sounds, no respiratory distress, no accessory muscle use, decreased breath sounds Cardiovascular: normal peripheral pulses, normal rate, regular rhythm, no gallop/murmur, no JVD Abdomen: normal bowel sounds, soft, non tender, no organomegaly, non distended , no mass, no scars Extremities: no cyanosis, no clubbing Skin: no rash, no lesions, no ulcers Microbiology Date/Time Source Procedure Growth Status 06/29/16 06:25 Nasal Nares MRSA Culture - Final NO METHICILLIN RESISTANT STAPH AUREUS... Complete Laboratory Tests Test 07/01/16 05:20 Sodium Level 138 mEQ/L (135-145) Potassium Level 4.0 mEQ/L (3.4-4.9) Chloride Level 98 mEQ/L (98-107) Carbon Dioxide Level 28 mEQ/L (20-30) Anion Gap 12 (5-15) Blood Urea Nitrogen 30 mg/dL (7-23) H Creatinine 2.2 mg/dL (0.7-1.2) H Estimat Glomerular Filtration Rate 33.8 mL/min (>60) Glucose Level 94 mg/dL (74-106) Uric Acid 7.7 mg/dL (3.0-7.5) H Calcium Level 8.3 mg/dL (8.6-10.2) L Phosphorus Level 3.9 mg/dL (2.5-4.8) Magnesium Level 1.5 mg/dL (1.7-2.5) L Total Bilirubin 0.5 mg/dL (0.0-1.2) Aspartate Amino Transf (AST/SGOT) 13 U/L (5-40) Alanine Aminotransferase (ALT/SGPT) 8 U/L (3-41) Alkaline Phosphatase 42 U/L (40-129) Total Protein 6.3 g/dL (6.6-8.7) L Albumin 3.2 g/dL (3.5-5.2) L Globulin 3.1 g/dL Albumin/Globulin Ratio 1.0 (1.0-2.7) Current Medications Medications (Trade) Dose Ordered Sig/Keila Route PRN Reason Start Time Stop Time Status Last Admin Dose Admin Acetaminophen (Tylenol) 650 mg Q4H PRN ORAL fever 06/23/16 21:00 07/23/16 20:59 Allopurinol (Allopurinol) 300 mg DAILY ORAL 06/29/16 09:00 07/29/16 08:59 07/01/16 08:30 Cefepime HCl/ Dextrose (Maxipime/D5W) 55 ml @ 110 mls/hr Q24H IV 06/23/16 21:00 07/07/16 20:59 06/30/16 20:07 Clonidine HCl (Catapres) 0.1 mg Q4H PRN ORAL BP over 170 syst 06/23/16 21:00 07/23/16 20:59 Heparin Sodium (Porcine) (Heparin 5000 units/ml) 5,000 units EVERY 12 HOURS SUBQ 06/23/16 21:00 07/23/16 20:59 07/01/16 08:35 Itraconazole (Sporanox) 200 mg Q12HR ORAL 06/23/16 21:00 07/07/16 20:59 07/01/16 10:14 Linezolid (Zyvox) 600 mg Q12HR ORAL 06/23/16 21:00 07/07/16 20:59 07/01/16 08:30 Magnesium Oxide (Mag-Ox 400mg) 400 mg THREE TIMES A DAY ORAL 06/29/16 13:00 07/29/16 12:59 07/01/16 16:54 Metronidazole (Flagyl) 500 mg Q8HR ORAL 06/23/16 22:00 07/07/16 21:59 07/01/16 14:23 Nitroglycerin (Ntg) 0.4 mg Q5MIN X3 PRN SL Prn Chest Pain 06/23/16 18:15 07/23/16 18:14 Ondansetron HCl (Zofran) 4 mg Q6H PRN IVP Nausea & Vomiting 1/19/17 19:00 07/23/16 18:59 Polyethylene Glycol (Miralax) 17 gm DAILYPRN PRN ORAL Constipation 06/24/16 13:00 07/24/16 12:59 Promethazine HCl/ Codeine 5 ml 5 ml Q4H PRN ORAL For Cough 06/23/16 21:00 07/23/16 20:59 06/30/16 20:07 Ranitidine HCl 150 mg 150 mg BEDTIME ORAL 06/24/16 21:00 07/24/16 20:59 06/30/16 20:07 Sodium Chloride (0.45% NS 1000ml) 1,000 ml @ 75 mls/hr [id number] IV 06/24/16 11:45 07/24/16 11:44 07/01/16 16:37 Erin Navarrete M.D. Jul 01, 2016 19:29
[2016-07-01] MEDS: Cefepime HCl 500 MG in D5W 55 ML IV SCH (21:49)
[2016-07-02 04:00] VITALS: BP 139/87
[2016-07-02] MEDS: metroNIDAZOLE 500mg tab ORAL SCH ×3 (05:16→20:58)
[2016-07-02 08:00] VITALS: BP 157/86
[2016-07-02] MEDS: Magnesium Oxide 400mg tab ORAL SCH ×3 (10:06→19:10)
[2016-07-02] MEDS: Heparin 5000 units/ml inj SUBQ SCH ×2 (10:16→21:04)
--- NOTE | 2016-07-02 10:17 | General Progress Note ---
Assessment/Plan Status: unchanged Assessment/Plan Status: Acute renal failure ( Allergic vs Sepsis) / RESOLVING NOW Urine positive for Eosinophils leading to Allergic etiology IMPROVING Other: 1) Lung abscess (2) Pneumonia (3) HTN (hypertension) (4) Adverse reaction to antibiotic (5) Pleurisy (6) HCAP (healthcare-associated pneumonia) Plan: I discontinued the right jugular dialysis catheter monitor renal parameters- HD last 06/25, Cr lowering without HD Slow hydrate ok to DC from renal stand point meds reviewed Subjective ROS Limited/Unobtainable: No Allergies: Coded Allergies: PIPERACILLIN (Verified Adverse Reaction, Intermediate, 06/20/16) pt developed diffuse macular rash per ER MD notes. unclear if due to vanco or zosyn TAZOBACTAM (Verified Adverse Reaction, Intermediate, 06/20/16) pt developed diffuse macular rash per ER MD notes. unclear if due to vanco or zosyn VANCOMYCIN (Verified Adverse Reaction, Intermediate, 06/20/16) pt developed diffuse macular rash per ER MD notes. unclear if due to vanco or zosyn Objective Last 24 Hour Vital Signs Date Time Temp Pulse Resp B/P Pulse Ox O2 Delivery O2 Flow Rate FiO2 07/02/16 08:00 97.2 90 20 157/86 96 Room Air 07/02/16 06:48 80 18 Room Air 07/02/16 06:48 Room Air 07/02/16 06:48 97 Room Air 21 07/02/16 04:00 98.1 70 19 139/87 93 Room Air 07/01/16 23:59 97.9 75 21 139/77 95 Room Air 07/01/16 19:48 86 18 Room Air 07/01/16 19:48 97 Room Air 07/01/16 19:48 Room Air 21 07/01/16 19:00 97.9 81 20 136/90 97 Room Air 07/01/16 16:00 98.2 68 18 146/95 96 Room Air 07/01/16 12:00 98.0 70 18 129/70 99 Room Air Intake and Output 07/01/16 07/02/16 19:00 07:00 Intake Total 1775 ml 1660 ml Balance 1775 ml 1660 ml Intake Oral 950 ml 780 ml IV Total 825 ml 880 ml # Voids 4 8 # Bowel Movements 1 Height (Feet): 5 Height (Inches): 5.00 Weight (Pounds): 170 General Appearance: no apparent distress Objective PE no change MILA GARCIA Jul 02, 2016 10:17
--- NOTE | 2016-07-02 11:03 | General Progress Note ---
Assessment/Plan Assessment/Plan ASSESSMENT: 1. Leukocytosis - better, due to underlying Histoplasmosis pneumonia, steroids 2. Anemia secondary to chronic disease 3. Decreased hemoglobin and hematocrit, rule out GI bleed 4. Nausea and vomiting - now improved 5. Community-acquired pneumonia on abx 6. Eosinophilia history that is resolved 7. Acute kidney injury - on HD, monitoring per renal RECOMMENDATIONS: 1. Monitor counts and maintain hgb >7 2. Monitor wbc counts 3. Followup on renal, ID, pulm recs 4. Anemia w/u reviewed 5. Repeat smear has been reviewed 6. DVT ppx with heparin sq 7. Stable from hematology for discharge 8. staff Thank you, Brigid Winston MD Subjective Constitutional: Reports: no symptoms HEENT: Reports: mouth pain Cardiovascular: Reports: no symptoms Respiratory: Reports: no symptoms Gastrointestinal/Abdominal: Reports: poor appetite Genitourinary: Reports: no symptoms Neurologic/Psychiatric: Reports: no symptoms Endocrine: Reports: no symptoms Hematologic/Lymphatic: Reports: anemia Allergies: Coded Allergies: PIPERACILLIN (Verified Adverse Reaction, Intermediate, 06/20/16) pt developed diffuse macular rash per ER MD notes. unclear if due to vanco or zosyn TAZOBACTAM (Verified Adverse Reaction, Intermediate, 06/20/16) pt developed diffuse macular rash per ER MD notes. unclear if due to vanco or zosyn VANCOMYCIN (Verified Adverse Reaction, Intermediate, 06/20/16) pt developed diffuse macular rash per ER MD notes. unclear if due to vanco or zosyn Subjective stable, no bleeding reported, no fevers or chills reported Objective Last 24 Hour Vital Signs Date Time Temp Pulse Resp B/P Pulse Ox O2 Delivery O2 Flow Rate FiO2 07/02/16 08:00 97.2 90 20 157/86 96 Room Air 07/02/16 06:48 80 18 Room Air 07/02/16 06:48 Room Air 21 07/02/16 06:48 97 Room Air 07/02/16 04:00 98.1 70 19 139/87 93 Room Air 07/01/16 23:59 97.9 75 21 139/77 95 Room Air 07/01/16 19:48 86 18 Room Air 07/01/16 19:48 97 Room Air 07/01/16 19:48 Room Air 07/01/16 19:00 97.9 81 20 136/90 97 Room Air 07/01/16 16:00 98.2 68 18 146/95 96 Room Air 07/01/16 12:00 98.0 70 18 129/70 99 Room Air Intake and Output 07/01/16 07/02/16 19:00 07:00 Intake Total 1775 ml 1660 ml Balance 1775 ml 1660 ml Intake Oral 950 ml 780 ml IV Total 825 ml 880 ml # Voids 4 8 # Bowel Movements 1 Height (Feet): 5 Height (Inches): 5.00 Weight (Pounds): 170 General Appearance: no apparent distress EENT: TMs normal Neck: supple Cardiovascular: regular rhythm Respiratory/Chest: lungs clear Abdomen: soft Extremities: non-tender Edema: 1+ Leg (L), 1+ Leg (R) Edema: mild edema Neurologic: alert Skin: warm/dry BRIGID WINSTON Jul 02, 2016 11:03
--- NOTE | 2016-07-02 11:35 | General Progress Note ---
Assessment/Plan Problem List: (1) Histoplasmosis pneumonia ICD Codes: B39.2 - Pulmonary histoplasmosis capsulati, unspecified SNOMED: 296156490 (2) Vomiting ICD Codes: R11.10 - Vomiting, unspecified SNOMED: 500052978 (3) Adverse reaction to antibiotic ICD Codes: T36.95XA - Adverse effect of unspecified systemic antibiotic, initial encounter SNOMED: 087210369, 641244388 Qualifiers: Qualified Codes: T36.95XA - Adverse effect of unspecified systemic antibiotic, initial encounter (4) Cavitary lung disease ICD Codes: J98.4 - Other disorders of lung SNOMED: 07001718 (5) Pneumonia ICD Codes: J18.9 - Pneumonia, unspecified organism SNOMED: 196387537 (6) HTN (hypertension) ICD Codes: I10 - Essential (primary) hypertension SNOMED: 73353740 Qualifiers: Qualified Codes: I10 - Essential (primary) hypertension (7) Hyperlipidemia, mixed ICD Codes: E78.2 - Mixed hyperlipidemia SNOMED: 105677285 (8) Pleurisy ICD Codes: R09.1 - Pleurisy SNOMED: 571863884 Status: progressing Assessment/Plan htn pna \ histoplasmosis pna improving afebrile vitals stable Subjective ROS Limited/Unobtainable: Yes Constitutional: Reports: no symptoms Allergies: Coded Allergies: PIPERACILLIN (Verified Adverse Reaction, Intermediate, 06/20/16) pt developed diffuse macular rash per ER MD notes. unclear if due to vanco or zosyn TAZOBACTAM (Verified Adverse Reaction, Intermediate, 06/20/16) pt developed diffuse macular rash per ER MD notes. unclear if due to vanco or zosyn VANCOMYCIN (Verified Adverse Reaction, Intermediate, 06/20/16) pt developed diffuse macular rash per ER MD notes. unclear if due to vanco or zosyn Objective Last 24 Hour Vital Signs Date Time Temp Pulse Resp B/P Pulse Ox O2 Delivery O2 Flow Rate FiO2 07/02/16 08:00 97.2 90 20 157/86 96 Room Air 07/02/16 06:48 80 18 Room Air 07/02/16 06:48 Room Air 21 07/02/16 06:48 97 Room Air 21 07/02/16 04:00 98.1 70 19 139/87 93 Room Air 07/01/16 23:59 97.9 75 21 139/77 95 Room Air 07/01/16 19:48 86 18 Room Air 07/01/16 19:48 97 Room Air 07/01/16 19:48 Room Air 21 07/01/16 19:00 97.9 81 20 136/90 97 Room Air 07/01/16 16:00 98.2 68 18 146/95 96 Room Air 07/01/16 12:00 98.0 70 18 129/70 99 Room Air Intake and Output 07/01/16 07/02/16 19:00 07:00 Intake Total 1775 ml 1660 ml Balance 1775 ml 1660 ml Intake Oral 950 ml 780 ml IV Total 825 ml 880 ml # Voids 4 8 # Bowel Movements 1 Height (Feet): 5 Height (Inches): 5.00 Weight (Pounds): 170 EENT: PERRL/EOMI Neck: supple Cardiovascular: normal rate Respiratory/Chest: lungs clear Jesse Dean MD Jul 02, 2016 11:34
[2016-07-02 12:00] VITALS: BP 136/93
--- NOTE | 2016-07-02 12:35 | Pulmonology Progress Note ---
Assessment/Plan Problems: (1) Lung abscess (2) Pneumonia (3) HTN (hypertension) (4) Adverse reaction to antibiotic (5) Pleurisy (6) HCAP (healthcare-associated pneumonia) Assessment/Plan wbc wnl blood cultures negative no sputum culture yet. keep on med/surg might go home with abx dc planning Subjective Interval Events: feeling better Allergies: Coded Allergies: PIPERACILLIN (Verified Adverse Reaction, Intermediate, 06/20/16) pt developed diffuse macular rash per ER MD notes. unclear if due to vanco or zosyn TAZOBACTAM (Verified Adverse Reaction, Intermediate, 06/20/16) pt developed diffuse macular rash per ER MD notes. unclear if due to vanco or zosyn VANCOMYCIN (Verified Adverse Reaction, Intermediate, 06/20/16) pt developed diffuse macular rash per ER MD notes. unclear if due to vanco or zosyn Objective Last 24 Hour Vital Signs Date Time Temp Pulse Resp B/P Pulse Ox O2 Delivery O2 Flow Rate FiO2 07/02/16 08:00 97.2 90 20 157/86 96 Room Air 07/02/16 06:48 80 18 Room Air 07/02/16 06:48 Room Air 21 07/02/16 06:48 97 Room Air 21 07/02/16 04:00 98.1 70 19 139/87 93 Room Air 07/01/16 23:59 97.9 75 21 139/77 95 Room Air 07/01/16 19:48 86 18 Room Air 07/01/16 19:48 97 Room Air 07/01/16 19:48 Room Air 21 07/01/16 19:00 97.9 81 20 136/90 97 Room Air 07/01/16 16:00 98.2 68 18 146/95 96 Room Air Intake and Output 07/01/16 07/02/16 19:00 07:00 Intake Total 1775 ml 1660 ml Balance 1775 ml 1660 ml Intake Oral 950 ml 780 ml IV Total 825 ml 880 ml # Voids 4 8 # Bowel Movements 1 General Appearance: WD/WN HEENT: normocephalic Respiratory/Chest: chest wall non-tender, lungs clear Cardiovascular: normal peripheral pulses, normal rate Abdomen: normal bowel sounds, soft, non tender Extremities: no clubbing Current Medications Medications (Trade) Dose Ordered Sig/Keila Route PRN Reason Start Time Stop Time Status Last Admin Dose Admin Acetaminophen (Tylenol) 650 mg Q4H PRN ORAL fever 06/23/16 21:00 07/23/16 20:59 Allopurinol (Allopurinol) 300 mg DAILY ORAL 06/29/16 09:00 07/29/16 08:59 07/02/16 10:06 Cefepime HCl/ Dextrose (Maxipime/D5W) 55 ml @ 110 mls/hr Q24H IV 06/23/16 21:00 07/07/16 20:59 07/01/16 21:49 Clonidine HCl (Catapres) 0.1 mg Q4H PRN ORAL BP over 170 syst 06/23/16 21:00 07/23/16 20:59 Heparin Sodium (Porcine) (Heparin 5000 units/ml) 5,000 units EVERY 12 HOURS SUBQ 06/23/16 21:00 07/23/16 20:59 07/02/16 10:16 Itraconazole (Sporanox) 200 mg Q12HR ORAL 06/23/16 21:00 07/07/16 20:59 07/02/16 10:06 Linezolid (Zyvox) 600 mg Q12HR ORAL 06/23/16 21:00 07/07/16 20:59 07/02/16 10:06 Magnesium Oxide (Mag-Ox 400mg) 400 mg THREE TIMES A DAY ORAL 06/29/16 13:00 07/29/16 12:59 07/02/16 10:06 Metronidazole (Flagyl) 500 mg Q8HR ORAL 06/23/16 22:00 07/07/16 21:59 07/02/16 05:16 Nitroglycerin (Ntg) 0.4 mg Q5MIN X3 PRN SL Prn Chest Pain 06/23/16 18:15 07/23/16 18:14 Ondansetron HCl (Zofran) 4 mg Q6H PRN IVP Nausea & Vomiting 06/23/16 19:00 07/23/16 18:59 Polyethylene Glycol (Miralax) 17 gm DAILYPRN PRN ORAL Constipation 06/24/16 13:00 07/24/16 12:59 Promethazine HCl/ Codeine 5 ml 5 ml Q4H PRN ORAL For Cough 06/23/16 21:00 07/23/16 20:59 06/30/16 20:07 Ranitidine HCl 150 mg 150 mg BEDTIME ORAL 06/24/16 21:00 07/24/16 20:59 07/01/16 20:47 Sodium Chloride (0.45% NS 1000ml) 1,000 ml @ 75 mls/hr [id number] IV 06/24/16 11:45 07/24/16 11:44 07/02/16 05:16 SAGAR CHRIS Jul 02, 2016 12:35
[2016-07-02] MEDS ORDERED: 1/2 NS 1000ml IV ONE (13:34)
[2016-07-02 16:00] VITALS: BP 134/100
--- NOTE | 2016-07-02 16:29 | Infectious Diseases Prog Note ---
Assessment/Plan Problems: (1) Lung abscess Assessment & Plan: improving, will continue Zyvox , cefepime and flagyl for 4 weeks , EOT 07/20/16. recommend to repeat CT scan of the chest in 4 weeks for follow up, sputum culture showed normal keo so far. needs follow up with PCP after discharge. (2) HCAP (healthcare-associated pneumonia) Assessment & Plan: improving, continue zyvox , and cefepime empirically, sputum and blood culture are negative so far . (3) Adverse reaction to antibiotic Assessment & Plan: unclear whether due to vancomycin VS zosyn , most likely vancomycin since it happened fast after infusion, suspect red man syndrome, will check blood eosinophils counts in blood. avoid both classes of antibiotics for now, ok to use cephalosporins since he received it last admission with no reaction (4) Histoplasmosis pneumonia Assessment & Plan: continue itraconazole, monitor LFT (5) LISET (acute kidney injury) Assessment & Plan: resolved, had HD cath placed by renal, and had HD, HD cath was removed, avoid nephrotoxic meds. (6) Leukocytosis Assessment & Plan: due to steroids , now improving after D/C, since there is no benefit of steroids in this case I stopped it. Subjective Respiratory: Reports: productive cough Allergies: Coded Allergies: PIPERACILLIN (Verified Adverse Reaction, Intermediate, 06/20/16) pt developed diffuse macular rash per ER MD notes. unclear if due to vanco or zosyn TAZOBACTAM (Verified Adverse Reaction, Intermediate, 06/20/16) pt developed diffuse macular rash per ER MD notes. unclear if due to vanco or zosyn VANCOMYCIN (Verified Adverse Reaction, Intermediate, 06/20/16) pt developed diffuse macular rash per ER MD notes. unclear if due to vanco or zosyn All Systems: reviewed and negative except above Subjective he was doing ok. no skin rash or hives, tolerated current antibiotics well. Objective Vital Signs Last 24 Hour Vital Signs Date Time Temp Pulse Resp B/P Pulse Ox O2 Delivery O2 Flow Rate FiO2 07/02/16 12:00 97.7 67 20 136/93 Room Air 07/02/16 08:00 97.2 90 20 157/86 96 Room Air 07/02/16 06:48 80 18 Room Air 07/02/16 06:48 Room Air 21 07/02/16 06:48 97 Room Air 21 07/02/16 04:00 98.1 70 19 139/87 93 Room Air 07/01/16 23:59 97.9 75 21 139/77 95 Room Air 07/01/16 19:48 86 18 Room Air 07/01/16 19:48 97 Room Air 07/01/16 19:48 Room Air 21 07/01/16 19:00 97.9 81 20 136/90 97 Room Air Height (Feet): 5 Height (Inches): 5.00 Weight (Pounds): 170 General Appearance: WD/WN HEENT: normocephalic, atraumatic, anicteric, mucous membranes moist, PERRL Respiratory/Chest: chest wall non-tender, normal breath sounds, no respiratory distress, decreased breath sounds Cardiovascular: normal peripheral pulses, normal rate, regular rhythm, no gallop/murmur, no JVD Abdomen: normal bowel sounds, soft, non tender, no organomegaly, non distended , no mass, no scars Extremities: no cyanosis, no clubbing Skin: no rash, no lesions, no ulcers Current Medications Medications (Trade) Dose Ordered Sig/Keila Route PRN Reason Start Time Stop Time Status Last Admin Dose Admin Acetaminophen (Tylenol) 650 mg Q4H PRN ORAL fever 06/23/16 21:00 07/23/16 20:59 Allopurinol (Allopurinol) 300 mg DAILY ORAL 06/29/16 09:00 07/29/16 08:59 07/02/16 10:06 Cefepime HCl/ Dextrose (Maxipime/D5W) 55 ml @ 110 mls/hr Q24H IV 06/23/16 21:00 07/07/16 20:59 07/01/16 21:49 Clonidine HCl (Catapres) 0.1 mg Q4H PRN ORAL BP over 170 syst 06/23/16 21:00 07/23/16 20:59 Heparin Sodium (Porcine) (Heparin 5000 units/ml) 5,000 units EVERY 12 HOURS SUBQ 06/23/16 21:00 07/23/16 20:59 07/02/16 10:16 Itraconazole (Sporanox) 200 mg Q12HR ORAL 06/23/16 21:00 07/07/16 20:59 07/02/16 10:06 Linezolid (Zyvox) 600 mg Q12HR ORAL 06/23/16 21:00 07/07/16 20:59 07/02/16 10:06 Magnesium Oxide (Mag-Ox 400mg) 400 mg THREE TIMES A DAY ORAL 06/29/16 13:00 07/29/16 12:59 07/02/16 14:28 Metronidazole (Flagyl) 500 mg Q8HR ORAL 06/23/16 22:00 07/07/16 21:59 07/02/16 14:27 Nitroglycerin (Ntg) 0.4 mg Q5MIN X3 PRN SL Prn Chest Pain 06/23/16 18:15 07/23/16 18:14 Ondansetron HCl (Zofran) 4 mg Q6H PRN IVP Nausea & Vomiting 06/23/16 19:00 07/23/16 18:59 Polyethylene Glycol (Miralax) 17 gm DAILYPRN PRN ORAL Constipation 06/24/16 13:00 07/24/16 12:59 Promethazine HCl/ Codeine 5 ml 5 ml Q4H PRN ORAL For Cough 06/23/16 21:00 07/23/16 20:59 06/30/16 20:07 Ranitidine HCl (Zantac) 150 mg BEDTIME ORAL 06/24/16 21:00 07/24/16 20:59 07/01/16 20:47 Erin Navarrete M.D. Jul 02, 2016 16:29
[2016-07-02 20:00] VITALS: BP 138/90
--- NOTE | 2016-07-02 21:58 | Cardiac Electrophysiology PN ---
Assessment/Plan Assessment/Plan 1. Sinus tachycardia due to sepsis and renal failure.Resolved. 2. Hypertension, off any antihypertensives. 3. History of histoplasmosis. 4. Shortness of breath due to healthcare-associated pneumonia. On empiric Zyvox . 5. Acute renal failure. Resolved.Now off dialysis. HEIDI RN Subjective Subjective No chest pain, palpitation or SOB. at bedside.. Objective Last 24 Hour Vital Signs Date Time Temp Pulse Resp B/P Pulse Ox O2 Delivery O2 Flow Rate FiO2 07/02/16 19:55 Room Air 21 07/02/16 19:54 87 18 Room Air 07/02/16 19:54 97 Room Air 21 07/02/16 16:00 97.5 78 20 134/100 95 Room Air 07/02/16 12:00 97.7 67 20 136/93 Room Air 07/02/16 08:00 97.2 90 20 157/86 96 Room Air 07/02/16 06:48 80 18 Room Air 07/02/16 06:48 Room Air 21 07/02/16 06:48 97 Room Air 21 07/02/16 04:00 98.1 70 19 139/87 93 Room Air 07/01/16 23:59 97.9 75 21 139/77 95 Room Air Intake and Output 07/01/16 07/02/16 19:00 07:00 Intake Total 1775 ml 1660 ml Balance 1775 ml 1660 ml Intake Oral 950 ml 780 ml IV Total 825 ml 880 ml # Voids 4 8 # Bowel Movements 1 Objective NECK: Shows no JVD. LUNGS: Coarse rhonchi. CARDIOVASCULAR: Shows regular S1 and S2 with no gallop or murmur. ABDOMEN: Soft. EXTREMITIES: No pitting edema. JOHN PENA Jul 02, 2016 21:58
[2016-07-02] MEDS: Cefepime HCl 500 MG in D5W 55 ML IV SCH (22:12)
[2016-07-03] VITALS: BP 149/89
[2016-07-03 04:00] VITALS: BP 128/79
[2016-07-03] MEDS: metroNIDAZOLE 500mg tab ORAL SCH ×3 (05:10→20:54)
[2016-07-03 07:08] LABS: BASOPHILS % (AUTO) 1.2 % (0.0-2.0); EOSINOPHILS % (AUTO) 3.1 % (0.0-3.0); LYMPHOCYTES % (AUTO) 22.6 % (20.0-45.0); MEAN CORPUSCULAR HEMOGLOBIN 29.7 PG (27.0-31.0); MEAN CORPUSCULAR HGB CONC 34.9 G/DL (32.0-36.0); MEAN CORPUSCULAR VOLUME 85 FL (80-99); MEAN PLATELET VOLUME 6.6 FL (6.5-10.1); MONOCYTES % (AUTO) 14.9 % (1.0-10.0); NEUTROPHILS % (AUTO) 58.2 % (45.0-75.0); PLATELET COUNT 213 K/UL (150-450); RED BLOOD COUNT 3.75 M/UL (4.70-6.10); RED CELL DISTRIBUTION WIDTH 11.6 % (11.6-14.8); WHITE BLOOD COUNT 5.7 K/UL (4.8-10.8)
[2016-07-03 07:34] LABS: ALANINE AMINOTRANSFERASE 8 U/L (3-41); ALBUMIN/GLOBULIN RATIO 1.1 (1.0-2.7); ANION GAP 15 (5-15); ASPARTATE AMINO TRANSFERASE 15 U/L (5-40); CALCIUM 8.5 mg/dL (8.6-10.2); CARBON DIOXIDE 25 mEQ/L (20-30); CHLORIDE 100 mEQ/L (98-107); CREATININE 1.7 mg/dL (0.7-1.2); CRP QUANT 0.4 mg/dL (< 0.5); GLOMERULAR FILTRATION RATE 45.6 mL/min (>60); HEMOLYSIS 3; MAGNESIUM 1.4 mg/dL (1.7-2.5); PHOSPHORUS 4.2 mg/dL (2.5-4.8); POTASSIUM 3.9 mEQ/L (3.4-4.9); SODIUM 140 mEQ/L (135-145); TOTAL PROTEIN 6.2 g/dL (6.6-8.7); URIC ACID 6.7 mg/dL (3.0-7.5)
[2016-07-03 08:35] VITALS: BP 129/86
[2016-07-03] MEDS: Magnesium Oxide 400mg tab ORAL SCH ×3 (09:54→18:53)
[2016-07-03] MEDS: Heparin 5000 units/ml inj SUBQ SCH ×2 (10:12→20:59)
--- NOTE | 2016-07-03 11:44 | General Progress Note ---
Assessment/Plan Assessment/Plan ASSESSMENT: 1. Leukocytosis - due to underlying Histoplasmosis pneumonia, improved 2. Anemia secondary to chronic disease 3. Decreased hemoglobin and hematocrit, rule out GI bleed 4. Nausea and vomiting - now improved 5. Community-acquired pneumonia on abx 6. Eosinophilia history that is resolved 7. Acute kidney injury - on HD, monitoring per renal RECOMMENDATIONS: 1. Monitor counts and maintain hgb >7 2. Monitor wbc counts 3. Followup on renal, ID, pulm recs 4. Anemia w/u reviewed 5. Repeat smear has been reviewed 6. DVT ppx with heparin sq 7. Stable from hematology for discharge 8. staff Thank you, Brigid Winston MD Subjective Constitutional: Reports: no symptoms HEENT: Reports: no symptoms Cardiovascular: Reports: no symptoms Respiratory: Reports: no symptoms Gastrointestinal/Abdominal: Reports: no symptoms Genitourinary: Reports: no symptoms Neurologic/Psychiatric: Reports: no symptoms Endocrine: Reports: unexplained weight loss Hematologic/Lymphatic: Reports: anemia Allergies: Coded Allergies: PIPERACILLIN (Verified Adverse Reaction, Intermediate, 06/20/16) pt developed diffuse macular rash per ER MD notes. unclear if due to vanco or zosyn TAZOBACTAM (Verified Adverse Reaction, Intermediate, 06/20/16) pt developed diffuse macular rash per ER MD notes. unclear if due to vanco or zosyn VANCOMYCIN (Verified Adverse Reaction, Intermediate, 06/20/16) pt developed diffuse macular rash per ER MD notes. unclear if due to vanco or zosyn Subjective stable, no bleeding reported, no fevers or chills reported Objective Last 24 Hour Vital Signs Date Time Temp Pulse Resp B/P Pulse Ox O2 Delivery O2 Flow Rate FiO2 07/03/16 08:35 97.9 91 20 129/86 98 Room Air 07/03/16 07:00 Room Air 21 07/03/16 07:00 97 Room Air 21 07/03/16 07:00 63 18 Room Air 07/03/16 04:00 98.1 63 19 128/79 95 Room Air 07/03/16 00:00 98.1 78 19 149/89 94 Room Air 07/02/16 20:00 98.2 77 20 138/90 96 Room Air 07/02/16 19:55 Room Air 21 07/02/16 19:54 87 18 Room Air 07/02/16 19:54 97 Room Air 21 07/02/16 16:00 97.5 78 20 134/100 95 Room Air 07/02/16 12:00 97.7 67 20 136/93 Room Air Intake and Output 07/02/16 07/03/16 19:00 07:00 Intake Total 1040 ml 775 ml Balance 1040 ml 775 ml Intake Oral 1040 ml 720 ml IV Total 55 ml # Voids 6 5 # Bowel Movements 1 Laboratory Tests 07/03/16 05:10: White Blood Count 5.7, Red Blood Count 3.75L, Hemoglobin 11.1L, Hematocrit 31.9L , Mean Corpuscular Volume 85, Mean Corpuscular Hemoglobin 29.7, Mean Corpuscular Hemoglobin Concent 34.9, Red Cell Distribution Width 11.6, Platelet Count 213, Mean Platelet Volume 6.6, Neutrophils (%) (Auto) 58.2, Lymphocytes (% ) (Auto) 22.6, Monocytes (%) (Auto) 14.9H, Eosinophils (%) (Auto) 3.1H, Basophils (%) (Auto) 1.2, Sodium Level 140, Potassium Level 3.9, Chloride Level 100, Carbon Dioxide Level 25, Anion Gap 15, Blood Urea Nitrogen 21, Creatinine 1.7H, Estimat Glomerular Filtration Rate 45.6, Glucose Level 93, Uric Acid 6.7, Calcium Level 8.5L, Phosphorus Level 4.2, Magnesium Level 1.4L, Total Bilirubin 0.5, Gamma Glutamyl Transpeptidase 27, Aspartate Amino Transf (AST/SGOT) 15, Alanine Aminotransferase (ALT/SGPT) 8, Alkaline Phosphatase 42, Total Creatine Kinase 217H, C-Reactive Protein, Quantitative 0.4, Pro-B-Type Natriuretic Peptide 88, Total Protein 6.2L, Albumin 3.3L, Globulin 2.9, Albumin/Globulin Ratio 1.1 Height (Feet): 5 Height (Inches): 5.00 Weight (Pounds): 170 General Appearance: no apparent distress EENT: normal ENT inspection Neck: supple Cardiovascular: regular rhythm Respiratory/Chest: no respiratory distress Abdomen: non tender Extremities: non-tender Edema: 1+ Leg (L), 1+ Leg (R) Edema: mild edema Neurologic: alert Skin: warm/dry BRIGID WINSTON Jul 03, 2016 11:44
--- NOTE | 2016-07-03 11:50 | General Progress Note ---
Assessment/Plan Problem List: (1) Histoplasmosis pneumonia ICD Codes: B39.2 - Pulmonary histoplasmosis capsulati, unspecified SNOMED: 892018647 (2) Vomiting ICD Codes: R11.10 - Vomiting, unspecified SNOMED: 140695183 (3) Adverse reaction to antibiotic ICD Codes: T36.95XA - Adverse effect of unspecified systemic antibiotic, initial encounter SNOMED: 767403340, 821973671 Qualifiers: Qualified Codes: T36.95XA - Adverse effect of unspecified systemic antibiotic, initial encounter (4) Cavitary lung disease ICD Codes: J98.4 - Other disorders of lung SNOMED: 31592709 (5) Pneumonia ICD Codes: J18.9 - Pneumonia, unspecified organism SNOMED: 994298745 (6) HTN (hypertension) ICD Codes: I10 - Essential (primary) hypertension SNOMED: 36058765 Qualifiers: Qualified Codes: I10 - Essential (primary) hypertension (7) Hyperlipidemia, mixed ICD Codes: E78.2 - Mixed hyperlipidemia SNOMED: 997629195 (8) Pleurisy ICD Codes: R09.1 - Pleurisy SNOMED: 838632948 Status: progressing Assessment/Plan htn pna \ histoplasmosis pna clinically improving vitals stable no acute events Subjective ROS Limited/Unobtainable: Yes Constitutional: Reports: no symptoms Allergies: Coded Allergies: PIPERACILLIN (Verified Adverse Reaction, Intermediate, 06/20/16) pt developed diffuse macular rash per ER MD notes. unclear if due to vanco or zosyn TAZOBACTAM (Verified Adverse Reaction, Intermediate, 06/20/16) pt developed diffuse macular rash per ER MD notes. unclear if due to vanco or zosyn VANCOMYCIN (Verified Adverse Reaction, Intermediate, 06/20/16) pt developed diffuse macular rash per ER MD notes. unclear if due to vanco or zosyn Objective Last 24 Hour Vital Signs Date Time Temp Pulse Resp B/P Pulse Ox O2 Delivery O2 Flow Rate FiO2 07/03/16 08:35 97.9 91 20 129/86 98 Room Air 07/03/16 07:00 Room Air 21 07/03/16 07:00 97 Room Air 21 07/03/16 07:00 63 18 Room Air 07/03/16 04:00 98.1 63 19 128/79 95 Room Air 07/03/16 00:00 98.1 78 19 149/89 94 Room Air 07/02/16 20:00 98.2 77 20 138/90 96 Room Air 07/02/16 19:55 Room Air 07/02/16 19:54 87 18 Room Air 07/02/16 19:54 97 Room Air 21 07/02/16 16:00 97.5 78 20 134/100 95 Room Air 07/02/16 12:00 97.7 67 20 136/93 Room Air Intake and Output 07/02/16 07/03/16 19:00 07:00 Intake Total 1040 ml 775 ml Balance 1040 ml 775 ml Intake Oral 1040 ml 720 ml IV Total 55 ml # Voids 6 5 # Bowel Movements 1 Laboratory Tests 07/03/16 05:10: White Blood Count 5.7, Red Blood Count 3.75L, Hemoglobin 11.1L, Hematocrit 31.9L , Mean Corpuscular Volume 85, Mean Corpuscular Hemoglobin 29.7, Mean Corpuscular Hemoglobin Concent 34.9, Red Cell Distribution Width 11.6, Platelet Count 213, Mean Platelet Volume 6.6, Neutrophils (%) (Auto) 58.2, Lymphocytes (% ) (Auto) 22.6, Monocytes (%) (Auto) 14.9H, Eosinophils (%) (Auto) 3.1H, Basophils (%) (Auto) 1.2, Sodium Level 140, Potassium Level 3.9, Chloride Level 100, Carbon Dioxide Level 25, Anion Gap 15, Blood Urea Nitrogen 21, Creatinine 1.7H, Estimat Glomerular Filtration Rate 45.6, Glucose Level 93, Uric Acid 6.7, Calcium Level 8.5L, Phosphorus Level 4.2, Magnesium Level 1.4L, Total Bilirubin 0.5, Gamma Glutamyl Transpeptidase 27, Aspartate Amino Transf (AST/SGOT) 15, Alanine Aminotransferase (ALT/SGPT) 8, Alkaline Phosphatase 42, Total Creatine Kinase 217H, C-Reactive Protein, Quantitative 0.4, Pro-B-Type Natriuretic Peptide 88, Total Protein 6.2L, Albumin 3.3L, Globulin 2.9, Albumin/Globulin Ratio 1.1 Height (Feet): 5 Height (Inches): 5.00 Weight (Pounds): 170 EENT: PERRL/EOMI Neck: supple Cardiovascular: normal peripheral pulses Respiratory/Chest: lungs clear Abdomen: soft Hadadz,Ali MD Jul 03, 2016 11:50
[2016-07-03 12:25] VITALS: BP 128/83
--- NOTE | 2016-07-03 12:58 | Pulmonology Progress Note ---
Assessment/Plan Problems: (1) Lung abscess (2) Pneumonia (3) HTN (hypertension) (4) Adverse reaction to antibiotic (5) Pleurisy (6) HCAP (healthcare-associated pneumonia) Assessment/Plan wbc wnl blood cultures negative no sputum culture yet. keep on med/surg renal function continues to improve might go home with abx dc planning Subjective ROS Limited/Unobtainable: No Constitutional: Reports: no symptoms HEENT: Repors: no symptoms Cardiovascular: Reports: no symptoms Allergies: Coded Allergies: PIPERACILLIN (Verified Adverse Reaction, Intermediate, 06/20/16) pt developed diffuse macular rash per ER MD notes. unclear if due to vanco or zosyn TAZOBACTAM (Verified Adverse Reaction, Intermediate, 06/20/16) pt developed diffuse macular rash per ER MD notes. unclear if due to vanco or zosyn VANCOMYCIN (Verified Adverse Reaction, Intermediate, 06/20/16) pt developed diffuse macular rash per ER MD notes. unclear if due to vanco or zosyn Objective Last 24 Hour Vital Signs Date Time Temp Pulse Resp B/P Pulse Ox O2 Delivery O2 Flow Rate FiO2 07/03/16 08:35 97.9 91 20 129/86 98 Room Air 07/03/16 07:00 Room Air 07/03/16 07:00 97 Room Air 07/03/16 07:00 63 18 Room Air 07/03/16 04:00 98.1 63 19 128/79 95 Room Air 07/03/16 00:00 98.1 78 19 149/89 94 Room Air 07/02/16 20:00 98.2 77 20 138/90 96 Room Air 07/02/16 19:55 Room Air 07/02/16 19:54 87 18 Room Air 07/02/16 19:54 97 Room Air 07/02/16 16:00 97.5 78 20 134/100 95 Room Air Intake and Output 07/02/16 07/03/16 19:00 07:00 Intake Total 1040 ml 775 ml Balance 1040 ml 775 ml Intake Oral 1040 ml 720 ml IV Total 55 ml # Voids 6 5 # Bowel Movements 1 HEENT: normocephalic, atraumatic Respiratory/Chest: chest wall non-tender, lungs clear Cardiovascular: normal peripheral pulses, normal rate Abdomen: normal bowel sounds, soft, non tender Extremities: no cyanosis Skin: no rash Laboratory Tests 07/03/16 05:10: White Blood Count 5.7, Red Blood Count 3.75L, Hemoglobin 11.1L, Hematocrit 31.9L , Mean Corpuscular Volume 85, Mean Corpuscular Hemoglobin 29.7, Mean Corpuscular Hemoglobin Concent 34.9, Red Cell Distribution Width 11.6, Platelet Count 213, Mean Platelet Volume 6.6, Neutrophils (%) (Auto) 58.2, Lymphocytes (% ) (Auto) 22.6, Monocytes (%) (Auto) 14.9H, Eosinophils (%) (Auto) 3.1H, Basophils (%) (Auto) 1.2, Sodium Level 140, Potassium Level 3.9, Chloride Level 100, Carbon Dioxide Level 25, Anion Gap 15, Blood Urea Nitrogen 21, Creatinine 1.7H, Estimat Glomerular Filtration Rate 45.6, Glucose Level 93, Uric Acid 6.7, Calcium Level 8.5L, Phosphorus Level 4.2, Magnesium Level 1.4L, Total Bilirubin 0.5, Gamma Glutamyl Transpeptidase 27, Aspartate Amino Transf (AST/SGOT) 15, Alanine Aminotransferase (ALT/SGPT) 8, Alkaline Phosphatase 42, Total Creatine Kinase 217H, C-Reactive Protein, Quantitative 0.4, Pro-B-Type Natriuretic Peptide 88, Total Protein 6.2L, Albumin 3.3L, Globulin 2.9, Albumin/Globulin Ratio 1.1 Current Medications Medications (Trade) Dose Ordered Sig/Keila Route PRN Reason Start Time Stop Time Status Last Admin Dose Admin Acetaminophen (Tylenol) 650 mg Q4H PRN ORAL fever 06/23/16 21:00 07/23/16 20:59 Allopurinol (Allopurinol) 300 mg DAILY ORAL 06/29/16 09:00 07/29/16 08:59 07/03/16 09:54 Cefepime HCl/ Dextrose (Maxipime/D5W) 55 ml @ 110 mls/hr Q24H IV 06/23/16 21:00 07/07/16 20:59 07/02/16 22:12 Clonidine HCl (Catapres) 0.1 mg Q4H PRN ORAL BP over 170 syst 06/23/16 21:00 07/23/16 20:59 Heparin Sodium (Porcine) (Heparin 5000 units/ml) 5,000 units EVERY 12 HOURS SUBQ 1/19/17 21:00 07/23/16 20:59 07/03/16 10:12 Itraconazole (Sporanox) 200 mg Q12HR ORAL 06/23/16 21:00 07/07/16 20:59 07/03/16 09:53 Linezolid (Zyvox) 600 mg Q12HR ORAL 06/23/16 21:00 07/07/16 20:59 07/03/16 09:54 Magnesium Oxide 400 mg 400 mg THREE TIMES A DAY ORAL 06/29/16 13:00 07/29/16 12:59 07/03/16 09:54 Magnesium Sulfate (Magnesium Sulfate 1gm/100ml) 100 ml @ 100 mls/hr Q1H IVPB 07/03/16 12:00 07/03/16 15:59 Metronidazole (Flagyl) 500 mg Q8HR ORAL 06/23/16 22:00 07/07/16 21:59 07/03/16 05:10 Nitroglycerin (Ntg) 0.4 mg Q5MIN X3 PRN SL Prn Chest Pain 06/23/16 18:15 07/23/16 18:14 Ondansetron HCl (Zofran) 4 mg Q6H PRN IVP Nausea & Vomiting 06/23/16 19:00 07/23/16 18:59 Polyethylene Glycol (Miralax) 17 gm DAILYPRN PRN ORAL Constipation 06/24/16 13:00 07/24/16 12:59 Promethazine HCl/ Codeine 5 ml 5 ml Q4H PRN ORAL For Cough 06/23/16 21:00 07/23/16 20:59 06/30/16 20:07 Ranitidine HCl (Zantac) 150 mg BEDTIME ORAL 06/24/16 21:00 07/24/16 20:59 07/02/16 20:58 SAGAR CHRIS Jul 03, 2016 12:58
--- NOTE | 2016-07-03 13:07 | General Progress Note ---
Assessment/Plan Status: stable Status Narrative Cr 1.7 Assessment/Plan Status: Acute renal failure ( Allergic vs Sepsis) / RESOLVING NOW Urine positive for Eosinophils leading to Allergic etiology IMPROVING Other: 1) Lung abscess (2) Pneumonia (3) HTN (hypertension) (4) Adverse reaction to antibiotic (5) Pleurisy (6) HCAP (healthcare-associated pneumonia) Plan: I discontinued the right jugular dialysis catheter monitor renal parameters- HD last 06/25, Cr lowering without HD Slow hydrate ok to DC from renal stand point meds reviewed Subjective ROS Limited/Unobtainable: No Allergies: Coded Allergies: PIPERACILLIN (Verified Adverse Reaction, Intermediate, 06/20/16) pt developed diffuse macular rash per ER MD notes. unclear if due to vanco or zosyn TAZOBACTAM (Verified Adverse Reaction, Intermediate, 06/20/16) pt developed diffuse macular rash per ER MD notes. unclear if due to vanco or zosyn VANCOMYCIN (Verified Adverse Reaction, Intermediate, 06/20/16) pt developed diffuse macular rash per ER MD notes. unclear if due to vanco or zosyn Objective Last 24 Hour Vital Signs Date Time Temp Pulse Resp B/P Pulse Ox O2 Delivery O2 Flow Rate FiO2 07/03/16 08:35 97.9 91 20 129/86 98 Room Air 07/03/16 07:00 Room Air 07/03/16 07:00 97 Room Air 07/03/16 07:00 63 18 Room Air 07/03/16 04:00 98.1 63 19 128/79 95 Room Air 07/03/16 00:00 98.1 78 19 149/89 94 Room Air 07/02/16 20:00 98.2 77 20 138/90 96 Room Air 07/02/16 19:55 Room Air 07/02/16 19:54 87 18 Room Air 07/02/16 19:54 97 Room Air 07/02/16 16:00 97.5 78 20 134/100 95 Room Air Intake and Output 07/02/16 07/03/16 19:00 07:00 Intake Total 1040 ml 775 ml Balance 1040 ml 775 ml Intake Oral 1040 ml 720 ml IV Total 55 ml # Voids 6 5 # Bowel Movements 1 Laboratory Tests 07/03/16 05:10: White Blood Count 5.7, Red Blood Count 3.75L, Hemoglobin 11.1L, Hematocrit 31.9L , Mean Corpuscular Volume 85, Mean Corpuscular Hemoglobin 29.7, Mean Corpuscular Hemoglobin Concent 34.9, Red Cell Distribution Width 11.6, Platelet Count 213, Mean Platelet Volume 6.6, Neutrophils (%) (Auto) 58.2, Lymphocytes (% ) (Auto) 22.6, Monocytes (%) (Auto) 14.9H, Eosinophils (%) (Auto) 3.1H, Basophils (%) (Auto) 1.2, Sodium Level 140, Potassium Level 3.9, Chloride Level 100, Carbon Dioxide Level 25, Anion Gap 15, Blood Urea Nitrogen 21, Creatinine 1.7H, Estimat Glomerular Filtration Rate 45.6, Glucose Level 93, Uric Acid 6.7, Calcium Level 8.5L, Phosphorus Level 4.2, Magnesium Level 1.4L, Total Bilirubin 0.5, Gamma Glutamyl Transpeptidase 27, Aspartate Amino Transf (AST/SGOT) 15, Alanine Aminotransferase (ALT/SGPT) 8, Alkaline Phosphatase 42, Total Creatine Kinase 217H, C-Reactive Protein, Quantitative 0.4, Pro-B-Type Natriuretic Peptide 88, Total Protein 6.2L, Albumin 3.3L, Globulin 2.9, Albumin/Globulin Ratio 1.1 Height (Feet): 5 Height (Inches): 5.00 Weight (Pounds): 170 General Appearance: no apparent distress Objective PE no change MILA GARCIA Jul 03, 2016 13:07
[2016-07-03 16:12] VITALS: BP 130/83
[2016-07-03 20:40] VITALS: BP 142/89
[2016-07-03] MEDS: Cefepime HCl 500 MG in D5W 55 ML IV SCH (20:54)
[2016-07-04] VITALS: BP 130/77
[2016-07-04] MEDS: Promethazine/Codeine 5ml UD ORAL PRN ×5 (00:01→22:09)
[2016-07-04 04:00] VITALS: BP 126/87
[2016-07-04] MEDS: metroNIDAZOLE 500mg tab ORAL SCH ×3 (05:57→22:10)
[2016-07-04 08:00] VITALS: BP 131/87
[2016-07-04] MEDS: Magnesium Oxide 400mg tab ORAL SCH ×3 (08:37→17:13)
[2016-07-04] MEDS: Heparin 5000 units/ml inj SUBQ SCH ×2 (08:41→22:11)
--- NOTE | 2016-07-04 11:38 | General Progress Note ---
Assessment/Plan Problem List: (1) Histoplasmosis pneumonia ICD Codes: B39.2 - Pulmonary histoplasmosis capsulati, unspecified SNOMED: 312094203 (2) Vomiting ICD Codes: R11.10 - Vomiting, unspecified SNOMED: 510015408 (3) Adverse reaction to antibiotic ICD Codes: T36.95XA - Adverse effect of unspecified systemic antibiotic, initial encounter SNOMED: 978183683, 449281744 Qualifiers: Qualified Codes: T36.95XA - Adverse effect of unspecified systemic antibiotic, initial encounter (4) Cavitary lung disease ICD Codes: J98.4 - Other disorders of lung SNOMED: 57554022 (5) Pneumonia ICD Codes: J18.9 - Pneumonia, unspecified organism SNOMED: 803620988 (6) HTN (hypertension) ICD Codes: I10 - Essential (primary) hypertension SNOMED: 19484978 Qualifiers: Qualified Codes: I10 - Essential (primary) hypertension (7) Hyperlipidemia, mixed ICD Codes: E78.2 - Mixed hyperlipidemia SNOMED: 302537981 (8) Pleurisy ICD Codes: R09.1 - Pleurisy SNOMED: 317788605 Status: progressing Assessment/Plan htn pna \ histoplasmosis pna afebrle vitals stable clinically improving Subjective ROS Limited/Unobtainable: Yes Constitutional: Reports: no symptoms Allergies: Coded Allergies: PIPERACILLIN (Verified Adverse Reaction, Intermediate, 06/20/16) pt developed diffuse macular rash per ER MD notes. unclear if due to vanco or zosyn TAZOBACTAM (Verified Adverse Reaction, Intermediate, 06/20/16) pt developed diffuse macular rash per ER MD notes. unclear if due to vanco or zosyn VANCOMYCIN (Verified Adverse Reaction, Intermediate, 06/20/16) pt developed diffuse macular rash per ER MD notes. unclear if due to vanco or zosyn Objective Last 24 Hour Vital Signs Date Time Temp Pulse Resp B/P Pulse Ox O2 Delivery O2 Flow Rate FiO2 07/04/16 08:00 98.1 103 20 131/87 96 Room Air 07/04/16 04:00 98.8 69 20 126/87 97 Room Air 07/04/16 00:00 99.5 72 18 130/77 96 Room Air 07/03/16 20:40 97.5 84 19 142/89 96 Room Air 07/03/16 19:00 96 Room Air 21 1/29/17 19:00 Room Air 07/03/16 16:12 98.1 78 18 130/83 94 Room Air 07/03/16 12:25 96.9 80 20 128/83 97 Room Air Intake and Output 07/03/16 07/04/16 19:00 07:00 Intake Total 360 ml 740 ml Output Total 2 ml Balance 360 ml 738 ml Intake Oral 360 ml 740 ml Output Urine Total 2 ml # Voids 2 2 Height (Feet): 5 Height (Inches): 5.00 Weight (Pounds): 170 EENT: PERRL/EOMI Neck: supple Cardiovascular: normal rate Respiratory/Chest: lungs clear Jesse Dean MD Jul 04, 2016 11:38
[2016-07-04 12:07] VITALS: BP 135/90
--- NOTE | 2016-07-04 13:33 | General Progress Note ---
Assessment/Plan Status: stable Assessment/Plan Status: Acute renal failure ( Allergic vs Sepsis) / RESOLVING NOW Urine positive for Eosinophils leading to Allergic etiology IMPROVING Other: 1) Lung abscess (2) Pneumonia (3) HTN (hypertension) (4) Adverse reaction to antibiotic (5) Pleurisy (6) HCAP (healthcare-associated pneumonia) Plan: I discontinued the right jugular dialysis catheter monitor renal parameters- HD last 06/25, Cr lowering without HD Slow hydrate ok to DC from renal stand point meds reviewed Subjective ROS Limited/Unobtainable: No Allergies: Coded Allergies: PIPERACILLIN (Verified Adverse Reaction, Intermediate, 06/20/16) pt developed diffuse macular rash per ER MD notes. unclear if due to vanco or zosyn TAZOBACTAM (Verified Adverse Reaction, Intermediate, 06/20/16) pt developed diffuse macular rash per ER MD notes. unclear if due to vanco or zosyn VANCOMYCIN (Verified Adverse Reaction, Intermediate, 06/20/16) pt developed diffuse macular rash per ER MD notes. unclear if due to vanco or zosyn Objective Last 24 Hour Vital Signs Date Time Temp Pulse Resp B/P Pulse Ox O2 Delivery O2 Flow Rate FiO2 07/04/16 12:07 97.9 104 20 135/90 96 Room Air 07/04/16 08:00 98.1 103 20 131/87 96 Room Air 07/04/16 04:00 98.8 69 20 126/87 97 Room Air 07/04/16 00:00 99.5 72 18 130/77 96 Room Air 07/03/16 20:40 97.5 84 19 142/89 96 Room Air 07/03/16 19:00 96 Room Air 21 07/03/16 19:00 Room Air 07/03/16 16:12 98.1 78 18 130/83 94 Room Air Intake and Output 07/03/16 07/04/16 19:00 07:00 Intake Total 360 ml 740 ml Output Total 2 ml Balance 360 ml 738 ml Intake Oral 360 ml 740 ml Output Urine Total 2 ml # Voids 2 2 Height (Feet): 5 Height (Inches): 5.00 Weight (Pounds): 170 General Appearance: no apparent distress Objective PE no change MILA GARCIA Jul 04, 2016 13:33
[2016-07-04 16:00] VITALS: BP 142/95
--- NOTE | 2016-07-04 17:35 | Infectious Diseases Prog Note ---
Assessment/Plan Problems: (1) Lung abscess Assessment & Plan: improving, will continue Zyvox , cefepime and flagyl for 4 weeks , EOT 07/20/16. recommend to repeat CT scan of the chest in 4 weeks for follow up, sputum culture showed normal keo so far. needs follow up with PCP after discharge. (2) HCAP (healthcare-associated pneumonia) Assessment & Plan: improving, continue zyvox , and cefepime empirically, sputum and blood culture are negative so far . (3) Adverse reaction to antibiotic Assessment & Plan: unclear whether due to vancomycin VS zosyn , most likely vancomycin since it happened fast after infusion, suspect red man syndrome. avoid both classes of antibiotics for now, ok to use cephalosporins since he received it last admission with no reaction (4) Histoplasmosis pneumonia Assessment & Plan: continue itraconazole for three months total , monitor LFT (5) LISET (acute kidney injury) Assessment & Plan: resolved, had HD cath placed by renal, and had HD, HD cath was removed, avoid nephrotoxic meds. (6) Leukocytosis Assessment & Plan: due to steroids , now improving after D/C . Subjective Respiratory: Reports: productive cough Allergies: Coded Allergies: PIPERACILLIN (Verified Adverse Reaction, Intermediate, 06/20/16) pt developed diffuse macular rash per ER MD notes. unclear if due to vanco or zosyn TAZOBACTAM (Verified Adverse Reaction, Intermediate, 06/20/16) pt developed diffuse macular rash per ER MD notes. unclear if due to vanco or zosyn VANCOMYCIN (Verified Adverse Reaction, Intermediate, 06/20/16) pt developed diffuse macular rash per ER MD notes. unclear if due to vanco or zosyn All Systems: reviewed and negative except above Subjective he was doing ok. no skin rash or hives, tolerated current antibiotics well. Objective Vital Signs Last 24 Hour Vital Signs Date Time Temp Pulse Resp B/P Pulse Ox O2 Delivery O2 Flow Rate FiO2 07/04/16 16:00 98.6 111 18 142/95 100 Room Air 07/04/16 12:07 97.9 104 20 135/90 96 Room Air 07/04/16 08:00 98.1 103 20 131/87 96 Room Air 07/04/16 04:00 98.8 69 20 126/87 97 Room Air 07/04/16 00:00 99.5 72 18 130/77 96 Room Air 07/03/16 20:40 97.5 84 19 142/89 96 Room Air 07/03/16 19:00 96 Room Air 21 07/03/16 19:00 Room Air Height (Feet): 5 Height (Inches): 5.00 Weight (Pounds): 170 General Appearance: WD/WN, no acute distress HEENT: normocephalic, atraumatic, anicteric, mucous membranes moist Respiratory/Chest: chest wall non-tender, normal breath sounds, no respiratory distress, no accessory muscle use, decreased breath sounds, crackles/rales Cardiovascular: normal peripheral pulses, normal rate, regular rhythm, no gallop/murmur, no JVD Abdomen: normal bowel sounds, soft, non tender, no organomegaly, non distended , no mass, no scars Extremities: no cyanosis, no clubbing Skin: no rash, no lesions Current Medications Medications (Trade) Dose Ordered Sig/Keila Route PRN Reason Start Time Stop Time Status Last Admin Dose Admin Acetaminophen (Tylenol) 650 mg Q4H PRN ORAL fever 06/23/16 21:00 07/23/16 20:59 Allopurinol (Allopurinol) 300 mg DAILY ORAL 06/29/16 09:00 07/29/16 08:59 07/04/16 08:37 Cefepime HCl/ Dextrose (Maxipime/D5W) 55 ml @ 110 mls/hr Q24H IV 06/23/16 21:00 07/07/16 20:59 07/03/16 20:54 Clonidine HCl (Catapres) 0.1 mg Q4H PRN ORAL BP over 170 syst 06/23/16 21:00 07/23/16 20:59 Heparin Sodium (Porcine) (Heparin 5000 units/ml) 5,000 units EVERY 12 HOURS SUBQ 06/23/16 21:00 07/23/16 20:59 07/04/16 08:41 Itraconazole (Sporanox) 200 mg Q12HR ORAL 06/23/16 21:00 07/07/16 20:59 07/04/16 08:37 Linezolid (Zyvox) 600 mg Q12HR ORAL 06/23/16 21:00 07/07/16 20:59 07/04/16 08:37 Magnesium Oxide (Mag-Ox 400mg) 400 mg THREE TIMES A DAY ORAL 06/29/16 13:00 07/29/16 12:59 07/04/16 17:13 Metronidazole (Flagyl) 500 mg Q8HR ORAL 06/23/16 22:00 07/07/16 21:59 07/04/16 12:13 Nitroglycerin (Ntg) 0.4 mg Q5MIN X3 PRN SL Prn Chest Pain 06/23/16 18:15 07/23/16 18:14 Ondansetron HCl (Zofran) 4 mg Q6H PRN IVP Nausea & Vomiting 06/23/16 19:00 07/23/16 18:59 Polyethylene Glycol (Miralax) 17 gm DAILYPRN PRN ORAL Constipation 06/24/16 13:00 07/24/16 12:59 Promethazine HCl/ Codeine 5 ml 5 ml Q4H PRN ORAL For Cough 06/23/16 21:00 07/23/16 20:59 07/04/16 17:16 Ranitidine HCl (Zantac) 150 mg BEDTIME ORAL 06/24/16 21:00 07/24/16 20:59 07/03/16 20:54 Erin Navarrete M.D. Jul 04, 2016 17:35
--- NOTE | 2016-07-04 19:12 | General Progress Note ---
Assessment/Plan Assessment/Plan ASSESSMENT: 1. Leukocytosis - due to underlying Histoplasmosis pneumonia v steriods; resolved 2. Anemia secondary to chronic disease 3. Decreased hemoglobin and hematocrit, rule out GI bleed 4. Nausea and vomiting - now improved 5. Community-acquired pneumonia on abx 6. Eosinophilia history that is resolved 7. Acute kidney injury - on HD, monitoring per renal RECOMMENDATIONS: 1. Monitor counts and maintain hgb >7 2. Monitor wbc counts 3. Followup on renal, ID, pulm recs 4. Anemia w/u reviewed 5. Repeat smear has been reviewed 6. DVT ppx with heparin sq 7. Stable from hematology for discharge 8. staff Thank you, Gerry Winston MD Subjective Constitutional: Reports: no symptoms HEENT: Reports: no symptoms Cardiovascular: Reports: no symptoms Respiratory: Reports: no symptoms Gastrointestinal/Abdominal: Reports: poor appetite Genitourinary: Reports: no symptoms Neurologic/Psychiatric: Reports: no symptoms Endocrine: Reports: no symptoms Hematologic/Lymphatic: Reports: anemia Allergies: Coded Allergies: PIPERACILLIN (Verified Adverse Reaction, Intermediate, 06/20/16) pt developed diffuse macular rash per ER MD notes. unclear if due to vanco or zosyn TAZOBACTAM (Verified Adverse Reaction, Intermediate, 06/20/16) pt developed diffuse macular rash per ER MD notes. unclear if due to vanco or zosyn VANCOMYCIN (Verified Adverse Reaction, Intermediate, 06/20/16) pt developed diffuse macular rash per ER MD notes. unclear if due to vanco or zosyn Subjective stable, feeling better, no complaints this am, no bleeding Objective Last 24 Hour Vital Signs Date Time Temp Pulse Resp B/P Pulse Ox O2 Delivery O2 Flow Rate FiO2 07/04/16 16:00 98.6 111 18 142/95 100 Room Air 07/04/16 12:07 97.9 104 20 135/90 96 Room Air 07/04/16 08:00 98.1 103 20 131/87 96 Room Air 07/04/16 04:00 98.8 69 20 126/87 97 Room Air 07/04/16 00:00 99.5 72 18 130/77 96 Room Air 07/03/16 20:40 97.5 84 19 142/89 96 Room Air Intake and Output 07/03/16 07/04/16 19:00 07:00 Intake Total 360 ml 740 ml Output Total 2 ml Balance 360 ml 738 ml Intake Oral 360 ml 740 ml Output Urine Total 2 ml # Voids 2 2 Height (Feet): 5 Height (Inches): 5.00 Weight (Pounds): 170 General Appearance: no apparent distress EENT: TMs normal Neck: supple Cardiovascular: regular rhythm Respiratory/Chest: normal breath sounds Abdomen: soft Extremities: normal inspection Edema: 1+ Leg (L), 1+ Leg (R) Edema: mild edema Neurologic: no motor/sensory deficits Skin: warm/dry Gerry Winston Jul 04, 2016 19:12
[2016-07-04 20:00] VITALS: BP 144/94
--- NOTE | 2016-07-04 20:08 | Cardiac Electrophysiology PN ---
Assessment/Plan Assessment/Plan 1. Sinus tachycardia due to sepsis and renal failure. 2. Hypertension, Add Norvasc 5 mg daily. On Prn Clonidine also. 3. History of histoplasmosis. 4. Shortness of breath due to healthcare-associated pneumonia. 5. Acute renal failure. Resolved. HEIDI RN Subjective Subjective Still has productive cough on IV abx. Objective Last 24 Hour Vital Signs Date Time Temp Pulse Resp B/P Pulse Ox O2 Delivery O2 Flow Rate FiO2 07/04/16 16:00 98.6 111 18 142/95 100 Room Air 07/04/16 12:07 97.9 104 20 135/90 96 Room Air 07/04/16 08:00 98.1 103 20 131/87 96 Room Air 07/04/16 04:00 98.8 69 20 126/87 97 Room Air 07/04/16 00:00 99.5 72 18 130/77 96 Room Air 07/03/16 20:40 97.5 84 19 142/89 96 Room Air Intake and Output 07/03/16 07/04/16 19:00 07:00 Intake Total 360 ml 740 ml Output Total 2 ml Balance 360 ml 738 ml Intake Oral 360 ml 740 ml Output Urine Total 2 ml # Voids 2 2 Current Medications Medications (Trade) Dose Ordered Sig/Keila Route PRN Reason Start Time Stop Time Status Last Admin Dose Admin Acetaminophen (Tylenol) 650 mg Q4H PRN ORAL fever 06/23/16 21:00 07/23/16 20:59 Allopurinol (Allopurinol) 300 mg DAILY ORAL 06/29/16 09:00 07/29/16 08:59 07/04/16 08:37 Cefepime HCl/ Dextrose (Maxipime/D5W) 55 ml @ 110 mls/hr Q24H IV 06/23/16 21:00 07/07/16 20:59 07/03/16 20:54 Clonidine HCl (Catapres) 0.1 mg Q4H PRN ORAL BP over 170 syst 06/23/16 21:00 07/23/16 20:59 Heparin Sodium (Porcine) (Heparin 5000 units/ml) 5,000 units EVERY 12 HOURS SUBQ 06/23/16 21:00 07/23/16 20:59 07/04/16 08:41 Itraconazole (Sporanox) 200 mg Q12HR ORAL 06/23/16 21:00 2/2/17 20:59 07/04/16 08:37 Linezolid (Zyvox) 600 mg Q12HR ORAL 06/23/16 21:00 07/07/16 20:59 07/04/16 08:37 Magnesium Oxide (Mag-Ox 400mg) 400 mg THREE TIMES A DAY ORAL 06/29/16 13:00 07/29/16 12:59 07/04/16 17:13 Metronidazole (Flagyl) 500 mg Q8HR ORAL 06/23/16 22:00 07/07/16 21:59 07/04/16 12:13 Nitroglycerin (Ntg) 0.4 mg Q5MIN X3 PRN SL Prn Chest Pain 06/23/16 18:15 07/23/16 18:14 Ondansetron HCl (Zofran) 4 mg Q6H PRN IVP Nausea & Vomiting 06/23/16 19:00 07/23/16 18:59 Polyethylene Glycol (Miralax) 17 gm DAILYPRN PRN ORAL Constipation 06/24/16 13:00 07/24/16 12:59 Promethazine HCl/ Codeine 5 ml 5 ml Q4H PRN ORAL For Cough 06/23/16 21:00 07/23/16 20:59 07/04/16 17:16 Ranitidine HCl (Zantac) 150 mg BEDTIME ORAL 06/24/16 21:00 07/24/16 20:59 07/03/16 20:54 Objective NECK: Shows no JVD. LUNGS: Coarse rhonchi. CARDIOVASCULAR: Shows regular S1 and S2 with no gallop or murmur. ABDOMEN: Soft. EXTREMITIES: No pitting edema. JOHN PENA Jul 04, 2016 20:08
[2016-07-04] MEDS: Cefepime HCl 500 MG in D5W 55 ML IV SCH (22:09)
--- NOTE | 2016-07-04 23:01 | Pulmonology Progress Note ---
Assessment/Plan Problems: (1) Lung abscess (2) Pneumonia (3) HTN (hypertension) (4) Adverse reaction to antibiotic (5) Pleurisy (6) HCAP (healthcare-associated pneumonia) Assessment/Plan wbc wnl blood cultures negative no sputum culture yet. keep on med/surg renal function continues to improve might go home with abx dc planning Subjective Interval Events: no new complains Allergies: Coded Allergies: PIPERACILLIN (Verified Adverse Reaction, Intermediate, 06/20/16) pt developed diffuse macular rash per ER MD notes. unclear if due to vanco or zosyn TAZOBACTAM (Verified Adverse Reaction, Intermediate, 06/20/16) pt developed diffuse macular rash per ER MD notes. unclear if due to vanco or zosyn VANCOMYCIN (Verified Adverse Reaction, Intermediate, 06/20/16) pt developed diffuse macular rash per ER MD notes. unclear if due to vanco or zosyn Objective Last 24 Hour Vital Signs Date Time Temp Pulse Resp B/P Pulse Ox O2 Delivery O2 Flow Rate FiO2 07/04/16 20:00 100.2 125 16 144/94 94 Room Air 07/04/16 19:30 Room Air 21 07/04/16 19:30 97 Room Air 21 07/04/16 16:00 98.6 111 18 142/95 100 Room Air 07/04/16 12:07 97.9 104 20 135/90 96 Room Air 07/04/16 08:00 98.1 103 20 131/87 96 Room Air 07/04/16 04:00 98.8 69 20 126/87 97 Room Air 07/04/16 00:00 99.5 72 18 130/77 96 Room Air Intake and Output 07/03/16 07/04/16 19:00 07:00 Intake Total 360 ml 740 ml Output Total 2 ml Balance 360 ml 738 ml Intake Oral 360 ml 740 ml Output Urine Total 2 ml # Voids 2 2 General Appearance: WD/WN HEENT: normocephalic Respiratory/Chest: chest wall non-tender, lungs clear Cardiovascular: normal peripheral pulses, normal rate Abdomen: normal bowel sounds Genitourinary: normal external genitalia 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, alert Lymphatic: no groin adenopathy Current Medications Medications (Trade) Dose Ordered Sig/Keila Route PRN Reason Start Time Stop Time Status Last Admin Dose Admin Acetaminophen (Tylenol) 650 mg Q4H PRN ORAL fever 06/23/16 21:00 07/23/16 20:59 Allopurinol (Allopurinol) 300 mg DAILY ORAL 06/29/16 09:00 07/29/16 08:59 07/04/16 08:37 Amlodipine Besylate (Norvasc) 5 mg DAILY ORAL 07/05/16 09:00 08/04/16 08:59 Cefepime HCl/ Dextrose (Maxipime/D5W) 55 ml @ 110 mls/hr Q24H IV 06/23/16 21:00 07/07/16 20:59 07/04/16 22:09 Clonidine HCl (Catapres) 0.1 mg Q4H PRN ORAL BP over 170 syst 06/23/16 21:00 07/23/16 20:59 Heparin Sodium (Porcine) (Heparin 5000 units/ml) 5,000 units EVERY 12 HOURS SUBQ 06/23/16 21:00 07/23/16 20:59 07/04/16 22:11 Itraconazole (Sporanox) 200 mg Q12HR ORAL 06/23/16 21:00 07/07/16 20:59 07/04/16 22:10 Linezolid (Zyvox) 600 mg Q12HR ORAL 06/23/16 21:00 07/07/16 20:59 07/04/16 22:10 Magnesium Oxide (Mag-Ox 400mg) 400 mg THREE TIMES A DAY ORAL 06/29/16 13:00 07/29/16 12:59 07/04/16 17:13 Metronidazole (Flagyl) 500 mg Q8HR ORAL 06/23/16 22:00 07/07/16 21:59 07/04/16 22:10 Nitroglycerin (Ntg) 0.4 mg Q5MIN X3 PRN SL Prn Chest Pain 06/23/16 18:15 07/23/16 18:14 Ondansetron HCl (Zofran) 4 mg Q6H PRN IVP Nausea & Vomiting 06/23/16 19:00 07/23/16 18:59 Polyethylene Glycol (Miralax) 17 gm DAILYPRN PRN ORAL Constipation 06/24/16 13:00 07/24/16 12:59 Promethazine HCl/ Codeine 5 ml 5 ml Q4H PRN ORAL For Cough 06/23/16 21:00 07/23/16 20:59 07/04/16 22:09 Ranitidine HCl (Zantac) 150 mg BEDTIME ORAL 06/24/16 21:00 07/24/16 20:59 07/04/16 22:10 SAGAR CHRIS Jul 04, 2016 23:01
[2016-07-05] VITALS: BP 144/94
[2016-07-05 04:00] VITALS: BP 146/92
[2016-07-05] MEDS: Promethazine/Codeine 5ml UD ORAL PRN ×3 (04:14→22:11)
[2016-07-05] MEDS: metroNIDAZOLE 500mg tab ORAL SCH ×3 (06:25→21:05)
[2016-07-05 08:00] VITALS: BP 110/72
[2016-07-05] MEDS: Magnesium Oxide 400mg tab ORAL SCH ×3 (08:33→17:58)
[2016-07-05] MEDS: Heparin 5000 units/ml inj SUBQ SCH ×2 (08:39→20:38)
--- NOTE | 2016-07-05 09:51 | Cardiac Electrophysiology PN ---
Assessment/Plan Assessment/Plan 1. Sinus tachycardia due to sepsis and renal failure. Was still tachy this am. Will get Stat CBC and BMP. 2. Hypertension. On Norvasc 5 mg daily and Prn Clonidine 3. History of histoplasmosis. 4. Shortness of breath due to healthcare-associated pneumonia. 5. Acute renal failure. Resolved. HEIDI RN Subjective Subjective Still has productive cough. Was tachycardic up to 120s earlier. Objective Last 24 Hour Vital Signs Date Time Temp Pulse Resp B/P Pulse Ox O2 Delivery O2 Flow Rate FiO2 07/05/16 08:33 89 144/92 07/05/16 08:00 99.1 112 22 110/72 96 Room Air 07/05/16 04:00 99.1 97 20 146/92 92 Room Air 07/05/16 02:13 97.5 07/05/16 00:00 100.4 117 18 144/94 93 Room Air 07/04/16 20:00 100.2 125 16 144/94 94 Room Air 07/04/16 19:30 Room Air 21 07/04/16 19:30 97 Room Air 21 07/04/16 16:00 98.6 111 18 142/95 100 Room Air 07/04/16 12:07 97.9 104 20 135/90 96 Room Air Intake and Output 07/04/16 07/05/16 19:00 07:00 Intake Total 600 ml 180 ml Balance 600 ml 180 ml Intake Oral 600 ml 180 ml # Voids 3 1 Current Medications Medications (Trade) Dose Ordered Sig/Keila Route PRN Reason Start Time Stop Time Status Last Admin Dose Admin Acetaminophen (Tylenol) 650 mg Q4H PRN ORAL fever 06/23/16 21:00 07/23/16 20:59 07/05/16 00:55 Allopurinol (Allopurinol) 300 mg DAILY ORAL 06/29/16 09:00 07/29/16 08:59 07/05/16 08:33 Amlodipine Besylate (Norvasc) 5 mg DAILY ORAL 07/05/16 09:00 08/04/16 08:59 07/05/16 08:33 Cefepime HCl/ Dextrose (Maxipime/D5W) 55 ml @ 110 mls/hr Q24H IV 06/23/16 21:00 07/07/16 20:59 07/04/16 22:09 Clonidine HCl (Catapres) 0.1 mg Q4H PRN ORAL BP over 170 syst 06/23/16 21:00 07/23/16 20:59 Heparin Sodium (Porcine) (Heparin 5000 units/ml) 5,000 units EVERY 12 HOURS SUBQ 06/23/16 21:00 07/23/16 20:59 07/04/16 22:11 Itraconazole (Sporanox) 200 mg Q12HR ORAL 06/23/16 21:00 07/07/16 20:59 07/05/16 08:39 Linezolid (Zyvox) 600 mg Q12HR ORAL 06/23/16 21:00 07/07/16 20:59 07/05/16 08:33 Magnesium Oxide (Mag-Ox 400mg) 400 mg THREE TIMES A DAY ORAL 06/29/16 13:00 07/29/16 12:59 07/05/16 08:33 Metronidazole (Flagyl) 500 mg Q8HR ORAL 06/23/16 22:00 07/07/16 21:59 07/05/16 06:25 Nitroglycerin (Ntg) 0.4 mg Q5MIN X3 PRN SL Prn Chest Pain 06/23/16 18:15 07/23/16 18:14 Ondansetron HCl (Zofran) 4 mg Q6H PRN IVP Nausea & Vomiting 06/23/16 19:00 07/23/16 18:59 Polyethylene Glycol (Miralax) 17 gm DAILYPRN PRN ORAL Constipation 06/24/16 13:00 07/24/16 12:59 Promethazine HCl/ Codeine 5 ml 5 ml Q4H PRN ORAL For Cough 06/23/16 21:00 07/23/16 20:59 07/05/16 04:14 Ranitidine HCl (Zantac) 150 mg BEDTIME ORAL 06/24/16 21:00 07/24/16 20:59 07/04/16 22:10 Objective NECK: Shows no JVD. LUNGS: Coarse rhonchi. CARDIOVASCULAR: Shows regular S1 and S2 with no gallop or murmur. ABDOMEN: Soft. EXTREMITIES: No pitting edema. JOHN PENA Jul 05, 2016 09:51
[2016-07-05 11:00] LABS: BASOPHILS % (AUTO) 1.5 % (0.0-2.0); EOSINOPHILS % (AUTO) 1.8 % (0.0-3.0); LYMPHOCYTES % (AUTO) 8.6 % (20.0-45.0); MEAN CORPUSCULAR HEMOGLOBIN 29.2 PG (27.0-31.0); MEAN CORPUSCULAR HGB CONC 34.4 G/DL (32.0-36.0); MEAN CORPUSCULAR VOLUME 85 FL (80-99); MEAN PLATELET VOLUME 7.5 FL (6.5-10.1); MONOCYTES % (AUTO) 16.7 % (1.0-10.0); NEUTROPHILS % (AUTO) 71.4 % (45.0-75.0); PLATELET COUNT 165 K/UL (150-450); RED BLOOD COUNT 4.06 M/UL (4.70-6.10); RED CELL DISTRIBUTION WIDTH 11.9 % (11.6-14.8); WHITE BLOOD COUNT 6.2 K/UL (4.8-10.8)
[2016-07-05 11:20] LABS: CALCIUM 8.8 mg/dL (8.6-10.2); CREATININE 1.4 mg/dL (0.7-1.2)
[2016-07-05 12:00] VITALS: BP 139/86
--- NOTE | 2016-07-05 12:50 | General Progress Note ---
Assessment/Plan Problem List: (1) Histoplasmosis pneumonia ICD Codes: B39.2 - Pulmonary histoplasmosis capsulati, unspecified SNOMED: 668702289 (2) Vomiting ICD Codes: R11.10 - Vomiting, unspecified SNOMED: 013777521 (3) Adverse reaction to antibiotic ICD Codes: T36.95XA - Adverse effect of unspecified systemic antibiotic, initial encounter SNOMED: 456194751, 426688131 Qualifiers: Qualified Codes: T36.95XA - Adverse effect of unspecified systemic antibiotic, initial encounter (4) Cavitary lung disease ICD Codes: J98.4 - Other disorders of lung SNOMED: 73796985 (5) Pneumonia ICD Codes: J18.9 - Pneumonia, unspecified organism SNOMED: 119915121 (6) HTN (hypertension) ICD Codes: I10 - Essential (primary) hypertension SNOMED: 43410206 Qualifiers: Qualified Codes: I10 - Essential (primary) hypertension (7) Hyperlipidemia, mixed ICD Codes: E78.2 - Mixed hyperlipidemia SNOMED: 449542282 (8) Pleurisy ICD Codes: R09.1 - Pleurisy SNOMED: 662298672 Status: progressing Assessment/Plan pna resp insuff improving afebrile vitals stable clinically improving Subjective ROS Limited/Unobtainable: Yes Constitutional: Reports: no symptoms Allergies: Coded Allergies: PIPERACILLIN (Verified Adverse Reaction, Intermediate, 06/20/16) pt developed diffuse macular rash per ER MD notes. unclear if due to vanco or zosyn TAZOBACTAM (Verified Adverse Reaction, Intermediate, 06/20/16) pt developed diffuse macular rash per ER MD notes. unclear if due to vanco or zosyn VANCOMYCIN (Verified Adverse Reaction, Intermediate, 06/20/16) pt developed diffuse macular rash per ER MD notes. unclear if due to vanco or zosyn Objective Last 24 Hour Vital Signs Date Time Temp Pulse Resp B/P Pulse Ox O2 Delivery O2 Flow Rate FiO2 07/05/16 12:00 98.4 110 20 139/86 96 Room Air 07/05/16 08:33 89 144/92 07/05/16 08:00 99.1 112 22 110/72 96 Room Air 07/05/16 04:00 99.1 97 20 146/92 92 Room Air 07/05/16 02:13 97.5 07/05/16 00:00 100.4 117 18 144/94 93 Room Air 07/04/16 20:00 100.2 125 16 144/94 94 Room Air 07/04/16 19:30 Room Air 21 07/04/16 19:30 97 Room Air 21 07/04/16 16:00 98.6 111 18 142/95 100 Room Air Intake and Output 07/04/16 07/05/16 19:00 07:00 Intake Total 600 ml 180 ml Balance 600 ml 180 ml Intake Oral 600 ml 180 ml # Voids 3 1 Laboratory Tests 07/05/16 10:10: White Blood Count 6.2, Red Blood Count 4.06L, Hemoglobin 11.9L, Hematocrit 34.4L , Mean Corpuscular Volume 85, Mean Corpuscular Hemoglobin 29.2, Mean Corpuscular Hemoglobin Concent 34.4, Red Cell Distribution Width 11.9, Platelet Count 165, Mean Platelet Volume 7.5, Neutrophils (%) (Auto) 71.4, Lymphocytes (% ) (Auto) 8.6L, Monocytes (%) (Auto) 16.7H, Eosinophils (%) (Auto) 1.8, Basophils (%) (Auto) 1.5, Sodium Level 139, Potassium Level 4.0, Chloride Level 101, Carbon Dioxide Level 25, Anion Gap 13, Blood Urea Nitrogen 14, Creatinine 1.4H, Estimat Glomerular Filtration Rate 57.0, Glucose Level 101, Calcium Level 8.8 Height (Feet): 5 Height (Inches): 5.00 Weight (Pounds): 170 EENT: PERRL/EOMI Neck: supple Cardiovascular: normal rate Respiratory/Chest: lungs clear Abdomen: soft Jesse Dean MD Jul 05, 2016 12:50
--- NOTE | 2016-07-05 13:40 | General Progress Note ---
Assessment/Plan Status: stable Assessment/Plan Status: Acute renal failure ( Allergic vs Sepsis) / RESOLVING NOW Urine positive for Eosinophils leading to Allergic etiology IMPROVING Other: 1) Lung abscess (2) Pneumonia (3) HTN (hypertension) (4) Adverse reaction to antibiotic (5) Pleurisy (6) HCAP (healthcare-associated pneumonia) Plan: I discontinued the right jugular dialysis catheter monitor renal parameters- HD last 06/25, Cr lowering without HD Slow hydrate ok to DC from renal stand point meds reviewed Subjective ROS Limited/Unobtainable: No Allergies: Coded Allergies: PIPERACILLIN (Verified Adverse Reaction, Intermediate, 06/20/16) pt developed diffuse macular rash per ER MD notes. unclear if due to vanco or zosyn TAZOBACTAM (Verified Adverse Reaction, Intermediate, 06/20/16) pt developed diffuse macular rash per ER MD notes. unclear if due to vanco or zosyn VANCOMYCIN (Verified Adverse Reaction, Intermediate, 06/20/16) pt developed diffuse macular rash per ER MD notes. unclear if due to vanco or zosyn Objective Last 24 Hour Vital Signs Date Time Temp Pulse Resp B/P Pulse Ox O2 Delivery O2 Flow Rate FiO2 07/05/16 12:00 98.4 110 20 139/86 96 Room Air 07/05/16 08:33 89 144/92 07/05/16 08:00 99.1 112 22 110/72 96 Room Air 07/05/16 04:00 99.1 97 20 146/92 92 Room Air 07/05/16 02:13 97.5 07/05/16 00:00 100.4 117 18 144/94 93 Room Air 07/04/16 20:00 100.2 125 16 144/94 94 Room Air 07/04/16 19:30 Room Air 21 07/04/16 19:30 97 Room Air 21 07/04/16 16:00 98.6 111 18 142/95 100 Room Air Intake and Output 07/04/16 07/05/16 19:00 07:00 Intake Total 600 ml 180 ml Balance 600 ml 180 ml Intake Oral 600 ml 180 ml # Voids 3 1 Laboratory Tests 07/05/16 10:10: White Blood Count 6.2, Red Blood Count 4.06L, Hemoglobin 11.9L, Hematocrit 34.4L , Mean Corpuscular Volume 85, Mean Corpuscular Hemoglobin 29.2, Mean Corpuscular Hemoglobin Concent 34.4, Red Cell Distribution Width 11.9, Platelet Count 165, Mean Platelet Volume 7.5, Neutrophils (%) (Auto) 71.4, Lymphocytes (% ) (Auto) 8.6L, Monocytes (%) (Auto) 16.7H, Eosinophils (%) (Auto) 1.8, Basophils (%) (Auto) 1.5, Sodium Level 139, Potassium Level 4.0, Chloride Level 101, Carbon Dioxide Level 25, Anion Gap 13, Blood Urea Nitrogen 14, Creatinine 1.4H, Estimat Glomerular Filtration Rate 57.0, Glucose Level 101, Calcium Level 8.8 Height (Feet): 5 Height (Inches): 5.00 Weight (Pounds): 170 General Appearance: no apparent distress Objective PE no change MILA GARCIA Jul 05, 2016 13:40
--- NOTE | 2016-07-05 15:13 | Diagnostic Imaging Report ---
Clinical Indication: COUGH Technique: Spiral acquisitions obtained through the chest. No IV contrast utilized, per referring physician request. Multiplanar reconstructions generated. Total dose length product 913 mGycm. CTDIvol(s) 25 mGy Comparison: 06/20/2016 Findings:Previously demonstrated anterior right lung peripheral collection is again demonstrated. It is currently much smaller, now measuring likely centimeters transverse by 3.3 cm AP by 7.2 cm craniocaudad, previously 8.7 x 7 x 8.7 cm. Is currently filled with air. It appears to be less thick walled than what was demonstrated previously. There is some atelectasis or scarring in the right middle lobe posterior to the collection, and minimal atelectasis or scarring in the inferior right middle lobe, but the previously demonstrated right middle lobe consolidation has largely resolved. The upper lobe is completely clear except for a few linear opacities adjacent to the air collection. Parenchymal disease in the right lower lobe has largely cleared. The left lung demonstrates a few irregular opacities in the posterior medial costophrenic sulcus, but the extensive parenchymal disease described previously has resolved otherwise. Previously demonstrated trace right pleural fluid is no longer evident The heart size is normal. No pericardial effusion. No mediastinal or hilar mass or adenopathy demonstrated. The paratracheal lymph nodes previously demonstrated are smaller currently and the ron are now evident. The included thyroid is unremarkable. No axillary or chest wall mass or adenopathy. The included upper abdominal anatomy is remarkable for the presence of a 3 cm right adrenal myelolipoma. The bones are unremarkable. Impression: Since 06/20/2016, markedly improved anterior right thoracic collection, which is now smaller, filled only with air, and demonstrates thinner jay, presumably reflecting resolving lung abscess Previously reported parenchymal disease elsewhere within both lungs, previously extensive, has largely resolved, with only minimal residual parenchymal opacity still present Previously demonstrated trace right pleural effusion has resolved Previously demonstrated mediastinal lymphadenopathy has resolved Right adrenal myelolipoma again demonstrated The CT scanner at [facility] is accredited by the [employer] and the scans are performed using protocols designed to limit radiation exposure to as low as reasonably achievable to attain images of sufficient resolution adequate for diagnostic evaluation.
[2016-07-05 16:00] VITALS: BP 140/89
--- NOTE | 2016-07-05 16:16 | Infectious Diseases Prog Note ---
Assessment/Plan Problems: (1) Lung abscess Assessment & Plan: repeated CT scan today showed much improvement , will keep him on iv Zyvox , cefepime and flagyl for now while in hospital and switch to oral regimen once he is ready to go home . will treat him for 4 weeks , EOT 07/20. sputum culture showed normal keo so far. needs follow up with PCP after discharge. (2) HCAP (healthcare-associated pneumonia) Assessment & Plan: improving, on zyvox , flagyl and cefepime empirically, sputum and blood culture are negative so far . (3) Adverse reaction to antibiotic Assessment & Plan: unclear whether due to vancomycin VS zosyn , most likely vancomycin since it happened fast after infusion, suspect red man syndrome. avoid both classes of antibiotics for now, ok to use cephalosporins since he received it last admission with no reaction (4) Histoplasmosis pneumonia Assessment & Plan: continue itraconazole for three months total , monitor LFT (5) LISET (acute kidney injury) Assessment & Plan: resolved, had HD cath placed by renal, and had HD, HD cath was removed, avoid nephrotoxic meds. (6) Leukocytosis Assessment & Plan: was mainly due to steroids , now improving after D/C . (7) Fever Assessment & Plan: with tachycardia, due to lung abscess , improving, repeated CT chest was reassuring , continue current antibiotics therapy and monitor vitals Subjective Constitutional: Reports: anorexia, fever HEENT: Reports: no symptoms Respiratory: Reports: productive cough Breasts: Reports: no symptoms Cardiovascular: Reports: no symptoms Gastrointestinal/Abdominal: Reports: no symptoms Genitourinary: Reports: no symptoms Neurologic: Reports: no symptoms Psychiatric: Reports: no symptoms Skin: Reports: no symptoms Endocrine: Reports: no symptoms Hematologic: Reports: no symptoms Allergies: Coded Allergies: PIPERACILLIN (Verified Adverse Reaction, Intermediate, 06/20/16) pt developed diffuse macular rash per ER MD notes. unclear if due to vanco or zosyn TAZOBACTAM (Verified Adverse Reaction, Intermediate, 06/20/16) pt developed diffuse macular rash per ER MD notes. unclear if due to vanco or zosyn VANCOMYCIN (Verified Adverse Reaction, Intermediate, 06/20/16) pt developed diffuse macular rash per ER MD notes. unclear if due to vanco or zosyn Subjective he had more cough productive and spiked fever last night , and was tachycardic . today he was feeling better . Objective Vital Signs Last 24 Hour Vital Signs Date Time Temp Pulse Resp B/P Pulse Ox O2 Delivery O2 Flow Rate FiO2 07/05/16 12:00 98.4 110 20 139/86 96 Room Air 07/05/16 08:33 89 144/92 07/05/16 08:00 99.1 112 22 110/72 96 Room Air 07/05/16 04:00 99.1 97 20 146/92 92 Room Air 07/05/16 02:13 97.5 07/05/16 00:00 100.4 117 18 144/94 93 Room Air 07/04/16 20:00 100.2 125 16 144/94 94 Room Air 07/04/16 19:30 Room Air 21 07/04/16 19:30 97 Room Air 21 Height (Feet): 5 Height (Inches): 5.00 Weight (Pounds): 170 General Appearance: WD/WN, no acute distress HEENT: normocephalic, atraumatic, anicteric, mucous membranes moist Respiratory/Chest: chest wall non-tender, normal breath sounds, no respiratory distress, no accessory muscle use, decreased breath sounds, crackles/rales Cardiovascular: normal peripheral pulses, normal rate, regular rhythm, no gallop/murmur, no JVD Abdomen: normal bowel sounds, soft, non tender, no organomegaly, non distended , no mass Extremities: no cyanosis, no clubbing Skin: no rash, no lesions, no ulcers Laboratory Tests Test 07/05/16 10:10 White Blood Count 6.2 K/UL (4.8-10.8) Red Blood Count 4.06 M/UL (4.70-6.10) L Hemoglobin 11.9 G/DL (14.2-18.0) L Hematocrit 34.4 % (42.0-52.0) L Mean Corpuscular Volume 85 FL (80-99) Mean Corpuscular Hemoglobin 29.2 PG (27.0-31.0) Mean Corpuscular Hemoglobin Concent 34.4 G/DL (32.0-36.0) Red Cell Distribution Width 11.9 % (11.6-14.8) Platelet Count 165 K/UL (150-450) Mean Platelet Volume 7.5 FL (6.5-10.1) Neutrophils (%) (Auto) 71.4 % (45.0-75.0) Lymphocytes (%) (Auto) 8.6 % (20.0-45.0) L Monocytes (%) (Auto) 16.7 % (1.0-10.0) H Eosinophils (%) (Auto) 1.8 % (0.0-3.0) Basophils (%) (Auto) 1.5 % (0.0-2.0) Sodium Level 139 mEQ/L (135-145) Potassium Level 4.0 mEQ/L (3.4-4.9) Chloride Level 101 mEQ/L (98-107) Carbon Dioxide Level 25 mEQ/L (20-30) Anion Gap 13 (5-15) Blood Urea Nitrogen 14 mg/dL (7-23) Creatinine 1.4 mg/dL (0.7-1.2) H Estimat Glomerular Filtration Rate 57.0 mL/min (>60) Glucose Level 101 mg/dL (74-106) Calcium Level 8.8 mg/dL (8.6-10.2) Current Medications Medications (Trade) Dose Ordered Sig/Keila Route PRN Reason Start Time Stop Time Status Last Admin Dose Admin Acetaminophen (Tylenol) 650 mg Q4H PRN ORAL fever 06/23/16 21:00 07/23/16 20:59 07/05/16 00:55 Allopurinol (Allopurinol) 300 mg DAILY ORAL 06/29/16 09:00 07/29/16 08:59 07/05/16 08:33 Amlodipine Besylate 5 mg 5 mg DAILY ORAL 07/05/16 09:00 08/04/16 08:59 07/05/16 08:33 Cefepime HCl/ Dextrose (Maxipime/D5W) 55 ml @ 110 mls/hr Q12HR IVPB 07/05/16 21:00 07/12/16 20:59 Clonidine HCl (Catapres) 0.1 mg Q4H PRN ORAL BP over 170 syst 06/23/16 21:00 07/23/16 20:59 Heparin Sodium (Porcine) (Heparin 5000 units/ml) 5,000 units EVERY 12 HOURS SUBQ 06/23/16 21:00 07/23/16 20:59 07/04/16 22:11 Itraconazole (Sporanox) 200 mg Q12HR ORAL 06/23/16 21:00 07/07/16 20:59 07/05/16 08:39 Linezolid (Zyvox) 600 mg Q12HR ORAL 06/23/16 21:00 07/07/16 20:59 07/05/16 08:33 Magnesium Oxide (Mag-Ox 400mg) 400 mg THREE TIMES A DAY ORAL 06/29/16 13:00 07/29/16 12:59 07/05/16 12:22 Metronidazole (Flagyl) 500 mg Q8HR ORAL 06/23/16 22:00 07/07/16 21:59 07/05/16 12:22 Nitroglycerin (Ntg) 0.4 mg Q5MIN X3 PRN SL Prn Chest Pain 06/23/16 18:15 07/23/16 18:14 Ondansetron HCl (Zofran) 4 mg Q6H PRN IVP Nausea & Vomiting 06/23/16 19:00 07/23/16 18:59 Polyethylene Glycol (Miralax) 17 gm DAILYPRN PRN ORAL Constipation 06/24/16 13:00 07/24/16 12:59 Promethazine HCl/ Codeine (Phenergan with Codeine) 5 ml Q4H PRN ORAL For Cough 06/23/16 21:00 07/23/16 20:59 07/05/16 12:23 Ranitidine HCl (Zantac) 150 mg BEDTIME ORAL 06/24/16 21:00 07/24/16 20:59 07/04/16 22:10 Erin Navarrete M.D. Jul 05, 2016 16:16
[2016-07-05 20:00] VITALS: BP 144/93
[2016-07-05] MEDS: Cefepime HCl 1 GM in D5W 55 ML IVPB SCH (20:36)
--- NOTE | 2016-07-05 21:54 | General Progress Note ---
Assessment/Plan Assessment/Plan ASSESSMENT: 1. Leukocytosis - due to underlying Histoplasmosis pneumonia v steriods; resolved 2. Anemia secondary to chronic disease 3. Decreased hemoglobin and hematocrit, rule out GI bleed 4. Nausea and vomiting - now improved 5. Community-acquired pneumonia on abx 6. Eosinophilia history that is resolved 7. Acute kidney injury - on HD, monitoring per renal RECOMMENDATIONS: 1. Maintain hgb >7 2. Monitor wbc counts 3. Followup on renal, ID, pulm recs 4. Anemia w/u reviewed 5. Repeat smear has been reviewed 6. DVT ppx with heparin sq 7. Stable from hematology for discharge 8. staff Thank you, Gerry iWnston MD Subjective Constitutional: Reports: no symptoms HEENT: Reports: no symptoms Cardiovascular: Reports: no symptoms Respiratory: Reports: no symptoms Gastrointestinal/Abdominal: Reports: no symptoms Genitourinary: Reports: no symptoms Neurologic/Psychiatric: Reports: no symptoms Endocrine: Reports: no symptoms Hematologic/Lymphatic: Reports: anemia Allergies: Coded Allergies: PIPERACILLIN (Verified Adverse Reaction, Intermediate, 06/20/16) pt developed diffuse macular rash per ER MD notes. unclear if due to vanco or zosyn TAZOBACTAM (Verified Adverse Reaction, Intermediate, 06/20/16) pt developed diffuse macular rash per ER MD notes. unclear if due to vanco or zosyn VANCOMYCIN (Verified Adverse Reaction, Intermediate, 06/20/16) pt developed diffuse macular rash per ER MD notes. unclear if due to vanco or zosyn Subjective stable, feeling better, no complaints this am, no bleeding reported Objective Last 24 Hour Vital Signs Date Time Temp Pulse Resp B/P Pulse Ox O2 Delivery O2 Flow Rate FiO2 07/05/16 21:39 Room Air 21 07/05/16 20:00 98.4 95 20 144/93 96 Room Air 07/05/16 19:30 97 Room Air 21 07/05/16 18:57 98.9 07/05/16 16:00 101.2 106 20 140/89 97 Room Air 07/05/16 12:00 98.4 110 20 139/86 96 Room Air 07/05/16 08:33 89 144/92 07/05/16 08:00 99.1 112 22 110/72 96 Room Air 07/05/16 04:00 99.1 97 20 146/92 92 Room Air 07/05/16 00:00 100.4 117 18 144/94 93 Room Air Intake and Output 07/04/16 07/05/16 19:00 07:00 Intake Total 600 ml 180 ml Balance 600 ml 180 ml Intake Oral 600 ml 180 ml # Voids 3 1 Laboratory Tests 07/05/16 10:10: White Blood Count 6.2, Red Blood Count 4.06L, Hemoglobin 11.9L, Hematocrit 34.4L , Mean Corpuscular Volume 85, Mean Corpuscular Hemoglobin 29.2, Mean Corpuscular Hemoglobin Concent 34.4, Red Cell Distribution Width 11.9, Platelet Count 165, Mean Platelet Volume 7.5, Neutrophils (%) (Auto) 71.4, Lymphocytes (% ) (Auto) 8.6L, Monocytes (%) (Auto) 16.7H, Eosinophils (%) (Auto) 1.8, Basophils (%) (Auto) 1.5, Sodium Level 139, Potassium Level 4.0, Chloride Level 101, Carbon Dioxide Level 25, Anion Gap 13, Blood Urea Nitrogen 14, Creatinine 1.4H, Estimat Glomerular Filtration Rate 57.0, Glucose Level 101, Calcium Level 8.8 Height (Feet): 5 Height (Inches): 5.00 Weight (Pounds): 170 General Appearance: alert EENT: TMs normal Neck: normal inspection Cardiovascular: regular rhythm Respiratory/Chest: no accessory muscle use Abdomen: soft Extremities: non-tender Edema: 1+ Leg (L), 1+ Leg (R) Edema: mild edema Neurologic: alert Skin: warm/dry Gerry Winston Jul 05, 2016 21:54
--- NOTE | 2016-07-05 23:30 | Pulmonology Progress Note ---
Assessment/Plan Problems: (1) Lung abscess (2) Pneumonia (3) HTN (hypertension) (4) Adverse reaction to antibiotic (5) Pleurisy (6) HCAP (healthcare-associated pneumonia) Assessment/Plan wbc wnl blood cultures negative no sputum culture yet. keep on med/surg renal function continues to improve might go home with abx dc planning Subjective Respiratory: Reports: dyspnea at rest, dyspnea on exertion, pleuritic pain, productive cough, shortness of breath, sputum, wheezing Allergies: Coded Allergies: PIPERACILLIN (Verified Adverse Reaction, Intermediate, 06/20/16) pt developed diffuse macular rash per ER MD notes. unclear if due to vanco or zosyn TAZOBACTAM (Verified Adverse Reaction, Intermediate, 06/20/16) pt developed diffuse macular rash per ER MD notes. unclear if due to vanco or zosyn VANCOMYCIN (Verified Adverse Reaction, Intermediate, 06/20/16) pt developed diffuse macular rash per ER MD notes. unclear if due to vanco or zosyn Objective Last 24 Hour Vital Signs Date Time Temp Pulse Resp B/P Pulse Ox O2 Delivery O2 Flow Rate FiO2 07/05/16 21:39 Room Air 21 07/05/16 20:00 98.4 95 20 144/93 96 Room Air 07/05/16 19:30 97 Room Air 21 07/05/16 18:57 98.9 07/05/16 16:00 101.2 106 20 140/89 97 Room Air 07/05/16 12:00 98.4 110 20 139/86 96 Room Air 07/05/16 08:33 89 144/92 07/05/16 08:00 99.1 112 22 110/72 96 Room Air 07/05/16 04:00 99.1 97 20 146/92 92 Room Air 07/05/16 00:00 100.4 117 18 144/94 93 Room Air Intake and Output 07/04/16 07/05/16 19:00 07:00 Intake Total 600 ml 180 ml Balance 600 ml 180 ml Intake Oral 600 ml 180 ml # Voids 3 1 General Appearance: no acute distress HEENT: normocephalic, atraumatic, PERRL Respiratory/Chest: chest wall non-tender, decreased breath sounds, accessory muscle use, crackles/rales, rhonchi, pleural rub Cardiovascular: normal peripheral pulses, normal rate, regular rhythm, no JVD Abdomen: normal bowel sounds, soft, non tender, no organomegaly Genitourinary: normal external genitalia Skin: rash, lesions 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, no motor/sensory deficits Laboratory Tests 07/05/16 10:10: White Blood Count 6.2, Red Blood Count 4.06L, Hemoglobin 11.9L, Hematocrit 34.4L , Mean Corpuscular Volume 85, Mean Corpuscular Hemoglobin 29.2, Mean Corpuscular Hemoglobin Concent 34.4, Red Cell Distribution Width 11.9, Platelet Count 165, Mean Platelet Volume 7.5, Neutrophils (%) (Auto) 71.4, Lymphocytes (% ) (Auto) 8.6L, Monocytes (%) (Auto) 16.7H, Eosinophils (%) (Auto) 1.8, Basophils (%) (Auto) 1.5, Sodium Level 139, Potassium Level 4.0, Chloride Level 101, Carbon Dioxide Level 25, Anion Gap 13, Blood Urea Nitrogen 14, Creatinine 1.4H, Estimat Glomerular Filtration Rate 57.0, Glucose Level 101, Calcium Level 8.8 Current Medications Medications (Trade) Dose Ordered Sig/Keila Route PRN Reason Start Time Stop Time Status Last Admin Dose Admin Acetaminophen (Tylenol) 650 mg Q4H PRN ORAL fever 06/23/16 21:00 07/23/16 20:59 07/05/16 17:58 Allopurinol (Allopurinol) 300 mg DAILY ORAL 06/29/16 09:00 07/29/16 08:59 07/05/16 08:33 Amlodipine Besylate 5 mg 5 mg DAILY ORAL 07/05/16 09:00 08/04/16 08:59 07/05/16 08:33 Cefepime HCl/ Dextrose (Maxipime/D5W) 55 ml @ 110 mls/hr Q12HR IVPB 07/05/16 21:00 07/12/16 20:59 07/05/16 20:36 Clonidine HCl (Catapres) 0.1 mg Q4H PRN ORAL BP over 170 syst 06/23/16 21:00 07/23/16 20:59 Heparin Sodium (Porcine) (Heparin 5000 units/ml) 5,000 units EVERY 12 HOURS SUBQ 06/23/16 21:00 07/23/16 20:59 07/05/16 20:38 Itraconazole (Sporanox) 200 mg Q12HR ORAL 06/23/16 21:00 07/07/16 20:59 07/05/16 20:36 Linezolid (Zyvox) 600 mg Q12HR ORAL 06/23/16 21:00 07/07/16 20:59 07/05/16 20:36 Magnesium Oxide (Mag-Ox 400mg) 400 mg THREE TIMES A DAY ORAL 06/29/16 13:00 07/29/16 12:59 07/05/16 17:58 Metronidazole (Flagyl) 500 mg Q8HR ORAL 06/23/16 22:00 07/07/16 21:59 07/05/16 21:05 Nitroglycerin (Ntg) 0.4 mg Q5MIN X3 PRN SL Prn Chest Pain 06/23/16 18:15 07/23/16 18:14 Ondansetron HCl (Zofran) 4 mg Q6H PRN IVP Nausea & Vomiting 06/23/16 19:00 07/23/16 18:59 Polyethylene Glycol (Miralax) 17 gm DAILYPRN PRN ORAL Constipation 06/24/16 13:00 07/24/16 12:59 Promethazine HCl/ Codeine (Phenergan with Codeine) 5 ml Q4H PRN ORAL For Cough 06/23/16 21:00 07/23/16 20:59 07/05/16 22:11 Ranitidine HCl (Zantac) 150 mg BEDTIME ORAL 06/24/16 21:00 07/24/16 20:59 07/05/16 20:38 SAGAR CHRIS Jul 05, 2016 23:30
[2016-07-06] VITALS: BP 143/91
[2016-07-06 04:00] VITALS: BP 128/83
[2016-07-06] MEDS: metroNIDAZOLE 500mg tab ORAL SCH ×3 (06:33→21:34)
[2016-07-06 08:00] VITALS: BP 138/87
[2016-07-06] MEDS: Magnesium Oxide 400mg tab ORAL SCH ×3 (08:08→17:01)
[2016-07-06] MEDS: Heparin 5000 units/ml inj SUBQ SCH ×2 (08:09→21:00)
[2016-07-06] MEDS: Cefepime HCl 1 GM in D5W 55 ML IVPB SCH ×2 (08:13→21:39)
--- NOTE | 2016-07-06 09:27 | Diagnostic Imaging Report ---
Indication: Chest pain Technique: Two views of the chest Comparison: 06/28/2016 Findings: Interim removal of previously demonstrated temporary dialysis catheter. Lungs and pleural spaces are largely clear. However, the lateral view, a right anterior cystic space is present. This correlates with the finding in this area of an abscess seen on recent CT scan. It does not appear to be any fluid currently. The bones are unremarkable. Impression: No acute process. Findings as noted, including cystic space in the anteromedial right hemithorax, only appreciable on the lateral view
--- NOTE | 2016-07-06 11:52 | General Progress Note ---
Assessment/Plan Problem List: (1) Histoplasmosis pneumonia ICD Codes: B39.2 - Pulmonary histoplasmosis capsulati, unspecified SNOMED: 264833962 (2) Vomiting ICD Codes: R11.10 - Vomiting, unspecified SNOMED: 818265331 (3) Adverse reaction to antibiotic ICD Codes: T36.95XA - Adverse effect of unspecified systemic antibiotic, initial encounter SNOMED: 053052326, 455041081 Qualifiers: Qualified Codes: T36.95XA - Adverse effect of unspecified systemic antibiotic, initial encounter (4) Cavitary lung disease ICD Codes: J98.4 - Other disorders of lung SNOMED: 27975575 (5) Pneumonia ICD Codes: J18.9 - Pneumonia, unspecified organism SNOMED: 918165916 (6) HTN (hypertension) ICD Codes: I10 - Essential (primary) hypertension SNOMED: 13652413 Qualifiers: Qualified Codes: I10 - Essential (primary) hypertension (7) Hyperlipidemia, mixed ICD Codes: E78.2 - Mixed hyperlipidemia SNOMED: 905238217 (8) Pleurisy ICD Codes: R09.1 - Pleurisy SNOMED: 535538447 Status: progressing Assessment/Plan afebrile pna resp insuff no wheezing vitals stable Subjective ROS Limited/Unobtainable: Yes Constitutional: Reports: no symptoms Allergies: Coded Allergies: PIPERACILLIN (Verified Adverse Reaction, Intermediate, 06/20/16) pt developed diffuse macular rash per ER MD notes. unclear if due to vanco or zosyn TAZOBACTAM (Verified Adverse Reaction, Intermediate, 06/20/16) pt developed diffuse macular rash per ER MD notes. unclear if due to vanco or zosyn VANCOMYCIN (Verified Adverse Reaction, Intermediate, 06/20/16) pt developed diffuse macular rash per ER MD notes. unclear if due to vanco or zosyn Objective Last 24 Hour Vital Signs Date Time Temp Pulse Resp B/P Pulse Ox O2 Delivery O2 Flow Rate FiO2 07/06/16 08:09 87 125/81 07/06/16 08:00 98.6 96 20 138/87 96 Room Air 07/06/16 04:00 98.4 87 18 128/83 95 Room Air 07/06/16 01:41 98.4 07/06/16 00:00 100.6 98 18 143/91 95 Room Air 07/05/16 21:39 Room Air 21 07/05/16 20:00 98.4 95 20 144/93 96 Room Air 07/05/16 19:30 97 Room Air 21 07/05/16 16:00 101.2 106 20 140/89 97 Room Air 07/05/16 12:00 98.4 110 20 139/86 96 Room Air Intake and Output 07/05/16 07/06/16 19:00 07:00 Intake Total 1340 ml 480 ml Balance 1340 ml 480 ml Intake Oral 1340 ml 480 ml # Voids 2 3 # Bowel Movements 1 Height (Feet): 5 Height (Inches): 5.00 Weight (Pounds): 170 Cardiovascular: normal rate Respiratory/Chest: lungs clear Abdomen: soft Jesse Dean MD Jul 06, 2016 11:52
[2016-07-06 11:56] VITALS: BP 140/76
--- NOTE | 2016-07-06 13:37 | General Progress Note ---
Assessment/Plan Status: stable - from renal stand- Assessment/Plan Status: Acute renal failure ( Allergic vs Sepsis) / RESOLVING NOW Urine positive for Eosinophils leading to Allergic etiology IMPROVING Other: 1) Lung abscess (2) Pneumonia (3) HTN (hypertension) (4) Adverse reaction to antibiotic (5) Pleurisy (6) HCAP (healthcare-associated pneumonia) Plan: I discontinued the right jugular dialysis catheter monitor renal parameters- HD last 06/25, Cr lowering without HD Slow hydrate ok to DC from renal stand point meds reviewed Subjective ROS Limited/Unobtainable: No Allergies: Coded Allergies: PIPERACILLIN (Verified Adverse Reaction, Intermediate, 06/20/16) pt developed diffuse macular rash per ER MD notes. unclear if due to vanco or zosyn TAZOBACTAM (Verified Adverse Reaction, Intermediate, 06/20/16) pt developed diffuse macular rash per ER MD notes. unclear if due to vanco or zosyn VANCOMYCIN (Verified Adverse Reaction, Intermediate, 06/20/16) pt developed diffuse macular rash per ER MD notes. unclear if due to vanco or zosyn Objective Last 24 Hour Vital Signs Date Time Temp Pulse Resp B/P Pulse Ox O2 Delivery O2 Flow Rate FiO2 07/06/16 11:56 99.0 109 19 140/76 96 Room Air 07/06/16 08:09 87 125/81 07/06/16 08:00 98.6 96 20 138/87 96 Room Air 07/06/16 04:00 98.4 87 18 128/83 95 Room Air 07/06/16 01:41 98.4 07/06/16 00:00 100.6 98 18 143/91 95 Room Air 07/05/16 21:39 Room Air 21 07/05/16 20:00 98.4 95 20 144/93 96 Room Air 07/05/16 19:30 97 Room Air 21 07/05/16 16:00 101.2 106 20 140/89 97 Room Air Intake and Output 07/05/16 07/06/16 19:00 07:00 Intake Total 1340 ml 480 ml Balance 1340 ml 480 ml Intake Oral 1340 ml 480 ml # Voids 2 3 # Bowel Movements 1 Height (Feet): 5 Height (Inches): 5.00 Weight (Pounds): 170 General Appearance: no apparent distress Objective PE no change MILA GARCIA Jul 06, 2016 13:37
[2016-07-06 16:19] VITALS: BP 142/78
--- NOTE | 2016-07-06 16:24 | Infectious Diseases Prog Note ---
Assessment/Plan Problems: (1) Lung abscess Assessment & Plan: repeated CT scan showed much improvement in his lung infiltrates and abscess , will keep him on iv Zyvox , cefepime and flagyl for now while in hospital and switch to oral regimen once he is ready to go home . will treat him for 4 weeks , EOT 07/20/16. sputum culture showed normal keo so far. needs follow up with PCP after discharge.await repeated blood culture (2) HCAP (healthcare-associated pneumonia) Assessment & Plan: improving, on zyvox , flagyl and cefepime empirically, sputum and blood culture are negative so far . (3) Adverse reaction to antibiotic Assessment & Plan: unclear whether due to vancomycin VS zosyn , most likely vancomycin since it happened fast after infusion, suspect red man syndrome. avoid both classes of antibiotics for now, ok to use cephalosporins since he received it last admission with no reaction (4) Histoplasmosis pneumonia Assessment & Plan: continue itraconazole for three months total , monitor LFT (5) LISET (acute kidney injury) Assessment & Plan: resolved, had HD cath placed by renal, and had HD, HD cath was removed, avoid nephrotoxic meds. (6) Leukocytosis Assessment & Plan: was mainly due to steroids , now improving after D/C . (7) Fever Assessment & Plan: with tachycardia, due to lung abscess , improving, repeated CT chest was reassuring , and showed significant improvement , continue current antibiotics therapy and monitor vitals (8) Epistaxis Assessment & Plan: suspect due to dry nose, avoid nose blowing and apply local pressure . Subjective Constitutional: Reports: fatigue HEENT: Reports: other - epistaxis Respiratory: Reports: productive cough Allergies: Coded Allergies: PIPERACILLIN (Verified Adverse Reaction, Intermediate, 06/20/16) pt developed diffuse macular rash per ER MD notes. unclear if due to vanco or zosyn TAZOBACTAM (Verified Adverse Reaction, Intermediate, 06/20/16) pt developed diffuse macular rash per ER MD notes. unclear if due to vanco or zosyn VANCOMYCIN (Verified Adverse Reaction, Intermediate, 06/20/16) pt developed diffuse macular rash per ER MD notes. unclear if due to vanco or zosyn All Systems: reviewed and negative except above Subjective he had less cough productive today , and was feeling better, no fever or chills , tolerated antibiotics well Objective Vital Signs Last 24 Hour Vital Signs Date Time Temp Pulse Resp B/P Pulse Ox O2 Delivery O2 Flow Rate FiO2 07/06/16 11:56 99.0 109 19 140/76 96 Room Air 07/06/16 08:09 87 125/81 07/06/16 08:00 98.6 96 20 138/87 96 Room Air 07/06/16 04:00 98.4 87 18 128/83 95 Room Air 07/06/16 01:41 98.4 07/06/16 00:00 100.6 98 18 143/91 95 Room Air 07/05/16 21:39 Room Air 21 07/05/16 20:00 98.4 95 20 144/93 96 Room Air 07/05/16 19:30 97 Room Air 21 Height (Feet): 5 Height (Inches): 5.00 Weight (Pounds): 170 General Appearance: WD/WN, no acute distress HEENT: normocephalic, atraumatic, anicteric, mucous membranes moist Respiratory/Chest: chest wall non-tender, lungs clear, normal breath sounds, no respiratory distress, no accessory muscle use, decreased breath sounds, crackles/rales Cardiovascular: normal peripheral pulses, normal rate, regular rhythm, no gallop/murmur, no JVD Abdomen: normal bowel sounds, soft, non tender, no organomegaly, non distended , no mass, no scars Extremities: no cyanosis, no clubbing Skin: no rash, no lesions, no ulcers Current Medications Medications (Trade) Dose Ordered Sig/Keila Route PRN Reason Start Time Stop Time Status Last Admin Dose Admin Acetaminophen (Tylenol) 650 mg Q4H PRN ORAL fever 06/23/16 21:00 07/23/16 20:59 07/06/16 00:42 Allopurinol (Allopurinol) 300 mg DAILY ORAL 06/29/16 09:00 07/29/16 08:59 07/06/16 08:08 Amlodipine Besylate 5 mg 5 mg DAILY ORAL 07/05/16 09:00 08/04/16 08:59 07/06/16 08:09 Cefepime HCl/ Dextrose (Maxipime/D5W) 55 ml @ 110 mls/hr Q12HR IVPB 07/05/16 21:00 07/12/16 20:59 07/06/16 08:13 Clonidine HCl (Catapres) 0.1 mg Q4H PRN ORAL BP over 170 syst 06/23/16 21:00 07/23/16 20:59 Heparin Sodium (Porcine) (Heparin 5000 units/ml) 5,000 units EVERY 12 HOURS SUBQ 06/23/16 21:00 07/23/16 20:59 07/05/16 20:38 Itraconazole (Sporanox) 200 mg Q12HR ORAL 06/23/16 21:00 07/07/16 20:59 07/06/16 08:09 Linezolid (Zyvox) 600 mg Q12HR ORAL 06/23/16 21:00 07/07/16 20:59 07/06/16 08:09 Magnesium Oxide (Mag-Ox 400mg) 400 mg THREE TIMES A DAY ORAL 06/29/16 13:00 07/29/16 12:59 07/06/16 13:05 Metronidazole (Flagyl) 500 mg Q8HR ORAL 06/23/16 22:00 07/07/16 21:59 07/06/16 13:05 Nitroglycerin (Ntg) 0.4 mg Q5MIN X3 PRN SL Prn Chest Pain 06/23/16 18:15 07/23/16 18:14 Ondansetron HCl (Zofran) 4 mg Q6H PRN IVP Nausea & Vomiting 06/23/16 19:00 07/23/16 18:59 Polyethylene Glycol (Miralax) 17 gm DAILYPRN PRN ORAL Constipation 06/24/16 13:00 07/24/16 12:59 Promethazine HCl/ Codeine (Phenergan with Codeine) 5 ml Q4H PRN ORAL For Cough 06/23/16 21:00 07/23/16 20:59 07/05/16 22:11 Ranitidine HCl (Zantac) 150 mg BEDTIME ORAL 06/24/16 21:00 07/24/16 20:59 07/05/16 20:38 Erin Navarrete M.D. Jul 06, 2016 16:24
--- NOTE | 2016-07-06 18:57 | General Progress Note ---
Assessment/Plan Assessment/Plan ASSESSMENT: 1. Leukocytosis - due to underlying Histoplasmosis pneumonia v steriods; resolved. CT has dramatically improved on 07/05/16 2. Anemia secondary to chronic disease 3. Decreased hemoglobin and hematocrit, rule out GI bleed 4. Nausea and vomiting - now improved 5. Community-acquired pneumonia on abx 6. Eosinophilia history that is resolved 7. Acute kidney injury - on HD, monitoring per renal RECOMMENDATIONS: 1. Maintain hgb >7 2. Monitor wbc counts 3. Followup on renal, ID, pulm recs 4. Anemia w/u has been reviewed 5. Repeat smear has been reviewed 6. DVT ppx with heparin sq 7. Stable from hematology for discharge 8. staff Thank you, Gerry Winston MD Subjective Constitutional: Reports: no symptoms HEENT: Reports: no symptoms Cardiovascular: Reports: no symptoms Respiratory: Reports: no symptoms Genitourinary: Reports: no symptoms Neurologic/Psychiatric: Reports: no symptoms Endocrine: Reports: no symptoms Hematologic/Lymphatic: Reports: anemia Allergies: Coded Allergies: PIPERACILLIN (Verified Adverse Reaction, Intermediate, 06/20/16) pt developed diffuse macular rash per ER MD notes. unclear if due to vanco or zosyn TAZOBACTAM (Verified Adverse Reaction, Intermediate, 06/20/16) pt developed diffuse macular rash per ER MD notes. unclear if due to vanco or zosyn VANCOMYCIN (Verified Adverse Reaction, Intermediate, 06/20/16) pt developed diffuse macular rash per ER MD notes. unclear if due to vanco or zosyn Subjective stable, feeling better, no complaints this am, no bleeding noted Objective Last 24 Hour Vital Signs Date Time Temp Pulse Resp B/P Pulse Ox O2 Delivery O2 Flow Rate FiO2 07/06/16 16:19 98.2 99 19 142/78 94 Room Air 07/06/16 11:56 99.0 109 19 140/76 96 Room Air 07/06/16 08:09 87 125/81 07/06/16 08:00 98.6 96 20 138/87 96 Room Air 07/06/16 04:00 98.4 87 18 128/83 95 Room Air 07/06/16 01:41 98.4 07/06/16 00:00 100.6 98 18 143/91 95 Room Air 07/05/16 21:39 Room Air 21 07/05/16 20:00 98.4 95 20 144/93 96 Room Air 07/05/16 19:30 97 Room Air 21 Intake and Output 07/05/16 07/06/16 19:00 07:00 Intake Total 1340 ml 480 ml Balance 1340 ml 480 ml Intake Oral 1340 ml 480 ml # Voids 2 3 # Bowel Movements 1 Height (Feet): 5 Height (Inches): 5.00 Weight (Pounds): 170 General Appearance: alert EENT: TMs normal Neck: supple Cardiovascular: regular rhythm Respiratory/Chest: no respiratory distress Abdomen: soft Extremities: normal inspection Edema: 1+ Leg (L), 1+ Leg (R) Edema: mild edema Neurologic: alert Skin: warm/dry Gerry Winston Jul 06, 2016 18:57
[2016-07-06 20:00] VITALS: BP 142/93
[2016-07-06] MEDS: Promethazine/Codeine 5ml UD ORAL PRN (21:39)
--- NOTE | 2016-07-06 22:58 | Cardiac Electrophysiology PN ---
Assessment/Plan Assessment/Plan 1. Sinus tachycardia due to sepsis and renal failure. Better now again. 2. Hypertension. On Norvasc 5 mg daily and Prn Clonidine 3. History of histoplasmosis. 4. Shortness of breath due to healthcare-associated pneumonia. 5. Acute renal failure. Resolved. HEIDI RN Subjective Subjective Cough is getting better. at bedside. Objective Last 24 Hour Vital Signs Date Time Temp Pulse Resp B/P Pulse Ox O2 Delivery O2 Flow Rate FiO2 07/06/16 20:00 99.0 100 20 142/93 96 Room Air 07/06/16 16:19 98.2 99 19 142/78 94 Room Air 07/06/16 11:56 99.0 109 19 140/76 96 Room Air 07/06/16 08:09 87 125/81 07/06/16 08:00 98.6 96 20 138/87 96 Room Air 07/06/16 04:00 98.4 87 18 128/83 95 Room Air 07/06/16 01:41 98.4 07/06/16 00:00 100.6 98 18 143/91 95 Room Air Intake and Output 07/05/16 07/06/16 19:00 07:00 Intake Total 1340 ml 480 ml Balance 1340 ml 480 ml Intake Oral 1340 ml 480 ml # Voids 2 3 # Bowel Movements 1 Labs Test 07/05/16 10:10 White Blood Count 6.2 K/UL (4.8-10.8) Red Blood Count 4.06 M/UL (4.70-6.10) Hemoglobin 11.9 G/DL (14.2-18.0) Hematocrit 34.4 % (42.0-52.0) Mean Corpuscular Volume 85 FL (80-99) Mean Corpuscular Hemoglobin 29.2 PG (27.0-31.0) Mean Corpuscular Hemoglobin Concent 34.4 G/DL (32.0-36.0) Red Cell Distribution Width 11.9 % (11.6-14.8) Platelet Count 165 K/UL (150-450) Mean Platelet Volume 7.5 FL (6.5-10.1) Neutrophils (%) (Auto) 71.4 % (45.0-75.0) Lymphocytes (%) (Auto) 8.6 % (20.0-45.0) Monocytes (%) (Auto) 16.7 % (1.0-10.0) Eosinophils (%) (Auto) 1.8 % (0.0-3.0) Basophils (%) (Auto) 1.5 % (0.0-2.0) Sodium Level 139 mEQ/L (135-145) Potassium Level 4.0 mEQ/L (3.4-4.9) Chloride Level 101 mEQ/L (98-107) Carbon Dioxide Level 25 mEQ/L (20-30) Anion Gap 13 (5-15) Blood Urea Nitrogen 14 mg/dL (7-23) Creatinine 1.4 mg/dL (0.7-1.2) Estimat Glomerular Filtration Rate 57.0 mL/min (>60) Glucose Level 101 mg/dL (74-106) Calcium Level 8.8 mg/dL (8.6-10.2) Current Medications Medications (Trade) Dose Ordered Sig/Keila Route PRN Reason Start Time Stop Time Status Last Admin Dose Admin Acetaminophen (Tylenol) 650 mg Q4H PRN ORAL fever 06/23/16 21:00 07/23/16 20:59 07/06/16 00:42 Allopurinol (Allopurinol) 300 mg DAILY ORAL 06/29/16 09:00 07/29/16 08:59 07/06/16 08:08 Amlodipine Besylate 5 mg 5 mg DAILY ORAL 07/05/16 09:00 08/04/16 08:59 07/06/16 08:09 Cefepime HCl/ Dextrose (Maxipime/D5W) 55 ml @ 110 mls/hr Q12HR IVPB 07/05/16 21:00 07/12/16 20:59 07/06/16 21:39 Clonidine HCl (Catapres) 0.1 mg Q4H PRN ORAL BP over 170 syst 06/23/16 21:00 07/23/16 20:59 Heparin Sodium (Porcine) (Heparin 5000 units/ml) 5,000 units EVERY 12 HOURS SUBQ 06/23/16 21:00 07/23/16 20:59 07/05/16 20:38 Itraconazole (Sporanox) 200 mg Q12HR ORAL 06/23/16 21:00 07/07/16 20:59 07/06/16 21:34 Linezolid (Zyvox) 600 mg Q12HR ORAL 06/23/16 21:00 07/13/16 20:59 07/06/16 21:34 Magnesium Oxide (Mag-Ox 400mg) 400 mg THREE TIMES A DAY ORAL 06/29/16 13:00 07/29/16 12:59 07/06/16 17:01 Metronidazole (Flagyl) 500 mg Q8HR ORAL 06/23/16 22:00 07/13/16 21:59 07/06/16 21:34 Nitroglycerin (Ntg) 0.4 mg Q5MIN X3 PRN SL Prn Chest Pain 06/23/16 18:15 07/23/16 18:14 Ondansetron HCl (Zofran) 4 mg Q6H PRN IVP Nausea & Vomiting 06/23/16 19:00 07/23/16 18:59 Polyethylene Glycol (Miralax) 17 gm DAILYPRN PRN ORAL Constipation 06/24/16 13:00 07/24/16 12:59 Promethazine HCl/ Codeine (Phenergan with Codeine) 5 ml Q4H PRN ORAL For Cough 06/23/16 21:00 07/23/16 20:59 07/06/16 21:39 Ranitidine HCl (Zantac) 150 mg BEDTIME ORAL 06/24/16 21:00 07/24/16 20:59 07/06/16 21:34 Objective NECK: Shows no JVD. LUNGS: Coarse rhonchi. CARDIOVASCULAR: Shows regular S1 and S2 with no gallop or murmur. ABDOMEN: Soft. EXTREMITIES: No pitting edema. JOHN PENA Jul 06, 2016 22:58
[2016-07-07] VITALS: BP 128/83
[2016-07-07] MEDS: metroNIDAZOLE 500mg tab ORAL SCH ×3 (06:14→21:10)
[2016-07-07 08:40] VITALS: BP 141/83
[2016-07-07] MEDS: Magnesium Oxide 400mg tab ORAL SCH ×3 (09:42→17:31)
[2016-07-07] MEDS: Heparin 5000 units/ml inj SUBQ SCH ×2 (09:44→20:19)
[2016-07-07] MEDS: Cefepime HCl 1 GM in D5W 55 ML IVPB SCH ×2 (10:39→20:16)
[2016-07-07 12:03] VITALS: BP 125/65
--- NOTE | 2016-07-07 12:59 | Diagnostic Imaging Report ---
Indication: Chest Pain Comparison: None A single view chest radiograph was obtained. Findings: There is a right jugular Tomás catheter in good position. Cardiomegaly is present. Central vascularity is mildly prominent. There is no pulmonary edema demonstrated. The Impression: Tomás catheter in good position.
--- NOTE | 2016-07-07 13:32 | General Progress Note ---
Assessment/Plan Status: stable Assessment/Plan Status: Acute renal failure ( Allergic vs Sepsis) / RESOLVING NOW Urine positive for Eosinophils leading to Allergic etiology IMPROVING Other: 1) Lung abscess (2) Pneumonia (3) HTN (hypertension) (4) Adverse reaction to antibiotic (5) Pleurisy (6) HCAP (healthcare-associated pneumonia) Plan: I discontinued the right jugular dialysis catheter monitor renal parameters- HD last 06/25, Cr lowering without HD Slow hydrate ok to DC from renal stand point meds reviewed Subjective ROS Limited/Unobtainable: No Allergies: Coded Allergies: PIPERACILLIN (Verified Adverse Reaction, Intermediate, 06/20/16) pt developed diffuse macular rash per ER MD notes. unclear if due to vanco or zosyn TAZOBACTAM (Verified Adverse Reaction, Intermediate, 06/20/16) pt developed diffuse macular rash per ER MD notes. unclear if due to vanco or zosyn VANCOMYCIN (Verified Adverse Reaction, Intermediate, 06/20/16) pt developed diffuse macular rash per ER MD notes. unclear if due to vanco or zosyn Objective Last 24 Hour Vital Signs Date Time Temp Pulse Resp B/P Pulse Ox O2 Delivery O2 Flow Rate FiO2 07/07/16 12:03 97.7 84 20 125/65 95 Room Air 07/07/16 09:41 90 141/83 07/07/16 08:40 100.4 90 20 141/83 94 Room Air 07/07/16 00:00 99.1 97 16 128/83 93 Room Air 07/06/16 20:00 99.0 100 20 142/93 96 Room Air 07/06/16 16:19 98.2 99 19 142/78 94 Room Air Intake and Output 07/06/16 07/07/16 19:00 07:00 Intake Total 560 ml 480 ml Balance 560 ml 480 ml Intake Oral 560 ml 480 ml # Voids 3 4 Height (Feet): 5 Height (Inches): 5.00 Weight (Pounds): 170 General Appearance: no apparent distress Objective PE no change MILA GARCIA Jul 07, 2016 13:32
[2016-07-07] MEDS: Promethazine/Codeine 5ml UD ORAL PRN ×2 (15:59→20:26)
[2016-07-07 16:00] VITALS: BP 128/90
--- NOTE | 2016-07-07 16:47 | General Progress Note ---
Assessment/Plan Problem List: (1) Histoplasmosis pneumonia ICD Codes: B39.2 - Pulmonary histoplasmosis capsulati, unspecified SNOMED: 372845707 (2) Vomiting ICD Codes: R11.10 - Vomiting, unspecified SNOMED: 626675819 (3) Adverse reaction to antibiotic ICD Codes: T36.95XA - Adverse effect of unspecified systemic antibiotic, initial encounter SNOMED: 923848896, 230422512 Qualifiers: Qualified Codes: T36.95XA - Adverse effect of unspecified systemic antibiotic, initial encounter (4) Cavitary lung disease ICD Codes: J98.4 - Other disorders of lung SNOMED: 41396652 (5) Pneumonia ICD Codes: J18.9 - Pneumonia, unspecified organism SNOMED: 704267208 (6) HTN (hypertension) ICD Codes: I10 - Essential (primary) hypertension SNOMED: 97379043 Qualifiers: Qualified Codes: I10 - Essential (primary) hypertension (7) Hyperlipidemia, mixed ICD Codes: E78.2 - Mixed hyperlipidemia SNOMED: 473689421 (8) Pleurisy ICD Codes: R09.1 - Pleurisy SNOMED: 240469222 Status: progressing Assessment/Plan vitals stable dc if ok w pulm and id afebrile clinically improving histoplasmosis pna Subjective ROS Limited/Unobtainable: Yes Allergies: Coded Allergies: PIPERACILLIN (Verified Adverse Reaction, Intermediate, 06/20/16) pt developed diffuse macular rash per ER MD notes. unclear if due to vanco or zosyn TAZOBACTAM (Verified Adverse Reaction, Intermediate, 06/20/16) pt developed diffuse macular rash per ER MD notes. unclear if due to vanco or zosyn VANCOMYCIN (Verified Adverse Reaction, Intermediate, 06/20/16) pt developed diffuse macular rash per ER MD notes. unclear if due to vanco or zosyn Objective Last 24 Hour Vital Signs Date Time Temp Pulse Resp B/P Pulse Ox O2 Delivery O2 Flow Rate FiO2 07/07/16 16:00 97.7 98 18 128/90 94 Room Air 07/07/16 13:00 Room Air 2.0 21 07/07/16 12:03 97.7 84 20 125/65 95 Room Air 07/07/16 09:41 90 141/83 07/07/16 08:40 100.4 90 20 141/83 94 Room Air 07/07/16 00:00 99.1 97 16 128/83 93 Room Air 07/06/16 20:00 99.0 100 20 142/93 96 Room Air Intake and Output 07/06/16 07/07/16 19:00 07:00 Intake Total 560 ml 480 ml Balance 560 ml 480 ml Intake Oral 560 ml 480 ml # Voids 3 4 Height (Feet): 5 Height (Inches): 5.00 Weight (Pounds): 170 EENT: PERRL/EOMI Neck: supple Cardiovascular: normal rate Respiratory/Chest: lungs clear Abdomen: soft Jesse Dean MD Jul 07, 2016 16:47
--- NOTE | 2016-07-07 17:20 | Cardiac Electrophysiology PN ---
Assessment/Plan Assessment/Plan 1. Sinus tachycardia due to sepsis and renal failure. Better. 2. Hypertension. On Norvasc 5 mg daily and Prn Clonidine 3. History of histoplasmosis. 4. Shortness of breath due to healthcare-associated pneumonia. On iv antibiotics per ID 5. Acute renal failure. Resolved. DW RN Subjective Subjective Cough is getting better. No chest pain or SOB. Objective Last 24 Hour Vital Signs Date Time Temp Pulse Resp B/P Pulse Ox O2 Delivery O2 Flow Rate FiO2 07/07/16 16:00 97.7 98 18 128/90 94 Room Air 07/07/16 13:00 Room Air 2.0 21 07/07/16 12:03 97.7 84 20 125/65 95 Room Air 07/07/16 09:41 90 141/83 07/07/16 08:40 100.4 90 20 141/83 94 Room Air 07/07/16 00:00 99.1 97 16 128/83 93 Room Air 07/06/16 20:00 99.0 100 20 142/93 96 Room Air Intake and Output 07/06/16 07/07/16 19:00 07:00 Intake Total 560 ml 480 ml Balance 560 ml 480 ml Intake Oral 560 ml 480 ml # Voids 3 4 Microbiology Date/Time Source Procedure Growth Status 07/05/16 11:30 Blood Blood Culture - Preliminary NO GROWTH AFTER 24 HOURS Resulted 07/05/16 11:15 Blood Blood Culture - Preliminary NO GROWTH AFTER 24 HOURS Resulted Objective NECK: Shows no JVD. LUNGS: Coarse rhonchi. CARDIOVASCULAR: Regular S1 and S2 with no gallop or murmur. ABDOMEN: Soft. EXTREMITIES: No pitting edema. JOHN PENA Jul 07, 2016 17:20
--- NOTE | 2016-07-07 19:38 | Infectious Diseases Prog Note ---
Assessment/Plan Problems: (1) Lung abscess Assessment & Plan: repeated CT scan showed much improvement in his lung infiltrates and abscess while on Zyvox, cefepime and flagyl . it is highly recommended to continue zyvox as an outpatient since his sputum culture didn't show any growth to guide antibiotics choice, and he showed significant clinical improvement on zyvox , so I recommend to continue zyvox orally once he goes home with oral levaquin to finish his course of therapy for 4 weeks , EOT . he needs follow up with PCP after discharge. repeated blood culture remains negative. (2) HCAP (healthcare-associated pneumonia) Assessment & Plan: improving on repeated chest CT on zyvox , flagyl and cefepime , sputum and blood culture are negative so far . (3) Adverse reaction to antibiotic Assessment & Plan: unclear whether due to vancomycin VS zosyn , most likely vancomycin since it happened fast after infusion, suspect red man syndrome. avoid both classes of antibiotics for now, ok to use cephalosporins since he received it last admission with no reaction (4) Histoplasmosis pneumonia Assessment & Plan: continue itraconazole for three months total , monitor LFT (5) LISET (acute kidney injury) Assessment & Plan: resolved, had HD cath placed by renal, and had HD, HD cath was removed, avoid nephrotoxic meds. (6) Leukocytosis Assessment & Plan: was mainly due to steroids , now improving after D/C . (7) Fever Assessment & Plan: with tachycardia, due to lung abscess , improving, repeated CT chest was reassuring , and showed significant improvement , continue current antibiotics therapy and monitor vitals (8) Epistaxis Assessment & Plan: improved , suspect due to dry nose, avoid nose blowing and apply local pressure if recurrent . Subjective Respiratory: Reports: productive cough Allergies: Coded Allergies: PIPERACILLIN (Verified Adverse Reaction, Intermediate, 06/20/16) pt developed diffuse macular rash per ER MD notes. unclear if due to vanco or zosyn TAZOBACTAM (Verified Adverse Reaction, Intermediate, 06/20/16) pt developed diffuse macular rash per ER MD notes. unclear if due to vanco or zosyn VANCOMYCIN (Verified Adverse Reaction, Intermediate, 06/20/16) pt developed diffuse macular rash per ER MD notes. unclear if due to vanco or zosyn All Systems: reviewed and negative except above Subjective he was feeling better , still has cough , not productive , no fever or chills, tolerated antibiotics well Objective Vital Signs Last 24 Hour Vital Signs Date Time Temp Pulse Resp B/P Pulse Ox O2 Delivery O2 Flow Rate FiO2 07/07/16 18:32 Room Air 2.0 21 07/07/16 16:00 97.7 98 18 128/90 94 Room Air 07/07/16 13:00 Room Air 2.0 21 07/07/16 12:03 97.7 84 20 125/65 95 Room Air 07/07/16 09:41 90 141/83 07/07/16 08:40 100.4 90 20 141/83 94 Room Air 07/07/16 00:00 99.1 97 16 128/83 93 Room Air 07/06/16 20:00 99.0 100 20 142/93 96 Room Air Height (Feet): 5 Height (Inches): 5.00 Weight (Pounds): 170 General Appearance: WD/WN, no acute distress HEENT: normocephalic, atraumatic, anicteric, mucous membranes moist Respiratory/Chest: chest wall non-tender, normal breath sounds, no respiratory distress, no accessory muscle use Cardiovascular: normal peripheral pulses, normal rate, regular rhythm, no gallop/murmur, no JVD Abdomen: normal bowel sounds, soft, non tender, no organomegaly, non distended , no mass, no scars Extremities: no cyanosis, no clubbing Skin: no rash, no lesions, no ulcers Microbiology Date/Time Source Procedure Growth Status 07/05/16 11:30 Blood Blood Culture - Preliminary NO GROWTH AFTER 24 HOURS Resulted 07/05/16 11:15 Blood Blood Culture - Preliminary NO GROWTH AFTER 24 HOURS Resulted Current Medications Medications (Trade) Dose Ordered Sig/Keila Route PRN Reason Start Time Stop Time Status Last Admin Dose Admin Acetaminophen (Tylenol) 650 mg Q4H PRN ORAL fever 06/23/16 21:00 07/23/16 20:59 07/06/16 00:42 Allopurinol (Allopurinol) 300 mg DAILY ORAL 06/29/16 09:00 07/29/16 08:59 07/07/16 09:41 Amlodipine Besylate 5 mg 5 mg DAILY ORAL 07/05/16 09:00 08/04/16 08:59 07/07/16 09:41 Cefepime HCl/ Dextrose (Maxipime/D5W) 55 ml @ 110 mls/hr Q12HR IVPB 07/05/16 21:00 07/12/16 20:59 07/07/16 10:39 Clonidine HCl (Catapres) 0.1 mg Q4H PRN ORAL BP over 170 syst 06/23/16 21:00 07/23/16 20:59 Heparin Sodium (Porcine) (Heparin 5000 units/ml) 5,000 units EVERY 12 HOURS SUBQ 06/23/16 21:00 07/23/16 20:59 07/07/16 09:44 Itraconazole (Sporanox) 200 mg Q12HR ORAL 06/23/16 21:00 07/07/16 20:59 07/07/16 09:40 Linezolid (Zyvox) 600 mg Q12HR ORAL 06/23/16 21:00 07/13/16 20:59 07/07/16 09:40 Magnesium Oxide (Mag-Ox 400mg) 400 mg THREE TIMES A DAY ORAL 06/29/16 13:00 07/29/16 12:59 07/07/16 17:31 Metronidazole (Flagyl) 500 mg Q8HR ORAL 06/23/16 22:00 07/13/16 21:59 07/07/16 13:02 Nitroglycerin (Ntg) 0.4 mg Q5MIN X3 PRN SL Prn Chest Pain 06/23/16 18:15 07/23/16 18:14 Ondansetron HCl (Zofran) 4 mg Q6H PRN IVP Nausea & Vomiting 06/23/16 19:00 07/23/16 18:59 Polyethylene Glycol (Miralax) 17 gm DAILYPRN PRN ORAL Constipation 06/24/16 13:00 07/24/16 12:59 Promethazine HCl/ Codeine (Phenergan with Codeine) 5 ml Q4H PRN ORAL For Cough 06/23/16 21:00 07/23/16 20:59 07/07/16 15:59 Ranitidine HCl (Zantac) 150 mg BEDTIME ORAL 06/24/16 21:00 07/24/16 20:59 07/06/16 21:34 Erin Navarrete M.D. Jul 07, 2016 19:38
[2016-07-07 20:05] VITALS: BP 130/86
--- NOTE | 2016-07-07 20:55 | General Progress Note ---
Assessment/Plan Assessment/Plan ASSESSMENT: 1. Leukocytosis - due to underlying Histoplasmosis pneumonia v steriods; resolved. CT has dramatically improved on 07/05/16 2. Anemia secondary to chronic disease 3. Decreased hemoglobin and hematocrit, rule out GI bleed 4. Nausea and vomiting - now improved 5. Community-acquired pneumonia on abx 6. Eosinophilia history that is resolved 7. Acute kidney injury - on HD, monitoring per renal RECOMMENDATIONS: 1. Maintain hgb >7 2. Monitor wbc counts 3. Followup on renal, ID, pulm recs 4. Anemia w/u has been reviewed 5. Repeat smear has been reviewed 6. DVT ppx with heparin sq 7. Stable from hematology for discharge 8. staff Thank you, Gerry Winston MD Subjective Constitutional: Reports: no symptoms HEENT: Reports: mouth pain Cardiovascular: Reports: no symptoms Respiratory: Reports: no symptoms Gastrointestinal/Abdominal: Reports: poor appetite Genitourinary: Reports: no symptoms Neurologic/Psychiatric: Reports: no symptoms Endocrine: Reports: no symptoms Hematologic/Lymphatic: Reports: anemia Allergies: Coded Allergies: PIPERACILLIN (Verified Adverse Reaction, Intermediate, 06/20/16) pt developed diffuse macular rash per ER MD notes. unclear if due to vanco or zosyn TAZOBACTAM (Verified Adverse Reaction, Intermediate, 06/20/16) pt developed diffuse macular rash per ER MD notes. unclear if due to vanco or zosyn VANCOMYCIN (Verified Adverse Reaction, Intermediate, 06/20/16) pt developed diffuse macular rash per ER MD notes. unclear if due to vanco or zosyn Subjective stable, is feeling better, no complaints, no bleeding reported Objective Last 24 Hour Vital Signs Date Time Temp Pulse Resp B/P Pulse Ox O2 Delivery O2 Flow Rate FiO2 07/07/16 20:05 97.9 97 19 130/86 95 Room Air 07/07/16 18:32 Room Air 2.0 21 07/07/16 16:00 97.7 98 18 128/90 94 Room Air 07/07/16 13:00 Room Air 2.0 21 07/07/16 12:03 97.7 84 20 125/65 95 Room Air 07/07/16 09:41 90 141/83 07/07/16 08:40 100.4 90 20 141/83 94 Room Air 07/07/16 00:00 99.1 97 16 128/83 93 Room Air Intake and Output 07/06/16 07/07/16 19:00 07:00 Intake Total 560 ml 480 ml Balance 560 ml 480 ml Intake Oral 560 ml 480 ml # Voids 3 4 Height (Feet): 5 Height (Inches): 5.00 Weight (Pounds): 170 General Appearance: no apparent distress EENT: TMs normal Neck: normal alignment Cardiovascular: regular rhythm Respiratory/Chest: lungs clear Abdomen: non tender Pelvis: no masses Extremities: non-tender Edema: 1+ Leg (L), 1+ Leg (R) Edema: mild edema Neurologic: alert Skin: warm/dry Gerry Winston Jul 07, 2016 20:55
[2016-07-08] VITALS: BP 127/80
[2016-07-08 04:00] VITALS: BP 130/82
[2016-07-08] MEDS: metroNIDAZOLE 500mg tab ORAL SCH ×3 (04:54→21:23)
[2016-07-08 08:00] VITALS: BP 119/84
[2016-07-08] MEDS: Magnesium Oxide 400mg tab ORAL SCH ×3 (08:45→17:54)
[2016-07-08] MEDS: Cefepime HCl 1 GM in D5W 55 ML IVPB SCH ×2 (08:45→20:52)
[2016-07-08] MEDS: Heparin 5000 units/ml inj SUBQ SCH ×2 (08:48→20:53)
[2016-07-08 12:00] VITALS: BP 125/86
--- NOTE | 2016-07-08 12:53 | General Progress Note ---
Assessment/Plan Status: stable Assessment/Plan Status: Acute renal failure ( Allergic vs Sepsis) / RESOLVING NOW Urine positive for Eosinophils leading to Allergic etiology IMPROVING Other: 1) Lung abscess (2) Pneumonia (3) HTN (hypertension) (4) Adverse reaction to antibiotic (5) Pleurisy (6) HCAP (healthcare-associated pneumonia) Plan: I discontinued the right jugular dialysis catheter monitor renal parameters- HD last 06/25, Cr lowering without HD Slow hydrate ok to DC from renal stand point meds reviewed Subjective ROS Limited/Unobtainable: No Allergies: Coded Allergies: PIPERACILLIN (Verified Adverse Reaction, Intermediate, 06/20/16) pt developed diffuse macular rash per ER MD notes. unclear if due to vanco or zosyn TAZOBACTAM (Verified Adverse Reaction, Intermediate, 06/20/16) pt developed diffuse macular rash per ER MD notes. unclear if due to vanco or zosyn VANCOMYCIN (Verified Adverse Reaction, Intermediate, 06/20/16) pt developed diffuse macular rash per ER MD notes. unclear if due to vanco or zosyn Objective Last 24 Hour Vital Signs Date Time Temp Pulse Resp B/P Pulse Ox O2 Delivery O2 Flow Rate FiO2 07/08/16 08:44 94 119/84 07/08/16 08:00 97.7 94 20 119/84 96 Room Air 07/08/16 04:00 97.7 84 18 130/82 99 Room Air 07/08/16 00:00 97.9 84 18 127/80 95 Room Air 07/07/16 20:05 97.9 97 19 130/86 95 Room Air 07/07/16 18:32 Room Air 2.0 21 07/07/16 16:00 97.7 98 18 128/90 94 Room Air 07/07/16 13:00 Room Air 2.0 21 Intake and Output 07/07/16 07/08/16 19:00 07:00 Intake Total 720 ml 380 ml Balance 720 ml 380 ml Intake Oral 720 ml 270 ml IV Total 110 ml # Voids 3 4 Height (Feet): 5 Height (Inches): 5.00 Weight (Pounds): 170 General Appearance: no apparent distress Objective PE no change MILA GARCIA Jul 08, 2016 12:53
--- NOTE | 2016-07-08 13:25 | General Progress Note ---
Assessment/Plan Problem List: (1) Histoplasmosis pneumonia ICD Codes: B39.2 - Pulmonary histoplasmosis capsulati, unspecified SNOMED: 379435027 (2) Vomiting ICD Codes: R11.10 - Vomiting, unspecified SNOMED: 810792284 (3) Adverse reaction to antibiotic ICD Codes: T36.95XA - Adverse effect of unspecified systemic antibiotic, initial encounter SNOMED: 067262092, 465620194 Qualifiers: Qualified Codes: T36.95XA - Adverse effect of unspecified systemic antibiotic, initial encounter (4) Cavitary lung disease ICD Codes: J98.4 - Other disorders of lung SNOMED: 00189273 (5) Pneumonia ICD Codes: J18.9 - Pneumonia, unspecified organism SNOMED: 770237880 (6) HTN (hypertension) ICD Codes: I10 - Essential (primary) hypertension SNOMED: 32111484 Qualifiers: Qualified Codes: I10 - Essential (primary) hypertension (7) Hyperlipidemia, mixed ICD Codes: E78.2 - Mixed hyperlipidemia SNOMED: 823957570 (8) Pleurisy ICD Codes: R09.1 - Pleurisy SNOMED: 343991983 Status: progressing Assessment/Plan afebrile vitals stable no wheezing pna improving reviewed chart and labs histoplasmosis pna Subjective ROS Limited/Unobtainable: Yes Allergies: Coded Allergies: PIPERACILLIN (Verified Adverse Reaction, Intermediate, 06/20/16) pt developed diffuse macular rash per ER MD notes. unclear if due to vanco or zosyn TAZOBACTAM (Verified Adverse Reaction, Intermediate, 06/20/16) pt developed diffuse macular rash per ER MD notes. unclear if due to vanco or zosyn VANCOMYCIN (Verified Adverse Reaction, Intermediate, 06/20/16) pt developed diffuse macular rash per ER MD notes. unclear if due to vanco or zosyn Objective Last 24 Hour Vital Signs Date Time Temp Pulse Resp B/P Pulse Ox O2 Delivery O2 Flow Rate FiO2 07/08/16 12:00 97.9 70 20 125/86 98 Room Air 07/08/16 08:44 94 119/84 07/08/16 08:00 97.7 94 20 119/84 96 Room Air 07/08/16 04:00 97.7 84 18 130/82 99 Room Air 07/08/16 00:00 97.9 84 18 127/80 95 Room Air 07/07/16 20:05 97.9 97 19 130/86 95 Room Air 07/07/16 18:32 Room Air 2.0 21 07/07/16 16:00 97.7 98 18 128/90 94 Room Air Intake and Output 07/07/16 07/08/16 19:00 07:00 Intake Total 720 ml 380 ml Balance 720 ml 380 ml Intake Oral 720 ml 270 ml IV Total 110 ml # Voids 3 4 Height (Feet): 5 Height (Inches): 5.00 Weight (Pounds): 170 Cardiovascular: normal rate Respiratory/Chest: lungs clear Jesse Dean MD Jul 08, 2016 13:25
--- NOTE | 2016-07-08 15:25 | General Progress Note ---
Assessment/Plan Assessment/Plan ASSESSMENT: 1. Leukocytosis - due to underlying Histoplasmosis pneumonia v steriods; resolved. CT has dramatically improved on 07/05/16 2. Anemia secondary to chronic disease 3. Decreased hemoglobin and hematocrit, rule out GI bleed 4. Nausea and vomiting - now improved 5. Community-acquired pneumonia on abx 6. Eosinophilia history that is resolved 7. Acute kidney injury - on HD, monitoring per renal RECOMMENDATIONS: 1. Maintain hgb >7 2. Monitor wbc counts 3. Followup on renal, ID, pulm recs 4. Anemia w/u has been reviewed 5. Repeat smear reviewed 6. DVT ppx with heparin sq 7. Stable from hematology for discharge 8. staff Thank you, Gerry Winston MD Subjective Constitutional: Reports: no symptoms HEENT: Reports: mouth pain Cardiovascular: Reports: no symptoms Respiratory: Reports: no symptoms Gastrointestinal/Abdominal: Reports: no symptoms Genitourinary: Reports: no symptoms Neurologic/Psychiatric: Reports: no symptoms Endocrine: Reports: no symptoms Hematologic/Lymphatic: Reports: anemia Allergies: Coded Allergies: PIPERACILLIN (Verified Adverse Reaction, Intermediate, 06/20/16) pt developed diffuse macular rash per ER MD notes. unclear if due to vanco or zosyn TAZOBACTAM (Verified Adverse Reaction, Intermediate, 06/20/16) pt developed diffuse macular rash per ER MD notes. unclear if due to vanco or zosyn VANCOMYCIN (Verified Adverse Reaction, Intermediate, 06/20/16) pt developed diffuse macular rash per ER MD notes. unclear if due to vanco or zosyn Subjective stable, is feeling better, no complaints, no bleeding Objective Last 24 Hour Vital Signs Date Time Temp Pulse Resp B/P Pulse Ox O2 Delivery O2 Flow Rate FiO2 07/08/16 12:00 97.9 70 20 125/86 98 Room Air 07/08/16 08:44 94 119/84 07/08/16 08:00 97.7 94 20 119/84 96 Room Air 07/08/16 04:00 97.7 84 18 130/82 99 Room Air 07/08/16 00:00 97.9 84 18 127/80 95 Room Air 07/07/16 20:05 97.9 97 19 130/86 95 Room Air 07/07/16 18:32 Room Air 2.0 21 07/07/16 16:00 97.7 98 18 128/90 94 Room Air Intake and Output 07/07/16 07/08/16 19:00 07:00 Intake Total 720 ml 380 ml Balance 720 ml 380 ml Intake Oral 720 ml 270 ml IV Total 110 ml # Voids 3 4 Height (Feet): 5 Height (Inches): 5.00 Weight (Pounds): 170 General Appearance: no apparent distress EENT: TMs normal Neck: supple Cardiovascular: regular rhythm Respiratory/Chest: lungs clear Genitourinary/Rectal: heme negative stool Extremities: normal inspection Edema: 1+ Leg (L), 1+ Leg (R) Edema: mild edema Neurologic: alert Skin: normal pigmentation Gerry Winston Jul 08, 2016 15:25
--- NOTE | 2016-07-08 15:48 | Pulmonology Progress Note ---
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 Thoracic surgery Not amenable to percutaneous catheter drainage. New multifocal parenchymal airspace opacities suspicious for disseminated pneumonia CXR 06/23- suspected infiltrate versus atelectasis at the right lung base. sputum cx, blood cx, influenza screen - all negative abx and Itraconazole ID follows repeated CT chest 07/05 - markedly improved anterior right thoracic collection, which is now smaller, filled only with air, and demonstrates thinner jay, presumably reflecting resolving lung abscess antitussive prn renal US negative, no hydro nephro follows urine + eosinophils, nephro favoring allergic cause of ARF over infectious s/p steroids x 5 days ( per nephro) off HD as per nephro, last HD 06/25 slow hydration HD catheter dc monitor renal parameters , lytes DVT, GI prophylaxis abx per ID till 07/20 - when dc oral Levaquin as per ID recommendations case discussed and evaluated by supervising physician Subjective Allergies: Coded Allergies: PIPERACILLIN (Verified Adverse Reaction, Intermediate, 06/20/16) pt developed diffuse macular rash per ER MD notes. unclear if due to vanco or zosyn TAZOBACTAM (Verified Adverse Reaction, Intermediate, 06/20/16) pt developed diffuse macular rash per ER MD notes. unclear if due to vanco or zosyn VANCOMYCIN (Verified Adverse Reaction, Intermediate, 06/20/16) pt developed diffuse macular rash per ER MD notes. unclear if due to vanco or zosyn Subjective on [facility] floor reports feeling better no respiratory distress on O2 via NV, sat stable; denies SOB, occasional dry cough, no hemoptysis, no wheezing, afebrile, leukocytosis resolved creat down to 1,4 Objective Last 24 Hour Vital Signs Date Time Temp Pulse Resp B/P Pulse Ox O2 Delivery O2 Flow Rate FiO2 07/08/16 12:00 97.9 70 20 125/86 98 Room Air 07/08/16 08:44 94 119/84 07/08/16 08:00 97.7 94 20 119/84 96 Room Air 07/08/16 04:00 97.7 84 18 130/82 99 Room Air 07/08/16 00:00 97.9 84 18 127/80 95 Room Air 07/07/16 20:05 97.9 97 19 130/86 95 Room Air 07/07/16 18:32 Room Air 2.0 21 07/07/16 16:00 97.7 98 18 128/90 94 Room Air Intake and Output 07/07/16 07/08/16 19:00 07:00 Intake Total 720 ml 380 ml Balance 720 ml 380 ml Intake Oral 720 ml 270 ml IV Total 110 ml # Voids 3 4 Objective General Appearance: WD/WN, no acute distress HEENT: normocephalic, atraumatic, anicteric, mucous membranes moist, O2 via NC Respiratory/Chest: lungs clear , no respiratory distress, no accessory muscle use, Cardiovascular: normal rate, regular rhythm Abdomen: soft, non tender, non distended Genitourinary: normal external genitalia Extremities: no edema Neurologic/Psychiatric: no motor/sensory deficits, alert, oriented x 3, responsive Musculoskeletal: normal muscle bulk Current Medications Medications (Trade) Dose Ordered Sig/Keila Route PRN Reason Start Time Stop Time Status Last Admin Dose Admin Acetaminophen (Tylenol) 650 mg Q4H PRN ORAL fever 06/23/16 21:00 07/23/16 20:59 07/06/16 00:42 Allopurinol (Allopurinol) 300 mg DAILY ORAL 06/29/16 09:00 07/29/16 08:59 07/08/16 08:44 Amlodipine Besylate 5 mg 5 mg DAILY ORAL 07/05/16 09:00 08/04/16 08:59 07/08/16 08:44 Cefepime HCl/ Dextrose (Maxipime/D5W) 55 ml @ 110 mls/hr Q12HR IVPB 07/05/16 21:00 07/12/16 20:59 07/08/16 08:45 Clonidine HCl (Catapres) 0.1 mg Q4H PRN ORAL BP over 170 syst 06/23/16 21:00 07/23/16 20:59 Heparin Sodium (Porcine) (Heparin 5000 units/ml) 5,000 units EVERY 12 HOURS SUBQ 06/23/16 21:00 07/23/16 20:59 07/08/16 08:48 Linezolid (Zyvox) 600 mg Q12HR ORAL 06/23/16 21:00 07/13/16 20:59 07/08/16 08:44 Magnesium Oxide (Mag-Ox 400mg) 400 mg THREE TIMES A DAY ORAL 06/29/16 13:00 07/29/16 12:59 07/08/16 13:25 Metronidazole (Flagyl) 500 mg Q8HR ORAL 06/23/16 22:00 07/13/16 21:59 07/08/16 13:25 Nitroglycerin (Ntg) 0.4 mg Q5MIN X3 PRN SL Prn Chest Pain 06/23/16 18:15 07/23/16 18:14 Ondansetron HCl (Zofran) 4 mg Q6H PRN IVP Nausea & Vomiting 06/23/16 19:00 07/23/16 18:59 Polyethylene Glycol (Miralax) 17 gm DAILYPRN PRN ORAL Constipation 06/24/16 13:00 07/24/16 12:59 Promethazine HCl/ Codeine (Phenergan with Codeine) 5 ml Q4H PRN ORAL For Cough 06/23/16 21:00 07/23/16 20:59 07/07/16 20:26 Ranitidine HCl (Zantac) 150 mg BEDTIME ORAL 06/24/16 21:00 07/24/16 20:59 07/07/16 20:16 Garth LopezWmchealthYanci Berger NP Jul 08, 2016 15:48
[2016-07-08 16:00] VITALS: BP 131/78
--- NOTE | 2016-07-08 17:11 | Infectious Diseases Prog Note ---
Assessment/Plan Problems: (1) Lung abscess Assessment & Plan: repeated CT scan showed much improvement in his lung infiltrates and abscess while on Zyvox, cefepime and flagyl . it is highly recommended to continue zyvox as an outpatient since his sputum culture didn't show any growth to guide antibiotics choice, and he showed significant clinical improvement on zyvox , so I recommend to continue zyvox orally once he goes home with oral levaquin to finish his course of therapy for 4 weeks , EOT . he needs follow up with PCP after discharge. repeated blood culture remains negative. (2) HCAP (healthcare-associated pneumonia) Assessment & Plan: improving on repeated chest CT on zyvox , flagyl and cefepime , sputum and blood culture are negative so far . (3) Adverse reaction to antibiotic Assessment & Plan: unclear whether due to vancomycin VS zosyn , most likely vancomycin since it happened fast after infusion, suspect red man syndrome. avoid both classes of antibiotics for now, ok to use cephalosporins since he received it last admission with no reaction (4) Histoplasmosis pneumonia Assessment & Plan: continue itraconazole for three months total , monitor LFT (5) LISET (acute kidney injury) Assessment & Plan: resolved, had HD cath placed by renal, and had HD, HD cath was removed, avoid nephrotoxic meds. (6) Leukocytosis Assessment & Plan: was mainly due to steroids , now improving after D/C . (7) Fever Assessment & Plan: resolved, due to lung abscess , repeated CT chest was reassuring , and showed significant improvement , continue current antibiotics therapy and monitor vitals (8) Epistaxis Assessment & Plan: improved , suspect due to dry nose, avoid nose blowing and apply local pressure if recurrent . Subjective Respiratory: Reports: productive cough Allergies: Coded Allergies: PIPERACILLIN (Verified Adverse Reaction, Intermediate, 06/20/16) pt developed diffuse macular rash per ER MD notes. unclear if due to vanco or zosyn TAZOBACTAM (Verified Adverse Reaction, Intermediate, 06/20/16) pt developed diffuse macular rash per ER MD notes. unclear if due to vanco or zosyn VANCOMYCIN (Verified Adverse Reaction, Intermediate, 06/20/16) pt developed diffuse macular rash per ER MD notes. unclear if due to vanco or zosyn All Systems: reviewed and negative except above Subjective he was feeling better , still has cough , not productive , no fever or chills, tolerated antibiotics well Objective Vital Signs Last 24 Hour Vital Signs Date Time Temp Pulse Resp B/P Pulse Ox O2 Delivery O2 Flow Rate FiO2 07/08/16 16:00 98.1 89 20 131/78 96 Room Air 07/08/16 12:00 97.9 70 20 125/86 98 Room Air 07/08/16 08:44 94 119/84 07/08/16 08:00 97.7 94 20 119/84 96 Room Air 07/08/16 04:00 97.7 84 18 130/82 99 Room Air 07/08/16 00:00 97.9 84 18 127/80 95 Room Air 07/07/16 20:05 97.9 97 19 130/86 95 Room Air 07/07/16 18:32 Room Air 2.0 21 Height (Feet): 5 Height (Inches): 5.00 Weight (Pounds): 170 General Appearance: WD/WN, no acute distress HEENT: normocephalic, atraumatic, anicteric, mucous membranes moist, PERRL Respiratory/Chest: chest wall non-tender, normal breath sounds, no respiratory distress, no accessory muscle use Cardiovascular: normal peripheral pulses, normal rate, regular rhythm, no gallop/murmur Abdomen: normal bowel sounds, soft, non tender, no organomegaly, non distended , no mass, no scars Extremities: no cyanosis, no clubbing Skin: no rash, no lesions, no ulcers Current Medications Medications (Trade) Dose Ordered Sig/Keila Route PRN Reason Start Time Stop Time Status Last Admin Dose Admin Acetaminophen (Tylenol) 650 mg Q4H PRN ORAL fever 06/23/16 21:00 07/23/16 20:59 07/06/16 00:42 Allopurinol (Allopurinol) 300 mg DAILY ORAL 06/29/16 09:00 07/29/16 08:59 07/08/16 08:44 Amlodipine Besylate 5 mg 5 mg DAILY ORAL 07/05/16 09:00 08/04/16 08:59 07/08/16 08:44 Cefepime HCl/ Dextrose (Maxipime/D5W) 55 ml @ 110 mls/hr Q12HR IVPB 07/05/16 21:00 07/12/16 20:59 07/08/16 08:45 Clonidine HCl (Catapres) 0.1 mg Q4H PRN ORAL BP over 170 syst 06/23/16 21:00 07/23/16 20:59 Heparin Sodium (Porcine) (Heparin 5000 units/ml) 5,000 units EVERY 12 HOURS SUBQ 06/23/16 21:00 07/23/16 20:59 07/08/16 08:48 Linezolid (Zyvox) 600 mg Q12HR ORAL 06/23/16 21:00 07/13/16 20:59 07/08/16 08:44 Magnesium Oxide (Mag-Ox 400mg) 400 mg THREE TIMES A DAY ORAL 06/29/16 13:00 07/29/16 12:59 07/08/16 13:25 Metronidazole (Flagyl) 500 mg Q8HR ORAL 06/23/16 22:00 07/13/16 21:59 07/08/16 13:25 Nitroglycerin (Ntg) 0.4 mg Q5MIN X3 PRN SL Prn Chest Pain 06/23/16 18:15 07/23/16 18:14 Ondansetron HCl (Zofran) 4 mg Q6H PRN IVP Nausea & Vomiting 06/23/16 19:00 07/23/16 18:59 Polyethylene Glycol (Miralax) 17 gm DAILYPRN PRN ORAL Constipation 06/24/16 13:00 07/24/16 12:59 Promethazine HCl/ Codeine (Phenergan with Codeine) 5 ml Q4H PRN ORAL For Cough 06/23/16 21:00 07/23/16 20:59 07/07/16 20:26 Ranitidine HCl (Zantac) 150 mg BEDTIME ORAL 06/24/16 21:00 07/24/16 20:59 07/07/16 20:16 Erin Navarrete M.D. Jul 08, 2016 17:11
--- NOTE | 2016-07-08 18:44 | Cardiac Electrophysiology PN ---
Assessment/Plan Assessment/Plan 1. Sinus tachycardia due to sepsis and renal failure. Better. 2. Hypertension. On Norvasc 5 mg daily 3. History of histoplasmosis. 4. Shortness of breath due to healthcare-associated pneumonia. On Cefepime, Flagyl and Zyvox per ID 5. Acute renal failure. Resolved. HEIDI RN Subjective Subjective No chest pain or SOB but still coughing. Objective Last 24 Hour Vital Signs Date Time Temp Pulse Resp B/P Pulse Ox O2 Delivery O2 Flow Rate FiO2 07/08/16 16:00 98.1 89 20 131/78 96 Room Air 07/08/16 12:00 97.9 70 20 125/86 98 Room Air 07/08/16 08:44 94 119/84 07/08/16 08:00 97.7 94 20 119/84 96 Room Air 07/08/16 04:00 97.7 84 18 130/82 99 Room Air 07/08/16 00:00 97.9 84 18 127/80 95 Room Air 07/07/16 20:05 97.9 97 19 130/86 95 Room Air Intake and Output 07/07/16 07/08/16 19:00 07:00 Intake Total 720 ml 380 ml Balance 720 ml 380 ml Intake Oral 720 ml 270 ml IV Total 110 ml # Voids 3 4 Current Medications Medications (Trade) Dose Ordered Sig/Keila Route PRN Reason Start Time Stop Time Status Last Admin Dose Admin Acetaminophen (Tylenol) 650 mg Q4H PRN ORAL fever 06/23/16 21:00 07/23/16 20:59 07/06/16 00:42 Allopurinol (Allopurinol) 300 mg DAILY ORAL 06/29/16 09:00 07/29/16 08:59 07/08/16 08:44 Amlodipine Besylate 5 mg 5 mg DAILY ORAL 07/05/16 09:00 08/04/16 08:59 07/08/16 08:44 Cefepime HCl/ Dextrose (Maxipime/D5W) 55 ml @ 110 mls/hr Q12HR IVPB 07/05/16 21:00 07/12/16 20:59 07/08/16 08:45 Clonidine HCl (Catapres) 0.1 mg Q4H PRN ORAL BP over 170 syst 06/23/16 21:00 07/23/16 20:59 Heparin Sodium (Porcine) (Heparin 5000 units/ml) 5,000 units EVERY 12 HOURS SUBQ 06/23/16 21:00 07/23/16 20:59 07/08/16 08:48 Linezolid (Zyvox) 600 mg Q12HR ORAL 06/23/16 21:00 07/13/16 20:59 07/08/16 08:44 Magnesium Oxide (Mag-Ox 400mg) 400 mg THREE TIMES A DAY ORAL 06/29/16 13:00 07/29/16 12:59 07/08/16 17:54 Metronidazole (Flagyl) 500 mg Q8HR ORAL 06/23/16 22:00 07/13/16 21:59 07/08/16 13:25 Nitroglycerin (Ntg) 0.4 mg Q5MIN X3 PRN SL Prn Chest Pain 06/23/16 18:15 07/23/16 18:14 Ondansetron HCl (Zofran) 4 mg Q6H PRN IVP Nausea & Vomiting 06/23/16 19:00 07/23/16 18:59 Polyethylene Glycol (Miralax) 17 gm DAILYPRN PRN ORAL Constipation 06/24/16 13:00 07/24/16 12:59 Promethazine HCl/ Codeine (Phenergan with Codeine) 5 ml Q4H PRN ORAL For Cough 06/23/16 21:00 07/23/16 20:59 07/07/16 20:26 Ranitidine HCl (Zantac) 150 mg BEDTIME ORAL 06/24/16 21:00 07/24/16 20:59 07/07/16 20:16 Objective NECK: Shows no JVD. LUNGS: Coarse rhonchi. CARDIOVASCULAR: Regular S1 and S2 with no gallop or murmur. ABDOMEN: Soft. EXTREMITIES: No pitting edema. JOHN PENA Jul 08, 2016 18:44
[2016-07-08 20:00] VITALS: BP 127/77
[2016-07-09] VITALS: BP 119/78
[2016-07-09 04:00] VITALS: BP 129/91
[2016-07-09] MEDS: metroNIDAZOLE 500mg tab ORAL SCH ×3 (05:10→22:12)
[2016-07-09 08:00] VITALS: BP 118/82
[2016-07-09] MEDS: Heparin 5000 units/ml inj SUBQ SCH ×2 (08:45→20:20)
[2016-07-09] MEDS: Magnesium Oxide 400mg tab ORAL SCH ×3 (08:45→18:34)
[2016-07-09] MEDS: Cefepime HCl 1 GM in D5W 55 ML IVPB SCH ×2 (08:45→20:13)
--- NOTE | 2016-07-09 10:07 | General Progress Note ---
Assessment/Plan Assessment/Plan Status: Acute renal failure ( Allergic vs Sepsis) / RESOLVING NOW Urine positive for Eosinophils leading to Allergic etiology IMPROVING Other: 1) Lung abscess (2) Pneumonia (3) HTN (hypertension) (4) Adverse reaction to antibiotic (5) Pleurisy (6) HCAP (healthcare-associated pneumonia) Plan: I discontinued the right jugular dialysis catheter monitor renal parameters- HD last 06/25, Cr lowering without HD Slow hydrate ok to DC from renal stand point meds reviewed Subjective ROS Limited/Unobtainable: No Allergies: Coded Allergies: PIPERACILLIN (Verified Adverse Reaction, Intermediate, 06/20/16) pt developed diffuse macular rash per ER MD notes. unclear if due to vanco or zosyn TAZOBACTAM (Verified Adverse Reaction, Intermediate, 06/20/16) pt developed diffuse macular rash per ER MD notes. unclear if due to vanco or zosyn VANCOMYCIN (Verified Adverse Reaction, Intermediate, 06/20/16) pt developed diffuse macular rash per ER MD notes. unclear if due to vanco or zosyn Objective Last 24 Hour Vital Signs Date Time Temp Pulse Resp B/P Pulse Ox O2 Delivery O2 Flow Rate FiO2 07/09/16 08:45 94 135/91 07/09/16 08:00 97.5 85 20 118/82 95 Room Air 07/09/16 04:00 97.5 92 19 129/91 95 Room Air 07/09/16 00:00 97.9 84 20 119/78 94 Room Air 07/08/16 20:00 97.9 82 20 127/77 96 Room Air 07/08/16 16:00 98.1 89 20 131/78 96 Room Air 07/08/16 12:00 97.9 70 20 125/86 98 Room Air Intake and Output 07/08/16 07/09/16 19:00 07:00 Intake Total 295 ml 360 ml Balance 295 ml 360 ml Intake Oral 240 ml 360 ml IV Total 55 ml # Voids 1 3 Height (Feet): 5 Height (Inches): 5.00 Weight (Pounds): 170 General Appearance: no apparent distress Objective PE no change MILA GARCIA Jul 09, 2016 10:07
[2016-07-09] MEDS ORDERED: DuoNeb 0.5-3(2.5)mg/3ml neb HHN PRN (10:45)
--- NOTE | 2016-07-09 10:45 | Pulmonology Progress Note ---
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 Thoracic surgery Not amenable to percutaneous catheter drainage. New multifocal parenchymal airspace opacities suspicious for disseminated pneumonia CXR 06/23- suspected infiltrate versus atelectasis at the right lung base. sputum cx, blood cx, influenza screen - all negative abx and Itraconazole ID follows repeated CT chest 07/05 - markedly improved anterior right thoracic collection, which is now smaller, filled only with air, and demonstrates thinner jay, presumably reflecting resolving lung abscess antitussive prn renal US negative, no hydro nephro follows urine + eosinophils, nephro favoring allergic cause of ARF over infectious s/p steroids x 5 days ( per nephro) off HD as per nephro, last HD 06/25 slow hydration HD catheter dc monitor renal parameters , lytes DVT, GI prophylaxis abx per ID till 07/20 - upon dc - oral Levaquin as per ID recommendations dc plan as per PMD discretion with abx case discussed and evaluated by supervising physician Subjective Allergies: Coded Allergies: PIPERACILLIN (Verified Adverse Reaction, Intermediate, 06/20/16) pt developed diffuse macular rash per ER MD notes. unclear if due to vanco or zosyn TAZOBACTAM (Verified Adverse Reaction, Intermediate, 06/20/16) pt developed diffuse macular rash per ER MD notes. unclear if due to vanco or zosyn VANCOMYCIN (Verified Adverse Reaction, Intermediate, 06/20/16) pt developed diffuse macular rash per ER MD notes. unclear if due to vanco or zosyn Subjective on [facility] floor feeling better no respiratory distress on RA pulse ox stable denies SOB, occasional dry cough, no hemoptysis, no wheezing, afebrile, leukocytosis resolved creat down to 1,4 Objective Last 24 Hour Vital Signs Date Time Temp Pulse Resp B/P Pulse Ox O2 Delivery O2 Flow Rate FiO2 07/09/16 08:45 94 135/91 07/09/16 08:00 97.5 85 20 118/82 95 Room Air 07/09/16 04:00 97.5 92 19 129/91 95 Room Air 07/09/16 00:00 97.9 84 20 119/78 94 Room Air 07/08/16 20:00 97.9 82 20 127/77 96 Room Air 07/08/16 16:00 98.1 89 20 131/78 96 Room Air 07/08/16 12:00 97.9 70 20 125/86 98 Room Air Intake and Output 07/08/16 07/09/16 19:00 07:00 Intake Total 295 ml 360 ml Balance 295 ml 360 ml Intake Oral 240 ml 360 ml IV Total 55 ml # Voids 1 3 Objective General Appearance: WD/WN, no acute distress HEENT: normocephalic, atraumatic, anicteric, mucous membranes moist, O2 via NC Respiratory/Chest: lungs clear , no respiratory distress, no accessory muscle use, Cardiovascular: normal rate, regular rhythm Abdomen: soft, non tender, non distended Genitourinary: normal external genitalia Extremities: no edema Neurologic/Psychiatric: no motor/sensory deficits, alert, oriented x 3, responsive Musculoskeletal: normal muscle bulk Current Medications Medications (Trade) Dose Ordered Sig/Keila Route PRN Reason Start Time Stop Time Status Last Admin Dose Admin Acetaminophen (Tylenol) 650 mg Q4H PRN ORAL fever 06/23/16 21:00 07/23/16 20:59 07/06/16 00:42 Allopurinol (Allopurinol) 300 mg DAILY ORAL 06/29/16 09:00 07/29/16 08:59 07/09/16 08:44 Amlodipine Besylate 5 mg 5 mg DAILY ORAL 07/05/16 09:00 08/04/16 08:59 07/09/16 08:45 Cefepime HCl/ Dextrose (Maxipime/D5W) 55 ml @ 110 mls/hr Q12HR IVPB 07/05/16 21:00 07/12/16 20:59 07/09/16 08:45 Clonidine HCl (Catapres) 0.1 mg Q4H PRN ORAL BP over 170 syst 06/23/16 21:00 07/23/16 20:59 Heparin Sodium (Porcine) (Heparin 5000 units/ml) 5,000 units EVERY 12 HOURS SUBQ 06/23/16 21:00 07/23/16 20:59 07/08/16 20:53 Linezolid (Zyvox) 600 mg Q12HR ORAL 06/23/16 21:00 07/13/16 20:59 07/09/16 08:45 Magnesium Oxide (Mag-Ox 400mg) 400 mg THREE TIMES A DAY ORAL 06/29/16 13:00 07/29/16 12:59 07/09/16 08:45 Metronidazole (Flagyl) 500 mg Q8HR ORAL 06/23/16 22:00 07/13/16 21:59 07/09/16 05:10 Nitroglycerin (Ntg) 0.4 mg Q5MIN X3 PRN SL Prn Chest Pain 06/23/16 18:15 07/23/16 18:14 Ondansetron HCl (Zofran) 4 mg Q6H PRN IVP Nausea & Vomiting 06/23/16 19:00 07/23/16 18:59 Polyethylene Glycol (Miralax) 17 gm DAILYPRN PRN ORAL Constipation 06/24/16 13:00 07/24/16 12:59 Promethazine HCl/ Codeine (Phenergan with Codeine) 5 ml Q4H PRN ORAL For Cough 06/23/16 21:00 07/23/16 20:59 07/07/16 20:26 Ranitidine HCl (Zantac) 150 mg BEDTIME ORAL 06/24/16 21:00 07/24/16 20:59 07/08/16 20:52 Garth LopezUpstate Golisano Children'S HospitalYanci Berger NP Jul 09, 2016 10:45
--- NOTE | 2016-07-09 11:40 | General Progress Note ---
Assessment/Plan Problem List: (1) Histoplasmosis pneumonia ICD Codes: B39.2 - Pulmonary histoplasmosis capsulati, unspecified SNOMED: 976564803 (2) Vomiting ICD Codes: R11.10 - Vomiting, unspecified SNOMED: 629690392 (3) Adverse reaction to antibiotic ICD Codes: T36.95XA - Adverse effect of unspecified systemic antibiotic, initial encounter SNOMED: 246225274, 755789509 Qualifiers: Qualified Codes: T36.95XA - Adverse effect of unspecified systemic antibiotic, initial encounter (4) Cavitary lung disease ICD Codes: J98.4 - Other disorders of lung SNOMED: 97005906 (5) Pneumonia ICD Codes: J18.9 - Pneumonia, unspecified organism SNOMED: 935096017 (6) HTN (hypertension) ICD Codes: I10 - Essential (primary) hypertension SNOMED: 75037334 Qualifiers: Qualified Codes: I10 - Essential (primary) hypertension (7) Hyperlipidemia, mixed ICD Codes: E78.2 - Mixed hyperlipidemia SNOMED: 050849320 (8) Pleurisy ICD Codes: R09.1 - Pleurisy SNOMED: 556723127 Status: progressing Assessment/Plan pna is improving resp insuff no wheezing afebrile vitals stable Subjective ROS Limited/Unobtainable: Yes Constitutional: Reports: no symptoms Allergies: Coded Allergies: PIPERACILLIN (Verified Adverse Reaction, Intermediate, 06/20/16) pt developed diffuse macular rash per ER MD notes. unclear if due to vanco or zosyn TAZOBACTAM (Verified Adverse Reaction, Intermediate, 06/20/16) pt developed diffuse macular rash per ER MD notes. unclear if due to vanco or zosyn VANCOMYCIN (Verified Adverse Reaction, Intermediate, 06/20/16) pt developed diffuse macular rash per ER MD notes. unclear if due to vanco or zosyn Objective Last 24 Hour Vital Signs Date Time Temp Pulse Resp B/P Pulse Ox O2 Delivery O2 Flow Rate FiO2 07/09/16 08:45 94 135/91 07/09/16 08:00 97.5 85 20 118/82 95 Room Air 07/09/16 04:00 97.5 92 19 129/91 95 Room Air 07/09/16 00:00 97.9 84 20 119/78 94 Room Air 07/08/16 20:00 97.9 82 20 127/77 96 Room Air 07/08/16 16:00 98.1 89 20 131/78 96 Room Air 07/08/16 12:00 97.9 70 20 125/86 98 Room Air Intake and Output 07/08/16 07/09/16 19:00 07:00 Intake Total 295 ml 360 ml Balance 295 ml 360 ml Intake Oral 240 ml 360 ml IV Total 55 ml # Voids 1 3 Height (Feet): 5 Height (Inches): 5.00 Weight (Pounds): 170 EENT: PERRL/EOMI Neck: supple Cardiovascular: normal rate Respiratory/Chest: lungs clear Jesse Dean MD Jul 09, 2016 11:40
[2016-07-09 12:15] VITALS: BP 117/84
--- NOTE | 2016-07-09 14:54 | Cardiac Electrophysiology PN ---
Assessment/Plan Assessment/Plan 1. Sinus tachycardia due to sepsis and renal failure. Better with iv abx. 2. Hypertension. On Norvasc 5 mg daily 3. History of histoplasmosis. 4. Healthcare-associated pneumonia. On Cefepime, Flagyl and Zyvox per ID 5. Acute renal failure. Resolved. DW RN and Subjective Subjective No chest pain or SOB. On Abx. at bedside. Objective Last 24 Hour Vital Signs Date Time Temp Pulse Resp B/P Pulse Ox O2 Delivery O2 Flow Rate FiO2 07/09/16 12:15 97.5 84 20 117/84 98 Room Air 07/09/16 08:45 94 135/91 07/09/16 08:00 97.5 85 20 118/82 95 Room Air 07/09/16 04:00 97.5 92 19 129/91 95 Room Air 07/09/16 00:00 97.9 84 20 119/78 94 Room Air 07/08/16 20:00 97.9 82 20 127/77 96 Room Air 07/08/16 16:00 98.1 89 20 131/78 96 Room Air Intake and Output 07/08/16 07/09/16 19:00 07:00 Intake Total 295 ml 360 ml Balance 295 ml 360 ml Intake Oral 240 ml 360 ml IV Total 55 ml # Voids 1 3 Current Medications Medications (Trade) Dose Ordered Sig/Keila Route PRN Reason Start Time Stop Time Status Last Admin Dose Admin Acetaminophen (Tylenol) 650 mg Q4H PRN ORAL fever 06/23/16 21:00 07/23/16 20:59 07/06/16 00:42 Albuterol/ Ipratropium (DuoNeb 0.5-3(2.5)mg/3ml) 3 ml Q4H PRN HHN sob 07/09/16 10:45 07/14/16 10:44 Allopurinol (Allopurinol) 300 mg DAILY ORAL 06/29/16 09:00 07/29/16 08:59 07/09/16 08:44 Amlodipine Besylate 5 mg 5 mg DAILY ORAL 07/05/16 09:00 08/04/16 08:59 07/09/16 08:45 Cefepime HCl/ Dextrose (Maxipime/D5W) 55 ml @ 110 mls/hr Q12HR IVPB 07/05/16 21:00 07/12/16 20:59 07/09/16 08:45 Clonidine HCl (Catapres) 0.1 mg Q4H PRN ORAL BP over 170 syst 06/23/16 21:00 07/23/16 20:59 Heparin Sodium (Porcine) (Heparin 5000 units/ml) 5,000 units EVERY 12 HOURS SUBQ 06/23/16 21:00 07/23/16 20:59 07/08/16 20:53 Linezolid (Zyvox) 600 mg Q12HR ORAL 06/23/16 21:00 07/13/16 20:59 07/09/16 08:45 Magnesium Oxide (Mag-Ox 400mg) 400 mg THREE TIMES A DAY ORAL 06/29/16 13:00 07/29/16 12:59 07/09/16 12:32 Metronidazole (Flagyl) 500 mg Q8HR ORAL 06/23/16 22:00 07/13/16 21:59 07/09/16 12:32 Nitroglycerin (Ntg) 0.4 mg Q5MIN X3 PRN SL Prn Chest Pain 06/23/16 18:15 07/23/16 18:14 Ondansetron HCl (Zofran) 4 mg Q6H PRN IVP Nausea & Vomiting 06/23/16 19:00 07/23/16 18:59 Polyethylene Glycol (Miralax) 17 gm DAILYPRN PRN ORAL Constipation 06/24/16 13:00 07/24/16 12:59 Promethazine HCl/ Codeine (Phenergan with Codeine) 5 ml Q4H PRN ORAL For Cough 06/23/16 21:00 07/23/16 20:59 07/07/16 20:26 Ranitidine HCl (Zantac) 150 mg BEDTIME ORAL 06/24/16 21:00 07/24/16 20:59 07/08/16 20:52 Objective NECK: Shows no JVD. LUNGS: Coarse rhonchi. CARDIOVASCULAR: Regular S1 and S2 with no gallop or murmur. ABDOMEN: Soft. EXTREMITIES: No pitting edema. JOHN PENA Jul 09, 2016 14:54
--- NOTE | 2016-07-09 15:47 | Infectious Diseases Prog Note ---
Assessment/Plan Problems: (1) Lung abscess Assessment & Plan: repeated CT scan showed much improvement in his lung infiltrates and abscess while on Zyvox, cefepime and flagyl . it is highly recommended to continue zyvox as an outpatient since his sputum culture didn't show any growth to guide antibiotics choice, and he showed significant clinical improvement on zyvox , so I recommend to continue zyvox orally once he goes home with oral levaquin to finish his course of therapy for 4 weeks , EOT . he needs follow up with PCP after discharge. repeated blood culture remains negative. (2) HCAP (healthcare-associated pneumonia) Assessment & Plan: improving on repeated chest CT on zyvox , flagyl and cefepime , sputum and blood culture are negative so far . (3) Adverse reaction to antibiotic Assessment & Plan: unclear whether due to vancomycin VS zosyn , most likely vancomycin since it happened fast after infusion, suspect red man syndrome. avoid both classes of antibiotics for now, ok to use cephalosporins since he received it last admission with no reaction (4) Histoplasmosis pneumonia Assessment & Plan: continue itraconazole for three months total , monitor LFT (5) LISET (acute kidney injury) Assessment & Plan: resolved, had HD cath placed by renal, and had HD, HD cath was removed, avoid nephrotoxic meds. (6) Leukocytosis Assessment & Plan: was mainly due to steroids , now improving after D/C . (7) Fever Assessment & Plan: resolved, due to lung abscess , repeated CT chest was reassuring , and showed significant improvement , continue current antibiotics therapy and monitor vitals (8) Epistaxis Assessment & Plan: improved , suspect due to dry nose, avoid nose blowing and apply local pressure if recurrent . Subjective Constitutional: Denies: anorexia, chills, drenching sweats, fatigue, fever, no symptoms, other HEENT: Denies: congestion, coryza, dysphagia, hearing change, no symptoms, other, visual change Respiratory: Denies: dry cough, no symptoms, other, productive cough, shortness of breath Breasts: Denies: discharge, no symptoms, other, swelling, tenderness Cardiovascular: Denies: chest pain, dyspnea on exertion, no symptoms, other, palpitations Gastrointestinal/Abdominal: Denies: bloating, blood in stool, constipation, diarrhea, nausea, no symptoms, other, vomiting Genitourinary: Denies: dysuria, frequency, hematuria, no symptoms, nocturia, other Neurologic: Denies: confusion, headache, no symptoms, numbness, other, weakness Psychiatric: Denies: anxiety, depression, no symptoms, other Skin: Denies: no symptoms, other, rash, ulcer Endocrine: Denies: feels cold, feels warm, no symptoms, other Hematologic: Denies: bleeding, no symptoms, other, swollen lymph nodes Allergies: Coded Allergies: PIPERACILLIN (Verified Adverse Reaction, Intermediate, 06/20/16) pt developed diffuse macular rash per ER MD notes. unclear if due to vanco or zosyn TAZOBACTAM (Verified Adverse Reaction, Intermediate, 06/20/16) pt developed diffuse macular rash per ER MD notes. unclear if due to vanco or zosyn VANCOMYCIN (Verified Adverse Reaction, Intermediate, 06/20/16) pt developed diffuse macular rash per ER MD notes. unclear if due to vanco or zosyn Subjective he was doing well , no fever or chills, tolerated antibiotics well Objective Vital Signs Last 24 Hour Vital Signs Date Time Temp Pulse Resp B/P Pulse Ox O2 Delivery O2 Flow Rate FiO2 07/09/16 12:15 97.5 84 20 117/84 98 Room Air 07/09/16 08:45 94 135/91 07/09/16 08:00 97.5 85 20 118/82 95 Room Air 07/09/16 04:00 97.5 92 19 129/91 95 Room Air 07/09/16 00:00 97.9 84 20 119/78 94 Room Air 07/08/16 20:00 97.9 82 20 127/77 96 Room Air 07/08/16 16:00 98.1 89 20 131/78 96 Room Air Height (Feet): 5 Height (Inches): 5.00 Weight (Pounds): 170 General Appearance: WD/WN, no acute distress HEENT: normocephalic, atraumatic, PERRL Respiratory/Chest: chest wall non-tender, lungs clear, normal breath sounds, no respiratory distress, no accessory muscle use Cardiovascular: normal peripheral pulses, normal rate, regular rhythm, no gallop/murmur Abdomen: normal bowel sounds, soft, non tender, no organomegaly, non distended , no mass, no scars Extremities: no cyanosis, no clubbing Current Medications Medications (Trade) Dose Ordered Sig/Keila Route PRN Reason Start Time Stop Time Status Last Admin Dose Admin Acetaminophen (Tylenol) 650 mg Q4H PRN ORAL fever 06/23/16 21:00 07/23/16 20:59 07/06/16 00:42 Albuterol/ Ipratropium (DuoNeb 0.5-3(2.5)mg/3ml) 3 ml Q4H PRN HHN sob 07/09/16 10:45 07/14/16 10:44 Allopurinol (Allopurinol) 300 mg DAILY ORAL 06/29/16 09:00 07/29/16 08:59 07/09/16 08:44 Amlodipine Besylate 5 mg 5 mg DAILY ORAL 07/05/16 09:00 08/04/16 08:59 07/09/16 08:45 Cefepime HCl/ Dextrose (Maxipime/D5W) 55 ml @ 110 mls/hr Q12HR IVPB 07/05/16 21:00 07/12/16 20:59 07/09/16 08:45 Clonidine HCl (Catapres) 0.1 mg Q4H PRN ORAL BP over 170 syst 06/23/16 21:00 07/23/16 20:59 Heparin Sodium (Porcine) (Heparin 5000 units/ml) 5,000 units EVERY 12 HOURS SUBQ 06/23/16 21:00 07/23/16 20:59 07/08/16 20:53 Linezolid (Zyvox) 600 mg Q12HR ORAL 06/23/16 21:00 07/13/16 20:59 07/09/16 08:45 Magnesium Oxide (Mag-Ox 400mg) 400 mg THREE TIMES A DAY ORAL 06/29/16 13:00 07/29/16 12:59 07/09/16 12:32 Metronidazole (Flagyl) 500 mg Q8HR ORAL 06/23/16 22:00 07/13/16 21:59 07/09/16 12:32 Nitroglycerin (Ntg) 0.4 mg Q5MIN X3 PRN SL Prn Chest Pain 06/23/16 18:15 07/23/16 18:14 Ondansetron HCl (Zofran) 4 mg Q6H PRN IVP Nausea & Vomiting 06/23/16 19:00 07/23/16 18:59 Polyethylene Glycol (Miralax) 17 gm DAILYPRN PRN ORAL Constipation 06/24/16 13:00 07/24/16 12:59 Promethazine HCl/ Codeine (Phenergan with Codeine) 5 ml Q4H PRN ORAL For Cough 06/23/16 21:00 07/23/16 20:59 07/07/16 20:26 Ranitidine HCl (Zantac) 150 mg BEDTIME ORAL 06/24/16 21:00 07/24/16 20:59 07/08/16 20:52 Erin Navarrete M.D. Jul 09, 2016 15:47
[2016-07-09 16:00] VITALS: BP 121/77
[2016-07-09] MEDS ORDERED: Tubing IV Secondary IV ONE (17:32)
[2016-07-09] MEDS ORDERED: NS 275ml ONE (17:32)
[2016-07-09 20:00] VITALS: BP 126/83
--- NOTE | 2016-07-09 20:01 | General Progress Note ---
Assessment/Plan Assessment/Plan ASSESSMENT: 1. Leukocytosis - due to underlying Histoplasmosis pneumonia, improved 2. Anemia secondary to chronic disease 3. Decreased hemoglobin and hematocrit, rule out GI bleed 4. Nausea and vomiting - now improved 5. Community-acquired pneumonia on abx 6. Eosinophilia history that is resolved 7. Acute kidney injury - on HD, monitoring per renal RECOMMENDATIONS: 1. Monitor counts and maintain hgb >7 2. Monitor wbc counts 3. Followup on renal, ID, pulm recs 4. Anemia w/u reviewed 5. Repeat smear has been reviewed 6. DVT ppx with heparin sq 7. Stable from hematology for discharge 8. staff Thank you, Brigid Winston MD Subjective Constitutional: Reports: no symptoms HEENT: Reports: no symptoms Cardiovascular: Reports: no symptoms Respiratory: Reports: no symptoms Gastrointestinal/Abdominal: Reports: no symptoms Genitourinary: Reports: no symptoms Neurologic/Psychiatric: Reports: no symptoms Endocrine: Reports: no symptoms Hematologic/Lymphatic: Reports: no symptoms Allergies: Coded Allergies: PIPERACILLIN (Verified Adverse Reaction, Intermediate, 06/20/16) pt developed diffuse macular rash per ER MD notes. unclear if due to vanco or zosyn TAZOBACTAM (Verified Adverse Reaction, Intermediate, 06/20/16) pt developed diffuse macular rash per ER MD notes. unclear if due to vanco or zosyn VANCOMYCIN (Verified Adverse Reaction, Intermediate, 06/20/16) pt developed diffuse macular rash per ER MD notes. unclear if due to vanco or zosyn Subjective stable, no bleeding reported, no fevers or chills reported Objective Last 24 Hour Vital Signs Date Time Temp Pulse Resp B/P Pulse Ox O2 Delivery O2 Flow Rate FiO2 07/09/16 19:53 76 18 Room Air 21 07/09/16 16:00 98.1 70 18 121/77 Room Air 99.0 07/09/16 12:15 97.5 84 20 117/84 98 Room Air 07/09/16 08:45 94 135/91 07/09/16 08:00 97.5 85 20 118/82 95 Room Air 07/09/16 04:00 97.5 92 19 129/91 95 Room Air 07/09/16 00:00 97.9 84 20 119/78 94 Room Air 07/08/16 20:00 97.9 82 20 127/77 96 Room Air Intake and Output 07/08/16 07/09/16 19:00 07:00 Intake Total 295 ml 360 ml Balance 295 ml 360 ml Intake Oral 240 ml 360 ml IV Total 55 ml # Voids 1 3 Height (Feet): 5 Height (Inches): 5.00 Weight (Pounds): 170 General Appearance: no apparent distress EENT: TMs normal Neck: supple Cardiovascular: normal rate Respiratory/Chest: lungs clear Abdomen: soft Pelvis: no masses Extremities: non-tender Edema: no edema noted Arm (L), no edema noted Arm (R), no edema noted Leg (L), no edema noted Leg (R), no edema noted Pedal (L), no edema noted Pedal (R), no edema noted Generalized Neurologic: abnormal gait, alert Skin: warm/dry Lymphatic: normal anterior cervical (L), normal anterior cervical (R), normal axillary (L), normal axillary (R), normal inguinal (L), normal inguinal (R), normal other, normal posterior cervical (L), normal posterior cervical (R), normal submandibular (L), normal submandibular (R), normal supraclavicular (L), normal supraclavicular (R) BRIGID WINSTON Jul 09, 2016 20:01
[2016-07-09] MEDS: Promethazine/Codeine 5ml UD ORAL PRN (20:16)
[2016-07-10 00:45] VITALS: BP 123/70
[2016-07-10 04:00] VITALS: BP 135/77
[2016-07-10] MEDS: metroNIDAZOLE 500mg tab ORAL SCH ×3 (05:04→21:40)
[2016-07-10 07:21] LABS: BASOPHILS % (AUTO) 1.2 % (0.0-2.0); LYMPHOCYTES % (AUTO) 39.2 % (20.0-45.0); MEAN CORPUSCULAR HEMOGLOBIN 28.7 PG (27.0-31.0); MEAN CORPUSCULAR HGB CONC 34.2 G/DL (32.0-36.0); MEAN CORPUSCULAR VOLUME 84 FL (80-99); MEAN PLATELET VOLUME 9.2 FL (6.5-10.1); MONOCYTES % (AUTO) 12.4 % (1.0-10.0); NEUTROPHILS % (AUTO) 41.2 % (45.0-75.0); PLATELET COUNT 128 K/UL (150-450); RED BLOOD COUNT 4.21 M/UL (4.70-6.10); WHITE BLOOD COUNT 3.6 K/UL (4.8-10.8)
[2016-07-10 07:55] VITALS: BP 120/84
[2016-07-10 08:09] LABS: ANION GAP 16 (5-15); CALCIUM 8.6 mg/dL (8.6-10.2); CARBON DIOXIDE 25 mEQ/L (20-30); CHLORIDE 97 mEQ/L (98-107); CREATININE 1.1 mg/dL (0.7-1.2); GLOMERULAR FILTRATION RATE > 60 mL/min (>60); HEMOLYSIS 4; POTASSIUM 4.1 mEQ/L (3.4-4.9); SODIUM 138 mEQ/L (135-145)
[2016-07-10] MEDS: Cefepime HCl 1 GM in D5W 55 ML IVPB SCH ×2 (08:31→21:40)
[2016-07-10] MEDS: Heparin 5000 units/ml inj SUBQ SCH ×2 (08:31→20:38)
[2016-07-10] MEDS: Magnesium Oxide 400mg tab ORAL SCH ×3 (08:31→18:47)
--- NOTE | 2016-07-10 09:12 | Pulmonology Progress Note ---
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 Thoracic surgery Not amenable to percutaneous catheter drainage. New multifocal parenchymal airspace opacities suspicious for disseminated pneumonia CXR 06/23- suspected infiltrate versus atelectasis at the right lung base. sputum cx, blood cx, influenza screen - all negative abx ( home on oral levaquin and Zyvox x 1 more month) and Itraconazole ( initially started on 06/06, need total of 3 months) ID follows repeated CT chest 07/05 - markedly improved anterior right thoracic collection, which is now smaller, filled only with air, and demonstrates thinner jay, presumably reflecting resolving lung abscess antitussive prn renal US negative, no hydro nephro follows urine + eosinophils, nephro favoring allergic cause of ARF over infectious s/p steroids x 5 days ( per nephro) off HD as per nephro, last HD 06/25 slow hydration HD catheter dc monitor renal parameters , lytes creat down to 1.1 today DVT, GI prophylaxis abx per ID till 07/20 - upon dc - oral Levaquin as per ID recommendations dc plan as per PMD discretion with po abx per ID recommendations stable pulmonary status case discussed and evaluated by supervising physician Subjective Allergies: Coded Allergies: PIPERACILLIN (Verified Adverse Reaction, Intermediate, 06/20/16) pt developed diffuse macular rash per ER MD notes. unclear if due to vanco or zosyn TAZOBACTAM (Verified Adverse Reaction, Intermediate, 06/20/16) pt developed diffuse macular rash per ER MD notes. unclear if due to vanco or zosyn VANCOMYCIN (Verified Adverse Reaction, Intermediate, 06/20/16) pt developed diffuse macular rash per ER MD notes. unclear if due to vanco or zosyn Subjective on [facility] floor feeling better no respiratory distress on RA pulse ox stable denies SOB, occasional dry cough, no hemoptysis, no wheezing, afebrile, leukocytosis resolved creat down to 1.1 Objective Last 24 Hour Vital Signs Date Time Temp Pulse Resp B/P Pulse Ox O2 Delivery O2 Flow Rate FiO2 2/5/17 08:31 75 120/84 07/10/16 07:55 97.7 75 20 120/84 96 Room Air 07/10/16 04:00 97.9 85 19 135/77 97 Room Air 07/10/16 00:45 97.9 87 20 123/70 97 Room Air 07/09/16 20:00 99.1 82 17 126/83 99 Room Air 07/09/16 19:53 76 18 Room Air 21 07/09/16 16:00 98.1 70 18 121/77 Room Air 99.0 07/09/16 12:15 97.5 84 20 117/84 98 Room Air Intake and Output 07/09/16 07/10/16 19:00 07:00 Intake Total 1200 ml 295 ml Balance 1200 ml 295 ml Intake Oral 1200 ml 240 ml IV Total 55 ml # Voids 4 3 # Bowel Movements 1 Objective General Appearance: WD/WN, no acute distress HEENT: normocephalic, atraumatic, anicteric, mucous membranes moist, O2 via NC Respiratory/Chest: lungs clear , no respiratory distress, no accessory muscle use, Cardiovascular: normal rate, regular rhythm Abdomen: soft, non tender, non distended Genitourinary: normal external genitalia Extremities: no edema Neurologic/Psychiatric: no motor/sensory deficits, alert, oriented x 3, responsive Musculoskeletal: normal muscle bulk Laboratory Tests 07/10/16 06:15: White Blood Count 3.6L, Red Blood Count 4.21L, Hemoglobin 12.1L, Hematocrit 35.3L, Mean Corpuscular Volume 84, Mean Corpuscular Hemoglobin 28.7, Mean Corpuscular Hemoglobin Concent 34.2, Red Cell Distribution Width 12.0, Platelet Count 128L, Mean Platelet Volume 9.2, Neutrophils (%) (Auto) 41.2L, Lymphocytes (%) (Auto) 39.2, Monocytes (%) (Auto) 12.4H, Eosinophils (%) (Auto) 6.0H, Basophils (%) (Auto) 1.2, Sodium Level 138, Potassium Level 4.1, Chloride Level 97L, Carbon Dioxide Level 25, Anion Gap 16H, Blood Urea Nitrogen 11, Creatinine 1.1, Estimat Glomerular Filtration Rate > 60, Glucose Level 98, Calcium Level 8.6 Current Medications Medications (Trade) Dose Ordered Sig/Keila Route PRN Reason Start Time Stop Time Status Last Admin Dose Admin Acetaminophen (Tylenol) 650 mg Q4H PRN ORAL fever 06/23/16 21:00 07/23/16 20:59 07/06/16 00:42 Albuterol/ Ipratropium (DuoNeb 0.5-3(2.5)mg/3ml) 3 ml Q4H PRN HHN sob 07/09/16 10:45 07/14/16 10:44 Allopurinol (Allopurinol) 300 mg DAILY ORAL 06/29/16 09:00 07/29/16 08:59 07/10/16 08:31 Amlodipine Besylate 5 mg 5 mg DAILY ORAL 07/05/16 09:00 08/04/16 08:59 07/10/16 08:31 Cefepime HCl/ Dextrose (Maxipime/D5W) 55 ml @ 110 mls/hr Q12HR IVPB 07/05/16 21:00 07/12/16 20:59 07/10/16 08:31 Clonidine HCl (Catapres) 0.1 mg Q4H PRN ORAL BP over 170 syst 06/23/16 21:00 07/23/16 20:59 Heparin Sodium (Porcine) (Heparin 5000 units/ml) 5,000 units EVERY 12 HOURS SUBQ 06/23/16 21:00 07/23/16 20:59 07/08/16 20:53 Linezolid (Zyvox) 600 mg Q12HR ORAL 06/23/16 21:00 07/13/16 20:59 07/10/16 08:31 Magnesium Oxide (Mag-Ox 400mg) 400 mg THREE TIMES A DAY ORAL 06/29/16 13:00 07/29/16 12:59 07/10/16 08:31 Metronidazole (Flagyl) 500 mg Q8HR ORAL 06/23/16 22:00 07/13/16 21:59 07/10/16 05:04 Nitroglycerin (Ntg) 0.4 mg Q5MIN X3 PRN SL Prn Chest Pain 06/23/16 18:15 07/23/16 18:14 Ondansetron HCl (Zofran) 4 mg Q6H PRN IVP Nausea & Vomiting 06/23/16 19:00 07/23/16 18:59 Polyethylene Glycol (Miralax) 17 gm DAILYPRN PRN ORAL Constipation 06/24/16 13:00 07/24/16 12:59 Promethazine HCl/ Codeine (Phenergan with Codeine) 5 ml Q4H PRN ORAL For Cough 06/23/16 21:00 07/23/16 20:59 07/09/16 20:16 Ranitidine HCl (Zantac) 150 mg BEDTIME ORAL 06/24/16 21:00 07/24/16 20:59 07/09/16 20:10 Garth ([facility])Yanci NP Jul 10, 2016 09:12
--- NOTE | 2016-07-10 11:01 | General Progress Note ---
Assessment/Plan Status: stable Assessment/Plan Status: Acute renal failure ( Allergic vs Sepsis) / RESOLVING NOW Urine positive for Eosinophils leading to Allergic etiology IMPROVING Other: 1) Lung abscess (2) Pneumonia (3) HTN (hypertension) (4) Adverse reaction to antibiotic (5) Pleurisy (6) HCAP (healthcare-associated pneumonia) Plan: I discontinued the right jugular dialysis catheter monitor renal parameters- HD last 06/25, Cr lowering without HD Slow hydrate ok to DC from renal stand point meds reviewed Subjective ROS Limited/Unobtainable: No Allergies: Coded Allergies: PIPERACILLIN (Verified Adverse Reaction, Intermediate, 06/20/16) pt developed diffuse macular rash per ER MD notes. unclear if due to vanco or zosyn TAZOBACTAM (Verified Adverse Reaction, Intermediate, 06/20/16) pt developed diffuse macular rash per ER MD notes. unclear if due to vanco or zosyn VANCOMYCIN (Verified Adverse Reaction, Intermediate, 06/20/16) pt developed diffuse macular rash per ER MD notes. unclear if due to vanco or zosyn Objective Last 24 Hour Vital Signs Date Time Temp Pulse Resp B/P Pulse Ox O2 Delivery O2 Flow Rate FiO2 07/10/16 08:57 91 18 Room Air 21 07/10/16 08:31 75 120/84 07/10/16 07:55 97.7 75 20 120/84 96 Room Air 07/10/16 04:00 97.9 85 19 135/77 97 Room Air 07/10/16 00:45 97.9 87 20 123/70 97 Room Air 07/09/16 20:00 99.1 82 17 126/83 99 Room Air 07/09/16 19:53 76 18 Room Air 21 07/09/16 16:00 98.1 70 18 121/77 Room Air 99.0 07/09/16 12:15 97.5 84 20 117/84 98 Room Air Intake and Output 07/09/16 07/10/16 19:00 07:00 Intake Total 1200 ml 295 ml Balance 1200 ml 295 ml Intake Oral 1200 ml 240 ml IV Total 55 ml # Voids 4 3 # Bowel Movements 1 Laboratory Tests 07/10/16 06:15: White Blood Count 3.6L, Red Blood Count 4.21L, Hemoglobin 12.1L, Hematocrit 35.3L, Mean Corpuscular Volume 84, Mean Corpuscular Hemoglobin 28.7, Mean Corpuscular Hemoglobin Concent 34.2, Red Cell Distribution Width 12.0, Platelet Count 128L, Mean Platelet Volume 9.2, Neutrophils (%) (Auto) 41.2L, Lymphocytes (%) (Auto) 39.2, Monocytes (%) (Auto) 12.4H, Eosinophils (%) (Auto) 6.0H, Basophils (%) (Auto) 1.2, Sodium Level 138, Potassium Level 4.1, Chloride Level 97L, Carbon Dioxide Level 25, Anion Gap 16H, Blood Urea Nitrogen 11, Creatinine 1.1, Estimat Glomerular Filtration Rate > 60, Glucose Level 98, Calcium Level 8.6 Height (Feet): 5 Height (Inches): 5.00 Weight (Pounds): 170 General Appearance: no apparent distress Objective PE no change MILA GARCIA Jul 10, 2016 11:01
[2016-07-10 12:04] VITALS: BP 118/78
--- NOTE | 2016-07-10 12:47 | General Progress Note ---
Assessment/Plan Problem List: (1) Histoplasmosis pneumonia ICD Codes: B39.2 - Pulmonary histoplasmosis capsulati, unspecified SNOMED: 574537858 (2) Vomiting ICD Codes: R11.10 - Vomiting, unspecified SNOMED: 418873452 (3) Adverse reaction to antibiotic ICD Codes: T36.95XA - Adverse effect of unspecified systemic antibiotic, initial encounter SNOMED: 526079878, 442853265 Qualifiers: Qualified Codes: T36.95XA - Adverse effect of unspecified systemic antibiotic, initial encounter (4) Cavitary lung disease ICD Codes: J98.4 - Other disorders of lung SNOMED: 10923701 (5) Pneumonia ICD Codes: J18.9 - Pneumonia, unspecified organism SNOMED: 984641806 (6) HTN (hypertension) ICD Codes: I10 - Essential (primary) hypertension SNOMED: 64945438 Qualifiers: Qualified Codes: I10 - Essential (primary) hypertension (7) Hyperlipidemia, mixed ICD Codes: E78.2 - Mixed hyperlipidemia SNOMED: 392754308 (8) Pleurisy ICD Codes: R09.1 - Pleurisy SNOMED: 015539971 Status: progressing Assessment/Plan afebrile vitals stable pna improving needs clearance from pulmonary and id before dc Subjective ROS Limited/Unobtainable: Yes Constitutional: Reports: no symptoms Allergies: Coded Allergies: PIPERACILLIN (Verified Adverse Reaction, Intermediate, 06/20/16) pt developed diffuse macular rash per ER MD notes. unclear if due to vanco or zosyn TAZOBACTAM (Verified Adverse Reaction, Intermediate, 06/20/16) pt developed diffuse macular rash per ER MD notes. unclear if due to vanco or zosyn VANCOMYCIN (Verified Adverse Reaction, Intermediate, 06/20/16) pt developed diffuse macular rash per ER MD notes. unclear if due to vanco or zosyn Objective Last 24 Hour Vital Signs Date Time Temp Pulse Resp B/P Pulse Ox O2 Delivery O2 Flow Rate FiO2 07/10/16 12:04 98.6 80 20 118/78 99 Room Air 07/10/16 08:57 91 18 Room Air 21 07/10/16 08:31 75 120/84 07/10/16 07:55 97.7 75 20 120/84 96 Room Air 07/10/16 04:00 97.9 85 19 135/77 97 Room Air 07/10/16 00:45 97.9 87 20 123/70 97 Room Air 07/09/16 20:00 99.1 82 17 126/83 99 Room Air 07/09/16 19:53 76 18 Room Air 21 07/09/16 16:00 98.1 70 18 121/77 Room Air 99.0 Intake and Output 07/09/16 07/10/16 19:00 07:00 Intake Total 1200 ml 295 ml Balance 1200 ml 295 ml Intake Oral 1200 ml 240 ml IV Total 55 ml # Voids 4 3 # Bowel Movements 1 Laboratory Tests 07/10/16 06:15: White Blood Count 3.6L, Red Blood Count 4.21L, Hemoglobin 12.1L, Hematocrit 35.3L, Mean Corpuscular Volume 84, Mean Corpuscular Hemoglobin 28.7, Mean Corpuscular Hemoglobin Concent 34.2, Red Cell Distribution Width 12.0, Platelet Count 128L, Mean Platelet Volume 9.2, Neutrophils (%) (Auto) 41.2L, Lymphocytes (%) (Auto) 39.2, Monocytes (%) (Auto) 12.4H, Eosinophils (%) (Auto) 6.0H, Basophils (%) (Auto) 1.2, Sodium Level 138, Potassium Level 4.1, Chloride Level 97L, Carbon Dioxide Level 25, Anion Gap 16H, Blood Urea Nitrogen 11, Creatinine 1.1, Estimat Glomerular Filtration Rate > 60, Glucose Level 98, Calcium Level 8.6 Height (Feet): 5 Height (Inches): 5.00 Weight (Pounds): 170 EENT: PERRL/EOMI Neck: supple Cardiovascular: normal rate Respiratory/Chest: lungs clear Abdomen: soft Jesse Dean MD Jul 10, 2016 12:47
--- NOTE | 2016-07-10 13:34 | General Progress Note ---
Assessment/Plan Assessment/Plan ASSESSMENT: 1. Leukocytosis - due to underlying Histoplasmosis pneumonia v steriods; resolved. CT has dramatically improved on 07/05/16 2. Anemia secondary to chronic disease 3. Thrombocytopenia - new onset, monitor closely, patient on heparin sq 4. Nausea and vomiting - now improved 5. Community-acquired pneumonia on abx 6. Eosinophilia history that is resolved 7. Acute kidney injury - on HD, monitoring per renal RECOMMENDATIONS: 1. Maintain hgb >7 2. Monitor wbc counts 3. Followup on renal, ID, pulm recs 4. Anemia w/u has been reviewed 5. Repeat smear reviewed 6. DVT ppx with heparin sq 7. Stable from hematology for discharge 8. staff Thank you, Gerry Winston MD Subjective Constitutional: Reports: no symptoms HEENT: Reports: no symptoms Cardiovascular: Reports: no symptoms Respiratory: Reports: no symptoms Gastrointestinal/Abdominal: Reports: poor appetite Genitourinary: Reports: no symptoms Neurologic/Psychiatric: Reports: no symptoms Endocrine: Reports: no symptoms Hematologic/Lymphatic: Reports: anemia Allergies: Coded Allergies: PIPERACILLIN (Verified Adverse Reaction, Intermediate, 06/20/16) pt developed diffuse macular rash per ER MD notes. unclear if due to vanco or zosyn TAZOBACTAM (Verified Adverse Reaction, Intermediate, 06/20/16) pt developed diffuse macular rash per ER MD notes. unclear if due to vanco or zosyn VANCOMYCIN (Verified Adverse Reaction, Intermediate, 06/20/16) pt developed diffuse macular rash per ER MD notes. unclear if due to vanco or zosyn Subjective stable, is feeling better, is not bleeding Objective Last 24 Hour Vital Signs Date Time Temp Pulse Resp B/P Pulse Ox O2 Delivery O2 Flow Rate FiO2 07/10/16 12:04 98.6 80 20 118/78 99 Room Air 07/10/16 08:57 91 18 Room Air 07/10/16 08:31 75 120/84 07/10/16 07:55 97.7 75 20 120/84 96 Room Air 07/10/16 04:00 97.9 85 19 135/77 97 Room Air 07/10/16 00:45 97.9 87 20 123/70 97 Room Air 07/09/16 20:00 99.1 82 17 126/83 99 Room Air 07/09/16 19:53 76 18 Room Air 21 07/09/16 16:00 98.1 70 18 121/77 Room Air 99.0 Intake and Output 07/09/16 07/10/16 19:00 07:00 Intake Total 1200 ml 295 ml Balance 1200 ml 295 ml Intake Oral 1200 ml 240 ml IV Total 55 ml # Voids 4 3 # Bowel Movements 1 Laboratory Tests 07/10/16 06:15: White Blood Count 3.6L, Red Blood Count 4.21L, Hemoglobin 12.1L, Hematocrit 35.3L, Mean Corpuscular Volume 84, Mean Corpuscular Hemoglobin 28.7, Mean Corpuscular Hemoglobin Concent 34.2, Red Cell Distribution Width 12.0, Platelet Count 128L, Mean Platelet Volume 9.2, Neutrophils (%) (Auto) 41.2L, Lymphocytes (%) (Auto) 39.2, Monocytes (%) (Auto) 12.4H, Eosinophils (%) (Auto) 6.0H, Basophils (%) (Auto) 1.2, Sodium Level 138, Potassium Level 4.1, Chloride Level 97L, Carbon Dioxide Level 25, Anion Gap 16H, Blood Urea Nitrogen 11, Creatinine 1.1, Estimat Glomerular Filtration Rate > 60, Glucose Level 98, Calcium Level 8.6 Height (Feet): 5 Height (Inches): 5.00 Weight (Pounds): 170 General Appearance: no apparent distress EENT: TMs normal Neck: supple Cardiovascular: regular rhythm Respiratory/Chest: normal breath sounds Abdomen: non tender Extremities: non-tender Edema: no edema noted Leg (L), no edema noted Leg (R) Edema: mild edema Neurologic: alert Skin: warm/dry Gerry Winston Jul 10, 2016 13:34
[2016-07-10 16:05] VITALS: BP 114/80
--- NOTE | 2016-07-10 19:26 | Infectious Diseases Prog Note ---
Assessment/Plan Problems: (1) Lung abscess Assessment & Plan: repeated CT scan showed much improvement in his lung infiltrates and abscess while on Zyvox, cefepime and flagyl . it is highly recommended to continue zyvox as an outpatient since his sputum culture didn't show any growth to guide antibiotics choice, and he showed significant clinical improvement on zyvox , so I recommend to continue zyvox orally once he goes home with oral levaquin to finish his course of therapy for 4 weeks , EOT . he needs follow up with PCP after discharge. repeated blood culture remains negative. (2) HCAP (healthcare-associated pneumonia) Assessment & Plan: improving on repeated chest CT on zyvox , flagyl and cefepime , sputum and blood culture are negative so far . (3) Adverse reaction to antibiotic Assessment & Plan: unclear whether due to vancomycin VS zosyn , most likely vancomycin since it happened fast after infusion, suspect red man syndrome. avoid both classes of antibiotics for now, ok to use cephalosporins since he received it last admission with no reaction (4) Histoplasmosis pneumonia Assessment & Plan: continue itraconazole for three months total , monitor LFT (5) LISET (acute kidney injury) Assessment & Plan: resolved, had HD cath placed by renal, and had HD, HD cath was removed, avoid nephrotoxic meds. (6) Pancytopenia Assessment & Plan: drug induced, VS autoimmune, continue to monitor blood counts, may need to stop zyvox if continue to be pancytopenic , will monitor CBC Subjective Respiratory: Reports: productive cough Allergies: Coded Allergies: PIPERACILLIN (Verified Adverse Reaction, Intermediate, 06/20/16) pt developed diffuse macular rash per ER MD notes. unclear if due to vanco or zosyn TAZOBACTAM (Verified Adverse Reaction, Intermediate, 06/20/16) pt developed diffuse macular rash per ER MD notes. unclear if due to vanco or zosyn VANCOMYCIN (Verified Adverse Reaction, Intermediate, 06/20/16) pt developed diffuse macular rash per ER MD notes. unclear if due to vanco or zosyn All Systems: reviewed and negative except above Subjective he was doing well , no fever or chills, tolerated antibiotics well Objective Vital Signs Last 24 Hour Vital Signs Date Time Temp Pulse Resp B/P Pulse Ox O2 Delivery O2 Flow Rate FiO2 07/10/16 16:05 97.7 89 19 114/80 97 Room Air 07/10/16 12:04 98.6 80 20 118/78 99 Room Air 07/10/16 08:57 91 18 Room Air 21 07/10/16 08:31 75 120/84 07/10/16 07:55 97.7 75 20 120/84 96 Room Air 07/10/16 04:00 97.9 85 19 135/77 97 Room Air 07/10/16 00:45 97.9 87 20 123/70 97 Room Air 07/09/16 20:00 99.1 82 17 126/83 99 Room Air 07/09/16 19:53 76 18 Room Air 21 Height (Feet): 5 Height (Inches): 5.00 Weight (Pounds): 170 General Appearance: WD/WN, no acute distress HEENT: normocephalic, atraumatic, anicteric, mucous membranes moist, PERRL Respiratory/Chest: chest wall non-tender, lungs clear, normal breath sounds, no respiratory distress Cardiovascular: normal peripheral pulses, normal rate, regular rhythm, no gallop/murmur, no JVD Abdomen: normal bowel sounds, soft, non tender, no organomegaly, non distended , no mass, no scars Extremities: no cyanosis, no clubbing Skin: no rash, no lesions, no ulcers Laboratory Tests Test 07/10/16 06:15 White Blood Count 3.6 K/UL (4.8-10.8) L Red Blood Count 4.21 M/UL (4.70-6.10) L Hemoglobin 12.1 G/DL (14.2-18.0) L Hematocrit 35.3 % (42.0-52.0) L Mean Corpuscular Volume 84 FL (80-99) Mean Corpuscular Hemoglobin 28.7 PG (27.0-31.0) Mean Corpuscular Hemoglobin Concent 34.2 G/DL (32.0-36.0) Red Cell Distribution Width 12.0 % (11.6-14.8) Platelet Count 128 K/UL (150-450) L Mean Platelet Volume 9.2 FL (6.5-10.1) Neutrophils (%) (Auto) 41.2 % (45.0-75.0) L Lymphocytes (%) (Auto) 39.2 % (20.0-45.0) Monocytes (%) (Auto) 12.4 % (1.0-10.0) H Eosinophils (%) (Auto) 6.0 % (0.0-3.0) H Basophils (%) (Auto) 1.2 % (0.0-2.0) Sodium Level 138 mEQ/L (135-145) Potassium Level 4.1 mEQ/L (3.4-4.9) Chloride Level 97 mEQ/L (98-107) L Carbon Dioxide Level 25 mEQ/L (20-30) Anion Gap 16 (5-15) H Blood Urea Nitrogen 11 mg/dL (7-23) Creatinine 1.1 mg/dL (0.7-1.2) Estimat Glomerular Filtration Rate > 60 mL/min (>60) Glucose Level 98 mg/dL (74-106) Calcium Level 8.6 mg/dL (8.6-10.2) Current Medications Medications (Trade) Dose Ordered Sig/Keila Route PRN Reason Start Time Stop Time Status Last Admin Dose Admin Acetaminophen (Tylenol) 650 mg Q4H PRN ORAL fever 06/23/16 21:00 07/23/16 20:59 07/06/16 00:42 Albuterol/ Ipratropium (DuoNeb 0.5-3(2.5)mg/3ml) 3 ml Q4H PRN HHN sob 07/09/16 10:45 07/14/16 10:44 Allopurinol (Allopurinol) 300 mg DAILY ORAL 06/29/16 09:00 07/29/16 08:59 07/10/16 08:31 Amlodipine Besylate 5 mg 5 mg DAILY ORAL 07/05/16 09:00 08/04/16 08:59 07/10/16 08:31 Cefepime HCl/ Dextrose (Maxipime/D5W) 55 ml @ 110 mls/hr Q12HR IVPB 07/05/16 21:00 07/12/16 20:59 07/10/16 08:31 Clonidine HCl (Catapres) 0.1 mg Q4H PRN ORAL BP over 170 syst 06/23/16 21:00 07/23/16 20:59 Heparin Sodium (Porcine) (Heparin 5000 units/ml) 5,000 units EVERY 12 HOURS SUBQ 06/23/16 21:00 07/23/16 20:59 07/08/16 20:53 Itraconazole (Sporanox) 200 mg Q12HR ORAL 07/10/16 21:00 07/17/16 20:59 Linezolid (Zyvox) 600 mg Q12HR ORAL 06/23/16 21:00 07/13/16 20:59 07/10/16 08:31 Magnesium Oxide (Mag-Ox 400mg) 400 mg THREE TIMES A DAY ORAL 06/29/16 13:00 07/29/16 12:59 07/10/16 18:47 Metronidazole (Flagyl) 500 mg Q8HR ORAL 06/23/16 22:00 07/13/16 21:59 07/10/16 12:21 Nitroglycerin (Ntg) 0.4 mg Q5MIN X3 PRN SL Prn Chest Pain 06/23/16 18:15 07/23/16 18:14 Ondansetron HCl (Zofran) 4 mg Q6H PRN IVP Nausea & Vomiting 06/23/16 19:00 07/23/16 18:59 Polyethylene Glycol (Miralax) 17 gm DAILYPRN PRN ORAL Constipation 06/24/16 13:00 07/24/16 12:59 Promethazine HCl/ Codeine (Phenergan with Codeine) 5 ml Q4H PRN ORAL For Cough 06/23/16 21:00 07/23/16 20:59 07/09/16 20:16 Ranitidine HCl (Zantac) 150 mg BEDTIME ORAL 06/24/16 21:00 07/24/16 20:59 07/09/16 20:10 Erin Navarrete M.D. Jul 10, 2016 19:26
[2016-07-10 20:26] VITALS: BP 112/82
[2016-07-10] MEDS: Promethazine/Codeine 5ml UD ORAL PRN (21:56)
[2016-07-11] VITALS: BP 125/77
[2016-07-11 04:00] VITALS: BP 124/72
[2016-07-11] MEDS: metroNIDAZOLE 500mg tab ORAL SCH ×2 (05:23→12:41)
[2016-07-11 08:00] VITALS: BP 135/87
[2016-07-11] MEDS: Cefepime HCl 1 GM in D5W 55 ML IVPB SCH (08:17)
[2016-07-11] MEDS: Magnesium Oxide 400mg tab ORAL SCH ×2 (08:18→12:41)
[2016-07-11] MEDS: Heparin 5000 units/ml inj SUBQ SCH (08:18)
--- NOTE | 2016-07-11 10:33 | General Progress Note ---
Assessment/Plan Status: stable Status Narrative CR now WNL Assessment/Plan Status: Acute renal failure ( Allergic vs Sepsis) / RESOLVED Urine positive for Eosinophils leading to Allergic etiology Other: 1) Lung abscess (2) Pneumonia (3) HTN (hypertension) (4) Adverse reaction to antibiotic (5) Pleurisy (6) HCAP (healthcare-associated pneumonia) Plan: I discontinued the right jugular dialysis catheter monitor renal parameters- HD last 06/25, Cr lowering without HD ok to DC from renal stand point meds reviewed Subjective ROS Limited/Unobtainable: No Allergies: Coded Allergies: PIPERACILLIN (Verified Adverse Reaction, Intermediate, 06/20/16) pt developed diffuse macular rash per ER MD notes. unclear if due to vanco or zosyn TAZOBACTAM (Verified Adverse Reaction, Intermediate, 06/20/16) pt developed diffuse macular rash per ER MD notes. unclear if due to vanco or zosyn VANCOMYCIN (Verified Adverse Reaction, Intermediate, 06/20/16) pt developed diffuse macular rash per ER MD notes. unclear if due to vanco or zosyn Objective Last 24 Hour Vital Signs Date Time Temp Pulse Resp B/P Pulse Ox O2 Delivery O2 Flow Rate FiO2 07/11/16 08:17 81 130/72 07/11/16 08:00 98.8 93 19 135/87 94 Room Air 07/11/16 07:45 76 18 Room Air 21 07/11/16 04:00 98.2 83 18 124/72 97 Room Air 07/11/16 00:00 98.1 84 18 125/77 97 Room Air 07/10/16 20:26 98.1 88 18 112/82 94 Room Air 07/10/16 19:00 93 18 Room Air 21 07/10/16 16:05 97.7 89 19 114/80 97 Room Air 07/10/16 12:04 98.6 80 20 118/78 99 Room Air Intake and Output 07/10/16 07/11/16 18:59 06:59 Intake Total 450 ml 360 ml Balance 450 ml 360 ml Intake Oral 450 ml 360 ml # Voids 2 3 Height (Feet): 5 Height (Inches): 5.00 Weight (Pounds): 170 Objective PE no change MILA GARCIA Jul 11, 2016 10:33
--- NOTE | 2016-07-11 11:27 | General Progress Note ---
Assessment/Plan Problem List: (1) Histoplasmosis pneumonia ICD Codes: B39.2 - Pulmonary histoplasmosis capsulati, unspecified SNOMED: 284034286 (2) Vomiting ICD Codes: R11.10 - Vomiting, unspecified SNOMED: 208274586 (3) Adverse reaction to antibiotic ICD Codes: T36.95XA - Adverse effect of unspecified systemic antibiotic, initial encounter SNOMED: 372729541, 579977788 Qualifiers: Qualified Codes: T36.95XA - Adverse effect of unspecified systemic antibiotic, initial encounter (4) Cavitary lung disease ICD Codes: J98.4 - Other disorders of lung SNOMED: 79872457 (5) Pneumonia ICD Codes: J18.9 - Pneumonia, unspecified organism SNOMED: 956141949 (6) HTN (hypertension) ICD Codes: I10 - Essential (primary) hypertension SNOMED: 25851263 Qualifiers: Qualified Codes: I10 - Essential (primary) hypertension (7) Hyperlipidemia, mixed ICD Codes: E78.2 - Mixed hyperlipidemia SNOMED: 975719619 (8) Pleurisy ICD Codes: R09.1 - Pleurisy SNOMED: 644767821 Status: progressing Assessment/Plan afebrile pna improving abx per id no change reviewed chart and labs Subjective ROS Limited/Unobtainable: Yes Constitutional: Reports: no symptoms Allergies: Coded Allergies: PIPERACILLIN (Verified Adverse Reaction, Intermediate, 06/20/16) pt developed diffuse macular rash per ER MD notes. unclear if due to vanco or zosyn TAZOBACTAM (Verified Adverse Reaction, Intermediate, 06/20/16) pt developed diffuse macular rash per ER MD notes. unclear if due to vanco or zosyn VANCOMYCIN (Verified Adverse Reaction, Intermediate, 06/20/16) pt developed diffuse macular rash per ER MD notes. unclear if due to vanco or zosyn Objective Last 24 Hour Vital Signs Date Time Temp Pulse Resp B/P Pulse Ox O2 Delivery O2 Flow Rate FiO2 07/11/16 08:17 81 130/72 07/11/16 08:00 98.8 93 19 135/87 94 Room Air 07/11/16 07:45 76 18 Room Air 21 07/11/16 04:00 98.2 83 18 124/72 97 Room Air 07/11/16 00:00 98.1 84 18 125/77 97 Room Air 07/10/16 20:26 98.1 88 18 112/82 94 Room Air 07/10/16 19:00 93 18 Room Air 21 07/10/16 16:05 97.7 89 19 114/80 97 Room Air 07/10/16 12:04 98.6 80 20 118/78 99 Room Air Intake and Output 07/10/16 07/11/16 19:00 07:00 Intake Total 450 ml 360 ml Balance 450 ml 360 ml Intake Oral 450 ml 360 ml # Voids 2 3 Height (Feet): 5 Height (Inches): 5.00 Weight (Pounds): 170 EENT: PERRL/EOMI Neck: supple Cardiovascular: normal rate Respiratory/Chest: lungs clear Abdomen: soft Jesse Dean MD Jul 11, 2016 11:27
[2016-07-11 12:00] VITALS: BP 123/82
--- NOTE | 2016-07-11 12:30 | General Progress Note ---
Assessment/Plan Assessment/Plan ASSESSMENT: 1. Leukocytosis - due to underlying Histoplasmosis pneumonia v steriods; resolved. CT has dramatically improved on 07/05/16 2. Anemia secondary to chronic disease 3. Thrombocytopenia - new onset, monitor closely, patient on heparin sq 4. Nausea and vomiting - now improved 5. Community-acquired pneumonia on abx 6. Eosinophilia history that is resolved 7. Acute kidney injury - on HD, monitoring per renal RECOMMENDATIONS: 1. Maintain hgb >7 2. Monitor wbc counts 3. Followup on renal, ID, pulm recs 4. Anemia w/u has been reviewed 5. Repeat smear reviewed 6. DVT ppx with heparin sq 7. Stable from hematology for discharge 8. staff Thank you, Gerry Winston MD Subjective Constitutional: Reports: no symptoms HEENT: Reports: no symptoms Cardiovascular: Reports: no symptoms Respiratory: Reports: no symptoms Gastrointestinal/Abdominal: Reports: no symptoms Genitourinary: Reports: no symptoms Neurologic/Psychiatric: Reports: no symptoms Endocrine: Reports: no symptoms Hematologic/Lymphatic: Reports: anemia Allergies: Coded Allergies: PIPERACILLIN (Verified Adverse Reaction, Intermediate, 06/20/16) pt developed diffuse macular rash per ER MD notes. unclear if due to vanco or zosyn TAZOBACTAM (Verified Adverse Reaction, Intermediate, 06/20/16) pt developed diffuse macular rash per ER MD notes. unclear if due to vanco or zosyn VANCOMYCIN (Verified Adverse Reaction, Intermediate, 06/20/16) pt developed diffuse macular rash per ER MD notes. unclear if due to vanco or zosyn Subjective stable, is feeling better, not bleeding Objective Last 24 Hour Vital Signs Date Time Temp Pulse Resp B/P Pulse Ox O2 Delivery O2 Flow Rate FiO2 07/11/16 08:17 81 130/72 07/11/16 08:00 98.8 93 19 135/87 94 Room Air 07/11/16 07:45 76 18 Room Air 21 07/11/16 04:00 98.2 83 18 124/72 97 Room Air 07/11/16 00:00 98.1 84 18 125/77 97 Room Air 07/10/16 20:26 98.1 88 18 112/82 94 Room Air 07/10/16 19:00 93 18 Room Air 21 07/10/16 16:05 97.7 89 19 114/80 97 Room Air Intake and Output 07/10/16 07/11/16 19:00 07:00 Intake Total 450 ml 360 ml Balance 450 ml 360 ml Intake Oral 450 ml 360 ml # Voids 2 3 Height (Feet): 5 Height (Inches): 5.00 Weight (Pounds): 170 General Appearance: no apparent distress EENT: TMs normal Neck: normal alignment Cardiovascular: regular rhythm Respiratory/Chest: no respiratory distress Abdomen: no organomegaly Extremities: non-tender Edema: 1+ Leg (L), 1+ Leg (R) Edema: mild edema Neurologic: no motor/sensory deficits Skin: warm/dry Gerry Winston Jul 11, 2016 12:30
[2016-07-11 13:07] LABS: BASOPHILS % (AUTO) 0.7 % (0.0-2.0); EOSINOPHILS % (AUTO) 4.6 % (0.0-3.0); LYMPHOCYTES % (AUTO) 31.4 % (20.0-45.0); MEAN CORPUSCULAR HEMOGLOBIN 28.7 PG (27.0-31.0); MEAN CORPUSCULAR HGB CONC 34.3 G/DL (32.0-36.0); MEAN CORPUSCULAR VOLUME 84 FL (80-99); MEAN PLATELET VOLUME 8.8 FL (6.5-10.1); MONOCYTES % (AUTO) 7.8 % (1.0-10.0); NEUTROPHILS % (AUTO) 55.5 % (45.0-75.0); PLATELET COUNT 150 K/UL (150-450); RED BLOOD COUNT 4.39 M/UL (4.70-6.10); RED CELL DISTRIBUTION WIDTH 11.9 % (11.6-14.8); WHITE BLOOD COUNT 5.4 K/UL (4.8-10.8)
[2016-07-11] MEDS ORDERED: ZYVOX600 MG ORAL (14:04)
[2016-07-11] MEDS ORDERED: LEVOFLOXACIN750 MG ORAL (14:05)
[2016-07-11] MEDS ORDERED: NS 275ml ONE (14:31)
--- NOTE | 2016-07-11 14:48 | Pulmonology Progress Note ---
Assessment/Plan Problems: (1) Lung abscess (2) Pneumonia (3) HTN (hypertension) (4) Adverse reaction to antibiotic (5) Pleurisy (6) HCAP (healthcare-associated pneumonia) Assessment/Plan afebrile finished IV antibiotics dc planning Subjective ROS Limited/Unobtainable: No Constitutional: Reports: no symptoms HEENT: Repors: no symptoms Respiratory: Reports: no symptoms Allergies: Coded Allergies: PIPERACILLIN (Verified Adverse Reaction, Intermediate, 06/20/16) pt developed diffuse macular rash per ER MD notes. unclear if due to vanco or zosyn TAZOBACTAM (Verified Adverse Reaction, Intermediate, 06/20/16) pt developed diffuse macular rash per ER MD notes. unclear if due to vanco or zosyn VANCOMYCIN (Verified Adverse Reaction, Intermediate, 06/20/16) pt developed diffuse macular rash per ER MD notes. unclear if due to vanco or zosyn Objective Last 24 Hour Vital Signs Date Time Temp Pulse Resp B/P Pulse Ox O2 Delivery O2 Flow Rate FiO2 07/11/16 12:00 98.1 86 20 123/82 95 Room Air 07/11/16 08:17 81 130/72 07/11/16 08:00 98.8 93 19 135/87 94 Room Air 07/11/16 07:45 76 18 Room Air 21 07/11/16 04:00 98.2 83 18 124/72 97 Room Air 07/11/16 00:00 98.1 84 18 125/77 97 Room Air 07/10/16 20:26 98.1 88 18 112/82 94 Room Air 07/10/16 19:00 93 18 Room Air 21 07/10/16 16:05 97.7 89 19 114/80 97 Room Air Intake and Output 07/10/16 07/11/16 18:59 06:59 Intake Total 450 ml 360 ml Balance 450 ml 360 ml Intake Oral 450 ml 360 ml # Voids 2 3 General Appearance: WD/WN HEENT: normocephalic Respiratory/Chest: chest wall non-tender, normal breath sounds Cardiovascular: normal rate, regularly irregular Abdomen: soft, non tender Laboratory Tests 07/11/16 12:55: White Blood Count 5.4, Red Blood Count 4.39L, Hemoglobin 12.6L, Hematocrit 36.7L , Mean Corpuscular Volume 84, Mean Corpuscular Hemoglobin 28.7, Mean Corpuscular Hemoglobin Concent 34.3, Red Cell Distribution Width 11.9, Platelet Count 150, Mean Platelet Volume 8.8, Neutrophils (%) (Auto) 55.5, Lymphocytes (% ) (Auto) 31.4, Monocytes (%) (Auto) 7.8, Eosinophils (%) (Auto) 4.6H, Basophils (%) (Auto) 0.7 SAGAR CHRIS Jul 11, 2016 14:48
--- NOTE | 2016-07-11 18:09 | Infectious Diseases Prog Note ---
Assessment/Plan Problems: (1) Lung abscess Assessment & Plan: repeated CT scan showed much improvement in his lung infiltrates and abscess while on Zyvox, cefepime and flagyl . it is highly recommended to continue zyvox as an outpatient since his sputum culture didn't show any growth to guide antibiotics choice, and he showed significant clinical improvement on zyvox , so I recommend to continue zyvox orally once he goes home with oral levaquin to finish his course of therapy for 4 weeks , EOT . he needs follow up with PCP after discharge. repeated blood culture remains negative. (2) HCAP (healthcare-associated pneumonia) Assessment & Plan: improving on repeated chest CT on zyvox , flagyl and cefepime , sputum and blood culture are negative so far . (3) Adverse reaction to antibiotic Assessment & Plan: unclear whether due to vancomycin VS zosyn , most likely vancomycin since it happened fast after infusion, suspect red man syndrome. avoid both classes of antibiotics for now, ok to use cephalosporins since he received it last admission with no reaction (4) Histoplasmosis pneumonia Assessment & Plan: continue itraconazole for three months total , monitor LFT (5) LISET (acute kidney injury) Assessment & Plan: resolved, had HD cath placed by renal, and had HD, HD cath was removed, avoid nephrotoxic meds. (6) Pancytopenia Assessment & Plan: improved, continue to monitor blood counts, monitor CBC as an outpatient Subjective Constitutional: Denies: anorexia, chills, drenching sweats, fatigue, fever, no symptoms, other HEENT: Denies: congestion, coryza, dysphagia, hearing change, no symptoms, other, visual change Respiratory: Denies: dry cough, no symptoms, other, productive cough, shortness of breath Breasts: Denies: discharge, no symptoms, other, swelling, tenderness Cardiovascular: Denies: chest pain, dyspnea on exertion, no symptoms, other, palpitations Gastrointestinal/Abdominal: Denies: bloating, blood in stool, constipation, diarrhea, nausea, no symptoms, other, vomiting Genitourinary: Denies: dysuria, frequency, hematuria, no symptoms, nocturia, other Neurologic: Denies: confusion, headache, no symptoms, numbness, other, weakness Psychiatric: Denies: anxiety, depression, no symptoms, other Skin: Denies: no symptoms, other, rash, ulcer Endocrine: Denies: feels cold, feels warm, no symptoms, other Allergies: Coded Allergies: PIPERACILLIN (Verified Adverse Reaction, Intermediate, 06/20/16) pt developed diffuse macular rash per ER MD notes. unclear if due to vanco or zosyn TAZOBACTAM (Verified Adverse Reaction, Intermediate, 06/20/16) pt developed diffuse macular rash per ER MD notes. unclear if due to vanco or zosyn VANCOMYCIN (Verified Adverse Reaction, Intermediate, 06/20/16) pt developed diffuse macular rash per ER MD notes. unclear if due to vanco or zosyn Subjective he was doing well , no fever or chills, tolerated antibiotics well Objective Vital Signs Last 24 Hour Vital Signs Date Time Temp Pulse Resp B/P Pulse Ox O2 Delivery O2 Flow Rate FiO2 07/11/16 12:00 98.1 86 20 123/82 95 Room Air 07/11/16 08:17 81 130/72 07/11/16 08:00 98.8 93 19 135/87 94 Room Air 07/11/16 07:45 76 18 Room Air 21 07/11/16 04:00 98.2 83 18 124/72 97 Room Air 07/11/16 00:00 98.1 84 18 125/77 97 Room Air 07/10/16 20:26 98.1 88 18 112/82 94 Room Air 07/10/16 19:00 93 18 Room Air 21 Height (Feet): 5 Height (Inches): 5.00 Weight (Pounds): 170 General Appearance: WD/WN, no acute distress HEENT: normocephalic, atraumatic, anicteric, mucous membranes moist Respiratory/Chest: chest wall non-tender, lungs clear, normal breath sounds, no respiratory distress, no accessory muscle use Cardiovascular: normal peripheral pulses, normal rate, regular rhythm, no gallop/murmur, no JVD Abdomen: normal bowel sounds, soft, non tender, no organomegaly, non distended , no mass, no scars Extremities: no cyanosis, no clubbing Skin: no rash, no lesions, no ulcers Laboratory Tests Test 07/11/16 12:55 White Blood Count 5.4 K/UL (4.8-10.8) Red Blood Count 4.39 M/UL (4.70-6.10) L Hemoglobin 12.6 G/DL (14.2-18.0) L Hematocrit 36.7 % (42.0-52.0) L Mean Corpuscular Volume 84 FL (80-99) Mean Corpuscular Hemoglobin 28.7 PG (27.0-31.0) Mean Corpuscular Hemoglobin Concent 34.3 G/DL (32.0-36.0) Red Cell Distribution Width 11.9 % (11.6-14.8) Platelet Count 150 K/UL (150-450) Mean Platelet Volume 8.8 FL (6.5-10.1) Neutrophils (%) (Auto) 55.5 % (45.0-75.0) Lymphocytes (%) (Auto) 31.4 % (20.0-45.0) Monocytes (%) (Auto) 7.8 % (1.0-10.0) Eosinophils (%) (Auto) 4.6 % (0.0-3.0) H Basophils (%) (Auto) 0.7 % (0.0-2.0) Erin Navarrete M.D. Jul 11, 2016 18:09
--- NOTE | 2016-07-12 11:13 | Discharge Summary ---
Discharge Summary Hospital Course Date of Admission Jun 19, 2016 at 14:15 Date of Discharge Jul 11, 2016 at 14:32 Admitting Diagnosis Pneumonia, Allergic reaction HPI Kerwin Barragan is a 35 year old male who was admitted on Jun 19, 2016 at 14:15 for Pneumonia, Allergic Reaction Hospital Course dc summary dictated #[id number] Discharge Condition Upon Discharge: stable Discharge Disposition Patient was discharged to Home () Discharge Diagnoses: Garth (Jessica),Yanci MACHUCA Jul 12, 2016 11:13
[2016-07-12] MEDS ORDERED: ZYVOX600 MG ORAL (11:45)
[2016-07-12] MEDS ORDERED: LEVAQUIN500 MG ORAL (11:45)
[2016-07-12] MEDS ORDERED: SPORANOX100 MG ORAL ×2 (11:45→11:46)
--- NOTE | 2016-07-13 05:07 | Discharge Summary 2 SIG ---
DATE OF ADMISSION: 06/19/2016 DATE OF DISCHARGE: 07/11/2016 REASON FOR ADMISSION: 35-year-old male presented for cough, fever, and vomiting. The patient was admitted to the hospital 1 month prior and was diagnosed with Histoplasmosis pneumonia with multiple cavitary lesions. The patient was discharged home on Itraconazole, which helped the patient, however, the patient admitted to subjective fever, chills, cough, and came for further evaluation. The patient denied at that time hemoptysis or hematemesis. No abdominal pain. No diarrhea. No constipation. Denied chest pain. Denied numbness and tingling in his extremities. Laboratory work in the emergency room revealed leukocytosis with left shift. Electrolytes were stable. Lactic acid was within normal limits. Chest x-ray revealed right lower lobe effusion. The patient was started on IV fluids. Intravenous antibiotics including Zosyn, vancomycin, and antiemetic provided. However, during the infusion of vancomycin, diffuse erythematous macular rash developed. The patient was given IM epi and Benadryl, rash decreased. Pulse oximetry was 85% on 4 liters via face mask. The patient was given nebulizing treatment with bronchodilator, started on BiPAP, and admitted to the hospital for further management. ADMITTING DIAGNOSES: 1. Histoplasmosis pneumonia. 2. Adverse reaction to antibiotics. HOSPITAL COURSE: The patient initially on the BiPAP until pulse oximetry stabilized. The patient had initial CAT scan of the chest done next day after admission, which revealed a 9 centimeter parenchymal abscess in the right pulmonary upper/middle lobe, surrounding parenchymal consolidation may be atelectasis or pneumonic in nature, this was not amenable to percutaneous catheter drainage. New multifocal parenchymal airspace opacity suspicious for disseminated pneumonia. ID consult requested. Pulmonary consult requested. The patient was started on empiric antibiotics. Influenza screen was negative. Sputum culture was negative. Blood culture repeated twice and were negative. The patient was treated per ID doctor recommendations. The patient was treated with Zyvox, cefepime, and Flagyl for the lung abscess and highly recommended when discharged home to go on oral Levaquin and Zyvox for additional four weeks since sputum culture did not show any growth, and patient showed significant clinical improvement on Zyvox. ID doctor recommended additional 1 month on Zyvox and Levaquin. The adverse reaction to antibiotic most likely secondary to vancomycin, since it happened right after infusion ,suspected red-man syndrome, however, recommended to avoid both classes of antibiotics: Zosyn and vancomycin -for now. Per ID, okay to use cephalosporin since the patient received it on the previous admission with no reaction. The patient was to be continued on itraconazole for a total of 3 months. LFTs were closely monitored. However, during the course of the treatment, the patient developed acute renal failure, allergic versus sepsis as well as interstitial nephritis. Nephrology consult was requested. Salon Stylist initially attempted generous hydration as well as the short pulse of steroids, however without much success. Hemodialysis catheter was subsequently inserted, and the patient started on hemodialysis. Eventually, able to stop hemodialysis and hemodialysis catheter was discontinued. Creatinine on 07/10/2016 is 1.1. Recommended to avoid nephrotoxic. The patient was on Med/Surg floor, supplemental oxygen and pulmonary toilet provided as needed. The patient was on antibiotic under guidance of ID specialist. Repeated CT of the chest pain revealed markedly improved anterior right thoracic collection, which was smaller, filled only with air and demonstrated thinner jay, presumably reflecting resolving lung abscess. The patient clinically felt much better. Pulse oximetry on the room air was stable. As mentioned above, all cultures were negative. The patient was continued on IV antibiotics and itraconazole while in the hospital and upon discharge recommended oral Levaquin and Zyvox for one month as well as the itraconazole for total of 3 months. Antitussive provided as needed. Salon Stylist closely followed. No further renal issues. Renal ultrasound negative. No hydronephrosis, slow hydration continued until discharge. Renal parameters and electrolytes closely monitored and were stable. Presumed acute renal failure, likely secondary to allergic cause since urine was positive for eosinophils. DVT and GI prophylaxis provided. All consultants cleared for discharge. DISCHARGE MEDICATIONS: See medication reconciliation list. DISCHARGE INSTRUCTIONS: The patient was discharged home to follow up with the primary medical doctor. Recommended repeat CT of the chest after all antibiotics completed. The patient was reminded if he develops fever, chills, cough, shortness of breath, pleuritic chest pain, come back to the emergency room. Tab Dean M.D. Yanci Liang N.P. ([place]) DR: DEVYN JOB#: [id number] CC: BUTCH
== END 2016-07-11 14:32 | disposition home or self-care (01) | DRG 137 ==
LOC: ENRESERVDT → ENRESERVTM → EMR 13:25 → 2W 14:15 → EDBEDREQSVC 16:34 → EDBEDREQ 16:34 → 2W 19:55 → 4W 06-21 02:53 → ICU 06-21 11:50 → 2W 06-22 12:42 → 3E 06-23 18:30
PROC: 3E03328 Introduction of Oxazolidinones into Peripheral Vein, Percutaneous Approach (ICD-10-PCS; principal; 2016-06-19)
PROC: 5A09357 Assistance with Respiratory Ventilation, Less than 24 Consecutive Hours, Continuous Positive Airway Pressure (ICD-10-PCS; 2016-06-19)
PROC: 5A1D60Z (ICD-10-PCS; 2016-06-21)
PROC: 05HM33Z Insertion of Infusion Device into Right Internal Jugular Vein, Percutaneous Approach (ICD-10-PCS; 2016-06-21)
DX: J85.1 Abscess of lung with pneumonia (principal); B39.2 Pulmonary histoplasmosis capsulati, unspecified; N17.9 Acute kidney failure, unspecified; D61.818 Other pancytopenia; D69.6 Thrombocytopenia, unspecified; I10 Essential (primary) hypertension; T36.95XA Adverse effect of unspecified systemic antibiotic, initial encounter; Z88.1 Allergy status to other antibiotic agents; J98.4 Other disorders of lung; D63.8 Anemia in other chronic diseases classified elsewhere; E86.0 Dehydration; E78.2 Mixed hyperlipidemia; R09.1 Pleurisy; R00.0 Tachycardia, unspecified; N12 Tubulo-interstitial nephritis, not specified as acute or chronic; R11.2 Nausea with vomiting, unspecified
CPT/HCPCS: 36415; 36569; 71010; 71020; 71250; 76604; 76775; 76937; 80048; 80053; 80069; 81003; 82164; 82550; 82553; 82728; 82977; 83605; 83690; 83735; 83880; 84100; 84300; 84439; 84443; 84550; 85007; 85025; 85032; 85610; 85730; 86140; 86705; 86709; 86710; 86803; 87040; 87070; 87081; 87205; 87340; 89050; 93005; 94640; 94660; 94664; 94760; J2405; J2765; J7620